=== PATIENT | female | born 1935 | race Caucasian/White ===

== ENCOUNTER 2016-08-09 13:49 | Inpatient (IN) | payer MEDICARE ==
[2016-08-09] MEDS ORDERED: NS 0.9% 1000 ML* 1,000 ML IV ONE (14:40)
[2016-08-09 14:55] LABS: Hematocrit 33 % (35-47); Mean Corpuscular HGB Conc 33 g/dl (31-36); Mean Corpuscular Hemoglobin 29 pg (27-31); Mean Corpuscular Volume 88 fL (80-97); Mean Platelet Volume 8 um3 (7.4-10.4); Red Blood Count 3.73 10^6/ul (4.0-5.4); Red Cell Distribution Width 14 % (10.5-15); White Blood Count 10.8 10^3/ul (3.5-10.8)
[2016-08-09] MEDS ORDERED: Vancomycin(*) 1,500 MG in NS 0.9% 250 ML* 250 ML IVPB ONE (15:04)
[2016-08-09] MEDS ORDERED: Cefepime(*) 2 GM in NS 0.9% 50 ML* 50 ML IVPB ONE (15:05)
[2016-08-09 15:07] LABS: Albumin 3.1 g/dL (3.2-5.2); BUN/Creatinine Ratio 16.7 (8-20); EGFR African American 62.5 (>60); EGFR Non-African American 48.6 (>60); Globulin 3.9 g/dL (2-4); Potassium 2.8 mmol/L (3.5-5.0)
[2016-08-09 15:13] LABS: Troponin I 0.11 ng/mL (<0.04)
[2016-08-09 15:25] LABS: C Reactive Protein 351.78 mg/L (< 5.00)
[2016-08-09] MEDS ORDERED: NS 0.9% 250 ML* 250 ML ONE (15:52)
[2016-08-09 16:05] LABS: Erythrocyte Sed Rate 112 mm/Hr (0-40)
--- NOTE | 2016-08-09 16:09 | RAD ---
INDICATION: Fever COMPARISON: Most recent comparison chest x-ray is dated August 24, 2014 TECHNIQUE: Single AP portable view of the chest was obtained. FINDINGS: Image quality is compromised due to the relative inferiority of a portable chest x-ray. The heart and mediastinum exhibit normal size and contour. There is been interval development of a 8 cm mass overlying the lateral aspect of the right upper lobe. The mass abuts the chest wall. There is no evidence of a large pleural effusion. Visualized bones are normal for the patient's age. IMPRESSION: 8 cm mass overlying the right lateral aspect of the right upper lobe which could represent infectious pneumonia or a neoplastic mass. Follow-up chest x-ray after an appropriate course of therapy is recommended to ascertain resolution.
--- NOTE | 2016-08-09 16:11 | RAD ---
INDICATION: Fever COMPARISON: None TECHNIQUE: 4 view radiograph of the right knee. FINDINGS: The right knee prosthesis is anatomically aligned. There is no evidence of periprosthetic fracture or loosening. There is no joint effusion. IMPRESSION: Normal appearance of anatomically aligned right knee prosthesis. If the patient's symptoms persist, follow-up imaging is recommended.
--- NOTE | 2016-08-09 17:16 | RAD ---
INDICATION: Better characterize right upper lobe mass COMPARISON: Same day chest x-ray that shows an approximately 8 cm mass overlying the lateral aspect of the right upper lobe. TECHNIQUE: Axial source images of the chest were acquired without intravenous contrast from just above the lung apices to the base of the diaphragm. Coronal and sagittal reconstructed images were acquired. FINDINGS: Corresponding to the mass seen on the same day chest x-ray there is patchy density overlying the right upper lobe measuring 4.6 x 9.5 cm in the axial plane at its most confluent portion. There are additional patchy densities neighboring this mass. There are air bronchograms. Linear density in the posterior aspect of the right middle and left lower lobes have a morphology more consistent with atelectasis. There is no large pleural effusion. The heart is normal in size. There is no evidence of pericardial effusion. There is no evidence of aortic aneurysm or dissection. Calcification is noted at the aortic arch and origin of the great arch branching vessels. Mediastinal lymph nodes are visualized but none are pathologically enlarged. There is no pathologic lymphadenopathy in either axilla. Multilevel degenerative changes of the thoracic spine include loss of intervertebral disc height and vacuum disc phenomenon. There is a right of midline fat-containing ventral hernia. Otherwise limited views of the upper abdomen show no acute abnormalities. IMPRESSION: 1. Predominantly right upper lobe density exhibiting air bronchograms exhibits a morphology most consistent with infectious pneumonia, however neoplasm is not excluded on this imaging alone. Follow-up imaging after an appropriate course of therapy is advised to ascertain resolution. 2. Additional chronic and degenerative findings described in the body of the report.
[2016-08-09] MEDS ORDERED: Morphine INJ* 2 MG/ML 1 ML CARPUJECT IV PRN (17:17)
--- NOTE | 2016-08-09 17:17 | ADMNOTE ---
Subjective Date of Service: 08/09/16 Interval History: ADMISSION HISTORY AND PHYSICAL EXAM: Allergies Allergy/AdvReac Type Severity Reaction Status Date / Time Adhesive Tape Allergy Rash Verified 03/09/16 09:51 Ciprofloxacin [From Cipro] AdvReac Vomiting Verified 03/09/16 09:51 Erythromycin AdvReac Vomiting Verified 03/09/16 09:51 Iodine AdvReac Anaphylatic Verified 03/09/16 09:51 Shock Penicillins AdvReac Hives/Diff. Verified 03/09/16 09:51 Breathing/I tching Sulfa Drugs AdvReac Nausea Verified 03/09/16 09:51 Tetracycline AdvReac Nausea Verified 03/09/16 09:51 Home Medications Medication Instructions Recorded Confirmed Type Montelukast Sodium TAB* [Singulair 10 mg PO DAILY 05/09/12 06/26/16 History 5 mg TAB*] Apple Cider Vinegar 600 mg PO DAILY 03/19/14 06/26/16 History Dicyclomine CAP* [Bentyl CAP*] 10 mg PO QID 03/19/14 06/26/16 History Estropipate(NF) [Ogen(NF)] 0.75 mg PO QAM 03/19/14 06/26/16 History Fluticasone NASAL * [Flonase *] 2 spray BOTH NARES DAILY 03/19/14 06/26/16 History Lhrnflhrclw-LCI-Lve C-Manganes 1 tab PO DAILY 03/19/14 06/26/16 History [Glucosamine MSM Complex] Levothyroxine TAB* [Synthroid 100 100 mcg PO 0800 03/19/14 06/26/16 History MCG TAB*] Magnesium Gluconate [Mag-G] 500 mg PO DAILY 03/19/14 06/26/16 History Ondansetron [Zofran Odt] 8 mg SL Q6H PRN 03/19/14 06/26/16 History oxyCODONE TAB* [Roxycodone TAB 5 5 - 10 mg PO Q6H PRN MDD 40 mg 03/19/14 History mg*] Docusate CAP* [Colace Cap*] 100 mg PO BID 08/22/14 06/26/16 History Meclizine TAB* [Antivert 12.5 TAB*] 25 mg PO QID PRN 01/16/16 06/26/16 History Methocarbamol TAB* [Robaxin TAB*] 500 mg PO Q6H PRN 01/16/16 06/26/16 History Mometasone/Formoter 200/5 MDI* 2 puff INH BID 01/16/16 06/26/16 History [Dulera 200/5 MDI*] Multivitamins/Minerals TAB* 1 tab PO DAILY 01/16/16 06/26/16 History [Theragran/minerals TAB*] Potassium Chlor TAB* [Potassium 20 meq PO QID 01/16/16 06/26/16 History Chlor TAB 20 MEQ*] Senna TAB* [Senokot TAB*] 1 tab PO DAILY 01/16/16 06/26/16 History Sertraline* [Zoloft*] 150 mg PO BID 01/16/16 06/26/16 History Triamterene/HCTZ 37.5-25 MG* 1 cap PO DAILY 01/16/16 06/26/16 History [Dyazide CAP*] oxyCODONE SR TAB(*) [Oxycontin 40 40 mg PO Q12HR 01/16/16 06/26/16 History mg (*)] HPI: Patient had temp about 101 and some delirium 2 dys ago. She was prescribed oseltamivir and took 3 doses so far. THis AM her temp at home was 104+ and she was very delirious. She now c/o R sided chest pain. Some cough, little sputum. Family History: Findings - father and brother had lung cancer, mother had colon cancer Social History: Findings - Lives with her son who is her SDM. Never smoked, occ alcohol Past Medical History: Findings - herniorrhaphy 2012, bilateral CTR, colon resection, appy, abdominal hernia repair, bilateral TKA. Asthma, HTN, vertigo. Review of Systems - Measurements Intake and Output: Intake and Output Last 24 Hours 08/07/16 08/08/16 08/09/16 08/10/16 06:59 06:59 06:59 06:59 Weight 160 lb - Review of Systems Constitutional Symptoms: Negative: Weight Gain, Weight Loss, Weakness, Fatigue, Fever, Night Sweats, Unexplained Falls, Other Dermatology: Positive: Rash - R leg rash appeared today HEENT: Positive: Vertigo Eyes: Positive: Normal Thyroid: Positive: Primary Hypothyroidism Pulmonary: Positive: Cough, Shortness of Breath Cardiology: Positive: Normal Gastroenterology: Positive: Anorexia Endocrinology: Positive: Normal Neurology: Positive: Other - delirium with fever Psychiatry: Positive: Normal Allergic/Immunologic: Negative: Hx Anaphylaxis, Hx Angioedema, Hx Environmental, Hx Seasonal, Athsma, Hx HIV, Immunocompromise, Swollen Glands LymphNodes, Other Objective Active Medications: Heparin Sodium (Porcine) (Heparin Vial(*)) 5,000 units SUBCUT Q8HR [facility] Cefepime HCl 2 gm/ Sodium (Chloride) 50 mls @ 100 mls/hr IVPB Q12H [facility] Pharmacy Consult (Vancomycin Per Pharmacy*) 1 note FOLLOW UP .VANC PER PHARMACY [facility] Vital Signs 08/09/16 08/09/16 14:07 16:33 Temperature 98.9 F Pulse Rate 102 64 Respiratory 18 16 Rate Blood Pressure 104/48 102/54 (mmHg) O2 Sat by Pulse 95 98 Oximetry Oxygen Devices in Use Now: Nasal Cannula Appearance: Alert, partly up in bed. Frequent cough. Eyes: No Scleral Icterus Ears/Nose/Mouth/Throat: Clear Oropharnyx, Mucous Membranes Moist Neck: NL Appearance and Movements; NL JVP, No Thyroid Enlargement, Masses Respiratory: Symmetrical Chest Expansion and Respiratory Effort, Clear to Auscultation, Clear to Percussion Cardiovascular: NL Sounds; No Murmurs; No JVD, RRR, No Edema Abdominal: No Hepatosplenomegaly, - - marked hyperpigmentation, surgical scarring, hernia anterior abdominal wall. Lymphatic: No Cervical Adenopathy, No Axillary Adenopathy Extremities: No Edema, No Clubbing, Cyanosis Skin: No Nodules or Sclerosis, - - pink patchy rash lower R leg Neurological: Alert and Oriented x 3, NL Sensation Result Diagrams: 08/09/16 14:25 08/09/16 14:25 Assess/Plan/Problems-Billing Assessment: - Patient Problems (1) Pneumonia Current Visit: Yes Status: Acute Code(s): J18.9 - PNEUMONIA, UNSPECIFIED ORGANISM SNOMED Code(s): 805712540 Comment: Continue cefepimen and vanco, started in ED/ Guaifenesin ordered. (2) Hypothyroidism Current Visit: No Status: Chronic Code(s): E03.9 - HYPOTHYROIDISM, UNSPECIFIED SNOMED Code(s): 66088688 Comment: cont Synthroid (3) Asthma Current Visit: No Status: Chronic Priority: Medium Code(s): J45.909 - UNSPECIFIED ASTHMA, UNCOMPLICATED SNOMED Code(s): 002679734 Comment: continue home pulmonary meds (4) Chronic pain Current Visit: Yes Status: Acute Code(s): G89.29 - OTHER CHRONIC PAIN SNOMED Code(s): 19858340 Comment: Continue oxycodone SR, add IV morphine PRN.
[2016-08-09] MEDS ORDERED: Meclizine TAB* 12.5 MG PO PRN (17:18)
[2016-08-09] MEDS ORDERED: Potassium Chlor TAB* 10 MEQ TAB.ER PO ONE (18:00)
[2016-08-09] MEDS ORDERED: Vancomycin per Pharmacy* NOTE FOLLOW UP SCH (18:00)
[2016-08-09] MEDS: Mometasone/Formoter 200/5 MDI INH SCH (20:02)
[2016-08-09] MEDS: oxyCODONE SR TAB(*) 40 MG TAB.SR PO SCH (20:11)
[2016-08-09] MEDS: Ondansetron ODT TAB* 4 MG PO PRN (20:24)
--- NOTE | 2016-08-09 22:01 | ED ---
Uzair Barajas Claudia, scribed for Basil Chambers MD on 08/09/16 at 1452 . HPI Febrile Illness - HPI Summary HPI Summary: 81 year old female presents to the ED with fever. Pt notes she has been having intermittent fevers of 101 F since Wednesday. Pt also mentions that sudden onset Wednesday she has also been having right knee pain which has been replaced in the past. The right knee pain has been causing her such pain and discomfort that she is unable to ambulate. Pt also admits to chills, persistent cough,skin diaphoresis and some intermittent confusion. Pt family not that her fever spiked to 104 F which brought them to [facility] this pm. Pt family notes that her left LE has been more pink than the leg leg. Pt family also mention that she was up and cooking on and has not been right since. She has been taking ibuprofen for the fevers. Pt is not currently on any blood thinners. - History of Current Complaint Chief Complaint: EDFever Time Seen by Provider: 08/09/16 14:39 Hx Obtained From: Patient Onset/Duration: Started Days Ago - Wednesday08/07/16, Still Present Timing: Intermittent Pain Intensity: 10 Pain Scale Used: 0-10 Numeric Associated Signs and Symptoms: Chills, Cough, Diaphoresis, Joint Pain - right knee - Allergy/Home Medications Allergies/Adverse Reactions: Allergies Allergy/AdvReac Type Severity Reaction Status Date / Time Adhesive Tape Allergy Rash Verified 03/09/16 09:51 Ciprofloxacin [From Cipro] AdvReac Vomiting Verified 03/09/16 09:51 Erythromycin AdvReac Vomiting Verified 03/09/16 09:51 Iodine AdvReac Anaphylatic Verified 03/09/16 09:51 Shock Penicillins AdvReac Hives/Diff. Verified 03/09/16 09:51 Breathing/I tching Sulfa Drugs AdvReac Nausea Verified 03/09/16 09:51 Tetracycline AdvReac Nausea Verified 03/09/16 09:51 PMH/Surg Hx/FS Hx/Imm Hx Previously Healthy: Yes Endocrine/Hematology History: Reports: Hx Thyroid Disease - Hypothyroidism, Hx Anemia - hx of pt taking iron Cardiovascular History: Reports: Hx Deep Vein Thrombosis, Hx Embolism, Hx Hypertension, Other Cardiovascular Problems/Disorders Respiratory History: Reports: Hx Asthma, Hx Pneumonia, Hx Pulmonary Embolism - 2011 AFTER HAVING PNEUMONIA, Hx Seasonal Allergies, Other Respiratory Problems/ Disorders - PNEUMONIA- >2 YEARS AGO GI History: Reports: Hx Gastroesophageal Reflux Disease, Hx Hiatal Hernia Comment Only: Other GI Disorders - hernia repair x3 History: Reports: Other Problems/Disorders - BLADDER INFECTION, CKD stage II - pt. denies CKD, per H+P CKD Musculoskeletal History: Reports: Hx Arthritis, Hx Back Problems - Chronic back pain, spinal stenosis, scoliosis, Hx Scoliosis, Other Musculoskeletal History - osteoarthritis, spinal stenosis Sensory History: Reports: Hx Cataracts, Hx Contacts or Glasses - For reading Denies: Hx Hearing Aid Opthamlomology History: Reports: Hx Cataracts, Hx Contacts or Glasses - For reading Neurological History: Reports: Hx Nerve Disease - "stocking feet" tremors, Other Neuro Impairments/Disorders - PAIN CLINIC PT Psychiatric History: Reports: Hx Anxiety, Hx Depression - Surgical History Surgery Procedure, Year, and Place: Appendectomy. bilat ctr [facility]. L knee scope. lumbar discectomy 30 yrs ago. Abdominal Obstruction/Hernia Repair with Mesh syr 2012 - hernia repair x3 and replacement of infected mesh. Hysterectomy. right tkr 03/2014 [facility]. left TKR 08/23 [facility]. right macular hole repair syr. Bilateral cataract [facility] Hx Anesthesia Reactions: No Infectious Disease History: No Infectious Disease History: Denies: Traveled Outside the [place] in Last 30 Days - Family History Known Family History: Positive: Hypertension - Social History Occupation: Retired Alcohol Use: None Hx Substance Use: No Substance Use Type: Reports: None Hx Tobacco Use: No Smoking Status (MU): Never Smoked Tobacco Have You Smoked in the Last Year: No Review of Systems Positive: Fever, Chills, Skin Diaphoresis Eyes: Negative Positive: Other - congestion Cardiovascular: Negative Positive: Cough Gastrointestinal: Negative Negative: Abdominal Pain Genitourinary: Negative Positive: Other - right knee pain Negative: Rash Neurological: Negative Psychological: Normal All Other Systems Reviewed And Are Negative: Yes Physical Exam Triage Information Reviewed: Yes Vital Signs On Initial Exam: Initial Vitals Temp Pulse Resp BP Pulse Ox 98.9 F 102 18 104/48 95 08/09/16 14:07 08/09/16 14:07 08/09/16 14:07 08/09/16 14:07 08/09/16 14:07 Vital Signs Reviewed: Yes Appearance: Negative: Well-Appearing - generally weak, Eyes: Positive: EOMI ENT: Negative: Pharyngeal erythema Neck: Positive: Supple, Nontender Respiratory/Lung Sounds: Positive: Rhonchi - and congstion in the left lower lung. With good air movement. Negative: Wheezes Cardiovascular: Positive: RRR, S1, S2. Negative: Murmur, Rub Abdomen Description: Positive: Nontender, Soft, Other: - ventral abd wall hernia but is not tender. Negative: Distended, Guarding Musculoskeletal: Positive: Other - Right LE is warmer and a pinkish sin color than the left. The right knee has moderate sized effusion with obvious pain with passive ROM of the right knee. Neurological: Positive: Alert, Oriented to Person Place, Time Psychiatric: Positive: Other - logical and coherent Diagnostics - Vital Signs Vital Signs Temp Pulse Resp BP Pulse Ox 08/09/16 14:07 98.9 F 102 18 104/48 95 - Laboratory Lab Results: Lab Results 08/09/16 08/09/16 08/09/16 Range/Units 14:25 14:25 14:25 WBC 10.8 (3.5-10.8) 10^3/ul RBC 3.73 L (4.0-5.4) 10^6/ul Hgb 11.0 L (12.0-16.0) g/dl Hct 33 L (35-47) % MCV 88 (80-97) fL MCH 29 (27-31) pg MCHC 33 (31-36) g/dl RDW 14 (10.5-15) % Plt Count 250 (150-450) 10^3/ul MPV 8 (7.4-10.4) um3 Neut % (Auto) 91.0 H (38-83) % Lymph % (Auto) 4.7 L (25-47) % Patrick % (Auto) 4.0 (1-9) % Eos % (Auto) 0.1 (0-6) % Baso % (Auto) 0.2 (0-2) % Absolute Neuts (auto) 9.8 H (1.5-7.7) 10^3/ul Absolute Lymphs (auto) 0.5 L (1.0-4.8) 10^3/ul Absolute Monos (auto) 0.4 (0-0.8) 10^3/ul Absolute Eos (auto) 0 (0-0.6) 10^3/ul Absolute Basos (auto) 0 (0-0.2) 10^3/ul Absolute Nucleated RBC 0.01 10^3/ul Nucleated RBC % 0 ESR 112 H (0-40) mm/Hr INR (Anticoag Therapy) (0.89-1.11) APTT (26.0-36.3) seconds Sodium 127 L (133-145) mmol/L Potassium 2.8 L (3.5-5.0) mmol/L Chloride 95 L (101-111) mmol/L Carbon Dioxide 23 (22-32) mmol/L Anion Gap 9 (2-11) mmol/L BUN 18 (6-24) mg/dL Creatinine 1.08 H (0.51-0.95) mg/dL Est GFR ( Amer) 62.5 (>60) Est GFR (Non-Af Amer) 48.6 (>60) BUN/Creatinine Ratio 16.7 (8-20) Glucose 101 H (70-100) mg/dL Lactic Acid 1.0 (0.5-2.0) mmol/L Calcium 9.0 (8.6-10.3) mg/dL Total Bilirubin 1.00 (0.2-1.0) mg/dL AST 38 (13-39) U/L ALT 12 (7-52) U/L Alkaline Phosphatase 73 (34-104) U/L Troponin I 0.11 H* (<0.04) ng/mL C-Reactive Protein 351.78 H (< 5.00) mg/L Total Protein 7.0 (6.4-8.9) g/dL Albumin 3.1 L (3.2-5.2) g/dL Globulin 3.9 (2-4) g/dL Albumin/Globulin Ratio 0.8 L (1-3) 08/09/16 Range/Units 15:00 WBC (3.5-10.8) 10^3/ul RBC (4.0-5.4) 10^6/ul Hgb (12.0-16.0) g/dl Hct (35-47) % MCV (80-97) fL MCH (27-31) pg MCHC (31-36) g/dl RDW (10.5-15) % Plt Count (150-450) 10^3/ul MPV (7.4-10.4) um3 Neut % (Auto) (38-83) % Lymph % (Auto) (25-47) % Patrick % (Auto) (1-9) % Eos % (Auto) (0-6) % Baso % (Auto) (0-2) % Absolute Neuts (auto) (1.5-7.7) 10^3/ul Absolute Lymphs (auto) (1.0-4.8) 10^3/ul Absolute Monos (auto) (0-0.8) 10^3/ul Absolute Eos (auto) (0-0.6) 10^3/ul Absolute Basos (auto) (0-0.2) 10^3/ul Absolute Nucleated RBC 10^3/ul Nucleated RBC % ESR (0-40) mm/Hr INR (Anticoag Therapy) 1.09 (0.89-1.11) APTT 30.6 (26.0-36.3) seconds Sodium (133-145) mmol/L Potassium (3.5-5.0) mmol/L Chloride (101-111) mmol/L Carbon Dioxide (22-32) mmol/L Anion Gap (2-11) mmol/L BUN (6-24) mg/dL Creatinine (0.51-0.95) mg/dL Est GFR ( Amer) (>60) Est GFR (Non-Af Amer) (>60) BUN/Creatinine Ratio (8-20) Glucose (70-100) mg/dL Lactic Acid (0.5-2.0) mmol/L Calcium (8.6-10.3) mg/dL Total Bilirubin (0.2-1.0) mg/dL AST (13-39) U/L ALT (7-52) U/L Alkaline Phosphatase (34-104) U/L Troponin I (<0.04) ng/mL C-Reactive Protein (< 5.00) mg/L Total Protein (6.4-8.9) g/dL Albumin (3.2-5.2) g/dL Globulin (2-4) g/dL Albumin/Globulin Ratio (1-3) Result Diagrams: 08/09/16 14:25 08/09/16 14:25 Lab Statement: Any lab studies that have been ordered have been reviewed, and results considered in the medical decision making process. - Radiology CHEST XRAY Xray Interpretation: Positive (See Comments) - 8CM MASS OVERLYING THE RIGHT LATERAL ASPECT OF THE RIGHT UPPER LOBE WHICH COULD REPRESENT INFECTIOUS PNEUMONIA OR A NEOPLASTIC MASS. FOLLOW-UP CHEST-XRAY AFTER AN APPROPRIATE COURSE OF THERAPY IS RECOMMENDED TO ASCERTIAN RESOLUTION. Radiology Interpretation Completed By: Radiologist RIGHT KNEE XRAY Xray Interpretation: No Acute Changes - NORMAL APPERANCE OF ANATOMICALLY ALIGNED RIGHT KNEE PROTHESIS. IF THE PATIENT'S SYMPTOMS PERSIST, FOLLOW-UP IMAGING IS RECOMMENDED. Radiology Interpretation Completed By: Radiologist - EKG 15:36 Cardiac Rate: NL EKG Rhythm: Sinus Rhythm - 92 beats/min Course/Dx - Course Assessment/Plan: Fever and cough for 2 days. Fever has been as high as 104F, on x-ray there is obvious sign of pneumonia which might be from mass or tumor. Ct has been ordered. I was also concerned about knee pain and leg pain, the distal olsen is red the right knee feels boyd and boggy with negative ballottement. On xray there is clearly, read by myself and the radiologist, no effusion .I don t believe there is enough evidence for septic arthritis. With this clear pneumonia on xray and reported new cough I believe her diagnosis is much more consistent with pneumonia. I do recommend admission for further evaluation and I will call the hospitalist. - Diagnoses Provider Diagnoses: Pneumonia - Provider Notifications Discussed Care Of Patient With: Dr. Aviles accepts patient for admission to [facility]. Discharge - Discharge Plan Condition: Guarded Disposition: ADMITTED TO [facility] The documentation as recorded by the Uzair laureano Claudia accurately reflects the service I personally performed and the decisions made by me, Basil Chambers MD.
[2016-08-09] MEDS: guaiFENesin LIQ* 100 MG/5 ML UDC PO SCH (22:32)
[2016-08-09] MEDS: Senna TAB PO SCH (22:33)
[2016-08-09] MEDS: Docusate CAP* 100 MG PO SCH (22:35)
[2016-08-09] MEDS: Potassium Chlor TAB* 20 MEQ TAB.ER PO SCH (22:35)
[2016-08-09] MEDS: Sertraline* 100 MG TAB PO SCH (22:35)
[2016-08-09] MEDS: Heparin VIAL(*) 5000 UNITS/ML VIAL (FIVE THOUSAND) SUBCUT SCH (22:38)
[2016-08-09] MEDS: Acetaminophen TAB* 325 MG PO PRN (22:52)
[2016-08-09] MEDS: Dicyclomine CAP* 10 MG PO SCH (23:34)
[2016-08-10] MEDS ORDERED: Morphine INJ* 2 MG/ML 1 ML CARPUJECT IV PRN ×2 (01:30→10:11)
[2016-08-10] MEDS: Cefepime(*) 2 GM in NS 0.9% 50 ML* 50 ML IVPB SCH ×2 (06:23→18:01)
[2016-08-10] MEDS: Levothyroxine TAB* 100 MCG TAB PO SCH (06:28)
[2016-08-10] MEDS: Heparin VIAL(*) 5000 UNITS/ML VIAL (FIVE THOUSAND) SUBCUT SCH ×3 (06:28→21:37)
[2016-08-10 06:37] LABS: BUN/Creatinine Ratio 19.5 (8-20); Calcium 8.7 mg/dL (8.6-10.3); EGFR African American 49.1 (>60); EGFR Non-African American 38.2 (>60); Potassium 4.4 mmol/L (3.5-5.0)
[2016-08-10] MEDS: Ondansetron ODT TAB* 4 MG PO PRN (08:13)
[2016-08-10] MEDS: guaiFENesin LIQ* 100 MG/5 ML UDC PO SCH ×4 (08:14→21:29)
[2016-08-10] MEDS: Dicyclomine CAP* 10 MG PO SCH ×3 (08:14→21:28)
[2016-08-10] MEDS: Montelukast Sodium TAB* 10 MG PO SCH (08:15)
[2016-08-10] MEDS: Potassium Chlor TAB* 20 MEQ TAB.ER PO SCH ×4 (08:15→21:28)
[2016-08-10] MEDS: Magnesium Oxide TAB* 400 MG PO SCH (08:15)
[2016-08-10] MEDS: Senna TAB PO SCH ×2 (08:16→21:25)
[2016-08-10] MEDS: Docusate CAP* 100 MG PO SCH ×2 (08:16→21:26)
[2016-08-10] MEDS: Sertraline* 100 MG TAB PO SCH (08:17)
[2016-08-10] MEDS: oxyCODONE SR TAB(*) 40 MG TAB.SR PO SCH ×2 (08:17→21:27)
[2016-08-10] MEDS: Fluticasone NASAL SPRAY 50MCG* 16 gm SPRAY BTL BOTH NARES SCH (08:20)
[2016-08-10] MEDS: Mometasone/Formoter 200/5 MDI INH SCH ×2 (08:20→20:38)
[2016-08-10] MEDS ORDERED: Senna TAB PO SCH (09:00)
[2016-08-10 09:30] LABS: Urine Bacteria 1+ (Absent); Urine Bilirubin Negative (Negative); Urine Glucose Negative (Negative); Urine Nitrite Negative (Negative)
[2016-08-10] MEDS ORDERED: Albuterol HFA INHALER* 8 gm MDI INH PRN (10:05)
[2016-08-10] MEDS: Acetaminophen TAB* 325 MG PO PRN (10:54)
[2016-08-10] MEDS: oxyCODONE TAB* 5 MG TAB PO SCH ×3 (14:25→21:22)
[2016-08-10] MEDS ORDERED: Vancomycin Random Level* NOTE FOLLOW UP ONE (15:00)
[2016-08-10] MEDS ORDERED: Vancomycin(*) 1,250 MG in NS 0.9% 250 ML* 250 ML IVPB SCH (16:00)
[2016-08-10] MEDS: Cetirizine* 10 MG TAB PO SCH (21:28)
[2016-08-11] MEDS: Vancomycin(*) 1,000 MG in NS 0.9% 250 ML* 250 ML IVPB SCH ×2 (04:18→16:21)
[2016-08-11 05:34] LABS: Hematocrit 29 % (35-47); Hemoglobin 9.1 g/dl (12.0-16.0); Mean Corpuscular HGB Conc 31 g/dl (31-36); Mean Corpuscular Hemoglobin 28 pg (27-31); Mean Corpuscular Volume 91 fL (80-97); Mean Platelet Volume 8 um3 (7.4-10.4); Red Blood Count 3.21 10^6/ul (4.0-5.4); Red Cell Distribution Width 15 % (10.5-15); White Blood Count 21.3 10^3/ul (3.5-10.8)
[2016-08-11] MEDS: Heparin VIAL(*) 5000 UNITS/ML VIAL (FIVE THOUSAND) SUBCUT SCH ×3 (05:54→21:17)
[2016-08-11 05:57] LABS: Albumin 2.7 g/dL (3.2-5.2); BUN/Creatinine Ratio 25.3 (8-20); C Reactive Protein 391.28 mg/L (< 5.00); Calcium 8.7 mg/dL (8.6-10.3); EGFR African American 76.1 (>60); EGFR Non-African American 59.2 (>60); Globulin 3.5 g/dL (2-4); Potassium 4.6 mmol/L (3.5-5.0); Total Bilirubin 0.9 mg/dL (0.2-1.0); Total Protein 6.2 g/dL (6.4-8.9)
[2016-08-11] MEDS: Cefepime(*) 2 GM in NS 0.9% 50 ML* 50 ML IVPB SCH ×3 (06:12→21:00)
[2016-08-11] MEDS: oxyCODONE TAB* 5 MG TAB PO SCH ×2 (08:06→14:08)
[2016-08-11] MEDS ORDERED: Sertraline* 50 MG TAB PO SCH (09:00)
[2016-08-11] MEDS: Docusate CAP* 100 MG PO SCH ×2 (09:03→20:34)
[2016-08-11] MEDS: Magnesium Oxide TAB* 400 MG PO SCH (09:03)
[2016-08-11] MEDS: Montelukast Sodium TAB* 10 MG PO SCH (09:03)
[2016-08-11] MEDS: Potassium Chlor TAB* 20 MEQ TAB.ER PO SCH ×4 (09:03→20:33)
[2016-08-11] MEDS: Mometasone/Formoter 200/5 MDI INH SCH ×2 (09:04→20:18)
[2016-08-11] MEDS: Levothyroxine TAB* 100 MCG TAB PO SCH (09:04)
[2016-08-11] MEDS: Fluticasone NASAL SPRAY 50MCG* 16 gm SPRAY BTL BOTH NARES SCH (09:04)
[2016-08-11] MEDS: Dicyclomine CAP* 10 MG PO SCH ×3 (09:04→20:34)
[2016-08-11] MEDS: oxyCODONE SR TAB(*) 40 MG TAB.SR PO SCH ×2 (09:04→20:33)
[2016-08-11] MEDS: Senna TAB PO SCH ×2 (09:04→20:32)
[2016-08-11] MEDS: guaiFENesin LIQ* 100 MG/5 ML UDC PO SCH ×4 (09:05→20:34)
--- NOTE | 2016-08-11 15:25 | RAD ---
INDICATION: Delirium COMPARISON: None. TECHNIQUE: Contiguous axial sections of the brain were obtained from the skull base to the vertex without contrast. FINDINGS: The ventricles, cisterns and sulci are within normal limits. The carmichael-white matter differentiation is adequately maintained and there is no sulcal effacement. No significant focal abnormality or mass effect is present. There is no evidence for intracranial hemorrhage. No significant focal osseous abnormality is present. The visualized portion of the paranasal sinuses and mastoid air cells appear clear. IMPRESSION: Normal CT of the brain.
[2016-08-11] MEDS: Acetaminophen TAB* 325 MG PO PRN (16:22)
[2016-08-11 16:41] LABS: Body Fluid Appearance Cloudy
[2016-08-11 16:53] LABS: Body Fluid WBC 66864 /mcL
[2016-08-11 16:54] LABS: Body Fluid Total Cells Counted 100
--- NOTE | 2016-08-11 19:44 | RAD ---
INDICATION: Sepsis COMPARISON: Most recent chest x-ray August 09, 2016 TECHNIQUE: PA and lateral views of the chest were obtained. FINDINGS: There has been interval increase in the size of the right upper lobe pulmonary mass now measuring 9.1 cm in greatest dimension increased from 8 cm on the previous chest x-ray. Additional patchy densities are seen overlying the right lung similar to the previous chest x-ray and corresponding to findings on the patient's recent CT of the chest. IMPRESSION: THERE HAS BEEN SLIGHT INTERVAL INCREASE IN THE SIZE OF THE RIGHT LATERAL UPPER CHEST MASS RELATIVE TO THE MOST RECENT AUGUST 09, 2016 CHEST X-RAY.
[2016-08-11 19:56] LABS: PCO2 Arterial 37 mmHg (35-45)
[2016-08-11] MEDS: Cetirizine* 10 MG TAB PO SCH (20:33)
[2016-08-11 22:04] LABS: Magnesium 1.9 mg/dL (1.9-2.7); Phosphorus 2.5 mg/dL (2.5-5.0)
--- NOTE | 2016-08-11 22:10 | CONS ---
CONSULTATION NOTE: DATE OF CONSULTATION: 08/11/16 DICTATED FOR: Dr. Grisel Medellin. CHIEF COMPLAINT: Pneumonia and right knee and olsen pain and swelling. HISTORY OF PRESENT ILLNESS: The patient was admitted on 08/09/16 with pneumonia and placed on cefepime and vancomycin. She has also had knee pain and knee and olsen swelling and redness. Redness was more yesterday than today. The patient has bilateral total knee replacements from previous years. Prior to admission, her temp went to 104 and has not been that high since she has been in the hospital. She was admitted and placed on subcu heparin 5000 units q.8h, cefepime 2 g IV q.12h. and vancomycin per pharmacy protocol for pneumonia. MEDICATIONS: Included: 1. Albuterol. 2. Thyroid replacement. 3. Meclizine. 4. OxyContin 40 mg b.i.d. 5. Oxycodone 5 mg 1 to 2 tablets every 6 hours. 6. Zofran as needed for nausea. 7. Multivitamins. 8. Aleve 2 in the morning. 9. Methocarbamol 500 mg 1 to 2 each day as needed. 10. Hydrochlorothiazide/triamterene 37.5/25 mg one a day. 11. Zoloft 100 mg each day. 12. Potassium 20 mEq 4 times a day. ALLERGIES: Include SULFA, PENICILLIN, CIPRO, TETRACYCLINE, IODINE, ERYTHROMYCIN , and ADHESIVE TAPE. The patient is ALSO ALLERGIC TO RASPBERRY AND BLUEBERRY YOGURT. LABORATORY DATA: White count upon admission was 17186, white count on 08/11/16 was 91679, hemoglobin 9.1, hematocrit 29, platelets [id number]. The CRP 391, sed rate 112, albumin 2.7. PHYSICAL EXAMINATION: Vital signs: The temperature since she has been in the hospital 100.2, 98.8 and this afternoon it is 99.9. General: The patient is sleepy appearing, not acutely distress at rest. She has a hacking cough. Extremities: She is able to lift both of her legs and she lifts the left leg more easily than the right. The right knee is larger than the left. The right knee has an effusion with extension to 0, flexion 70 degrees, alignment is satisfactory. The ligaments are stable. The knee has some tenderness. Her calf and olsen are nontender. The dorsalis pedis pulse is present on the right foot. She has active movements of the ankle up and down. When she has been up today, she has been limping on the left. The right knee radiographs on 08/09/2016 were not remarkable. IMPRESSIONS: The patient has staph aureus pneumonia. PLAN: Today, we recommended an aspiration of the knee. The knee was aspirated obtaining two-thirds of an ounce of cloudy yellow fluid, which will be sent for gram staining culture and sensitivity and cell count. I recommended cefepime and vancomycin, continue the right total knee replacement, certainly could be infected and some of the knee replacement may have to be removed if her medical condition will allow it. We will follow with you. [id number]/CPS #: [id number] FUNMILAYO
[2016-08-12] MEDS ORDERED: Vancomycin Trough Check NOTE FOLLOW UP ONE (03:30)
[2016-08-12] MEDS: Vancomycin(*) 1,000 MG in NS 0.9% 250 ML* 250 ML IVPB SCH ×2 (04:19→15:49)
[2016-08-12 05:27] LABS: Hematocrit 28 % (35-47); Hemoglobin 9.2 g/dl (12.0-16.0); Mean Corpuscular HGB Conc 33 g/dl (31-36); Mean Corpuscular Hemoglobin 29 pg (27-31); Mean Corpuscular Volume 88 fL (80-97); Mean Platelet Volume 8 um3 (7.4-10.4); Red Blood Count 3.22 10^6/ul (4.0-5.4); Red Cell Distribution Width 15 % (10.5-15)
[2016-08-12 05:49] LABS: Albumin 2.8 g/dL (3.2-5.2); BUN/Creatinine Ratio 22.7 (8-20); C Reactive Protein 373.52 mg/L (< 5.00); EGFR African American 95.1 (>60); Magnesium 1.9 mg/dL (1.9-2.7); Potassium 4.5 mmol/L (3.5-5.0); Total Protein 6.8 g/dL (6.4-8.9); Uric Acid 2.9 mg/dL (2.3-6.6)
[2016-08-12 06:04] LABS: TSH (Thyroid Stimulating Horm) 0.95 mcIU/mL (0.34-5.60)
[2016-08-12] MEDS: Heparin VIAL(*) 5000 UNITS/ML VIAL (FIVE THOUSAND) SUBCUT SCH ×3 (06:05→20:52)
--- NOTE | 2016-08-12 08:53 | RAD ---
HISTORY: Pneumonia COMPARISONS: August 11, 2016 VIEWS:1: Single frontal portable view of the chest at 8:30 AM FINDINGS: LINES AND TUBES: None. CARDIOMEDIASTINAL SILHOUETTE: The cardiomediastinal silhouette is normal for portable technique. PLEURA: The costophrenic angles are sharp. No pleural abnormalities are noted. LUNG PARENCHYMA: There is persistent and somewhat progressed, confluent alveolar opacification of the right upper lung ABDOMEN: The upper abdomen is clear. There is no subphrenic gas. BONES AND SOFT TISSUES: No bone or soft tissue abnormalities are noted. IMPRESSION: Persistent and somewhat progressed right upper lobe consolidation versus mass. Recommend follow-up until resolution to exclude underlying pulmonary parenchymal pathology
[2016-08-12] MEDS: Mometasone/Formoter 200/5 MDI INH SCH ×2 (10:00→19:09)
[2016-08-12] MEDS: Fluticasone NASAL SPRAY 50MCG* 16 gm SPRAY BTL BOTH NARES SCH (10:16)
[2016-08-12] MEDS: oxyCODONE SR TAB(*) 40 MG TAB.SR PO SCH ×2 (10:16→20:50)
[2016-08-12] MEDS: Senna TAB PO SCH ×2 (10:16→20:53)
[2016-08-12] MEDS: Magnesium Oxide TAB* 400 MG PO SCH (10:17)
[2016-08-12] MEDS: Potassium Chlor TAB* 20 MEQ TAB.ER PO SCH ×4 (10:17→20:46)
[2016-08-12] MEDS: Docusate CAP* 100 MG PO SCH ×2 (10:17→20:50)
[2016-08-12] MEDS: Sertraline* 50 MG TAB PO SCH ×2 (10:18→20:51)
[2016-08-12] MEDS: Levothyroxine TAB* 100 MCG TAB PO SCH (10:18)
[2016-08-12] MEDS: Montelukast Sodium TAB* 10 MG PO SCH (10:18)
[2016-08-12] MEDS: Dicyclomine CAP* 10 MG PO SCH ×3 (10:24→20:49)
[2016-08-12] MEDS: guaiFENesin LIQ* 100 MG/5 ML UDC PO SCH ×4 (10:24→20:47)
--- NOTE | 2016-08-12 10:51 | ECHO ---
Patient: QUENTIN STEWARD [facility] Rec#: [id number] : 1935 Date: 08/12/2016 Age: 81y Height: 147.32 cm / 58.0 in Weight: 72.57 kg / 159.9 lbs Sex: F BSA: 1.66 Room#: [facility] Admit Date#: 08/09/2016 Type: Inpatient Referring: Grisel Medellin MD Reading: Casi Marrero MD [employer]: Carli Sierra [facility] Transthoracic Echocardiogram Indication: Fever/Resp Abn BP: 121/52 HR: 98 Rhythm: NSR Findings History: Pneumonia,septic knee, fever,asthma,vertigo,HTN,hypothyroid, large ventral hernia. Technical Comments: The study quality is fair. Completed at 0918. The study is technically limited due to patient body habitus. Left Ventricle: The left ventricular chamber size is decreased. Mild to moderate concentric left ventricular hypertrophy is observed. Global left ventricular wall motion and contractility are within normal limits. The estimated ejection fraction is 55-60%. Normal left ventricular diastolic filling is observed. Left Atrium: The left atrium is mild to moderately dilated. Right Ventricle: The right ventricular cavity size is normal. The right ventricular global systolic function is normal. Right Atrium: The right atrium is mildly dilated. Aortic Valve: The aortic valve is trileaflet. There is no evidence of aortic regurgitation. There is no evidence of aortic stenosis. Mitral Valve: The mitral valve leaflets are mildly thickened. There is mild mitral regurgitation. There is no evidence of mitral stenosis. Tricuspid Valve: The tricuspid valve leaflets are normal. There is moderate tricuspid regurgitation. There is evidence of mild pulmonary hypertension. There is no tricuspid stenosis. Pulmonic Valve: The pulmonic valve appears normal. There is no evidence of pulmonic regurgitation. There is no pulmonic stenosis. Pericardium: A pericardial fat pad is visualized. Aorta: There is mild dilatation of the ascending aorta. There is no dilatation of the aortic arch. There is no dilation of the aortic root. Pulmonary Artery: The main pulmonary artery appears normal. Venous: The venous system is not well visualized. Conclusions The study is technically limited due to patient body habitus. Mild to moderate concentric left ventricular hypertrophy is observed. Global left ventricular wall motion and contractility are within normal limits. The estimated ejection fraction is 55-60%. The right ventricular global systolic function is normal. The left atrium is mild to moderately dilated. There is mild mitral regurgitation. There is moderate tricuspid regurgitation. There is evidence of mild pulmonary hypertension: 52 mmHg. No evidence of vegetations, but only fair visualization of the valves. Compared with prior echo of 12/22/2011, the degree of TR has increased, PA pressure not significantly changed. Measurements Name Value Normal Range RVIDd (AP) 2D 3.1 cm (0.9 - 2.6) RVDdMajor (2D) 3.5 cm (2.2 - 4.4) RAd ISD 4CH 5.4 cm (3.4 - 4.9) RA (A4C)W 2.6 cm (2.9 - 4.6) IVSd (2D) 1.4 cm (0.6 - 1) LVPWd (2D) 1.2 cm (0.6 - 1) LVIDd (2D) 2.9 cm (3.6 - 5.4) LVIDs (2D) 2.4 cm - LV FS (2D) 17 % (25 - 45) Aortic Annulus 2.3 cm (1.4 - 2.6) Ao root diameter (2D) 3 cm (2.1 - 3.5) Ascending Ao 3.7 cm (2.1 - 3.4) Aortic arch 2.5 cm (1.8 - 3.4) Descending Ao 0.4 cm - LA dimension (AP) 2D 4.7 cm (2.3 - 3.8) LAd ISD 4CH 5.5 cm (2.9 - 5.3) LA ISD 4CH W 3.7 cm (2.5 - 4.5) Name Value Normal Range LA ESV SP 4CH (A/L) 44 ml - LA ESV SP 2CH (A/L) 59 ml - LA ESV BP (A/L) 56 ml - LA ESV BP (A/L) index 33.65 ml/m2 - LA ESV SP 4CH (MOD) 41 ml - LA ESV SP 2CH (MOD) 57 ml - Name Value Normal Range MV E-wave Vmax 1.1 m/sec - MV deceleration time 187 msec - MV A-wave Vmax 1.1 m/sec - MV E:A ratio 1.02 ratio - LV septal e' Vmax 0.08 m/sec - LV lateral e' Vmax 0.1 m/sec - LV E:e' septal ratio 13.75 ratio - LV E:e' lateral ratio 11 ratio - Name Value Normal Range AV Vmax 1.7 m/sec - AV VTI 33 cm - AV peak gradient 10.96 mmHg - AV mean gradient 6.28 mmHg - LVOT Vmax 1.3 m/sec - LVOT VTI 25.8 cm - LVOT peak gradient 6.35 mmHg - LVOT mean gradient 3.17 mmHg - Name Value Normal Range TR Vmax 3.3 m/sec - TR peak gradient 44 mmHg - RAP 8 mmHg - RVSP 52 mmHg - Name Value Normal Range PV Vmax 1 m/sec - PV peak gradient 3.82 mmHg -
[2016-08-12 11:15] LABS: Corrected Retic Count 0.6 % (0.5-1.5)
--- NOTE | 2016-08-12 12:18 | CONS ---
CONSULTATION REPORT: DATE OF CONSULT: 08/12/16 REQUESTING PHYSICIAN: Dr. Medellin. CONSULTING SERVICE: Infectious Disease. REASON FOR CONSULT: Staphylococcal pneumonia and right knee infection. IMPRESSION: 1. Right upper lobe infiltrate with cough, hypoxia, and methicillin-resistant Staphylococcus aureus in the sputum; methicillin-resistant Staphylococcus aureus pneumonia. 2. Right knee pain, swelling, and worsening pain with weightbearing, aspiration showed cloudy fluid and 65,000 white cells, 97% neutrophils, Gram stain showed gram- positive cocci. Cultures pending. The PCR was methicillin- resistant Staphylococcus aureus and Staphylococcus aureus negative. This is an infected prosthetic knee. Microbiologic differential includes staph including coagulase-negative staphylococci. 3. History of deep venous thrombosis and pulmonary embolism. 4. Chronic kidney disease, stage 2. 5. Myoclonus, question cefepime neurotoxicity. RECOMMENDATION: Stop cefepime, continue vancomycin, goal trough 15 to 20 for her pneumonia. At this point, I do not recommend adding prednisone given the complication of her prosthetic knee infection, as well as meta-analysis suggest benefit in critically ill patients, which though she is in the ICU, at this point is not critically ill. She will eventually need washout of the knee when her respiratory status is stable and she can tolerate anesthesia. HISTORY OF PRESENT ILLNESS: This is an 81-year-old woman with a prosthetic right knee, admitted with right knee pain, change in mental status. She came to the hospital August 09, she cannot provide, most of the history was obtained instead from discussion with Dr. Medellin, Dr. Wynn, and review of the medical record. She had had a few days of worsening right knee pain which is worse with weightbearing with some redness and swelling in the leg. She came to the hospital on the . White blood cell count was 10,000. Chest x- ray showed right upper lobe infiltrate, started on vancomycin and cefepime. She was febrile and tachycardic on admission. Chest CT on the confirmed right upper lobe infiltrate, which has progressed somewhat on today's x-ray. Seen by Dr. Wynn last night who aspirated the right knee, got some cloudy fluid with findings as above. The culture is pending. Per Dr. Medellin, the redness and swelling on the knee has improved over the last 48 hours. The patient denies knee pain at this point and has left prosthetic knee as well which has not been bothering her. No other prosthetic material present that she knows of. PAST MEDICAL HISTORY: 1. Status post bilateral knee arthroplasties. 2. Status post multiple abdominal surgeries with ventral hernia. 3. Hypothyroidism. 4. Chronic kidney disease, stage 2. 5. Status post appendectomy and status post colectomy. 6. Asthma. 7. Hypertension. 8. Vertigo. MEDICATIONS: 1. Cefepime 2 g every 12 hours. 2. Cetirizine. 3. Dicyclomine. 4. Fluticasone nasal spray. 5. Levothyroxine. 6. Meclizine. 7. Methocarbamol. 8. Advair inhaler. 9. Singulair. 10. Potassium. 11. Senna. 12. Sertraline. 13. Vancomycin 1 g every 12 hours. 14. Guaifenesin. ALLERGIES: CIPROFLOXACIN, ERYTHROMYCIN, PENICILLIN, IODINE. FAMILY HISTORY: No recurrent infections. SOCIAL HISTORY: No travel or sick contacts. REVIEW OF SYSTEMS: All negative except as noted above. PHYSICAL EXAM: Vital Signs: Temperature is 37.7, heart rate 98, respiratory rate 20, blood pressure 120/50, O2 sat 94% on 2 L. In general, she is awake, in no acute distress. She is not diaphoretic. Neurologically, she is oriented x2, follows all commands, moves all extremities. Strength is 5/5 in quadriceps , tibialis anterior, and gastrocnemius bilaterally. There is no lower extremity clonus. 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 There is no pronator drift. HEENT: There is no conjunctival hemorrhage. Oropharynx is without lesions. Neck is supple without nuchal rigidity. Lymph Nodes: There is no cervical, supraclavicular, inguinal, axillary, or epitrochlear lymphadenopathy. Heart has regular rate and rhythm without murmurs , rubs, or gallops. Lungs have decreased breath sounds at the bases bilaterally. There is no wheeze or rhonchi. Abdomen is soft, mildly distended, nontender. There is midline incision which is healed. There is an eschar in the incision without surrounding erythema or purulent drainage. Musculoskeletal : There is no spine tenderness to palpation. There is right iliac crest tenderness to palpation. There is no SI joint tenderness bilaterally. There is no log roll bilaterally. In the right knee, there is small effusion with warmth. It is nontender. There is warmth extending into the right lower leg with trace erythema. In the left knee, there is a well- healed incision without effusion or tenderness. LABORATORY DATA: White blood cell count 21,000, hemoglobin 9, platelets 326. The creatinine is 0.75. Procalcitonin is 5.5. CRP is 373. Blood cultures from the 1st are negative x4. Please see impressions and recommendations as outlined above, which I have discussed with Dr. Medellin. [id number]/[facility] #: [id number] FUNMILAYO
[2016-08-12] MEDS: Potassium & Sodium Phos 250MG* = 1 PACKET PO SCH ×2 (14:38→20:46)
[2016-08-12] MEDS: Albuterol/Ipratropium NEB.SOL* Albuterol 2.5 MG/Ipratropium 0.5 MG 3 ML INH SCH ×3 (15:18→23:24)
[2016-08-12] MEDS: Cetirizine* 10 MG TAB PO SCH (20:49)
[2016-08-13] MEDS: Albuterol/Ipratropium NEB.SOL* Albuterol 2.5 MG/Ipratropium 0.5 MG 3 ML INH SCH ×6 (03:19→23:04)
[2016-08-13] MEDS ORDERED: NS 0.9% 250 ML* 250 ML ONE (04:59)
[2016-08-13 05:03] LABS: Hematocrit 28 % (35-47); Mean Corpuscular HGB Conc 33 g/dl (31-36); Mean Corpuscular Hemoglobin 28 pg (27-31); Mean Corpuscular Volume 87 fL (80-97); Mean Platelet Volume 8 um3 (7.4-10.4); Red Blood Count 3.21 10^6/ul (4.0-5.4); Red Cell Distribution Width 15 % (10.5-15); White Blood Count 25.3 10^3/ul (3.5-10.8)
[2016-08-13] MEDS: oxyCODONE TAB* 5 MG TAB PO PRN ×2 (05:04→11:22)
[2016-08-13] MEDS: Vancomycin(*) 1,000 MG in NS 0.9% 250 ML* 250 ML IVPB SCH ×2 (05:10→16:03)
[2016-08-13] MEDS: Heparin VIAL(*) 5000 UNITS/ML VIAL (FIVE THOUSAND) SUBCUT SCH ×3 (05:16→22:42)
[2016-08-13 05:19] LABS: Albumin 2.3 g/dL (3.2-5.2); BUN/Creatinine Ratio 18.5 (8-20); C Reactive Protein 315.12 mg/L (< 5.00); Calcium 8.2 mg/dL (8.6-10.3); EGFR African American 112.2 (>60); EGFR Non-African American 87.3 (>60); Potassium 4.4 mmol/L (3.5-5.0); Total Bilirubin 0.9 mg/dL (0.2-1.0); Total Protein 5.3 g/dL (6.4-8.9)
[2016-08-13] MEDS: Cefepime(*) 2 GM in NS 0.9% 50 ML* 50 ML IVPB SCH (07:56)
[2016-08-13] MEDS: Mometasone/Formoter 200/5 MDI INH SCH ×2 (08:01→19:08)
[2016-08-13] MEDS: guaiFENesin LIQ* 100 MG/5 ML UDC PO SCH ×4 (09:33→22:40)
[2016-08-13] MEDS: Potassium & Sodium Phos 250MG* = 1 PACKET PO SCH ×3 (09:33→22:38)
[2016-08-13] MEDS: Dicyclomine CAP* 10 MG PO SCH ×3 (09:33→22:38)
[2016-08-13] MEDS: oxyCODONE SR TAB(*) 40 MG TAB.SR PO SCH ×2 (09:34→22:39)
[2016-08-13] MEDS: Sertraline* 50 MG TAB PO SCH ×2 (09:34→22:44)
[2016-08-13] MEDS: Montelukast Sodium TAB* 10 MG PO SCH (09:35)
[2016-08-13] MEDS: Magnesium Oxide TAB* 400 MG PO SCH (09:35)
[2016-08-13] MEDS: Docusate CAP* 100 MG PO SCH ×2 (09:35→22:40)
[2016-08-13] MEDS: Potassium Chlor TAB* 20 MEQ TAB.ER PO SCH ×4 (09:35→22:40)
[2016-08-13] MEDS: Senna TAB PO SCH ×2 (09:37→22:38)
[2016-08-13] MEDS: Levothyroxine TAB* 100 MCG TAB PO SCH (09:38)
[2016-08-13] MEDS: Fluticasone NASAL SPRAY 50MCG* 16 gm SPRAY BTL BOTH NARES SCH (09:42)
--- NOTE | 2016-08-13 11:01 | PN ---
Progress Note - Progress Note SOAP: Subjective: DOS:08/13/16 CC: pneumonia HPI: 81 year old woman admitted with right knee pain that was worse with walking had been that way a few days, nothing helped. Found to have hypoxia, cough, right sided infiltrate and right knee infection. No fever, rash, or diarrhea. Objective: [] Vital Signs Temp 37.1 C 08/13/16 03:26 Pulse 104 08/13/16 10:00 Resp 19 08/13/16 10:00 BP 121/54 08/13/16 10:00 Pulse Ox 93 08/13/16 10:00 Intake & Output 08/12/16 08/13/16 08/13/16 18:59 06:59 18:59 Intake Total 174 415 320 Output Total 0 Balance 174 415 320 Weight 181 lb 7.047 oz Intake: IV Fluids 174 15 ABX - VANCOMYCIN 15 NS (0.9%) 174 Oral 400 320 Output: Urine 0 Gen:Awake, NAD Neuro: answers questions, moves all extremities, occasional mycolonus upper and lower extremities BL HEENT:MMD, no thrush Heart:RRR no murmur Lungs: no wheeze, decreased BS Right upper lung field Abd:+BS NTND soft Skin: no rash MSK: right knee mild edema and warmth, non tender Laboratory Results - last 24 hr 08/12/16 08/13/16 08/13/16 05:10 04:47 04:47 WBC 25.3 H RBC 3.21 L RBC (Retic) 3.22 L Hgb 9.0 L Hct 28 L HCT (Retic) 28 L MCV 87 MCH 28 MCHC 33 RDW 15 Plt Count 400 MPV 8 Retic Count, Calc 0.9 Corrected Retic Count 0.6 Retic Shift Factor 2.0 Retic Production Index 0.30 Immature Retic Fraction 0.40 Mean Retic Volume 97.5 Sodium 128 L Potassium 4.4 Chloride 98 L Carbon Dioxide 23 Anion Gap 7 BUN 12 Creatinine 0.65 Est GFR ( Amer) 112.2 Est GFR (Non-Af Amer) 87.3 BUN/Creatinine Ratio 18.5 Glucose 110 H Calcium 8.2 L Total Bilirubin 0.90 AST 29 ALT 12 Alkaline Phosphatase 130 H C-Reactive Protein 315.12 H Total Protein 5.3 L Albumin 2.3 L Globulin 3.0 Albumin/Globulin Ratio 0.8 L Blood Type Antibody Screen 08/13/16 04:47 WBC RBC RBC (Retic) Hgb Hct HCT (Retic) MCV MCH MCHC RDW Plt Count MPV Retic Count, Calc Corrected Retic Count Retic Shift Factor Retic Production Index Immature Retic Fraction Mean Retic Volume Sodium Potassium Chloride Carbon Dioxide Anion Gap BUN Creatinine Est GFR ( Amer) Est GFR (Non-Af Amer) BUN/Creatinine Ratio Glucose Calcium Total Bilirubin AST ALT Alkaline Phosphatase C-Reactive Protein Total Protein Albumin Globulin Albumin/Globulin Ratio Blood Type B Positive Antibody Screen Negative Assessment: 1. MRSA pneumonia with acute hypoxemic respiratory failure 2. Infected right prosthetic knee; culture negative, suspect MRSA or Coag neg Staph 3. myoclonus ?cefepime toxicity which can persist 2-3 days vs other toxic/ metabolic, no signs or symptoms of meningitis and CT brain no abscess 4. CKD, stage 2 Plan: 1. continue vancomycin goal trough 15-20, holding on knee I&D pending improvement in respiratory status Discussed with Dr Medellin
[2016-08-13] MEDS: Cetirizine* 10 MG TAB PO SCH (22:40)
[2016-08-14] MEDS: Albuterol/Ipratropium NEB.SOL* Albuterol 2.5 MG/Ipratropium 0.5 MG 3 ML INH SCH ×4 (03:13→19:36)
[2016-08-14] MEDS ORDERED: NS 0.9% 250 ML* 250 ML ONE (05:33)
[2016-08-14] MEDS: Heparin VIAL(*) 5000 UNITS/ML VIAL (FIVE THOUSAND) SUBCUT SCH ×3 (05:45→21:49)
[2016-08-14] MEDS: Vancomycin(*) 1,000 MG in NS 0.9% 250 ML* 250 ML IVPB SCH ×2 (05:45→16:07)
[2016-08-14 06:48] LABS: Hematocrit 27 % (35-47); Hemoglobin 8.5 g/dl (12.0-16.0); Mean Corpuscular HGB Conc 32 g/dl (31-36); Mean Corpuscular Hemoglobin 28 pg (27-31); Mean Corpuscular Volume 88 fL (80-97); Mean Platelet Volume 7 um3 (7.4-10.4); Red Blood Count 3.03 10^6/ul (4.0-5.4); Red Cell Distribution Width 15 % (10.5-15); White Blood Count 24.1 10^3/ul (3.5-10.8)
[2016-08-14] MEDS: Mometasone/Formoter 200/5 MDI INH SCH ×2 (07:14→19:43)
[2016-08-14 07:27] LABS: Albumin 2.4 g/dL (3.2-5.2); BUN/Creatinine Ratio 22.7 (8-20); C Reactive Protein 296.19 mg/L (< 5.00); Calcium 8.6 mg/dL (8.6-10.3); EGFR African American 110.3 (>60); EGFR Non-African American 85.7 (>60); Globulin 3.9 g/dL (2-4); Magnesium 1.6 mg/dL (1.9-2.7); Phosphorus 2.7 mg/dL (2.5-5.0); Potassium 4.5 mmol/L (3.5-5.0); Total Bilirubin 0.9 mg/dL (0.2-1.0); Total Protein 6.3 g/dL (6.4-8.9)
--- NOTE | 2016-08-14 07:34 | RAD ---
INDICATION: Follow-up right upper lobe pneumonia COMPARISON: Most recent chest x-ray dated August 12, 2006, prior to that August 09, 2016 TECHNIQUE: Single AP portable view of the chest was obtained. FINDINGS: Image quality is compromised due to the relative inferiority of a portable chest x-ray. Again seen is a large lateral right upper lobe density measuring up to 8.8 cm in greatest dimension. This appears slightly larger than the 2 previous chest x-rays when it measured approximately 8 cm. There is improved aeration of the remaining right upper lobe relative to the previous chest x-ray. The left lung remains clear. IMPRESSION: Persistence of lateral right upper lobe density appearing slightly larger when compared to the 2 most recent chest x-rays.
[2016-08-14] MEDS: guaiFENesin LIQ* 100 MG/5 ML UDC PO SCH ×4 (09:28→21:47)
[2016-08-14] MEDS: oxyCODONE SR TAB(*) 40 MG TAB.SR PO SCH ×2 (09:29→21:48)
[2016-08-14] MEDS: Dicyclomine CAP* 10 MG PO SCH ×3 (09:29→21:48)
[2016-08-14] MEDS: Levothyroxine TAB* 100 MCG TAB PO SCH (09:29)
[2016-08-14] MEDS: Methocarbamol TAB* 500 MG PO PRN (09:29)
[2016-08-14] MEDS: Senna TAB PO SCH ×2 (09:29→21:48)
[2016-08-14] MEDS: Sertraline* 50 MG TAB PO SCH ×2 (09:29→21:48)
[2016-08-14] MEDS: Potassium Chlor TAB* 20 MEQ TAB.ER PO SCH ×4 (09:29→22:00)
[2016-08-14] MEDS: Docusate CAP* 100 MG PO SCH ×2 (09:29→21:48)
[2016-08-14] MEDS: Montelukast Sodium TAB* 10 MG PO SCH (09:30)
[2016-08-14] MEDS: Fluticasone NASAL SPRAY 50MCG* 16 gm SPRAY BTL BOTH NARES SCH (09:30)
[2016-08-14] MEDS: Potassium & Sodium Phos 250MG* = 1 PACKET PO SCH ×3 (09:30→21:49)
[2016-08-14] MEDS: Magnesium Oxide TAB* 400 MG PO SCH (09:30)
[2016-08-14] MEDS: Magnesium Sulfate 2 GM IV IVPB SCH ×2 (11:16→18:06)
[2016-08-14] MEDS: oxyCODONE TAB* 5 MG TAB PO PRN (16:51)
[2016-08-14] MEDS: Cetirizine* 10 MG TAB PO SCH (21:48)
[2016-08-15] MEDS: Albuterol/Ipratropium NEB.SOL* Albuterol 2.5 MG/Ipratropium 0.5 MG 3 ML INH SCH ×4 (00:45→20:36)
[2016-08-15] MEDS: Vancomycin(*) 1,000 MG in NS 0.9% 250 ML* 250 ML IVPB SCH ×2 (03:30→16:30)
[2016-08-15] MEDS: oxyCODONE TAB* 5 MG TAB PO PRN (05:54)
[2016-08-15] MEDS: Heparin VIAL(*) 5000 UNITS/ML VIAL (FIVE THOUSAND) SUBCUT SCH ×3 (05:56→22:34)
[2016-08-15 06:21] LABS: Hematocrit 26 % (35-47); Hemoglobin 8.3 g/dl (12.0-16.0); Mean Corpuscular HGB Conc 32 g/dl (31-36); Mean Corpuscular Hemoglobin 28 pg (27-31); Mean Corpuscular Volume 87 fL (80-97); Mean Platelet Volume 7 um3 (7.4-10.4); Red Blood Count 2.96 10^6/ul (4.0-5.4); Red Cell Distribution Width 15 % (10.5-15)
[2016-08-15 06:35] LABS: BUN/Creatinine Ratio 22.8 (8-20); C Reactive Protein 270.89 mg/L (< 5.00); Calcium 8.6 mg/dL (8.6-10.3); EGFR African American 130.6 (>60); EGFR Non-African American 101.5 (>60); Potassium 4.9 mmol/L (3.5-5.0)
[2016-08-15] MEDS: Mometasone/Formoter 200/5 MDI INH SCH ×2 (07:21→20:46)
[2016-08-15] MEDS: Levothyroxine TAB* 100 MCG TAB PO SCH (08:24)
[2016-08-15] MEDS: Potassium Chlor TAB* 20 MEQ TAB.ER PO SCH ×4 (08:24→20:32)
[2016-08-15] MEDS: Potassium & Sodium Phos 250MG* = 1 PACKET PO SCH ×4 (08:24→20:45)
[2016-08-15] MEDS: Montelukast Sodium TAB* 10 MG PO SCH (08:25)
[2016-08-15] MEDS: Sertraline* 50 MG TAB PO SCH ×2 (08:25→20:32)
[2016-08-15] MEDS: Docusate CAP* 100 MG PO SCH ×2 (08:25→20:31)
[2016-08-15] MEDS: oxyCODONE SR TAB(*) 40 MG TAB.SR PO SCH ×2 (08:25→20:30)
[2016-08-15] MEDS: Magnesium Oxide TAB* 400 MG PO SCH (08:25)
[2016-08-15] MEDS: Senna TAB PO SCH ×2 (08:26→20:37)
[2016-08-15] MEDS: guaiFENesin LIQ* 100 MG/5 ML UDC PO SCH ×4 (08:26→20:28)
[2016-08-15] MEDS: Fluticasone NASAL SPRAY 50MCG* 16 gm SPRAY BTL BOTH NARES SCH (08:27)
[2016-08-15] MEDS: Dicyclomine CAP* 10 MG PO SCH ×4 (11:52→20:35)
[2016-08-15] MEDS: Cetirizine* 10 MG TAB PO SCH (20:32)
[2016-08-16] MEDS: Albuterol/Ipratropium NEB.SOL* Albuterol 2.5 MG/Ipratropium 0.5 MG 3 ML INH SCH ×4 (01:04→20:31)
[2016-08-16] MEDS: Vancomycin(*) 1,000 MG in NS 0.9% 250 ML* 250 ML IVPB SCH ×2 (04:04→17:09)
[2016-08-16] MEDS: Heparin VIAL(*) 5000 UNITS/ML VIAL (FIVE THOUSAND) SUBCUT SCH ×3 (05:37→21:22)
[2016-08-16 05:51] LABS: Hematocrit 25 % (35-47); Hemoglobin 8.4 g/dl (12.0-16.0); Mean Corpuscular HGB Conc 33 g/dl (31-36); Mean Corpuscular Hemoglobin 29 pg (27-31); Mean Corpuscular Volume 87 fL (80-97); Mean Platelet Volume 7 um3 (7.4-10.4); Red Blood Count 2.91 10^6/ul (4.0-5.4); Red Cell Distribution Width 15 % (10.5-15); White Blood Count 16.4 10^3/ul (3.5-10.8)
[2016-08-16 06:02] LABS: Comments Flag Yes
[2016-08-16 06:03] LABS: Add Diff/Slide Review? Slide Review Added
[2016-08-16 06:05] LABS: BUN/Creatinine Ratio 22.4 (8-20); C Reactive Protein 255.18 mg/L (< 5.00); Calcium 8.4 mg/dL (8.6-10.3); EGFR Non-African American 99.5 (>60); Potassium 4.9 mmol/L (3.5-5.0)
[2016-08-16 06:56] LABS: Eosinophils % 2 % (0-6); Immature Granulocytes 3 % (0-9); Myelocytes % 1 % (0-1); Neutrophil % 71 % (38-83); RBC Morphology Normal (Normal)
[2016-08-16] MEDS: Dicyclomine CAP* 10 MG PO SCH ×3 (07:41→20:21)
[2016-08-16] MEDS: Montelukast Sodium TAB* 10 MG PO SCH (07:47)
[2016-08-16] MEDS: Senna TAB PO SCH ×2 (07:47→21:03)
[2016-08-16] MEDS: Levothyroxine TAB* 100 MCG TAB PO SCH (07:48)
[2016-08-16] MEDS: Sertraline* 50 MG TAB PO SCH ×2 (07:48→21:03)
[2016-08-16] MEDS: oxyCODONE SR TAB(*) 40 MG TAB.SR PO SCH ×2 (07:48→21:03)
[2016-08-16] MEDS: Ondansetron ODT TAB* 4 MG PO PRN (07:48)
[2016-08-16] MEDS: Potassium & Sodium Phos 250MG* = 1 PACKET PO SCH ×3 (07:49→21:04)
[2016-08-16] MEDS: Potassium Chlor TAB* 20 MEQ TAB.ER PO SCH ×4 (07:49→21:03)
[2016-08-16] MEDS: Docusate CAP* 100 MG PO SCH ×2 (07:49→21:03)
[2016-08-16] MEDS: Magnesium Oxide TAB* 400 MG PO SCH (07:49)
[2016-08-16] MEDS: guaiFENesin LIQ* 100 MG/5 ML UDC PO SCH ×4 (07:50→21:03)
[2016-08-16] MEDS: Fluticasone NASAL SPRAY 50MCG* 16 gm SPRAY BTL BOTH NARES SCH (07:51)
[2016-08-16] MEDS: Mometasone/Formoter 200/5 MDI INH SCH ×2 (07:51→20:38)
--- NOTE | 2016-08-16 09:19 | PN ---
Progress Note - Progress Note SOAP: Subjective: [Pt reports minimal pain R knee at rest. Denies calf pain, dizziness, nausea.] Objective: [Mildly confused but alert. NAD. Afebrile R knee with mild erythema anteriorly, Mild TTP. Mild effusion. Able to flex knee to approx 80 degrees with some increase in pain. Calves soft, NT, Distal NV function intact. Vital Signs: Temp Pulse Resp BP Pulse Ox 98.0 F 96 20 143/62 97 08/16/16 07:28 08/16/16 07:28 08/16/16 07:48 08/16/16 07:28 08/16/16 07:28 Laboratory Results - last 24 hr 08/16/16 08/16/16 05:42 05:42 WBC 16.4 H RBC 2.91 L Hgb 8.4 L Hct 25 L MCV 87 MCH 29 MCHC 33 RDW 15 Plt Count 579 H D MPV 7 L Immature Gran % (Auto) 3 Neut % (Auto) 78.8 Lymph % (Auto) 11.2 L [place] % (Auto) 7.4 Eos % (Auto) 2.2 Baso % (Auto) 0.4 Absolute Neuts (auto) 12.9 H Absolute Lymphs (auto) 1.8 Absolute Monos (auto) 1.2 H Absolute Eos (auto) 0.4 Absolute Basos (auto) 0.1 Absolute Nucleated RBC 0 Neutrophils % 71 Band Neutrophils % 2 Lymphocytes % 18 L Monocytes % 6 Eosinophils % 2 Myelocytes % 1 Nucleated RBC % 0 Normal RBC Morphology Normal Sodium 132 L Potassium 4.9 Chloride 96 L Carbon Dioxide 29 Anion Gap 7 BUN 13 Creatinine 0.58 Est GFR ( Amer) 128.0 Est GFR (Non-Af Amer) 99.5 BUN/Creatinine Ratio 22.4 H Glucose 88 Calcium 8.4 L C-Reactive Protein 255.18 H ] Assessment: [81 yo female with pneumonia, s/p R TKA with R knee erythema, questionable infection Hospital day # 7] Plan: [Con't abx per ID] Awaiting improvement in respiratory status Con't to monitor knee for need of any surgical intervention
--- NOTE | 2016-08-16 10:14 | PN ---
Subjective - Subjective Reason for Note: Progress Note History: She continues to have a productive cough. She denies hemoptysis, chest pain, dyspnea at rest. Her main complaint is 8/10 lower back pain that includes sacral and coccyx. She would like some relief. Her right knee is swollen, but not especially painful. She is having no indigestion, diarrhea. 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 Right knee pain (Acute) M25.561 Right upper lobe pneumonia (Acute) J18.1 Severe low back pain (Acute) M54.5 Status post right knee replacement (Acute) Z96.651 Asthma (Chronic) J45.909 continue home pulmonary meds CKD (chronic kidney disease) (Chronic) N18.9 DVT prophylaxis (Chronic 08/23/14) [id number] lovenox HTN (hypertension) (Chronic) I10 History of pulmonary embolism (Chronic) Z86.711 Hypothyroidism (Chronic) E03.9 cont Synthroid Scoliosis deformity of spine (Chronic) M41.9 Spinal stenosis (Chronic) M48.00 Current Medications: Current Medications Acetaminophen (Tylenol Tab*) 650 mg PO Q4H PRN PRN Reason: FEVER/PAIN Last Admin: 08/11/16 16:22 Dose: 650 mg Albuterol (Ventolin Hfa Inhaler*) 2 puff INH Q4H PRN PRN Reason: WHEEZING/SHORTNESS OF BREATH Albuterol/Ipratropium (Duoneb Neb.Becca*) 1 neb INH RT.[id number] AWAKE [facility] Last Admin: 08/16/16 07:51 Dose: 1 neb Cetirizine HCl (Zyrtec*) 10 mg PO BEDTIME [facility] Last Admin: 08/15/16 20:32 Dose: 10 mg Dicyclomine HCl (Bentyl Cap*) 10 mg PO 0730,1230,1930 [facility] Last Admin: 08/16/16 07:41 Dose: 10 mg Docusate Sodium (Colace Cap*) 100 mg PO BID [facility] Last Admin: 08/16/16 07:49 Dose: 100 mg Fluticasone Propionate (Flonase Nasal [place] 50mcg*) 2 spray BOTH NARES DAILY [facility] Last Admin: 08/16/16 07:51 Dose: 2 spray Guaifenesin (Robitussin*) 10 ml PO QID [facility] Last Admin: 08/16/16 07:50 Dose: 10 ml Heparin Sodium (Porcine) (Heparin Vial(*)) 5,000 units SUBCUT Q8HR [facility] Last Admin: 08/16/16 05:37 Dose: 5,000 units Heparin Sodium (Porcine) (Heparin Flush Picc/Ml/Cvc(*)) 0 ml IV FLUSH 0600, 1800 [facility] PRN Reason: Protocol Last Admin: 08/16/16 06:00 Dose: 2 ml Vancomycin HCl 1,000 mg/ (Sodium Chloride) 250 mls @ 166.667 mls/hr IVPB Q12H [facility] Last Admin: 08/16/16 04:04 Dose: 166.667 mls/hr Levothyroxine Sodium (Synthroid Tab*) 100 mcg PO 0800 [facility] Last Admin: 08/16/16 07:48 Dose: 100 mcg Magnesium Oxide (Magox 400 Tab*) 400 mg PO DAILY [facility] Last Admin: 08/16/16 07:49 Dose: 400 mg Meclizine HCl (Antivert Tab*) 25 mg PO QID PRN PRN Reason: DIZZINESS Methocarbamol (Robaxin Tab*) 500 mg PO Q6H PRN PRN Reason: SPASMS - MUSCLE Last Admin: 08/14/16 09:29 Dose: 500 mg Mometasone Furoate/Formoterol Fumar (Dulera 200/5 Mdi*) 2 puff INH BID [facility] Last Admin: 08/16/16 07:51 Dose: 2 puff Montelukast Sodium (Singulair Tab*) 10 mg PO DAILY [facility] Last Admin: 08/16/16 07:47 Dose: 10 mg Morphine Sulfate (Morphine Inj (Syringe)*) 2 mg IV Q2H PRN PRN Reason: PAIN -UNRELIEVED BY OXYCODONE Last Admin: 08/10/16 10:54 Dose: 2 mg Ondansetron HCl (Zofran Odt Tab*) 8 mg PO Q8H PRN PRN Reason: NAUSEA Last Admin: 08/16/16 07:48 Dose: 8 mg Oxycodone HCl (Oxycontin(*)) 40 mg PO Q12HR [facility] Last Admin: 08/16/16 07:48 Dose: 40 mg Oxycodone HCl (Roxycodone Tab*) 10 mg PO Q4H PRN PRN Reason: PAIN Last Admin: 08/15/16 05:54 Dose: 10 mg Pharmacy Consult (Vancomycin Per Pharmacy*) 1 note FOLLOW UP .VANC PER PHARMACY [facility] Pharmacy Profile Note (Vancomycin Trough Check) 1 note FOLLOW UP 1530 ONE Stop: 08/16/16 15:31 Potassium Chloride (Klor Con Er Tab*) 20 meq PO QID [facility] Last Admin: 08/16/16 07:49 Dose: 20 meq Potassium Phos/Sodium Phos (Neutra Phos 250 Mg Manuel*) 250 mg PO TID [facility] Last Admin: 08/16/16 07:49 Dose: Not Given Senna (Senokot Tab*) 2 tab PO BEDTIME [facility] Last Admin: 08/15/16 20:37 Dose: Not Given Senna (Senokot Tab*) 3 tab PO DAILY [facility] Last Admin: 08/16/16 07:47 Dose: 3 tab Sertraline HCl (Zoloft*) 50 mg PO BID [facility] Last Admin: 08/16/16 07:48 Dose: 50 mg Home Medications: Home Medications Medication Instructions Recorded Confirmed Type Montelukast Sodium TAB* [Singulair 10 mg PO DAILY 05/09/12 08/09/16 History 5 mg TAB*] Apple Cider Vinegar 600 mg PO DAILY 03/19/14 08/09/16 History Dicyclomine CAP* [Bentyl CAP*] 10 mg PO QID 03/19/14 08/09/16 History Estropipate(NF) [Ogen(NF)] 0.75 mg PO QAM 03/19/14 08/09/16 History Fluticasone NASAL * [Flonase *] 2 spray BOTH NARES DAILY 03/19/14 08/09/16 History [id number]-HOS-Ukb C-Manganes 1 tab PO DAILY 03/19/14 08/09/16 History [Glucosamine MSM Complex] Levothyroxine TAB* [Synthroid 100 100 mcg PO 0800 03/19/14 08/09/16 History MCG TAB*] Magnesium Gluconate [Mag-G] 500 mg PO DAILY 03/19/14 08/09/16 History Ondansetron [Zofran Odt] 8 mg SL Q6H PRN 03/19/14 08/09/16 History oxyCODONE TAB* [Roxycodone TAB 5 5 - 10 mg PO Q6H PRN MDD 40 mg 03/19/14 History mg*] Docusate CAP* [Colace Cap*] 100 mg PO BID 08/22/14 08/09/16 History Meclizine TAB* [Antivert 12.5 TAB*] 25 mg PO QID PRN 01/16/16 08/09/16 History Methocarbamol TAB* [Robaxin TAB*] 500 mg PO Q6H PRN 01/16/16 08/09/16 History Mometasone/Formoter 200/5 MDI* 2 puff INH BID 01/16/16 08/09/16 History [Dulera 200/5 MDI*] Multivitamins/Minerals TAB* 1 tab PO DAILY 01/16/16 08/09/16 History [Theragran/minerals TAB*] Potassium Chlor TAB* [Potassium 20 meq PO QID 01/16/16 08/09/16 History Chlor TAB 20 MEQ*] Senna TAB* [Senokot TAB*] 1 tab PO DAILY 01/16/16 08/09/16 History Sertraline* [Zoloft*] 150 mg PO BID 01/16/16 08/09/16 History Triamterene/HCTZ 37.5-25 MG* 1 cap PO DAILY 01/16/16 08/09/16 History [Dyazide CAP*] oxyCODONE SR TAB(*) [Oxycontin 40 40 mg PO Q12HR 01/16/16 08/09/16 History mg (*)] Allergies: Allergies Allergy/AdvReac Type Severity Reaction Status Date / Time Adhesive Tape Allergy Rash Verified 03/09/16 09:51 Ciprofloxacin [From Cipro] AdvReac Vomiting Verified 03/09/16 09:51 Erythromycin AdvReac Vomiting Verified 03/09/16 09:51 Iodine AdvReac Anaphylatic Verified 03/09/16 09:51 Shock Penicillins AdvReac Hives/Diff. Verified 03/09/16 09:51 Breathing/I tching Sulfa Drugs AdvReac Nausea Verified 03/09/16 09:51 Tetracycline AdvReac Nausea Verified 03/09/16 09:51 Objective - Vital Signs Vital Signs: Vital Signs 08/15/16 08/15/16 08/15/16 12:15 13:08 15:32 Temperature 98.1 F 98.1 F Pulse Rate 95 78 95 Respiratory 16 18 16 Rate Blood Pressure 127/51 127/51 (mmHg) O2 Sat by Pulse 98 100 98 Oximetry 08/15/16 08/15/16 08/15/16 15:45 15:46 19:55 Temperature 97.8 F 98.9 F Pulse Rate 92 104 Respiratory 16 16 20 Rate Blood Pressure 141/60 155/56 (mmHg) O2 Sat by Pulse 99 96 Oximetry 08/15/16 08/15/16 08/15/16 20:00 20:30 20:35 Temperature Pulse Rate Respiratory 22 24 24 Rate Blood Pressure (mmHg) O2 Sat by Pulse 95 Oximetry 08/15/16 08/15/16 08/15/16 20:39 22:30 23:41 Temperature 98.0 F Pulse Rate 95 97 Respiratory 20 20 18 Rate Blood Pressure 117/42 (mmHg) O2 Sat by Pulse 95 95 Oximetry 08/16/16 08/16/16 08/16/16 03:49 04:19 07:28 Temperature 97.9 F 98.0 F Pulse Rate 102 99 96 Respiratory 18 20 19 Rate Blood Pressure 144/47 143/62 (mmHg) O2 Sat by Pulse 96 95 97 Oximetry 08/16/16 08/16/16 08/16/16 07:41 07:48 08:00 Temperature Pulse Rate Respiratory 20 20 20 Rate Blood Pressure (mmHg) O2 Sat by Pulse 97 Oximetry - Intake and Output Intake and Output: Intake & Output 08/13/16 08/14/16 08/15/16 08/16/16 11:59 11:59 11:59 11:59 Intake Total 909 1663.5 1403 710 Output Total 802 608 4026 800 Balance 359 1013.5 403 -90 Weight 181 lb 7.047 oz 182 lb 5.156 oz 186 lb 8.177 oz Intake: IV Fluids 189 706.5 1073 ABX - VANCOMYCIN 15 270 NS (0.9%) 174 436.5 1073 IVPB 285 ABX - VANCOMYCIN 285 Oral 720 720 330 425 Tube Feeding 237 Output: Urine 531 782 8320 800 Other: Estimated Void Medium Small Large Large Date of Last Bowel 08/16/16 Movement # Bowel Movements 1 Estimated Stool Amount Small # Voids 1 1 1 ADLs: Meal Record Start: 08/09/16 18: 47 Freq: DAILY@0900,1400,1800 Status: Complete Created 08/09/16 18:47 System (Rec: 08/09/16 18:47 System MED-M04) Document 08/10/16 09:00 [id number] (Rec: 08/10/16 09:37 [id number] MED-C11) Document 08/10/16 18:00 [id number] (Rec: 08/10/16 20:22 [id number] MED-C11) Document 08/11/16 09:00 [id number] (Rec: 08/11/16 10:40 [id number] MED-C09) Document 08/11/16 13:38 [id number] (Rec: 08/11/16 13:39 KVW1284 MED-C09) Document 08/11/16 18:00 [id number] (Rec: 08/11/16 21:44 [id number] MED-C09) ADLs: Meal Record Start: 08/12/16 00: 32 Freq: Status: Complete Created 08/12/16 00:32 [id number] (Rec: 08/12/16 00:32 [id number] ICU-C25) Document 08/13/16 10:48 [id number] (Rec: 08/13/16 10:48 [id number] ICU-C07) Document 08/13/16 18:15 [id number] (Rec: 08/13/16 18:16 [id number] ICU-C07) Document 08/13/16 18:28 [id number] (Rec: 08/13/16 18:28 [id number] ICU-C07) ADLs: Meal Record Start: 08/15/16 11: 02 Freq: DAILY@0900,1400,1800 Status: Inactive Created 08/15/16 11:02 [id number] (Rec: 08/15/16 11:02 [id number] ICU-C07) ADLs: Meal Record Start: 08/15/16 15: 28 Freq: Status: Active Created 08/15/16 15:28 [id number] (Rec: 08/15/16 15:28 [id number] SSU-M02) Document 08/15/16 17:44 [id number] (Rec: 08/15/16 17:45 GMP7614 SSU-C08) Intake and Output Start: 08/09/16 18: 47 Freq: DAILY@0600,1400,2200 Status: Complete Created 08/09/16 18:47 System (Rec: 08/09/16 18:47 System MED-M04) Document 08/09/16 22:00 [id number] (Rec: 08/09/16 22:15 [id number] MED-C09) Document 08/10/16 06:00 [id number] (Rec: 08/10/16 06:24 [id number] MEDL-C01) Document 08/10/16 09:09 QKE7095 (Rec: 08/10/16 09:09 [id number] MED-C11) Document 08/10/16 22:00 AUE3036 (Rec: 08/10/16 22:51 [id number] MED-C11) Document 08/11/16 06:00 [id number] (Rec: 08/11/16 06:11 INA3611 MEDL-C01) Document 08/11/16 11:19 [id number] (Rec: 08/11/16 11:19 DZN2316 MED-C09) Document 08/11/16 22:00 NXM1016 (Rec: 08/11/16 22:20 OZV2460 MED-C09) Intake and Output Start: 08/12/16 00: 32 Freq: 06,14,2200 Status: Complete Created 08/12/16 00:32 [id number] (Rec: 08/12/16 00:32 [id number] ICU-C25) Document 08/13/16 05:15 RZL5863 (Rec: 08/13/16 05:15 [id number] ICU-M20) Document 08/13/16 11:47 XQS1907 (Rec: 08/13/16 11:47 [id number] CMC-RDC2) Document 08/13/16 11:47 OKV8241 (Rec: 08/13/16 11:47 IAP0797 CMC-RDC2) Document 08/13/16 14:00 RSB1764 (Rec: 08/13/16 14:08 CAQ9397 ICU-M05) Document 08/13/16 22:00 [id number] (Rec: 08/13/16 23:00 [id number] ICU-C07) Document 08/14/16 03:00 GCA4901 (Rec: 08/14/16 06:45 TRS2946 ICU-C07) Document 08/14/16 06:00 XIH7317 (Rec: 08/14/16 06:45 VWF3746 ICU-C14) Document 08/14/16 09:12 HVO2753 (Rec: 08/14/16 09:12 ZMR6009 ICU-C20) Document 08/14/16 14:00 [id number] (Rec: 08/14/16 14:11 WNT5715 ICU-C20) Document 08/14/16 15:22 REY1993 (Rec: 08/14/16 15:22 ANA1635 ICU-C07) Document 08/14/16 17:00 [id number] (Rec: 08/14/16 18:18 WTI2774 ICU-C07) Document 08/14/16 22:00 NYB4359 (Rec: 08/14/16 22:23 UJQ9582 ICU-C15) Document 08/15/16 05:29 [id number] (Rec: 08/15/16 05:30 [id number] ICU-C07) Document 08/15/16 06:00 WTS2793 (Rec: 08/15/16 06:13 AAL3514 ICU-C16) Document 08/15/16 06:51 IRE2591 (Rec: 08/15/16 06:51 FBI7582 ICU-C07) Intake and Output Start: 08/15/16 11: 02 Freq: DAILY@0600,1400,2200 Status: Inactive Created 08/15/16 11:02 [id number] (Rec: 08/15/16 11:02 [id number] ICU-C07) Intake and Output Start: 08/15/16 15: 28 Freq: DAILY@0600,1400,2200 Status: Active Created 08/15/16 15:28 [id number] (Rec: 08/15/16 15:28 PBG4214 SSU-M02) Document 08/15/16 17:24 RRB4722 (Rec: 08/15/16 17:24 QRT6235 SSU-M10) Document 08/15/16 22:00 ECU9719 (Rec: 08/16/16 00:02 [id number] SSU-C03) Document 08/16/16 04:05 [id number] (Rec: 08/16/16 04:32 HBY2530 SSU-C19) Document 08/16/16 05:55 [id number] (Rec: 08/16/16 05:56 [id number] SSU-C19) - Physical Exam General Physical Exam Comment: Right knee is more swollen and warmer than left knee. She is distracted by her pain General: No Cyanosis, Yes Anemia, No Jaundice, No Lymphadenopathy, No Clubbing Skin: Normal: Rash Lungs and Chest: Yes: Chest Expansion Full, Chest Expansion Symetrica, Percussion Note Resonant, Crackles - right lung. No: Vessicular Breath Sounds - bronchial breathing right upper zone, Wheezes, Respiratory Distress, Use of Accessory Muscles Heart Rate and Rhythm: Regular JVP: Not Elevated Additional Cardiovascular: Yes: Normal Heart Sounds. No: Heart Murmur, Pedal Edema Abdominal Exam: Yes: Soft, Bowel Sounds Present. No: Distention, Abdominal Mass , Hepatomegaly, Abdominal Tenderness - Extremities Cranial Nerves II-XII Intact: Yes - Neuro Orientation: A/O x3 Speech: Normal Results - Results Lab Results: Laboratory Results - last 24 hr 08/16/16 08/16/16 05:42 05:42 WBC 16.4 H RBC 2.91 L Hgb 8.4 L Hct 25 L MCV 87 MCH 29 MCHC 33 RDW 15 Plt Count 579 H D MPV 7 L Immature Gran % (Auto) 3 Neut % (Auto) 78.8 Lymph % (Auto) 11.2 L [place] % (Auto) 7.4 Eos % (Auto) 2.2 Baso % (Auto) 0.4 Absolute Neuts (auto) 12.9 H Absolute Lymphs (auto) 1.8 Absolute Monos (auto) 1.2 H Absolute Eos (auto) 0.4 Absolute Basos (auto) 0.1 Absolute Nucleated RBC 0 Neutrophils % 71 Band Neutrophils % 2 Lymphocytes % 18 L Monocytes % 6 Eosinophils % 2 Myelocytes % 1 Nucleated RBC % 0 Normal RBC Morphology Normal Sodium 132 L Potassium 4.9 Chloride 96 L Carbon Dioxide 29 Anion Gap 7 BUN 13 Creatinine 0.58 Est GFR ( Amer) 128.0 Est GFR (Non-Af Amer) 99.5 BUN/Creatinine Ratio 22.4 H Glucose 88 Calcium 8.4 L C-Reactive Protein 255.18 H Assessment - Problem List Assessment: Patient Problems Infected prosthetic knee joint (Acute) Right knee pain (Acute) Right upper lobe pneumonia (Acute) Severe low back pain (Acute) Status post right knee replacement (Acute) Asthma (Chronic) CKD (chronic kidney disease) (Chronic) DVT prophylaxis (Chronic 08/23/14) HTN (hypertension) (Chronic) History of pulmonary embolism (Chronic) Hypothyroidism (Chronic) Scoliosis deformity of spine (Chronic) Spinal stenosis (Chronic) Pneumonia (Acute) Chronic low back pain (Chronic) Chronic pain (Chronic) Full code status (Chronic 08/23/14) Limping (Chronic) Numbness in feet (Chronic) Physical medicine and rehabilitation procedures (Chronic 08/23/14) Status post left knee replacement (Chronic 08/22/14) Plan: Right upper lobe pneumonia (Acute) Pneumonia (Acute)She has signs of this pneumonia and her CRP remains high - but WBC and neut% coming down suggesting a good choice of antibacterials. Continue current Rx Infected prosthetic knee joint (Acute) Right knee pain (Acute)Status post right knee replacement (Acute) This also requires IV antibacterials with current coverage (I read Dr. Kulkarni's consultation/follow up note)\ Severe low back pain (Acute) Spinal stenosis (Chronic)Scoliosis deformity of spine (Chronic) Chronic low back pain (Chronic) Chronic pain (Chronic) I wonder if she also has spinal osteomyelitis/disciitis. I will check a [employer] 3 phase bone scan. I will find out if there is a more comfortable bed for her Asthma (Chronic) She is not wheezing CKD (chronic kidney disease) (Chronic) Her renal function has recovered DVT prophylaxis (Chronic 08/23/14)History of pulmonary embolism (Chronic) ongoing treatment - highest risk given prior PE. Consider anticoagulation if she is going to have prolonged bedrest HTN (hypertension) (Chronic) stable Hypothyroidism (Chronic) secondary diagnosis Full code status (Chronic 08/23/14) Status post left knee replacement (Chronic 08/22/14) I discussed the above with the patient and she agrees with management plan.
[2016-08-16] MEDS: oxyCODONE TAB* 5 MG TAB PO PRN (13:49)
[2016-08-16] MEDS ORDERED: Vancomycin Trough Check NOTE FOLLOW UP ONE (15:30)
[2016-08-16] MEDS: Cetirizine* 10 MG TAB PO SCH (21:03)
[2016-08-17] MEDS: Albuterol/Ipratropium NEB.SOL* Albuterol 2.5 MG/Ipratropium 0.5 MG 3 ML INH SCH ×4 (02:15→19:22)
[2016-08-17] MEDS: Vancomycin(*) 1,000 MG in NS 0.9% 250 ML* 250 ML IVPB SCH ×2 (04:23→16:50)
[2016-08-17] MEDS: Levothyroxine TAB* 100 MCG TAB PO SCH (06:14)
[2016-08-17] MEDS: Ondansetron ODT TAB* 4 MG PO PRN ×2 (06:14→11:53)
[2016-08-17] MEDS: Heparin VIAL(*) 5000 UNITS/ML VIAL (FIVE THOUSAND) SUBCUT SCH ×3 (06:14→22:47)
[2016-08-17] MEDS: Acetaminophen TAB* 325 MG PO PRN ×2 (06:14→20:11)
[2016-08-17 06:57] LABS: Add Diff/Slide Review? Slide Review Added; Comments Flag Yes; Hematocrit 26 % (35-47); Hemoglobin 8.3 g/dl (12.0-16.0); Mean Corpuscular HGB Conc 33 g/dl (31-36); Mean Corpuscular Hemoglobin 28 pg (27-31); Mean Corpuscular Volume 88 fL (80-97); Mean Platelet Volume 7 um3 (7.4-10.4); Red Blood Count 2.93 10^6/ul (4.0-5.4); Red Cell Distribution Width 15 % (10.5-15)
[2016-08-17 07:29] LABS: C Reactive Protein 209.3 mg/L (< 5.00); Calcium 8.5 mg/dL (8.6-10.3); EGFR African American 118.5 (>60); EGFR Non-African American 92.2 (>60); Potassium 4.9 mmol/L (3.5-5.0)
[2016-08-17] MEDS: Mometasone/Formoter 200/5 MDI INH SCH ×2 (07:31→19:25)
[2016-08-17] MEDS: Dicyclomine CAP* 10 MG PO SCH ×3 (10:02→20:12)
[2016-08-17] MEDS: Potassium Chlor TAB* 20 MEQ TAB.ER PO SCH ×4 (10:02→21:37)
[2016-08-17] MEDS: Magnesium Oxide TAB* 400 MG PO SCH (10:02)
[2016-08-17] MEDS: Docusate CAP* 100 MG PO SCH ×2 (10:02→21:37)
[2016-08-17] MEDS: Senna TAB PO SCH ×2 (10:02→21:37)
[2016-08-17] MEDS: guaiFENesin LIQ* 100 MG/5 ML UDC PO SCH ×4 (10:29→21:37)
[2016-08-17] MEDS: Fluticasone NASAL SPRAY 50MCG* 16 gm SPRAY BTL BOTH NARES SCH (10:29)
[2016-08-17] MEDS: Potassium & Sodium Phos 250MG* = 1 PACKET PO SCH ×3 (10:29→21:37)
[2016-08-17] MEDS: Montelukast Sodium TAB* 10 MG PO SCH (10:29)
[2016-08-17] MEDS: Sertraline* 50 MG TAB PO SCH ×2 (10:30→21:37)
[2016-08-17] MEDS: oxyCODONE SR TAB(*) 40 MG TAB.SR PO SCH ×2 (10:36→22:46)
--- NOTE | 2016-08-17 10:37 | RAD ---
INDICATION: Pneumonia. COMPARISON: Comparison is made with a prior chest x-ray study from August 14 2016. TECHNIQUE: AP and lateral views of the chest were obtained. FINDINGS: The heart is within normal limits in size. Mediastinal contours appear normal. There is a PICC present entering on the right side. The catheter tip projects over the superior vena cava. There is a dense right upper lobe infiltrate which is unchanged significantly from the prior study. There is a linear density within the lingula suggestive of atelectasis. There is a trace right pleural effusion. IMPRESSION: DENSE RIGHT UPPER LOBE INFILTRATE AND TRACE RIGHT PLEURAL EFFUSION, UNCHANGED.
--- NOTE | 2016-08-17 11:44 | PN ---
Progress Note - Progress Note SOAP: Subjective: DOS:08/17/16 CC: pneumonia HPI: 81 year old woman admitted with right knee pain that was worse with walking had been that way a few days, nothing helped. Found to have hypoxia, cough, right sided infiltrate and right knee infection. No fever, rash, or diarrhea. Knee still some knee pain, though not as bad with weight bearing. Ongoing cough, now productive. Low back pain, hurts to move in bed. Pain medicine helps some. Objective: [] Vital Signs Temp 36.8 C 08/17/16 07:23 Pulse 75 08/17/16 07:29 Resp 16 08/17/16 10:36 BP 129/50 08/17/16 07:23 Pulse Ox 98 08/17/16 07:31 Intake & Output 08/16/16 08/17/16 08/17/16 18:59 06:59 18:59 Intake Total 220 440 292 Output Total 920 836 7350 Balance -398 -918 -443 Intake: IV Fluids 25 ABX - VANCOMYCIN 25 IVPB 267 ABX - VANCOMYCIN 267 Oral 220 440 0 Output: Urine 448 477 3180 Gen:Awake, NAD Neuro: answers questions, moves all extremities, occasional mycolonus upper and lower extremities BL HEENT:MMD, no thrush Heart:RRR no murmur Lungs: no wheeze, decreased BS and egophany Right upper lung field Abd:+BS NTND soft Skin: no rash MSK: right knee mild edema and warmth, non tender; L spine tender ABG pH 7.39 (7.35-7.45) 08/11/16 19:48 ABG HCO3 23.1 mmol/L (19-31) 08/11/16 19:48 Sodium 132 mmol/L (133-145) L 08/17/16 06:30 Potassium 4.9 mmol/L (3.5-5.0) 08/17/16 06:30 BUN 13 mg/dL (6-24) 08/17/16 06:30 Creatinine 0.62 mg/dL (0.51-0.95) 08/17/16 06:30 Calcium 8.5 mg/dL (8.6-10.3) L 08/17/16 06:30 Magnesium 2.0 mg/dL (1.9-2.7) 08/15/16 06:00 AST 27 U/L (13-39) 08/14/16 06:30 ALT 12 U/L (7-52) 08/14/16 06:30 Assessment: 1. MRSA pneumonia with acute hypoxemic respiratory failure 2. Infected right prosthetic knee; culture negative, suspect MRSA or Coag neg Staph 3. myoclonus, resolved 4. CKD, stage 2 5. low back pain, agree diffdx does include spine infection Plan: 1. continue vancomycin goal trough 15-20, day 8, tolerating it well 2. Bone scan pending 3. I&D of knee
--- NOTE | 2016-08-17 12:48 | RAD ---
INDICATION: Severe back pain. Pneumonia. Question septic arthritis. COMPARISON: January 11, 2015 CT abdomen pelvis. TECHNIQUE: 20.800 mCi of Tc-99m MDP were injected IV. Angiographic and blood pool images of the of the lumbar sacral spine and pelvis were obtained. Approximately 2 hours after injection, anterior and posterior whole body images and spot images of the lumbar sacral spine and pelvis were obtained. FINDINGS: Unremarkable anterior and posterior angiographic phase and blood pool images of the lumbar sacral spine and pelvis. Mild increased activity at the LEFT margin of the mid lumbar spine corresponds with advanced scoliosis and degenerative arthropathy on prior CT. Whole body images are remarkable for polyarticular increased activity including at the acromioclavicular joints, shoulders, and wrists consistent with presence of arthropathy. Mild increased activity at the margins of the bilateral prosthetic knees. The kidneys are normal in size and position and without evidence for obstructive uropathy. IMPRESSION: No evidence for lumbar sacral spine discitis - osteomyelitis or septic arthritis. CPT II: CPT II Codes: 3570F
[2016-08-17] MEDS: Ondansetron TAB* 4 MG PO PRN (19:14)
[2016-08-17] MEDS: oxyCODONE TAB* 5 MG TAB PO PRN (20:11)
[2016-08-17] MEDS: Cetirizine* 10 MG TAB PO SCH (21:37)
[2016-08-18] MEDS: Albuterol/Ipratropium NEB.SOL* Albuterol 2.5 MG/Ipratropium 0.5 MG 3 ML INH SCH ×4 (01:53→18:39)
[2016-08-18] MEDS: oxyCODONE TAB* 5 MG TAB PO PRN ×3 (03:22→20:57)
[2016-08-18] MEDS: Vancomycin(*) 1,000 MG in NS 0.9% 250 ML* 250 ML IVPB SCH ×2 (03:54→15:33)
[2016-08-18] MEDS: Heparin VIAL(*) 5000 UNITS/ML VIAL (FIVE THOUSAND) SUBCUT SCH ×3 (06:04→21:06)
[2016-08-18 06:44] LABS: Hematocrit 26 % (35-47); Hemoglobin 8.5 g/dl (12.0-16.0); Mean Corpuscular HGB Conc 33 g/dl (31-36); Mean Corpuscular Hemoglobin 29 pg (27-31); Mean Corpuscular Volume 88 fL (80-97); Mean Platelet Volume 7 um3 (7.4-10.4); Red Blood Count 2.94 10^6/ul (4.0-5.4); Red Cell Distribution Width 15 % (10.5-15); White Blood Count 15.6 10^3/ul (3.5-10.8)
[2016-08-18 07:00] LABS: Albumin 2.3 g/dL (3.2-5.2); BUN/Creatinine Ratio 16.2 (8-20); C Reactive Protein 154.37 mg/L (< 5.00); Calcium 8.6 mg/dL (8.6-10.3); EGFR African American 106.5 (>60); EGFR Non-African American 82.8 (>60); Globulin 4.1 g/dL (2-4); Magnesium 1.7 mg/dL (1.9-2.7); Phosphorus 3.8 mg/dL (2.5-5.0); Potassium 4.7 mmol/L (3.5-5.0); Total Bilirubin 0.5 mg/dL (0.2-1.0); Total Protein 6.4 g/dL (6.4-8.9)
[2016-08-18] MEDS: Mometasone/Formoter 200/5 MDI INH SCH ×2 (07:15→20:12)
[2016-08-18] MEDS: Dicyclomine CAP* 10 MG PO SCH ×3 (08:21→22:55)
[2016-08-18] MEDS: guaiFENesin LIQ* 100 MG/5 ML UDC PO SCH ×4 (08:21→21:03)
[2016-08-18] MEDS: Potassium Chlor TAB* 20 MEQ TAB.ER PO SCH ×4 (08:22→22:56)
[2016-08-18] MEDS: Potassium & Sodium Phos 250MG* = 1 PACKET PO SCH ×3 (08:22→22:56)
[2016-08-18] MEDS: Senna TAB PO SCH ×2 (08:22→20:59)
[2016-08-18] MEDS: Levothyroxine TAB* 100 MCG TAB PO SCH (08:22)
[2016-08-18] MEDS: Montelukast Sodium TAB* 10 MG PO SCH (08:23)
[2016-08-18] MEDS: Fluticasone NASAL SPRAY 50MCG* 16 gm SPRAY BTL BOTH NARES SCH (08:23)
[2016-08-18] MEDS: Docusate CAP* 100 MG PO SCH ×2 (08:23→20:58)
[2016-08-18] MEDS: Sertraline* 50 MG TAB PO SCH ×2 (08:23→21:01)
[2016-08-18] MEDS: Magnesium Oxide TAB* 400 MG PO SCH (08:23)
[2016-08-18] MEDS: Ondansetron TAB* 4 MG PO PRN ×2 (08:26→11:50)
[2016-08-18] MEDS: Acetaminophen TAB* 325 MG PO PRN (08:26)
[2016-08-18] MEDS ORDERED: Magnesium Sulfate 2 GM IV IVPB ONE ×2 (09:00→18:00)
[2016-08-18] MEDS: Omeprazole CAP* 20 MG PO SCH (11:21)
[2016-08-18] MEDS: oxyCODONE SR TAB(*) 40 MG TAB.SR PO SCH ×2 (11:21→23:02)
[2016-08-18] MEDS: Nystatin SUSPENSION* 100000 UNITS/ML 5 ML UDC PO SCH ×4 (11:32→22:55)
--- NOTE | 2016-08-18 12:58 | PN ---
Progress Note - Progress Note SOAP: Subjective: [] pt OOB to chair with improved right knee pain Objective: [] Vital Signs Temp Pulse Resp BP Pulse Ox 98.1 F 87 16 133/50 96 08/18/16 12:12 08/18/16 12:18 08/18/16 12:18 08/18/16 12:12 08/18/16 12:18 Laboratory Last Values WBC 15.6 10^3/ul (3.5-10.8) H 08/18/16 06:30 RBC 2.94 10^6/ul (4.0-5.4) L 08/18/16 06:30 RBC (Retic) 3.22 10^6/ul (4.6-6.2) L 08/12/16 05:10 Hgb 8.5 g/dl (12.0-16.0) L 08/18/16 06:30 Hct 26 % (35-47) L 08/18/16 06:30 HCT (Retic) 28 % (35-47) L 08/12/16 05:10 MCV 88 fL (80-97) 08/18/16 06:30 MCH 29 pg (27-31) 08/18/16 06:30 MCHC 33 g/dl (31-36) 08/18/16 06:30 RDW 15 % (10.5-15) 08/18/16 06:30 Plt Count 631 10^3/ul (150-450) H 08/18/16 06:30 MPV 7 um3 (7.4-10.4) L 08/18/16 06:30 Immature Gran % (Auto) 3 % (0-9) 08/16/16 05:42 Neut % (Auto) 81.3 % (38-83) 08/17/16 06:30 Lymph % (Auto) 10.5 % (25-47) L 08/17/16 06:30 Kay % (Auto) 5.8 % (1-9) 08/17/16 06:30 Eos % (Auto) 2.1 % (0-6) 08/17/16 06:30 Baso % (Auto) 0.3 % (0-2) 08/17/16 06:30 Absolute Neuts (auto) 13.0 10^3/ul (1.5-7.7) H 08/17/16 06:30 Absolute Lymphs (auto) 1.7 10^3/ul (1.0-4.8) 08/17/16 06:30 Absolute Monos (auto) 0.9 10^3/ul (0-0.8) H 08/17/16 06:30 Absolute Eos (auto) 0.3 10^3/ul (0-0.6) 08/17/16 06:30 Absolute Basos (auto) 0 10^3/ul (0-0.2) 08/17/16 06:30 Absolute Nucleated RBC 0.01 10^3/ul 08/17/16 06:30 Neutrophils % 71 % (38-83) 08/16/16 05:42 Band Neutrophils % 2 % (0-8) 08/16/16 05:42 Lymphocytes % 18 % (25-47) L 08/16/16 05:42 Monocytes % 6 % (0-13) 08/16/16 05:42 Eosinophils % 2 % (0-6) 08/16/16 05:42 Myelocytes % 1 % (0-1) 08/16/16 05:42 Nucleated RBC % 0.1 08/17/16 06:30 Normal RBC Morphology Normal (Normal) 08/16/16 05:42 ESR 112 mm/Hr (0-40) H 08/09/16 14:25 Retic Count, Calc 0.9 % (0.5-1.5) 08/12/16 05:10 Corrected Retic Count 0.6 % (0.5-1.5) 08/12/16 05:10 Retic Shift Factor 2.0 08/12/16 05:10 Retic Production Index 0.30 08/12/16 05:10 Immature Retic Fraction 0.40 08/12/16 05:10 Mean Retic Volume 97.5 08/12/16 05:10 INR (Anticoag Therapy) 1.09 (0.89-1.11) 08/09/16 15:00 APTT 30.6 seconds (26.0-36.3) 08/09/16 15:00 ABG pH 7.39 (7.35-7.45) 08/11/16 19:48 ABG pCO2 37 mmHg (35-45) 08/11/16 19:48 ABG pO2 82 mmHg (80-100) 08/11/16 19:48 ABG HCO3 23.1 mmol/L (19-31) 08/11/16 19:48 ABG O2 Saturation 96.9 % (95-98) 08/11/16 19:48 ABG Base Excess -2.3 (-2.0-2.0) L 08/11/16 19:48 Sodium 133 mmol/L (133-145) 08/18/16 06:30 Potassium 4.7 mmol/L (3.5-5.0) 08/18/16 06:30 Chloride 99 mmol/L (101-111) L 08/18/16 06:30 Carbon Dioxide 28 mmol/L (22-32) 08/18/16 06:30 Anion Gap 6 mmol/L (2-11) 08/18/16 06:30 BUN 11 mg/dL (6-24) 08/18/16 06:30 Creatinine 0.68 mg/dL (0.51-0.95) 08/18/16 06:30 Est GFR ( Amer) 106.5 (>60) 08/18/16 06:30 Est GFR (Non-Af Amer) 82.8 (>60) 08/18/16 06:30 BUN/Creatinine Ratio 16.2 (8-20) 08/18/16 06:30 Glucose 83 mg/dL (70-100) 08/18/16 06:30 Lactic Acid 0.7 mmol/L (0.5-2.0) 08/11/16 17:15 Uric Acid 2.9 mg/dL (2.3-6.6) 08/12/16 05:10 Calcium 8.6 mg/dL (8.6-10.3) 08/18/16 06:30 Phosphorus 3.8 mg/dL (2.5-5.0) 08/18/16 06:30 Magnesium 1.7 mg/dL (1.9-2.7) L 08/18/16 06:30 Total Bilirubin 0.50 mg/dL (0.2-1.0) 08/18/16 06:30 AST 18 U/L (13-39) 08/18/16 06:30 ALT 9 U/L (7-52) 08/18/16 06:30 Alkaline Phosphatase 101 U/L (34-104) 08/18/16 06:30 Ammonia 52 mol/L (16-53) 08/11/16 14:35 Troponin I 0.05 ng/mL (<0.04) H* 08/10/16 07:38 C-Reactive Protein 154.37 mg/L (< 5.00) H 08/18/16 06:30 Total Protein 6.4 g/dL (6.4-8.9) 08/18/16 06:30 Albumin 2.3 g/dL (3.2-5.2) L 08/18/16 06:30 Globulin 4.1 g/dL (2-4) H 08/18/16 06:30 Albumin/Globulin Ratio 0.6 (1-3) L 08/18/16 06:30 Amylase 26 U/L (29-103) L 08/18/16 06:30 Lipase 36 U/L (11.0-82.0) 08/18/16 06:30 Procalcitonin 1.8 ng/mL (<0.6) H 08/14/16 09:50 TSH 0.95 mcIU/mL (0.34-5.60) 08/12/16 05:10 Urine Color Yudi 08/10/16 09:03 Urine Appearance Cloudy 08/10/16 09:03 Urine pH 5.0 (5-9) 08/10/16 09:03 Ur Specific [place] 1.026 (1.010-1.030) 08/10/16 09:03 Urine Protein 1+(30 mg/dl) (Negative) H 08/10/16 09:03 Urine Ketones Trace (Negative) H 08/10/16 09:03 Urine Blood Negative (Negative) 08/10/16 09:03 Urine Nitrate Negative (Negative) 08/10/16 09:03 Urine Bilirubin Negative (Negative) 08/10/16 09:03 Urine Urobilinogen Negative (Negative) 08/10/16 09:03 Ur Leukocyte Esterase Trace (Negative) H 08/10/16 09:03 Urine WBC (Auto) 3+(>20/hpf) (Absent) H 08/10/16 09:03 Urine RBC (Auto) 2+(6-10/hpf) (Absent) H 08/10/16 09:03 Ur Squamous Epith Cells Present (Absent) H 08/10/16 09:03 Urine Bacteria 1+ (Absent) H 08/10/16 09:03 Hyaline Casts Present (Absent) H 08/10/16 09:03 Urine Glucose Negative (Negative) 08/10/16 09:03 Urine Ascorbic Acid * (Negative) H 08/10/16 09:03 Fluid Source Synovial fluid 08/11/16 15:35 Fluid Volume 4 mL 08/11/16 15:35 Fluid Color Yellow 08/11/16 15:35 Fluid Appearance Cloudy 08/11/16 15:35 Fluid WBC 02464 /mcL (0-148249) 08/11/16 15:35 Fluid RBC 28099 /mcL 08/11/16 15:35 Fluid Tot Cell Count 100 08/11/16 15:35 Fluid Neutrophils 97 % 08/11/16 15:35 Fluid Lymphocytes 2 % 08/11/16 15:35 Fluid Monocytes 1 % 08/11/16 15:35 Fluid Other Cells 3 08/11/16 15:35 Fluid Cell Count Rvw By 08/11/16 15:35 Fluid Crystals None seen 08/11/16 15:35 Fluid Comment 08/11/16 15:35 Vancomycin Trough 16.4 mcg/mL 08/16/16 14:25 Random Vancomycin 7.2 mcg/mL 08/10/16 14:47 Blood Type B Positive 08/17/16 06:30 Antibody Screen Negative 08/17/16 06:30 PE: moderate effusion, no warmth/redness, 2+ DP pulses, 5/5 LE strengths, good ROM Assessment: 81 yo s/p right TKA with questionable infection Plan: 1) continue Abx per ID 2) PT/OT 3) DVT prophylaxis 4) will continue to monitor
--- NOTE | 2016-08-18 15:12 | PN ---
Progress Note - Progress Note SOAP: Subjective: DOS:08/18/16 CC: pneumonia HPI: 81 year old woman admitted with right knee pain that was worse with walking had been that way a few days, nothing helped. Found to have hypoxia, cough, right sided infiltrate and right knee infection. No fever, rash, or diarrhea. Cough is better. Right knee less painful, doesn't hurt with ambulation. Has nausea, no abd pain or vomiting. Objective: [] Vital Signs Temp 36.8 C 08/17/16 07:23 Pulse 75 08/17/16 07:29 Resp 16 08/17/16 10:36 BP 129/50 08/17/16 07:23 Pulse Ox 98 08/17/16 07:31 Intake & Output 08/16/16 08/17/16 08/17/16 18:59 06:59 18:59 Intake Total 220 440 292 Output Total 403 517 5325 Balance -600 -518 -915 Intake: IV Fluids 25 ABX - VANCOMYCIN 25 IVPB 267 ABX - VANCOMYCIN 267 Oral 220 440 0 Output: Urine 650 991 3366 Gen:Awake, NAD Neuro: OX3, CN 2-12 intact HEENT:MMD, no thrush Heart:RRR no murmur Lungs: no wheeze, decreased BS and egophany Right upper lung field Abd:+BS NTND soft Skin: no rash MSK: right knee mild edema, non tender; L spine tender ABG pH 7.39 (7.35-7.45) 08/11/16 19:48 ABG HCO3 23.1 mmol/L (19-31) 08/11/16 19:48 Sodium 132 mmol/L (133-145) L 08/17/16 06:30 Potassium 4.9 mmol/L (3.5-5.0) 08/17/16 06:30 BUN 13 mg/dL (6-24) 08/17/16 06:30 Creatinine 0.62 mg/dL (0.51-0.95) 08/17/16 06:30 Calcium 8.5 mg/dL (8.6-10.3) L 08/17/16 06:30 Magnesium 2.0 mg/dL (1.9-2.7) 08/15/16 06:00 AST 27 U/L (13-39) 08/14/16 06:30 ALT 12 U/L (7-52) 08/14/16 06:30 Assessment: 1. MRSA pneumonia with acute hypoxemic respiratory failure 2. Infected right prosthetic knee; culture negative, suspect MRSA or Coag neg Staph 3. CKD, stage 2 4. low back pain, bone scan negative 5. nausea, benign abdominal exam ?medication side effect though I think vancomycin is less likely a cause Plan: 1. continue vancomycin goal trough 15-20, day 10, tolerating it well. Case discussed with Dr Medellin who had spoken with her son, the family would like to hold off on knee surgery given potential complications of surgery at her age. She had aspiration of the joint and it is improving, so I don't think it is unreasonable to hold off. Will plan on 6 weeks vancomycin and eventually rifampin with likely lifelong suppressive oral abx as I do not think she could tolerate a relapse and she may not have curative therapy.
[2016-08-18] MEDS: Ondansetron ODT TAB* 4 MG PO PRN (20:50)
[2016-08-18] MEDS: Cetirizine* 10 MG TAB PO SCH (20:50)
[2016-08-19] MEDS: Albuterol/Ipratropium NEB.SOL* Albuterol 2.5 MG/Ipratropium 0.5 MG 3 ML INH SCH ×2 (01:26→08:12)
[2016-08-19] MEDS: Heparin VIAL(*) 5000 UNITS/ML VIAL (FIVE THOUSAND) SUBCUT SCH ×3 (05:08→20:49)
[2016-08-19] MEDS: Vancomycin(*) 1,000 MG in NS 0.9% 250 ML* 250 ML IVPB SCH ×2 (05:08→15:51)
[2016-08-19] MEDS: Sertraline* 50 MG TAB PO SCH ×2 (08:03→22:22)
[2016-08-19] MEDS: guaiFENesin LIQ* 100 MG/5 ML UDC PO SCH ×4 (08:03→20:48)
[2016-08-19] MEDS: Nystatin SUSPENSION* 100000 UNITS/ML 5 ML UDC PO SCH ×4 (08:03→22:28)
[2016-08-19] MEDS: Potassium & Sodium Phos 250MG* = 1 PACKET PO SCH ×3 (08:03→22:22)
[2016-08-19] MEDS: Magnesium Oxide TAB* 400 MG PO SCH (08:04)
[2016-08-19] MEDS: Potassium Chlor TAB* 20 MEQ TAB.ER PO SCH ×4 (08:04→22:21)
[2016-08-19] MEDS: Levothyroxine TAB* 100 MCG TAB PO SCH (08:04)
[2016-08-19] MEDS: Dicyclomine CAP* 10 MG PO SCH (08:04)
[2016-08-19] MEDS: Senna TAB PO SCH ×2 (08:04→22:22)
[2016-08-19] MEDS: Omeprazole CAP* 20 MG PO SCH (08:04)
[2016-08-19] MEDS: Docusate CAP* 100 MG PO SCH ×2 (08:04→20:49)
[2016-08-19] MEDS: Montelukast Sodium TAB* 10 MG PO SCH (08:04)
[2016-08-19] MEDS: oxyCODONE TAB* 5 MG TAB PO PRN ×2 (08:05→17:23)
[2016-08-19] MEDS: Fluticasone NASAL SPRAY 50MCG* 16 gm SPRAY BTL BOTH NARES SCH (08:09)
[2016-08-19] MEDS: Mometasone/Formoter 200/5 MDI INH SCH ×2 (08:11→20:49)
[2016-08-19] MEDS: Ondansetron ODT TAB* 4 MG PO PRN (08:19)
[2016-08-19] MEDS: oxyCODONE SR TAB(*) 40 MG TAB.SR PO SCH ×2 (11:09→22:22)
[2016-08-19] MEDS ORDERED: Dicyclomine CAP* 10 MG PO PRN (11:44)
[2016-08-19] MEDS: Cetirizine* 10 MG TAB PO SCH (20:49)
[2016-08-20] MEDS: Ondansetron ODT TAB* 4 MG PO PRN ×2 (00:39→10:39)
[2016-08-20] MEDS: Vancomycin(*) 1,000 MG in NS 0.9% 250 ML* 250 ML IVPB SCH ×2 (04:25→16:21)
[2016-08-20] MEDS: oxyCODONE TAB* 5 MG TAB PO PRN ×2 (04:33→14:25)
[2016-08-20] MEDS: Heparin VIAL(*) 5000 UNITS/ML VIAL (FIVE THOUSAND) SUBCUT SCH ×3 (05:32→21:23)
[2016-08-20 05:59] LABS: Hematocrit 25 % (35-47); Hemoglobin 8.3 g/dl (12.0-16.0); Mean Corpuscular HGB Conc 33 g/dl (31-36); Mean Corpuscular Hemoglobin 29 pg (27-31); Mean Corpuscular Volume 88 fL (80-97); Mean Platelet Volume 6 um3 (7.4-10.4); Red Blood Count 2.88 10^6/ul (4.0-5.4); Red Cell Distribution Width 15 % (10.5-15); White Blood Count 10.4 10^3/ul (3.5-10.8)
[2016-08-20 06:18] LABS: BUN/Creatinine Ratio 14.1 (8-20); C Reactive Protein 116.01 mg/L (< 5.00); Calcium 8.5 mg/dL (8.6-10.3); EGFR African American 90.9 (>60); EGFR Non-African American 70.7 (>60); Magnesium 1.9 mg/dL (1.9-2.7); Potassium 4.6 mmol/L (3.5-5.0)
[2016-08-20] MEDS: Levothyroxine TAB* 100 MCG TAB PO SCH (08:14)
[2016-08-20] MEDS: Mometasone/Formoter 200/5 MDI INH SCH ×2 (08:33→20:31)
[2016-08-20] MEDS: guaiFENesin LIQ* 100 MG/5 ML UDC PO SCH ×4 (10:02→21:22)
[2016-08-20] MEDS: Senna TAB PO SCH ×2 (10:03→21:19)
[2016-08-20] MEDS: Omeprazole CAP* 20 MG PO SCH (10:03)
[2016-08-20] MEDS: Montelukast Sodium TAB* 10 MG PO SCH (10:03)
[2016-08-20] MEDS: Nystatin SUSPENSION* 100000 UNITS/ML 5 ML UDC PO SCH ×4 (10:03→21:23)
[2016-08-20] MEDS: Potassium & Sodium Phos 250MG* = 1 PACKET PO SCH ×3 (10:03→21:16)
[2016-08-20] MEDS: oxyCODONE SR TAB(*) 40 MG TAB.SR PO SCH ×2 (10:04→21:17)
[2016-08-20] MEDS: Magnesium Oxide TAB* 400 MG PO SCH (10:04)
[2016-08-20] MEDS: Potassium Chlor TAB* 20 MEQ TAB.ER PO SCH ×4 (10:04→21:20)
[2016-08-20] MEDS: Docusate CAP* 100 MG PO SCH ×2 (10:04→21:19)
[2016-08-20] MEDS: Sertraline* 50 MG TAB PO SCH ×2 (10:04→21:19)
[2016-08-20] MEDS: Fluticasone NASAL SPRAY 50MCG* 16 gm SPRAY BTL BOTH NARES SCH (10:05)
[2016-08-20] MEDS: Cetirizine* 10 MG TAB PO SCH (21:18)
[2016-08-21] MEDS: Ondansetron ODT TAB* 4 MG PO PRN ×2 (00:04→19:27)
[2016-08-21] MEDS: oxyCODONE TAB* 5 MG TAB PO PRN ×3 (00:05→14:40)
[2016-08-21] MEDS ORDERED: Vancomycin Trough Check NOTE FOLLOW UP ONE (03:30)
[2016-08-21] MEDS: Vancomycin(*) 1,000 MG in NS 0.9% 250 ML* 250 ML IVPB SCH (04:52)
[2016-08-21] MEDS: Heparin VIAL(*) 5000 UNITS/ML VIAL (FIVE THOUSAND) SUBCUT SCH ×3 (07:18→22:13)
[2016-08-21] MEDS: Levothyroxine TAB* 100 MCG TAB PO SCH (07:18)
[2016-08-21] MEDS: Mometasone/Formoter 200/5 MDI INH SCH ×2 (08:20→19:59)
[2016-08-21] MEDS: Vancomycin(*) 750 MG in NS 0.9% 250 ML* 250 ML IVPB SCH ×2 (08:48→20:10)
[2016-08-21] MEDS: guaiFENesin LIQ* 100 MG/5 ML UDC PO SCH ×4 (10:43→20:35)
[2016-08-21] MEDS: Montelukast Sodium TAB* 10 MG PO SCH (10:44)
[2016-08-21] MEDS: Potassium Chlor TAB* 20 MEQ TAB.ER PO SCH ×4 (10:44→20:52)
[2016-08-21] MEDS: Sertraline* 50 MG TAB PO SCH ×2 (10:44→20:53)
[2016-08-21] MEDS: oxyCODONE SR TAB(*) 40 MG TAB.SR PO SCH ×2 (10:44→22:11)
[2016-08-21] MEDS: Magnesium Oxide TAB* 400 MG PO SCH (10:44)
[2016-08-21] MEDS: Senna TAB PO SCH ×2 (10:44→20:52)
[2016-08-21] MEDS: Omeprazole CAP* 20 MG PO SCH (10:45)
[2016-08-21] MEDS: Docusate CAP* 100 MG PO SCH ×2 (10:45→20:41)
[2016-08-21] MEDS: Magic M W2 Ben/Maal/Nyst/Lido* 240 ML MOUTHWASH (alt formulation) SWISH SPIT SCH ×4 (10:46→20:51)
[2016-08-21] MEDS: Fluticasone NASAL SPRAY 50MCG* 16 gm SPRAY BTL BOTH NARES SCH (10:46)
[2016-08-21] MEDS: Potassium & Sodium Phos 250MG* = 1 PACKET PO SCH ×3 (10:46→20:37)
[2016-08-21] MEDS: Ondansetron TAB* 4 MG PO PRN (12:23)
[2016-08-21] MEDS ORDERED: Regadenoson* 0.4 MG/5 ML SYRINGE ONE (13:57)
--- NOTE | 2016-08-21 14:34 | RAD ---
Edited for charges. Indication: Elevated troponins. Myocardial perfusion scan was performed utilizing 1 day protocol. Rest myocardial perfusion was performed after intravenous injection of 9.9 mCi of technetium 99m tetrofosmin. 25.1 mCi of technetium 99 and tetrofosmin was injected for the stress portion of the study. Pharmacological stress was applied. There is homogeneous distribution of the radiotracer throughout the left ventricle. There is a minimal fixed defect in the lateral wall of the left ventricle. No reversible change is identified. The ejection fraction is 80% stress. Evaluation of wall motion demonstrates no focal wall motion abnormality. IMPRESSION: Minimal lateral wall fixed defect. Normal ejection fraction. ASSESSMENT: Low risk Based on imaging criteria from ACC/AHA 2002 Guideline Update for the Management of Patients With Chronic Stable Angina Table 23. Noninvasive Risk Stratification. MTDD
--- NOTE | 2016-08-21 15:42 | PN ---
Progress Note - Progress Note SOAP: Subjective: Pt is doing well. She report minimal pain in her knee. She has been OOB. She has some pain when she is walking. Objective: PE: General- A%O, WDWN 81 y/o F in NAD RLE: well healed midline surgical incision, minimal redness and heat at inferior aspect of incision, moderate effusion, good ROM, +2 DP pulse, sensation intact Vital Signs Temp Pulse Resp BP Pulse Ox 97.8 F 94 20 130/52 97 08/21/16 08:03 08/21/16 08:03 08/21/16 14:40 08/21/16 08:03 08/21/16 08:24 Laboratory Results - last 24 hr 08/21/16 03:45 Vancomycin Trough 21.0 Assessment: Prior Right TKA with possible infection Plan: Abx per ID PT/OT Cont DVT prophylaxis Cont to monitor
[2016-08-21] MEDS: Acetaminophen TAB* 325 MG PO PRN (17:37)
[2016-08-21] MEDS: Cetirizine* 10 MG TAB PO SCH (20:40)
[2016-08-22] MEDS: oxyCODONE TAB* 5 MG TAB PO PRN ×3 (07:31→20:51)
[2016-08-22] MEDS: Heparin VIAL(*) 5000 UNITS/ML VIAL (FIVE THOUSAND) SUBCUT SCH ×3 (07:32→22:43)
[2016-08-22] MEDS: Levothyroxine TAB* 100 MCG TAB PO SCH (07:32)
[2016-08-22] MEDS ORDERED: NS 0.9% 250 ML* 250 ML ONE (08:08)
[2016-08-22] MEDS: Ondansetron TAB* 4 MG PO PRN (08:14)
[2016-08-22] MEDS: Mometasone/Formoter 200/5 MDI INH SCH ×2 (08:15→19:51)
[2016-08-22] MEDS: Senna TAB PO SCH ×2 (08:17→20:53)
[2016-08-22] MEDS: guaiFENesin LIQ* 100 MG/5 ML UDC PO SCH ×4 (08:17→20:52)
[2016-08-22] MEDS: Potassium Chlor TAB* 20 MEQ TAB.ER PO SCH ×4 (08:19→20:53)
[2016-08-22] MEDS: Potassium & Sodium Phos 250MG* = 1 PACKET PO SCH ×3 (08:19→20:52)
[2016-08-22] MEDS: Vancomycin(*) 750 MG in NS 0.9% 250 ML* 250 ML IVPB SCH ×2 (08:19→19:50)
[2016-08-22] MEDS: Sertraline* 50 MG TAB PO SCH ×2 (08:19→20:53)
[2016-08-22] MEDS: Docusate CAP* 100 MG PO SCH ×2 (08:19→20:52)
[2016-08-22] MEDS: Montelukast Sodium TAB* 10 MG PO SCH (09:00)
[2016-08-22] MEDS: Magnesium Oxide TAB* 400 MG PO SCH (09:00)
[2016-08-22] MEDS: Omeprazole CAP* 20 MG PO SCH (09:00)
[2016-08-22] MEDS: Fluticasone NASAL SPRAY 50MCG* 16 gm SPRAY BTL BOTH NARES SCH (09:00)
[2016-08-22] MEDS: Magic M W2 Ben/Maal/Nyst/Lido* 240 ML MOUTHWASH (alt formulation) SWISH SPIT SCH ×4 (10:00→20:52)
[2016-08-22] MEDS: Ondansetron ODT TAB* 4 MG PO PRN ×2 (12:10→20:51)
[2016-08-22] MEDS: oxyCODONE SR TAB(*) 40 MG TAB.SR PO SCH ×2 (15:32→22:43)
[2016-08-22] MEDS: Cetirizine* 10 MG TAB PO SCH (20:52)
[2016-08-22] MEDS ORDERED: Alteplase (CATHFLO)* 2 MG VIAL IV ONE (22:00)
[2016-08-23] MEDS: oxyCODONE TAB* 5 MG TAB PO PRN ×3 (05:50→20:24)
[2016-08-23] MEDS: Levothyroxine TAB* 100 MCG TAB PO SCH (05:51)
[2016-08-23] MEDS: Heparin VIAL(*) 5000 UNITS/ML VIAL (FIVE THOUSAND) SUBCUT SCH ×3 (05:51→22:34)
[2016-08-23] MEDS ORDERED: Vancomycin Trough Check NOTE FOLLOW UP ONE (07:30)
[2016-08-23] MEDS: Mometasone/Formoter 200/5 MDI INH SCH ×2 (08:51→19:06)
[2016-08-23] MEDS: Vancomycin(*) 750 MG in NS 0.9% 250 ML* 250 ML IVPB SCH ×2 (10:03→20:23)
[2016-08-23] MEDS: guaiFENesin LIQ* 100 MG/5 ML UDC PO SCH ×4 (10:08→20:24)
[2016-08-23] MEDS: oxyCODONE SR TAB(*) 40 MG TAB.SR PO SCH ×2 (10:09→22:34)
[2016-08-23] MEDS: Sertraline* 50 MG TAB PO SCH ×2 (10:09→20:25)
[2016-08-23] MEDS: Docusate CAP* 100 MG PO SCH ×2 (10:09→20:25)
[2016-08-23] MEDS: Potassium Chlor TAB* 20 MEQ TAB.ER PO SCH ×4 (10:09→20:25)
[2016-08-23] MEDS: Omeprazole CAP* 20 MG PO SCH (10:09)
[2016-08-23] MEDS: Magnesium Oxide TAB* 400 MG PO SCH (10:09)
[2016-08-23] MEDS: Senna TAB PO SCH ×2 (10:10→20:26)
[2016-08-23] MEDS: Montelukast Sodium TAB* 10 MG PO SCH (10:11)
[2016-08-23] MEDS: Potassium & Sodium Phos 250MG* = 1 PACKET PO SCH ×3 (10:11→20:24)
[2016-08-23] MEDS: Magic M W2 Ben/Maal/Nyst/Lido* 240 ML MOUTHWASH (alt formulation) SWISH SPIT SCH ×4 (10:11→20:26)
[2016-08-23] MEDS: Fluticasone NASAL SPRAY 50MCG* 16 gm SPRAY BTL BOTH NARES SCH (10:12)
[2016-08-23] MEDS: Ondansetron ODT TAB* 4 MG PO PRN ×2 (10:23→20:25)
--- NOTE | 2016-08-23 10:52 | PN ---
Progress Note - Progress Note SOAP: Subjective: Pt doing ok, states that she still has some pain in knee but better than before. Able to ambulate with walker and tolerating pain. Denies CP/SOB Objective: Vital Signs: Temp Pulse Resp BP Pulse Ox 98.0 F 88 16 132/57 94 08/23/16 07:56 08/23/16 07:56 08/23/16 10:09 08/23/16 07:56 08/23/16 07:56 Gen: A & Ox3, NAD at rest, laying in bed RLE: Moderate effusion at knee, no erythema or warmth. Mild ttp. Able to actively flex to about 90 deg before discomfort. N/V intact distally Assessment: Right knee effusion with possible infection Plan: Cont abx per ID Will continue to follow
--- NOTE | 2016-08-23 11:08 | PN ---
Subjective - Subjective Reason for Note: Progress Note History: She is feeling better this morning. She has her usual level of pain, nothing more. Compared with when I saw her last week, it is much improved - she no longer has the severe back pain she complained about then and resulted in my ordering a 3 phase bone scan, that was negative in terms of her back. She has lessened coughing and decreased sputum production. She has no dyspnea. Her bowels are looser, but no increased frequency of defecation and no incontinence. Her right knee is not causing more pain. 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 Right knee pain (Acute) M25.561 Right upper lobe pneumonia (Acute) J18.1 Severe low back pain (Acute) M54.5 Status post right knee replacement (Acute) Z96.651 Asthma (Chronic) J45.909 continue home pulmonary meds CKD (chronic kidney disease) (Chronic) N18.9 DVT prophylaxis (Chronic 08/23/14) [id number] lovenox HTN (hypertension) (Chronic) I10 History of pulmonary embolism (Chronic) Z86.711 Hypothyroidism (Chronic) E03.9 cont Synthroid Scoliosis deformity of spine (Chronic) M41.9 Spinal stenosis (Chronic) M48.00 Current Medications: Current Medications Acetaminophen (Tylenol Tab*) 650 mg PO Q4H PRN PRN Reason: FEVER/PAIN Last Admin: 08/21/16 17:37 Dose: 650 mg Albuterol (Ventolin Hfa Inhaler*) 2 puff INH Q4H PRN PRN Reason: WHEEZING/SHORTNESS OF BREATH Cetirizine HCl (Zyrtec*) 10 mg PO BEDTIME [facility] Last Admin: 08/22/16 20:52 Dose: 10 mg Dicyclomine HCl (Bentyl Cap*) 10 mg PO TID PRN PRN Reason: INTESTINAL SPASM Last Admin: 08/22/16 08:18 Dose: 10 mg Docusate Sodium (Colace Cap*) 100 mg PO BID [facility] Last Admin: 08/23/16 10:09 Dose: 100 mg Fluticasone Propionate (Flonase Nasal [place] 50mcg*) 2 spray BOTH NARES DAILY [facility] Last Admin: 08/23/16 10:12 Dose: 2 spray Guaifenesin (Robitussin*) 10 ml PO QID [facility] Last Admin: 08/23/16 10:08 Dose: 10 ml Heparin Sodium (Porcine) (Heparin Vial(*)) 5,000 units SUBCUT Q8HR [facility] Last Admin: 08/23/16 05:51 Dose: 5,000 units Heparin Sodium (Porcine) (Heparin Flush Picc/Ml/Cvc(*)) 0 ml IV FLUSH 0600, 1800 ZACH PRN Reason: Protocol Last Admin: 08/23/16 05:50 Dose: 2 ml Vancomycin HCl 750 mg/ Sodium (Chloride) 250 mls @ 166.667 mls/hr IVPB Q12H [facility] Last Admin: 08/23/16 10:03 Dose: 166.667 mls/hr Levothyroxine Sodium (Synthroid Tab*) 100 mcg PO DAILY@0600 [facility] Last Admin: 08/23/16 05:51 Dose: 100 mcg Magnesium Oxide (Magox 400 Tab*) 400 mg PO DAILY [facility] Last Admin: 08/23/16 10:09 Dose: 400 mg Meclizine HCl (Antivert Tab*) 25 mg PO QID PRN PRN Reason: DIZZINESS Methocarbamol (Robaxin Tab*) 500 mg PO Q6H PRN PRN Reason: SPASMS - MUSCLE Last Admin: 08/14/16 09:29 Dose: 500 mg Mometasone Furoate/Formoterol Fumar (Dulera 200/5 Mdi*) 2 puff INH BID [facility] Last Admin: 08/23/16 08:51 Dose: 2 puff Montelukast Sodium (Singulair Tab*) 10 mg PO DAILY [facility] Last Admin: 08/23/16 10:11 Dose: 10 mg Multi-Ingredient Mouthwash/Gargle (Magic M W2 Cristian/Maal/Nyst/Lido*) 10 ml SWISH SPIT QID [facility] Last Admin: 08/23/16 10:11 Dose: 10 ml Omeprazole (Prilosec Cap*) 20 mg PO DAILY [facility] Last Admin: 08/23/16 10:09 Dose: 20 mg Ondansetron HCl (Zofran Odt Tab*) 8 mg PO Q8H PRN PRN Reason: NAUSEA Last Admin: 08/23/16 10:23 Dose: 8 mg Ondansetron HCl (Zofran Tab*) 8 mg PO TID PRN PRN Reason: NAUSEA/VOMITING Last Admin: 08/22/16 08:14 Dose: 8 mg Oxycodone HCl (Roxycodone Tab*) 10 mg PO Q4H PRN PRN Reason: PAIN Last Admin: 08/23/16 05:50 Dose: 10 mg Oxycodone HCl (Oxycontin(*)) 40 mg PO Q12H [facility] Last Admin: 08/23/16 10:09 Dose: 40 mg Pharmacy Consult (Vancomycin Per Pharmacy*) 1 note FOLLOW UP .VANC PER PHARMACY [facility] Pharmacy Profile Note (Vancomycin Trough Check) 1 note FOLLOW UP 0730 ONE Stop: 08/26/16 07:31 Potassium Chloride (Klor Con Er Tab*) 20 meq PO QID [facility] Last Admin: 08/23/16 10:09 Dose: 20 meq Potassium Phos/Sodium Phos (Neutra Phos 250 Mg Manuel*) 250 mg PO TID [facility] Last Admin: 08/23/16 10:11 Dose: 250 mg Senna (Senokot Tab*) 2 tab PO BEDTIME [facility] Last Admin: 08/22/16 20:53 Dose: 2 tab Senna (Senokot Tab*) 3 tab PO DAILY [facility] Last Admin: 08/23/16 10:10 Dose: 3 tab Sertraline HCl (Zoloft*) 50 mg PO BID [facility] Last Admin: 08/23/16 10:09 Dose: 50 mg - Review of Systems Constitutional Symptoms: No: Fever, Night Sweats Pulmonary: Positive: Cough, Sputum Negative: Hemoptysis, Respiratory Distress, Shortness of Breath Cardiology: Negative: Chest Pain, Shortness of Breath, Palpitations Gastroenterology: Positive: Anorexia, Change in Bowel Habits Negative: Abdominal Pain, Nausea, Vomiting Home Medications: Home Medications Medication Instructions Recorded Confirmed Type Montelukast Sodium TAB* [Singulair 10 mg PO DAILY 05/09/12 08/09/16 History 5 mg TAB*] Apple Cider Vinegar 600 mg PO DAILY 03/19/14 08/09/16 History Dicyclomine CAP* [Bentyl CAP*] 10 mg PO QID 03/19/14 08/09/16 History Estropipate(NF) [Ogen(NF)] 0.75 mg PO QAM 03/19/14 08/09/16 History Fluticasone NASAL * [Flonase *] 2 spray BOTH NARES DAILY 03/19/14 08/09/16 History Nrjrqjjeeej-NTI-Spz C-Manganes 1 tab PO DAILY 03/19/14 08/09/16 History [Glucosamine MSM Complex] Levothyroxine TAB* [Synthroid 100 100 mcg PO 0800 03/19/14 08/09/16 History MCG TAB*] Magnesium Gluconate [Mag-G] 500 mg PO DAILY 03/19/14 08/09/16 History Ondansetron [Zofran Odt] 8 mg SL Q6H PRN 03/19/14 08/09/16 History oxyCODONE TAB* [Roxycodone TAB 5 5 - 10 mg PO Q6H PRN MDD 40 mg 03/19/14 History mg*] Docusate CAP* [Colace Cap*] 100 mg PO BID 08/22/14 08/09/16 History Meclizine TAB* [Antivert 12.5 TAB*] 25 mg PO QID PRN 01/16/16 08/09/16 History Methocarbamol TAB* [Robaxin TAB*] 500 mg PO Q6H PRN 01/16/16 08/09/16 History Mometasone/Formoter 200/5 MDI* 2 puff INH BID 01/16/16 08/09/16 History [Dulera 200/5 MDI*] Multivitamins/Minerals TAB* 1 tab PO DAILY 01/16/16 08/09/16 History [Theragran/minerals TAB*] Potassium Chlor TAB* [Potassium 20 meq PO QID 01/16/16 08/09/16 History Chlor TAB 20 MEQ*] Senna TAB* [Senokot TAB*] 1 tab PO DAILY 01/16/16 08/09/16 History Sertraline* [Zoloft*] 150 mg PO BID 01/16/16 08/09/16 History Triamterene/HCTZ 37.5-25 MG* 1 cap PO DAILY 01/16/16 08/09/16 History [Dyazide CAP*] oxyCODONE SR TAB(*) [Oxycontin 40 40 mg PO Q12HR 01/16/16 08/09/16 History mg (*)] Allergies: Allergies Allergy/AdvReac Type Severity Reaction Status Date / Time Adhesive Tape Allergy Rash Verified 03/09/16 09:51 Ciprofloxacin [From Cipro] AdvReac Vomiting Verified 03/09/16 09:51 Erythromycin AdvReac Vomiting Verified 03/09/16 09:51 Iodine AdvReac Anaphylatic Verified 03/09/16 09:51 Shock Penicillins AdvReac Hives/Diff. Verified 03/09/16 09:51 Breathing/I tching Sulfa Drugs AdvReac Nausea Verified 03/09/16 09:51 Tetracycline AdvReac Nausea Verified 03/09/16 09:51 Objective - Vital Signs Vital Signs: Vital Signs 08/22/16 08/22/16 08/22/16 12:32 14:32 15:10 Temperature 98.7 F Pulse Rate 93 Respiratory 18 16 17 Rate Blood Pressure 100/41 (mmHg) O2 Sat by Pulse 95 Oximetry 08/22/16 08/22/16 08/22/16 15:32 17:32 20:00 Temperature Pulse Rate Respiratory 18 16 20 Rate Blood Pressure (mmHg) O2 Sat by Pulse 97 Oximetry 08/22/16 08/22/16 08/22/16 20:51 22:43 23:36 Temperature 98.1 F Pulse Rate 84 Respiratory 20 16 20 Rate Blood Pressure 117/50 (mmHg) O2 Sat by Pulse 97 Oximetry 08/23/16 08/23/16 08/23/16 00:43 05:50 07:56 Temperature 98.0 F Pulse Rate 88 Respiratory 20 20 20 Rate Blood Pressure 132/57 (mmHg) O2 Sat by Pulse 94 Oximetry 08/23/16 10:09 Temperature Pulse Rate Respiratory 16 Rate Blood Pressure (mmHg) O2 Sat by Pulse Oximetry - Intake and Output Intake and Output: Intake & Output 08/20/16 08/21/16 08/22/16 08/23/16 11:59 11:59 11:59 11:59 Intake Total 920 960 560 3344 Balance 920 836 126 6518 Intake: IV Fluids 15 NS (0.9%) 15 IVPB 271 250 ABX - VANCOMYCIN 271 250 Oral 920 210 934 1691 Other: Estimated Void Large Medium Medium Small Date of Last Bowel 08/20/2016 08/23/16 Movement # Bowel Movements 1 0 0 1 Estimated Stool Amount Small Small # Voids 1 1 1 1 ADLs: Meal Record Start: 08/09/16 18: 47 Freq: DAILY@0900,1400,1800 Status: Complete Created 08/09/16 18:47 System (Rec: 08/09/16 18:47 System MED-M04) Document 08/10/16 09:00 [id number] (Rec: 08/10/16 09:37 ADJ7000 MED-C11) Document 08/10/16 18:00 JCN6426 (Rec: 08/10/16 20:22 RZU9143 MED-C11) Document 08/11/16 09:00 KFD6059 (Rec: 08/11/16 10:40 PGM0729 MED-C09) Document 08/11/16 13:38 LHJ8785 (Rec: 08/11/16 13:39 ORT2499 MED-C09) Document 08/11/16 18:00 BDK1989 (Rec: 08/11/16 21:44 MNA1327 MED-C09) ADLs: Meal Record Start: 08/12/16 00: 32 Freq: Status: Complete Created 08/12/16 00:32 WQZ2821 (Rec: 08/12/16 00:32 PKG3316 ICU-C25) Document 08/13/16 10:48 TOB2404 (Rec: 08/13/16 10:48 QLX7509 ICU-C07) Document 08/13/16 18:15 DGG8622 (Rec: 08/13/16 18:16 AQI6213 ICU-C07) Document 08/13/16 18:28 TGF4350 (Rec: 08/13/16 18:28 TPR7738 ICU-C07) ADLs: Meal Record Start: 08/15/16 11: 02 Freq: DAILY@0900,1400,1800 Status: Inactive Created 08/15/16 11:02 BYU9586 (Rec: 08/15/16 11:02 QOD6766 ICU-C07) ADLs: Meal Record Start: 08/15/16 15: 28 Freq: Status: Active Created 08/15/16 15:28 KCH3513 (Rec: 08/15/16 15:28 OLI5286 SSU-M02) Document 08/15/16 17:44 DRC1956 (Rec: 08/15/16 17:45 RDX2222 SSU-C08) Document 08/16/16 11:44 RZR8016 (Rec: 08/16/16 11:44 JRH9994 SSU-C08) Document 08/16/16 19:06 SRU3449 (Rec: 08/16/16 19:06 HDD1824 SSU-C12) Document 08/17/16 11:15 IDJ4667 (Rec: 08/17/16 12:18 FAI4072 SSU-C03) Document 08/17/16 23:15 IOG8665 (Rec: 08/17/16 23:18 OCT6027 SSU-C04) Document 08/19/16 09:43 UGR6784 (Rec: 08/19/16 09:43 ITV3014 MED-C11) Document 08/19/16 21:59 KIT6401 (Rec: 08/19/16 22:00 RTC5007 MED-C09) Document 08/20/16 09:21 SOM8476 (Rec: 08/20/16 09:21 GDX6050 MED-C11) Document 08/20/16 13:10 OPW7049 (Rec: 08/20/16 13:10 HMM2835 MED-C11) Document 08/21/16 08:45 MZL8125 (Rec: 08/21/16 08:45 WEH5518 MED-C09) Document 08/21/16 13:48 ZJK0320 (Rec: 08/21/16 13:48 PSJ8030 MED-C09) Document 08/21/16 22:00 UPE3997 (Rec: 08/21/16 22:27 AQT8620 MED-C09) Document 08/22/16 21:53 EZA6262 (Rec: 08/22/16 21:53 AEM3976 MED-C11) Document 08/23/16 10:23 MMK6056 (Rec: 08/23/16 10:23 GOK2687 MED-C42) Intake and Output Start: 08/09/16 18: 47 Freq: DAILY@0600,1400,2200 Status: Complete Created 08/09/16 18:47 System (Rec: 08/09/16 18:47 System MED-M04) Document 08/09/16 22:00 BLW0726 (Rec: 08/09/16 22:15 YVL6158 MED-C09) Document 08/10/16 06:00 OGN5473 (Rec: 08/10/16 06:24 TZI9237 MEDL-C01) Document 08/10/16 09:09 VEH3251 (Rec: 08/10/16 09:09 GTV5882 MED-C11) Document 08/10/16 22:00 RRM3058 (Rec: 08/10/16 22:51 GMJ5133 MED-C11) Document 08/11/16 06:00 VIH0385 (Rec: 08/11/16 06:11 ARJ6356 MEDL-C01) Document 08/11/16 11:19 FUO8332 (Rec: 08/11/16 11:19 UTP6841 MED-C09) Document 08/11/16 22:00 GDA0560 (Rec: 08/11/16 22:20 SRK6578 MED-C09) Intake and Output Start: 08/12/16 00: 32 Freq: 06,14,2200 Status: Complete Created 08/12/16 00:32 DKW4896 (Rec: 08/12/16 00:32 PXD5142 ICU-C25) Document 08/13/16 05:15 OPU3732 (Rec: 08/13/16 05:15 GWO5274 ICU-M20) Document 08/13/16 11:47 AIR1493 (Rec: 08/13/16 11:47 LCY3660 CMC-RDC2) Document 08/13/16 11:47 VSS4333 (Rec: 08/13/16 11:47 XVP3190 CMC-RDC2) Document 08/13/16 14:00 ZGC1832 (Rec: 08/13/16 14:08 MOT4894 ICU-M05) Document 08/13/16 22:00 YOK9998 (Rec: 08/13/16 23:00 UDK7260 ICU-C07) Document 08/14/16 03:00 NDB4491 (Rec: 08/14/16 06:45 DDW7417 ICU-C07) Document 08/14/16 06:00 ANM2610 (Rec: 08/14/16 06:45 ZLG9319 ICU-C14) Document 08/14/16 09:12 LYZ5733 (Rec: 08/14/16 09:12 TTP1262 ICU-C20) Document 08/14/16 14:00 LOA2794 (Rec: 08/14/16 14:11 KRD7897 ICU-C20) Document 08/14/16 15:22 NIB1429 (Rec: 08/14/16 15:22 QYY3699 ICU-C07) Document 08/14/16 17:00 KPW1183 (Rec: 08/14/16 18:18 VRH4992 ICU-C07) Document 08/14/16 22:00 ALO3728 (Rec: 08/14/16 22:23 ZNG2021 ICU-C15) Document 08/15/16 05:29 LRY9927 (Rec: 08/15/16 05:30 KUE2522 ICU-C07) Document 08/15/16 06:00 NLS7091 (Rec: 08/15/16 06:13 AMF0268 ICU-C16) Document 08/15/16 06:51 RJH1423 (Rec: 08/15/16 06:51 JQW7658 ICU-C07) Intake and Output Start: 08/15/16 11: 02 Freq: DAILY@0600,1400,2200 Status: Inactive Created 08/15/16 11:02 EVA4027 (Rec: 08/15/16 11:02 PCQ9481 ICU-C07) Intake and Output Start: 08/15/16 15: 28 Freq: DAILY@0600,1400,2200 Status: Active Created 08/15/16 15:28 DWC8749 (Rec: 08/15/16 15:28 TUH4695 SSU-M02) Document 08/15/16 17:24 ILL8010 (Rec: 08/15/16 17:24 ABK5880 SSU-M10) Document 08/15/16 22:00 IVH3771 (Rec: 08/16/16 00:02 ZKF4178 SSU-C03) Document 08/16/16 04:05 SZF9267 (Rec: 08/16/16 04:32 QQV1648 SSU-C19) Document 08/16/16 05:55 FFD5919 (Rec: 08/16/16 05:56 XCP6916 SSU-C19) Document 08/16/16 16:00 CZT6899 (Rec: 08/16/16 17:41 MXH2366 SSU-C05) Document 08/16/16 19:11 GJU6945 (Rec: 08/16/16 19:11 UDQ1355 SSU-C05) Document 08/16/16 22:47 FEA8826 (Rec: 08/16/16 22:47 DZU3373 SSU-C11) Document 08/17/16 05:00 NCZ5815 (Rec: 08/17/16 05:01 LZE4776 SSU-C11) Document 08/17/16 10:05 PVT7356 (Rec: 08/17/16 10:05 FIB1351 SSU-C03) Document 08/17/16 14:00 FHE2511 (Rec: 08/17/16 14:10 XBA2010 SSU-C01) Document 08/17/16 14:00 UOP8848 (Rec: 08/17/16 19:11 XJC5153 SSU-C04) Document 08/17/16 20:36 GDA1735 (Rec: 08/17/16 20:36 PLM4554 SSU-M12) Document 08/17/16 22:49 HZN3697 (Rec: 08/17/16 22:49 HEV7069 SSU-M12) Document 08/17/16 23:15 EOA3540 (Rec: 08/17/16 23:18 LJS1648 SSU-C04) Document 08/18/16 05:41 DDQ5952 (Rec: 08/18/16 05:41 CPP0076 SSU-C02) Document 08/18/16 06:21 RSH6471 (Rec: 08/18/16 06:21 OIG3754 SSU-M12) Document 08/18/16 10:37 SDX3843 (Rec: 08/18/16 10:38 UNL8431 SSU-C11) Document 08/18/16 14:22 QHA3399 (Rec: 08/18/16 14:22 RVB2250 MED-L05) Document 08/18/16 22:00 RDR5541 (Rec: 08/18/16 22:52 JXA6739 MED-C11) Document 08/19/16 06:00 BDI2648 (Rec: 08/19/16 06:16 XYV6837 MED-C42) Document 08/19/16 12:26 VLC5032 (Rec: 08/19/16 12:27 RGN0487 MED-M04) Document 08/19/16 14:00 QAN4907 (Rec: 08/19/16 15:08 EWM4252 MED-L06) Document 08/19/16 21:59 GOG0535 (Rec: 08/19/16 22:00 HNY1658 MED-C09) Document 08/20/16 06:00 FGA6743 (Rec: 08/20/16 06:32 EPB5768 MEDL-C01) Document 08/20/16 12:04 NQI3244 (Rec: 08/20/16 12:04 JOG2449 MED-C11) Document 08/20/16 22:00 KBQ7844 (Rec: 08/20/16 22:12 WGM7429 MED-C11) Document 08/21/16 06:00 CKZ3634 (Rec: 08/21/16 06:04 GHM4795 MEDL-C01) Document 08/21/16 13:47 CYC4967 (Rec: 08/21/16 13:48 UYI4604 MED-C09) Document 08/21/16 22:00 JRU5039 (Rec: 08/21/16 22:27 ZSC6921 MED-C09) Document 08/22/16 05:45 LKR9590 (Rec: 08/22/16 05:45 RVV4892 MEDL-C01) Document 08/22/16 14:00 IUS5310 (Rec: 08/22/16 14:57 DVU4142 MED-C11) Document 08/22/16 21:53 BEF0829 (Rec: 08/22/16 21:53 HTA5024 MED-C11) Document 08/23/16 06:00 UMF2296 (Rec: 08/23/16 06:01 CWE3129 MEDL-C02) Document 08/23/16 10:22 AYN5943 (Rec: 08/23/16 10:22 XMQ2213 MED-C42) Intake and Output Start: 08/19/16 12: 26 Freq: Status: Active Created 08/19/16 12:26 LBP4333 (Rec: 08/19/16 12:26 HFX4431 MED-M04) - Physical Exam General: No Cyanosis, Yes Anemia, No Jaundice, No Clubbing Skin: Normal: Rash Lungs and Chest: Yes: Chest Expansion Full, Chest Expansion Symetrica, Percussion Note Resonant, Vessicular Breath Sounds, Crackles - a few in the right base. No: Wheezes, Respiratory Distress, Use of Accessory Muscles Heart Rate and Rhythm: Regular JVP: Not Elevated Additional Cardiovascular: Yes: Normal Heart Sounds. No: Heart Murmur Abdominal Exam: Yes: Soft, Bowel Sounds Present. No: Distention, Rigidity, Hepatomegaly, Abdominal Tenderness Results - Results Lab Results: Laboratory Results - last 24 hr 08/23/16 08:15 Vancomycin Trough 19.3 Radiology Results: Patient Name: QUENTIN STEWARD Medical Record#: [id number] Ordering Physician: Elie Quispe MD Acct. #: [id number] : 1935 Age: 81 Sex: F Location: SURGICAL STAY UNIT Exam Date: 08/17/16 ADM Status: ADM IN Order Information: NM BONE SCAN IMAGING 3 PHASE Accession Number: [id number] CPT: 18245 INDICATION: Severe back pain. Pneumonia. Question septic arthritis. COMPARISON: January 11, 2015 CT abdomen pelvis. TECHNIQUE: 20.800 mCi of Tc-99m MDP were injected IV. Angiographic and blood pool images of the of the lumbar sacral spine and pelvis were obtained. Approximately 2 hours after injection, anterior and posterior whole body images and spot images of the lumbar sacral spine and pelvis were obtained. FINDINGS: Unremarkable anterior and posterior angiographic phase and blood pool images of the lumbar sacral spine and pelvis. Mild increased activity at the LEFT margin of the mid lumbar spine corresponds with advanced scoliosis and degenerative arthropathy on prior CT. Whole body images are remarkable for polyarticular increased activity including at the acromioclavicular joints, shoulders, and wrists consistent with presence of arthropathy. Mild increased activity at the margins of the bilateral prosthetic knees. The kidneys are normal in size and position and without evidence for obstructive uropathy. IMPRESSION: No evidence for lumbar sacral spine discitis - osteomyelitis or septic arthritis. CPT II: CPT II Codes: 3570F <Electronically signed by Jose Manuel MD in [place]> 08/17/16 1244 Dictated By: Jose Manuel MD Dictated Date/Time: 08/17/16 1244 Transcribed Date/Time: 08/17/16 1867 Copy to: CC:Elie Quispe MD; Grisel Medellin MD; Andrew Mike MD; Román Wynn MD; Roldan Aviles MD Imaging - [facility] Imaging - [facility] Imaging - [facility] [address] [place] [address] [address] [address] ph [phone]) ph ([phone]) ph ([phone]) 1 of 1 Assessment - Problem List Assessment: Patient Problems Infected prosthetic knee joint (Acute) Right knee pain (Acute) Right upper lobe pneumonia (Acute) Severe low back pain (Acute) Status post right knee replacement (Acute) Asthma (Chronic) CKD (chronic kidney disease) (Chronic) DVT prophylaxis (Chronic 08/23/14) HTN (hypertension) (Chronic) History of pulmonary embolism (Chronic) Hypothyroidism (Chronic) Scoliosis deformity of spine (Chronic) Spinal stenosis (Chronic) Pneumonia (Acute) Chronic low back pain (Chronic) Chronic pain (Chronic) Full code status (Chronic 08/23/14) Limping (Chronic) Numbness in feet (Chronic) Physical medicine and rehabilitation procedures (Chronic 08/23/14) 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 Asthma (Chronic) stable CKD (chronic kidney disease) (Chronic) stable DVT prophylaxis (Chronic 08/23/14) ongoing HTN (hypertension) (Chronic) BP on target History of pulmonary embolism (Chronic) anticoagulated Hypothyroidism (Chronic) continue current Rx Full code status (Chronic 08/23/14) I discussed the above with the patient and she agrees with her ongoing management plan. I have reviewed her polypharmacy and I am not changing anything.
[2016-08-23] MEDS: Ondansetron TAB* 4 MG PO PRN ×2 (14:43→23:00)
[2016-08-23] MEDS: Cetirizine* 10 MG TAB PO SCH (20:26)
[2016-08-23] MEDS: Acetaminophen TAB* 325 MG PO PRN (23:00)
[2016-08-24] MEDS: oxyCODONE TAB* 5 MG TAB PO PRN ×4 (06:00→21:31)
[2016-08-24] MEDS: Heparin VIAL(*) 5000 UNITS/ML VIAL (FIVE THOUSAND) SUBCUT SCH (06:01)
[2016-08-24] MEDS: Levothyroxine TAB* 100 MCG TAB PO SCH (06:01)
[2016-08-24 06:42] LABS: Hematocrit 29 % (35-47); Hemoglobin 9.2 g/dl (12.0-16.0); Mean Corpuscular HGB Conc 32 g/dl (31-36); Mean Corpuscular Hemoglobin 28 pg (27-31); Mean Corpuscular Volume 89 fL (80-97); Mean Platelet Volume 7 um3 (7.4-10.4); Red Blood Count 3.28 10^6/ul (4.0-5.4); Red Cell Distribution Width 15 % (10.5-15); White Blood Count 7.8 10^3/ul (3.5-10.8)
[2016-08-24 06:51] LABS: Albumin 2.8 g/dL (3.2-5.2); C Reactive Protein 109.64 mg/L (< 5.00); Calcium 9.2 mg/dL (8.6-10.3); EGFR African American 75.2 (>60); EGFR Non-African American 58.4 (>60); Globulin 4.8 g/dL (2-4); Magnesium 1.7 mg/dL (1.9-2.7); Phosphorus 4.1 mg/dL (2.5-5.0); Potassium 4.6 mmol/L (3.5-5.0); Total Bilirubin 0.4 mg/dL (0.2-1.0); Total Protein 7.6 g/dL (6.4-8.9)
[2016-08-24] MEDS: Vancomycin(*) 750 MG in NS 0.9% 250 ML* 250 ML IVPB SCH ×2 (07:27→21:13)
[2016-08-24] MEDS: Potassium & Sodium Phos 250MG* = 1 PACKET PO SCH ×3 (07:27→21:21)
[2016-08-24] MEDS: Magnesium Oxide TAB* 400 MG PO SCH (07:27)
[2016-08-24] MEDS: Montelukast Sodium TAB* 10 MG PO SCH (07:27)
[2016-08-24] MEDS: Omeprazole CAP* 20 MG PO SCH (07:27)
[2016-08-24] MEDS: Potassium Chlor TAB* 20 MEQ TAB.ER PO SCH ×4 (07:27→21:24)
[2016-08-24] MEDS: Sertraline* 50 MG TAB PO SCH ×2 (07:27→21:22)
[2016-08-24] MEDS: Docusate CAP* 100 MG PO SCH ×2 (07:28→21:22)
[2016-08-24] MEDS: guaiFENesin LIQ* 100 MG/5 ML UDC PO SCH (07:29)
[2016-08-24] MEDS: Fluticasone NASAL SPRAY 50MCG* 16 gm SPRAY BTL BOTH NARES SCH (07:29)
[2016-08-24] MEDS: Magic M W2 Ben/Maal/Nyst/Lido* 240 ML MOUTHWASH (alt formulation) SWISH SPIT SCH ×4 (07:36→21:32)
[2016-08-24] MEDS: Senna TAB PO SCH ×2 (07:38→21:23)
--- NOTE | 2016-08-24 08:09 | RAD ---
INDICATION: Pneumonia COMPARISON: Most recent chest x-rays dated August 17, 2016 TECHNIQUE: PA and lateral views of the chest were obtained. FINDINGS: The right-sided PICC line with the tip terminating in the superior vena cava is unchanged in position from the most recent chest x-ray. The heart and mediastinum are normal in size and contour. Again seen is density along the lateral aspect of the right upper lung that appears mostly confined to the right upper lobe on the AP and lateral views. There has been interval improvement in aeration when compared to the most recent chest x-ray. The left lung remains clear. There is no evidence of large pleural effusion. Visualized bones are normal for the patient's age. There is no radiographic evidence of free air beneath the diaphragm IMPRESSION: PERSISTENT BUT IMPROVING PNEUMONIA INVOLVING MAINLY THE LATERAL RIGHT UPPER LOBE WHEN COMPARED TO THE MOST RECENT CHEST X-RAY DATED AUGUST 17, 2016.
[2016-08-24] MEDS: Mometasone/Formoter 200/5 MDI INH SCH ×2 (08:23→20:33)
[2016-08-24] MEDS: oxyCODONE SR TAB(*) 40 MG TAB.SR PO SCH ×2 (10:34→22:20)
[2016-08-24] MEDS: guaiFENesin ER TAB 600 MG PO SCH ×2 (12:05→21:23)
[2016-08-24] MEDS: Ondansetron TAB* 4 MG PO PRN ×2 (13:45→21:41)
[2016-08-24] MEDS: Ondansetron ODT TAB* 4 MG PO PRN (16:47)
[2016-08-24] MEDS: Cetirizine* 10 MG TAB PO SCH (21:23)
[2016-08-25] MEDS: oxyCODONE TAB* 5 MG TAB PO PRN ×3 (05:13→21:47)
[2016-08-25] MEDS: Levothyroxine TAB* 100 MCG TAB PO SCH (05:14)
[2016-08-25] MEDS: Sertraline* 50 MG TAB PO SCH ×2 (07:08→20:40)
[2016-08-25] MEDS: Montelukast Sodium TAB* 10 MG PO SCH (07:08)
[2016-08-25] MEDS: Senna TAB PO SCH ×2 (07:08→20:40)
[2016-08-25] MEDS: guaiFENesin ER TAB 600 MG PO SCH ×2 (07:09→20:39)
[2016-08-25] MEDS: Docusate CAP* 100 MG PO SCH ×2 (07:09→20:39)
[2016-08-25] MEDS: Potassium Chlor TAB* 20 MEQ TAB.ER PO SCH ×4 (07:10→20:40)
[2016-08-25] MEDS: Vancomycin(*) 750 MG in NS 0.9% 250 ML* 250 ML IVPB SCH ×2 (07:14→19:56)
[2016-08-25] MEDS: Potassium & Sodium Phos 250MG* = 1 PACKET PO SCH ×3 (07:15→20:40)
[2016-08-25] MEDS: Magnesium Oxide TAB* 400 MG PO SCH (07:15)
[2016-08-25] MEDS: Fluticasone NASAL SPRAY 50MCG* 16 gm SPRAY BTL BOTH NARES SCH (07:15)
[2016-08-25] MEDS: Magic M W2 Ben/Maal/Nyst/Lido* 240 ML MOUTHWASH (alt formulation) SWISH SPIT SCH ×4 (07:15→20:39)
[2016-08-25] MEDS: Omeprazole CAP* 20 MG PO SCH (07:15)
--- NOTE | 2016-08-25 08:34 | RAD ---
INDICATION: Total right knee with infection. COMPARISON: Comparison is made with a prior bone scan from August 17, 2016. TECHNIQUE: 4 views of the right knee were obtained. FINDINGS: The patient is status post total right knee replacement surgery. The bones and prostheses are in normal alignment. There is no evidence for loosening. No significant focal osseous abnormality or erosion is seen. There is suggestion of a small joint effusion. IMPRESSION: STATUS POST TOTAL RIGHT KNEE REPLACEMENT SURGERY. THERE IS SUGGESTION OF A SMALL JOINT EFFUSION.
[2016-08-25] MEDS: Mometasone/Formoter 200/5 MDI INH SCH ×2 (10:34→20:19)
[2016-08-25] MEDS: oxyCODONE SR TAB(*) 40 MG TAB.SR PO SCH ×2 (11:10→22:27)
[2016-08-25] MEDS ORDERED: NS 0.9% 1000 ML* 1,000 ML IV SCH (13:15)
[2016-08-25] MEDS ORDERED: Midazolam* 1 MG/ML 2 ML VIAL (2 MG) ONE (13:26)
[2016-08-25] MEDS ORDERED: fentaNYL* 50 MCG/ML 2 ML VIAL (100 MCG VIAL) ONE ×4 (14:15→17:08)
[2016-08-25] MEDS ORDERED: Cisatracurium* 2 MG/ML MDV 10 ML ONE (15:00)
[2016-08-25] MEDS ORDERED: Lidocaine 2% MPF* 2 ML VIAL ONE (15:02)
[2016-08-25] MEDS ORDERED: Succinylcholine* 20 MG/ML 10 ML VIAL ONE (15:02)
[2016-08-25] MEDS ORDERED: Propofol* 10 MG/ML 20 ML BTL IV PUSH ONE (15:02)
[2016-08-25] MEDS ORDERED: Famotidine IV* 10 MG/ML 2 ML (20 mg) ONE (15:02)
[2016-08-25] MEDS ORDERED: Dexamethasone IV* 4 MG/ML 1 ML (4 MG) ONE (15:02)
[2016-08-25] MEDS ORDERED: Bupivacaine 0.5% W/EPI SDV* 30 ML VIAL ONE (15:40)
[2016-08-25] MEDS ORDERED: Desflurane* 240 ML INH ONE (15:42)
[2016-08-25] MEDS ORDERED: DiMENhydriNATE IV* 50 MG/ML VIAL IV PUSH PRN (15:46)
[2016-08-25] MEDS ORDERED: Ondansetron INJ* 2 MG/ML VIAL IV PRN (15:46)
[2016-08-25] MEDS ORDERED: PROCHLORPERAZINE INJ 5 MG/ML 2 ML VIAL IV PRN (15:46)
[2016-08-25] MEDS ORDERED: oxyCODONE/Acetamin 5/325 MG* TAB PO PRN ×2 (15:46→17:07)
[2016-08-25] MEDS ORDERED: diPHENhydraMINE IV* 50 MG/ML 1 ml VIAL (BENADRYL) IV PRN (17:07)
[2016-08-25] MEDS: fentaNYL* 50 MCG/ML 2 ML VIAL (100 MCG VIAL) IV PRN ×4 (17:10→17:31)
[2016-08-25] MEDS ORDERED: oxyCODONE TAB* 5 MG TAB ONE (17:55)
[2016-08-25] MEDS ORDERED: Morphine INJ* 2 MG/ML 1 ML CARPUJECT ONE (18:58)
[2016-08-25] MEDS: Morphine INJ* 2 MG/ML 1 ML CARPUJECT IV PRN ×2 (19:00→21:16)
[2016-08-25] MEDS: Methocarbamol TAB* 500 MG PO PRN (19:36)
[2016-08-25] MEDS: Ferrous Sulfate TAB* 325 MG PO SCH (20:39)
[2016-08-25] MEDS: Cetirizine* 10 MG TAB PO SCH (20:39)
[2016-08-25] MEDS: Ondansetron ODT TAB* 4 MG PO PRN (21:42)
--- NOTE | 2016-08-25 22:18 | RAD ---
INDICATION: Status post right total knee arthroplasty (revision) COMPARISON: Preoperative x-ray dated August 25, 2016 TECHNIQUE: 2 view radiograph of the right knee. FINDINGS: The right knee prosthesis is anatomically aligned in the AP and lateral projections. Postoperative findings include a percutaneous surgical drain and skin christina. IMPRESSION: Anatomic alignment of right knee prosthesis.
[2016-08-25] MEDS ORDERED: Morphine INJ* 4 MG/ML 1 ML CARPUJECT IV ONE (23:00)
[2016-08-26] MEDS: oxyCODONE/Acetamin 5/325 MG* TAB PO PRN ×2 (00:31→09:44)
[2016-08-26] MEDS: Morphine INJ* 4 MG/ML 1 ML CARPUJECT IV PRN ×8 (01:38→22:29)
[2016-08-26 05:08] LABS: Hematocrit 26 % (35-47); Hemoglobin 8.3 g/dl (12.0-16.0)
[2016-08-26 05:19] LABS: BUN/Creatinine Ratio 13.9 (8-20); EGFR African American 89.6 (>60); EGFR Non-African American 69.7 (>60); Potassium 4.1 mmol/L (3.5-5.0)
[2016-08-26] MEDS: Levothyroxine TAB* 100 MCG TAB PO SCH (05:36)
[2016-08-26] MEDS: Heparin VIAL(*) 5000 UNITS/ML VIAL (FIVE THOUSAND) SUBCUT SCH ×3 (05:37→21:48)
[2016-08-26] MEDS ORDERED: Vancomycin Trough Check NOTE FOLLOW UP ONE (07:30)
[2016-08-26] MEDS: Mometasone/Formoter 200/5 MDI INH SCH ×2 (07:59→20:51)
[2016-08-26] MEDS: Omeprazole CAP* 20 MG PO SCH (09:23)
[2016-08-26] MEDS: Sertraline* 50 MG TAB PO SCH ×2 (09:24→20:12)
[2016-08-26] MEDS: guaiFENesin ER TAB 600 MG PO SCH ×2 (09:24→20:11)
[2016-08-26] MEDS: Ferrous Sulfate TAB* 325 MG PO SCH ×2 (09:24→20:12)
[2016-08-26] MEDS: Senna TAB PO SCH ×2 (09:25→20:12)
[2016-08-26] MEDS: Montelukast Sodium TAB* 10 MG PO SCH (09:25)
[2016-08-26] MEDS: Vitamin THERAPEUTIC TAB PO SCH (09:26)
[2016-08-26] MEDS: Potassium Chlor TAB* 20 MEQ TAB.ER PO SCH ×4 (09:26→20:12)
[2016-08-26] MEDS: Magnesium Oxide TAB* 400 MG PO SCH (09:26)
[2016-08-26] MEDS: Docusate CAP* 100 MG PO SCH ×2 (09:26→20:11)
[2016-08-26] MEDS: Magic M W2 Ben/Maal/Nyst/Lido* 240 ML MOUTHWASH (alt formulation) SWISH SPIT SCH ×4 (09:27→20:17)
[2016-08-26] MEDS: Fluticasone NASAL SPRAY 50MCG* 16 gm SPRAY BTL BOTH NARES SCH (09:27)
[2016-08-26] MEDS: Potassium & Sodium Phos 250MG* = 1 PACKET PO SCH ×3 (09:27→20:12)
[2016-08-26] MEDS: Vancomycin(*) 750 MG in NS 0.9% 250 ML* 250 ML IVPB SCH ×2 (09:44→19:38)
--- NOTE | 2016-08-26 10:29 | OP ---
CC: Dr. Grisel Medellin. OPERATIVE REPORT: DATE OF OPERATION: 08/25/16 DATE OF : 33 SURGICAL CARE: Right total knee. SURGEON: Román Wynn MD TURNING MACHINE OPERATOR: 1. ERIAC Fleming 2. first Day assistant ANESTHESIOLOGIST: Joseph Brown MD ANESTHESIA: Endotracheal tube general. PRE-OP DIAGNOSIS: Acutely infected right total knee replacement. POST-OP DIAGNOSIS: Acutely infected right total knee replacement. OPERATIVE PROCEDURE: Right knee incision and drainage, synovectomy, exchange of the articular surfa ce, and irrigation. COMPLICATIONS: There were no complications. DRAINS: Two drains knee at the end of the case. ESTIMATED BLOOD LOSS: 100 mL. FLUIDS REPLACED: Crystalloid fluids. INDICATIONS: An infected total knee replacement. The patient has been hospitalized since 08/09 to 08/10/16 with a Staph pneumonia and her knee was infected, coincidental with the pneumonia. At the start of this hospitalization, the patient has been on vancomycin since that time and cared for by Marta Medellin and Infectious Diseases, Dr. Kulkarni. The initial culture done from the right knee did not grow any bacteria, but the fluid was pus like. DESCRIPTION OF PROCEDURE: The patient was brought to the operating room and placed on the operating room table in a supine position. Following the administration of the anesthetic and insertion of t he endotracheal tube, a Fernández catheter was inserted. The right proximal thigh was wrapped with a to urniquet. The right leg was prepped from the tourniquet to the tips of the toes and then draped pat e and carefully sealed off in the usual fashion for arthroplasty of the knee. We did our universal protocol time-out confirming, Zaida Duke, and our plan for the above described surgery. We all agr eed and we proceeded. The leg was exsanguinated, the tourniquet elevated to 275. The knee was appr oached with a previous skin incision. Careful hemostasis throughout the case utilizing electrocauter y. The knee was entered medial parapatellar and the intermediate soft tissues on the tibia were ranulfo vated subperiosteally going around to the deep MCL. The knee had some cloudy fluid within it and th ere were some areas of fibrinous material sitting in some of the recesses. A tissue culture was don e of some of this loose fibrinous material. I proceeded with synovectomy anteriorly, medial gutter, lateral gutter, some posteriorly, and some around the patella. The old articular surface was remove d. The knee was spread with a laminar ironer sock and the knee was irrigated throughout with 9 L of kyle ine irrigation solution. All loose fibrinous material was excised. The new articular surface was sn apped into position. The tourniquet was deflated. Careful hemostasis checked and achieved. Drains were brought out the lateral suprapatellar pouch. The quad mechanism was reapproximated with interr upted #1 Polysorb sutures, the same with the medial retinaculum and distally the tissues were closed with interrupted 0 Polysorb sutures. The bursa closed with interrupted 0 Polysorb, the superficial subcu closed with interrupted 3-0 Polysorb, and the skin was closed with christina. The knee was irr igated during closure with saline as well. The skin was washed and dried, and then covered with Xer oform, the surgery and the drains, sterile gauze, sterile Webril, cryotherapy cuff, ABD pads, and th en a 6-inch Asad bandage loosely applied. The dorsalis pedis pulse was 2+ at the end of the case and the procedure was well tolerated. The patient was returned to the recovery room in stable and sati sfactory condition having tolerated the procedure very well. [id number]/[facility] #: [id number]
[2016-08-26] MEDS: oxyCODONE SR TAB(*) 40 MG TAB.SR PO SCH ×2 (10:59→22:28)
[2016-08-26] MEDS: Methocarbamol TAB* 500 MG PO PRN ×2 (13:34→19:36)
[2016-08-26] MEDS ORDERED: Morphine INJ* 2 MG/ML 1 ML CARPUJECT IV ONE (19:00)
[2016-08-26] MEDS: oxyCODONE TAB* 5 MG TAB PO PRN (19:35)
[2016-08-26] MEDS: Cetirizine* 10 MG TAB PO SCH (20:12)
[2016-08-26] MEDS: Ondansetron ODT TAB* 4 MG PO PRN (21:45)
[2016-08-27] MEDS: Morphine INJ* 4 MG/ML 1 ML CARPUJECT IV PRN ×4 (00:38→22:33)
[2016-08-27] MEDS: Heparin VIAL(*) 5000 UNITS/ML VIAL (FIVE THOUSAND) SUBCUT SCH ×3 (05:58→21:58)
[2016-08-27] MEDS: Levothyroxine TAB* 100 MCG TAB PO SCH (05:59)
[2016-08-27 06:13] LABS: Hematocrit 30 % (35-47); Hemoglobin 9.6 g/dl (12.0-16.0)
[2016-08-27 06:31] LABS: BUN/Creatinine Ratio 13.7 (8-20); C Reactive Protein 133.3 mg/L (< 5.00); Calcium 8.9 mg/dL (8.6-10.3); EGFR African American 98.2 (>60); EGFR Non-African American 76.3 (>60); Potassium 4.1 mmol/L (3.5-5.0)
[2016-08-27] MEDS: Vancomycin(*) 750 MG in NS 0.9% 250 ML* 250 ML IVPB SCH ×2 (08:17→19:23)
[2016-08-27] MEDS: Potassium & Sodium Phos 250MG* = 1 PACKET PO SCH ×3 (08:55→20:34)
[2016-08-27] MEDS: Senna TAB PO SCH ×2 (08:55→20:34)
[2016-08-27] MEDS: Omeprazole CAP* 20 MG PO SCH (08:55)
[2016-08-27] MEDS: Potassium Chlor TAB* 20 MEQ TAB.ER PO SCH ×4 (08:56→20:34)
[2016-08-27] MEDS: Sertraline* 50 MG TAB PO SCH ×2 (08:56→20:34)
[2016-08-27] MEDS: oxyCODONE/Acetamin 5/325 MG* TAB PO PRN (08:56)
[2016-08-27] MEDS: oxyCODONE SR TAB(*) 40 MG TAB.SR PO SCH ×2 (08:56→21:57)
[2016-08-27] MEDS: Fluticasone NASAL SPRAY 50MCG* 16 gm SPRAY BTL BOTH NARES SCH (08:57)
[2016-08-27] MEDS: Ferrous Sulfate TAB* 325 MG PO SCH ×2 (08:57→20:34)
[2016-08-27] MEDS: Magic M W2 Ben/Maal/Nyst/Lido* 240 ML MOUTHWASH (alt formulation) SWISH SPIT SCH ×4 (08:57→20:35)
[2016-08-27] MEDS: Magnesium Oxide TAB* 400 MG PO SCH (08:57)
[2016-08-27] MEDS: Montelukast Sodium TAB* 10 MG PO SCH (08:57)
[2016-08-27] MEDS: Vitamin THERAPEUTIC TAB PO SCH (08:57)
[2016-08-27] MEDS: Docusate CAP* 100 MG PO SCH ×2 (08:57→20:33)
[2016-08-27] MEDS: guaiFENesin ER TAB 600 MG PO SCH ×2 (08:57→20:34)
[2016-08-27] MEDS: Mometasone/Formoter 200/5 MDI INH SCH ×2 (09:36→19:39)
[2016-08-27] MEDS: Ondansetron TAB* 4 MG PO PRN ×2 (10:34→16:46)
[2016-08-27] MEDS: Methocarbamol TAB* 500 MG PO PRN (13:27)
[2016-08-27] MEDS: oxyCODONE TAB* 5 MG TAB PO PRN ×3 (13:27→20:44)
[2016-08-27] MEDS ORDERED: Alteplase (CATHFLO)* 2 MG VIAL IV ONE (14:00)
[2016-08-27] MEDS: Cetirizine* 10 MG TAB PO SCH (20:44)
[2016-08-27] MEDS: Ondansetron ODT TAB* 4 MG PO PRN (21:01)
--- NOTE | 2016-08-27 21:12 | PN ---
Progress Note - Progress Note SOAP: Subjective: DOS:08/27/16 CC: pneumonia HPI: 81 year old woman admitted with right knee pain that was worse with walking had been that way a few days, nothing helped. Found to have MRSA PNA and right knee infection, then washout. No fever, rash, or diarrhea. Cough is gone. Right knee less painful, doesn't hurt with ambulation. Has nausea, no abd pain or vomiting. Objective: [] Vital Signs Temp 36.9 C 08/27/16 15:15 Pulse 85 08/27/16 15:15 Resp 19 08/27/16 20:44 BP 118/47 08/27/16 15:15 Pulse Ox 94 08/27/16 19:39 Intake & Output 08/27/16 08/27/16 08/28/16 06:59 18:59 06:59 Intake Total 2085 329 Output Total 2350 675 Balance -265 -346 Intake: IV Fluids 1485 229 NS (0.9%) 1485 229 Oral 600 100 Output: Urine 0 Fernández 2350 675 Other: # Bowel Movements 0 Gen:Awake, NAD Neck:supple Neuro: OX3, CN 2-12 intact HEENT:MMD, no thrush Heart:RRR no murmur Lungs: no wheeze, decreased BS and egophany Right upper lung field Abd:+BS NTND soft Skin: no rash MSK: right knee mild edema, non tender, ice pack on Laboratory Results - last 24 hr 08/27/16 08/27/16 06:02 06:02 Hgb 9.6 L Hct 30 L Sodium 133 Potassium 4.1 Chloride 99 L Carbon Dioxide 27 Anion Gap 7 BUN 10 Creatinine 0.73 Est GFR ( Amer) 98.2 Est GFR (Non-Af Amer) 76.3 BUN/Creatinine Ratio 13.7 Glucose 93 Calcium 8.9 C-Reactive Protein 133.30 H Assessment: 1. MRSA pneumonia, improving 2. Infected right prosthetic knee; culture negative, suspect MRSA or Coag neg Staph s/p I&D 3. CKD, stage 2 Plan: 1. continue vancomycin goal trough 15-20, day , tolerating it well. Eventual rifampin and lifelong suppresion. Outpatient abx ordered with weekly cbc, cmp, crp Case discussed with Dr Medellin.
[2016-08-28] MEDS: Morphine INJ* 4 MG/ML 1 ML CARPUJECT IV PRN ×2 (04:08→22:42)
[2016-08-28 04:22] LABS: Hematocrit 30 % (35-47); Hemoglobin 9.6 g/dl (12.0-16.0)
[2016-08-28] MEDS: Heparin VIAL(*) 5000 UNITS/ML VIAL (FIVE THOUSAND) SUBCUT SCH ×3 (06:03→22:21)
[2016-08-28] MEDS: Levothyroxine TAB* 100 MCG TAB PO SCH (06:04)
[2016-08-28] MEDS: Vancomycin(*) 750 MG in NS 0.9% 250 ML* 250 ML IVPB SCH ×2 (08:04→20:05)
[2016-08-28] MEDS: Magic M W2 Ben/Maal/Nyst/Lido* 240 ML MOUTHWASH (alt formulation) SWISH SPIT SCH ×4 (08:04→20:09)
[2016-08-28] MEDS: Omeprazole CAP* 20 MG PO SCH (08:05)
[2016-08-28] MEDS: Potassium & Sodium Phos 250MG* = 1 PACKET PO SCH ×3 (08:05→20:05)
[2016-08-28] MEDS: Docusate CAP* 100 MG PO SCH ×2 (08:05→20:04)
[2016-08-28] MEDS: Senna TAB PO SCH ×2 (08:05→20:02)
[2016-08-28] MEDS: Potassium Chlor TAB* 20 MEQ TAB.ER PO SCH ×4 (08:05→20:04)
[2016-08-28] MEDS: Vitamin THERAPEUTIC TAB PO SCH (08:05)
[2016-08-28] MEDS: Montelukast Sodium TAB* 10 MG PO SCH (08:06)
[2016-08-28] MEDS: Sertraline* 50 MG TAB PO SCH ×2 (08:06→20:04)
[2016-08-28] MEDS: Magnesium Oxide TAB* 400 MG PO SCH (08:06)
[2016-08-28] MEDS: Fluticasone NASAL SPRAY 50MCG* 16 gm SPRAY BTL BOTH NARES SCH (08:06)
[2016-08-28] MEDS: guaiFENesin ER TAB 600 MG PO SCH ×2 (08:06→20:04)
[2016-08-28] MEDS: Ferrous Sulfate TAB* 325 MG PO SCH ×2 (08:06→20:05)
[2016-08-28] MEDS: oxyCODONE TAB* 5 MG TAB PO PRN ×3 (08:11→20:03)
[2016-08-28] MEDS: Mometasone/Formoter 200/5 MDI INH SCH ×2 (08:51→20:27)
[2016-08-28] MEDS: oxyCODONE SR TAB(*) 40 MG TAB.SR PO SCH ×2 (10:31→22:20)
--- NOTE | 2016-08-28 15:11 | PN ---
Progress Note - Progress Note SOAP: Subjective: [81 y/o female admitted for MRSA PNA and R knee infection s/p I&D 08/25. Patient doign well, deccreased R knee pain/ warmth, swelling. No complaints, pain controlled with pain medication. ] Objective: [GEneral- Well appearing, sitting in chair comfortably, no acute distress MSK- Dressing intact, no drainage noted. Incision C/D/I. PT pulses 2+ b/l, minimal edema R LE. + dorsiflexion/ plnatarflexion ] Laboratory Results - last 24 hr 08/28/16 04:16 Hgb 9.6 L Hct 30 L Active Medications Generic Name Dose Route Start Last Admin Trade Name Freq PRN Reason Stop Dose Admin Acetaminophen 650 mg 08/09/16 20:55 08/23/16 23:00 Tylenol Tab* PO 650 mg Q4H PRN Administration FEVER/PAIN Albuterol 2 puff 08/10/16 10:05 Ventolin Hfa Inhaler* INH Q4H PRN WHEEZING/SHORTNESS OF BREATH Cetirizine HCl 10 mg 08/10/16 21:00 08/27/16 20:44 Zyrtec* PO 10 mg BEDTIME ZACH Administration Dicyclomine HCl 10 mg 08/19/16 11:44 08/22/16 08:18 Bentyl Cap* PO 10 mg TID PRN Administration INTESTINAL SPASM Diphenhydramine HCl 25 mg 08/25/16 17:07 Benadryl Iv* IV Q6H PRN itching Docusate Sodium 100 mg 08/09/16 21:00 08/28/16 08:05 Colace Cap* PO 100 mg BID ZACH Administration Ferrous Sulfate 325 mg 08/25/16 21:00 08/28/16 08:06 Ferrous Sulfate Tab* PO 325 mg BID ZACH Administration Fluticasone Propionate 2 spray 08/10/16 09:00 08/28/16 08:06 Flonase Nasal Hurley 50mcg* BOTH NARES 2 spray DAILY ZACH Administration Guaifenesin 600 mg 08/24/16 11:30 08/28/16 08:06 Mucinex* PO 600 mg Q12HR ZACH Administration Heparin Sodium (Porcine) 0 ml 08/13/16 20:00 08/28/16 06:04 Heparin Flush Picc/Ml/Cvc(*) IV FLUSH 1 ml 0600,1800 ZACH Administration Protocol Heparin Sodium (Porcine) 5,000 units 08/27/16 06:00 08/28/16 13:34 Heparin Vial(*) SUBCUT 5,000 units Q8H ZACH Administration Vancomycin HCl 750 mg/ Sodium 250 mls @ 166.667 mls/hr 08/21/16 08:00 08:04 Chloride IVPB 166.667 mls/hr Q12H ZACH Administration Lactated Ringer's 1,000 mls @ 100 mls/hr 08/25/16 18:00 08/28/16 11:26 Lactated Ringers 1000 Ml Bag* IV 100 mls/hr PER RATE ZACH Administration Levothyroxine Sodium 100 mcg 08/21/16 06:00 08/28/16 06:04 Synthroid Tab* PO 100 mcg DAILY@0600 ZACH Administration Magnesium Oxide 400 mg 08/10/16 09:00 08/28/16 08:06 Magox 400 Tab* PO 400 mg DAILY ZACH Administration Meclizine HCl 25 mg 08/09/16 17:18 Antivert Tab* PO QID PRN DIZZINESS Methocarbamol 500 mg 08/09/16 17:18 08/27/16 13:27 Robaxin Tab* PO 500 mg Q6H PRN Administration SPASMS - MUSCLE Mometasone Furoate/Formoterol Fumar 2 puff 08/09/16 21:00 08/28/16 08:51 Dulera 200/5 Mdi* INH 2 puff BID ZACH Administration Montelukast Sodium 10 mg 08/10/16 09:00 08/28/16 08:06 Singulair Tab* PO 10 mg DAILY ZACH Administration Morphine Sulfate 1.5 mg 08/25/16 17:07 08/25/16 21:16 Morphine Inj (Syringe)* IV 1.5 mg Q2H PRN Administration PAIN - BREAKTHROUGH Morphine Sulfate 4 mg 08/26/16 10:55 08/28/16 04:08 Morphine Inj (Syringe)* IV 4 mg Q2H PRN Administration PAIN Multi-Ingredient Mouthwash/Gargle 10 ml 08/21/16 09:00 08/28/16 13:34 Magic M W2 Cristian/Maal/Nyst/Lido* SWISH SPIT 10 ml QID ZACH Administration Multivitamins 1 tab 08/26/16 09:00 08/28/16 08:05 Theragran Tab* PO 1 tab DAILY ZACH Administration Omeprazole 20 mg 08/18/16 09:00 08/28/16 08:05 Prilosec Cap* PO 20 mg DAILY ZACH Administration Ondansetron HCl 8 mg 08/10/16 16:13 08/27/16 21:01 Zofran Odt Tab* PO 8 mg Q8H PRN Administration NAUSEA Ondansetron HCl 8 mg 08/17/16 18:48 08/27/16 16:46 Zofran Tab* PO 8 mg TID PRN Administration NAUSEA/VOMITING Oxycodone HCl 40 mg 08/17/16 10:30 08/28/16 10:31 Oxycontin(*) PO 40 mg Q12H ZACH Administration Oxycodone HCl 10 mg 08/26/16 02:08 08/28/16 14:26 Roxycodone Tab* PO 10 mg Q4H PRN Administration PAIN Pharmacy Consult 1 note 08/09/16 18:00 Vancomycin Per Pharmacy* FOLLOW UP .VANC PER PHARMACY ZACH Potassium Chloride 20 meq 08/09/16 21:00 08/28/16 13:34 Klor Con Er Tab* PO 20 meq QID ZACH Administration Potassium Phos/Sodium Phos 250 mg 08/12/16 14:00 08/28/16 13:34 Neutra Phos 250 Mg Manuel* PO 250 mg TID ZACH Administration Senna 2 tab 08/09/16 21:00 08/27/16 20:34 Senokot Tab* PO 2 tab BEDTIME ZACH Administration Senna 3 tab 08/10/16 09:00 08/28/16 08:05 Senokot Tab* PO 3 tab DAILY ZACH Administration Sertraline HCl 50 mg 08/12/16 09:00 08/28/16 08:06 Zoloft* PO 50 mg BID ZACH Administration Vital Signs Temp 98.2 F 08/28/16 07:24 Pulse 87 08/28/16 08:53 Resp 16 08/28/16 14:26 BP 138/58 08/28/16 07:24 Pulse Ox 98 08/28/16 08:53 Intake & Output 08/27/16 08/28/16 08/28/16 18:59 06:59 18:59 Intake Total 329 1587 1248 Output Total 675 1925 400 Balance -346 -338 848 Intake: IV Fluids 229 1337 563 LR 652 563 NS (0.9%) 229 685 IVPB 265 ABX - VANCOMYCIN 265 Oral 100 250 420 Output: Urine 0 1925 400 Fernández 675 Other: # Bowel Movements 0 1 Estimated Stool Amount Medium Assessment: [[81 y/o female admitted for MRSA PNA and R knee infection s/p I&D 08/25.] Plan: [- DVT- heparin -= Continue PT/OT - ID consult for ABX - Appreciate hospitalist input. - Continue current care
[2016-08-28] MEDS: Cetirizine* 10 MG TAB PO SCH (20:04)
[2016-08-28] MEDS: Ondansetron TAB* 4 MG PO PRN (22:20)
[2016-08-29] MEDS: Heparin VIAL(*) 5000 UNITS/ML VIAL (FIVE THOUSAND) SUBCUT SCH ×3 (05:20→23:18)
[2016-08-29] MEDS: Levothyroxine TAB* 100 MCG TAB PO SCH (05:20)
[2016-08-29 05:40] LABS: Hematocrit 27 % (35-47); Hemoglobin 8.7 g/dl (12.0-16.0)
[2016-08-29] MEDS: Docusate CAP* 100 MG PO SCH ×2 (07:26→23:15)
[2016-08-29] MEDS: Senna TAB PO SCH ×2 (07:26→23:00)
[2016-08-29] MEDS: Vitamin THERAPEUTIC TAB PO SCH (08:04)
[2016-08-29] MEDS: guaiFENesin ER TAB 600 MG PO SCH ×2 (08:04→23:15)
[2016-08-29] MEDS: Montelukast Sodium TAB* 10 MG PO SCH (08:04)
[2016-08-29] MEDS: Sertraline* 50 MG TAB PO SCH ×2 (08:04→23:17)
[2016-08-29] MEDS: Potassium Chlor TAB* 20 MEQ TAB.ER PO SCH ×4 (08:04→23:16)
[2016-08-29] MEDS: Omeprazole CAP* 20 MG PO SCH (08:04)
[2016-08-29] MEDS: Ferrous Sulfate TAB* 325 MG PO SCH ×2 (08:04→23:16)
[2016-08-29] MEDS: Magnesium Oxide TAB* 400 MG PO SCH (08:05)
[2016-08-29] MEDS: Potassium & Sodium Phos 250MG* = 1 PACKET PO SCH ×3 (08:05→23:18)
[2016-08-29] MEDS: Vancomycin(*) 750 MG in NS 0.9% 250 ML* 250 ML IVPB SCH ×2 (08:05→20:03)
[2016-08-29] MEDS: oxyCODONE TAB* 5 MG TAB PO PRN ×2 (08:05→17:20)
[2016-08-29] MEDS: Magic M W2 Ben/Maal/Nyst/Lido* 240 ML MOUTHWASH (alt formulation) SWISH SPIT SCH ×4 (08:10→23:18)
[2016-08-29] MEDS: Fluticasone NASAL SPRAY 50MCG* 16 gm SPRAY BTL BOTH NARES SCH (08:10)
[2016-08-29] MEDS: Mometasone/Formoter 200/5 MDI INH SCH ×2 (08:11→20:31)
[2016-08-29] MEDS: Ondansetron TAB* 4 MG PO PRN (10:13)
[2016-08-29] MEDS: oxyCODONE SR TAB(*) 40 MG TAB.SR PO SCH ×2 (10:13→23:15)
[2016-08-29] MEDS: Morphine INJ* 2 MG/ML 1 ML CARPUJECT IV PRN ×2 (12:54→23:13)
--- NOTE | 2016-08-29 13:37 | PN ---
Progress Note - Progress Note SOAP: Subjective: Pt states she is doing well. She is having some pain in her knee and her back but it is well controlled with pain medication. She denies CP, SOB, fever or chills. VSS overnight Objective: PE- 81 y/o WDWN F in NAD sitting comfortably in chair RLE- dressing changed, christina intact, some erythema and warmth over distal half of incision, no purulent drainage. +DF/PF at ankle, calf soft nontender. NVI Vital Signs Temp Pulse Resp BP Pulse Ox 97.8 F 78 18 133/37 93 08/29/16 07:56 08/29/16 07:56 08/29/16 12:54 08/29/16 07:56 08/29/16 07:56 Laboratory Results - last 24 hr 08/29/16 05:20 Hgb 8.7 L Hct 27 L Assessment: 81 y/o F admitted for MRSA PNA and infection of prior R TKA, s/p I&D on 08/25 Plan: Cont PT/OT DVT prophyaxis with heparin ID managing abx Hospitalists co-managing Will continue to follow
[2016-08-29] MEDS: Ondansetron ODT TAB* 4 MG PO PRN (17:46)
[2016-08-29] MEDS: Cetirizine* 10 MG TAB PO SCH (23:17)
[2016-08-30] MEDS: oxyCODONE TAB* 5 MG TAB PO PRN ×4 (05:28→22:30)
[2016-08-30] MEDS: Heparin VIAL(*) 5000 UNITS/ML VIAL (FIVE THOUSAND) SUBCUT SCH ×3 (05:29→22:26)
[2016-08-30] MEDS: Levothyroxine TAB* 100 MCG TAB PO SCH (05:29)
[2016-08-30 06:11] LABS: Hematocrit 29 % (35-47); Hemoglobin 9.4 g/dl (12.0-16.0); Mean Corpuscular HGB Conc 32 g/dl (31-36); Mean Corpuscular Hemoglobin 29 pg (27-31); Mean Corpuscular Volume 89 fL (80-97); Mean Platelet Volume 7 um3 (7.4-10.4); Red Blood Count 3.26 10^6/ul (4.0-5.4); Red Cell Distribution Width 14 % (10.5-15); White Blood Count 8.2 10^3/ul (3.5-10.8)
[2016-08-30 06:44] LABS: Albumin 2.7 g/dL (3.2-5.2); BUN/Creatinine Ratio 11.1 (8-20); C Reactive Protein 131.7 mg/L (< 5.00); EGFR African American 99.7 (>60); EGFR Non-African American 77.5 (>60); Globulin 4.5 g/dL (2-4); Potassium 4.2 mmol/L (3.5-5.0); Total Bilirubin 0.4 mg/dL (0.2-1.0); Total Protein 7.2 g/dL (6.4-8.9)
[2016-08-30] MEDS ORDERED: Vancomycin Trough Check NOTE FOLLOW UP ONE (08:00)
[2016-08-30] MEDS: Ondansetron ODT TAB* 4 MG PO PRN (08:22)
[2016-08-30] MEDS: Potassium & Sodium Phos 250MG* = 1 PACKET PO SCH ×3 (08:32→22:29)
[2016-08-30] MEDS: Vitamin THERAPEUTIC TAB PO SCH (08:33)
[2016-08-30] MEDS: Potassium Chlor TAB* 20 MEQ TAB.ER PO SCH ×4 (08:33→22:32)
[2016-08-30] MEDS: Senna TAB PO SCH ×2 (08:33→22:30)
[2016-08-30] MEDS: Montelukast Sodium TAB* 10 MG PO SCH (08:35)
[2016-08-30] MEDS: Omeprazole CAP* 20 MG PO SCH (08:35)
[2016-08-30] MEDS: Sertraline* 50 MG TAB PO SCH ×2 (08:35→22:33)
[2016-08-30] MEDS: Magnesium Oxide TAB* 400 MG PO SCH (08:36)
[2016-08-30] MEDS: guaiFENesin ER TAB 600 MG PO SCH ×2 (08:36→22:29)
[2016-08-30] MEDS: Ferrous Sulfate TAB* 325 MG PO SCH ×2 (08:36→22:31)
[2016-08-30] MEDS: Docusate CAP* 100 MG PO SCH ×2 (08:36→22:31)
[2016-08-30] MEDS: Morphine INJ* 2 MG/ML 1 ML CARPUJECT IV PRN (08:37)
[2016-08-30] MEDS: Fluticasone NASAL SPRAY 50MCG* 16 gm SPRAY BTL BOTH NARES SCH (08:37)
[2016-08-30] MEDS: Magic M W2 Ben/Maal/Nyst/Lido* 240 ML MOUTHWASH (alt formulation) SWISH SPIT SCH ×4 (08:38→22:40)
--- NOTE | 2016-08-30 09:04 | RAD ---
INDICATION: Pneumonia. COMPARISON: Comparison is made with multiple prior chest x-ray studies. The most recent exam is from August 24, 2016. TECHNIQUE: Dual-energy PA and lateral views of the chest were obtained. FINDINGS: The heart is within normal limits in size. Mediastinal and hilar contours appear within normal limits. There is a PICC present on the right side which demonstrates normal course. The catheter tip projects over the superior vena cava. There is a relatively dense peripheral infiltrate present in the right upper lobe which is slightly improved from the prior exam. There is volume loss in the right lung which is unchanged. The left lung appears clear and hyperinflated. There is flattening of the diaphragms consistent with chronic obstructive pulmonary disease. IMPRESSION: RIGHT UPPER LOBE INFILTRATE SLIGHTLY IMPROVED, RECOMMEND CONTINUE FOLLOW-UP CHEST X-RAYS TO RESOLUTION.
[2016-08-30] MEDS: Mometasone/Formoter 200/5 MDI INH SCH ×2 (09:06→19:56)
[2016-08-30] MEDS: Vancomycin(*) 750 MG in NS 0.9% 250 ML* 250 ML IVPB SCH ×2 (09:45→19:49)
--- NOTE | 2016-08-30 10:36 | PN ---
Progress Note - Progress Note SOAP: Subjective: Pt is doing well. PT is going well. Pain is well controlled and improved from yesterday. She denies CP, SOB, fever or chills. Objective: PE- 81 y/o F in NAD sitting comfortably in chair RLE- dressing changed, incision healing well, improved erythema and warmth, christina intact, calf soft nontender, full ankle ROM, NVI Vital Signs Temp Pulse Resp BP Pulse Ox 98.6 F 89 20 117/51 99 08/30/16 09:35 08/30/16 09:35 08/30/16 09:35 08/30/16 09:35 08/30/16 09:35 Laboratory Results - last 24 hr 08/30/16 08/30/16 08/30/16 05:40 05:40 08:30 WBC 8.2 RBC 3.26 L Hgb 9.4 L Hct 29 L MCV 89 MCH 29 MCHC 32 RDW 14 Plt Count 545 H D MPV 7 L Sodium 134 Potassium 4.2 Chloride 101 Carbon Dioxide 27 Anion Gap 6 BUN 8 Creatinine 0.72 Est GFR ( Amer) 99.7 Est GFR (Non-Af Amer) 77.5 BUN/Creatinine Ratio 11.1 Glucose 86 Calcium 9.0 Total Bilirubin 0.40 AST 16 ALT 7 Alkaline Phosphatase 57 C-Reactive Protein 131.70 H Total Protein 7.2 Albumin 2.7 L Globulin 4.5 H Albumin/Globulin Ratio 0.6 L Vancomycin Trough 15.3 Assessment: 81 y/o F admitted for MRSA PNA and R TKA infection, POD 5 s/p I&D Right knee Plan: WBAT RLE-Cont PT/OT heparin for DVT prophylaxis Abx per ID Hospitalist co-managing Will cont to follow
[2016-08-30] MEDS: oxyCODONE SR TAB(*) 40 MG TAB.SR PO SCH ×2 (11:05→22:29)
[2016-08-30] MEDS ORDERED: Prochlorperazine TAB* 10 MG ONE (12:57)
[2016-08-30] MEDS ORDERED: Prochlorperazine TAB* 10 MG PO PRN (13:06)
[2016-08-30] MEDS: Cetirizine* 10 MG TAB PO SCH (22:31)
[2016-08-31] MEDS: oxyCODONE TAB* 5 MG TAB PO PRN ×4 (04:28→22:17)
[2016-08-31] MEDS: Levothyroxine TAB* 100 MCG TAB PO SCH (06:24)
[2016-08-31] MEDS: Heparin VIAL(*) 5000 UNITS/ML VIAL (FIVE THOUSAND) SUBCUT SCH ×3 (06:24→21:52)
[2016-08-31] MEDS: Vancomycin(*) 750 MG in NS 0.9% 250 ML* 250 ML IVPB SCH ×2 (08:40→21:50)
[2016-08-31] MEDS: Fluticasone NASAL SPRAY 50MCG* 16 gm SPRAY BTL BOTH NARES SCH (08:43)
[2016-08-31] MEDS: Magic M W2 Ben/Maal/Nyst/Lido* 240 ML MOUTHWASH (alt formulation) SWISH SPIT SCH ×3 (08:43→17:31)
[2016-08-31] MEDS: Potassium & Sodium Phos 250MG* = 1 PACKET PO SCH ×3 (08:44→21:54)
[2016-08-31] MEDS: guaiFENesin ER TAB 600 MG PO SCH ×2 (08:44→21:53)
[2016-08-31] MEDS: Magnesium Oxide TAB* 400 MG PO SCH (08:45)
[2016-08-31] MEDS: Docusate CAP* 100 MG PO SCH ×2 (08:45→21:52)
[2016-08-31] MEDS: Senna TAB PO SCH ×2 (08:46→21:53)
[2016-08-31] MEDS: Sertraline* 50 MG TAB PO SCH ×2 (08:47→21:54)
[2016-08-31] MEDS: Potassium Chlor TAB* 20 MEQ TAB.ER PO SCH ×4 (08:48→21:54)
[2016-08-31] MEDS: Omeprazole CAP* 20 MG PO SCH (08:48)
[2016-08-31] MEDS: Montelukast Sodium TAB* 10 MG PO SCH (08:48)
[2016-08-31] MEDS: Vitamin THERAPEUTIC TAB PO SCH (08:48)
[2016-08-31] MEDS: Ferrous Sulfate TAB* 325 MG PO SCH ×2 (08:49→21:53)
[2016-08-31] MEDS: oxyCODONE SR TAB(*) 40 MG TAB.SR PO SCH ×2 (10:17→21:52)
[2016-08-31] MEDS: Mometasone/Formoter 200/5 MDI INH SCH ×2 (10:43→20:41)
[2016-08-31] MEDS: Ondansetron ODT TAB* 4 MG PO PRN (11:51)
[2016-08-31 12:09] LABS: Urine Bilirubin Negative (Negative); Urine Glucose Negative (Negative); Urine Nitrite Negative (Negative)
[2016-08-31] MEDS: Cetirizine* 10 MG TAB PO SCH (21:52)
[2016-09-01] MEDS: oxyCODONE TAB* 5 MG TAB PO PRN ×4 (05:31→22:27)
[2016-09-01] MEDS: Levothyroxine TAB* 100 MCG TAB PO SCH (05:32)
[2016-09-01] MEDS: Heparin VIAL(*) 5000 UNITS/ML VIAL (FIVE THOUSAND) SUBCUT SCH ×4 (05:33→20:11)
[2016-09-01] MEDS: Magic M W2 Ben/Maal/Nyst/Lido* 240 ML MOUTHWASH (alt formulation) SWISH SPIT SCH ×5 (05:33→20:12)
[2016-09-01 05:53] LABS: Hematocrit 27 % (35-47); Hemoglobin 8.9 g/dl (12.0-16.0); Mean Corpuscular HGB Conc 33 g/dl (31-36); Mean Corpuscular Hemoglobin 29 pg (27-31); Mean Corpuscular Volume 88 fL (80-97); Mean Platelet Volume 7 um3 (7.4-10.4); Red Blood Count 3.12 10^6/ul (4.0-5.4); Red Cell Distribution Width 14 % (10.5-15); White Blood Count 7.3 10^3/ul (3.5-10.8)
[2016-09-01 06:09] LABS: BUN/Creatinine Ratio 13.3 (8-20); C Reactive Protein 90.46 mg/L (< 5.00); Calcium 9.1 mg/dL (8.6-10.3); EGFR African American 84.6 (>60); EGFR Non-African American 65.8 (>60); Potassium 4.3 mmol/L (3.5-5.0)
[2016-09-01] MEDS: Vancomycin(*) 750 MG in NS 0.9% 250 ML* 250 ML IVPB SCH ×2 (09:02→20:11)
[2016-09-01] MEDS: Potassium & Sodium Phos 250MG* = 1 PACKET PO SCH ×3 (09:04→20:10)
[2016-09-01] MEDS: Montelukast Sodium TAB* 10 MG PO SCH (09:04)
[2016-09-01] MEDS: Ferrous Sulfate TAB* 325 MG PO SCH ×2 (09:05→20:10)
[2016-09-01] MEDS: Potassium Chlor TAB* 20 MEQ TAB.ER PO SCH ×4 (09:05→20:09)
[2016-09-01] MEDS: Vitamin THERAPEUTIC TAB PO SCH (09:05)
[2016-09-01] MEDS: Senna TAB PO SCH ×2 (09:05→20:10)
[2016-09-01] MEDS: guaiFENesin ER TAB 600 MG PO SCH ×2 (09:05→20:10)
[2016-09-01] MEDS: Docusate CAP* 100 MG PO SCH ×2 (09:05→20:11)
[2016-09-01] MEDS: Sertraline* 50 MG TAB PO SCH ×2 (09:05→20:10)
[2016-09-01] MEDS: Magnesium Oxide TAB* 400 MG PO SCH (09:05)
[2016-09-01] MEDS: Omeprazole CAP* 20 MG PO SCH (09:05)
[2016-09-01] MEDS: Mometasone/Formoter 200/5 MDI INH SCH ×2 (09:07→19:43)
--- NOTE | 2016-09-01 09:29 | PN ---
Progress Note - Progress Note SOAP: Subjective: pt OOB to chair with minimal knee pain Objective: Vital Signs Temp Pulse Resp BP Pulse Ox 97.7 F 85 16 131/58 97 09/01/16 08:10 08/31/16 23:45 09/01/16 08:00 08/31/16 23:45 08/31/16 23:45 Laboratory Last Values WBC 7.3 10^3/ul (3.5-10.8) 09/01/16 05:34 RBC 3.12 10^6/ul (4.0-5.4) L 09/01/16 05:34 RBC (Retic) 3.22 10^6/ul (4.6-6.2) L 08/12/16 05:10 Hgb 8.9 g/dl (12.0-16.0) L 09/01/16 05:34 Hct 27 % (35-47) L 09/01/16 05:34 HCT (Retic) 28 % (35-47) L 08/12/16 05:10 MCV 88 fL (80-97) 09/01/16 05:34 MCH 29 pg (27-31) 09/01/16 05:34 MCHC 33 g/dl (31-36) 09/01/16 05:34 RDW 14 % (10.5-15) 09/01/16 05:34 Plt Count 462 10^3/ul (150-450) H D 09/01/16 05:34 MPV 7 um3 (7.4-10.4) L 09/01/16 05:34 Immature Gran % (Auto) 3 % (0-9) 08/16/16 05:42 Neut % (Auto) 81.3 % (38-83) 08/17/16 06:30 Lymph % (Auto) 10.5 % (25-47) L 08/17/16 06:30 [place] % (Auto) 5.8 % (1-9) 08/17/16 06:30 Eos % (Auto) 2.1 % (0-6) 08/17/16 06:30 Baso % (Auto) 0.3 % (0-2) 08/17/16 06:30 Absolute Neuts (auto) 13.0 10^3/ul (1.5-7.7) H 08/17/16 06:30 Absolute Lymphs (auto) 1.7 10^3/ul (1.0-4.8) 08/17/16 06:30 Absolute Monos (auto) 0.9 10^3/ul (0-0.8) H 08/17/16 06:30 Absolute Eos (auto) 0.3 10^3/ul (0-0.6) 08/17/16 06:30 Absolute Basos (auto) 0 10^3/ul (0-0.2) 08/17/16 06:30 Absolute Nucleated RBC 0.01 10^3/ul 08/17/16 06:30 Neutrophils % 71 % (38-83) 08/16/16 05:42 Band Neutrophils % 2 % (0-8) 08/16/16 05:42 Lymphocytes % 18 % (25-47) L 08/16/16 05:42 Monocytes % 6 % (0-13) 08/16/16 05:42 Eosinophils % 2 % (0-6) 08/16/16 05:42 Myelocytes % 1 % (0-1) 08/16/16 05:42 Nucleated RBC % 0.1 08/17/16 06:30 Normal RBC Morphology Normal (Normal) 08/16/16 05:42 ESR 112 mm/Hr (0-40) H 08/09/16 14:25 Retic Count, Calc 0.9 % (0.5-1.5) 08/12/16 05:10 Corrected Retic Count 0.6 % (0.5-1.5) 08/12/16 05:10 Retic Shift Factor 2.0 08/12/16 05:10 Retic Production Index 0.30 08/12/16 05:10 Immature Retic Fraction 0.40 08/12/16 05:10 Mean Retic Volume 97.5 08/12/16 05:10 INR (Anticoag Therapy) 1.09 (0.89-1.11) 08/09/16 15:00 APTT 30.6 seconds (26.0-36.3) 08/09/16 15:00 ABG pH 7.39 (7.35-7.45) 08/11/16 19:48 ABG pCO2 37 mmHg (35-45) 08/11/16 19:48 ABG pO2 82 mmHg (80-100) 08/11/16 19:48 ABG HCO3 23.1 mmol/L (19-31) 08/11/16 19:48 ABG O2 Saturation 96.9 % (95-98) 08/11/16 19:48 ABG Base Excess -2.3 (-2.0-2.0) L 08/11/16 19:48 Sodium 134 mmol/L (133-145) 09/01/16 05:34 Potassium 4.3 mmol/L (3.5-5.0) 09/01/16 05:34 Chloride 102 mmol/L (101-111) 09/01/16 05:34 Carbon Dioxide 27 mmol/L (22-32) 09/01/16 05:34 Anion Gap 5 mmol/L (2-11) 09/01/16 05:34 BUN 11 mg/dL (6-24) 09/01/16 05:34 Creatinine 0.83 mg/dL (0.51-0.95) 09/01/16 05:34 Est GFR ( Amer) 84.6 (>60) 09/01/16 05:34 Est GFR (Non-Af Amer) 65.8 (>60) 09/01/16 05:34 BUN/Creatinine Ratio 13.3 (8-20) 09/01/16 05:34 Glucose 89 mg/dL (70-100) 09/01/16 05:34 Lactic Acid 0.7 mmol/L (0.5-2.0) 08/11/16 17:15 Uric Acid 2.9 mg/dL (2.3-6.6) 08/12/16 05:10 Calcium 9.1 mg/dL (8.6-10.3) 09/01/16 05:34 Phosphorus 4.1 mg/dL (2.5-5.0) 08/24/16 06:11 Magnesium 1.7 mg/dL (1.9-2.7) L 08/24/16 06:11 Total Bilirubin 0.40 mg/dL (0.2-1.0) 08/30/16 05:40 AST 16 U/L (13-39) 08/30/16 05:40 ALT 7 U/L (7-52) 08/30/16 05:40 Alkaline Phosphatase 57 U/L (34-104) 08/30/16 05:40 Ammonia 52 mol/L (16-53) 08/11/16 14:35 Troponin I 0.05 ng/mL (<0.04) H* 08/10/16 07:38 C-Reactive Protein 90.46 mg/L (< 5.00) H 09/01/16 05:34 Total Protein 7.2 g/dL (6.4-8.9) 08/30/16 05:40 Albumin 2.7 g/dL (3.2-5.2) L 08/30/16 05:40 Globulin 4.5 g/dL (2-4) H 08/30/16 05:40 Albumin/Globulin Ratio 0.6 (1-3) L 08/30/16 05:40 Amylase 26 U/L (29-103) L 08/18/16 06:30 Lipase 36 U/L (11.0-82.0) 08/18/16 06:30 Procalcitonin 1.8 ng/mL (<0.6) H 08/14/16 09:50 TSH 0.95 mcIU/mL (0.34-5.60) 08/12/16 05:10 Urine Color Yellow 08/31/16 11:50 Urine Appearance Clear 08/31/16 11:50 Urine pH 7.0 (5-9) 08/31/16 11:50 Ur Specific [place] 1.006 (1.010-1.030) L 08/31/16 11:50 Urine Protein Negative (Negative) 08/31/16 11:50 Urine Ketones Negative (Negative) 08/31/16 11:50 Urine Blood Negative (Negative) 08/31/16 11:50 Urine Nitrate Negative (Negative) 08/31/16 11:50 Urine Bilirubin Negative (Negative) 08/31/16 11:50 Urine Urobilinogen Negative (Negative) 08/31/16 11:50 Ur Leukocyte Esterase Negative (Negative) 08/31/16 11:50 Urine WBC (Auto) 3+(>20/hpf) (Absent) H 08/10/16 09:03 Urine RBC (Auto) 2+(6-10/hpf) (Absent) H 08/10/16 09:03 Ur Squamous Epith Cells Present (Absent) H 08/10/16 09:03 Urine Bacteria 1+ (Absent) H 08/10/16 09:03 Hyaline Casts Present (Absent) H 08/10/16 09:03 Urine Glucose Negative (Negative) 08/31/16 11:50 Urine Ascorbic Acid * (Negative) H 08/10/16 09:03 Fluid Source Synovial fluid 08/11/16 15:35 Fluid Volume 4 mL 08/11/16 15:35 Fluid Color Yellow 08/11/16 15:35 Fluid Appearance Cloudy 08/11/16 15:35 Fluid WBC 56296 /mcL (0-389938) 08/11/16 15:35 Fluid RBC 37557 /mcL 08/11/16 15:35 Fluid Tot Cell Count 100 08/11/16 15:35 Fluid Neutrophils 97 % 08/11/16 15:35 Fluid Lymphocytes 2 % 08/11/16 15:35 Fluid Monocytes 1 % 08/11/16 15:35 Fluid Other Cells 3 08/11/16 15:35 Fluid Cell Count Rvw By 08/11/16 15:35 Fluid Crystals None seen 08/11/16 15:35 Fluid Comment 08/11/16 15:35 Vancomycin Trough 15.3 mcg/mL 08/30/16 08:30 Random Vancomycin 7.2 mcg/mL 08/10/16 14:47 Blood Type B Positive 08/24/16 08:30 Antibody Screen Negative 08/24/16 08:30 Crossmatch See Detail 08/24/16 08:30 incision: c/d PE:NVI Assessment: s/p I & D right knee Plan: 1) cont IV aBX 2) Continue PT/OT 3) Continue DVT prophylaxis
[2016-09-01] MEDS: oxyCODONE SR TAB(*) 40 MG TAB.SR PO SCH ×2 (10:15→22:22)
[2016-09-01] MEDS: Fluticasone NASAL SPRAY 50MCG* 16 gm SPRAY BTL BOTH NARES SCH (10:16)
--- NOTE | 2016-09-01 14:36 | PN ---
Progress Note - Progress Note SOAP: Subjective: DOS:09/01/16 CC: knee infection HPI: 81 year old woman admitted with right knee pain that was worse with walking had been that way a few days, nothing helped. Found to have MRSA PNA and right knee infection, then washout. No fever, rash, or diarrhea. Cough is gone. Right knee less painful, doesn't hurt with ambulation. Has nausea, no abd pain or vomiting. Objective: [] Vital Signs Temp 36.5 C 09/01/16 08:10 Pulse 85 09/01/16 08:03 Resp 18 09/01/16 12:15 BP 146/71 09/01/16 08:03 Pulse Ox 97 09/01/16 08:03 Intake & Output 08/31/16 09/01/16 09/01/16 18:59 06:59 18:59 Intake Total 2004 1835 853 Output Total 1500 1800 1800 Balance 505 35 -947 Intake: IVPB 775 265 393 ABX - VANCOMYCIN 250 265 268 LR 525 125 Oral 1230 1570 460 Output: Urine 1500 1800 1800 Other: # Voids 2 2 Gen:Awake, NAD Neck:supple LN: no visible or palpable LN Neuro: OX3, CN 2-12 intact HEENT:MMD, no thrush Heart:RRR no murmur Lungs: no wheeze, decreased BS and egophany Right upper lung field Abd:+BS NTND soft Skin: no rash MSK: right wrist warmth and mild edema, non tender, normal ROM, right knee incision intact mild edema Laboratory Results - last 24 hr 09/01/16 09/01/16 05:34 05:34 WBC 7.3 RBC 3.12 L Hgb 8.9 L Hct 27 L MCV 88 MCH 29 MCHC 33 RDW 14 Plt Count 462 H D MPV 7 L Sodium 134 Potassium 4.3 Chloride 102 Carbon Dioxide 27 Anion Gap 5 BUN 11 Creatinine 0.83 Est GFR ( Amer) 84.6 Est GFR (Non-Af Amer) 65.8 BUN/Creatinine Ratio 13.3 Glucose 89 Calcium 9.1 C-Reactive Protein 90.46 H Assessment: 1. Infected right prosthetic knee; culture negative, suspect MRSA or Coag neg Staph s/p I&D 2. right wrist inflammation ?gout, pseudogout 3. CKD, stage 2 Plan: 1. continue vancomycin goal trough 15-20, day 24/42, tolerating it well. Eventual rifampin and lifelong suppresion. Awaiting outpatient site for infusion.
[2016-09-01] MEDS: Acetaminophen TAB* 325 MG PO PRN (14:49)
[2016-09-01] MEDS ORDERED: oxyCODONE SR TAB(*) 40 MG TAB.SR PO SCH (17:00)
[2016-09-01] MEDS: Ondansetron ODT TAB* 4 MG PO PRN (17:49)
[2016-09-01] MEDS: Cetirizine* 10 MG TAB PO SCH (20:10)
[2016-09-02] MEDS: Levothyroxine TAB* 100 MCG TAB PO SCH (04:56)
[2016-09-02] MEDS: Heparin VIAL(*) 5000 UNITS/ML VIAL (FIVE THOUSAND) SUBCUT SCH ×2 (04:58→11:20)
[2016-09-02] MEDS: Methocarbamol TAB* 500 MG PO PRN (05:13)
[2016-09-02] MEDS: oxyCODONE TAB* 5 MG TAB PO PRN ×2 (06:07→11:17)
[2016-09-02] MEDS: Vancomycin(*) 750 MG in NS 0.9% 250 ML* 250 ML IVPB SCH (08:26)
[2016-09-02] MEDS: Fluticasone NASAL SPRAY 50MCG* 16 gm SPRAY BTL BOTH NARES SCH (08:29)
[2016-09-02] MEDS: Senna TAB PO SCH (08:29)
[2016-09-02] MEDS: Magnesium Oxide TAB* 400 MG PO SCH (08:30)
[2016-09-02] MEDS: Vitamin THERAPEUTIC TAB PO SCH (08:30)
[2016-09-02] MEDS: Omeprazole CAP* 20 MG PO SCH (08:30)
[2016-09-02] MEDS: Docusate CAP* 100 MG PO SCH (08:30)
[2016-09-02] MEDS: Sertraline* 50 MG TAB PO SCH (08:31)
[2016-09-02] MEDS: guaiFENesin ER TAB 600 MG PO SCH (08:31)
[2016-09-02] MEDS: Ferrous Sulfate TAB* 325 MG PO SCH (08:31)
[2016-09-02] MEDS: Montelukast Sodium TAB* 10 MG PO SCH (08:31)
[2016-09-02] MEDS: Potassium Chlor TAB* 20 MEQ TAB.ER PO SCH ×2 (08:31→13:07)
[2016-09-02] MEDS: Potassium & Sodium Phos 250MG* = 1 PACKET PO SCH ×2 (08:32→13:08)
[2016-09-02] MEDS: Magic M W2 Ben/Maal/Nyst/Lido* 240 ML MOUTHWASH (alt formulation) SWISH SPIT SCH ×2 (08:33→13:08)
[2016-09-02] MEDS: Ondansetron ODT TAB* 4 MG PO PRN (08:33)
[2016-09-02 08:38] VITALS: BP 150/65
[2016-09-02] MEDS: Mometasone/Formoter 200/5 MDI INH SCH (09:00)
[2016-09-02] MEDS: oxyCODONE SR TAB(*) 40 MG TAB.SR PO SCH (10:10)
--- NOTE | 2016-09-02 12:24 | TRS ---
TRANSFER SUMMARY: DATE OF ADMISSION: 08/09/16 DATE OF TRANSFER: 09/02/16 TRANSFER DIAGNOSES: 1. Pneumonia with Methicillin-resistant Staph aureus with sepsis. 2. 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 3. ALLERGIES TO CIPROFLOXACIN, ERYTHROMYCIN, PENICILLIN, SULFA, TETRACYCLINE, ADHESIVE, IODINE. 4. Hypothyroidism. 5. Ventral hernia. 6. Delirium. 7. Osteoarthritis. 8. Asthma. 9. Hypertension. 10. Low back pain. 11. Tremor. 12. Stomatitis. 13. History of anxiety/depression. 14. Status post bilateral knee replacement. 15. Status post colon resection. 16. Status post bilateral carpal tunnel release. 17. Status post bilateral cataract surgery. 18. Status post hysterectomy with aortic rupture at the time of hysterectomy. 19. Spinal stenosis. 20. History of vertigo. 21. History of aortic rupture at the time of hysterectomy. 22. History of pulmonary embolism in 2011. 23. Sepsis. 24. Anemia of acute illness. 25. Stress cardiac ischemia. HISTORY: Zaida Duke is a 81-year-old woman admitted with sepsis on 08/09/16 with MRSA pneumonia and an infected right total knee arthroplasty. Please see the dictated admission note for details of the present illness, past medical history, family history, social and personal history, review of systems and physical examination. LABORATORY DATA: CBC on admission, WBC 10.8, H and H 11/33, MCV 88, PLT 250K, white count subsequently went up to 25.3 on 08/13 was 7.3 on 09/01/16. Hemoglobin went as low as 8.3 on 08/20/16, was up to 9.6 on 08/27/16, was 8.9 on 09/01/16. INR 1.09, PTT 30.6 (normal) on 08/09/16. ABGs on 08/11/16, pH 7.39 , PCO2 of 37, PO2 of 82. Chemistries on admission, sodium 127, potassium 2.8, chloride 95, CO2 of 23, creatinine 1.08, BUN 18, glucose 101. CRP 351.78. Albumin 3.1, otherwise within normal limits. Lactic acid was 1, repeat 0.9, troponin Is repeat was 0.05 on 08/10/16. CRP went up as high as 391.28 on 08/11, subsequently came down gradually was 90.46 on 09/01/16. Urinalysis on 09/25, cari, cloudy, specific gravity 1.026, pH 5, protein 1+, wbc's 3+, rbc's 2+, bacteria 1+. UA on 08/31/16 was normal. Synovial fluid on 08/11/16 volume 4, yellow, cloudy, WBC is 66,864, RBC is 29,695, cell count 100, neutrophils 97 , lymphocytes 2, monocytes 1 other cells 3, acute inflammation present. Vancomycin trough ranged from 15.3 on 08/30/16, the highest was 21 on 08/21/16. During hospitalization, she also had a TSH which was normal. Procalcitonin which was 5.5 on 08/12/16 and 1.8 on 08/14/16. Amylase and lipase were normal. Ammonia was normal at 52. Magnesium was slightly low at 127, on 08/24/16 as high as 2 on 08/15/16. Phosphorous had been slightly low 2 was up to 4.1 on . Uric acid was normal at 2.9 and the chemistries prior to discharge on , sodium 134, potassium 4.3, chloride 102, CO2 of 27, BUN and creatinine 11/0.83, glucose 89. Microbiology studies: Blood cultures x2 on 08/09/16 were no growth. Sputum showed MRSA, yeast, normal althea. PCR on the 17synovial fluid was negative. Wound culture/tissue culture on 08/25/16 was no growth. Urine culture on and on 08/29/16 were no growth. Blood type was B positive. She had 1 unit transfused on 08/26/16. IMAGING: Chest x-ray on 08/09/16 showed a right upper lobe infiltrate. Knee x- ray on 08/09/16 showed normal prosthesis. Chest CT on 08/09/16 showed infiltrate in the right upper lobe. Brain CT on 08/11/16 was unremarkable. Repeat chest x-rays on 08/12/16, 08/14/16, 08/27/16, 08/24/16 showed right upper lobe infiltrate by 08/24/16 had improved. Nuclear bone scan on 08/17/16 showed no evidence for discitis or osteomyelitis of the spine. Nuclear cardiac stress test on 08/21/16 showed minimal lateral wall fixed defect, Normal ejection fraction, low risk. Knee x-rays on 08/25/16 showed suggestion of small joint effusion. Repeat knee x- ray on later in the day showed anatomic alignment of the right knee prosthesis. Chest x-ray 08/30/16 again showed slight improvement in chest x-ray. Pathology report 08/25/16 OF right knee articular surface excision showed an articulate surface right knee, plastic tibial implant and synovium right knee showed irregular rubbery soft tissue fragments with small amount of fibropurulent exudate, showed acute on chronic tenosynovitis. EKG on 08/09/16 showed normal sinus rhythm, probable left atrial enlargement, abnormal inferior Q waves, borderline prolonged QT interval. EKG 08/10/16 showed no significant changes. Transthoracic echocardiogram 08/12/16 showed LVH , EF 55 to 60%, mild to moderate left atrial dilatation, mild mitral regurgitation, moderate tricuspid regurgitation, mild pulmonary hypertension, no evidence of vegetations, but only fair visualization of the valves. Operative report 08/25/16 Dr. Wynn was a right knee incision and drainage, synovectomy, exchange of the articular surface and irrigation of the knee. HOSPITAL COURSE: The patient was initially admitted and started on cefepime and vancomycin. She had had a four day history of fever. She had been started on Tamiflu. This was not continued as it was clear there was another alternate diagnosis. She had a headache on the day following admission. She also complained of right chest and back pain, right leg pain. She was coughing up brown mucus. She had continued, but diminished fever. She was on DVTs prophylaxis with heparin. She was a full code. Pain medication, morphine was used in addition to her oxycodone. She normally takes oxycodone for back pain. She was seen in consultation by Orthopedics. They recommended washing out her knee and replacing the articular surface. The family was hesitant until her medical condition stabilized. This was finally done on 08/25/16 (see above) . Initially, she was quite delirious. On 08/11/16 with worsening chest x-ray and delirium, she was moved to the intensive care unit. She did have some myoclonic jerking. This was felt perhaps due to the cefepime, which was discontinued once the MRSA diagnosis was established. This was discontinued on 08/12/16. She did become anemic and she was transfused in the perioperative period at the time of her knee surgery. She gradually did feel better and was able to eventually come out of the ICU. She did have increased pain after her knee surgery, which was managed. She was seen in consultation by Dr. Kulkarni, who felt that she would need 6 weeks of IV vancomycin and probably lifelong therapy with antibiotics thereafter. Prior to her surgery, she did have a nuclear cardiac stress test because of the stress ischemia she had had at the time of admission. This was low risk and was felt that surgery could be done ( see above). By the time of discharge, she was feeling better. She had some continued nausea, which is a chronic problem for her even at home. She had persistent pain, which is usual in her back. Her knee is feeling better. She is to have christina out of her knee on 09/08/16. She will have a physician at [facility], probably Dr. Dobson, and she will be following up with Dr. Kulkarni the week of 09/14/16. She should call Dr. Wynn's office at some point to figure out when he wants to see her back as well. She will be following up with me after she is discharged from the half-way. Her allergies at the time of discharge are ADHESIVE TAPE, CIPRO, ERYTHROMYCIN, IODINE, PENICILLIN, SULFA, TETRACYCLINE. DIET: Regular. MEDICATIONS: Are as follows: 1. Vancomycin 1250 mg IV daily. 2. Levothyroxine 100 mcg daily. 3. Montelukast 10 mg daily. 4. Dulera 200/5 inhalation twice a day. 5. Albuterol 2 puffs inhalation every 4 hours as needed for asthma. 6. Ondansetron 8 mg p.o. q.8 h. p.r.n. nausea. 7. Bentyl 10 mg p.o. t.i.d. p.r.n. intestinal spasm. 8. Fluticasone 2 sprays each nostril daily for rhinitis. 9. Meclizine 25 mg p.o. q.i.d. p.r.n. dizziness. 10. Potassium chloride 20 mEq p.o. four times a day. 11. Magnesium 500 mg p.o. four times a day. 12. Sertraline 50 mg p.o. b.i.d. 13. Oxycodone extended release 40 mg every 12 hours. 14. Oxycodone 10 mg p.o. q.4 h. p.r.n. pain. 15. Prochlorperazine 10 mg p.o. q.6 h. p.r.n. nausea. 16. MultiVites 1 p.o. q. day. 17. Senna 8.6 mg 1 to 5 daily as needed for constipation. 18. Triam/HCTZ 37.5/25 p.o. q. day. 19. Methocarbamol 500 mg 1 to 2 four times a day as needed for muscle spasm. 20. Lovenox 30 mg subcutaneous q.12h. For 4 weeks for DVT prophylaxis. 21. Colace 100 mg p.o. b.i.d. She is to have physical therapy. CC: [facility]; Dr. Kulkarni; Dr. Grisel [place]. [id number]/CPS #: [id number] MTDD
== END 2016-09-02 13:35 | disposition home health service (06) | DRG 466 ==
LOC: ED 13:49 → MED 17:00 → ICU 08-12 00:30 → SSU 08-15 12:47 → MED 08-18 13:08
PROVIDERS: ADMIT Internal Medicine; ATTEND Internal Medicine Geriatric Medicine
PROC: 0S9C3ZX Drainage of Right Knee Joint, Percutaneous Approach, Diagnostic (ICD-10-PCS; 2016-08-11)
PROC: 02HV33Z Insertion of Infusion Device into Superior Vena Cava, Percutaneous Approach (ICD-10-PCS; 2016-08-13)
PROC: 0SPV0JZ Removal of Synthetic Substitute from Right Knee Joint, Tibial Surface, Open Approach (ICD-10-PCS; 2016-08-25)
PROC: 0SBC0ZZ Excision of Right Knee Joint, Open Approach (ICD-10-PCS; 2016-08-25)
PROC: 0S9C0ZZ Drainage of Right Knee Joint, Open Approach (ICD-10-PCS; 2016-08-25)
PROC: 0SRV0JZ Replacement of Right Knee Joint, Tibial Surface with Synthetic Substitute, Open Approach (ICD-10-PCS; principal; 2016-08-25 11:30)
PROC: 30233N1 Transfusion of Nonautologous Red Blood Cells into Peripheral Vein, Percutaneous Approach (ICD-10-PCS; 2016-08-26)
DX: T84.53XA Infection and inflammatory reaction due to internal right knee prosthesis, initial encounter (principal); J15.212 Pneumonia due to Methicillin resistant Staphylococcus aureus; J96.01 Acute respiratory failure with hypoxia; A41.9 Sepsis, unspecified organism; E83.42 Hypomagnesemia; D62 Acute posthemorrhagic anemia; I27.2 Other secondary pulmonary hypertension; E03.9 Hypothyroidism, unspecified; J45.909 Unspecified asthma, uncomplicated; K21.9 Gastro-esophageal reflux disease without esophagitis; I12.9 Hypertensive chronic kidney disease with stage 1 through stage 4 chronic kidney disease, or unspecified chronic kidney disease; M54.5 Low back pain; N18.2 Chronic kidney disease, stage 2 (mild); K43.9 Ventral hernia without obstruction or gangrene; M19.90 Unspecified osteoarthritis, unspecified site; M41.9 Scoliosis, unspecified; F41.9 Anxiety disorder, unspecified; F32.9 Major depressive disorder, single episode, unspecified; G89.29 Other chronic pain; D47.3 Essential (hemorrhagic) thrombocythemia; K13.70 Unspecified lesions of oral mucosa; R11.0 Nausea; Z88.1 Allergy status to other antibiotic agents; Z88.0 Allergy status to penicillin; Z88.2 Allergy status to sulfonamides; Z91.048 Other nonmedicinal substance allergy status; Z96.653 Presence of artificial knee joint, bilateral; Z86.718 Personal history of other venous thrombosis and embolism; Z86.711 Personal history of pulmonary embolism; Z98.42 Cataract extraction status, left eye; Z98.41 Cataract extraction status, right eye; Z82.49 Family history of ischemic heart disease and other diseases of the circulatory system; G25.3 Myoclonus; Z90.710 Acquired absence of both cervix and uterus; M65.9 Synovitis and tenosynovitis, unspecified; I08.1 Rheumatic disorders of both mitral and tricuspid valves; R51 Headache; Z79.2 Long term (current) use of antibiotics; Y83.8 Other surgical procedures as the cause of abnormal reaction of the patient, or of later complication, without mention of misadventure at the time of the procedure; T36.1X5A Adverse effect of cephalosporins and other beta-lactam antibiotics, initial encounter
CPT/HCPCS: 36415; 70450; 71010; 71020; 71250; 78315; 78452; 80048; 80053; 80202; 81003; 81015; 82140; 82150; 82803; 83605; 83690; 83735; 84100; 84145; 84443; 84484; 84550; 85014; 85018; 85025; 85027; 85045; 85610; 85652; 85730; 86140; 86850; 86900; 86901; 86922; 87040; 87070; 87073; 87077; 87086; 87186; 87205; 87640; 87641; 88300; 88305; 89051; 89060; 93005; 93017; 93306; 94640; 94668; 94760; 94762; 96374; 96375; 96376; 99285; A9270-GY; A9502; A9503; C1751; C1776; J0330; J0692; J1100; J1644; J2250; J2270; J2704; J2785; J2997; J3010; J3370; J3475; P9040; Q0164

== ENCOUNTER 2017-01-14 00:33 | Emergency (ER) | payer MEDICARE ==
[2017-01-14] MEDS ORDERED: HYDROmorphone* 1 MG/ML 1 ML SYR IV ONE ×2 (00:47→00:49)
[2017-01-14] MEDS ORDERED: fentaNYL* 50 MCG/ML 2 ML VIAL (100 MCG VIAL) ONE (01:30)
[2017-01-14] MEDS ORDERED: Midazolam* 1 MG/ML 10 ML VIAL (10 MG) ONE (01:31)
[2017-01-14] MEDS ORDERED: Flumazenil* 0.1 MG/ML 5 ML MDV ONE (01:31)
[2017-01-14] MEDS ORDERED: Ondansetron INJ* 2 MG/ML VIAL ONE (01:31)
[2017-01-14] MEDS ORDERED: Naloxone* 0.4 MG/ML 1 ML VIAL ONE (01:31)
[2017-01-14] MEDS ORDERED: oxyCODONE TAB* 5 MG TAB PO ONE (04:45)
[2017-01-14] MEDS ORDERED: oxyCODONE TAB* 5 MG TAB ONE (04:55)
[2017-01-14 05:30] VITALS: BP 132/60
--- NOTE | 2017-01-14 05:35 | ED ---
Lyndon Barajas Salem, scribed for Justice Negro MD on 01/14/17 at 0050 . Adult Trauma - HPI Summary HPI Summary: Patient is a 81 y/o F who presents to the ED per EMS s/p a fall. She reports left shoulder pain and states that she can no longer move her fingers. Pt has no other complaints. PMHx of HTN and back problems. - History of Current Complaint Chief Complaint: Sandro Stated Complaint: SHOULDER DISLOCATION Time Seen by Provider: 01/14/17 00:40 Hx Obtained From: Patient Mechanism of Injury: Fall Ambulatory at the Scene: Yes Loss of Consciousness: no loss of consciousness Force: Medium Restraints: None Onset/Duration: Started Hours Ago, Traumatic, Still Present Onset of Pain: Immediate Onset Severity: Moderate Current Severity: Moderate Pain Intensity: 10 Pain Scale Used: 0-10 Numeric Location: Extremities - LUE. Aggravating Factor(s): Movement Alleviating Factor(s): Rest Associated Signs & Symptoms: Positive: Negative - Additional Pertinent History Primary Care Physician: [id number] - Allergy/Home Medications Allergies/Adverse Reactions: Allergies Allergy/AdvReac Type Severity Reaction Status Date / Time Adhesive Tape Allergy Rash Verified 10/19/16 15:07 Ciprofloxacin [From Cipro] AdvReac Vomiting Verified 10/19/16 15:07 Erythromycin AdvReac Vomiting Verified 10/19/16 15:07 Iodine AdvReac Anaphylatic Verified 10/19/16 15:07 Shock Penicillins AdvReac Hives/Diff. Verified 10/19/16 15:07 Breathing/I tching Sulfa Drugs AdvReac Nausea Verified 10/19/16 15:07 Tetracycline AdvReac Nausea Verified 10/19/16 15:07 CT CONTRAST Allergy Severe HIVES/DIFFICULTY Uncoded 10/19/16 15:07 BREATHING PMH/Surg Hx/FS Hx/Imm Hx Endocrine/Hematology History: Reports: Hx Thyroid Disease, Hx Anemia Denies: Hx Diabetes Cardiovascular History: Reports: Hx Angina, Hx Deep Vein Thrombosis, Hx Embolism , Hx Hypertension, Other Cardiovascular Problems/Disorders Denies: Hx Coronary Artery Disease, Hx Myocardial Infarction, Hx Pacemaker/ ICD Respiratory History: Reports: Hx Asthma, Hx Pneumonia, Hx Pulmonary Embolism - 2012 AFTER HAVING PNEUMONIA, Hx Seasonal Allergies, Other Respiratory Problems/ Disorders - PNEUMONIA- >2 YEARS AGO GI History: Reports: Hx Gastroesophageal Reflux Disease, Hx Hiatal Hernia Denies: Hx Jaundice Comment Only: Other GI Disorders - hernia repair x3, colon resection History: Reports: Other Problems/Disorders - BLADDER INFECTION, CKD stage II - pt. denies CKD, per H+P CKD Denies: Hx Renal Disease Musculoskeletal History: Reports: Hx Arthritis, Hx Back Problems, Hx Gout, Hx Orthopedic Injury - Recent infection RTK, Hx Scoliosis, Other Musculoskeletal History - bilateral knee replacement, lower right leg cellulitis Sensory History: Reports: Hx Cataracts, Hx Contacts or Glasses - For reading Denies: Hx Hearing Aid Opthamlomology History: Reports: Hx Cataracts, Hx Contacts or Glasses - For reading Neurological History: Reports: Hx Nerve Disease - "stocking feet" tremors, Other Neuro Impairments/Disorders - spinal stenosis. PAIN CLINIC PT Psychiatric History: Reports: Hx Anxiety, Hx Depression Denies: Hx Panic Disorder - Surgical History Surgery Procedure, Year, and Place: Appendectomy. bilat [facility]tr [facility]. L knee scope. lumbar discectomy 30 yrs ago. Abdominal Obstruction/Hernia Repair with Mesh syr 2012 - hernia repair x3 and replacement of infected mesh. Hysterectomy. right tkr 03/2014 [facility]. left TKR 08/23 [facility]. right macular hole repair syr. Bilateral cataract [facility]. Revision right total knee secondary to infection 2016 Hx Anesthesia Reactions: No Infectious Disease History: No Infectious Disease History: Reports: Hx of Known/Suspected MRSA - see above, History Other Infectious Disease Denies: Traveled Outside the [place] in Last 30 Days - Family History Known Family History: Positive: Hypertension - Social History Alcohol Use: Rare Hx Substance Use: No Substance Use Type: Reports: None Hx Tobacco Use: No Smoking Status (MU): Never Smoked Tobacco Have You Smoked in the Last Year: No Review of Systems Negative: Fever Positive: Other - Left shouldr pain. States she cannot move fingers. All Other Systems Reviewed And Are Negative: Yes Physical Exam Triage Information Reviewed: Yes Vital Signs On Initial Exam: Initial Vitals Temp Pulse Resp BP Pulse Ox 96.5 F 84 16 200/107 93 01/14/17 00:35 01/14/17 00:35 01/14/17 00:35 01/14/17 00:35 01/14/17 00:35 Vital Signs Reviewed: Yes Appearance: Positive: Well-Appearing, Pain Distress - Moderate to severe. Skin: Positive: Warm, Skin Color Reflects Adequate Perfusion, Dry Head/Face: Positive: Normal Head/Face Inspection Eyes: Positive: EOMI, REGIS Neck: Positive: Supple, Nontender Respiratory/Lung Sounds: Positive: Clear to Auscultation, Breath Sounds Present Cardiovascular: Positive: RRR, Other - Positive radial pulse. Capillary refill in less than 3sec. Abdomen Description: Positive: Nontender, Soft Bowel Sounds: Positive: Present Musculoskeletal: Positive: Strength/ROM Intact, Other - Obvious deformity of left shoulder. Neurological: Positive: Sensory/Motor Intact, Alert, Oriented to Person Place, Time, Other - Pt reports decreased sensation and numbness of left arm. Psychiatric: Positive: Affect/Mood Appropriate Procedures - Joint Reduction Joint Reduction Site: shoulder (L) Conscious Sedation: Yes Pre-Procedure NV Exam: Yes Post Joint Reduction Film: PROXIMAL HUMERUS FXR SEEN Diagnostics - Vital Signs Vital Signs Temp Pulse Resp BP Pulse Ox 01/14/17 00:35 96.5 F 84 16 200/107 93 - Laboratory Lab Statement: Any lab studies that have been ordered have been reviewed, and results considered in the medical decision making process. - Radiology CXR Radiology Interpretation Completed By: ED Physician - Rotated. No pneumothorax. No rib fracture appreciated. Left shoulder dislocation. SHOULDER, LEFT XR Radiology Interpretation Completed By: ED Physician - Shoulder dislocation. Hill -Sachs fracture. SHOULDER, LEFT XR 2 Radiology Interpretation Completed By: ED Physician - Back in place. Possible nondisplaced proximal humerus fracture., Radiologist - IMPRESSION: see EMR pending radiology reading. Re-Evaluation - Re-Evaluation First Eval Re-Evaluation Time: 01:39 Comment: Informed family and pt of imaging results. Second Eval Re-Evaluation Time: 01:51 Comment: Discussed plan. Adult Trauma Course/Dx - Course Course Of Treatment: SHOULDER IMMOBILIZER PLACED. DISCUSSED FXR WITH PATIENT/ FAMILY. SHE HAS AN ORTHOPEDICS APPOINTMENT THIS AM. FURTHER CARE PER ORTHOPEDICS. DISCHARGE HOME STABLE. - Diagnoses Provider Diagnoses: Dislocation of shoulder, left, closed, Fracture of humerus, proximal, left, closed - Critical Care Time Critical Care Time: 30-74 min Discharge - Discharge Plan Condition: Stable Disposition: HOME Patient Education Materials: Shoulder Dislocation (ED), Proximal Humerus Fracture (ED) Referrals: Grisel Jerome MD [Primary Care Provider] - Additional Instructions: FOLLOW UP WITH YOUR DR JEROME AND ORTHOPEDICS. RETURN TO THE EMERGENCY DEPARTMENT FOR ANY WORSENING OF YOUR CONDITION OR QUESTIONS OR CONCERNS. The documentation as recorded by the Lyndon laureano Salem accurately reflects the service I personally performed and the decisions made by me, Justice Negro MD.
--- NOTE | 2017-01-14 07:43 | RAD ---
INDICATION: Shoulder pain after a fall COMPARISON: None TECHNIQUE: 2 views of the left shoulder were obtained. FINDINGS: There is dislocation of the glenohumeral joint with the humeral head displaced inferiorly and anteriorly relative to the bony glenoid labrum. There is fracture at the left humeral greater tubercle with minimal displacement distal relative to the humeral head. IMPRESSION: DISLOCATION AND GREATER TUBEROSITY FRACTURE INVOLVING THE LEFT SHOULDER.
--- NOTE | 2017-01-14 07:45 | RAD ---
INDICATION: Left shoulder pain after a fall COMPARISON: Most recent comparison chest x-rays dated August 30, 2016 TECHNIQUE: Single AP portable view of the chest was obtained. FINDINGS: Image quality is compromised due to the relative inferiority of a portable chest x-ray. There has been interval resolution of the pneumonia visualized on the previous chest x-ray as well as removal of the left-sided PICC line. The patient appears to be tilted towards her left side but the heart and mediastinum are normal in size and contour. The lungs are grossly clear. Again noted is fracture dislocation of the left humerus described on the same day shoulder radiograph. IMPRESSION: 1. Fracture dislocation of the left shoulder. 2. No radiographic evidence of acute cardiopulmonary abnormality.
--- NOTE | 2017-01-14 07:48 | RAD ---
INDICATION: Status post left shoulder relocation. COMPARISON: Same day radiograph acquired at 0019 hours TECHNIQUE: 2 views of the left shoulder were obtained at 0149 hours. FINDINGS: There has been interval reduction of the dislocated left glenohumeral joint. Again seen is a nondisplaced fracture line at the left humeral greater tuberosity. There is also a fracture line along the anatomical neck of the humerus that extends to the medial humeral head cortex. Remaining visualized bones are intact and appropriately aligned. IMPRESSION: INTERVAL RELOCATION OF DISLOCATED LEFT SHOULDER WITH FRACTURES DESCRIBED ABOVE.
== END 2017-01-14 05:29 | disposition home or self-care (01) ==
LOC: ED 00:33
DX: S42.202A Unspecified fracture of upper end of left humerus, initial encounter for closed fracture (principal); S43.005A Unspecified dislocation of left shoulder joint, initial encounter; W19.XXXA Unspecified fall, initial encounter; Y93.9 Activity, unspecified; Y92.9 Unspecified place or not applicable; Y99.9 Unspecified external cause status
CPT/HCPCS: 71010; 96374; 96375; 99282; 99284; A9270-GY; J1170; J2250; J2310; J2405; J3010

== ENCOUNTER 2017-03-31 20:33 | Inpatient (IN) | payer MEDICARE ==
[2017-03-31] MEDS ORDERED: Ondansetron INJ* 2 MG/ML VIAL IV ONE (20:43)
[2017-03-31] MEDS ORDERED: Morphine INJ* 2 MG/ML 1 ML SYRINGE IV ONE (20:43)
[2017-03-31] MEDS ORDERED: NS 0.9% 1000 ML* 1,000 ML IV ONE (20:43)
--- NOTE | 2017-03-31 20:48 | ED ---
Alexandra Barajsa Thomas, scribed for Thomas Gonzales MD on 03/31/17 at 2047 . Abdominal Pain/Female - HPI Summary HPI Summary: The pt is an 82 y/o F with a ventral hernia that is BIBA c/o lower abd pain that began 3 days ago. The pain has significantly worsened today, prompting an ED visit. She has a ventral hernia that was first diagnosed 3 years ago and has not caused any problems until the last few days. The pain is aggravated and alleviated by nothing. 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 Pt has no other complaints at this time. PMHx: previous hernias. PSHx: previous hernia repairs x3 (per EMR), colon resection (per EMR). SHx: no smoking, rare alcohol use, no illicit drug use. She is accompanied by her daughters. Her PCP is Dr. Medellin, and she had an appointment with her tomorrow at 08:30. - History of Current Complaint Chief Complaint: EDAbdPain Stated Complaint: ABD PAIN Time Seen by Provider: 03/31/17 20:38 Hx Obtained From: Patient, Family/Head Orthopedic Team Physician - daughters present Onset/Duration: Lasting Days - onset 3 days ago, Still Present, Worse Since - earlier today Timing: Constant Severity Currently: Severe Location: Other - lower abd Aggravating Factor(s): Nothing Alleviating Factor(s): Nothing Associated Signs and Symptoms: Positive: Other: - NEG: any other complaints Allergies/Adverse Reactions: Allergies Allergy/AdvReac Type Severity Reaction Status Date / Time Adhesive Tape Allergy Rash Verified 03/31/17 23:36 Ciprofloxacin [From Cipro] AdvReac Vomiting Verified 03/31/17 23:36 Erythromycin AdvReac Vomiting Verified 03/31/17 23:36 Iodine AdvReac Anaphylatic Verified 02/08/17 11:17 Shock Penicillins AdvReac Hives/Diff. Verified 03/31/17 23:36 Breathing/I tching Sulfa Drugs AdvReac Nausea Verified 03/31/17 23:36 Tetracycline AdvReac Nausea Verified 03/31/17 23:36 CT CONTRAST Allergy Severe HIVES/DIFFICULTY Uncoded 03/31/17 23:36 BREATHING Home Medications: Home Medications Albuterol HFA INHALER* [Ventolin HFA Inhaler*] 1 puff INH Q4H PRN 03/31/17 [ History Confirmed 03/31/17] Doxycycline (Monohydrate) [Doxycycline Monohydrate] 100 mg PO BID 03/31/17 [ History Confirmed 03/31/17] PMH/Surg Hx/FS Hx/Imm Hx Previously Healthy: No Endocrine/Hematology History: Reports: Hx Thyroid Disease, Hx Anemia Denies: Hx Diabetes Cardiovascular History: Reports: Hx Angina, Hx Deep Vein Thrombosis, Hx Embolism , Hx Hypertension, Other Cardiovascular Problems/Disorders Denies: Hx Coronary Artery Disease, Hx Myocardial Infarction, Hx Pacemaker/ ICD Respiratory History: Reports: Hx Asthma, Hx Pneumonia, Hx Pulmonary Embolism - 2011 AFTER HAVING PNEUMONIA, Hx Seasonal Allergies, Other Respiratory Problems/ Disorders - PNEUMONIA- >2 YEARS AGO GI History: Reports: Hx Gastroesophageal Reflux Disease Denies: Hx Jaundice Comment Only: Other GI Disorders - hernia repair x3, colon resection History: Reports: Other Problems/Disorders - BLADDER INFECTION, CKD stage II - pt. denies CKD, per H+P CKD Denies: Hx Renal Disease Musculoskeletal History: Reports: Hx Arthritis, Hx Back Problems, Hx Gout, Hx Orthopedic Injury - Recent infection RTK, Hx Scoliosis, Other Musculoskeletal History - bilateral knee replacement, lower right leg cellulitis Sensory History: Reports: Hx Cataracts, Hx Contacts or Glasses - For reading Denies: Hx Hearing Aid Opthamlomology History: Reports: Hx Cataracts, Hx Contacts or Glasses - For reading Neurological History: Reports: Hx Nerve Disease - "stocking feet" tremors, Other Neuro Impairments/Disorders - spinal stenosis. PAIN CLINIC PT Psychiatric History: Reports: Hx Anxiety, Hx Depression Denies: Hx Panic Disorder - Surgical History Surgery Procedure, Year, and Place: Appendectomy. bilat [facility]tr [facility]. L knee scope. lumbar discectomy 30 yrs ago. Abdominal Obstruction/Hernia Repair with Mesh syr 2013 - hernia repair x3 and replacement of infected mesh. Hysterectomy. right tkr 03/2014 [facility]. left TKR 08/23 [facility]. right macular hole repair syr. Bilateral cataract [facility]. Revision right total knee secondary to infection 2016 Hx Anesthesia Reactions: No Infectious Disease History: Reports: Hx of Known/Suspected MRSA - see above, History Other Infectious Disease Denies: Traveled Outside the [place] in Last 30 Days - Family History Known Family History: Positive: Hypertension - Social History Alcohol Use: Rare Hx Substance Use: No Substance Use Type: Reports: None Hx Tobacco Use: No Smoking Status (MU): Never Smoked Tobacco Have You Smoked in the Last Year: No Review of Systems Negative: Fever Positive: Abdominal Pain - lower, ventral hernia, onset 3 days ago but worse today, hernia appeared 3 years ago All Other Systems Reviewed And Are Negative: Yes Physical Exam Triage Information Reviewed: Yes Vital Signs Reviewed: Yes Appearance: Positive: Ill-Appearing, Pain Distress - moerate Skin: Positive: Warm Head/Face: Positive: Normal Head/Face Inspection Eyes: Positive: REGIS ENT: Positive: Hearing grossly normal Neck: Positive: Supple Respiratory/Lung Sounds: Positive: Breath Sounds Present Cardiovascular: Positive: RRR Abdomen Description: Positive: Soft, Distended, Other: - tender ventral hernia Bowel Sounds: Positive: Hypoactive Musculoskeletal: Positive: Strength/ROM Intact Neurological: Positive: Alert, Oriented to Person Place, Time Psychiatric: Positive: Affect/Mood Appropriate Diagnostics - Laboratory Result Diagrams: 03/31/17 20:45 03/31/17 20:45 Lab Statement: Any lab studies that have been ordered have been reviewed, and results considered in the medical decision making process. - CT CT Abd/Pel CT Interpretation: Positive (See Comments) - significant worsening of diastasis recti with new moderate to large left ventral hernia containing multiples loops of bowel and likely causing an early or partial small bowel obstruction, but without abscess or free air. Gallstones. CT Interpretation Completed By: Radiologist Abdominal Pain Fem Course/Dx - Diagnoses Provider Diagnoses: SBO (small bowel obstruction) - Provider Notifications Discussed Care Of Patient With: Terrell Rodriguez Time Discussed With Above Provider: 00:30 Instructed by Provider To: Admit As Inpatient - I consulted with Dr. Rodriguez, surgery, regarding patient care. He advised admitting the patient to the medicine. I consulsted with Dr. Mcfadden, hospitalist, regarding patient care. He [place] the [place] [facility] [place] 00:[place] Discharge - Discharge Plan Condition: Fair Disposition: ADMITTED TO [facility] Referrals: Grisel Medellin MD [Primary Care Provider] - The documentation as recorded by the Alexandra laureano Thomas accurately reflects the service I personally performed and the decisions made by me, Thomas Gonzales MD.
[2017-03-31 21:03] LABS: Hematocrit 34 % (35-47); Hemoglobin 11.3 g/dl (12.0-16.0); Mean Corpuscular HGB Conc 33 g/dl (31-36); Mean Corpuscular Hemoglobin 29 pg (27-31); Mean Corpuscular Volume 89 fL (80-97); Mean Platelet Volume 8 um3 (7.4-10.4); Red Blood Count 3.85 10^6/ul (4.0-5.4); Red Cell Distribution Width 14 % (10.5-15); White Blood Count 7.9 10^3/ul (3.5-10.8)
[2017-03-31] MEDS ORDERED: diPHENhydraMINE IV* 50 MG/ML 1 ml VIAL (BENADRYL) IV ONE (21:15)
[2017-03-31 21:18] LABS: Albumin 3.5 g/dL (3.2-5.2); BUN/Creatinine Ratio 31.9 (8-20); C Reactive Protein 80.66 mg/L (< 5.00); Calcium 9.6 mg/dL (8.6-10.3); EGFR African American 73.1 (>60); EGFR Non-African American 56.9 (>60); Globulin 3.4 g/dL (2-4); Magnesium 1.7 mg/dL (1.9-2.7); Potassium 3.5 mmol/L (3.5-5.0); Total Bilirubin 0.6 mg/dL (0.2-1.0); Total Protein 6.9 g/dL (6.4-8.9)
[2017-03-31 23:16] LABS: Urine Bacteria 1+ (Absent); Urine Bilirubin Negative (Negative); Urine Glucose Negative (Negative); Urine Nitrite Negative (Negative)
[2017-04-01] MEDS ORDERED: Morphine INJ* 2 MG/ML 1 ML SYRINGE IV ONE (00:39)
[2017-04-01] MEDS ORDERED: NS 0.9% 1000 ML* 1,000 ML IV SCH (02:00)
[2017-04-01] MEDS ORDERED: Acetaminophen SUPP* 650 MG SUPP PR PRN (02:00)
[2017-04-01] MEDS ORDERED: Albuterol HFA INHALER* 8 gm MDI INH PRN (02:25)
--- NOTE | 2017-04-01 02:36 | HP ---
H&P (Free Text) History and Physical: PCP: Ciara Medellin MD Date/Time of Evaluation: 04/01/2017 0040 CC: abdominal pain HPI: Mrs Duke is an 82YO female HX numerous abdominal surgeries presents with 4 days of intermittent sharp to cramping abdominal pain which worsened to severe, constant, and associates with subjective fever, but no chills, sweats, N/V, or change in bowel/bladder. Last BM was yesterday and normal. She denies chest pain , SOB, palpitations, light-headedness, or other issues. She has no history of similar. PMedHx pulmonary embolism 2011 asthma HTN hypothyroidism spinal stenosis anxiety/depression Ambulatory Orders Montelukast Sodium TAB* [Singulair 5 mg TAB*] 10 mg PO DAILY 05/09/12 Apple Cider Vinegar 600 mg PO DAILY 03/19/14 Dicyclomine CAP* [Bentyl CAP*] 10 mg PO TID 03/19/14 Estropipate(NF) [Ogen(NF)] 0.75 mg PO QAM 03/19/14 Fluticasone NASAL * [Flonase *] 2 spray BOTH NARES DAILY 03/19/14 Kopbupvfyyo-KGN-Due C-Manganes [Glucosamine MSM Complex] 1 tab PO DAILY Levothyroxine TAB* [Synthroid 100 MCG TAB*] 100 mcg PO 0800 03/19/14 Magnesium Gluconate [Mag-G] 500 mg PO DAILY 03/19/14 Ondansetron [Zofran 8 MG Odt] 8 mg SL Q6H PRN 03/19/14 oxyCODONE TAB* [Roxycodone TAB 5 mg*] 5 - 10 mg PO Q6H PRN MDD 40 mg 03/19/14 Meclizine TAB* [Antivert 12.5 TAB*] 25 mg PO QID PRN 01/16/16 Methocarbamol TAB* [Robaxin 500 MG TAB*] 500 mg PO Q6H PRN 01/16/16 Mometasone/Formoter 200/5 MDI* [Dulera 200/5 MDI*] 2 puff INH BID 01/16/16 Multivitamins/Minerals TAB* [Theragran/minerals TAB*] 1 tab PO DAILY 01/16/16 Potassium Chlor TAB* [Potassium Chlor TAB 20 MEQ*] 20 meq PO QID 01/16/16 Senna TAB* [Senokot TAB*] 1 tab PO DAILY 01/16/16 Sertraline* [Zoloft*] 50 mg PO BID 01/16/16 Triamterene/HCTZ 37.5-25 MG* [Dyazide CAP*] 1 cap PO DAILY 01/16/16 oxyCODONE SR TAB(*) [Oxycontin 40 mg (*)] 40 mg PO Q12HR 01/16/16 Albuterol HFA INHALER* [Ventolin HFA Inhaler*] 1 puff INH Q4H PRN 03/31/17 Doxycycline (Monohydrate) [Doxycycline Monohydrate] 100 mg PO BID 03/31/17 Allergies Iodine Allergy (Verified 04/01/17 01:59) Anaphylatic Shock Penicillins Allergy (Verified 04/01/17 01:59) Hives/Diff.Breathing/Itching Adhesive Tape Adverse Reaction (Verified 04/01/17 01:59) Rash Ciprofloxacin [From Cipro] Adverse Reaction (Verified 03/31/17 23:36) Vomiting Erythromycin Adverse Reaction (Verified 03/31/17 23:36) Vomiting Sulfa Drugs Adverse Reaction (Verified 03/31/17 23:36) Nausea Tetracycline Adverse Reaction (Verified 03/31/17 23:36) Nausea CT CONTRAST Allergy (Severe, Uncoded 03/31/17 23:36) HIVES/DIFFICULTY BREATHING PSurgHx ventral hernia repair x3 B TKA colon resection B carpal tunnel releases OU cataract extraction hysterectomy (complicated by aortic rupture) abdominal aortic rupture repair appendectomy SocHx: no tobacco, rare alcohol, no recreational drugs; lives with her son; full code status FamHx: Mother and father passed of cancer. ROS: as above, otherwise reviewed and all were negative Constitutional: NAD, normally developed, well-nourished elderly white female vitals: Vital Signs Temp 36.1 C 03/31/17 20:35 Pulse 99 04/01/17 01:08 Resp 18 04/01/17 01:15 BP 132/51 03/31/17 22:30 Pulse Ox 97 04/01/17 01:08 Intake & Output 03/31/17 03/31/17 04/01/17 11:59 23:59 11:59 Weight 74.843 kg HEENM: atraumatic; sclera/conjunctiva: non-icteric/clear; oropharynx: clear, mucosa moist Neck: soft tissue: non-tender; thyroid: normal Pulmonary: clear to auscultation bilaterally, good aeration, no accessory muscle use CV: RR/RR, normal S1S2, no carotid bruit, no jugular venous distention, 1+ B DP/ PT, 3+ BLE edema Abdominal: soft, distended, hostile appearing protuberant ventral hernia, moderate diffuse tenderness without rebound/guarding/rigidity, hypoactive bowel sounds, no hepatosplenomegaly or masses, no costovertebral angle tenderness Musculoskeletal: general: grossly intact, no palpable tenderness Integumental: RUQ with 2 ~1cm non-healing wounds from prior ventral hernia repair, mesh is visible in the larger more lateral lesion; otherwise normal appearance and texture of exposed skin Psychiatric orientation: AA&O to PPS affect: calm mood: cooperative eye contact: good content: reliable responses: timely insight: good Testing: Lab Results 03/31/17 03/31/17 03/31/17 Range/Units 20:45 20:45 20:45 WBC 7.9 (3.5-10.8) 10^3/ul RBC 3.85 L (4.0-5.4) 10^6/ul Hgb 11.3 L (12.0-16.0) g/dl Hct 34 L (35-47) % MCV 89 (80-97) fL MCH 29 (27-31) pg MCHC 33 (31-36) g/dl RDW 14 (10.5-15) % Plt Count 325 (150-450) 10^3/ul MPV 8 (7.4-10.4) um3 Neut % (Auto) 68.0 (38-83) % Lymph % (Auto) 18.3 L (25-47) % [place] % (Auto) 11.0 H (1-9) % Eos % (Auto) 2.3 (0-6) % Baso % (Auto) 0.4 (0-2) % Absolute Neuts (auto) 5.4 (1.5-7.7) 10^3/ul Absolute Lymphs (auto) 1.4 (1.0-4.8) 10^3/ul Absolute Monos (auto) 0.9 H (0-0.8) 10^3/ul Absolute Eos (auto) 0.2 (0-0.6) 10^3/ul Absolute Basos (auto) 0 (0-0.2) 10^3/ul Absolute Nucleated RBC 0 10^3/ul Nucleated RBC % 0 INR (Anticoag Therapy) 0.94 (0.89-1.11) Sodium 137 (133-145) mmol/L Potassium 3.5 (3.5-5.0) mmol/L Chloride 99 L (101-111) mmol/L Carbon Dioxide 28 (22-32) mmol/L Anion Gap 10 (2-11) mmol/L BUN 30 H (6-24) mg/dL Creatinine 0.94 (0.51-0.95) mg/dL Est GFR ( Amer) 73.1 (>60) Est GFR (Non-Af Amer) 56.9 (>60) BUN/Creatinine Ratio 31.9 H (8-20) Glucose 100 (70-100) mg/dL Lactic Acid (0.5-2.0) mmol/L Calcium 9.6 (8.6-10.3) mg/dL Magnesium 1.7 L (1.9-2.7) mg/dL Total Bilirubin 0.60 (0.2-1.0) mg/dL AST 47 H (13-39) U/L ALT 20 (7-52) U/L Alkaline Phosphatase 93 (34-104) U/L C-Reactive Protein 80.66 H (< 5.00) mg/L Total Protein 6.9 (6.4-8.9) g/dL Albumin 3.5 (3.2-5.2) g/dL Globulin 3.4 (2-4) g/dL Albumin/Globulin Ratio 1.0 (1-3) Lipase 34 (11.0-82.0) U/L Urine Color Urine Appearance Urine pH (5-9) Ur Specific [place] (1.010-1.030) Urine Protein (Negative) Urine Ketones (Negative) Urine Blood (Negative) Urine Nitrate (Negative) Urine Bilirubin (Negative) Urine Urobilinogen (Negative) Ur Leukocyte Esterase (Negative) Urine WBC (Auto) (Absent) Urine RBC (Auto) (Absent) Ur Squamous Epith Cells (Absent) Urine Bacteria (Absent) Urine Glucose (Negative) 03/31/17 03/31/17 Range/Units 20:45 23:00 WBC (3.5-10.8) 10^3/ul RBC (4.0-5.4) 10^6/ul Hgb (12.0-16.0) g/dl Hct (35-47) % MCV (80-97) fL MCH (27-31) pg MCHC (31-36) g/dl RDW (10.5-15) % Plt Count (150-450) 10^3/ul MPV (7.4-10.4) um3 Neut % (Auto) (38-83) % Lymph % (Auto) (25-47) % [place] % (Auto) (1-9) % Eos % (Auto) (0-6) % Baso % (Auto) (0-2) % Absolute Neuts (auto) (1.5-7.7) 10^3/ul Absolute Lymphs (auto) (1.0-4.8) 10^3/ul Absolute Monos (auto) (0-0.8) 10^3/ul Absolute Eos (auto) (0-0.6) 10^3/ul Absolute Basos (auto) (0-0.2) 10^3/ul Absolute Nucleated RBC 10^3/ul Nucleated RBC % INR (Anticoag Therapy) (0.89-1.11) Sodium (133-145) mmol/L Potassium (3.5-5.0) mmol/L Chloride (101-111) mmol/L Carbon Dioxide (22-32) mmol/L Anion Gap (2-11) mmol/L BUN (6-24) mg/dL Creatinine (0.51-0.95) mg/dL Est GFR ( Amer) (>60) Est GFR (Non-Af Amer) (>60) BUN/Creatinine Ratio (8-20) Glucose (70-100) mg/dL Lactic Acid 1.3 (0.5-2.0) mmol/L Calcium (8.6-10.3) mg/dL Magnesium (1.9-2.7) mg/dL Total Bilirubin (0.2-1.0) mg/dL AST (13-39) U/L ALT (7-52) U/L Alkaline Phosphatase (34-104) U/L C-Reactive Protein (< 5.00) mg/L Total Protein (6.4-8.9) g/dL Albumin (3.2-5.2) g/dL Globulin (2-4) g/dL Albumin/Globulin Ratio (1-3) Lipase (11.0-82.0) U/L Urine Color Yellow Urine Appearance Clear Urine pH 7.0 (5-9) Ur Specific [place] 1.010 (1.010-1.030) Urine Protein Negative (Negative) Urine Ketones Negative (Negative) Urine Blood Negative (Negative) Urine Nitrate Negative (Negative) Urine Bilirubin Negative (Negative) Urine Urobilinogen Negative (Negative) Ur Leukocyte Esterase Trace H (Negative) Urine WBC (Auto) 1+(6-10/hpf) H (Absent) Urine RBC (Auto) Absent (Absent) Ur Squamous Epith Cells Present H (Absent) Urine Bacteria 1+ H (Absent) Urine Glucose Negative (Negative) CT abd/pel, personally reviewed: IMPRESSION: Significant worsening of diastasis recti with new moderate to large left ventral hernia containing multiple loops of bowel likely causing an early or partial small bowel obstruction, but without abscess or free air. Gallstones. Impression: 82F HX multiple abdominal surgeries & chronic hostile abdomen present with SBO DIAGNOSIS & PLAN Primary SBO : NG for decompression : NPO : IVFs : pain control : anti-emetics : Glen Rodriguez MD surgery consulted by ED, will evaluate in AM : supportive care Secondary HX pulmonary embolism 2012 : heparin SQ & SCDs asthma : continue albuterol HFA HTN : hold anti-hypertensives, monitor hypothyroidism : 1/2 dose IV levothyroxine until taking PO Admission Rational: inpatient for SBO not anticipated to resolve adequately w/i 48h to allow for discharge DVTp: heparin SQ & SCDs Code Status: full HCP: son
[2017-04-01] MEDS: HYDROmorphone* 1 MG/ML 1 ML SYR IV PRN ×5 (04:07→21:12)
[2017-04-01] MEDS: Ondansetron INJ* 2 MG/ML VIAL IV PRN ×3 (04:07→20:31)
[2017-04-01 06:52] LABS: Hematocrit 29 % (35-47); Hemoglobin 9.7 g/dl (12.0-16.0); Mean Corpuscular HGB Conc 33 g/dl (31-36); Mean Corpuscular Hemoglobin 30 pg (27-31); Mean Corpuscular Volume 90 fL (80-97); Mean Platelet Volume 9 um3 (7.4-10.4); Red Blood Count 3.22 10^6/ul (4.0-5.4); Red Cell Distribution Width 14 % (10.5-15); White Blood Count 5.3 10^3/ul (3.5-10.8)
[2017-04-01 07:06] LABS: BUN/Creatinine Ratio 30.2 (8-20); Calcium 8.7 mg/dL (8.6-10.3); Potassium 3.4 mmol/L (3.5-5.0)
--- NOTE | 2017-04-01 07:52 | RAD ---
CLINICAL HISTORY: Abdominal pain. Relevant surgical history includes appendectomy, hernia repair x3 and hysterectomy. COMPARISON: CT abdomen pelvis January 11, 2015 TECHNIQUE: Noncontrast CT examination of the abdomen and pelvis from the lung bases through the initial tuberosities. FINDINGS: VISUALIZED LUNG BASES: The visualized lung bases are grossly clear. There is no pleural effusion. ABDOMEN AND PELVIS: Evaluation of the solid organs and vasculature is limited without intravenous contrast. The liver, spleen, pancreas and adrenal glands are grossly normal in appearance. The gallbladder is normal. The kidneys are normal in appearance without focal mass, calcification or signs of hydronephrosis. There is interval worsening in the degree of the patient's diastases recti allowing herniation of small and large bowel further into the vicinity of the subcutaneous fat immediately beneath the dermis. The contrast-filled proximal small bowel is dilated up to 4.2 cm in diameter at its entry point into the hernia. There is decompression of the terminal ileum as it exits the hernia joining with the base of the cecum (axial image 54 of 95). There is gas and stool seen throughout the length of the colon. There is trace ascites and infiltration of the mesenteric fat is herniated into the diastases recti. Mesenteric lymph nodes herniating into the diastases recti along the mesenteric root are top normal in diameter but not pathologically enlarged (for example image 49). The uterus is surgically absent. The mildly calcified abdominal aorta and iliac arteries are normal in course and diameter. Chronic degenerative changes of the lower thoracic and lumbar spine includes a dextroconvex scoliosis of the lumbar spine, multilevel vacuum disc phenomenon, loss of intervertebral disc height and exuberant marginal osteophyte formation. This appearance is similar to the 2015 CT examination. IMPRESSION: 1. Since the most recent CT examination dated January 11, 2015 there has been interval worsening in the size of the diastases recti and volume of bowel loops herniating through the abdominal wall defect and into the pannus. The small bowel entering this hernia sac measures up to 4.1 cm in diameter while the exiting distal terminal ileum is decompressed indicating a degree of partial obstruction. Furthermore there is trace ascites and infiltration of the mesenteric fat that has herniated into the abdominal wall defect. 2. Additional chronic, degenerative and iatrogenic findings described in the body the report.
--- NOTE | 2017-04-01 11:01 | CONS ---
CC: Dr. Grisel Medellin, Internal Medicine * HISTORY AND PHYSICAL: DATE OF ADMISSION: 04/01/17 REFERRING PROVIDER: Victor Hugo Mcfadden MD. REASON FOR CONSULTATION: Abdominal pain, large ventral incisional hernia, and bowel obstruction. HISTORY OF PRESENT ILLNESS: Ms. Zaida Duke is an 82-year-old woman with a complicated abdominal surgical history who presented to the emergency room last night with 3 or 4 days of generalized abdominal discomfort, worsening over the course of the past 24 hours. She states that she had a normal bowel movement on Wednesday, and has been passing flatus through last night, when her abdomen became somewhat more distended and she was brought to the emergency room with her 2 daughters. She has had multiple abdominal surgeries in the past. Most of the records are not available to me. According to her history she has had an appendectomy as well as a hysterectomy and several ventral incisional hernia repairs done, including mesh placement over 20 years ago. Her most recent abdominal surgery was done in [place] for an apparent elective repair with mesh of a large ventral incisional hernia. She believes this was done at the [facility]. This was complicated by a mesh infections and prolonged recovery time. She has had recurrence of the hernia since that time and the last that she has seen the surgeon in [facility], felt that there was not an elective option and stated to her that he would only operate if that became an emergent situation. She also states that she has had two small areas of opening in the right upper quadrant, became chronic, with some exposed mesh, but there has been no redness , drainage or fever. She had been eating well. In the emergency room she was noted to be afebrile, without tachycardia, and normal blood pressure. White blood cell count was noted to be 7.9, with hemoglobin of 11.3. Electrolytes, BUN and creatinine were within normal limits , with a BUN of 30 and creatinine of 0.94. Lactic acid 1.3. She had a C- reactive protein of 80.66. She underwent a CAT scan of her abdomen and pelvis. I did review these images. This shows a massive ventral incisional hernia, with a large amount of both small and large intestine into the hernia sac. There is some proximal distended small bowel and stomach, with what appears to be some relatively collapsed distal small bowel extending down to the terminal ileum and colon. There is air throughout the colon. There is no free air, free fluid, abscess, and there is a large amount of stool throughout the colon itself. She was admitted to hospitalist service and a nasogastric tube was inserted. A surgical consultation was obtained. PAST MEDICAL HISTORY: 1. History of pulmonary embolism. 2. Asthma. 3. Hypertension. 4. Chronic low-back pain with spinal stenosis. 5. Anxiety/depression. MEDICATIONS: Include: 1. Singulair. 2. Bentyl. 3. Ogen. 4. Flonase. 5. Levothyroxine. 6. Zofran. 7. Oxycodone. 8. Antivert. 9. Robaxin. 10. Dulera. 11. Multivitamins. 12. Potassium. 13. Senna. 14. Zoloft. 15. Triamterene/HCTZ. 16. Oxycodone. 17. Albuterol. ALLERGIES: IODINE, PENICILLIN, ADHESIVES, CIPROFLOXACIN, ERYTHROMYCIN, SULFA, TETRACYCLINES SOCIAL HISTORY: She lives at home with her son. She has 2 daughters in the area. She does not use tobacco. Drinks alcohol very rarely. No recreational drugs. She is quite active, although does have chronic back pain. REVIEW OF SYSTEMS: Musculoskeletal: She has chronic low-back pain, seen in the [facility]. She recently dislocated her shoulder, has been wearing a sling. Cardiac: She denies any chest pain or shortness of breath. Pulmonary: There has been no recent wheezing or hemoptysis. GI as per above. : She has no urgency or hematuria. PHYSICAL EXAMINATION: GENERAL: She is a slender, elderly woman, appears to be in no apparent distress. VITAL SIGNS: Temperature 98.6, pulse 89, blood pressure 146/63. HEENT: Nasogastric tube is in position. LUNGS: Clear to auscultation, with diminished breath sounds throughout. HEART: Regular rate and rhythm, without murmurs, rubs, or gallops. ABDOMEN: Multiple abdominal incisions from xiphoid down to the pubis. She has a low transverse incision. There is a widened scar, almost in a transverse orientation, in the upper to mid abdomen. In the right upper quadrant there are 2 areas of chronic superficial skin erosion and one with what appears to be some exposed mesh. There is no redness, drainage, odor or purulence noted. She has bowel sounds that are present throughout, some of which are hyperactive , but they are not high pitched or tinkling, but there are some rushing. She has a massive ventral incisional hernia, which is slightly firm, is soft, but it is not reducible and is uncomfortable on deeper palpation. She has no rebound, guarding or peritoneal signs. PSYCHIATRIC: She is awake, alert, appears to have normal judgment and insight. DIAGNOSTIC STUDIES/LAB DATA: I did review the CT scan of the abdomen and pelvis. This has also been read by our radiologist here. There shows to be a worsening of the size of diastasis recti and ventral incisional hernia, with larger volume of bowel loop herniating through the abdominal wall. There are findings consistent with bowel obstruction within the hernia and a small amount of fluid in the area. IMPRESSION: Chronic large ventral incisional hernia, non-reducible, now presenting with abdominal pain, with an apparent partial small bowel obstruction. She has been passing some flatus. She has not been vomiting and has normal laboratory evaluation. The CT scan shows progression of the size of the ventral incisional hernia from several years ago. Her last operation was in [place] and at that time she was not felt to be an elective candidate for further repair after a complicated postoperative course. At this point there are no emergent indications for surgical intervention. This is obviously a difficult and challenging situation as I am sure that she has lost her "domain" of trying to attempt to reduce this bowel and reconstruct her abdominal wall, and certainly if her condition does not improve or worsens, and she does require emergent operation, I would recommend that she be transferred to a tertiary care center for a higher level of care, for care that includes emergent surgery with possible plastic surgical reconstruction. I discussed all of this with her and I will discuss this with Dr. Grisel Medellin, her primary care provider, or her partners who will be seeing her here in the hospital today. For now I would recommend continuing nasogastric tube, decompression, and keeping her n.p.o. Thank you for the consultation. I will follow her closely with you. [id number]/[facility] #: [id number] FUNMILAYO
[2017-04-01] MEDS: KCL 20 MEQ/100 ML IVPREMIX* 100 ML BAG IV SCH ×2 (13:20→18:05)
[2017-04-01] MEDS: NS 0.9% w/ 20 Meq KCL 1000 ML* 1,000 ML IV SCH (14:50)
[2017-04-01] MEDS: Mometasone/Formoter 200/5 MDI INH SCH (19:56)
[2017-04-02] MEDS: HYDROmorphone* 1 MG/ML 1 ML SYR IV PRN ×7 (01:14→23:06)
[2017-04-02] MEDS: NS 0.9% w/ 20 Meq KCL 1000 ML* 1,000 ML IV SCH ×2 (01:17→17:22)
[2017-04-02] MEDS: PROCHLORPERAZINE INJ 5 MG/ML 2 ML VIAL ONE ×2 (01:41→01:55)
[2017-04-02] MEDS: Ondansetron INJ* 2 MG/ML VIAL IV PRN (05:43)
[2017-04-02] MEDS: Levothyroxine INJ* 100 MCG/5 ML VIAL IV SCH (06:05)
[2017-04-02] MEDS: Heparin VIAL(*) 5000 UNITS/ML VIAL (FIVE THOUSAND) SUBCUT SCH ×3 (06:05→21:43)
[2017-04-02 06:39] LABS: Hematocrit 31 % (35-47); Hemoglobin 10.3 g/dl (12.0-16.0); Mean Corpuscular HGB Conc 33 g/dl (31-36); Mean Corpuscular Hemoglobin 30 pg (27-31); Mean Corpuscular Volume 91 fL (80-97); Mean Platelet Volume 8 um3 (7.4-10.4); Red Blood Count 3.43 10^6/ul (4.0-5.4); Red Cell Distribution Width 14 % (10.5-15)
[2017-04-02 06:55] LABS: Albumin 2.9 g/dL (3.2-5.2); BUN/Creatinine Ratio 22.5 (8-20); C Reactive Protein 74.99 mg/L (< 5.00); Calcium 8.7 mg/dL (8.6-10.3); EGFR African American 101.1 (>60); EGFR Non-African American 78.6 (>60); Globulin 2.8 g/dL (2-4); Magnesium 1.6 mg/dL (1.9-2.7); Phosphorus 2.4 mg/dL (2.5-5.0); Potassium 3.5 mmol/L (3.5-5.0); Total Bilirubin 0.7 mg/dL (0.2-1.0); Total Protein 5.7 g/dL (6.4-8.9)
[2017-04-02] MEDS: Mometasone/Formoter 200/5 MDI INH SCH ×2 (08:30→19:37)
[2017-04-02] MEDS: PROCHLORPERAZINE INJ 5 MG/ML 2 ML VIAL IV PRN ×2 (09:09→15:23)
--- NOTE | 2017-04-02 09:30 | RAD ---
INDICATION: Small bowel obstruction COMPARISON: CT March 31, 2017 TECHNIQUE: A single view of the abdomen is submitted. FINDINGS: Bones: There are no acute bony findings. There is spondylitic change of the visualized thoracic and lumbar spine with a moderate scoliotic deformity Soft tissues: The soft tissues appear normal. The psoas margins are sharp. Bowel gas pattern: Findings suggesting mild partial small bowel obstruction. There are dilated loops of small bowel within the patient's ventral hernia as better documented on recent CT. There is contrast and stool within the colon. The stomach decompressed by the nasogastric tube. Calcifications: There are no abnormal calcifications. Other: None IMPRESSION: SUSPECT MILD PARTIAL SMALL BOWEL OBSTRUCTION. CT CONTRAST HAS PASSED INTO THE RIGHT COLON.
--- NOTE | 2017-04-02 11:37 | PN ---
Progress Note - Progress Note Date of Service: 04/02/17 SOAP: Subjective: She had a small BM this morning and is passing some flatus. She had more abdominal pain last night but is improved today She has been getting out of bed and ambulating without difficulty. Objective: Temp Pulse Resp BP Pulse Ox 98.4 F 78 16 155/73 98 04/02/17 07:55 04/02/17 07:55 04/02/17 10:09 04/02/17 07:55 04/02/17 07:55 Intake & Output 03/31/17 04/01/17 04/02/17 04/03/17 06:59 06:59 06:59 06:59 Intake Total 1000 969 Output Total 0 2625 200 Balance 1000 -1656 -200 Weight 173 lb 4.8 oz Intake: IV Fluids 1000 859 NS (0.9%) 859 IVPB 110 Potassium 20 MeQ/100 ml 110 Oral 0 0 Output: NG Tube Drainage Amount 725 Urine 0 1900 200 Other: Date of Last Bowel 04/02/17 Movement # Bowel Movements 0 Estimated Stool Amount Medium PEX: Comfortable Lungs are clear Abd is soft and distended. There is much less distension this morning. Bowel sounds are present and are slightly hyperactive at times but are not high pitched or tinkling. There is some mild generalized tenderness but no peritoneal irritation. Laboratory Last Values WBC 5.0 10^3/ul (3.5-10.8) 04/02/17 06:16 RBC 3.43 10^6/ul (4.0-5.4) L 04/02/17 06:16 Hgb 10.3 g/dl (12.0-16.0) L 04/02/17 06:16 Hct 31 % (35-47) L 04/02/17 06:16 MCV 91 fL (80-97) 04/02/17 06:16 MCH 30 pg (27-31) 04/02/17 06:16 MCHC 33 g/dl (31-36) 04/02/17 06:16 RDW 14 % (10.5-15) 04/02/17 06:16 Plt Count 268 10^3/ul (150-450) 04/02/17 06:16 MPV 8 um3 (7.4-10.4) 04/02/17 06:16 Neut % (Auto) 68.0 % (38-83) 03/31/17 20:45 Lymph % (Auto) 18.3 % (25-47) L 03/31/17 20:45 [place] % (Auto) 11.0 % (1-9) H 03/31/17 20:45 Eos % (Auto) 2.3 % (0-6) 03/31/17 20:45 Baso % (Auto) 0.4 % (0-2) 03/31/17 20:45 Absolute Neuts (auto) 5.4 10^3/ul (1.5-7.7) 03/31/17 20:45 Absolute Lymphs (auto) 1.4 10^3/ul (1.0-4.8) 03/31/17 20:45 Absolute Monos (auto) 0.9 10^3/ul (0-0.8) H 03/31/17 20:45 Absolute Eos (auto) 0.2 10^3/ul (0-0.6) 03/31/17 20:45 Absolute Basos (auto) 0 10^3/ul (0-0.2) 03/31/17 20:45 Absolute Nucleated RBC 0 10^3/ul 03/31/17 20:45 Nucleated RBC % 0 03/31/17 20:45 INR (Anticoag Therapy) 0.94 (0.89-1.11) 03/31/17 20:45 Sodium 139 mmol/L (133-145) 04/02/17 06:16 Potassium 3.5 mmol/L (3.5-5.0) 04/02/17 06:16 Chloride 105 mmol/L (101-111) 04/02/17 06:16 Carbon Dioxide 23 mmol/L (22-32) 04/02/17 06:16 Anion Gap 11 mmol/L (2-11) 04/02/17 06:16 BUN 16 mg/dL (6-24) 04/02/17 06:16 Creatinine 0.71 mg/dL (0.51-0.95) 04/02/17 06:16 Est GFR ( Amer) 101.1 (>60) 04/02/17 06:16 Est GFR (Non-Af Amer) 78.6 (>60) 04/02/17 06:16 BUN/Creatinine Ratio 22.5 (8-20) H 04/02/17 06:16 Glucose 75 mg/dL (70-100) 04/02/17 06:16 Lactic Acid 1.3 mmol/L (0.5-2.0) 03/31/17 20:45 Calcium 8.7 mg/dL (8.6-10.3) 04/02/17 06:16 Phosphorus 2.4 mg/dL (2.5-5.0) L 04/02/17 06:16 Magnesium 1.6 mg/dL (1.9-2.7) L 04/02/17 06:16 Total Bilirubin 0.70 mg/dL (0.2-1.0) 04/02/17 06:16 AST 28 U/L (13-39) 04/02/17 06:16 ALT 12 U/L (7-52) 04/02/17 06:16 Alkaline Phosphatase 73 U/L (34-104) 04/02/17 06:16 C-Reactive Protein 74.99 mg/L (< 5.00) H 04/02/17 06:16 B-Natriuretic Peptide 170 pg/mL (-100) H 04/02/17 06:16 Total Protein 5.7 g/dL (6.4-8.9) L 04/02/17 06:16 Albumin 2.9 g/dL (3.2-5.2) L 04/02/17 06:16 Globulin 2.8 g/dL (2-4) 04/02/17 06:16 Albumin/Globulin Ratio 1.0 (1-3) 04/02/17 06:16 Amylase 18 U/L (29-103) L 04/02/17 06:16 Lipase 34 U/L (11.0-82.0) 03/31/17 20:45 Urine Color Yellow 03/31/17 23:00 Urine Appearance Clear 03/31/17 23:00 Urine pH 7.0 (5-9) 03/31/17 23:00 Ur Specific [place] 1.010 (1.010-1.030) 03/31/17 23:00 Urine Protein Negative (Negative) 03/31/17 23:00 Urine Ketones Negative (Negative) 03/31/17 23:00 Urine Blood Negative (Negative) 03/31/17 23:00 Urine Nitrate Negative (Negative) 03/31/17 23:00 Urine Bilirubin Negative (Negative) 03/31/17 23:00 Urine Urobilinogen Negative (Negative) 03/31/17 23:00 Ur Leukocyte Esterase Trace (Negative) H 03/31/17 23:00 Urine WBC (Auto) 1+(6-10/hpf) (Absent) H 03/31/17 23:00 Urine RBC (Auto) Absent (Absent) 03/31/17 23:00 Ur Squamous Epith Cells Present (Absent) H 03/31/17 23:00 Urine Bacteria 1+ (Absent) H 03/31/17 23:00 Urine Glucose Negative (Negative) 03/31/17 23:00 AXR reviewed--there remain some distended loops of small bowel but a considerable amount or oral contrast into the colon. Findings consistent with partial small bowel obstruction. Assessment: Large complex ventral incisional hernia with small bowel obstruction. Overall she appears clinically better this morning and is passing some flatus and had a bowel movement. She is much less distended and NGT does not have a significant amount of output. She is a significant operative challenge with her multiple previous abdominal operations and hernia repairs with mesh and she certainly has "loss of domain" as a result of the massive incisional hernias. At present there is no absolute indication for emergent surgery-she has no fever or tachycardia or peritonitis. Her WBC is normal and she has normal renal function. She is less distended and has now passed a small amount of flatus. Plan: Will d/c NGT and continue NPO and follow for now. Continue IVF and repeat labs in the AM If she improves, hopefully can start po in the next several days. If no improvement will plan a repeat CT scan with appropriate management depending on the results. Her last hernia surgery was in [place] and Dr. Medellin has discussed her care with her surgeon there. I feel that if she ultimately requires surgery that she should be transferred to [place] for operative intervention and post- operative care due to the complexity of hernia and the need for reconstruction of her abdominal wall that is beyond the scope of my practice. I discussed all of this with her son on the phone last night and updated her on condition. Discussed with Dr. Medellin this morning. I am director external communications this weekend, I will be seeing her everyday.
[2017-04-03] MEDS: HYDROmorphone* 1 MG/ML 1 ML SYR IV PRN ×4 (02:39→19:18)
[2017-04-03] MEDS: Ondansetron INJ* 2 MG/ML VIAL IV PRN (02:43)
[2017-04-03] MEDS: Heparin VIAL(*) 5000 UNITS/ML VIAL (FIVE THOUSAND) SUBCUT SCH ×3 (05:32→21:35)
[2017-04-03] MEDS: Levothyroxine INJ* 100 MCG/5 ML VIAL IV SCH (05:34)
[2017-04-03] MEDS: NS 0.9% w/ 20 Meq KCL 1000 ML* 1,000 ML IV SCH ×2 (05:47→21:35)
--- NOTE | 2017-04-03 08:18 | PN ---
Progress Note - Progress Note Date of Service: 04/03/17 SOAP: Subjective: Doing well without NGT-no nausea at present, tolerating ice chips. Passing flatus and had two BM's last night Slept in chair last night Objective: Temp Pulse Resp BP Pulse Ox 98.1 F 81 15 141/58 99 04/03/17 07:21 04/03/17 07:21 04/03/17 07:21 04/03/17 07:21 04/03/17 07:21 Intake & Output 04/01/17 04/02/17 04/03/17 04/04/17 06:59 06:59 06:59 06:59 Intake Total 3630 470 4279 0 Output Total 0 2625 2700 700 Balance 1000 -1656 107 -700 Weight 173 lb 4.8 oz 165 lb 12.8 oz Intake: IV Fluids 5029 667 6322 NS (0.9%) 859 NS (0.9%) 20 meq KCL 1037 IVPB 110 800 Potassium 20 MeQ/100 ml 110 800 Oral 0 0 970 0 Output: NG Tube Drainage Amount 725 200 Urine 0 1900 2500 700 Other: Date of Last Bowel 04/02/17 04/02/17 Movement # Bowel Movements 0 Estimated Stool Amount Medium Small PEX: Comfortable in chair Abd is soft and mildly tender. Bowel sounds are present and are normal pitched but somewhat hyperactive. Hernia not reducible as always. Labs and AXR pending Assessment: Large ventral incisional hernia with SBO--she is slowly progressing now having BM's and passing some flatus. Plan: Check AXR this morning Will start sips of clear liquids
[2017-04-03 08:22] LABS: Hematocrit 36 % (35-47); Hemoglobin 11.7 g/dl (12.0-16.0); Mean Corpuscular HGB Conc 33 g/dl (31-36); Mean Corpuscular Hemoglobin 30 pg (27-31); Mean Corpuscular Volume 91 fL (80-97); Mean Platelet Volume 8 um3 (7.4-10.4); Red Blood Count 3.94 10^6/ul (4.0-5.4); Red Cell Distribution Width 14 % (10.5-15); White Blood Count 5.8 10^3/ul (3.5-10.8)
--- NOTE | 2017-04-03 08:37 | RAD ---
HISTORY: Small bowel obstruction COMPARISONS: April 02, 2017, CT dated March 31, 2017 VIEWS: Frontal supine and upright views of the abdomen. FINDINGS: BOWEL: There is a nonspecific bowel gas pattern, with nondilated small bowel gas noted. Again noted are loops of mildly distended small bowel corresponding to those noted within hernia sac on the previous CT examination. Oral contrast is noted within the colon. CALCULI: There are no abnormal calculi. BONES AND SOFT TISSUES: There is a scoliotic curvature of the spine. Degenerative changes are noted. OTHER FINDINGS: The lung bases are clear. There is no subphrenic gas. IMPRESSION: NONSPECIFIC BOWEL GAS PATTERN. ORAL CONTRAST IS NOTED WITHIN THE COLON
[2017-04-03 08:53] LABS: Albumin 3.2 g/dL (3.2-5.2); BUN/Creatinine Ratio 15.9 (8-20); C Reactive Protein 67.05 mg/L (< 5.00); Calcium 9.3 mg/dL (8.6-10.3); EGFR African American 104.5 (>60); EGFR Non-African American 81.3 (>60); Globulin 3.2 g/dL (2-4); Potassium 3.6 mmol/L (3.5-5.0); Total Bilirubin 0.5 mg/dL (0.2-1.0); Total Protein 6.4 g/dL (6.4-8.9)
[2017-04-03] MEDS: Mometasone/Formoter 200/5 MDI INH SCH ×2 (09:08→19:32)
[2017-04-03] MEDS: oxyCODONE SR TAB(*) 40 MG TAB.SR PO SCH ×2 (09:09→21:35)
[2017-04-03] MEDS: Ondansetron ODT TAB* 4 MG SL PRN ×3 (09:10→23:40)
[2017-04-03 13:36] LABS: Magnesium 1.5 mg/dL (1.9-2.7)
[2017-04-03] MEDS: PROCHLORPERAZINE INJ 5 MG/ML 2 ML VIAL IV PRN (14:23)
[2017-04-03] MEDS: oxyCODONE TAB* 5 MG TAB PO PRN ×2 (15:44→23:40)
[2017-04-03 15:52] LABS: Urine Bacteria Absent (Absent); Urine Bilirubin Negative (Negative); Urine Glucose Negative (Negative); Urine Nitrite Negative (Negative)
[2017-04-04] MEDS: oxyCODONE TAB* 5 MG TAB PO PRN ×2 (04:18→13:12)
[2017-04-04] MEDS: Ondansetron INJ* 2 MG/ML VIAL IV PRN ×2 (05:23→22:32)
[2017-04-04] MEDS: Levothyroxine INJ* 100 MCG/5 ML VIAL IV SCH (05:43)
[2017-04-04] MEDS: Heparin VIAL(*) 5000 UNITS/ML VIAL (FIVE THOUSAND) SUBCUT SCH ×3 (05:43→21:39)
[2017-04-04] MEDS: HYDROmorphone* 1 MG/ML 1 ML SYR IV PRN ×2 (05:44→16:37)
[2017-04-04 06:22] LABS: Hematocrit 33 % (35-47); Hemoglobin 10.6 g/dl (12.0-16.0); Mean Corpuscular HGB Conc 33 g/dl (31-36); Mean Corpuscular Hemoglobin 30 pg (27-31); Mean Corpuscular Volume 92 fL (80-97); Mean Platelet Volume 8 um3 (7.4-10.4); Red Blood Count 3.53 10^6/ul (4.0-5.4); Red Cell Distribution Width 14 % (10.5-15); White Blood Count 6.5 10^3/ul (3.5-10.8)
[2017-04-04 06:39] LABS: BUN/Creatinine Ratio 13.6 (8-20); Calcium 8.8 mg/dL (8.6-10.3); EGFR Non-African American 85.5 (>60); Magnesium 1.4 mg/dL (1.9-2.7); Potassium 3.7 mmol/L (3.5-5.0)
[2017-04-04] MEDS: Mometasone/Formoter 200/5 MDI INH SCH ×2 (08:24→20:30)
[2017-04-04] MEDS: oxyCODONE SR TAB(*) 40 MG TAB.SR PO SCH ×2 (09:15→21:38)
[2017-04-04] MEDS: NS 0.9% w/ 20 Meq KCL 1000 ML* 1,000 ML IV SCH (09:15)
--- NOTE | 2017-04-04 09:21 | PN ---
Progress Note - Progress Note Date of Service: 04/04/17 SOAP: Subjective: She had a large bowel movement last night and is passing flatus She tolerated clear liquids-some slight nausea which she says she has frequently Minimal abdominal pain-baseline for her Objective: Temp Pulse Resp BP Pulse Ox 97.8 F 78 16 138/57 100 04/04/17 08:53 04/04/17 08:53 04/04/17 09:15 04/04/17 08:53 04/04/17 08:53 Intake & Output 04/02/17 04/03/17 04/04/17 04/05/17 06:59 06:59 06:59 06:59 Intake Total 969 2807 1096 1585 Output Total 2625 2700 2650 Balance -1656 107 -1554 1585 Weight 165 lb 12.8 oz 164 lb 6.4 oz Intake: IV Fluids 859 4841 221 3665 NS (0.9%) 859 NS (0.9%) 20 meq KCL 7968 864 7897 IVPB 110 800 Potassium 20 MeQ/100 ml 110 800 Oral 0 970 685 Output: NG Tube Drainage Amount 725 200 Urine 1900 2500 2650 Other: Estimated Void Medium Date of Last Bowel 04/02/17 04/02/17 Movement # Bowel Movements 0 1 Estimated Stool Amount Medium Small Large PEX: Comfortable Abd is soft and mildly distended, not firm Bowel sounds are present--normal sounds without high pitch or tinkling. Minimal discomfort, improved from yesterday. No rebound or guarding. Laboratory Results - last 24 hr 04/03/17 04/03/17 04/04/17 08:01 15:10 06:00 WBC 6.5 RBC 3.53 L Hgb 10.6 L Hct 33 L MCV 92 MCH 30 MCHC 33 RDW 14 Plt Count 300 MPV 8 Sodium Potassium Chloride Carbon Dioxide Anion Gap BUN Creatinine Est GFR ( Amer) Est GFR (Non-Af Amer) BUN/Creatinine Ratio Glucose Calcium Magnesium 1.5 L Urine Color Straw Urine Appearance Clear Urine pH 5.0 Ur Specific [place] 1.010 Urine Protein Negative Urine Ketones 2+ H Urine Blood Negative Urine Nitrate Negative Urine Bilirubin Negative Urine Urobilinogen Negative Ur Leukocyte Esterase Trace H Urine WBC (Auto) Trace(0-5/hpf) Urine RBC (Auto) Trace(0-2/hpf) Ur Squamous Epith Cells Present H Urine Bacteria Absent Urine Glucose Negative 04/04/17 06:00 WBC RBC Hgb Hct MCV MCH MCHC RDW Plt Count MPV Sodium 136 Potassium 3.7 Chloride 103 Carbon Dioxide 20 L Anion Gap 13 H BUN 9 Creatinine 0.66 Est GFR ( Amer) 110.0 Est GFR (Non-Af Amer) 85.5 BUN/Creatinine Ratio 13.6 Glucose 61 L Calcium 8.8 Magnesium 1.4 L Urine Color Urine Appearance Urine pH Ur Specific [place] Urine Protein Urine Ketones Urine Blood Urine Nitrate Urine Bilirubin Urine Urobilinogen Ur Leukocyte Esterase Urine WBC (Auto) Urine RBC (Auto) Ur Squamous Epith Cells Urine Bacteria Urine Glucose Assessment: Massive ventral incisional hernia with SBO--obstruction resolving nicely and she is tolerating po and having bowel movements. Plan: Advance diet to full liquids If tolerates, OK for d/c from surgical standpoint.
[2017-04-04] MEDS: Magnesium Sulfate 2 GM IV IVPB SCH ×2 (13:12→16:37)
[2017-04-04] MEDS: Sertraline* 50 MG TAB PO SCH (21:38)
[2017-04-05] MEDS: Calcium Carbonate CHEW TAB* 500 MG (TUMS) PO PRN ×2 (01:13→05:42)
[2017-04-05] MEDS: oxyCODONE TAB* 5 MG TAB PO PRN ×3 (01:16→23:34)
[2017-04-05] MEDS: HYDROmorphone* 1 MG/ML 1 ML SYR IV PRN (04:24)
[2017-04-05] MEDS: Heparin VIAL(*) 5000 UNITS/ML VIAL (FIVE THOUSAND) SUBCUT SCH ×3 (05:42→22:18)
[2017-04-05] MEDS: Levothyroxine TAB* 100 MCG TAB PO SCH (05:48)
[2017-04-05 05:50] LABS: BUN/Creatinine Ratio 9.5 (8-20); EGFR African American 116.1 (>60); EGFR Non-African American 90.2 (>60); Magnesium 1.8 mg/dL (1.9-2.7); Potassium 3.1 mmol/L (3.5-5.0)
[2017-04-05] MEDS: Mometasone/Formoter 200/5 MDI INH SCH ×2 (07:55→20:54)
[2017-04-05] MEDS: oxyCODONE SR TAB(*) 40 MG TAB.SR PO SCH ×2 (08:32→20:49)
--- NOTE | 2017-04-05 08:43 | PN ---
Progress Note - Progress Note Date of Service: 04/05/17 SOAP: Subjective: Large BM and passing flatus last night Tolerating liquids, has some occasional nausea Abdominal pain waxes and wanes Objective: Temp Pulse Resp BP Pulse Ox 97.8 F 75 16 151/58 98 04/05/17 07:26 04/05/17 07:26 04/05/17 08:32 04/05/17 07:26 04/05/17 07:26 Intake & Output 04/03/17 04/04/17 04/05/17 04/06/17 06:59 06:59 06:59 06:59 Intake Total 2807 1096 2905 Output Total 2700 2650 2700 Balance 107 -1554 205 Weight 165 lb 12.8 oz 161 lb 8 oz 161 lb 8 oz Intake: IV Fluids 0888 327 5497 NS (0.9%) 20 meq KCL 6260 220 6737 IVPB 800 Potassium 20 MeQ/100 ml 800 Oral 997 483 7916 Output: NG Tube Drainage Amount 200 Urine 2500 2650 2700 Other: Estimated Void Medium Date of Last Bowel 04/02/17 Movement # Bowel Movements 1 1 Estimated Stool Amount Small Large Large Assessment: Small bowel obstruction with massive ventral incisional hernia-she is doing well with liquids and having bowel movements and passing flatus Plan: Continue present care OK for d/c from surgical standpoint
[2017-04-05] MEDS: Sertraline* 50 MG TAB PO SCH ×2 (08:58→20:48)
[2017-04-05] MEDS ORDERED: KCL 20 MEQ/100 ML IVPREMIX* 20 MEQ/100 ML BAG IV ONE (11:00)
[2017-04-05] MEDS ORDERED: Magnesium Oxide TAB* 400 MG PO SCH (11:00)
[2017-04-05] MEDS: Potassium Chlor TAB* 10 MEQ TAB.ER PO SCH ×3 (14:08→20:50)
[2017-04-05] MEDS: Cetirizine* 10 MG TAB PO SCH (18:05)
[2017-04-05] MEDS: DOXYcycline CAP(*) 100 MG PO SCH (20:51)
[2017-04-05] MEDS ORDERED: Montelukast Sodium TAB* 10 MG PO SCH (21:00)
[2017-04-05] MEDS: Ondansetron INJ* 2 MG/ML VIAL IV PRN (21:35)
[2017-04-06] MEDS: Levothyroxine TAB* 100 MCG TAB PO SCH (06:10)
[2017-04-06] MEDS: Heparin VIAL(*) 5000 UNITS/ML VIAL (FIVE THOUSAND) SUBCUT SCH ×2 (06:11→13:59)
[2017-04-06 06:49] LABS: Hematocrit 33 % (35-47); Hemoglobin 10.6 g/dl (12.0-16.0); Mean Corpuscular HGB Conc 32 g/dl (31-36); Mean Corpuscular Hemoglobin 30 pg (27-31); Mean Corpuscular Volume 93 fL (80-97); Mean Platelet Volume 8 um3 (7.4-10.4); Red Blood Count 3.56 10^6/ul (4.0-5.4); Red Cell Distribution Width 14 % (10.5-15); White Blood Count 6.3 10^3/ul (3.5-10.8)
[2017-04-06 06:56] LABS: BUN/Creatinine Ratio 10.4 (8-20); Calcium 8.5 mg/dL (8.6-10.3); EGFR African American 108.1 (>60); EGFR Non-African American 84.1 (>60); Magnesium 1.6 mg/dL (1.9-2.7); Potassium 4.4 mmol/L (3.5-5.0)
[2017-04-06] MEDS: Ondansetron ODT TAB* 4 MG SL PRN (07:24)
[2017-04-06] MEDS: DOXYcycline CAP(*) 100 MG PO SCH (07:24)
[2017-04-06] MEDS: Sertraline* 50 MG TAB PO SCH (07:24)
[2017-04-06] MEDS: Potassium Chlor TAB* 10 MEQ TAB.ER PO SCH ×3 (07:24→17:38)
[2017-04-06] MEDS: oxyCODONE SR TAB(*) 40 MG TAB.SR PO SCH (07:25)
[2017-04-06] MEDS: oxyCODONE TAB* 5 MG TAB PO PRN ×2 (07:25→13:58)
[2017-04-06] MEDS: Mometasone/Formoter 200/5 MDI INH SCH (07:27)
[2017-04-06] MEDS: MAGNESIUM GLUCONATE 500 MG PO SCH ×3 (07:29→17:38)
--- NOTE | 2017-04-06 13:52 | DS ---
DATE OF ADMISSION: 04/01/2017. DATE OF DISCHARGE: 04/06/2017. DISCHARGE DIAGNOSES: 1. Abdominal pain due to small bowel obstruction and ventral hernia. 2. History of asthma. 3. History of hypertension. 4. Hypothyroidism. 5. History of lower extremity edema. 6. Spinal stenosis, low back pain. 7. Anxiety and depression. 8. Neuropathy. 9. 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 10. History of recent right humerus fracture. 11. Muscular left trapezius pain. 12. Hypomagnesemia. HISTORY: Zaida Duke is an 82-year-old woman admitted with crampy abdominal pain. Please see the dictated admission note for details of the present illness , past medical history, family history, social and personal history, review of systems and physical examination. LABORATORY DATA: Labs on March 31: CBC: WBC 7.9, H and H 11.3/34, MCV 89, PLT 325k. INR 0.94. Chemistries: Sodium 137, potassium 3.5, chloride 99, CO2 28, BUN 30, creatinine 0.94, glucose 100, magnesium 1.7, CRP 80.66, the rest of her comprehensive metabolic panel was normal. Lipase was normal at 34. Subsequent potassium went down as low as 3.1 on April 05 and was repleted. C -reactive protein came down to 67.05 on April 03. Amylase was normal on April 02. BNP was 170 on April 02. Magnesium went down as low as 1.4 on April 04, was 1.8 on April 05, 1.6 on April 06. Urinalysis: Straw, clear, specific gravity 1.010, pH 5, dipstick is positive for trace esterase, 1 + WBC, epithelial cells present, bacteria 1+; on April 03, straw, clear, specific gravity 1.010, ketones 2+, esterase trace, squamous epithelial cells presents. MRSA screen was negative. Urine culture on March 31 showed enterococcus faecalis 50 to 75,000 colonies. She is asymptomatic. A repeat urine culture done on April 03 was no growth. IMAGIN. Abdominal/pelvis CT on 03/31/2017 showed worsening in the size of the diastases recti and volume of bowel loops herniating through the abdominal wall defect and into the pannus. The small bowel entering the hernia sac measured up to 4.1 cm in diameter while the exiting distal terminal ileum was decompressed, indicating a degree of partial obstruction. Trace ascites and infiltration of the mesenteric fat that has herniated into the abdominal wall defect was noted. Additional chronic, degenerative and iatrogenic findings were noted. Surgical absence of the uterus. Mildly calcified abdominal aortic and iliac arteries. Chronic degenerative changes of the lower thoracic and lumbar spine, including a dextroconvex scoliosis. Multilevel vacuum disk phenomenon. Loss of intervertebral disk height. Osteophyte formation. Similar to previous CT in 2014. 2. Abdominal x-ray on 04/02/2017 showed mild partial small bowel obstruction with CT contrast passing into the right colon. 3. Abdominal x-ray on 04/03/2017 showed nonspecific bowel gas pattern. Oral contrast noted in the colon. HOSPITAL COURSE: The patient was initially admitted. She was felt to have a small bowel obstruction. An NG tube was placed for decompression. She was NPO. She received IV fluids, initially with normal saline and then eventually KCL was added because of low potassium. Pain control was given with Hydromorphone initially and then Oxycodone p.o. Surgical consultation was given by Dr. Rodriguez, who followed the patient. He recommended treatment as noted above and then removal of the NG tube and progression of the diet. Her thyroid was treated with half dose Levothyroxine. Heparin subcu and SCD's were ordered for DVT prophylaxis. She gradually improved. Her potassium was repleted. I discussed the case with the surgeon who has operated on her in [place], Dr. Tiwari. He agreed to take her in surgical transfer if she did not improve. By April 02, she was feeling a little bit better, had had a small hard brown stool. Pain still remained 8/10. She was taking Hydromorphone for pain. It was felt that if she had a urinary tract infection it had cleared on its own. Repeat urine was negative and it was felt that the first urine had probably not been a clean catch. As her pain improved and her bowels started to move, her diet was slowly advanced from clear liquids to full liquids to soft. On the night of April 04, she had a bad stomachache, heartburn, and so her diet was cut back from soft to full liquids. She had had a bowel movement on April 04, did not have one on April 05 or , felt to be due to the fact she was not eating much. On exam on April 05, she had slightly more abdominal distention than she had had the previous day , but bowel sounds were present. On the night of April 05, she vomited after taking her potassium. By April 06, she was tolerating diet better. She had eaten a soft diet with eggs. Today, she is tolerating soft diet. She vomited last night after taking KCL and not since. She has taken potassium today with ice cream, kept it down. She denies abdominal pain. Her vital signs are blood pressure 109/43, pulse 82, respirations 16, temperature 97.3, O2 sat 99 percent. Her chest was clear. Her heart is regular. Her abdomen shows the large ventral hernia, distended, mildly tender without rebound. She is complaining of muscular pain in the left trapezius and anterior chest region. It hurts to move her arm. On exam, this area is tender on the left, not tender on the right. She has pain with movement of her left arm. I and O for the past 24 hours was 1487/1250. CBC: WBC 6.3, H and H 10.6/33, PLT 271k, BNP is essentially normal, magnesium is slightly low at 1.6. I feel that her small bowel obstruction has resolved. Her hypokalemia has resolved. She has mild hypomagnesemia which is chronic for her. She is on magnesium replacement. Her chronic back pain is controlled with the Oxycodone. She feels ready for discharge. Her diet should be soft. Activities as tolerated. She will have skilled care with [facility]. MEDICATIONS: 1. Fluticasone two sprays each nostril daily. 2. Furosemide 40 mEq one day as needed for swelling of the legs (take only as needed). 3. Potassium Chloride 20 mEq four times a day. 4. Sertraline 50 mg twice a day. 5. Mag-G four times a day. 6. Singulair 10 mg once a day. 7. [id number]/Hydrochlorothiazide 25 mg once a day. 8. Zofran 8 mg three times a day as needed for nausea. 9. Methocarbamol 500 mg one to two 4 times a day as needed for muscle spasm. 10. Levothyroxine 100 mcg once a day. 11. Doxycycline 100 mg twice a day. 12. Spiriva Respimat two inhalations daily. 13. Oxycodone 5 mg one to two every 6 hours as needed for pain. 14. OxyContin 40 mg every 12 hours. 15. Dulera 200 mcg/5 mcg two puffs twice a day. 16. Levocetirizine 5 mg once a day. She will be followed by [facility]. She will be seeing me in seven days. [id number]/[facility]PS #: [id number] [facility]
[2017-04-06 17:18] VITALS: BP 125/52
[2017-04-06] MEDS: Cetirizine* 10 MG TAB PO SCH (17:53)
== END 2017-04-06 19:06 | disposition home or self-care (01) | DRG 395 ==
LOC: ED 20:33 → SSU 04-01 00:41
PROVIDERS: ADMIT Hospitalist; ATTEND Internal Medicine Geriatric Medicine
DX: K43.0 Incisional hernia with obstruction, without gangrene (principal); T81.89XA Other complications of procedures, not elsewhere classified, initial encounter; G62.9 Polyneuropathy, unspecified; E83.42 Hypomagnesemia; I10 Essential (primary) hypertension; J45.909 Unspecified asthma, uncomplicated; E03.9 Hypothyroidism, unspecified; M48.00 Spinal stenosis, site unspecified; F41.8 Other specified anxiety disorders; E87.6 Hypokalemia; Z86.711 Personal history of pulmonary embolism; Z79.891 Long term (current) use of opiate analgesic; Z79.899 Other long term (current) drug therapy; Z88.1 Allergy status to other antibiotic agents; Z91.041 Radiographic dye allergy status; Z88.0 Allergy status to penicillin; Z88.2 Allergy status to sulfonamides; Z88.8 Allergy status to other drugs, medicaments and biological substances; Z91.048 Other nonmedicinal substance allergy status; Z96.653 Presence of artificial knee joint, bilateral; Z80.9 Family history of malignant neoplasm, unspecified; X58.XXXA Exposure to other specified factors, initial encounter
CPT/HCPCS: 36415; 74020; 74176; 80048; 80053; 81003; 81015; 82150; 83605; 83690; 83735; 83880; 84100; 85025; 85027; 85610; 86140; 87077; 87086; 87186; 87641; 94640; 94760; A9270-GY; J0780; J1170; J1200; J1644; J2270; J2405; J3475; J3480

== ENCOUNTER 2017-08-16 12:58 | Inpatient (IN) | payer MEDICARE ==
--- NOTE | 2017-08-16 15:22 | ED ---
Sepsis HPI - HPI Summary HPI Summary: 82 female presents to ED accompanied by son sent over by Dr Wynn office after being diagnosed with a right lower extremity cellulitis/knee infection that began yesterday 08/15/17. Patient states she had similar infection 1 year ago around the same time. Had bilateral knee replacements without issue up until last year. Patient states she was in the hospital for pneumonia and ended up getting MRSA of her right lower leg. Has been fine since until yesterday when redness, pain and swelling returned in lower right leg/knee. Patient's son states she had a stomach bug this past wednesday08/13/17 and he noticed her leg appeared slightly more swollen than the left. Redness, fever of 101F and pain did not begin until yesterday. Patient states bearing weight and walking increases pain. Denies known fever today. Took ibuprofen yesterday with relief from pain and fever. Denies any recent nausea/vomiting other than Wednesday when she ate rotten chicken liver. No other complaints. Denies numbness/tingling. Total knee replacements were done years ago. Dr Wynn is concerned for infection /sepsis as she has history. Does have history of one DVT ~8years ago. - History of Current Complaint Chief Complaint: EDExtremityLower Time Seen by Provider: 08/16/17 14:46 Stated Complaint: RT KNEE POSSIBLE INFECTION Hx Obtained From: Patient, Family/Associate Software Developer - son Onset/Duration: Started Days Ago - yesterday, Still Present, Worse Since Timing: Constant Onset Severity: Moderate Current Severity: Severe Pain Intensity: 9 Pain Scale Used: 0-10 Numeric Aggravating Symptom(s): Other: - bearing weight, walking Alleviating Factor(s): OTC Meds - ibuprofen Associated Signs & Symptoms: Leg Swelling, Swelling, Other - erythema, pain of lower extremity , fever - Additional Pertinent History Primary Care Physician: [id number] - Allergy/Home Medications Allergies/Adverse Reactions: Allergies Allergy/AdvReac Type Severity Reaction Status Date / Time Iodine Allergy Anaphylatic Verified 07/05/17 09:35 Shock Penicillins Allergy Hives/Diff. Verified 07/05/17 09:35 Breathing/I tching Adhesive Tape AdvReac Rash Verified 07/05/17 09:35 Ciprofloxacin [From Cipro] AdvReac Vomiting Verified 07/05/17 09:35 Erythromycin AdvReac Vomiting Verified 07/05/17 09:35 Sulfa Drugs AdvReac Nausea Verified 07/05/17 09:35 Tetracycline AdvReac Nausea Verified 07/05/17 09:35 CT CONTRAST Allergy Severe HIVES/DIFFICULTY Uncoded 07/05/17 09:35 BREATHING PMH/Surg Hx/FS Hx/Imm Hx Endocrine/Hematology History: Reports: Hx Thyroid Disease, Hx Anemia Denies: Hx Diabetes Cardiovascular History: Reports: Hx Angina, Hx Deep Vein Thrombosis, Hx Embolism , Hx Hypertension, Other Cardiovascular Problems/Disorders Denies: Hx Coronary Artery Disease, Hx Myocardial Infarction, Hx Pacemaker/ ICD Respiratory History: Reports: Hx Asthma, Hx Pneumonia, Hx Pulmonary Embolism - 2012 AFTER HAVING PNEUMONIA, Hx Seasonal Allergies, Other Respiratory Problems/ Disorders - PNEUMONIA- >2 YEARS AGO GI History: Reports: Hx Gastroesophageal Reflux Disease, Hx Hiatal Hernia, Other GI Disorders - hernia repair x3, colon resection Denies: Hx Jaundice History: Reports: Other Problems/Disorders - BLADDER INFECTION, CKD stage II - pt. denies CKD, per H+P CKD Denies: Hx Renal Disease Musculoskeletal History: Reports: Hx Arthritis, Hx Back Problems - chronic low back pain, Hx Gout, Hx Orthopedic Injury - fx left shoulder, Hx Scoliosis, Other Musculoskeletal History - bilateral knee replacement, lower right leg cellulitis Sensory History: Reports: Hx Cataracts Denies: Hx Hearing Aid Comment Only: Hx Contacts or Glasses - For reading Opthamlomology History: Reports: Hx Cataracts Comment Only: Hx Contacts or Glasses - For reading Neurological History: Reports: Hx Nerve Disease - "stocking feet" tremors, Other Neuro Impairments/Disorders - spinal stenosis. PAIN CLINIC PT Psychiatric History: Reports: Hx Anxiety, Hx Depression Denies: Hx Panic Disorder - Surgical History Surgery Procedure, Year, and Place: [place] [facility] [place]. lumbar discectomy 30 yrs ago. Abdominal Obstruction/Hernia Repair with Mesh syr 2012 - hernia repair x3 and replacement of infected mesh. Hysterectomy. right tkr 03/2014 [facility] [place]. left TKR 08/23 [facility] [place]. right macular hole repair syr. [place]ilateral [place] [facility] [place] Revision right total knee secondary to infection 2017 Hx Anesthesia Reactions: No - Immunization History Immunizations Up to Date: Yes Infectious Disease History: Yes Infectious Disease History: Reports: Hx of Known/Suspected MRSA - see above, History Other Infectious Disease Denies: Traveled Outside the [place] in Last 30 Days - Family History Known Family History: Positive: Hypertension - Social History Alcohol Use: Occasionally Hx Substance Use: No Substance Use Type: Reports: Prescribed Hx Tobacco Use: No Smoking Status (MU): Never Smoked Tobacco Have You Smoked in the Last Year: No Review of Systems Positive: Fever, Chills Cardiovascular: Negative Respiratory: Negative Positive: Arthralgia, Myalgia, Edema - right lower extremity Positive: Other - erythem and edeam right lower extremity Neurological: Negative All Other Systems Reviewed And Are Negative: Yes Physical Exam Triage Information Reviewed: Yes Vital Signs On Initial Exam: Initial Vitals Temp Pulse Resp BP Pulse Ox 99.5 F 83 17 130/85 97 08/16/17 13:02 08/16/17 13:02 08/16/17 13:02 08/16/17 13:02 08/16/17 13:02 Vital Signs Reviewed: Yes Appearance: Positive: Well-Appearing, Well-Nourished, Pain Distress - moderate Skin: Positive: Warm, Skin Color Reflects Adequate Perfusion, Dry, Erythema @ - below right knee to foot, warm, tender and edematous, blanchable without drainage or weeping appears cellulitis like. Negative: Cold, Numb, Cyanosis @, Jaundiced Head/Face: Positive: Normal Head/Face Inspection Eyes: Positive: Conjunctiva Clear Neck: Positive: Supple, Nontender Respiratory/Lung Sounds: Positive: Clear to Auscultation, Breath Sounds Present. Negative: Rales, Rhonchi, Wheezes Cardiovascular: Positive: Normal, RRR, Pulses are Symmetrical in both Upper and Lower Extremities - 2+ pedal. Negative: Murmur, Rub Musculoskeletal: Positive: Strength/ROM Intact, Limited @ - RLE below knee, Abnormal @ - skin exam as noted above, Pain @ - with touch and movement of right lower extremity/knee, Edema Right - distal LE Neurological: Positive: Normal, Sensory/Motor Intact, Alert, Oriented to Person Place, Time, NV Bundle Intact Distally, Unable to Assess Gait - due to pain Diagnostics - Vital Signs Vital Signs Temp Pulse Resp BP Pulse Ox 08/16/17 15:01 98 08/16/17 14:47 90 98 08/16/17 14:45 135/54 08/16/17 13:02 99.5 F 83 17 130/85 97 - Laboratory Result Diagrams: 08/16/17 15:20 08/16/17 15:20 Lab Statement: Any lab studies that have been ordered have been reviewed, and results considered in the medical decision making process. - Radiology chest Xray Interpretation: No Acute Changes - NO ACTIVE CARDIOPULMONARY DISEASE. Radiology Interpretation Completed By: Radiologist - and myself - Ultrasound No standard instances Ultrasound Interpretation: Positive (See Comments) - There is nonocclusive thrombus noted within the right posterior tibial vein. Ultrasound Interpretation Completed By: Radiologist - EKG EKG Cardiac Rate: NL EKG Rhythm: Sinus Rhythm ST Segment: Normal Ectopy: None EKG Interpretation: NSR, ventricular premature complex, left atrial enlargement , EKG Comparison: No Significant Change Course/Dx - Course Course Of Treatment: normal vitals. low grade fever 99.5F. given fluids and pain managment. labs, chest xray and EKG obtained. UA obtained. u/s of veins of RLE obtained and negative to rule out DVT. Showed a non occlusive thrombus of right posterior tibial anamaria. Elevated WBC wtih left shift, and showing signs of anemia, which appears chronic when speaking with patient and comparing to previous visits. Spoke with Dr Medellin who stated patient will be admitted by Ginger MALDONADO and she will consulted. Also made aware that patient had + US. - Differential Dx/Clinical Impression Differential Diagnosis/HQI/PQRI: Sepsis, Other - infection of prosthesis, cellulitis, DVT Provider Diagnosis: Cellulitis of lower leg, DVT, lower extremity - Provider Notifications Discussed Care Of Patient With: Ginger Ravi Time Discussed With Above Provider: 16:26 Instructed by Provider To: Admit As Inpatient Discharge - Discharge Plan Condition: Stable Disposition: ADMITTED TO [facility] Referrals: Grisel Medellin MD [Primary Care Provider] -
[2017-08-16 15:33] LABS: ABS Basophils 0 10^3/ul (0-0.2); ABS Eosinophils 0 10^3/ul (0-0.6); ABS Lymphocytes 0.8 10^3/ul (1.0-4.8); ABS Monocytes 0.7 10^3/ul (0-0.8); ABS Neutrophils 11.8 10^3/ul (1.5-7.7); ABS Nucleated RBC 0 10^3/ul; Eosinophil % 0.2 % (0-6); Hematocrit 30 % (35-47); Hemoglobin 9.6 g/dl (12.0-16.0); Lymphocyte % 6.2 % (25-47); Mean Corpuscular HGB Conc 33 g/dl (31-36); Mean Corpuscular Hemoglobin 30 pg (27-31); Mean Corpuscular Volume 90 fL (80-97); Mean Platelet Volume 8 um3 (7.4-10.4); Nucleated Red Blood Cells % 0; Platelet Count 298 10^3/ul (150-450); Red Blood Count 3.27 10^6/ul (4.0-5.4); Red Cell Distribution Width 15 % (10.5-15); White Blood Count 13.4 10^3/ul (3.5-10.8)
[2017-08-16] MEDS ORDERED: Morphine INJ* 2 MG/ML 1 ML CARPUJECT IV ONE (15:48)
[2017-08-16 15:52] LABS: INR 0.92 (0.77-1.02)
[2017-08-16] MEDS ORDERED: NS 0.9% 1000 ML* 1,000 ML IV ONE (15:53)
[2017-08-16 15:55] LABS: EGFR Non-African American 53.6 (>60)
--- NOTE | 2017-08-16 15:56 | RAD ---
HISTORY: Possible knee infection COMPARISONS: January 14, 2017 VIEWS: 1: frontal portable view of the chest at 3:33 PM. The patient is obliqued to the right. FINDINGS: LINES AND TUBES: None. CARDIOMEDIASTINAL SILHOUETTE: The cardiomediastinal silhouette is normal for portable technique. PLEURA: The costophrenic angles are sharp. No pleural abnormalities are noted. LUNG PARENCHYMA: The lungs are clear. ABDOMEN: The upper abdomen is clear. There is no subphrenic gas. BONES AND SOFT TISSUES: There is chronic appearing post traumatic change to the left shoulder. IMPRESSION: NO ACTIVE CARDIOPULMONARY DISEASE.
[2017-08-16] MEDS ORDERED: Magnesium Hydroxide LIQ* 30 ML UDC PO PRN (16:21)
[2017-08-16] MEDS ORDERED: Morphine INJ* 4 MG/ML 1 ML CARPUJECT IV PRN (16:21)
[2017-08-16] MEDS ORDERED: oxyCODONE/Acetamin 5/325 MG* TAB PO PRN (16:21)
[2017-08-16] MEDS ORDERED: diPHENhydraMINE IV* 50 MG/ML 1 ml VIAL (BENADRYL) IV PRN (16:21)
--- NOTE | 2017-08-16 16:36 | RAD ---
HISTORY: Right leg swelling and edema and pain COMPARISONS: March 17, 2017 TECHNIQUE: Multiple transverse and longitudinal ultrasound images were obtained of the right lower extremity from the level of the common femoral vein inferiorly through to the infrapopliteal veins using grayscale, color Doppler, and spectral Doppler imaging with and without compression and with augmentation. Comparison images were obtained of the contralateral common femoral vein. FINDINGS: Evaluation is limited by soft tissue swelling. VEINS: There is nonocclusive thrombus noted within the right posterior tibial vein. The remainder of the venous system of the right lower extremity is compressible throughout its course, with normal flow on color Doppler imaging and normal response to augmentation on spectral Doppler imaging. SOFT TISSUES: There is subcutaneous edema OTHER FINDINGS: None. IMPRESSION: NONOCCLUSIVE THROMBUS OF A CALF VEIN.
[2017-08-16] MEDS ORDERED: Morphine INJ* 2 MG/ML 1 ML SYRINGE (TWO MG - NEW SYRINGE VERSION) ONE (17:22)
[2017-08-16] MEDS ORDERED: oxyCODONE TAB* 5 MG TAB PO PRN (17:46)
[2017-08-16 17:48] LABS: Urine Appearance Cloudy; Urine Blood Negative (Negative); Urine Color Yellow; Urine Ketones Negative (Negative); Urine Protein Negative (Negative); Urine Specific Gravity 1.013 (1.010-1.030); Urine Urobilinogen Negative (Negative)
[2017-08-16] MEDS ORDERED: Vancomycin(*) 1,250 MG IV x ONCE IVPB ONE ×2 (18:00)
[2017-08-16] MEDS ORDERED: Vancomycin per Pharmacy* NOTE FOLLOW UP SCH (18:00)
[2017-08-16] MEDS ORDERED: Vancomycin(*) 1,250 MG in NS 0.9% 250 ML* 250 ML IVPB ONE (18:00)
[2017-08-16] MEDS ORDERED: Albuterol HFA INHALER* 8 gm MDI INH PRN (18:00)
[2017-08-16] MEDS: Potassium Chlor TAB* 20 MEQ TAB.ER PO SCH ×2 (18:49→20:56)
[2017-08-16] MEDS: oxyCODONE/Acetamin 5/325 MG* TAB PO PRN ×2 (18:49→23:08)
[2017-08-16] MEDS: Mometasone/Formoter 200/5 MDI INH SCH (20:55)
[2017-08-16] MEDS: oxyCODONE SR TAB(*) 40 MG TAB.SR PO SCH (20:56)
[2017-08-16] MEDS: Docusate CAP* 100 MG PO SCH (20:56)
[2017-08-16] MEDS: Magnesium Hydroxide LIQ* 30 ML UDC PO SCH (20:57)
[2017-08-16] MEDS: Meclizine TAB* 12.5 MG PO SCH (20:57)
--- NOTE | 2017-08-16 21:47 | CONS ---
CONSULTATION REPORT: DATE OF CONSULT: 08/16/17 PROVIDER: Román Wynn MD HISTORY OF PRESENT ILLNESS: Zaida is an 82-year-old female who presented to the emergency room accompanied by her son, sent over from Dr. Wynn's office after being diagnosed with a right lower extremity cellulitis and potential septic knee joint with symptoms beginning 08/15/17. The patient states that she had a similar infection 1 year ago around the same time of the year with a MRSA positive septic joint. She does have bilateral knee replacements. Last year when she had this infection, she had pneumonia prior to the knee infection. Up until last night, the patient was not having any pain in her knees. She was able to walk regularly, but did have trouble with doing stairs. Last night she developed redness, pain and swelling of her right knee and right lower extremity. The patient's only recent illness has been what is considered to be a stomach bug on 08/13/17 when she complained of cramping and upset stomach, but no diarrhea, constipation or vomiting. She did have nausea. She denies any dysuria and denies any fever or chills aside from on 08/13/17 with her subjective stomach bug and 08/15/17 and 08/16/17, ibuprofen did relieve the pain and fever. She was sent to the emergency room due to concern from Dr. Wynn over a septic joint. The patient also does have a history of DVT 1 year ago. She has had several operative procedures in the past, which she tolerated well. No difficulty with anesthesia. No easy bleeding or bruising. She does have a history of DVT 8 years ago, which was unprovoked. She no longer sees a wholesale representative. No history of SC or CVA. She does have a history of asthma. No other respiratory or cardiac history noted. PAST MEDICAL HISTORY: Endocrine history of thyroid disease. Cardiovascular history of angina, history of DVT, history unsure if she has had pulmonary embolism. Respiratory; history of asthma, history of pneumonia. GI, history of GERD and hiatal hernia. Musculoskeletal; history of bilateral knee replacements, scoliosis. Neuro; paresthesias of bilateral feet, not diabetic associated, history of spinal stenosis. Psych, denies anxiety and depression. PAST SURGICAL HISTORY: Appendectomy, bilateral knee replacements, lumbar diskectomy, abdominal obstruction, hernia repair, hysterectomy, retinacular hole repair, bilateral cataracts, revision of right total knee secondary to infection in 2017. ALLERGIES: IODINE, the patient tolerates on the skin, per patient IV causes anaphylaxis; PENICILLIN causing hives, difficulty breathing and itching; ADHESIVE TAPE causing rash; CIPRO causing vomiting; ERYTHROMYCIN causing vomiting; SULFA causing nausea; TETRACYCLINE causing nausea; CT CONTRAST, hives and difficulty breathing. FAMILY HISTORY: Hypertension. SOCIAL HISTORY: Occasional alcohol use. Does not smoke, does not use drugs. REVIEW OF SYSTEMS: General: Positive for fever and chills. HEENT: No changes in hearing or vision. No headache. Respiratory: No difficulty breathing. Does have a history of asthma. No cough. Cardio: No chest pain, no irregular beats, no known history of arrhythmia. GI: Nausea, cramping, but no vomiting, diarrhea, black or bloody stools. : No dysuria. Hematology: No easy bleeding or bruising. Does have a history of DVT. Psych: No anxiety or depression. PHYSICAL EXAM: General: Well appearing, in no acute distress. HEENT: Normocephalic, atraumatic. Vision and hearing are grossly intact. Respiratory : Clear to auscultation bilaterally without wheezes, rales or rhonchi. Cardiovascular: S1, S2. No audible murmur. Abdomen: Bowel sounds normoactive , no masses, nontender. : No suprapubic tenderness. Musculoskeletal: The patient is lying with right knee in full extension. She lacks any passive or active range of motion of the knee due to pain. She is grossly tender to gentle palpation of all aspects of the knee as well as from the right from the knee down to the toes, area of greatest tenderness over the knee. Skin: Erythematous from the knee to the mid foot, hot to touch. Vascular: No palpable cords. ASSESSMENT: Right lower extremity cellulitis, possible septic joint of right knee. PLAN: The patient will be admitted under Orthopedics. Dr. Grisel Medellin will be consulting. She has been contacted. I did discuss with her starting the patient on vancomycin, which will be dosed by the pharmacy. I will start her on 1 dose of heparin tonight which will then be held until after surgery. She will be n.p.o. at midnight for a washout and possible exchange of the prosthesis in her right knee. Dr. Kulkarni, Infectious Disease, has also been consulted. The patient has had 2 blood cultures. She will be having a culture of her urine prior to starting her antibiotics as well. Her DVT study did show a nonocclusive thrombus in the right popliteal region which Dr. Medellin is also aware of. LEATHA HERNANDEZ, ERICA [id number]/[facility] #: [id number] [facility]
[2017-08-16] MEDS ORDERED: Heparin VIAL(*) 5000 UNITS/ML VIAL (FIVE THOUSAND) SUBCUT SCH (22:00)
[2017-08-17] MEDS: Ondansetron INJ* 2 MG/ML VIAL IV PRN (01:05)
[2017-08-17] MEDS: Meclizine TAB* 12.5 MG PO SCH ×2 (05:15→13:17)
[2017-08-17] MEDS: Levothyroxine TAB* 100 MCG TAB PO SCH (05:15)
[2017-08-17] MEDS: Morphine INJ* 2 MG/ML 1 ML SYRINGE (TWO MG - NEW SYRINGE VERSION) IV PRN ×2 (05:20→13:32)
[2017-08-17 05:53] LABS: ABS Basophils 0 10^3/ul (0-0.2); ABS Eosinophils 0.2 10^3/ul (0-0.6); ABS Lymphocytes 1.4 10^3/ul (1.0-4.8); ABS Monocytes 0.9 10^3/ul (0-0.8); ABS Neutrophils 7.6 10^3/ul (1.5-7.7); ABS Nucleated RBC 0 10^3/ul; Eosinophil % 1.6 % (0-6); Hematocrit 27 % (35-47); Hemoglobin 8.7 g/dl (12.0-16.0); Lymphocyte % 13.4 % (25-47); Mean Corpuscular HGB Conc 33 g/dl (31-36); Mean Corpuscular Hemoglobin 30 pg (27-31); Mean Corpuscular Volume 91 fL (80-97); Mean Platelet Volume 8 um3 (7.4-10.4); Nucleated Red Blood Cells % 0; Platelet Count 259 10^3/ul (150-450); Red Blood Count 2.94 10^6/ul (4.0-5.4); Red Cell Distribution Width 15 % (10.5-15); White Blood Count 10.1 10^3/ul (3.5-10.8)
[2017-08-17] MEDS ORDERED: Vancomycin(*) 750 MG in NS 0.9% 250 ML* 250 ML IVPB SCH (06:00)
[2017-08-17 06:04] LABS: INR 0.93 (0.77-1.02)
[2017-08-17 06:08] LABS: EGFR Non-African American 68.5 (>60)
[2017-08-17] MEDS ORDERED: Chlorthalidone TAB* 50 MG PO SCH (09:00)
[2017-08-17] MEDS: Potassium Chlor TAB* 20 MEQ TAB.ER PO SCH ×3 (09:00→17:11)
[2017-08-17] MEDS: oxyCODONE SR TAB(*) 40 MG TAB.SR PO SCH (09:00)
[2017-08-17] MEDS: Sertraline* 100 MG TAB PO SCH (09:00)
[2017-08-17] MEDS: Triamterene/HCTZ 37.5-25 MG* CAP PO SCH (09:00)
[2017-08-17] MEDS: Docusate CAP* 100 MG PO SCH (09:00)
[2017-08-17] MEDS: Magnesium Hydroxide LIQ* 30 ML UDC PO SCH (09:01)
[2017-08-17] MEDS ORDERED: Methocarbamol TAB* 500 MG PO PRN (09:44)
[2017-08-17] MEDS: ESTROPIPATE 0.75 MG PO SCH (09:51)
[2017-08-17] MEDS: Mometasone/Formoter 200/5 MDI INH SCH ×2 (09:52→22:27)
[2017-08-17] MEDS: Fluticasone NASAL SPRAY 50MCG* 16 gm SPRAY BTL BOTH NARES SCH (10:48)
[2017-08-17] MEDS: Magnesium Chloride EC TAB* 64 MG PO SCH ×3 (10:48→17:11)
--- NOTE | 2017-08-17 12:39 | HP ---
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 Patient states that she was in her usual state of health until Wednesday evening when she developed pain in her right knee. She had been feeling fairly well. At the same time that her knee began to be painful, she developed erythema and swelling of her right leg. She had no other symptoms. She presented to Dr. Wynn who did a joint aspiration, removing purulent fluid from the knee. She was sent to the emergency room and admitted. The patient had been admitted here 08/09 to 09/02/16 with pneumonia with methicillin resistant Staph aureus with sepsis and presumed infected right total knee arthroplasty at that time. She was treated at that time with cefepime and vancomycin. She was seen in consultation by orthopedics at that time. She underwent washing out of the knee and replacing of the articular surface. She was seen in consultation by Dr. Kulkarni at that time and has been followed by him since then. He recommended vancomycin for 6 weeks, eventually rifampin and life long suppression. He followed her subsequently. She had been doing well until recently. Hospital course is otherwise significant for the following medical problems. 1. Hypothyroidism. 2. Asthma. 3. Hypertension. 4. Osteoarthritis. 5. History of bilateral knee replacement. 6. History of spinal stenosis, on chronic narcotics. 7. History of nausea. 8. History of vertigo. 9. Ventral hernia. PAST SURGICAL HISTORY: Includes, hernia repair in 2011, bilateral carpal tunnel release, history of colon resection, history of appendectomy, history of abdominal hernia repair, and cataract extractions. CURRENT MEDICATIONS: 1. Fluticasone 2 sprays each nostril daily. 2. Furosemide 40 mg 1 daily as needed for swelling of the legs. 3. Potassium chloride 20 mEq q.i.d. 4. Sertraline 50 mg twice a day. 5. Mag-G 4 times a day. 6. Singulair 10 mg once a day. 7. Triamterene 37.5/hydrochlorothiazide 25 mg once a day. 8. Zofran 8 mg 3 times a day as needed for nausea. 9. Methocarbamol 500 mg 1 to 2, four times a day as needed for muscle spasm. 10. Levothyroxine 100 mcg once a day. 11. Doxycycline 100 mg twice a day. 12. Spiriva Respimat 2 inhalations daily. 13. Oxycodone 5 mg 1 to 2 every 6 hours as needed for pain. 14. OxyContin 20 mg every 12 hours. 15. Dulera 200/5 two puffs twice a day. 16. Levocetirizine 5 mg once a day. 17. Many supplements which she does not have with her. ALLERGIES: IODINE, PENICILLIN, ADHESIVE TAPE, CIPRO, ERYTHROMYCIN, SULFA, TETRACYCLINE, and IODINATED CONTRAST. FAMILY HISTORY: Positive for cancer. SOCIAL AND PERSONAL HISTORY: The patient is . She lives with her son. REVIEW OF SYSTEMS: Generally, she had been feeling well. Appetite has been good. Weight has been stable. She denied fevers, chills or sweats. Skin: See above. HEENT: Negative. Nodes: Negative. Heme: Negative. Breasts: Negative. Endocrine: See above. Respiratory: See above. Cardiovascular: She had a negative stress test a year ago after she had stress induced ischemia on admission. GI: See above. : Negative. ENGINEER INTERN: Menopausal. Musculoskeletal: See above. She had fractured left shoulder last year. Neuro: Negative. Psychiatric: On chronic sertraline. PHYSICAL EXAMINATION GENERAL: She is an elderly female in no acute distress. Skin: Shows erythema of the right lower extremity. VITAL SIGNS: Blood pressure on admission 130/85, pulse 83, respirations 17, temperature 99.5. O2 sat 97%. SKIN: Erythema right lower leg. Skin of feet are calloused and cracked and dirty. HEENT: Atraumatic, normocephalic. Full EOMs. Mouth: Pharynx unremarkable. NECK: Supple. CHEST: Clear. HEART: Normal S1 and S2. No murmurs, gallops or rubs. ABDOMEN: Soft with large ventral hernia. Nontender. Normal bowel sounds. EXTREMITIES: Showed marked swelling and erythema of the right lower extremity with tenderness of the right knee. NEUROLOGIC: There are no gross focal or lateralizing signs. LABORATORY DATA/DIAGNOSTIC STUDIES: CBC on admission, WBC 13.4, H and H 9.6/30 , MCV 90, PLT 298k. Sed rate 111. INR and PTT are normal. Chemistries on admission, sodium 132, potassium 3.3, chloride 98, CO2 of 27, BUN and creatinine 27/0.99, glucose 121, Rest of her comprehensive metabolic panel was within normal limits. CRP was elevated at 303.01. Lactic acid is normal at 1.6. Microbiology, Gram stain from yesterday showed 4+ neutrophils, 3+ gram- positive cocci, MRSA negative, Staph aureus negative. Venous Doppler study of the right lower extremity showed a non-occlusive thrombus of the right calf vein. IMPRESSION: Patient with prosthetic joint infection. Cultures are pending. PLAN: Plan is to take her to the operating room today per Dr. Wynn. He says he will transfuse her. She is anemic. An ID consultation will be obtained with Dr. Kulkarni. She is full code. DVT prophylaxis/treatment of the nonocclusive thrombus will be ordered postoperatively. [id number] #: [id number] MTDD
[2017-08-17] MEDS ORDERED: Midazolam* 1 MG/ML 2 ML VIAL (2 MG) ONE (14:24)
[2017-08-17] MEDS ORDERED: fentaNYL* 50 MCG/ML 2 ML VIAL (100 MCG VIAL) ONE ×3 (14:24→17:17)
[2017-08-17] MEDS ORDERED: Bupivacaine 0.5% SDV PF* 10-30ML VIAL ONE (16:21)
[2017-08-17] MEDS ORDERED: Vancomycin(*) 1,000 MG VIAL ONE (16:34)
[2017-08-17] MEDS ORDERED: KETAMINE HCL* 50 MG/ML 10 ML VIAL ONE (16:42)
[2017-08-17] MEDS ORDERED: TOBRAMYCIN 1.2 GM ONE (17:00)
[2017-08-17] MEDS: cefTRIAXone(*) 2 GM in NS 0.9% 100 ML* 100 ML IVPB SCH (17:11)
[2017-08-17] MEDS ORDERED: Ondansetron INJ* 2 MG/ML VIAL ONE (17:46)
[2017-08-17] MEDS ORDERED: Succinylcholine* 20 MG/ML 10 ML VIAL ONE (17:46)
[2017-08-17] MEDS ORDERED: DiMENhydriNATE IV* 50 MG/ML VIAL ONE (17:46)
[2017-08-17] MEDS ORDERED: Dexamethasone IV* 4 MG/ML 1 ML (4 MG) ONE (17:46)
[2017-08-17] MEDS ORDERED: Scopolamine 1.5 mg* PATCH ONE (17:46)
[2017-08-17] MEDS ORDERED: Propofol* 10 MG/ML 20 ML BTL IV PUSH ONE ×2 (17:46→19:04)
[2017-08-17] MEDS ORDERED: Ketorolac INJ* 30 MG/ML 1 ML VIAL ONE (17:46)
[2017-08-17] MEDS: Montelukast Sodium TAB* 10 MG PO SCH (18:08)
[2017-08-17] MEDS ORDERED: Acetaminophen TAB* 325 MG PO PRN (19:11)
[2017-08-17] MEDS ORDERED: oxyCODONE TAB* 5 MG TAB PO PRN (19:11)
[2017-08-17] MEDS ORDERED: DiMENhydriNATE IV* 50 MG/ML VIAL IV PUSH PRN (19:11)
[2017-08-17] MEDS ORDERED: HYDROmorphone INJ* 1 MG/ML CARPUJECT SYRINGE ONE (19:14)
[2017-08-17] MEDS ORDERED: HYDROmorphone INJ* 2 MG/ML CARPUJECT SYRINGE ONE (20:08)
[2017-08-17] MEDS: HYDROmorphone INJ* 1 MG/ML CARPUJECT SYRINGE IV PRN ×4 (20:11→20:55)
--- NOTE | 2017-08-17 20:23 | RAD ---
INDICATION: Removal of hardware COMPARISON: August 16, 2017 TECHNIQUE: Portable AP and crosstable lateral views were obtained. FINDINGS: There is interval removal of the right knee prosthesis. There are surgical drains anterior skin christina and an overlying cooling jacket. IMPRESSION: INTERVAL HARDWARE REMOVAL
[2017-08-17] MEDS ORDERED: oxyCODONE TAB* 5 MG TAB ONE (20:41)
[2017-08-17] MEDS ORDERED: Acetaminophen TAB* 325 MG ONE (20:41)
[2017-08-17] MEDS ORDERED: Morphine INJ* 4 MG/ML 1 ML CARPUJECT ONE (21:08)
[2017-08-18] MEDS: Potassium Chlor TAB* 20 MEQ TAB.ER PO SCH ×5 (00:38→21:15)
[2017-08-18] MEDS: Magnesium Chloride EC TAB* 64 MG PO SCH ×5 (00:38→21:15)
[2017-08-18] MEDS: oxyCODONE SR TAB(*) 40 MG TAB.SR PO SCH ×3 (00:39→21:16)
[2017-08-18] MEDS: Meclizine TAB* 12.5 MG PO SCH ×4 (00:41→22:07)
[2017-08-18] MEDS: Docusate CAP* 100 MG PO SCH ×3 (00:43→21:16)
[2017-08-18] MEDS: Magnesium Hydroxide LIQ* 30 ML UDC PO SCH ×3 (00:44→21:16)
[2017-08-18] MEDS ORDERED: Vancomycin Trough Check NOTE FOLLOW UP ONE (05:30)
[2017-08-18] MEDS: Levothyroxine TAB* 100 MCG TAB PO SCH (06:11)
[2017-08-18 06:24] LABS: Hematocrit 27 % (35-47); Hemoglobin 8.7 g/dl (12.0-16.0); Mean Corpuscular HGB Conc 33 g/dl (31-36); Mean Corpuscular Hemoglobin 29 pg (27-31); Mean Corpuscular Volume 89 fL (80-97); Mean Platelet Volume 8 um3 (7.4-10.4); Platelet Count 272 10^3/ul (150-450); Red Blood Count 2.97 10^6/ul (4.0-5.4); Red Cell Distribution Width 16 % (10.5-15); White Blood Count 9.2 10^3/ul (3.5-10.8)
--- NOTE | 2017-08-18 07:22 | PN ---
Progress Note - Progress Note Date of Service: 08/18/17 Note: Awake, responsive, cooperative and breathing easily. She was able to get some rest and pain has been tolerable. Culture is pending and the gram stain had cocci. 98.6 F and H/H 8.7/27% after 1 unit of packed cells. Moves right ankle up and down. Dressing has been reinforced. Drain is in place. Imp: Stable. Acute blood loss anemia Plan: Prophylactic Lovenox dose today and start RX of DVT 08/19 OOB to chair. She is non weight bearing on the right.
[2017-08-18 07:39] LABS: EGFR Non-African American 77.4 (>60)
[2017-08-18] MEDS: Sertraline* 100 MG TAB PO SCH (09:07)
[2017-08-18] MEDS: Triamterene/HCTZ 37.5-25 MG* CAP PO SCH (09:07)
[2017-08-18] MEDS: Fluticasone NASAL SPRAY 50MCG* 16 gm SPRAY BTL BOTH NARES SCH (09:08)
[2017-08-18] MEDS: ESTROPIPATE 0.75 MG PO SCH (09:08)
[2017-08-18] MEDS: Cetirizine* 10 MG TAB PO SCH (09:08)
[2017-08-18] MEDS: Mometasone/Formoter 200/5 MDI INH SCH ×2 (09:09→19:46)
[2017-08-18] MEDS: oxyCODONE/Acetamin 5/325 MG* TAB PO PRN ×2 (09:22→14:35)
[2017-08-18] MEDS: NF:Tiotropium Respimt 2.5 mcg(NF) 1 PUFF MDI INH SCH (10:03)
[2017-08-18] MEDS ORDERED: Enoxaparin(*) 30 MG/0.3 ML SYR SUBCUT ONE (12:00)
[2017-08-18] MEDS: Morphine INJ* 2 MG/ML 1 ML SYRINGE (TWO MG - NEW SYRINGE VERSION) IV PRN (14:40)
[2017-08-18] MEDS: cefTRIAXone(*) 2 GM in NS 0.9% 100 ML* 100 ML IVPB SCH (15:24)
--- NOTE | 2017-08-18 15:56 | OP ---
CC: Dr. Grisel Medellin * DATE OF OPERATION: 08/17/17 - ROOM #338 DATE OF : 33 SURGICAL CARE: Right knee. SURGEON: Román Wynn MD ASSISTANTS: 1. ERICA Reyes 2. Shivani Cerrato, network operations center technician. ANESTHESIOLOGIST: Dr. Emely Walker. ANESTHESIA: Endotracheal tube, general. PRE-OP DIAGNOSIS: Infected right total knee replacement. POST-OP DIAGNOSIS: Infected right total knee replacement. OPERATIVE PROCEDURE: Right knee incision and drainage; limited synovectomy and debridement; cultures; irrigation; removal of all components, femoral, tibial, and patella and removal of all cement; insertion of antibiotic-impregnated spacer (tobramycin and vancomycin), methyl methacrylate. Closure with drains and splint. INDICATIONS: Infected total knee replacement. The patient had an infection of this knee replacement in August of 2016. An organism was not recovered but she received formal treatment during 2017 for bacterial infection, right knee. COMPLICATIONS: There were no complications. DRAINS: Two drains, right knee at the end of the case. ESTIMATED BLOOD LOSS: 200 mL. REPLACEMENT: 1200 cc of crystalloid fluids. CONDITION: Stable to the recovery room. DESCRIPTION OF PROCEDURE: The patient was brought to the operating room and placed on the operating room table in the supine position. The surgical care had been carefully reviewed with the patient and her son on 08/16/17 and . Their questions were answered. After the administration of the anesthetic , the patient's left leg, ankle, and foot, and her right leg, ankle, and foot were scrubbed with chlorhexidine sponges and dried and then the right leg was wrapped with proximal thigh tourniquet and the right leg was given a preliminary chlorhexidine prep at the knee and then a formal ChloraPrep from the tourniquet to the tips of the toes. These were all done after Fernández catheter was inserted shortly after the anesthetic was administered. The right lower extremity was then prepped and draped free and sealed off in the usual manner for arthroplasty of the knee. We did our universal protocol time-out confirming Zaida Duke and a plan for right knee incision and drainage ; cultures; removal of total knee components and cement; insertion of an antibiotic-impregnated spacer, the spacer was impregnated with tobramycin and vancomycin; then closure. The leg was exsanguinated. The tourniquet on the thigh elevated to 275. The knee was approached with previous skin incision anteriorly going from the medial aspect of the tibial tubercle to approximately two fingerbreadths proximal to superior pole of the patella. The knee was entered medial parapatellar and there was pus within the knee in the suprapatellar pouch and at the joint line. The patella could not be everted without undue pull on the tibial tubercle, so I elected to proceed with turndown plasty. The quadriceps was snipped 5 cm proximal to the patella obliquely to allow the patella to be retracted laterally and everted with less difficulty. The anteromedial soft tissues on the tibia were elevated subperiosteally going around to the deep MCL and then into the posteromedial corner of the knee. Some synovectomy was done superiorly, medially, and laterally. The friable tissues were removed with rongeur. The tibial articular surface was removed without difficulty. It was in good condition. The femoral component was then removed using a Gigli saw between the anterior flange going distally anteriorly as far as the Gigli saw would go and then utilizing the narrow flexible osteotome, the femoral component was loosened and then removed without difficulty. The distal femur did not have any pus within it and there was no pus underneath this component and the cement was all removed from the distal femur and gentle curettage was done here. On the tibia, the tibial component was exposed by removing a small 2 to 3 mm of bone around the proximal superior tibia and then the flexible osteotome was sent on to the tibial component medially, laterally, and anteriorly, and the tibial component could then be lifted off with impaction punch. The remainder of the tibia and the cement on the surface and around the tibial stem was then excised completely. The tibia was curetted gently and femoral and tibial areas were irrigated with saline. The patella was removed with microsagittal saw and after removal, then the 3 pegs were removed with surrounding cement. The patella was then gently curetted. None of the total knee components were loose and there was no pus underneath any or the components. At this stage, the knee was extended and irrigated with another 5 L of saline irrigation solution. The soft tissues were inspected for any pockets of pus and none were found. Two bags of cement were then mixed with powered tobramycin 2.4 g and powered vancomycin 2 g mixed within the cement spacer as the cement was hardened, was fashioned around onto the distal femur. A flange was sent anteriorly to go between the patella and the anterior distal femur and a peg was placed on the distal aspect of it to go into the tibia. The tourniquet was deflated and then closure was completed. The turndown was repaired with interrupted #1 Polysorb sutures. The turndown was repaired to the medial rectus femoris and the vastus medialis with interrupted #1 Polysorbs in figure-of-8 fashion going down to and including the medial retinaculum and then distally we closed with 0 figure-of-8 Polysorbs. The deep fascia then closed with interrupted 0 Polysorb. The superficial subcu closed with 3-0 Polysorb. Two drains were brought out through superolateral suprapatellar pouch and the skin was closed with christina. We irrigated with saline several times during the closure. The soft tissues were treated gently and the knee was then dressed with Betadine-soaked release followed by sterile gauze, sterile Webril, cryotherapy cuff, Webril from the ankle to the groin, an anterior 5-inch fiberglass slab was applied, and then this was loosely wrapped with 6-inch Asad bandage. The patient was then carefully returned to the hospital bed into the recovery room in stable and satisfactory condition having tolerated the procedure very well. [id number] #: [id number] FUNMILAYO
--- NOTE | 2017-08-18 16:04 | CONS ---
CONSULTATION REPORT: DATE OF CONSULT: 08/18/17 REQUESTING PHYSICIAN: Dr. Wynn CONSULTING SERVICE: Infectious Disease. REASON FOR CONSULTATION: Prosthetic knee infection. IMPRESSION: 1. Right prosthetic knee infection; aspiration was done 08/16/16. The culture is growing group B strep, resistant to tetracycline; sensitive to ceftriaxone, ampicillin and resistant to clindamycin. This is the part of the process from August 2016 when she had a right knee washout, liner exchange and suppressive antibiotics since then. At that time, Gram stain showed gram-positive cocci, Staph aureus PCR was negative. I suspected a coagulase-negative staph, less likely strep which is what it turned out to be. 2. Nonocclusive thrombus of right calf vein. 3. Penicillin allergy, tolerating ceftriaxone. RECOMMENDATIONS: Ceftriaxone 2 g once a day for 6 weeks and then re- aspiration. If that is negative after 2 weeks off of antibiotics, then would plan potential reimplantation with Dr. Wynn. PICC line which I will order and a weekly CBC, CMP and CRP while on IV antibiotics. HISTORY OF PRESENT ILLNESS: This is an 82-year-old woman that has history bilateral knee arthroplasties, August 2016, admitted with sepsis, pneumonia, right knee infection. She had a washout at that time, was treated with IV antibiotics for 6 weeks and then transitioned to doxycycline, which she had been taking since then and tolerating well. Her knee had been doing well during that time. She relates that over the weekend, she awoke with inability to stand up from a chair, which came on suddenly and her son noticed right leg swelling, redness. She was seen by Dr. Wynn on 08/16/16, had an aspiration, 400,000 white cells, 80% neutrophils, no crystals. The Gram stain showed gram- positive cocci in chains. Cultures growing group B strep. She was taken last night for explantation of the arthroplasty which she tolerated well. This morning she had some pain in the right knee area, but she is eating breakfast, otherwise feels okay. PAST MEDICAL HISTORY: 1. Bilateral knee arthroplasties, complicated by right knee infection 2016, status post incision and debridement. 2. Hypothyroidism. 3. Asthma. 4. Hypertension. 5. Osteoarthritis. 6. Spinal stenosis. 7. Nausea. 8. Vertigo. 9. Ventral hernia. 10. Status post hernia repair 2011. 11. Status post bilateral carpal tunnel release. 12. Status post partial colectomy. 13. Status post appendectomy. 14. Status post abdominal hernia repair. ALLERGIES: PENICILLIN, IODINE, CIPRO, ERYTHROMYCIN, SULFA and TETRACYCLINE. MEDICATIONS: 1. Ceftriaxone 2 g a day. 2. Cetirizine. 3. Enoxaparin. 4. Estropipate. 5. Fluticasone nasal spray. 6. Levothyroxine. 7. Magnesium chloride. 8. Magnesium hydroxide. 9. Meclizine. 10. Methocarbamol. 11. Singulair. 12. Oxycodone. 13. Spiriva. 14. Triamterene/hydrochlorothiazide. SOCIAL HISTORY: She lives independently. She is a nonsmoker. She has no travel. FAMILY HISTORY: Malignancy and no recurrent infection. REVIEW OF SYSTEMS: Negative 14-point review of systems except as noted above. PHYSICAL EXAMINATION: Vital Signs: Temperature 37, heart rate 60, respiration 16, blood pressure 112/40, O2 sat 100% on room air. General: She is awake, not in distress. Neurologic: She is oriented x3. Follows all commands. HEENT : There is no conjunctival hemorrhage. Oropharynx without lesions. Neck: Supple. Lymph Nodes: No inguinal, axillary or epitrochlear lymphadenopathy. Heart: Regular rate and rhythm without murmurs, rubs or gallops. Lungs: Clear to auscultation bilaterally. Abdomen: Soft, nontender and nondistended. There are bowel sounds present. Skin: There is no rash or splinter hemorrhages. Musculoskeletal: Right knee is wrapped. There is bilateral nonpitting edema. There is no erythema or warmth in the bilateral lower extremities. LABORATORY DATA: White blood cell count 9, hemoglobin 8, platelets 272, creatinine 0.7. CRP 250. Please see impressions and recommendations outlined above. Thanks for asking me to Ms. Duke in consultation. [id number]/CPS #: [id number] FUNMILAYO
[2017-08-18] MEDS: Montelukast Sodium TAB* 10 MG PO SCH (17:09)
[2017-08-18] MEDS: Methocarbamol TAB* 500 MG PO PRN (22:06)
[2017-08-19] MEDS: Levothyroxine TAB* 100 MCG TAB PO SCH (05:22)
[2017-08-19] MEDS: Meclizine TAB* 12.5 MG PO SCH ×3 (05:22→23:12)
[2017-08-19] MEDS: oxyCODONE/Acetamin 5/325 MG* TAB PO PRN ×3 (05:22→23:11)
[2017-08-19] MEDS: Mometasone/Formoter 200/5 MDI INH SCH ×2 (07:53→21:18)
--- NOTE | 2017-08-19 08:15 | PN ---
Progress Note - Progress Note Date of Service: 08/19/17 SOAP: Subjective: [] Of note dressing was soaked through 08/18- splint and dressing removed, redressed with telfa and betadine, abd's, kerlix and govind wrap. Immobilizer was placed. Objective: [] Vital Signs Temp 98.8 F 08/19/17 07:44 Pulse 89 08/19/17 07:44 Resp 16 08/19/17 07:44 BP 124/63 08/19/17 07:44 Pulse Ox 92 08/19/17 07:44 Intake & Output 08/18/17 08/19/17 08/19/17 18:59 06:59 18:59 Intake Total 460 1692 Output Total 2350 Balance 460 -658 Intake: IV Fluids 231 LR 231 IVPB 136 ABX - CEFTRIAXONE 136 Oral 460 1325 Output: Hemovac Amount #1 400 Urine 0 Straight Cath 1950 Laboratory Last Values WBC 9.2 10^3/ul (3.5-10.8) 08/18/17 06:06 RBC 2.97 10^6/ul (4.0-5.4) L 08/18/17 06:06 Hgb 8.7 g/dl (12.0-16.0) L 08/18/17 06:06 Hct 27 % (35-47) L 08/18/17 06:06 MCV 89 fL (80-97) 08/18/17 06:06 MCH 29 pg (27-31) 08/18/17 06:06 MCHC 33 g/dl (31-36) 08/18/17 06:06 RDW 16 % (10.5-15) H 08/18/17 06:06 Plt Count 272 10^3/ul (150-450) 08/18/17 06:06 MPV 8 um3 (7.4-10.4) 08/18/17 06:06 Neut % (Auto) 75.7 % (38-83) 08/17/17 05:36 Lymph % (Auto) 13.4 % (25-47) L 08/17/17 05:36 [place] % (Auto) 8.9 % (1-9) 08/17/17 05:36 Eos % (Auto) 1.6 % (0-6) 08/17/17 05:36 Baso % (Auto) 0.4 % (0-2) 08/17/17 05:36 Absolute Neuts (auto) 7.6 10^3/ul (1.5-7.7) 08/17/17 05:36 Absolute Lymphs (auto) 1.4 10^3/ul (1.0-4.8) 08/17/17 05:36 Absolute Monos (auto) 0.9 10^3/ul (0-0.8) H 08/17/17 05:36 Absolute Eos (auto) 0.2 10^3/ul (0-0.6) 08/17/17 05:36 Absolute Basos (auto) 0 10^3/ul (0-0.2) 08/17/17 05:36 Absolute Nucleated RBC 0 10^3/ul 08/17/17 05:36 Nucleated RBC % 0 08/17/17 05:36 ESR 111 mm/Hr (0-40) H 08/16/17 15:20 INR (Anticoag Therapy) 0.93 (0.77-1.02) 08/17/17 05:30 APTT 27.6 seconds (26.0-36.3) 08/17/17 05:30 Sodium 136 mmol/L (133-145) 08/18/17 06:06 Potassium 5.0 mmol/L (3.5-5.0) 08/18/17 06:06 Chloride 105 mmol/L (101-111) 08/18/17 06:06 Carbon Dioxide 23 mmol/L (22-32) 08/18/17 06:06 Anion Gap 8 mmol/L (2-11) 08/18/17 06:06 BUN 16 mg/dL (6-24) 08/18/17 06:06 Creatinine 0.72 mg/dL (0.51-0.95) 08/18/17 06:06 Est GFR ( Amer) 99.5 (>60) 08/18/17 06:06 Est GFR (Non-Af Amer) 77.4 (>60) 08/18/17 06:06 BUN/Creatinine Ratio 22.2 (8-20) H 08/18/17 06:06 Glucose 109 mg/dL (70-100) H 08/18/17 06:06 Lactic Acid 1.6 mmol/L (0.5-2.0) 08/16/17 15:20 Calcium 8.0 mg/dL (8.6-10.3) L 08/18/17 06:06 Total Bilirubin 0.70 mg/dL (0.2-1.0) 08/18/17 06:06 AST 18 U/L (13-39) 08/18/17 06:06 ALT 7 U/L (7-52) 08/18/17 06:06 Alkaline Phosphatase 72 U/L (34-104) 08/18/17 06:06 C-Reactive Protein 247.49 mg/L (< 5.00) H 08/18/17 06:06 Total Protein 4.9 g/dL (6.4-8.9) L 08/18/17 06:06 Albumin 2.2 g/dL (3.2-5.2) L 08/18/17 06:06 Globulin 2.7 g/dL (2-4) 08/18/17 06:06 Albumin/Globulin Ratio 0.8 (1-3) L 08/18/17 06:06 Urine Color Yellow 08/16/17 17:29 Urine Appearance Cloudy 08/16/17 17:29 Urine pH 5.0 (5-9) 08/16/17 17:29 Ur Specific [place] 1.013 (1.010-1.030) 08/16/17 17:29 Urine Protein Negative (Negative) 08/16/17 17:29 Urine Ketones Negative (Negative) 08/16/17 17:29 Urine Blood Negative (Negative) 08/16/17 17:29 Urine Nitrate Negative (Negative) 08/16/17 17:29 Urine Bilirubin Negative (Negative) 08/16/17 17:29 Urine Urobilinogen Negative (Negative) 08/16/17 17:29 Ur Leukocyte Esterase Negative (Negative) 08/16/17 17:29 Urine Glucose Negative (Negative) 08/16/17 17:29 Urine Ascorbic Acid * (Negative) H 08/16/17 17:29 Blood Type B Positive 08/16/17 15:20 Antibody Screen Negative 08/16/17 15:20 Crossmatch See Detail 08/16/17 15:20 Assessment: [] Plan: []Continue consults: ID, Dr Graves NWB RLE
[2017-08-19] MEDS ORDERED: Enoxaparin(*) 60 MG/0.6 ML SYR SUBCUT SCH (09:00)
[2017-08-19 09:13] LABS: ABS Basophils 0.2 10^3/ul (0-0.2); ABS Eosinophils 0.1 10^3/ul (0-0.6); ABS Lymphocytes 2.1 10^3/ul (1.0-4.8); ABS Neutrophils 7.5 10^3/ul (1.5-7.7); ABS Nucleated RBC 0 10^3/ul; Eosinophil % 1.2 % (0-6); Hematocrit 23 % (35-47); Hemoglobin 7.8 g/dl (12.0-16.0); Lymphocyte % 19.2 % (25-47); Mean Corpuscular HGB Conc 33 g/dl (31-36); Mean Corpuscular Hemoglobin 29 pg (27-31); Mean Corpuscular Volume 88 fL (80-97); Mean Platelet Volume 8 um3 (7.4-10.4); Nucleated Red Blood Cells % 0.2; Platelet Count 277 10^3/ul (150-450); Red Blood Count 2.65 10^6/ul (4.0-5.4); Red Cell Distribution Width 16 % (10.5-15); White Blood Count 10.9 10^3/ul (3.5-10.8)
--- NOTE | 2017-08-19 09:37 | PN ---
Progress Note - Progress Note Date of Service: 08/19/17 SOAP: Subjective: Day 2. Has some pain and spasms but feels help with the meds. Dressing was changed yesterday and the surgery looked satisfactory. [] Objective: Ceftriaxone 2gm iv [id number]. Strep infection right knee. DVT right leg as well. Awake, alert, cooperative and breathing easily. Hct is 23%. Able to move left thigh, knee, ankle well and exercises recommended. Right thigh dressing is intact, 2 drains removed from the right knee. Right ankle active up and down movements. Right foot some wrinkles, good color and sensory intact. []Intake 2152ml, Output 2350 she has had some urinary retention. Temp 98.9. Assessment: Stable, acute anemia and we have some concerns regarding further losses right knee and we are starting more formal treatment for DVT right leg. [] Plan: 6 weeks of ceftriaxone 2 gm IV q 24 hours. Lovenox 40 mg sq BID today Lovenox 60 mg sq BID starting 08/20 Transfuse 1 unit PRBCs today. She is agreeable to this. []
[2017-08-19] MEDS: ESTROPIPATE 0.75 MG PO SCH (09:42)
[2017-08-19] MEDS: Magnesium Chloride EC TAB* 64 MG PO SCH ×4 (09:42→21:11)
[2017-08-19] MEDS: Docusate CAP* 100 MG PO SCH ×2 (09:42→21:11)
[2017-08-19] MEDS: Magnesium Hydroxide LIQ* 30 ML UDC PO SCH ×2 (09:42→21:16)
[2017-08-19] MEDS: Sertraline* 100 MG TAB PO SCH (09:42)
[2017-08-19] MEDS: Triamterene/HCTZ 37.5-25 MG* CAP PO SCH (09:42)
[2017-08-19] MEDS: Potassium Chlor TAB* 20 MEQ TAB.ER PO SCH ×4 (09:42→21:12)
[2017-08-19] MEDS: Cetirizine* 10 MG TAB PO SCH (09:42)
[2017-08-19] MEDS: Fluticasone NASAL SPRAY 50MCG* 16 gm SPRAY BTL BOTH NARES SCH (09:42)
[2017-08-19] MEDS: oxyCODONE SR TAB(*) 40 MG TAB.SR PO SCH ×2 (09:43→21:20)
[2017-08-19] MEDS: Enoxaparin(*) 40 MG/0.4 ML SYR SUBCUT SCH ×2 (09:45→21:20)
[2017-08-19] MEDS: NF:Tiotropium Respimt 2.5 mcg(NF) 1 PUFF MDI INH SCH (09:47)
[2017-08-19] MEDS: Ondansetron INJ* 2 MG/ML VIAL IV PRN (10:23)
[2017-08-19] MEDS: cefTRIAXone(*) 2 GM in NS 0.9% 100 ML* 100 ML IVPB SCH (14:56)
[2017-08-19] MEDS ORDERED: Warfarin TAB(*) 4 MG PO ONE (17:00)
[2017-08-19] MEDS: Methocarbamol TAB* 500 MG PO PRN (17:24)
[2017-08-19] MEDS: Montelukast Sodium TAB* 10 MG PO SCH (17:25)
--- NOTE | 2017-08-19 17:34 | PN ---
Progress Note - Progress Note Date of Service: 08/19/17 Note: Patient seen at bedside. Dressing was changed. Scant bloody discharge. Wound edges appear as healthy pink tissue without erythema or discharge. Patient is very tender with dressing change. Calf with some bruising though supple and without palpable cords. DF/PF intact, 1+ DP
--- NOTE | 2017-08-19 19:26 | RAD ---
INDICATION: Change in mental status COMPARISON: August 16, 2017 TECHNIQUE: An AP portable view obtained at 1914 hours is submitted. FINDINGS: Bones/Soft Tissues: There are no acute bony findings. Cardiomediastinal: The heart is top normal in size. The central pulmonary vessels and interstitium are prominent compatible with interstitial congestion. Lungs: There are no infiltrates. Pleura: Small bilateral effusions. Other: None IMPRESSION: MILD TO MODERATE INTERSTITIAL CONGESTION FINDINGS NEW SINCE AUGUST 16, 2017
[2017-08-19 19:36] LABS: Hematocrit 26 % (35-47); Hemoglobin 8.6 g/dl (12.0-16.0); Mean Corpuscular HGB Conc 34 g/dl (31-36); Mean Corpuscular Hemoglobin 30 pg (27-31); Mean Corpuscular Volume 88 fL (80-97); Mean Platelet Volume 7 um3 (7.4-10.4); Platelet Count 336 10^3/ul (150-450); Red Cell Distribution Width 15 % (10.5-15); White Blood Count 9.9 10^3/ul (3.5-10.8)
[2017-08-19 19:46] LABS: EGFR Non-African American 65.7 (>60)
[2017-08-19] MEDS ORDERED: Furosemide IV* 10 MG/ML 2 ML VIAL (20 MG) IV ONE (21:00)
[2017-08-19] MEDS: SENNA PO PRN (21:15)
[2017-08-19 21:54] LABS: Urine Appearance Clear; Urine Blood Negative (Negative); Urine Color Colorless; Urine Ketones Negative (Negative); Urine Protein Negative (Negative); Urine Specific Gravity 1.004 (1.010-1.030); Urine Urobilinogen Negative (Negative)
[2017-08-20] MEDS: oxyCODONE/Acetamin 5/325 MG* TAB PO PRN ×2 (04:34→12:25)
[2017-08-20] MEDS: Ondansetron INJ* 2 MG/ML VIAL IV PRN (04:36)
[2017-08-20] MEDS: Levothyroxine TAB* 100 MCG TAB PO SCH (05:46)
[2017-08-20] MEDS: Meclizine TAB* 12.5 MG PO SCH ×3 (05:47→20:15)
[2017-08-20 05:57] LABS: ABS Basophils 0 10^3/ul (0-0.2); ABS Eosinophils 0.2 10^3/ul (0-0.6); ABS Lymphocytes 1.6 10^3/ul (1.0-4.8); ABS Monocytes 0.9 10^3/ul (0-0.8); ABS Neutrophils 5.9 10^3/ul (1.5-7.7); ABS Nucleated RBC 0 10^3/ul; Hematocrit 24 % (35-47); Hemoglobin 8.1 g/dl (12.0-16.0); Lymphocyte % 19.1 % (25-47); Mean Corpuscular HGB Conc 34 g/dl (31-36); Mean Corpuscular Hemoglobin 30 pg (27-31); Mean Corpuscular Volume 88 fL (80-97); Mean Platelet Volume 7 um3 (7.4-10.4); Nucleated Red Blood Cells % 0.1; Platelet Count 320 10^3/ul (150-450); Red Blood Count 2.73 10^6/ul (4.0-5.4); Red Cell Distribution Width 15 % (10.5-15); White Blood Count 8.6 10^3/ul (3.5-10.8)
[2017-08-20 06:03] LABS: INR 1.03 (0.77-1.02)
[2017-08-20 06:13] LABS: EGFR Non-African American 64.8 (>60)
--- NOTE | 2017-08-20 08:44 | PN ---
Progress Note - Progress Note Date of Service: 08/20/17 SOAP: Subjective: 82 y/o female with infected R TKA s/p removal of hardware with ABX spacer placed 08/[address] Wynn. Tmax overnight 100.5, mild tachy, resolved. -5L yesterday. Patient reports muscle spasms, controlled with at home medication. eating well, seen with daughter at bedside. Objective: General- Well appearing, NAD AO MSK- L LE- Dressing removed, incision c/d/i, no erythema, drainage noted, redressed with betadine soaked telfa, gauze, and DIONNE. No bleeding noted, no blood on gauze. + DF/PF, mild erythema without warmth lower extremity. PT 1+ , moderate edema. Sensation decreased from ankle down in comparison to calf. Vital Signs Temp 97.2 F 08/20/17 07:22 Pulse 74 08/20/17 07:22 Resp 16 08/20/17 09:02 BP 139/62 08/20/17 07:22 Pulse Ox 100 08/20/17 07:22 Intake & Output 08/19/17 08/20/17 08/20/17 18:59 06:59 18:59 Intake Total 1449 800 Output Total 525 7000 1900 Balance 924 -6200 -1900 Intake: IV Fluids 873 LR 815 NS (0.9%) 58 Oral 250 800 Packed Cells 326 Output: Urine 525 Fernández 4600 1900 Residual 2400 16 Fr 2400 Assessment: Stable 82 y/o female with infected R TKA s/p removal of hardware with ABX spacer placed 08/[address] Wynn. Plan: - Cultures- Strep Alag., C&S pending Neg MRSA. Dr. Yu following, Cetriaxone IV - DVT prophyl- coumadin 4mg tonight, INR goal 2-3 w current DVT - PICC line pending - Rehab/ JEFFRY pending - post-op anemia- continue to decline despite -5L, asymp, continue to monitor
[2017-08-20] MEDS: Magnesium Chloride EC TAB* 64 MG PO SCH ×4 (08:53→20:14)
[2017-08-20] MEDS: Sertraline* 100 MG TAB PO SCH (08:53)
[2017-08-20] MEDS: Potassium Chlor TAB* 20 MEQ TAB.ER PO SCH ×4 (08:53→20:15)
[2017-08-20] MEDS: oxyCODONE SR TAB(*) 40 MG TAB.SR PO SCH ×2 (08:53→20:15)
[2017-08-20] MEDS: Docusate CAP* 100 MG PO SCH ×2 (08:54→20:03)
[2017-08-20] MEDS: Triamterene/HCTZ 37.5-25 MG* CAP PO SCH (08:54)
[2017-08-20] MEDS: Cetirizine* 10 MG TAB PO SCH (08:54)
[2017-08-20] MEDS: ESTROPIPATE 0.75 MG PO SCH (08:55)
[2017-08-20] MEDS: SENNA PO PRN (08:57)
[2017-08-20] MEDS: Magnesium Hydroxide LIQ* 30 ML UDC PO SCH ×2 (08:57→20:02)
[2017-08-20] MEDS: Enoxaparin(*) 60 MG/0.6 ML SYR SUBCUT SCH ×2 (08:58→20:16)
[2017-08-20] MEDS: Mometasone/Formoter 200/5 MDI INH SCH ×2 (08:59→20:13)
[2017-08-20] MEDS: TIOTROPIUM INH SCH (09:00)
[2017-08-20] MEDS ORDERED: Furosemide IV* 10 MG/ML 2 ML VIAL (20 MG) IV ONE (09:00)
[2017-08-20] MEDS: Fluticasone NASAL SPRAY 50MCG* 16 gm SPRAY BTL BOTH NARES SCH (09:02)
[2017-08-20] MEDS: [UNRECOGNIZED DRUG - OTHER] PO SCH (11:16)
[2017-08-20] MEDS: GINKGO PO SCH (11:18)
[2017-08-20] MEDS: CHROMIUM PICOLINATE 500 MCG PO SCH (11:18)
[2017-08-20] MEDS: GLUCOSAMINE CHONDROITIN MSM PO SCH (11:18)
[2017-08-20] MEDS: GREEN TEA EXTRACT PO SCH (11:19)
[2017-08-20] MEDS: [UNRECOGNIZED DRUG - OTHER] PO SCH (11:19)
--- NOTE | 2017-08-20 11:19 | PN ---
Progress Note - Progress Note Date of Service: 08/20/17 Note: !00.5, VS stable. Hct 24%, INR is normal. Ceftriaxone 2 gm q 24 h, Starting Coumadin and bridging with lovenox. Better oriented today. She received Lasix 20mg IV last PM and this AM. Intake 2230ml and output 5-7 liters but she has not hemoconcentrated. Right knee surgery checked by Michi Belcher and looked very good on the wound edges. Imp Stable. Volume overload responded nicely to lasix. Anemia being followed carefully and she did not hemoconcentrate after a large diuresis so further losses could be going on. Continue Coumadin. Check H/H and lytes 08/21 with this surgery and large diuresis.
[2017-08-20] MEDS: cefTRIAXone 2 GM in D5W 50 ML BAG IV SCH (14:43)
[2017-08-20] MEDS: oxyCODONE TAB* 5 MG TAB PO PRN (14:48)
--- NOTE | 2017-08-20 16:13 | PN ---
Progress Note - Progress Note Date of Service: 08/20/17 SOAP: Subjective: CC: prosthetic right knee infection HPI: 82 year old woman who removal of right knee arthroplasty, pain is well controlled today. Eating ok, no fever, rash, or diarrhea. Objective: Vital Signs Temp 36.7 C 08/20/17 15:45 Pulse 79 08/20/17 15:45 Resp 16 08/20/17 15:45 BP 113/40 08/20/17 15:45 Pulse Ox 99 08/20/17 15:45 Intake & Output 08/19/17 08/20/17 08/20/17 18:59 06:59 18:59 Intake Total 1449 800 640 Output Total 525 7000 2575 Balance 814 -6826 -6103 Intake: IV Fluids 873 LR 815 NS (0.9%) 58 Oral 250 800 640 Packed Cells 326 Output: Urine 525 Fernández 4600 2575 Residual 2400 16 Fr 2400 Gen:awake, no distress HEENT:PERRL, MMM Heart:RRR no murmur Lungs:CTA BL Abd:+BS NTND soft Skin: no rash MSK: R knee diffuse edema no erythema Laboratory Results - last 24 hr 08/16/17 08/19/17 08/19/17 15:20 19:20 19:20 WBC 9.9 RBC 2.90 L Hgb 8.6 L Hct 26 L MCV 88 MCH 30 MCHC 34 RDW 15 Plt Count 336 MPV 7 L Neut % (Auto) Lymph % (Auto) [place] % (Auto) Eos % (Auto) Baso % (Auto) Absolute Neuts (auto) Absolute Lymphs (auto) Absolute Monos (auto) Absolute Eos (auto) Absolute Basos (auto) Absolute Nucleated RBC Nucleated RBC % INR (Anticoag Therapy) Sodium 132 L Potassium 4.8 Chloride 103 Carbon Dioxide 25 Anion Gap 4 BUN 16 Creatinine 0.83 Est GFR ( Amer) 84.4 Est GFR (Non-Af Amer) 65.7 BUN/Creatinine Ratio 19.3 Glucose 110 H Calcium 8.2 L Total Bilirubin AST ALT Alkaline Phosphatase C-Reactive Protein Total Protein Albumin Globulin Albumin/Globulin Ratio Urine Color Urine Appearance Urine pH Ur Specific [place] Urine Protein Urine Ketones Urine Blood Urine Nitrate Urine Bilirubin Urine Urobilinogen Ur Leukocyte Esterase Urine Glucose Blood Type B Positive Antibody Screen Negative Crossmatch See Detail 08/19/17 08/20/17 08/20/17 21:41 05:44 05:44 WBC 8.6 RBC 2.73 L Hgb 8.1 L Hct 24 L MCV 88 MCH 30 MCHC 34 RDW 15 Plt Count 320 MPV 7 L Neut % (Auto) 68.4 Lymph % (Auto) 19.1 L [place] % (Auto) 9.9 H Eos % (Auto) 2.0 Baso % (Auto) 0.6 Absolute Neuts (auto) 5.9 Absolute Lymphs (auto) 1.6 Absolute Monos (auto) 0.9 H Absolute Eos (auto) 0.2 Absolute Basos (auto) 0 Absolute Nucleated RBC 0 Nucleated RBC % 0.1 INR (Anticoag Therapy) Sodium 135 Potassium 4.1 Chloride 103 Carbon Dioxide 27 Anion Gap 5 BUN 14 Creatinine 0.84 Est GFR ( Amer) 83.3 Est GFR (Non-Af Amer) 64.8 BUN/Creatinine Ratio 16.7 Glucose 107 H Calcium 8.3 L Total Bilirubin 0.40 AST 19 ALT 7 Alkaline Phosphatase 59 C-Reactive Protein 152.72 H Total Protein 5.6 L Albumin 2.4 L Globulin 3.2 Albumin/Globulin Ratio 0.8 L Urine Color Colorless Urine Appearance Clear Urine pH 8.0 Ur Specific [place] 1.004 L Urine Protein Negative Urine Ketones Negative Urine Blood Negative Urine Nitrate Negative Urine Bilirubin Negative Urine Urobilinogen Negative Ur Leukocyte Esterase Negative Urine Glucose Negative Blood Type Antibody Screen Crossmatch 08/20/17 05:44 WBC RBC Hgb Hct MCV MCH MCHC RDW Plt Count MPV Neut % (Auto) Lymph % (Auto) [place] % (Auto) Eos % (Auto) Baso % (Auto) Absolute Neuts (auto) Absolute Lymphs (auto) Absolute Monos (auto) Absolute Eos (auto) Absolute Basos (auto) Absolute Nucleated RBC Nucleated RBC % INR (Anticoag Therapy) 1.03 H Sodium Potassium Chloride Carbon Dioxide Anion Gap BUN Creatinine Est GFR ( Amer) Est GFR (Non-Af Amer) BUN/Creatinine Ratio Glucose Calcium Total Bilirubin AST ALT Alkaline Phosphatase C-Reactive Protein Total Protein Albumin Globulin Albumin/Globulin Ratio Urine Color Urine Appearance Urine pH Ur Specific [place] Urine Protein Urine Ketones Urine Blood Urine Nitrate Urine Bilirubin Urine Urobilinogen Ur Leukocyte Esterase Urine Glucose Blood Type Antibody Screen Crossmatch Microbiology 08/16/17 15:20 Blood Venous Aerobic Blood Culture - Preliminary No Growth Day 4 08/16/17 15:20 Blood Venous Anaerobic Blood Culture - Preliminary No Growth Day 4 08/17/17 17:45 Joint Fluid(Synovial) - Knee Right Gram Stain - Final 08/17/17 17:45 Joint Fluid(Synovial) - Knee Right Body Fluid Culture - Preliminary Strep Agalactiae - (Group B) 08/17/17 17:45 Joint Fluid(Synovial) - Knee Right Skin and Soft Tissue MRSA/ MSSA (PCR - Final Mrsa Negative S.aureus Negative 08/16/17 16:45 Blood Venous Aerobic Blood Culture - Preliminary No Growth Day 3 08/16/17 16:45 Blood Venous Anaerobic Blood Culture - Preliminary No Growth Day 3 Assessment: 1. 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 PCN allergy, tolerating ceftriaxone 3. anemia Plan: 1. ceftriaxone 2 gm daily day via PICC then re-aspirate knee for culture 2. weekly cbc, cmp, crp when discharged 35 minutes floor time >50% face to face with patient and her son discussing next steps in treatment
[2017-08-20] MEDS ORDERED: Warfarin TAB(*) 5 MG PO ONE (17:00)
[2017-08-20] MEDS ORDERED: Warfarin TAB(*) 4 MG PO ONE (17:00)
[2017-08-20] MEDS: Montelukast Sodium TAB* 10 MG PO SCH (17:06)
[2017-08-21] MEDS: oxyCODONE TAB* 5 MG TAB PO PRN ×2 (03:52→15:26)
[2017-08-21] MEDS: Levothyroxine TAB* 100 MCG TAB PO SCH (05:37)
[2017-08-21] MEDS: Meclizine TAB* 12.5 MG PO SCH ×3 (05:37→23:03)
[2017-08-21] MEDS: Methocarbamol TAB* 500 MG PO PRN ×2 (05:40→12:50)
[2017-08-21 06:01] LABS: ABS Basophils 0.1 10^3/ul (0-0.2); ABS Eosinophils 0.3 10^3/ul (0-0.6); ABS Lymphocytes 2.2 10^3/ul (1.0-4.8); ABS Monocytes 0.9 10^3/ul (0-0.8); ABS Neutrophils 6.7 10^3/ul (1.5-7.7); ABS Nucleated RBC 0 10^3/ul; Eosinophil % 3.2 % (0-6); Hematocrit 25 % (35-47); Hemoglobin 8.2 g/dl (12.0-16.0); Lymphocyte % 21.6 % (25-47); Mean Corpuscular HGB Conc 34 g/dl (31-36); Mean Corpuscular Hemoglobin 30 pg (27-31); Mean Corpuscular Volume 89 fL (80-97); Mean Platelet Volume 7 um3 (7.4-10.4); Nucleated Red Blood Cells % 0.1; Platelet Count 352 10^3/ul (150-450); Red Blood Count 2.77 10^6/ul (4.0-5.4); Red Cell Distribution Width 15 % (10.5-15); White Blood Count 10.1 10^3/ul (3.5-10.8)
[2017-08-21 06:04] LABS: INR 1.14 (0.77-1.02)
[2017-08-21 06:12] LABS: EGFR Non-African American 68.5 (>60)
[2017-08-21] MEDS: Mometasone/Formoter 200/5 MDI INH SCH ×2 (07:48→20:10)
[2017-08-21] MEDS: ESTROPIPATE 0.75 MG PO SCH (08:49)
[2017-08-21] MEDS: Multivitamins/Minerals TAB PO SCH (08:50)
[2017-08-21] MEDS: Magnesium Chloride EC TAB* 64 MG PO SCH ×4 (08:52→21:29)
[2017-08-21] MEDS: Cetirizine* 10 MG TAB PO SCH (08:53)
[2017-08-21] MEDS: Triamterene/HCTZ 37.5-25 MG* CAP PO SCH (08:53)
[2017-08-21] MEDS: oxyCODONE SR TAB(*) 40 MG TAB.SR PO SCH ×2 (08:55→21:29)
[2017-08-21] MEDS: Sertraline* 100 MG TAB PO SCH (08:56)
[2017-08-21] MEDS: Docusate CAP* 100 MG PO SCH ×2 (08:56→21:28)
[2017-08-21] MEDS: Potassium Chlor TAB* 20 MEQ TAB.ER PO SCH ×4 (08:56→21:29)
[2017-08-21] MEDS: Magnesium Hydroxide LIQ* 30 ML UDC PO SCH ×2 (08:57→21:25)
[2017-08-21] MEDS: Fluticasone NASAL SPRAY 50MCG* 16 gm SPRAY BTL BOTH NARES SCH (08:58)
[2017-08-21] MEDS: GREEN TEA EXTRACT PO SCH (08:59)
[2017-08-21] MEDS: CHROMIUM PICOLINATE 500 MCG PO SCH (08:59)
[2017-08-21] MEDS: [UNRECOGNIZED DRUG - OTHER] PO SCH (09:00)
[2017-08-21] MEDS: GINKGO PO SCH (09:01)
[2017-08-21] MEDS: GLUCOSAMINE CHONDROITIN MSM PO SCH (09:01)
[2017-08-21] MEDS: [UNRECOGNIZED DRUG - OTHER] PO SCH (09:02)
[2017-08-21] MEDS: Enoxaparin(*) 60 MG/0.6 ML SYR SUBCUT SCH ×2 (09:04→21:28)
[2017-08-21] MEDS: TIOTROPIUM INH SCH (09:10)
[2017-08-21] MEDS: Ondansetron TAB* 4 MG PO PRN (09:15)
--- NOTE | 2017-08-21 10:01 | PN ---
Progress Note - Progress Note Date of Service: 08/21/17 SOAP: Subjective: [Pt reports minimal discomfort R knee. Denies CP, SOB, nausea, dizziness, headache.] Objective: [A and O x 3, NAD R knee dressing c/d/i, knee immobilizer in place. Calf soft, NT. Mild/mod swelling in R foot, toes. + DF/PF, NV function intact. Vital Signs: Temp Pulse Resp BP Pulse Ox 99.6 F 89 16 130/52 95 08/21/17 03:33 08/21/17 03:33 08/21/17 08:55 08/21/17 03:33 08/21/17 03:33 Laboratory Results - last 24 hr 08/21/17 08/21/17 08/21/17 05:47 05:47 05:47 WBC 10.1 RBC 2.77 L Hgb 8.2 L Hct 25 L MCV 89 MCH 30 MCHC 34 RDW 15 Plt Count 352 MPV 7 L Neut % (Auto) 66.0 Lymph % (Auto) 21.6 L [place] % (Auto) 8.6 Eos % (Auto) 3.2 Baso % (Auto) 0.6 Absolute Neuts (auto) 6.7 Absolute Lymphs (auto) 2.2 Absolute Monos (auto) 0.9 H Absolute Eos (auto) 0.3 Absolute Basos (auto) 0.1 Absolute Nucleated RBC 0 Nucleated RBC % 0.1 INR (Anticoag Therapy) 1.14 H Sodium 131 L Potassium 4.3 Chloride 100 L Carbon Dioxide 27 Anion Gap 4 BUN 13 Creatinine 0.80 Est GFR ( Amer) 88.1 Est GFR (Non-Af Amer) 68.5 BUN/Creatinine Ratio 16.3 Glucose 93 Calcium 8.5 L Phosphorus 3.0 Magnesium 2.0 Total Bilirubin 0.30 AST 24 ALT 8 Alkaline Phosphatase 52 C-Reactive Protein 189.89 H Total Protein 5.7 L Albumin 2.4 L Globulin 3.3 Albumin/Globulin Ratio 0.7 L ] Assessment: [82 yo female with infected R TKA s/p removal of HW with abx spacer placed on 08/17/[address] Wynn. Post-op anemia] Plan: [Con't abx (ceftriaxone via PICC) per ID DVT prophylaxis - Coumadin 6 mg today Monitor H/H, lytes Will plan D/C to [facility]]
[2017-08-21] MEDS: cefTRIAXone 2 GM in D5W 50 ML BAG IV SCH (15:19)
[2017-08-21] MEDS ORDERED: Warfarin TAB(*) 6 MG PO ONE (17:00)
[2017-08-21] MEDS: Montelukast Sodium TAB* 10 MG PO SCH (18:05)
[2017-08-21] MEDS: oxyCODONE/Acetamin 5/325 MG* TAB PO PRN (20:40)
[2017-08-22] MEDS: oxyCODONE TAB* 5 MG TAB PO PRN (00:31)
[2017-08-22] MEDS: Levothyroxine TAB* 100 MCG TAB PO SCH (05:52)
[2017-08-22 06:07] LABS: Hematocrit 24 % (35-47); Hemoglobin 7.8 g/dl (12.0-16.0); Mean Corpuscular HGB Conc 33 g/dl (31-36); Mean Corpuscular Hemoglobin 30 pg (27-31); Mean Corpuscular Volume 89 fL (80-97); Mean Platelet Volume 7 um3 (7.4-10.4); Platelet Count 368 10^3/ul (150-450); Red Blood Count 2.65 10^6/ul (4.0-5.4); Red Cell Distribution Width 15 % (10.5-15); White Blood Count 8.6 10^3/ul (3.5-10.8)
[2017-08-22 06:14] LABS: INR 1.22 (0.77-1.02)
[2017-08-22] MEDS: Meclizine TAB* 12.5 MG PO SCH ×3 (06:47→20:47)
[2017-08-22] MEDS: Enoxaparin(*) 60 MG/0.6 ML SYR SUBCUT SCH ×2 (08:26→20:51)
[2017-08-22] MEDS: Mometasone/Formoter 200/5 MDI INH SCH ×2 (08:26→19:17)
[2017-08-22] MEDS: Multivitamins/Minerals TAB PO SCH (08:26)
[2017-08-22] MEDS: oxyCODONE SR TAB(*) 40 MG TAB.SR PO SCH ×2 (08:26→20:47)
[2017-08-22] MEDS: Triamterene/HCTZ 37.5-25 MG* CAP PO SCH (08:26)
[2017-08-22] MEDS: Magnesium Chloride EC TAB* 64 MG PO SCH ×4 (08:26→20:47)
[2017-08-22] MEDS: Docusate CAP* 100 MG PO SCH ×2 (08:26→20:47)
[2017-08-22] MEDS: Cetirizine* 10 MG TAB PO SCH (08:26)
[2017-08-22] MEDS: Potassium Chlor TAB* 20 MEQ TAB.ER PO SCH ×4 (08:26→20:47)
[2017-08-22] MEDS: TIOTROPIUM INH SCH ×2 (08:27→08:29)
[2017-08-22] MEDS: Magnesium Hydroxide LIQ* 30 ML UDC PO SCH ×2 (08:38→20:47)
[2017-08-22] MEDS: Ondansetron TAB* 4 MG PO PRN (08:41)
--- NOTE | 2017-08-22 08:50 | PN ---
Progress Note - Progress Note Date of Service: 08/22/17 SOAP: Subjective: [Reporting some discomfort today R leg -- and some irritation from pressure of knee immobilizer distally. Denies CP, SOB, Dizziness.] Objective: [A and O x3, NAD, VSS R knee dressing c/d/i, immobilizer in place. Moderate edema R foot ankle. + DF /PF, can wiggle toes. NV function intact. Vital Signs: Temp Pulse Resp BP Pulse Ox 98.9 F 81 20 115/45 98 08/22/17 07:39 08/22/17 07:39 08/22/17 08:26 08/22/17 07:39 08/22/17 07:39 Laboratory Results - last 24 hr 08/22/17 08/22/17 08/22/17 05:57 05:57 05:57 WBC 8.6 RBC 2.65 L Hgb 7.8 L Hct 24 L MCV 89 MCH 30 MCHC 33 RDW 15 Plt Count 368 MPV 7 L INR (Anticoag Therapy) 1.22 H C-Reactive Protein 169.50 H ] Assessment: [Con't abx per ID DNT prohylaxis - Coumadin and Lovenox 6 mg of Coumadin today Stop lovenox when INR gets to 2 Monitor h/h, dragan PlanD?C to [facility]] Plan: []
[2017-08-22] MEDS: oxyCODONE/Acetamin 5/325 MG* TAB PO PRN ×2 (09:36→17:10)
[2017-08-22] MEDS: Sertraline* 100 MG TAB PO SCH (09:36)
[2017-08-22] MEDS: GLUCOSAMINE CHONDROITIN MSM PO SCH (09:38)
[2017-08-22] MEDS: [UNRECOGNIZED DRUG - OTHER] PO SCH (09:39)
[2017-08-22] MEDS: [UNRECOGNIZED DRUG - OTHER] PO SCH (09:39)
[2017-08-22] MEDS: GINKGO PO SCH (09:40)
[2017-08-22] MEDS: CHROMIUM PICOLINATE 500 MCG PO SCH (09:40)
[2017-08-22] MEDS: GREEN TEA EXTRACT PO SCH (09:41)
[2017-08-22] MEDS: Fluticasone NASAL SPRAY 50MCG* 16 gm SPRAY BTL BOTH NARES SCH (09:42)
[2017-08-22] MEDS: ESTROPIPATE 0.75 MG PO SCH (09:44)
--- NOTE | 2017-08-22 12:08 | PN ---
Subjective - Subjective Reason for Note: Progress Note History: She is feeling no new symptoms today. Her right knee pain is under control. She has had no problems with adverse effects of her current medication. General: no fevers, sweats, shakes CVS: No chest pain, dyspnea, palpitations Resp: No cough/sputum GIT: No anorexia, nausea or vomiting. Daily bowel movements - no constipation or diarrhea : Fernández [employer]: No headache, disorientation Active Problems: Active Problems Anemia (Acute) D64.9 Infected prosthetic knee joint (Acute) T84.59XA, Z96.659 Right knee pain (Acute) M25.561 Asthma (Chronic) J45.909 continue home pulmonary meds CKD (chronic kidney disease) (Chronic) N18.9 Chronic low back pain (Chronic) M54.5, G89.29 Chronic pain (Chronic) G89.29 Continue oxycodone SR, add IV morphine PRN. DVT prophylaxis (Chronic 08/23/14) [id number] lovenox Full code status (Chronic 08/23/14) Z78.9 HTN (hypertension) (Chronic) I10 History of pulmonary embolism (Chronic) Z86.711 Hypothyroidism (Chronic) E03.9 cont Synthroid Numbness in feet (Chronic) R20.0 Scoliosis deformity of spine (Chronic) M41.9 Spinal stenosis (Chronic) M48.00 Current Medications: Current Medications Albuterol (Ventolin Hfa Inhaler*) 2 puff INH Q4H PRN PRN Reason: SOB/WHEEZING Cetirizine HCl (Zyrtec*) 10 mg PO DAILY [facility] Last Admin: 08/22/17 08:26 Dose: 10 mg Diphenhydramine HCl (Benadryl Iv*) 25 mg IV Q6H PRN PRN Reason: itching Docusate Sodium (Colace Cap*) 100 mg PO BID [facility] Last Admin: 08/22/17 08:26 Dose: 100 mg Enoxaparin Sodium (Lovenox(*)) 60 mg SUBCUT Q12H [facility] Last Admin: 08/22/17 08:26 Dose: 60 mg Estropipate (Ogen(Nf)) 0.75 mg PO DAILY [facility] Last Admin: 08/22/17 09:44 Dose: Not Given Fluticasone Propionate (Flonase Nasal [place] 50mcg*) 2 spray BOTH NARES DAILY [facility] Last Admin: 08/22/17 09:42 Dose: 2 spray Heparin Sodium (Porcine) (Heparin Flush Picc/Ml/Cvc(*)) 1 ml FLUSH 0600,1800 [facility] PRN Reason: Protocol Last Admin: 08/22/17 05:45 Dose: 1 ml Ceftriaxone Sodium 2 gm/ (Dextrose) 50 mls @ 100 mls/hr IV Q24H [facility] Last Admin: 08/21/17 15:19 Dose: 100 mls/hr Levothyroxine Sodium (Synthroid Tab*) 100 mcg PO DAILY@0600 [facility] Last Admin: 08/22/17 05:52 Dose: 100 mcg Magnesium Chloride (Slow Mag Ec Tab*) 64 mg PO QID [facility] Last Admin: 08/22/17 08:26 Dose: 64 mg Magnesium Hydroxide (Milk Of Magnesia Liq*) 30 ml PO BID [facility] Last Admin: 08/22/17 08:38 Dose: Not Given Magnesium Hydroxide (Milk Of Magnesia Liq*) 30 ml PO Q6H PRN PRN Reason: constipation Meclizine HCl (Antivert Tab*) 25 mg PO Q8HR [facility] Last Admin: 08/22/17 06:47 Dose: 25 mg Methocarbamol (Robaxin Tab*) 500 mg PO QID PRN PRN Reason: MUSCLE SPASMS Last Admin: 08/21/17 12:50 Dose: 500 mg Methocarbamol (Robaxin Tab*) 1,000 mg PO QID PRN PRN Reason: MUSCLE SPASMS Mometasone Furoate/Formoterol Fumar (Dulera 200/5 Mdi*) 2 puff INH BID [facility] Last Admin: 08/22/17 08:26 Dose: 2 puff Montelukast Sodium (Singulair Tab*) 10 mg PO QPM [facility] Last Admin: 08/21/17 18:05 Dose: 10 mg Morphine Sulfate (Morphine Inj (Syringe)*) 2 mg IV Q2H PRN PRN Reason: PAIN - SEVERE Last Admin: 08/18/17 14:40 Dose: 2 mg Morphine Sulfate (Morphine Inj (Syringe)*) 4 mg IV Q2H PRN PRN Reason: PAIN - SEVERE Multivitamins/Minerals (Theragran/Minerals Tab*) 1 tab PO DAILY [facility] Last Admin: 08/22/17 08:26 Dose: 1 tab Pto:Nf Med (Spiriva Respimat 1.25mcg/Actuation) 2 dose INH DAILY [facility] Last Admin: 08/22/17 08:29 Dose: 2 dose Pto: Ginseng Complex 2 dose PO DAILY [facility] Last Admin: 08/22/17 09:39 Dose: 2 dose Pto: Glucosamine (Chondroitin Msm) 2 dose PO DAILY [facility] Last Admin: 08/22/17 09:38 Dose: 2 dose Pto: Green Tea (Extract 315mg) 2 dose PO DAILY [facility] Last Admin: 08/22/17 09:41 Dose: 2 dose Pto: Airborne Originial Chewable Tablets 1 dose PO DAILY [facility] Last Admin: 08/22/17 09:39 Dose: 1 dose Pto: Ginko Biloba (120mg) 1 dose PO DAILY [facility] Last Admin: 08/22/17 09:40 Dose: 1 dose Pto: Chromium (Picolinate 500 Mcg) 2 dose PO DAILY [facility] Last Admin: 08/22/17 09:40 Dose: 2 dose Ondansetron HCl (Zofran Inj*) 4 mg IV Q6H PRN PRN Reason: nausea Last Admin: 08/20/17 04:36 Dose: 4 mg Ondansetron HCl (Zofran Tab*) 8 mg PO TID PRN PRN Reason: NAUSEA Last Admin: 08/22/17 08:41 Dose: 8 mg Oxycodone HCl (Roxycodone Tab*) 10 mg PO Q4H PRN PRN Reason: PAIN - SEVERE Last Admin: 08/22/17 00:31 Dose: 10 mg Oxycodone HCl (Roxycodone Tab*) 5 mg PO Q6H PRN PRN Reason: PAIN Oxycodone HCl (Oxycontin(*)) 40 mg PO BID [facility] Last Admin: 08/22/17 08:26 Dose: 40 mg Oxycodone/Acetaminophen (Percocet 5/325 Tab*) 2 tab PO Q4H PRN PRN Reason: PAIN - MODERATE Last Admin: 08/22/17 09:36 Dose: 2 tab Oxycodone/Acetaminophen (Percocet 5/325 Tab*) 1 tab PO Q4H PRN PRN Reason: PAIN - MILD Last Admin: 08/18/17 19:36 Dose: 1 tab Pharmacy Profile Note (Coumadin Daily Reminder*) 0 note FOLLOW UP 1700 [facility] Last Admin: 08/21/17 18:05 Dose: 1 note Potassium Chloride (Klor Con Er Tab*) 20 meq PO QID [facility] Last Admin: 08/22/17 08:26 Dose: 20 meq Senna (Senokot Tab*) 1 tab PO Q4H PRN PRN Reason: CONSTIPATION Last Admin: 08/20/17 08:57 Dose: 1 tab Sertraline HCl (Zoloft*) 100 mg PO DAILY [facility] Last Admin: 08/22/17 09:36 Dose: 100 mg Triamterene/HCTZ (Dyazide Cap*) 1 cap PO DAILY [facility] Last Admin: 08/22/17 08:26 Dose: 1 cap Warfarin Sodium (Coumadin Tab(*)) 6 mg PO ONCE@1700 [facility] PRN Reason: Protocol Stop: 08/22/17 17:01 Home Medications: Home Medications Medication Instructions Recorded Confirmed Type Montelukast Sodium TAB* [Singulair 10 mg PO QAM 05/09/12 08/16/17 History 5 mg TAB*] Apple Cider Vinegar 600 mg PO DAILY 03/19/14 08/16/17 History Dicyclomine CAP* [Bentyl CAP*] 10 mg PO TID 03/19/14 08/16/17 History Estropipate(NF) [Ogen(NF)] 0.75 mg PO QAM 03/19/14 08/16/17 History Fluticasone NASAL * [Flonase *] 2 spray BOTH NARES DAILY 03/19/14 08/16/17 History Lwfxhqoxnft-DXR-Xuw C-Manganes 1 tab PO DAILY 03/19/14 08/16/17 History [Glucosamine MSM Complex] Levothyroxine TAB* [Synthroid 100 [place] [address]/19/14 08/16/17 History MCG TAB*] Magnesium Gluconate [Mag-G] 500 mg PO QID 03/19/14 08/16/17 History oxyCODONE TAB* [Roxycodone TAB 5 5 - 10 mg PO Q6H PRN MDD 40 mg 03/19/14 History mg*] Meclizine TAB* [Antivert 12.5 TAB*] 25 mg PO Q6HR PRN 01/16/16 08/16/17 History Methocarbamol TAB* [Robaxin 500 MG 500 - 1,000 mg PO Q6HR PRN 01/16/16 08/16/17 History TAB*] Mometasone/Formoter 200/5 MDI* 2 puff INH BID 01/16/16 08/16/17 History [Dulera 200/5 MDI*] Multivitamins/Minerals TAB* 1 tab PO DAILY 01/16/16 08/16/17 History [Theragran/minerals TAB*] Potassium Chlor TAB* [Potassium 20 meq PO QID 01/16/16 08/16/17 History Chlor TAB 20 MEQ*] Sertraline* [Zoloft*] 50 mg PO BID 01/16/16 08/16/17 History Triamterene/HCTZ 37.5-25 MG* 1 cap PO DAILY 01/16/16 08/16/17 History [Dyazide CAP*] oxyCODONE SR TAB(*) [Oxycontin 40 40 mg PO Q12HR 01/16/16 08/16/17 History mg (*)] Albuterol HFA INHALER* [Ventolin 1 puff INH Q4H PRN 03/31/17 08/16/17 History HFA Inhaler*] Docusate CAP* [Colace Cap*] 200 mg PO BID 08/16/17 08/16/17 History LevoCETirizine TAB (NF) [Xyzal TAB 5 mg PO DAILY 08/16/17 08/16/17 History (NF)] Naproxen Sodium [Naproxen Sodium 440 mg PO DAILY 08/16/17 08/16/17 History 220 mg] Ondansetron ODT TAB* [Zofran 4 MG 8 mg PO Q6H PRN 08/16/17 08/16/17 History Odt TAB*] Sennosides [Senna Lax] 8.6 mg PO Q4HR PRN MDD 43 mg 08/16/17 08/16/17 History Allergies: Allergies Allergy/AdvReac Type Severity Reaction Status Date / Time Iodinated Diagnostic Agents Allergy Hives/Diff. Verified 08/19/17 09:12 Breathing/I tching Iodine Allergy Anaphylatic Verified 07/05/17 09:35 Shock Penicillins Allergy Hives/Diff. Verified 07/05/17 09:35 Breathing/I tching Adhesive Tape AdvReac Rash Verified 07/05/17 09:35 Ciprofloxacin [From Cipro] AdvReac Vomiting Verified 07/05/17 09:35 Erythromycin AdvReac Vomiting Verified 07/05/17 09:35 Sulfa Drugs AdvReac Nausea Verified 07/05/17 09:35 Tetracycline AdvReac Nausea Verified 07/05/17 09:35 CT CONTRAST Allergy Severe HIVES/DIFFICULTY Uncoded 07/05/17 09:35 BREATHING Objective - Vital Signs Vital Signs: Vital Signs 08/21/17 08/21/17 08/21/17 12:50 12:51 15:26 Temperature Pulse Rate Respiratory 16 16 16 Rate Blood Pressure (mmHg) O2 Sat by Pulse Oximetry 08/21/17 08/21/17 08/21/17 15:31 19:16 20:11 Temperature 98.8 F 99.8 F Pulse Rate 81 88 93 Respiratory 16 16 16 Rate Blood Pressure 108/52 119/36 (mmHg) O2 Sat by Pulse 97 98 95 Oximetry 08/21/17 08/21/17 08/21/17 20:40 21:29 21:40 Temperature Pulse Rate Respiratory 22 16 16 Rate Blood Pressure (mmHg) O2 Sat by Pulse Oximetry 08/21/17 08/21/17 08/22/17 23:05 23:44 00:20 Temperature 99.5 F Pulse Rate 83 Respiratory 14 16 18 Rate Blood Pressure 110/38 (mmHg) O2 Sat by Pulse 98 Oximetry 08/22/17 08/22/17 08/22/17 00:31 02:30 03:41 Temperature 98.9 F Pulse Rate 79 Respiratory 16 16 16 Rate Blood Pressure 113/46 (mmHg) O2 Sat by Pulse 98 Oximetry 08/22/17 08/22/17 08/22/17 07:39 08:00 08:26 Temperature 98.9 F Pulse Rate 81 Respiratory 16 16 20 Rate Blood Pressure 115/45 (mmHg) O2 Sat by Pulse 98 Oximetry 08/22/17 09:36 Temperature Pulse Rate Respiratory 16 Rate Blood Pressure (mmHg) O2 Sat by Pulse Oximetry - Intake and Output Intake and Output: Intake & Output 08/20/17 08/21/17 08/22/17 08/23/17 11:59 11:59 11:59 11:59 Intake Total 1480 0685 800 Output Total 4864 6240 8344 Balance -1497 -997 -4203 Intake: IV Fluids 58 NS (0.9%) 58 Oral 1290 2040 800 Packed Cells 326 Output: Urine 525 875 Fernández 6500 2150 2350 Residual 2400 16 Fr 2400 Other: # Bowel Movements 1 1 Estimated Stool Amount Large Large ADLs: Meal Record Start: 08/16/17 18: 27 Freq: Status: Active Protocol: Created 08/16/17 18:27 System (Rec: 08/16/17 18:27 System SSU-M07) Document 08/18/17 19:07 [id number] (Rec: 08/18/17 19:08 [id number] SSU-C04) Document 08/19/17 18:06 [id number] (Rec: 08/19/17 18:06 [id number] SSU-C01) Document 08/19/17 19:03 [id number] (Rec: 08/19/17 19:03 [id number] SSU-M14) Document 08/20/17 10:00 [id number] (Rec: 08/20/17 11:55 [id number] SSU-C11) Document 08/20/17 18:28 [id number] (Rec: 08/20/17 18:28 [id number] SSU-M06) Intake and Output Start: 08/16/17 16: 21 Freq: 06,14,2200 Status: Active Protocol: Document 08/16/17 22:00 [id number] (Rec: 08/16/17 22:34 [id number] SSU-C11) Document 08/17/17 06:00 [id number] (Rec: 08/17/17 06:35 [id number] SSU-C10) Document 08/17/17 06:54 [id number] (Rec: 08/17/17 06:54 [id number] SSU-C12) Document 08/18/17 05:56 [id number] (Rec: 08/18/17 05:57 [id number] SSU-C08) Document 08/18/17 06:34 [id number] (Rec: 08/18/17 06:34 [id number] SSU-M14) Document 08/18/17 14:00 [id number] (Rec: 08/18/17 14:49 [id number] SSU-C03) Document 08/18/17 19:32 [id number] (Rec: 08/18/17 19:32 [id number] SSU-M07) Document 08/18/17 22:32 [id number] (Rec: 08/18/17 22:32 [id number] SSU-C04) Document 08/19/17 05:39 [id number] (Rec: 08/19/17 05:39 [id number] SSU-C06) Document 08/19/17 06:23 [id number] (Rec: 08/19/17 06:24 [id number] SSU-M07) Document 08/19/17 15:00 [id number] (Rec: 08/19/17 15:00 [id number] SSU-M14) Document 08/19/17 20:47 [id number] (Rec: 08/19/17 20:48 [id number] SSU-C01) Document 08/19/17 21:54 [id number] (Rec: 08/19/17 21:55 [id number] SSU-C01) Document 08/19/17 22:31 [id number] (Rec: 08/19/17 22:31 [id number] SSU-C01) Document 08/20/17 04:05 [id number] (Rec: 08/20/17 04:05 [id number] SSU-C11) Document 08/20/17 05:42 HOT1551 (Rec: 08/20/17 05:42 [id number] SSU-C11) Document 08/20/17 10:42 [id number] (Rec: 08/20/17 10:42 [id number] SSU-M06) Document 08/20/17 14:00 [id number] (Rec: 08/20/17 14:39 [id number] SSU-C11) Document 08/20/17 19:43 [id number] (Rec: 08/20/17 19:44 [id number] SSU-C09) Document 08/20/17 22:00 [id number] (Rec: 08/20/17 22:10 [id number] SSU-C09) Document 08/21/17 06:00 [id number] (Rec: 08/21/17 06:11 QBQ5102 SSU-C19) Document 08/21/17 14:00 [id number] (Rec: 08/21/17 14:33 [id number] SSU-C03) Document 08/21/17 20:18 [id number] (Rec: 08/21/17 20:18 SUV1193 SSU-M12) Document 08/21/17 22:00 [id number] (Rec: 08/21/17 22:19 [id number] SSU-M12) Document 08/22/17 05:26 [id number] (Rec: 08/22/17 05:27 [id number] SSU-C08) Intake and Output Start: 08/16/17 18: 27 Freq: DAILY@0600,1400,2200 Status: Complete Protocol: Created 08/16/17 18:27 System (Rec: 08/16/17 18:27 System SSU-M07) Document 08/16/17 22:00 [id number] (Rec: 08/16/17 22:34 [id number] SSU-C11) Document 08/17/17 06:00 [id number] (Rec: 08/17/17 06:35 [id number] SSU-C10) Document 08/18/17 05:56 [id number] (Rec: 08/18/17 05:57 [id number] SSU-C08) Document 08/18/17 14:00 [id number] (Rec: 08/18/17 16:18 [id number] SSU-M06) Document 08/18/17 22:00 [id number] (Rec: 08/18/17 22:10 [id number] SSU-C04) Document 08/19/17 05:39 [id number] (Rec: 08/19/17 05:39 [id number] SSU-C06) Document 08/19/17 14:00 [id number] (Rec: 08/19/17 15:03 [id number] SSU-C03) Document 08/19/17 21:54 [id number] (Rec: 08/19/17 21:55 [id number] SSU-C01) - Physical Exam General Physical Exam Comment: Sitting in chair with legs elevated. Has drain right knee - I didn't examine her wound. She is comfortable. Warm and well perfused/hydrated General: No Cyanosis, Yes Anemia, No Jaundice, No Clubbing Eye Exam: bilateral: EOMI Skin: Normal: Rash Lungs and Chest: Yes: Chest Expansion Full, Chest Expansion Symetrica, Percussion Note Resonant, Vessicular Breath Sounds. No: Crackles, Wheezes, Respiratory Distress, Use of Accessory Muscles Heart Rate and Rhythm: Regular JVP: Not Elevated Additional Cardiovascular: Yes: Normal Heart Sounds, Pedal Edema. No: Heart Murmur Abdominal Exam: Yes: Soft, Bowel Sounds Present. No: Distention, Abdominal Mass , Abdominal Tenderness, Guarding, Rebound Tenderness - Extremities Cranial Nerves II-XII Intact: Yes Limbs: Normal Power, Normal Tone - Neuro Orientation: A/O x3 Psychiatric: Normal Speech: Normal Results - Results Lab Results: Laboratory Results - last 24 hr 08/22/17 08/22/17 08/22/17 05:57 05:57 05:57 WBC 8.6 RBC 2.65 L Hgb 7.8 L Hct 24 L MCV 89 MCH 30 MCHC 33 RDW 15 Plt Count 368 MPV 7 L INR (Anticoag Therapy) 1.22 H C-Reactive Protein 169.50 H Assessment - Problem List Assessment: Patient Problems Anemia (Acute) Infected prosthetic knee joint (Acute) Right knee pain (Acute) Asthma (Chronic) CKD (chronic kidney disease) (Chronic) Chronic low back pain (Chronic) Chronic pain (Chronic) DVT prophylaxis (Chronic 08/23/14) Full code status (Chronic 08/23/14) HTN (hypertension) (Chronic) History of pulmonary embolism (Chronic) Hypothyroidism (Chronic) Numbness in feet (Chronic) Scoliosis deformity of spine (Chronic) Spinal stenosis (Chronic) Plan: Anemia (Acute) Her hemoglobin has declined back to 7.8. She is asymptomatic. She had 1 unit PRBCS on 08/17 and 08/19 - her Hgb is now back at the level this occurred at before. I presume her anemia is caused by an acute phase reaction/ anemia of chronic disease. She had a high B12 02/18/17 and a normal iron panel , however her ferritin was towards the low end of the range at 28.9 (this is unreliable measure right now as ferritin is an acute phase reactant). Her transfusions are a source of iron. I discussed this with the patient and she agrees to another unit of PRBCs Infected prosthetic knee joint (Acute) She grew Streptococcus agalactiae and is taking appropriate antibacterials. I note today's CRP is finally coming down. Her neut% was 66 yesterday. Both of these suggest her infection is coming under control Right knee pain (Acute) This is being managed well Asthma (Chronic) no exacerbation CKD (chronic kidney disease) (Chronic) secondary diagnosis Chronic low back pain (Chronic) secondary diagnosis Chronic pain (Chronic) secondary diagnosis DVT prophylaxis (Chronic 08/23/14) Full code status (Chronic 08/23/14) HTN (hypertension) (Chronic) Well controlled History of pulmonary embolism (Chronic) Hypothyroidism (Chronic) secondary diagnosis Numbness in feet (Chronic) secondary diagnosis Scoliosis deformity of spine (Chronic) secondary diagnosis Spinal stenosis (Chronic) secondary diagnosis I discussed the above with the patient. She understands the need for a blood transfusion. I anticipate that her anemia will now start to improve as her acute phase process is resolving. She has no other new needs.
[2017-08-22] MEDS ORDERED: diPHENhydraMINE PO* 25 MG PO ONE (12:22)
[2017-08-22] MEDS ORDERED: Warfarin TAB(*) 6 MG PO SCH (17:00)
[2017-08-22] MEDS: Montelukast Sodium TAB* 10 MG PO SCH (17:12)
[2017-08-22] MEDS: cefTRIAXone 2 GM in D5W 50 ML BAG IV SCH (17:15)
[2017-08-23] MEDS: oxyCODONE/Acetamin 5/325 MG* TAB PO PRN (01:29)
[2017-08-23] MEDS: Meclizine TAB* 12.5 MG PO SCH (05:40)
[2017-08-23] MEDS: Levothyroxine TAB* 100 MCG TAB PO SCH (05:41)
[2017-08-23 06:14] LABS: INR 1.6 (0.77-1.02)
--- NOTE | 2017-08-23 07:19 | PN ---
Progress Note - Progress Note Date of Service: 08/23/17 Note: 98.9 Hct 24% (08/22) and INR is l.6. Concerned regarding NH placement. Awake, alert , NAD at rest, spasms/pain with right knee movements. Right knee surgery is clean and dry and skin edges are in good condition, new dressing applied. Moves right ankle up and down and foot is warm and good color and wrinkles. Stable. She is OK for disposition. Plans: Follow up Dr. Wynn in 2-5 weeks and as needed.
[2017-08-23] MEDS: Ondansetron TAB* 4 MG PO PRN (08:11)
[2017-08-23] MEDS: Mometasone/Formoter 200/5 MDI INH SCH (08:13)
[2017-08-23] MEDS: ESTROPIPATE 0.75 MG PO SCH (08:45)
[2017-08-23] MEDS: Sertraline* 100 MG TAB PO SCH (08:57)
[2017-08-23] MEDS: Potassium Chlor TAB* 20 MEQ TAB.ER PO SCH (08:57)
[2017-08-23] MEDS: Fluticasone NASAL SPRAY 50MCG* 16 gm SPRAY BTL BOTH NARES SCH (08:57)
[2017-08-23] MEDS: Magnesium Chloride EC TAB* 64 MG PO SCH (08:57)
[2017-08-23] MEDS: Docusate CAP* 100 MG PO SCH (08:58)
[2017-08-23] MEDS: oxyCODONE SR TAB(*) 40 MG TAB.SR PO SCH (08:58)
[2017-08-23] MEDS: Triamterene/HCTZ 37.5-25 MG* CAP PO SCH (08:58)
[2017-08-23] MEDS: Cetirizine* 10 MG TAB PO SCH (08:58)
[2017-08-23] MEDS: Multivitamins/Minerals TAB PO SCH (08:58)
[2017-08-23] MEDS ORDERED: PTO:Diclofenac 1% GEL (NF) 100 GM TUBE TOPICAL SCH (09:00)
[2017-08-23] MEDS: Enoxaparin(*) 60 MG/0.6 ML SYR SUBCUT SCH (09:00)
[2017-08-23] MEDS: Magnesium Hydroxide LIQ* 30 ML UDC PO SCH (09:06)
[2017-08-23] MEDS: [UNRECOGNIZED DRUG - OTHER] PO SCH (10:37)
[2017-08-23] MEDS: CHROMIUM PICOLINATE 500 MCG PO SCH (10:39)
[2017-08-23] MEDS: [UNRECOGNIZED DRUG - OTHER] PO SCH (10:40)
[2017-08-23] MEDS: GREEN TEA EXTRACT PO SCH (10:40)
[2017-08-23] MEDS: GLUCOSAMINE CHONDROITIN MSM PO SCH (10:41)
[2017-08-23] MEDS: GINKGO PO SCH (10:41)
[2017-08-23] MEDS: TIOTROPIUM INH SCH (10:43)
--- NOTE | 2017-08-23 12:08 | TRS ---
CC: Dr. Román Wynn; Dr. Dimas Kulkarni; [facility] DATE OF ADMISSION: 08/16/2017. DATE OF TRANSFER: 08/23/2017. TRANSFER DIAGNOSES: 1. 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 2. ALLERGIES TO CIPROFLOXACIN, ERYTHROMYCIN, PENICILLIN, SULFA, TETRACYCLINE, ADHESIVE, IODINE. 3. Hypothyroidism. 4. Ventral hernia. 5. Postoperative delirium. 6. Osteoarthritis. 7. Asthma. 8. Hypertension. 9. History of chronic low back pain. 10. History of anxiety/depression. 11. Status post bilateral knee replacements. 12. Status post colon resection. 13. Status post bilateral carpal tunnel release. 14. Status post bilateral cataract surgery. 15. Status post hysterectomy with aortic rupture at the time of hysterectomy. 16. Spinal stenosis. 17. History of vertigo. 18. History of pulmonary embolism in 2011. 19. Non-occlusive deep venous thrombosis of the right lower extremity. 20. Anemia, post-operative and of acute illness. HISTORY: Zaida Duke is an 82-year-old woman admitted with prosthetic joint infection of the right knee. Please see the dictated admission note for details of the present illness, past medical history, family history, social and personal history, review of systems and physical examination. LABORATORY DATA: CBC on admission: WBC 13.4, H and H 9.6/30, MCV 90, PLT 298k , ESR 111. White count subsequently came down to 8.6 on August 22. H and H went down as well at 7.8/20 on August 19. She had several blood transfusions. Most recent H and H prior to transfer was on August 22 when it was 7.8/24 and she had a transfusion after that. INR on admission 0.98, PTT 32.5; INR prior to discharge was 1.60, coming up. Chemistries on admission: Sodium 132, potassium 3.3, chloride 98, CO2 27, BUN and creatinine 27/0.99, glucose 121, rest of her comprehensive metabolic panel was essentially within normal limits, except for albumin slightly low at 2.9. Potassium subsequently came up and was normal by the time of discharge. BUN and creatinine came down and were normal prior to discharge. Total protein and albumin were low. CRP started at 303.01, came down to 152.72 on August 20, went up again to 189.89 on August 21, and was down to 169.50 on August 22. Urinalysis on August 16: Yellow, cloudy, specific gravity 1.013, pH 5, dipstick is negative. Urinalysis on August 19: Color was clear, urine specific gravity 1.004, pH 8 , dipstick is negative on August 19. Joint fluid drawn out prior to admission grew out strep agalactiae group B with MRSA and staph aureus. PCR negative. At the time of surgery on August 17, joint fluid grew out the same. Blood cultures times two were no growth. Blood was B positive and she received three transfusions over the course of her hospitalization on August 17, August 19, and August 22. IMAGING: Chest x-ray on 08/16/2017 showed no acute disease. Venous Doppler study on 08/16/2017 showed a nonocclusive thrombus of the right posterior tibial vein. Knee x-ray on 08/17/2017, done after surgery showed interval hardware removal. Chest x-ray on 08/19/2017 showed mild to moderate interstitial congestion (felt to be due to volume overload). Surgical specimen on 08/17/2017 pathology showed explanted hardware right knee. This was only a gross description. No pathology done. EKG on 08/16/2017 showed sinus rhythm, PVC's, probable LAE. CONSULTATIONS: 1. Orthopedic consultation, 08/16/2017, felt that the patient had a prosthetic knee injection which was recurrent. She had had one the year before. It was felt that she would need explantation of the prosthetic joint. 2. Infectious Disease consultation, Dr. Kulkarni, 08/18/2017. Dr. Kulkarni recommended Ceftriaxone 2 gm once a day for six weeks, but then he adjusted it to be for eight weeks and then re-aspiration. If that is negative, after two weeks off antibiotics then would plan potential reimplantation of a prosthesis. HOSPITAL COURSE: The patient was admitted. She was initially placed on Vancomycin and then once the culture results were known, she was switched to Ceftriaxone. She was seen in consultation by Dr. Kulkarni (see above). She was treated with Ceftriaxone and on date of discharge is day 7 out of 56 days that she will be on IV Ceftriaxone. PICC line was placed. We felt that she had failed p.o. treatment of suppression of the joint infection with Doxycycline , but it was also noted that her feet are very cracked with open areas and that this was another site for entry of bacteria because she walks at home with bare feet. This was discussed with the patient and it was strongly suggested that she no longer do this. She underwent a prosthetic joint explantation as noted above on August 17. She was treated with Oxycodone for pain. She did develop postoperative delirium which might have been due to Morphine. Other causes were ruled out. She was started on Enoxaparin and then Warfarin for treatment of the nonocclusive thrombus in her calf. She was treated with blood transfusion for her anemia. She was a full code. She requested that her at home supplements be restarted while she was in the hospital and this was done. . She did develop volume overload (see chest x-ray above). This resolved as her antibiotics were stopped. Her INR was coming up at the time of discharge. Vital signs at the time of discharge: Blood pressure 139/54, pulse 72, respirations 16, temperature 97.5, O2 sat 100 percent. Chest is clear. Heart shows a regular rhythm. Abdomen shows a large ventral hernia. Extremities show decreased edema in the right leg from admission, decreased erythema. Her skin on her feet is very cracked with open areas. MEDICATIONS: At the time of discharge, her medication orders are as follows: 1. Albuterol two puffs every 4 hours as needed for shortness of breath or wheezing. 2. Ceftriaxone 2 gm IV daily. 3. Levocetirizine (Xyzal) 5 mg p.o. daily. 4. Fluticasone two sprays each nostril daily. 5. Potassium Chloride 20 mEq p.o. q.i.d. 6. Sertraline 50 mg p.o. b.i.d. 7. Mag-G one p.o. q.i.d. 8. Singulair 10 mg p.o. daily. 9. Triamterene Hydrochlorothiazide 37.5/25 mg p.o. daily. 10. Zofran 8 mg p.o. t.i.d. prn nausea. 11. Levothyroxine 100 mcg p.o. daily. 12. Spiriva Respimat two inhalations daily. 13. OxyContin 40 mg p.o. b.i.d. (this is the dose she had been taking at home prior to the infection). 14. Oxycodone 5 mg q.4 hours prn moderate pain and 10 mg p.o. q.4 hours prn severe pain. 15. Docusate 100 mg p.o. b.i.d. 16. Estropipate 0.75 mg p.o. daily. 17. Milk of Magnesia 30 cc p.o. daily prn constipation. 18. Multivits one p.o. daily. 19. Chromium Picolinate 500 mg two p.o. daily. 20. [place]ko Biloba 120 mg p.o. daily. 21. Airborne one p.o. daily. 22. Green tea extract 315 mg two p.o. daily. 23. Ginseng extract two p.o. daily. 24. Glucosamine Chondroitin two p.o. daily. 25. Warfarin 6 mg p.o. daily for DVT treatment or as directed. 26. Methocarbamol 1000 mg p.o. q.i.d. prn muscle spasm. DIET: Regular. ACTIVITY: Per orthopedic instructions. She will get physical therapy. Staple removal is per orthopedic instructions. She should have a weekly CBC, CRP, and CMP. She will need an INR on 08/25/2017 and then as needed per the physician at [facility]. I will be available should any questions arise, . Please feel free to call me. It is expected that she should be seeing Dr. Kulkarni in three to four weeks to follow- up, or at least call his office to get instructions. Follow-up with Dr. Wynn is in 4-6 weeks. She will see me after she is released from [facility]. [id number]/[facility] #: [id number] [facility] CENTERMarta
[2017-08-23 12:20] VITALS: BP 146/61
[2017-08-23] MEDS: oxyCODONE TAB* 5 MG TAB PO PRN (12:32)
--- NOTE | 2017-08-25 02:56 | DS ---
CC: Dr. Dimas Kulkarni; Dr. Grisel Medellin; Dr. Román Wynn * ORTHOPEDIC SUMMARY: DATE OF ADMISSION: 08/16/17 DATE OF DISCHARGE: 08/23/17 FINAL DIAGNOSIS: Prosthetic right total knee infection with Streptococcus agalactiae. SECONDARY DIAGNOSES: 1. Acute blood loss anemia. 2. Hypothyroidism. 3. Postoperative delirium. 4. Fluid overload. 5. Hypertension. 6. Chronic low back pain. 7. Anxiety. 8. Depression. SURGICAL CARE: On 08/17/17, removal of right total knee replacement and all cement and insertion of antibiotic-impregnated spacer with tobramycin and vancomycin. The initial antibiotic coverage was vancomycin as soon as we knew she was growing Strep. Dr. Kulkarni switched her to 2 g of ceftriaxone q.24 hours. The culture done in my office on 08/16/17 grew Strep agalactiae and the culture in the operating room 08/17/17 grew the same. In the postoperative period, the patient received 3 units of packed red blood cells. This was done for losses and some concern regarding continued losses because we had the patient on Lovenox and several dressing changes were necessary on the right knee. The right knee surgery was watched carefully and the wound edges remained viable and she was kept in a splint with Telfa dressings and Betadine solution. The patient mobilized to a chair. The plan is for nonweightbearing on the right side. We do want her exercising her right ankle and she does have permission to weight bear as tolerated on the left lower extremity for transfers. Dr. Kulkarni requested a CBC, a complete metabolic profile and a C-reactive protein to be done each week and the estimated duration of the IV ceftriaxone will be approximately 09/28/17 with a planned aspiration of the right knee 2 weeks after that, which will be approximately 10/12/17. For the DVT of the right lower extremity, the plan is the patient was given Lovenox starting 2 days after the surgical care and then she was started on Coumadin at the same time. The plan is for Coumadin per Dr. Grisel Medellin with a goal INR in the 2 to 3 range. If everything goes satisfactorily, replantation of the right knee could be planned for after 10/16/17 or 10/21/17. [id number]/[facility] #: [id number] [facility]PITALSMarta
== END 2017-08-23 12:35 | DRG 464 ==
LOC: ED 12:58 → SSU 16:21
PROVIDERS: ADMIT Orthopaedic Surgery; ATTEND Orthopaedic Surgery
PROC: 0SPC0JZ Removal of Synthetic Substitute from Right Knee Joint, Open Approach (ICD-10-PCS; 2017-08-17)
PROC: 0SHC08Z Insertion of Spacer into Right Knee Joint, Open Approach (ICD-10-PCS; 2017-08-17)
PROC: 30233N1 Transfusion of Nonautologous Red Blood Cells into Peripheral Vein, Percutaneous Approach (ICD-10-PCS; principal; 2017-08-17 15:00)
PROC: 02HV33Z Insertion of Infusion Device into Superior Vena Cava, Percutaneous Approach (ICD-10-PCS; 2017-08-19)
DX: T84.53XA Infection and inflammatory reaction due to internal right knee prosthesis, initial encounter (principal); L03.115 Cellulitis of right lower limb; E87.70 Fluid overload, unspecified; F05 Delirium due to known physiological condition; I82.4Z2 Acute embolism and thrombosis of unspecified deep veins of left distal lower extremity; D62 Acute posthemorrhagic anemia; M41.9 Scoliosis, unspecified; E03.9 Hypothyroidism, unspecified; Y79.2 Prosthetic and other implants, materials and accessory orthopedic devices associated with adverse incidents; J45.909 Unspecified asthma, uncomplicated; M19.90 Unspecified osteoarthritis, unspecified site; Z96.652 Presence of left artificial knee joint; M48.00 Spinal stenosis, site unspecified; N18.2 Chronic kidney disease, stage 2 (mild); I12.9 Hypertensive chronic kidney disease with stage 1 through stage 4 chronic kidney disease, or unspecified chronic kidney disease; G89.29 Other chronic pain; M54.5 Low back pain; F41.9 Anxiety disorder, unspecified; F32.9 Major depressive disorder, single episode, unspecified; M10.9 Gout, unspecified; M62.838 Other muscle spasm; B95.1 Streptococcus, group B, as the cause of diseases classified elsewhere; R20.0 Anesthesia of skin; Z16.29 Resistance to other single specified antibiotic; Z16.39 Resistance to other specified antimicrobial drug; K43.9 Ventral hernia without obstruction or gangrene; Y92.9 Unspecified place or not applicable; Z87.01 Personal history of pneumonia (recurrent); Z86.14 Personal history of Methicillin resistant Staphylococcus aureus infection; Z98.42 Cataract extraction status, left eye; Z98.41 Cataract extraction status, right eye; Z90.49 Acquired absence of other specified parts of digestive tract; Z88.0 Allergy status to penicillin; Z88.1 Allergy status to other antibiotic agents; Z88.2 Allergy status to sulfonamides; Z80.9 Family history of malignant neoplasm, unspecified; Z91.041 Radiographic dye allergy status; Z91.09 Other allergy status, other than to drugs and biological substances; Z86.718 Personal history of other venous thrombosis and embolism; Z86.711 Personal history of pulmonary embolism; Z90.710 Acquired absence of both cervix and uterus; Z82.49 Family history of ischemic heart disease and other diseases of the circulatory system; Z72.89 Other problems related to lifestyle; Z79.01 Long term (current) use of anticoagulants
CPT/HCPCS: 36415; 71045; 80048; 80051; 80053; 81003; 82565; 83605; 83735; 84100; 84520; 85025; 85027; 85610; 85652; 85730; 86140; 86850; 86900; 86901; 86922; 87040; 87070; 87073; 87077; 87102; 87116; 87186; 87205; 87206; 87640; 87641; 88300; 89051; 89060; 93005; 94640; 99285; A9270-GY; C1751; C1776; J0330; J0696; J1100; J1170; J1240; J1644; J1650; J1885; J1940; J2250; J2270; J2405; J2704; J3010; J3370; P9040

== ENCOUNTER 2017-09-05 15:07 | Inpatient (IN) | payer MEDICARE ==
--- NOTE | 2017-09-05 15:44 | RAD ---
INDICATION: Pneumonia COMPARISON: August 19, 2007 TECHNIQUE: PA and lateral dual-energy views were obtained. FINDINGS: Bones/Soft Tissues: There are no acute bony findings. There is an old left proximal humeral fracture. The patient catheter appears to have pulled back. The tip is traced over the right axilla Cardiomediastinal: The cardiomediastinal silhouette is normal. Lungs: There is scarring or atelectasis in the right middle lobe. There is lingular infiltrate. The remaining lung lutz are clear. Pleura: There is mild biapical scarring.. Other: None IMPRESSION: PICC CATHETER WITH ITS TIP AT THE LEVEL THE RIGHT AXILLA. LINGULAR INFILTRATE
[2017-09-05 16:45] LABS: ABS Basophils 0.1 10^3/ul (0-0.2); ABS Eosinophils 0.4 10^3/ul (0-0.6); ABS Lymphocytes 0.9 10^3/ul (1.0-4.8); ABS Monocytes 0.5 10^3/ul (0-0.8); ABS Neutrophils 3.6 10^3/ul (1.5-7.7); ABS Nucleated RBC 0 10^3/ul; Eosinophil % 8.1 % (0-6); Hematocrit 31 % (35-47); Lymphocyte % 16.5 % (25-47); Mean Corpuscular HGB Conc 33 g/dl (31-36); Mean Corpuscular Hemoglobin 29 pg (27-31); Mean Corpuscular Volume 88 fL (80-97); Mean Platelet Volume 7 um3 (7.4-10.4); Nucleated Red Blood Cells % 0; Platelet Count 523 10^3/ul (150-450); Red Blood Count 3.48 10^6/ul (4.0-5.4); Red Cell Distribution Width 15 % (10.5-15); White Blood Count 5.5 10^3/ul (3.5-10.8)
[2017-09-05 17:03] LABS: EGFR Non-African American 68.5 (>60); INR 1.09 (0.77-1.02)
[2017-09-05] MEDS ORDERED: Vancomycin(*) 1,250 MG in NS 0.9% 250 ML* 250 ML IVPB ONE (17:45)
[2017-09-05] MEDS ORDERED: Cefepime(*) 2 GM in NS 0.9% 50 ML* 50 ML IVPB ONE (17:45)
[2017-09-05] MEDS ORDERED: Levofloxacin 750 MG IVPREMIX(* 750 MG/150 ML BAG IVPB ONE (17:45)
[2017-09-05] MEDS ORDERED: Albuterol HFA INHALER* 8 gm MDI INH PRN (19:56)
[2017-09-05] MEDS ORDERED: CEFEPIME* 2 GM in Dextrose* 50 ml IV ONE (20:00)
[2017-09-05] MEDS: oxyCODONE TAB* 5 MG TAB PO PRN (21:05)
[2017-09-05] MEDS: Senna TAB PO SCH (21:05)
[2017-09-05] MEDS: MAGNESIUM GLUCONATE 500 MG PO SCH (21:05)
[2017-09-05] MEDS: Sertraline* 50 MG TAB PO SCH (21:06)
[2017-09-05] MEDS: oxyCODONE SR TAB(*) 40 MG TAB.SR PO SCH (21:06)
[2017-09-05] MEDS: Potassium Chlor TAB* 20 MEQ TAB.ER PO SCH (21:06)
[2017-09-05] MEDS: Heparin VIAL(*) 5000 UNITS/ML VIAL (FIVE THOUSAND) SUBCUT SCH ×2 (21:07→21:16)
[2017-09-05] MEDS: Methocarbamol TAB* 500 MG PO PRN (21:14)
--- NOTE | 2017-09-05 22:14 | HP ---
CC: Dr. Grisel Medellin * [facility] MEDICINE HISTORY AND PHYSICAL: DATE OF ADMISSION: 09/05/17 PRIMARY CARE PHYSICIAN: Dr. Grisel Medellin. ATTENDING PHYSICIAN: Dr. Binta Hall * (dictation provided by Lexi Schneider NP) . CHIEF COMPLAINT: Clogged PICC line in a patient receiving intervenous antibiotics for septic arthritis. HISTORY OF PRESENT ILLNESS: Ms. Duke is an 82-year-old female with a past medical history of septic arthritis x2 to right knee replacement, most recently 08/16/17 at which time she had Strep agalactiae infection. The joint hardware was removed and the patient is continuing on 2 g of ceftriaxone q.24 hours under the direction of Dr. Kulkarni and Dr. Wynn. The patient had an issue with a clogged PICC line and required transfer to [facility] on 08/30/17 for replacement. Over the past 24 hours or so, the nurses again have been having trouble with the patient's PICC line. Despite multiple rounds of cath flow, the PICC was still clogged and therefore she was transferred to [facility] for evaluation. Ms. Duke's only complaint is of a vague sense of feeling unwell. She was unable to really characterize for me what that feeling was. I note from the nursing staff record that she was similarly unable to explain how she was feeling for them as well. Yesterday, she began to notice a cough. She states it is nonproductive, she feels a chest heaviness. There has been no reported fever. In the emergency room, Ms. Duke had her PICC line removed as it was nonfunctional. As she was complaining of a cough, she did have a chest x-ray, which was initially read to show a lingular infiltrate; however, on comparing it person to previous from earlier this month, the same lingular infiltrate was present and is actually improved now. The patient has no leukocytosis, no fever. PAST MEDICAL HISTORY: 1. History of MRSA infection to right knee, status post right knee replacement , August 2016. 2. History of Strep agalactiae infection to right knee, August 2017, status post removal of hardware. 3. History of nonocclusive DVT to the right leg, August 2017. 4. History of bowel obstruction with ventral hernia, 2016. 5. Asthma. 6. Hypertension. 7. Hypothyroidism. 8. Lower extremity edema. 9. Spinal stenosis. 10. Anxiety. 11. Depression. 12. Neuropathy. MEDICATIONS: 1. Spiriva 1 inhalation daily. 2. Methocarbamol 1000 mg p.o. q.6 hours p.r.n. 3. Levocetirizine 5 mg p.o. daily. 4. Oxycodone 10 mg p.o. q.4 hours p.r.n. 5. Ondansetron 8 mg p.o. q.6 hours p.r.n. 6. Ceftriaxone 2000 mg IV daily. 7. Warfarin 6 mg p.o. daily. 8. Albuterol 1 puff inhaled q.4 hours p.r.n. 9. Senna 2 tabs p.o. b.i.d. 10. Ogen (estropipate) 0.75 mg p.o. q.a.m. 11. Oxycodone SR 40 mg p.o. q.12 hours. 12. Levothyroxine 100 mcg p.o. at 8 o'clock. 13. Triamterene/hydrochlorothiazide 37.5/25 one cap p.o. daily. 14. Montelukast 10 mg p.o. q.a.m. 15. Magnesium gluconate 500 mg p.o. q.i.d. 16. Sertraline 50 mg p.o. b.i.d. 17. Potassium chloride 20 mEq p.o. q.i.d. 18. Flonase 2 sprays both nares daily. ALLERGIES: IODINATED DIAGNOSTIC AGENTS, IODINE, PENICILLIN, ADHESIVE TAPE, CIPROFLOXACIN, ERYTHROMYCIN, SULFA DRUGS, TETRACYCLINE, CT CONTRAST. FAMILY HISTORY: The patient reports her mother related to colon cancer. Dad had oat cell cancer. Brother has lung cancer. SOCIAL HISTORY: The patient denies alcohol or tobacco use. She of course denies drug use. She states that her son, Sam would be their first person to notify as a healthcare proxy. REVIEW OF SYSTEMS: A 14-point review of systems was completed with Ms. Duke and all those not mentioned above were negative. PHYSICAL EXAMINATION GENERAL: Ms. Duke is lying in the bed with the daughter at the bedside. She is in no acute distress. VITAL SIGNS: Temperature 98.5, heart rate 82, respiratory rate 16, O2 saturation 97% on room air, and blood pressure 122/63. LUNGS: Clear to auscultation throughout bilaterally today with no accessory muscle use and good aeration. HEART: S1 and S2. No murmur, rub, or gallop and regular. ABDOMEN: Soft and nontender. There is a large ventral hernia. The bowel sounds are positive. EXTREMITIES: No cyanosis or edema. R knee immobilizer in situ, positive sensation in toes, warm, pulses positive. NEURO: She is alert, she is oriented x3. She moves all extremities equally, although she is not able to move the right leg well due to the right knee infection and presence of a large knee immobilizer. Her face is symmetrical. Her extraocular movements are intact. SKIN: Intact. DIAGNOSTIC STUDIES/LAB DATA: WBC 5.5, hemoglobin 10.0, hematocrit 31, platelet count 523. INR 1.09. Sodium 133, potassium 4.6, chloride 101, serum bicarbonate 27, BUN 15, creatinine 0.80, lactic acid 1.0. Troponin 0.00. CRP 57.40. Chest x- ray shows question of a lingular infiltrate and this was present on previous assessment. ASSESSMENT AND PLAN: Ms. Duke is an 82-year-old female with a past medical history of infection x2 to the right knee, now status post removal of the hardware and most recently with a Streptococcus agalactiae infection. For this , she has been treated with 2 g of ceftriaxone IV daily under the direction of Dr. Kulkarni at [facility]. The patient has had a second episode now where the PICC line is nonfunctional and has required transfer to the emergency room here for placement of a new PICC line. In addition, the patient complaints of a cough. Our plans are for observation in the hospital for the followin. Clogged PICC line. The patient's PICC line was removed in the emergency room, a new PICC line has been ordered. I am not sure what the issue is with the patient's frequent clogging, but we will ask the PICC team to provide any recommendations that might be helpful in preventing this complication again. 2. Cough. Though, the chest x-ray is read as showing a lingular infiltrate, I do see that it was present on the previous chest x-ray on 08/19/17, and was actually more pronounced at that time. The patient's lungs are clear to auscultation bilaterally. She has no fever, no leukocytosis. Her CRP is only minimally elevated and likely more due to her chronic knee infection. I do not think that she has pneumonia. We will continue to watch her closely for development of any further symptoms. She will have guafenisen available prn. 3. History of DVT. The patient had a nonocclusive DVT in August of this year. She has been on warfarin at the correction, I note that they have been adjusting the dose and have most recently held the dose for blood in the urine and INR of 3.2. Today, the INR is 1.09 and I plan to resume at a lower dose. Last dose at the correction was 6 mg daily and I will resume at 5 mg daily. 4. Asthma. Plan to continue home medications of Singulair and Spiriva. She will have albuterol p.r.n. 5. Chronic pain. The patient will have her OxyContin and oxycodone as well as Robaxin available as needed. 6. Hypothyroidism. Continue levothyroxine. 7. Hypertension. Continue triamterene/hydrochlorothiazide. 8. DVT prophylaxis with heparin subcu in this patient on warfarin with an INR in a subtherapeutic range. 9. Code status is full code. MOLST form is on the chart. TIME SPENT: Approximately 60 minutes were spent on the admission of this patient, more than half the time spent with the patient and her daughter at the bedside reviewing the events leading up to this hospitalization, performing the physical examination, and reviewing the plan of care. LEXI SCHNEIDER NP [id number]/[facility] #: [id number] FUNMILAYO
[2017-09-06] MEDS: oxyCODONE TAB* 5 MG TAB PO PRN ×4 (03:45→23:37)
[2017-09-06] MEDS: Methocarbamol TAB* 500 MG PO PRN ×3 (03:48→23:26)
[2017-09-06] MEDS: Levothyroxine TAB* 100 MCG TAB PO SCH (05:57)
[2017-09-06] MEDS: Heparin VIAL(*) 5000 UNITS/ML VIAL (FIVE THOUSAND) SUBCUT SCH ×3 (05:57→20:41)
[2017-09-06 06:05] LABS: Urine Appearance Clear; Urine Blood 2+ (Negative); Urine Color Yellow; Urine Ketones Negative (Negative); Urine Protein Negative (Negative); Urine Specific Gravity 1.009 (1.010-1.030); Urine Urobilinogen Negative (Negative)
[2017-09-06 06:47] LABS: ABS Basophils 0 10^3/ul (0-0.2); ABS Eosinophils 0.4 10^3/ul (0-0.6); ABS Lymphocytes 0.9 10^3/ul (1.0-4.8); ABS Monocytes 0.5 10^3/ul (0-0.8); ABS Neutrophils 2.7 10^3/ul (1.5-7.7); ABS Nucleated RBC 0 10^3/ul; Eosinophil % 8.6 % (0-6); Hematocrit 29 % (35-47); Lymphocyte % 20.3 % (25-47); Mean Corpuscular HGB Conc 34 g/dl (31-36); Mean Corpuscular Hemoglobin 30 pg (27-31); Mean Corpuscular Volume 88 fL (80-97); Mean Platelet Volume 7 um3 (7.4-10.4); Nucleated Red Blood Cells % 0; Platelet Count 416 10^3/ul (150-450); Red Blood Count 3.35 10^6/ul (4.0-5.4); Red Cell Distribution Width 14 % (10.5-15); White Blood Count 4.6 10^3/ul (3.5-10.8)
[2017-09-06] MEDS: Montelukast Sodium TAB* 10 MG PO SCH (08:55)
[2017-09-06] MEDS: Potassium Chlor TAB* 20 MEQ TAB.ER PO SCH ×4 (08:55→20:37)
[2017-09-06] MEDS: Sertraline* 50 MG TAB PO SCH ×2 (08:55→20:39)
[2017-09-06] MEDS: Triamterene/HCTZ 37.5-25 MG* CAP PO SCH (08:55)
[2017-09-06] MEDS: Senna TAB PO SCH ×2 (08:55→20:36)
[2017-09-06] MEDS: oxyCODONE SR TAB(*) 40 MG TAB.SR PO SCH ×2 (08:55→20:37)
[2017-09-06] MEDS ORDERED: cefTRIAXone VIAL(*) 1,000 MG VIAL IVPB SCH (09:00)
[2017-09-06] MEDS ORDERED: Spiriva Inhaler DEVICE* 1 EACH DEVICE INH SCH (09:00)
[2017-09-06] MEDS: MAGNESIUM GLUCONATE 500 MG PO SCH ×4 (09:13→20:25)
[2017-09-06] MEDS: guaiFENesin LIQ* 100 MG/5 ML UDC PO PRN ×2 (09:32→16:49)
[2017-09-06] MEDS: Tiotropium CAP.INH* CAP.INH/18 MCG (USE ORDER SET !) INH SCH (09:33)
--- NOTE | 2017-09-06 14:04 | CONS ---
CONSULTATION REPORT: DATE OF CONSULT: 09/06/17 REQUESTING PROVIDER: Dr. Medellin. CONSULTING SERVICE: Infectious Disease. REASON FOR CONSULT: Cough. IMPRESSION: 1. Three to four days of cough, which is nonproductive. She has had a little bit of postnasal drip. No clear infiltrate on chest x-ray. Lungs sounds are clear without fever or leukocytosis. I think more likely based on upper airway irritation or upper airway infection, i.e., bronchitis including viral or atypical organisms. 2. Prosthetic right knee infection, status post explantation of the joint, on ceftriaxone. 3. Elevated C-reactive protein due to right knee infection down to 57 from 300 at the time of her last admission. 4. History of deep venous thrombosis . 5. Asthma. RECOMMENDATION: 1. Doxycycline 100 mg by mouth twice a day. 2. Influenza PCR. 3. Continue ceftriaxone. HISTORY OF PRESENT ILLNESS: An 82-year-old woman with a cough, currently being treated for right knee infection. The cough had developed over the last 3 or 4 days while she has been in the [facility]. She noted her roommate had a cough and was being treated for pneumonia. Did not have the flu as far as she knows. Zaida has a little bit of muscle ache. No fevers, chills, or sweats. The cough is nonproductive. There is no blood either. She has no chest pain or shortness of breath. The cough is day and night. Cough medicines helped. Her right knee continues to be painful. She is in an immobilizer. Doing some physical therapy. She thinks the swelling is slowly improving. PAST MEDICAL HISTORY: 1. Status post bilateral knee arthroplasty, complicated by right prosthetic knee infection, explanted August 2017, due to group B strep. 2. History of DVT, August 2017. 3. Bowel obstruction and ventral hernia. 4. Asthma. 5. Hypertension. 6. Hypothyroidism. 7. Spinal stenosis. 8. Anxiety. 9. Depression. 10. Peripheral neuropathy. MEDICATIONS: 1. Albuterol inhaler. 2. Ceftriaxone 2 g a day. 3. Guaifenesin. 4. Heparin subcutaneous injection. 5. Levothyroxine. 6. Singulair. 7. Methocarbamol as needed. 8. Oxycodone as needed. 9. OxyContin every 12 hours. 10. Senna. 11. Sertraline. 12. Spiriva. 13. Warfarin. ALLERGIES: IODINATED DIAGNOSTIC AGENTS, IODINE, PENICILLIN, CIPROFLOXACIN, ERYTHROMYCIN, SULFA, TETRACYCLINE. FAMILY HISTORY: No recurrent infections. SOCIAL HISTORY: She is at [facility], couple of people with pneumonia there. She has had no travel. REVIEW OF SYSTEMS: All negative to a 14-point review of systems except as noted above. PHYSICAL EXAM: Vital Signs: Temperature 37, heart rate 80, respiratory rate 16 , blood pressure 140/55, oxygen saturation 99% on room air. In general, she is awake, not in distress. Neurologic: She is oriented x3. Follows commands. HEENT : There is no conjunctival hemorrhage. Oropharynx: Without lesions. Neck is supple without nuchal rigidity. Lymph Nodes: There is no cervical, supraclavicular, inguinal, axillary, or epitrochlear lymphadenopathy. Heart has regular rate and rhythm without murmurs, rubs, or gallops. Lungs are clear to auscultation bilaterally. Abdomen: Soft, nontender, nondistended. There are bowel sounds present. Skin: There is no rash or splinter hemorrhages. Musculoskeletal: Right knee incision has healed. There is mild warmth and tenderness without erythema, crepitus, or fluctuance. LABORATORY DATA: Creatinine is 0.8. ALT is 5. CRP 57. White blood cell count 4, hemoglobin 10, platelets 416. Please see impressions and recommendations as outlined above, which I have discussed with Dr. Medellin. Thanks for asking me to see Ms. Duke in consultation. [id number]/[facility] #: [id number] MTDD
[2017-09-06] MEDS: DOXYcycline CAP(*) 100 MG PO SCH ×2 (14:20→20:36)
--- NOTE | 2017-09-06 14:47 | RAD ---
HISTORY: Cough COMPARISONS: December 21, 2011 TECHNIQUE: Multiple contiguous axial CT scans of the chest were obtained without intravenous contrast. Coronal and sagittal multiplanar reformations are also submitted for review. FINDINGS: NECK AND THYROID: The lower neck and thyroid are unremarkable. CHEST WALL: There is no lower cervical, axillary, or supraclavicular lymphadenopathy by size criteria. HEART AND PERICARDIUM: The heart is unremarkable. AORTA AND PULMONARY VASCULATURE: The aorta and pulmonary vasculature are normal. MEDIASTINUM: There are multiple subcentimeter short axis mediastinal lymph nodes, largest in the pretracheal space on the right measuring up to 0.9 cm in size. These are similar to the previous examination. SANDRA: There is no hilar lymphadenopathy by size criteria. AIRWAY AND ESOPHAGUS: The airway is unremarkable, without endobronchial filling defect. The esophagus is grossly normal. LUNG PARENCHYMA: There is minimal linear opacification of the lung bases consistent with pleuroparenchymal scarring. PLEURA: No pleural abnormalities are noted. UPPER ABDOMEN: The patient is status post cholecystectomy. There is a fat-containing ventral hernia. BONES AND SOFT TISSUES: There is a scoliotic curvature of the spine. Degenerative changes are noted. OTHER: None. IMPRESSION: 1. BIBASILAR PLEUROPARENCHYMAL SCARRING. 2. STABLE PROMINENT MEDIASTINAL LYMPH NODES WITHOUT LYMPHADENOPATHY BY SIZE CRITERIA. 3. SCOLIOSIS. 4. DEGENERATIVE DISC DISEASE AND OSTEOARTHRITIS. 5. FAT-CONTAINING VENTRAL HERNIA
[2017-09-06] MEDS: Ondansetron ODT TAB* 4 MG PO PRN (16:43)
[2017-09-06] MEDS: Warfarin TAB(*) 5 MG PO SCH (16:43)
[2017-09-07] MEDS: Levothyroxine TAB* 100 MCG TAB PO SCH (04:47)
[2017-09-07] MEDS: Heparin VIAL(*) 5000 UNITS/ML VIAL (FIVE THOUSAND) SUBCUT SCH ×3 (04:48→20:43)
[2017-09-07] MEDS: oxyCODONE TAB* 5 MG TAB PO PRN ×4 (04:48→20:42)
[2017-09-07 07:48] LABS: Hematocrit 31 % (35-47); Mean Corpuscular HGB Conc 33 g/dl (31-36); Mean Corpuscular Hemoglobin 28 pg (27-31); Mean Corpuscular Volume 88 fL (80-97); Mean Platelet Volume 7 um3 (7.4-10.4); Platelet Count 380 10^3/ul (150-450); Red Blood Count 3.51 10^6/ul (4.0-5.4); Red Cell Distribution Width 15 % (10.5-15); White Blood Count 4.9 10^3/ul (3.5-10.8)
[2017-09-07 08:07] LABS: EGFR Non-African American 64.8 (>60)
[2017-09-07] MEDS: Triamterene/HCTZ 37.5-25 MG* CAP PO SCH (08:53)
[2017-09-07] MEDS: Potassium Chlor TAB* 20 MEQ TAB.ER PO SCH ×4 (08:53→20:41)
[2017-09-07] MEDS: Sertraline* 50 MG TAB PO SCH ×2 (08:53→20:42)
[2017-09-07] MEDS: Montelukast Sodium TAB* 10 MG PO SCH (08:53)
[2017-09-07] MEDS: DOXYcycline CAP(*) 100 MG PO SCH ×2 (08:53→20:38)
[2017-09-07] MEDS: MAGNESIUM GLUCONATE 500 MG PO SCH ×4 (08:54→20:30)
[2017-09-07] MEDS: oxyCODONE SR TAB(*) 40 MG TAB.SR PO SCH ×2 (08:54→20:41)
[2017-09-07] MEDS: Senna TAB PO SCH ×2 (08:54→20:41)
[2017-09-07] MEDS: Tiotropium CAP.INH* CAP.INH/18 MCG (USE ORDER SET !) INH SCH (10:34)
--- NOTE | 2017-09-07 10:44 | PN ---
Progress Note - Progress Note Date of Service: 09/07/17 Note: 3 weeks since removal right total knee. Here for respiratory distress and PICC line dysfunction. Knee pain is under control. Right knee surgery is clean, dry, non-fluctuant and no drainage. She can lift her leg a little and move her right ankle up and down. Right foot swelling is nil and less than 3 weeks ago. She is on heparin SQ now and Coumadin. IV Ceftriaxone planned through 10/12 (8 weeks) per Dr. Kulkarni. Then an aspiration by me 2 weeks after that (about ) Will make tentative plans for new knee 11/02/17. Impression: Right Total knee infection. Plans: as above
[2017-09-07 11:58] LABS: INR 1.07 (0.77-1.02)
[2017-09-07] MEDS: Methocarbamol TAB* 500 MG PO PRN (14:08)
[2017-09-07] MEDS: Warfarin TAB(*) 5 MG PO SCH (17:01)
[2017-09-07] MEDS: Ondansetron ODT TAB* 4 MG PO PRN (19:18)
[2017-09-07] MEDS: Fluticasone NASAL SPRAY 50MCG* 16 gm SPRAY BTL BOTH NARES SCH (21:33)
--- NOTE | 2017-09-07 23:26 | TRS ---
ADDENDUM TO TRANSFER SUMMARY (original transfer summary dictation below): DATE OF ADMISSION: 09/05/2017. DATE OF TRANSFER: 09/09/2017. HISTORY OF PRESENT ILLNESS: The patient could not be transferred on 09/07/2017 because of delay in placing the PICC line. Because of previous difficulty placing a PICC line, it was decided to place it in Radiology. This could not be done until 09/08/2017. It was done late enough in the day that she could not be transferred on that date. It was placed and it seems to be working properly. The patient is still coughing at the time of discharge. Her lungs sound crackly. She has expiratory wheezes with forced expiration. Her exam is otherwise unchanged. She is on Doxycycline for the respiratory infection. I will add in a short course of steroids as well, Prednisone 20 mg twice a day for five days. Her INR is finally coming up with an INR today of 1.37. This should continue to be monitored closely. Her Warfarin dose at the present time should be 7 mg daily. Otherwise there is no change in her instructions from the time the previous discharge diagnosis was dictated. Please feel free to call me with any questions, [phone]. LABORATORY DATA: Her labs from September 09 showed that her CRP is actually up at 109.07. [id number]/[facility] #: [id number] TRANSFER SUMMARY: DATE OF ADMISSION: 09/05/17 DATE OF POTENTIAL TRANSFER: 09/07/17 TRANSFER DIAGNOSES: 1. Displaced PICC line. 2. Cough, either viral or atypical organisms as etiology. 3. Prosthetic joint infection with Streptococcus agalactiae. 4. Hypothyroidism. 5. Ventral hernia. 6. Osteoarthritis. 7. Asthma. 8. Hypertension. 9. History of chronic low back pain. 10. History of anxiety and depression. 11. Status post bilateral knee replacements. 12. Status post colon resection. 13. Status post bilateral carpal tunnel release. 14. Status post bilateral cataract surgery. 15. Status post hysterectomy with aortic rupture at the time of hysterectomy. 16. Spinal stenosis. 17. History of vertigo. 18. History of pulmonary embolism in 2011. 19. 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 20. Anemia postop and of acute illness. 21. Allergic rhinitis. HISTORY: Zaida Duke is an 82-year-old woman admitted after her PICC line was nonfunctional at the group home and with recent cough. Please see the dictated admission note for details of the present illness, past medical history , family history, social and personal history, review of systems and physical examination. LABORATORY DATA: CBC on admission: WBC 5.5, H and H 06/08, MCV 88, PLT 523, 000. CBC on 09/06/17: WBC 4.6, H and H 06/06, MCV 88, PLT 416,000. CBC on : WBC 4.9, H and H 06/08, PLT 380,000. INR was 1.09 on 09/05/17. PTT was 32.4. INR on 09/07/17 is pending. Chemistries: Sodium 133, potassium 4.6, chloride 101, CO2 27, BUN and creatinine 50/0.80, glucose 98. Rest of the comprehensive metabolic panel was within normal limits except calcium slightly low at 8.5 and alk phos 107 slightly elevated on admission. Albumin was also slightly low at 2.9. Lactic acid normal at 1. Repeat chemistries on 09/07/17: Sodium 133, potassium 4.5, chloride 100, CO2 28, BUN and creatinine 17/0.84, glucose 86. Rest of the comprehensive metabolic panel was within normal limits except for alk phos 111, albumin 2.8, globulin 4.1. CRPs on 09/05/17 was 57.40 and 09/07/17 was 69.36. Urinalysis: Yellow, clear, specific gravity 1.009, pH 6. Dipstick is positive for blood 2+, rbc's 2+. Serology negative for influenza. Blood cultures x2 were no growth. IMAGING: Chest x-ray on admission showed the catheter within its tip at the level of the right axilla. There was felt to be a lingular infiltrate in addition to mild biapical scarring. CT scan of the chest on 09/06/17 did not show any infiltrates. There were basilar pleural parenchymal scarring, stable prominent mediastinal lymph nodes, degenerative disk disease and osteoarthritis and fat containing ventral hernia. EKG on 09/05/17 was sinus rhythm, probable left atrial enlargement, low voltage pericardial leads. CONSULTATIONS: Infectious disease, Dr. Kulkarni, 09/06/17. He stated that the patient had a cough without clear infiltrate and felt it was likely a viral or atypical organism infection, she was responding to IV ceftriaxone with regards to her right knee infection. He recommended doxycycline, influenza PCR which was done, continuing ceftriaxone. HOSPITAL COURSE: The patient was admitted. She is currently awaiting PICC line replacement after the PICC line was removed. She was started on doxycycline for her cough. Her INR is being rechecked today prior to transfer if a bed is available and she can get the PICC line prior to 2 p.m. Other than the cough, she was alright during her hospitalization. Her vital signs remained stable. She was afebrile. DIET: At the time of discharge, she is to be on a regular diet. ACTIVITY: As per Ortho. She is nonweightbearing on the right leg. MEDICATIONS: 1. Albuterol 2 puffs inhaled every 4 hours as needed for shortness of breath and wheezing. 2. Ceftriaxone 2 g IV every day. 3. Levocetirizine 5 mg daily. 4. Fluticasone 2 sprays each nostril daily. 5. Potassium chloride 20 mEq p.o. 4 times a day. 6. Sertraline 50 mg twice a day. 7. Mag G 1 p.o. q.i.d. 8. Singulair 10 mg p.o. daily. 9. Triamterene/hydrochlorothiazide 37.5/25 mg p.o. daily. 10. Zofran 8 mg p.o. t.i.d. p.r.n. nausea. 11. Levothyroxine 100 mcg p.o. daily. 12. Spiriva Respimat 2 inhalations every day. 13. OxyContin 40 mg p.o. q.12h. 14. Oxycodone 5 mg p.o. q.4h. p.r.n. moderate pain and 10 mg q.4h. p.r.n. severe pain. 15. Dulera 200/5 two puffs inhaled twice a day. 16. Docusate 100 mg twice a day. 17. Estropipate 0.75 mg p.o. daily. 18. Milk of magnesia 30 cc p.o. daily p.r.n. constipation. 19. Multivitamins 1 daily. 20. Chromium picolinate 500 mg 2 p.o. daily. 21. Ginkgo biloba 120 mg p.o. daily. 22. Airborne 1 p.o. daily. 23. Green tea extract 315 mg p.o. daily. 24. Ginseng extract 2 p.o. daily. 25. Glucosamine chondroitin 2 p.o. daily. 26. Warfarin 6 mg p.o. daily or as directed. 27. Methocarbamol 1000 mg p.o. q.i.d. 28. Doxycycline 100 mg p.o. b.i.d. for 1 week. 29. Enoxaparin 30 mg subcutaneous every 12 hours until INR over 2. CODE STATUS: She is a full code. DISCHARGE INSTRUCTIONS: She is to have physical therapy. She is to have weekly CBC, CRP, CMP, and INR. Copy of the CBC, CMP, CRPs to Dr. Kulkarni. INR also should be done on 09/10/17. [id number]/[facility] #: [id number] [facility]
[2017-09-08] MEDS: oxyCODONE TAB* 5 MG TAB PO PRN ×4 (03:26→23:25)
[2017-09-08] MEDS: Heparin VIAL(*) 5000 UNITS/ML VIAL (FIVE THOUSAND) SUBCUT SCH ×3 (05:25→20:36)
[2017-09-08] MEDS: Levothyroxine TAB* 100 MCG TAB PO SCH (05:25)
[2017-09-08] MEDS: Ondansetron ODT TAB* 4 MG PO PRN ×3 (08:08→23:59)
[2017-09-08] MEDS: Senna TAB PO SCH ×2 (08:09→20:35)
[2017-09-08] MEDS: Fluticasone NASAL SPRAY 50MCG* 16 gm SPRAY BTL BOTH NARES SCH (08:09)
[2017-09-08] MEDS: DOXYcycline CAP(*) 100 MG PO SCH ×2 (08:09→20:30)
[2017-09-08] MEDS: Sertraline* 50 MG TAB PO SCH ×2 (08:09→20:34)
[2017-09-08] MEDS: Potassium Chlor TAB* 20 MEQ TAB.ER PO SCH ×4 (08:09→20:33)
[2017-09-08] MEDS: oxyCODONE SR TAB(*) 40 MG TAB.SR PO SCH ×2 (08:10→20:50)
[2017-09-08] MEDS: Triamterene/HCTZ 37.5-25 MG* CAP PO SCH (08:10)
[2017-09-08] MEDS: Montelukast Sodium TAB* 10 MG PO SCH (08:10)
[2017-09-08] MEDS: MAGNESIUM GLUCONATE 500 MG PO SCH ×4 (08:11→20:36)
[2017-09-08] MEDS ORDERED: Warfarin TAB(*) 2 MG PO ONE (10:00)
[2017-09-08] MEDS: Tiotropium CAP.INH* CAP.INH/18 MCG (USE ORDER SET !) INH SCH (10:33)
[2017-09-08] MEDS ORDERED: Warfarin TAB(*) 3 MG PO SCH (17:00)
[2017-09-08] MEDS ORDERED: Warfarin TAB(*) 4 MG PO SCH (17:00)
[2017-09-08] MEDS: Methocarbamol TAB* 500 MG PO PRN ×2 (17:23→23:56)
[2017-09-09] MEDS: Ondansetron ODT TAB* 4 MG PO PRN (06:33)
[2017-09-09] MEDS: Levothyroxine TAB* 100 MCG TAB PO SCH (06:33)
[2017-09-09] MEDS: Heparin VIAL(*) 5000 UNITS/ML VIAL (FIVE THOUSAND) SUBCUT SCH (06:35)
[2017-09-09] MEDS: oxyCODONE TAB* 5 MG TAB PO PRN ×2 (06:51→12:40)
[2017-09-09] MEDS: Tiotropium CAP.INH* CAP.INH/18 MCG (USE ORDER SET !) INH SCH (07:50)
--- NOTE | 2017-09-09 08:31 | RAD ---
CPT II Codes: 6045F INDICATION: Necessity for long-term intravenous antibiotic administration COMPARISON: CT chest September 06, 2017 FLUOROSCOPY TIME: 1 minute and 6 seconds TECHNIQUE: The benefits and risks of the procedure were explained to the patient. The patient consented to the exam. A timeout was performed before beginning the procedure. Ultrasound of the right upper arm demonstrates a patent basilic that was selected for PICC line access. Sterile precautions were employed, including standard sterile prep and drape, utilization of sterile gloves, gown, cap and mask. The skin and subcutaneous tissue overlying the vein was anesthetized with 1% lidocaine injected locally. Utilizing sonographic guidance the vein was accessed with a 21-gauge needle. An ultrasound image was recorded. A guidewire was advanced into the superior vena cava under fluoroscopic guidance. The peel-away sheath was advanced over the wire into the lumen of the vein. A 4-Marshallese single lumen PICC catheter was placed over a guidewire. The tip of the catheter was in the cavoatrial junction confirmed with fluoroscopy. The catheter was secured in place with an adhesive device and the percutaneous site was dressed with sterile gauze. The patient tolerated the procedure with no complications. IMPRESSION: PLACEMENT OF A 4-MOHAWK SINGLE LUMEN PICC CATHETER WITHOUT COMPLICATION.
[2017-09-09 08:59] VITALS: BP 121/92
[2017-09-09] MEDS: Montelukast Sodium TAB* 10 MG PO SCH (09:08)
[2017-09-09] MEDS: oxyCODONE SR TAB(*) 40 MG TAB.SR PO SCH (09:08)
[2017-09-09] MEDS: Fluticasone NASAL SPRAY 50MCG* 16 gm SPRAY BTL BOTH NARES SCH (09:08)
[2017-09-09] MEDS: DOXYcycline CAP(*) 100 MG PO SCH (09:08)
[2017-09-09] MEDS: Senna TAB PO SCH (09:08)
[2017-09-09] MEDS: Sertraline* 50 MG TAB PO SCH (09:08)
[2017-09-09] MEDS: Potassium Chlor TAB* 20 MEQ TAB.ER PO SCH (09:09)
[2017-09-09] MEDS: Triamterene/HCTZ 37.5-25 MG* CAP PO SCH (09:09)
[2017-09-09] MEDS: MAGNESIUM GLUCONATE 500 MG PO SCH (09:10)
[2017-09-09 09:14] LABS: Hematocrit 30 % (35-47); Mean Corpuscular HGB Conc 33 g/dl (31-36); Mean Corpuscular Hemoglobin 29 pg (27-31); Mean Corpuscular Volume 87 fL (80-97); Mean Platelet Volume 7 um3 (7.4-10.4); Platelet Count 321 10^3/ul (150-450); Red Cell Distribution Width 14 % (10.5-15); White Blood Count 5.1 10^3/ul (3.5-10.8)
[2017-09-09 09:28] LABS: INR 1.37 (0.77-1.02)
[2017-09-09 09:29] LABS: EGFR Non-African American 82.6 (>60)
--- NOTE | 2017-09-09 11:44 | TRS ---
ADDENDUM TO TRANSFER SUMMARY DATE OF ADMISSION: 09/05/2017. DATE OF TRANSFER: 09/09/2017. HISTORY OF PRESENT ILLNESS: The patient could not be transferred on 09/07/2017 because of delay in placing the PICC line. Because of previous difficulty placing a PICC line, it was decided to place i t in Radiology. This could not be done until 09/08/2017. It was done late enough in the day that sh e could not be transferred on that date. It was placed and it seems to be working properly. The pat ient is still coughing at the time of discharge. Her lungs sound crackly. She has expiratory wheeze s with forced expiration. Her exam is otherwise unchanged. She is on Doxycycline for the respirator y infection. I will add in a short course of steroids as well, Prednisone 20 mg twice a day for five days. Her INR is finally coming up with an INR today of 1.37. This should continue to be monitored closely. Her Warfarin dose at the present time should be 7 mg daily. Otherwise there is no change i n her instructions from the time the previous discharge diagnosis was dictated. Please feel free to call me with any questions, [phone]. LABORATORY DATA: Her labs from September 09 showed that her CRP is actually up at 109.07. [id number]/[facility] #: [id number]
--- NOTE | 2017-09-12 14:18 | ED ---
I, Lluvia Harrison, scribed for Lito Rose MD on 09/05/17 at 1749 . Re-Evaluation - Re-Evaluation First Eval Re-Evaluation Time: 17:52 Change: Unchanged - Pt is on bed gonzalez. Course/Dx - Course Course Of Treatment: [facility]a contacted pts retirement. They reported they cannot administer IV abx. ED physician is concerned that Rocephin is insufficient for her pneumonia. The retirement cannot arrange picc lines. The retirement refuses discharge of the pt to the facility. Admission will be required for triple abx therapy and picc line placement. Dr. Graves agrees with plan for admission. She requests that admission is completed by the hospitalist. - Diagnoses Provider Diagnoses: Healthcare-associated pneumonia, picc line malfunction - Provider Notifications Discussed Care Of Patient With: Myron Queen - Agreed to admit pt. Time Discussed With Above Provider: 18:40 Instructed by Provider To: Admit As Inpatient The documentation as recorded by the Hunter laureano Stephanie accurately reflects the service I personally performed and the decisions made by , Lito Rose MD.
--- NOTE | 2017-09-12 14:18 | ED ---
Aria Barajas Emily, scribed for Lito Rose MD on 09/05/17 at 1539 . Complex/Multi-Sys Presentation - HPI Summary HPI Summary: This patient is an 82 year old F BIBA to [facility] with a chief complaint of a blocked picc line block that began earlier today. The patient rates the pain 0/ 10 in severity. Symptoms aggravated by nothing. Symptoms alleviated by nothing. Patient denies fever. Pt reports having her knee completely removed and replaced with a concrete block. Pt reports having the picc line for antibiotics , due to a streptococcus agalactiae infection associated with her knee surgery. - History Of Current Complaint Chief Complaint: EDExtremityUpper Time Seen by Provider: 09/05/17 15:17 Hx Obtained From: Patient Onset/Duration: Sudden Onset, Lasting Hours, Still Present Timing: Constant Severity Currently: Mild Severity Initially: Mild Aggravating Factor(s): Nothing Alleviating Factor(s): Nothing Associated Signs And Symptoms: Negative: Fever - Allergies/Home Medications Allergies/Adverse Reactions: Allergies Allergy/AdvReac Type Severity Reaction Status Date / Time MS Iodinated Diagnostic Allergy Hives/Diff. Verified 08/19/17 09:12 Agents Breathing/I [Iodinated Diagnostic Agents] tching MS Iodine [Iodine] Allergy Anaphylatic Verified 07/05/17 09:35 Shock MS Penicillins [Penicillins] Allergy Hives/Diff. Verified 07/05/17 09:35 Breathing/I tching Adhesive Tape AdvReac Rash Verified 07/05/17 09:35 MS Ciprofloxacin [From Cipro] AdvReac Vomiting Verified 07/05/17 09:35 MS Erythromycin AdvReac Vomiting Verified 07/05/17 09:35 [Erythromycin] MS Sulfa Drugs [Sulfa Drugs] AdvReac Nausea Verified 07/05/17 09:35 MS Tetracycline AdvReac Nausea Verified 07/05/17 09:35 [Tetracycline] CT CONTRAST Allergy Severe HIVES/DIFFICULTY Uncoded 07/05/17 09:35 BREATHING Home Medications: Home Medications LevoCETirizine TAB (NF) [Xyzal TAB (NF)] 5 mg PO DAILY 09/05/17 [History Confirmed 09/05/17] Senna TAB* [Senokot TAB*] 2 tab PO BID 09/05/17 [History Confirmed 09/05/17] Spiriva Inhaler DEVICE* [Tiotropium Inhaler DEVICE*] 1 inh INH DAILY 09/05/17 [ History Confirmed 09/05/17] Triamterene/HCTZ 37.5-25 MG* [Dyazide CAP*] 1 cap PO DAILY 09/05/17 [History Confirmed 09/05/17] Warfarin TAB(*) [Coumadin TAB(*)] 6 mg PO DAILY 09/05/17 [History Confirmed ] cefTRIAXone VIAL(*) [Rocephin VIAL(*)] 2,000 mg IV DAILY 09/05/17 [History Confirmed 09/05/17] PMH/Surg Hx/FS Hx/Imm Hx Previously Healthy: No Endocrine/Hematology History: Reports: Hx Thyroid Disease, Hx Anemia Denies: Hx Diabetes Cardiovascular History: Reports: Hx Angina, Hx Deep Vein Thrombosis, Hx Embolism , Hx Hypertension, Other Cardiovascular Problems/Disorders Denies: Hx Coronary Artery Disease, Hx Myocardial Infarction, Hx Pacemaker/ ICD Respiratory History: Reports: Hx Asthma, Hx Pneumonia, Hx Pulmonary Embolism - 2011, Hx Seasonal Allergies, Other Respiratory Problems/Disorders - pneumonia GI History: Reports: Hx Hiatal Hernia, Other GI Disorders - hernia repair x3 Denies: Hx Gastroesophageal Reflux Disease, Hx Jaundice History: Reports: Other Problems/Disorders - per H+P CKD Denies: Hx Renal Disease Musculoskeletal History: Reports: Hx Arthritis, Hx Back Problems - chronic low back pain, Hx Gout, Hx Orthopedic Injury - fx left shoulder, Hx Scoliosis, Other Musculoskeletal History - bilateral knee replacement, lower right leg cellulitis Sensory History: Reports: Hx Cataracts, Hx Contacts or Glasses Denies: Hx Hearing Aid Opthamlomology History: Reports: Hx Cataracts, Hx Contacts or Glasses Neurological History: Reports: Hx Nerve Disease - "stocking feet" tremors, Other Neuro Impairments/Disorders - spinal stenosis - pain clinic patient Psychiatric History: Reports: Hx Anxiety, Hx Depression Denies: Hx Panic Disorder - Surgical History Surgery Procedure, Year, and Place: Appendectomy. L knee scope. lumbar discectomy 30 yrs ago. Abdominal Obstruction/Hernia Repair with Mesh syr 2012 - hernia repair x3 and replacement of infected mesh. Hysterectomy. right tkr [facility]. left TKR 08/23 [facility]. right macular hole repair syr. Bilateral cataract [facility]. Revision right total knee secondary to infection 2016 Hx Anesthesia Reactions: No Infectious Disease History: Yes Infectious Disease History: Reports: Hx of Known/Suspected MRSA - see above, History Other Infectious Disease Denies: Traveled Outside the [place] in Last 30 Days - Family History Known Family History: Positive: Hypertension - Social History Occupation: Retired Lives: With Family Alcohol Use: Occasionally Hx Substance Use: No Substance Use Type: Reports: None Hx Tobacco Use: No Smoking Status (MU): Never Smoked Tobacco Have You Smoked in the Last Year: No Review of Systems Negative: Fever, Chills, Skin Diaphoresis Negative: Erythema Negative: Sore Throat Positive: Other - Positive blocked picc line. Negative: Chest Pain Negative: Shortness Of Breath, Cough Negative: Abdominal Pain, Vomiting, Nausea Negative: dysuria, hematuria Negative: Edema Negative: Rash Neurological: Other - Negative dizziness All Other Systems Reviewed And Are Negative: Yes Physical Exam - Summary Physical Exam Summary: Constitutional: Well-developed, Well-nourished, Alert. (-) Distressed Skin: Warm, Dry HENT: Normocephalic; Atraumatic Eyes: Conjunctiva normal Neck: Musculoskeletal ROM normal neck. (-) JVD, (-) Stridor, (-) Tracheal deviation Cardio: Rhythm regular, rate normal, Heart sounds normal; Intact distal pulses; The pedal pulses are 2+ and symmetric. Radial pulses are 2+ and symmetric. (-) Murmur Pulmonary/Chest wall: Effort normal. (-) Respiratory distress, (-) Wheezes, (-) Rales Abd: Soft, (-) Tenderness, (-) Distension, (-) Guarding, (-) Rebound; Soft, reducible ventral hernia Musculoskeletal: (-) Edema Lymph: (-) Cervical adenopathy Neuro: Alert, Oriented x3 Psych: Mood and affect Normal Triage Information Reviewed: Yes Vital Signs On Initial Exam: Initial Vitals Temp Pulse Resp BP Pulse Ox 98.5 F 79 16 126/63 97 09/05/17 15:22 09/05/17 15:22 09/05/17 15:22 09/05/17 15:22 09/05/17 15:22 Vital Signs Reviewed: Yes Diagnostics - Vital Signs Vital Signs Temp Pulse Resp BP Pulse Ox 09/05/17 15:22 98.5 F 79 16 126/63 97 - Laboratory Lab Results: Lab Results 01/28/18 01/28/18 01/28/18 Range/Units 16:35 16:35 16:35 WBC 5.5 (3.5-10.8) 10^3/ul RBC 3.48 L (4.0-5.4) 10^6/ul Hgb 10.0 L (12.0-16.0) g/dl Hct 31 L (35-47) % MCV 88 (80-97) fL MCH 29 (27-31) pg MCHC 33 (31-36) g/dl RDW 15 (10.5-15) % Plt Count 523 H D (150-450) 10^3/ul MPV 7 L (7.4-10.4) um3 Neut % (Auto) 65.8 (38-83) % Lymph % (Auto) 16.5 L (25-47) % [place] % (Auto) 8.6 (1-9) % Eos % (Auto) 8.1 H (0-6) % Baso % (Auto) 1.0 (0-2) % Absolute Neuts (auto) 3.6 (1.5-7.7) 10^3/ul Absolute Lymphs (auto) 0.9 L (1.0-4.8) 10^3/ul Absolute Monos (auto) 0.5 (0-0.8) 10^3/ul Absolute Eos (auto) 0.4 (0-0.6) 10^3/ul Absolute Basos (auto) 0.1 (0-0.2) 10^3/ul Absolute Nucleated RBC 0 10^3/ul Nucleated RBC % 0 INR (Anticoag Therapy) 1.09 H (0.77-1.02) APTT 32.4 (26.0-36.3) seconds Sodium 133 (133-145) mmol/L Potassium 4.6 (3.5-5.0) mmol/L Chloride 101 (101-111) mmol/L Carbon Dioxide 27 (22-32) mmol/L Anion Gap 5 (2-11) mmol/L BUN 15 (6-24) mg/dL Creatinine 0.80 (0.51-0.95) mg/dL Est GFR ( Amer) 88.1 (>60) Est GFR (Non-Af Amer) 68.5 (>60) BUN/Creatinine Ratio 18.8 (8-20) Glucose 98 (70-100) mg/dL Lactic Acid (0.5-2.0) mmol/L Calcium 8.5 L (8.6-10.3) mg/dL Total Bilirubin 0.30 (0.2-1.0) mg/dL AST 14 (13-39) U/L ALT 5 L (7-52) U/L Alkaline Phosphatase 107 H (34-104) U/L Troponin I 0.00 (<0.04) ng/mL C-Reactive Protein 57.40 H (< 5.00) mg/L Total Protein 6.9 (6.4-8.9) g/dL Albumin 2.9 L (3.2-5.2) g/dL Globulin 4.0 (2-4) g/dL Albumin/Globulin Ratio 0.7 L (1-3) Urine Color Urine Appearance Urine pH (5-9) Ur Specific [place] (1.010-1.030) Urine Protein (Negative) Urine Ketones (Negative) Urine Blood (Negative) Urine Nitrate (Negative) Urine Bilirubin (Negative) Urine Urobilinogen (Negative) Ur Leukocyte Esterase (Negative) Urine WBC (Auto) (Absent) Urine RBC (Auto) (Absent) Urine Bacteria (Absent) Urine Glucose (Negative) 09/05/17 09/06/17 09/06/17 Range/Units 16:35 05:30 06:16 WBC 4.6 (3.5-10.8) 10^3/ul RBC 3.35 L (4.0-5.4) 10^6/ul Hgb 10.0 L (12.0-16.0) g/dl Hct 29 L (35-47) % MCV 88 (80-97) fL MCH 30 (27-31) pg MCHC 34 (31-36) g/dl RDW 14 (10.5-15) % Plt Count 416 (150-450) 10^3/ul MPV 7 L (7.4-10.4) um3 Neut % (Auto) 59.5 (38-83) % Lymph % (Auto) 20.3 L (25-47) % [place] % (Auto) 10.8 H (1-9) % Eos % (Auto) 8.6 H (0-6) % Baso % (Auto) 0.8 (0-2) % Absolute Neuts (auto) 2.7 (1.5-7.7) 10^3/ul Absolute Lymphs (auto) 0.9 L (1.0-4.8) 10^3/ul Absolute Monos (auto) 0.5 (0-0.8) 10^3/ul Absolute Eos (auto) 0.4 (0-0.6) 10^3/ul Absolute Basos (auto) 0 (0-0.2) 10^3/ul Absolute Nucleated RBC 0 10^3/ul Nucleated RBC % 0 INR (Anticoag Therapy) (0.77-1.02) APTT (26.0-36.3) seconds Sodium (133-145) mmol/L Potassium (3.5-5.0) mmol/L Chloride (101-111) mmol/L Carbon Dioxide (22-32) mmol/L Anion Gap (2-11) mmol/L BUN (6-24) mg/dL Creatinine (0.51-0.95) mg/dL Est GFR ( Amer) (>60) Est GFR (Non-Af Amer) (>60) BUN/Creatinine Ratio (8-20) Glucose (70-100) mg/dL Lactic Acid 1.0 (0.5-2.0) mmol/L Calcium (8.6-10.3) mg/dL Total Bilirubin (0.2-1.0) mg/dL AST (13-39) U/L ALT (7-52) U/L Alkaline Phosphatase (34-104) U/L Troponin I (<0.04) ng/mL C-Reactive Protein (< 5.00) mg/L Total Protein (6.4-8.9) g/dL Albumin (3.2-5.2) g/dL Globulin (2-4) g/dL Albumin/Globulin Ratio (1-3) Urine Color Yellow Urine Appearance Clear Urine pH 6.0 (5-9) Ur Specific [place] 1.009 L (1.010-1.030) Urine Protein Negative (Negative) Urine Ketones Negative (Negative) Urine Blood 2+ H (Negative) Urine Nitrate Negative (Negative) Urine Bilirubin Negative (Negative) Urine Urobilinogen Negative (Negative) Ur Leukocyte Esterase Negative (Negative) Urine WBC (Auto) Absent (Absent) Urine RBC (Auto) 2+(6-10/hpf) H (Absent) Urine Bacteria Absent (Absent) Urine Glucose Negative (Negative) Result Diagrams: 09/09/17 08:55 09/09/17 08:55 Lab Statement: Any lab studies that have been ordered have been reviewed, and results considered in the medical decision making process. - Radiology CXR Radiology Interpretation Completed By: Radiologist - CXR reveals, per radiologist, picc catheter with its tip at the level the right axilla lingular infiltrate. ED physician has reviewed this radiology report. - EKG 1614 Cardiac Rate: NL EKG Rhythm: Sinus Rhythm - 78 BPM EKG Interpretation: No STEMI Complex Multi-Symp Course/Dx Assessment/Plan: Signoff to Lluvia Harrison upon scribe shift change pending labs , diagnosis, and disposition - Diagnoses Provider Diagnoses: Healthcare-associated pneumonia, picc line malfunction - Physician Notifications Discussed Care Of Patient With: Grisel Medellin Time Discussed With Above Provider: 15:32 Instructed by Provider To: Other - Consult with Dr. Medellin (hospitalist) at 1532. She recommended the pt have a chest XR. Discharge - Discharge Plan Condition: Stable Disposition: OTHER Discharge Disposition Comment: Signoff to Lluvia Harrison upon scribe shift change The documentation as recorded by the Aria laureano Emily accurately reflects the service I personally performed and the decisions made by me, Lito Rose MD.
== END 2017-09-09 13:30 | DRG 315 ==
LOC: ED 15:07 → MED 19:40 → OBSVTOIN 09-06 10:30
PROVIDERS: ADMIT Pediatrics; ATTEND Internal Medicine Geriatric Medicine
PROC: 02HV33Z Insertion of Infusion Device into Superior Vena Cava, Percutaneous Approach (ICD-10-PCS; principal; 2017-09-08)
DX: T82.524A Displacement of infusion catheter, initial encounter (principal); I82.401 Acute embolism and thrombosis of unspecified deep veins of right lower extremity; G62.9 Polyneuropathy, unspecified; R06.03 Acute respiratory distress; M41.9 Scoliosis, unspecified; T84.53XA Infection and inflammatory reaction due to internal right knee prosthesis, initial encounter; J45.909 Unspecified asthma, uncomplicated; B95.4 Other streptococcus as the cause of diseases classified elsewhere; D64.9 Anemia, unspecified; E03.9 Hypothyroidism, unspecified; R05 Cough; Y82.8 Other medical devices associated with adverse incidents; Y92.9 Unspecified place or not applicable; K43.9 Ventral hernia without obstruction or gangrene; M19.90 Unspecified osteoarthritis, unspecified site; G89.29 Other chronic pain; M54.5 Low back pain; F41.9 Anxiety disorder, unspecified; F32.9 Major depressive disorder, single episode, unspecified; Z96.653 Presence of artificial knee joint, bilateral; Z98.42 Cataract extraction status, left eye; Z98.41 Cataract extraction status, right eye; Z90.710 Acquired absence of both cervix and uterus; M48.00 Spinal stenosis, site unspecified; Z86.711 Personal history of pulmonary embolism; J30.9 Allergic rhinitis, unspecified; M47.9 Spondylosis, unspecified; M51.34 Other intervertebral disc degeneration, thoracic region; Y79.2 Prosthetic and other implants, materials and accessory orthopedic devices associated with adverse incidents; Z79.01 Long term (current) use of anticoagulants; I10 Essential (primary) hypertension; Z88.0 Allergy status to penicillin; Z88.1 Allergy status to other antibiotic agents; Z88.2 Allergy status to sulfonamides; Z91.041 Radiographic dye allergy status; Z91.048 Other nonmedicinal substance allergy status; Z80.1 Family history of malignant neoplasm of trachea, bronchus and lung; Z80.0 Family history of malignant neoplasm of digestive organs; Z80.8 Family history of malignant neoplasm of other organs or systems; Z87.01 Personal history of pneumonia (recurrent); M10.9 Gout, unspecified; R09.82 Postnasal drip
CPT/HCPCS: 36415; 36569; 71046; 71250; 76937; 77001; 80048; 80053; 81003; 81015; 83605; 84484; 85025; 85027; 85610; 85730; 86140; 87040; 87502; 87641; 93005; 94640; 99283; A9270-GY; C1751; G0378; J0692; J0696; J1642; J1644; J3370

== ENCOUNTER 2017-11-10 10:29 | Inpatient (IN) | payer MEDICARE ==
--- NOTE | 2017-10-25 18:07 | HP ---
HISTORY AND PHYSICAL: DATE OF ADMISSION: 11/10/17 She will be coming into [facility] on 11/10/17 for a right knee replacement. CHIEF COMPLAINT: Right knee pain and swelling. HISTORY OF PRESENT ILLNESS: The patient had a strep infection in her right total knee replacement that required complete removal of it and the cement in August of this year. She was sent to the [facility] on 09/10/17. She is now being admitted for reimplantation of the right total knee replacement. The current main concerns are the infected total knee replacement. She has had a DVT of the right leg and has been on Coumadin 6 mg each day. At the [facility], she was on ceftriaxone for 2 months that was stopped recently. Her right knee was aspirated by me on 10/25/17 to see the current status of fluid in the right knee and whether it is growing any bacteria at the current time. They were planning to stop the Coumadin on about 11/05/17 in preparations for this upcoming surgery. The patient has also been doing transfers at the [facility], weightbearing as tolerated on her left lower extremity, and on the right lower extremity she has been wearing a knee immobilizer with some padding in it and she has been right foot touchdown during transfers only. PAST MEDICAL/SURGICAL HISTORY: She has had the recent right leg DVT. She has had bilateral total knee replacements. The right knee replacement was infected in August 2016 and in August 2017. The left total knee replacement has not had infection. The patient has had a longstanding chronic ventral hernia, chronic back pain. She is status post left shoulder fracture and still has some pain there. She has hypothyroid, asthma, hypertension, anxiety and depression. She has had a hysterectomy that was complicated by an aortic rupture. MEDICATIONS: 1. Topical Voltaren. 2. Cyclobenzaprine 5 mg 1 to 2 tablets twice a day. 3. Meclizine as needed. 4. Potassium chloride 20 mEq 4 times a day. 5. Thyroid replacement 100 mcg each day. 6. Sertraline 50 mg twice a day. 7. OxyContin 40 mg b.i.d. 8. Oxycodone 5 mg 4 times daily. 9. Coumadin 6 mg each daily with a plan to stop it 11/05/17. 10. Triamterene/hydrochlorothiazide 37.5/25, 1 each day. 11. Albuterol 2 puffs every 4 hours as needed. 12. Levocetirizine 5 mg each day. 13. Methocarbamol 1000 mg 4 times daily. 14. Dulera 2 puffs twice a day. 15. Fluticasone 2 sprays each nostril each day. ALLERGIES: INTRAVENOUS IODINE, PENICILLIN, SULFA DRUGS, ERYTHROMYCIN, , and TETRACYCLINE. PHYSICAL EXAMINATION GENERAL: Not acutely distressed at rest. The right shoulder elevation is 100 degrees and the left shoulder elevation is 50 to 60 degrees. Neurovascularly, the hands are intact bilaterally. HEENT: The head is NC/AT. The cranial nerves are grossly intact. LUNGS: Clear bilaterally. HEART: Regular. S1 and S2 normal. No murmurs or gallops. ABDOMEN: Round, soft. There is a softball size ventral hernia towards the left side, which is nontender. I do not appreciate masses or tenderness. EXTREMITIES: The right lower extremity, she is able to do a leg raise. The right foot has intact pulses by Doppler, dorsalis pedis and posterior tibial. The right knee has minimal swelling. No drainage. No current redness. The left lower extremity, non-swollen, nontender. The left total knee replacement, well-healed surgical scar with full knee extension, she can do a leg raise and the knee flexes to 90 degrees. IMPRESSION: The patient had an infected right total knee replacement. The knee was removed at the end of August 2017 and she received 8 weeks of intravenous ceftriaxone. She was also treated for deep venous thrombosis at the same time with Lovenox and then Coumadin and she has been on 6 mg each day. PLAN: The preoperative plans, check the right regarding the current deep venous thrombosis status. This will be done on the morning of 11/10/17 and the surgical care is planned for afternoon of 11/10/17. I have answered the patient 's questions and discussed with the patient and her son the possible risks and complications of knee replacement surgery including the added complications with this being her 4th operation and that after this surgery, she cannot bend the knee for probably 6 weeks. The plan is for the operating room and new right total knee replacement. [id number]/[facility] #: [id number] FUNMILAYO
[~2017-11-10 10:29] MED LIST: Buffered Lidocaine 0.9% SYRIN* 5 ML/SYR SYRINGE INTRADERM ONE; Famotidine IV* 10 MG/ML 2 ML (20 mg) IV ONE; Gabapentin CAP(*) 300 MG PO ONE; Levalbuterol 0.63MG/3ML NEB* UNIT OF USE INH ONE
[2017-11-10] MEDS ORDERED: Gabapentin CAP(*) 300 MG ONE (11:41)
[2017-11-10] MEDS ORDERED: ceFAZolin 2 GM PREMIX (*) 2 GM/50 ML BAG IVPB ONE (11:41)
[2017-11-10] MEDS ORDERED: Famotidine IV* 10 MG/ML 2 ML (20 mg) ONE (11:41)
[2017-11-10] MEDS ORDERED: Levalbuterol 0.63MG/3ML NEB* UNIT OF USE INH ONE ×2 (11:44→17:53)
[2017-11-10] MEDS ORDERED: Ondansetron INJ* 2 MG/ML VIAL ONE (12:05)
[2017-11-10] MEDS ORDERED: Dexamethasone IV* 4 MG/ML 1 ML (4 MG) ONE (12:05)
[2017-11-10] MEDS ORDERED: ROPIVACAINE 5 MG/ML 30 ML BTL (0.5%) ONE (12:05)
[2017-11-10] MEDS ORDERED: Propofol* 10 MG/ML 20 ML BTL IV PUSH ONE (12:05)
[2017-11-10] MEDS ORDERED: fentaNYL* 50 MCG/ML 2 ML VIAL (100 MCG VIAL) ONE ×5 (12:05→18:37)
[2017-11-10] MEDS ORDERED: Lidocaine 2% PF * 5 ML VIAL ONE (12:05)
[2017-11-10] MEDS ORDERED: Cisatracurium* 2 MG/ML MDV 5 ML ONE (12:06)
[2017-11-10] MEDS ORDERED: Midazolam* 1 MG/ML 10 ML VIAL (10 MG) ONE (12:06)
[2017-11-10 12:54] LABS: INR 0.97 (0.77-1.02)
[2017-11-10 12:57] LABS: ABS Basophils 0 10^3/ul (0-0.2); ABS Eosinophils 0.2 10^3/ul (0-0.6); ABS Lymphocytes 1.3 10^3/ul (1.0-4.8); ABS Monocytes 0.5 10^3/ul (0-0.8); ABS Neutrophils 4.5 10^3/ul (1.5-7.7); ABS Nucleated RBC 0 10^3/ul; Eosinophil % 3.1 % (0-6); Hematocrit 36 % (35-47); Lymphocyte % 19.5 % (25-47); Mean Corpuscular HGB Conc 33 g/dl (31-36); Mean Corpuscular Hemoglobin 28 pg (27-31); Mean Corpuscular Volume 84 fL (80-97); Mean Platelet Volume 7.7 um3 (7.4-10.4); Nucleated Red Blood Cells % 0.1; Platelet Count 340 10^3/ul (150-450); Red Blood Count 4.31 10^6/ul (4.0-5.4); Red Cell Distribution Width 16 % (10.5-15); White Blood Count 6.5 10^3/ul (3.5-10.8)
[2017-11-10 13:02] LABS: EGFR Non-African American 77.4 (>60)
[2017-11-10] MEDS ORDERED: Bupivacaine 0.5%* 50 ML VIAL ONE (14:01)
[2017-11-10] MEDS ORDERED: Lidocaine 1% MPF wEPI 200,000* 30 ML SDV ONE (14:01)
[2017-11-10] MEDS ORDERED: fentaNYL* 50 MCG/ML 5 ML VIAL (250 MCG VIAL) ONE (14:15)
[2017-11-10] MEDS ORDERED: HYDROmorphone INJ* 1 MG/ML CARPUJECT SYRINGE ONE ×2 (14:44→16:37)
--- NOTE | 2017-11-10 15:56 | HP ---
HISTORY AND PHYSICAL INTERVAL NOTE: DATE OF ADMISSION: 11/10/17 CHIEF COMPLAINT: She has had a strep infection of right total knee replacement in August of 2017. The total knee replacement along with all the cement was removed at the end of August of this year. She was then placed on ceftriaxone for 2 months and she has been keeping the right knee straight. She has had an antibiotic cement spacer in the knee and she has been at the [facility]. The knee was aspirated on 10/25/17, and this resulted in some bloody fluid that had no culture growth. Her C-reactive protein has improved to 14.5, and her white blood count is currently normal and her hemoglobin is 12 and her hematocrit 36%. Platelets were satisfactory. She was seen at the [facility] on 10/27/[address] Sutherland and he felt that she was satisfactory for another operation. She has not had chest pain. PAST MEDICAL HISTORY: Included asthma, anemia, DVT on the right side. This morning, DVT testing was done on the right and left lower extremities and both legs appeared to be clear of DVT at the current time, although the right leg was technically more difficult to complete. PHYSICAL EXAMINATION GENERAL: Today, she is awake, alert, and oriented, cooperative. EXTREMITIES: She is able to do a straight leg raise on her right leg with and without the brace on, the previous right knee surgery is clean and dry. She can lift the leg with the brace off. The knee flexion is just 30 to 40 degrees with discomfort. The right popliteal pulse is 2+. The right dorsalis pedis pulse is 2+. The right posterior tibial pulse is present by Doppler. The patient has active up and down movements of the ankle, and sensation is intact. There is minimal swelling of her leg, ankle, and foot. IMPRESSION AND PLAN: Infected right total knee replacement. She has had 8 weeks of antibiotic treatment and now in interval-free period without any antibiotic. She is not becoming sick and there has been no increasing pain in the right knee or swelling in the right knee and the plan is for reimplantation of a revision right total knee replacement with augmentation as necessary. The risks and complications of the surgery have been discussed with the patient and her son and her daughter and will proceed with it today. [id number]/[facility] #: [id number] [facility]
--- NOTE | 2017-11-10 16:25 | RAD ---
INDICATION: Revision of right total knee replacement COMPARISONS: October 25, 2017 TECHNIQUE: Fluoroscopy was provided for a surgical procedure. Total fluoroscopy time is: 4.3 seconds FINDINGS: Spot images of the straight internal fixation of the right knee. IMPRESSION: FLUOROSCOPY WAS PROVIDED FOR A SURGICAL PROCEDURE
[2017-11-10] MEDS ORDERED: hydrALAZINE IV* 20 MG/ML VIAL ONE (17:38)
[2017-11-10] MEDS ORDERED: Ondansetron INJ* 2 MG/ML VIAL IV PRN ×2 (17:53→18:00)
[2017-11-10] MEDS ORDERED: Naloxone* 0.4 MG/ML 1 ML VIAL IV PRN (17:53)
[2017-11-10] MEDS: fentaNYL* 50 MCG/ML 2 ML VIAL (100 MCG VIAL) IV PRN ×5 (17:54→19:04)
[2017-11-10] MEDS ORDERED: HYDROmorphone INJ* 2 MG/ML CARPUJECT SYRINGE ONE (17:58)
[2017-11-10] MEDS ORDERED: diPHENhydraMINE IV* 50 MG/ML 1 ml VIAL (BENADRYL) IV PRN (18:00)
[2017-11-10] MEDS ORDERED: Acetaminophen TAB* 325 MG PO PRN ×2 (18:00→18:12)
[2017-11-10] MEDS ORDERED: oxyCODONE TAB* 5 MG TAB PO PRN ×2 (18:00→18:12)
[2017-11-10] MEDS ORDERED: Bisacodyl SUPP* 10 MG SUPP PR PRN (18:00)
[2017-11-10] MEDS: HYDROmorphone INJ* 1 MG/ML CARPUJECT SYRINGE IV PRN ×4 (18:00→18:44)
[2017-11-10] MEDS ORDERED: Magnesium Hydroxide LIQ* 30 ML UDC PO PRN ×2 (18:00→18:12)
[2017-11-10] MEDS ORDERED: oxyCODONE/Acetamin 5/325 MG* TAB PO PRN (18:00)
[2017-11-10] MEDS ORDERED: Cyclobenzaprine TAB* 10 MG PO PRN (18:00)
[2017-11-10] MEDS ORDERED: Midazolam* 1 MG/ML 2 ML VIAL (2 MG) IV ONE (18:02)
[2017-11-10] MEDS ORDERED: Midazolam* 1 MG/ML 2 ML VIAL (2 MG) ONE (18:06)
[2017-11-10] MEDS ORDERED: Ondansetron ODT TAB* 4 MG PO PRN (18:12)
[2017-11-10] MEDS ORDERED: GuaiFENesin DM* 5 ML UDC PO PRN (18:12)
[2017-11-10] MEDS ORDERED: DICLOFENAC 1% TOPICAL PRN (18:12)
[2017-11-10] MEDS ORDERED: Glycerin ADULT SUPP PR PRN (18:12)
[2017-11-10] MEDS ORDERED: Albuterol HFA INHALER* 8 gm MDI INH PRN (18:12)
[2017-11-10] MEDS ORDERED: oxyCODONE TAB* 5 MG TAB ONE (18:58)
--- NOTE | 2017-11-10 19:47 | RAD ---
HISTORY: Status post right total knee replacement COMPARISONS: October 25, 2017 VIEWS: 2, Frontal and lateral views of the right knee FINDINGS: BONE DENSITY: Normal. BONES: The patient is status post right knee arthroplasty. There is no hardware failure or osteolysis. JOINTS: The patient is status post right knee arthroplasty. ALIGNMENT: There is no dislocation. SOFT TISSUES: There is post surgical change to the soft tissue OTHER FINDINGS: None. . IMPRESSION: STATUS POST RIGHT KNEE ARTHROPLASTY
[2017-11-10] MEDS ORDERED: Morphine VIAL* 4 MG/ML VIAL (1 ml vial) IV ONE (19:54)
[2017-11-10] MEDS ORDERED: Warfarin TAB(*) 6 MG PO ONE (20:00)
[2017-11-10] MEDS: Montelukast Sodium TAB* 10 MG PO SCH (22:02)
[2017-11-10] MEDS: Sertraline* 50 MG TAB PO SCH (22:02)
[2017-11-10] MEDS: Potassium Chlor TAB* 20 MEQ TAB.ER PO SCH (22:03)
[2017-11-10] MEDS: Senna TAB PO SCH (22:04)
[2017-11-10] MEDS: Docusate CAP* 100 MG PO SCH (22:04)
[2017-11-10] MEDS: oxyCODONE SR TAB(*) 40 MG TAB.SR PO SCH (22:04)
[2017-11-10] MEDS: MAGNESIUM GLUCONATE 500 MG PO SCH (22:09)
[2017-11-10] MEDS: Magnesium Hydroxide LIQ* 30 ML UDC PO SCH (22:12)
[2017-11-10] MEDS: ceFAZolin 1 GM in Dextrose (*) 1 GM/50 ML BAG IVPB SCH (22:14)
[2017-11-10] MEDS: Mometasone/Formoter 200/5 MDI INH SCH (22:27)
[2017-11-10] MEDS: Morphine INJ* 2 MG/ML 1 ML CARPUJECT IV PRN (22:34)
[2017-11-10 22:57] LABS: Hematocrit 32 % (35-47); Hemoglobin 10.4 g/dl (12.0-16.0)
[2017-11-10] MEDS: oxyCODONE/Acetamin 5/325 MG* TAB PO PRN (23:18)
[2017-11-10] MEDS: Methocarbamol TAB* 500 MG PO PRN (23:25)
[2017-11-11] MEDS: Morphine INJ* 2 MG/ML 1 ML CARPUJECT IV PRN (02:32)
--- NOTE | 2017-11-11 02:55 | OP ---
ADDENDUM NOW INCLUDED ON THIS REPORT CC: Grisel Medellin MD * DATE OF OPERATION: 11/10/17 - ROOM #339 DATE OF : 33 SURGICAL CARE: Right knee. SURGEONS:Román Wynn MD and Ana Berger MD ASSISTANTS: ERICA Bowden ANESTHESIOLOGIST: Dr. Stanislaw Mustafa. ANESTHESIA: Endotracheal tube, general. PRE-OP DIAGNOSIS: Status post infected right total knee replacement and revision right total knee replacement. POST-OP DIAGNOSIS: Same OPERATIVE PROCEDURE: Right knee removal of cement spacer and revision to Depuy total knee with stems and augments, rotating platform type. DRAINS: Two drains, right knee at the end of the case. ESTIMATED BLOOD LOSS: 250 mL. REPLACEMENT: 1900 mL of crystalloid fluids. CONDITION: Stable to the recovery room. OPERATIVE INDICATION: The total knee replacement had been removed in August of 2017 for Strep infection. The patient received 2 months of intravenous ceftriaxone and latest aspiration of this knee and culture was no growth. The aspiration was done on 10/25/17. The C-reactive protein has improved to 14. DESCRIPTION OF PROCEDURE: The knee was revised with a DePuy Sigma revision knee system, a rotating platform knee, the femoral component size 4 with a 75 x 16 mm stem. The tibial tray rotating platform size 3 with a 75 x 14 mm stem and a porous metaphyseal sleeve. The patient was brought to the operating room, placed on the operating room table in a supine position. The right leg had been checked in the holding area and the dorsalis pedis pulse was noted to be 2+. The posterior tibial pulse was noted to be present by Doppler and the popliteal pulse on the right side was noted to be 2+. The right thigh, knee, leg, ankle, and foot was given a preliminary chlorhexidine prep in the holding area. The right knee was marked and confirmed. In the operating room, Dr. Mustafa induced a general anesthetic. An endotracheal tube was inserted. The Fernández catheter which has been indwelling was drained. The right lower extremity was wrapped with a proximal thigh tourniquet and the right leg was given a preliminary chlorhexidine prep and then prepped and draped free in the usual fashion for arthroplasty of the knee. After prepping, draping, and sealing off we did our [place] protocol time out confirming Zaida Duke and a plan for right total knee replacement. We all agreed and we proceeded. The right knee was approached through the previous skin incision extending it proximally and distally by an inch. The skin and subcutaneous tissues were divided down to the deep fascia. The deep fascia was elevated medially somewhat and elevated somewhat over the lateral patella and patellar tendon for knee exposure. The knee was then entered medial parapatellar and there was some blood tinged fluid as we entered the joint space. A culture was done. The anterior medial soft tissues on the tibia were divided down to the bone and the medial side was elevated subperiosteally going around to the deep MCL and then to the posterior medial corner of the knee. The spacer block was exposed without any difficulty. The quad mechanism was divided at the junction of the rectus femoris and the vastus medialis staying as close to the vastus medialis muscle as possible and then a turn down was done 4 cm proximal to the patella going across the patellar tendon laterally to allow retraction of the patellar laterally. The knee had granulation tissues and the knee at first was flexing just 20 degrees and then as further exposure was obtained, the knee could be flexed to 40 to 50 degrees and the spacer block was removed without difficulty. The patellar, femoral, and tibial bony surfaces and defects were cleaned with currettes down to good bleeding bone. The exposure went posteriorly on the tibia and the posterior femur. The tibia was prepared first. The canal finder was utilized. Reaming of the tibia was done 11 through 14 and at 15 the fit was tight and a 14 was chosen.. Broaching was done for a metaphyseal porous sleeve up to 45. The tibia was then recut and was ready for revision tibial surface size 3, a 45 metaphyseal porous sleeve and stem. The femur was then prepared for revision. The canal finder was used. As on the tibia the reaming was done by hand up to 17 and the 16 was chosen. The distal femur required a 4-mm block laterally and an 8-mm block medially and the bone was recut accordingly. The intracondylar box cut was made with careful attention to rotation. A trial reduction was then done with all of the components noted showing good knee alignment, stable ligaments in extension, and stable ligaments in 90 degrees of flexion. The patellar was exposed. It was cut peripherally circumferentially a few millimeters.. A 35 oval patella was chosen , 3 drill holes were made, these were undercut with small currette. The knee was then cleaned extensively with pulsed saline irrigation including the tibial canal, the femoral canal, all around the exposed tibia and femur and the patella. All bony surfaces to receive cement were dried. Simplex tobramycin impregnated cement was used.The final components were assembled and the size 3 rotating tibial tray platform with the 45 mm porous metaphyseal sleeve and the 75 x 14 stem was carefully cemented into position at the proximal tibial metaphysis and then the sleeve was impacted in the metaphyseal bone as well as the distal stem. Care was taken not to get cement into the metaphyseal porous sleeve interface with bone. The femur was cemented in the same manner, a cementing of the metaphyseal femoral bone and articular surfaces that have been recut and avoiding bone cement further up to shaft and along the stem. Each component was impacted. Excess cement was removed. The tourniquet was deflated. Careful hemostasis was done during closrure. Further saline irrigation was done during clusure. The quad turndown was repaired with figure 8 number one vicryl. The closure was completed on the quadriceps tendon, repairing the vastus medialis tendon with interrupted #1 poly Vicryl sutures all the way down to the distal incision. The knee was irrigated several times during closure with saline. After the joint was closed, the superficial subcutaneous was closed carefully with interrupted 3-0 Vicryl sutures, and then christina on the skin. Two drains were brought out through the superolateral suprapatellar pouch. The knee was then washed and dried. The surgery and the drains sites were covered with Betadine soaked Release, followed by sterile gauze and sterile Webril. Then a cryotherapy cuff, ABD pads, and a 6-inch Asad bandage loosely applied. The dorsalis pedis pulse was 2+ at the end of the case. The skin color was all good. The dressing was completed. The knee immobilizer was applied. The patient was then returned to the recovery room in stable and satisfactory condition, having tolerated the procedure very well. The procedure was well tolerated and the patient was returned to recovery in good stable condition. The right DP pulse was 2 plus at procedures end. This surgery required the care of two surgeons, Dr. Wynn and Dr. Berger, for the care of the skin, subcutaneous tissues, tendons, bone, joint, the bone preparation for revision, the assembly of the revision components, cementing and closure.The combined knowledge and expertise were essential. Copy to Dr. Clinton Medellin. [id number]/[facility] #: [id number] [facility] [id number]/[facility] #: [id number] FUNMILAYO
[2017-11-11] MEDS: ceFAZolin 1 GM in Dextrose (*) 1 GM/50 ML BAG IVPB SCH ×2 (05:10→14:04)
[2017-11-11] MEDS: oxyCODONE/Acetamin 5/325 MG* TAB PO PRN ×5 (05:10→22:18)
--- NOTE | 2017-11-11 05:10 | OP ---
CC: Grisel Medellin MD CONTINUATION OF AN OPERATIVE REPORT: DATE OF SURGERY: 11/10/17. DESCRIPTION OF PROCEDURE: The closure was completed on the quadriceps tendon, repaired to the vastus medialis tendon with interrupted #1 poly Vicryl sutures all the way down to the distal incision. The knee was irrigated several times during closure with saline. After the joint was closed, the superficial subcutaneous was closed carefully with interrupted 3-0 Vicryl sutures, and then christina on the skin. Two drains were brought out through the superolateral suprapatellar pouch. The knee was then washed and dried. The surgery and the drains sites were covered with Betadine soaked Release, followed by sterile gauze and sterile Webril. Then a cryotherapy cuff, ABD pads, and a 6-inch Asad bandage loosely applied. The dorsalis pedis pulse was 2+ at the end of the case. The skin color was all good. The dressing was completed. The knee immobilizer was applied. The patient was then returned to the recovery room in stable and satisfactory condition, having tolerated the procedure very well. [id number]/[facility] #: [id number] [facility]
[2017-11-11] MEDS: Levothyroxine TAB* 100 MCG TAB PO SCH (05:12)
[2017-11-11 05:28] LABS: Hematocrit 28 % (35-47); Mean Platelet Volume 7.3 um3 (7.4-10.4); Platelet Count 277 10^3/ul (150-450)
[2017-11-11 05:33] LABS: INR 1.02 (0.77-1.02)
[2017-11-11 05:42] LABS: EGFR Non-African American 66.6 (>60)
[2017-11-11] MEDS: Methocarbamol TAB* 500 MG PO PRN ×4 (05:58→23:35)
[2017-11-11] MEDS: Mometasone/Formoter 200/5 MDI INH SCH ×2 (07:51→19:21)
[2017-11-11] MEDS ORDERED: Tiotropium Respimt 2.5 mcg(NF) 1 PUFF MDI INH SCH (08:00)
[2017-11-11] MEDS ORDERED: ESTROPIPATE 0.75 MG PO SCH (08:00)
[2017-11-11] MEDS ORDERED: Docusate CAP* 100 MG PO SCH (08:00)
[2017-11-11] MEDS: MAGNESIUM GLUCONATE 500 MG PO SCH ×2 (08:30→21:13)
[2017-11-11] MEDS: Magnesium Hydroxide LIQ* 30 ML UDC PO SCH ×2 (08:30→21:07)
[2017-11-11] MEDS: Senna TAB PO SCH ×2 (08:51→21:12)
[2017-11-11] MEDS: oxyCODONE SR TAB(*) 40 MG TAB.SR PO SCH ×2 (08:51→21:10)
[2017-11-11] MEDS: Fluticasone NASAL SPRAY 50MCG* 16 gm SPRAY BTL BOTH NARES SCH (08:51)
[2017-11-11] MEDS: Triamterene/HCTZ 37.5-25 MG* CAP PO SCH (08:52)
[2017-11-11] MEDS: Docusate CAP* 100 MG PO SCH ×3 (08:52→21:24)
[2017-11-11] MEDS: Potassium Chlor TAB* 20 MEQ TAB.ER PO SCH ×4 (08:52→21:11)
[2017-11-11] MEDS: Cetirizine* 10 MG TAB PO SCH (08:52)
[2017-11-11] MEDS: Sertraline* 50 MG TAB PO SCH ×2 (08:53→21:13)
[2017-11-11] MEDS: Morphine VIAL* 4 MG/ML VIAL (1 ml vial) IV PRN (08:53)
--- NOTE | 2017-11-11 09:57 | PN ---
Progress Note - Progress Note Date of Service: 11/11/17 Note: She feels the pain right knee is being handled satisfactorily. Has rested some. Post Op X-ray right knee is satisfactory. The preop ESR down to 62 from 111 in August and the CRP down to 14 from 109. Todays Hct is 28%. K is 4.5. Awake, alert, cooperative and breathing easily. In 3385, Out 1125. Temp 98.5. Right leg dressing is dry. Right DP is 2 plus. Right ankle active up and down movements. Sensory intact right foot. Drains out per ERICA Dubois. Imp: Stable and doing well so far. Acute blood loss anemia, will follow. Coumadin is re started and will give low dose of lovenox today. Today I discussed with her that the right knee may end up with some stiffness ( may not bend very far). Plans: She has been up with walker. Will keep right knee straight for 6 weeks with the immobilizer. Weight bearing as tolerated right foot with the walker.
[2017-11-11] MEDS ORDERED: Artificial Tears* 15 ML BTL BOTH EYES SCH (10:00)
[2017-11-11] MEDS ORDERED: Spiriva Inhaler DEVICE* 1 EACH DEVICE INH ONE (10:30)
[2017-11-11] MEDS: Dicyclomine CAP* 10 MG PO SCH ×3 (11:34→21:11)
[2017-11-11] MEDS: Tiotropium CAP.INH* CAP.INH/18 MCG (USE ORDER SET !) INH SCH (11:35)
[2017-11-11] MEDS ORDERED: Enoxaparin(*) 30 MG/0.3 ML SYR SUBCUT ONE (12:00)
--- NOTE | 2017-11-11 13:38 | PN ---
Progress Note - Progress Note Date of Service: 11/11/17 Note: Drain x2 removed from right knee with tips intact and without difficulty, patient tolerated procedure well.
[2017-11-11] MEDS: Prenatal Vitamin TAB PO SCH (14:04)
[2017-11-11] MEDS: Montelukast Sodium TAB* 10 MG PO SCH (21:11)
[2017-11-11] MEDS: EYE BOTH EYES SCH (21:17)
[2017-11-11] MEDS: [UNRECOGNIZED DRUG - OTHER] BOTH EYES SCH (21:17)
[2017-11-11] MEDS: Ondansetron TAB* 4 MG PO PRN (22:19)
[2017-11-12] MEDS: oxyCODONE/Acetamin 5/325 MG* TAB PO PRN ×2 (03:36→08:13)
[2017-11-12 05:40] LABS: Hematocrit 23 % (35-47); Hemoglobin 7.9 g/dl (12.0-16.0); Mean Platelet Volume 7.5 um3 (7.4-10.4); Platelet Count 237 10^3/ul (150-450)
[2017-11-12 05:45] LABS: INR 1.2 (0.77-1.02)
[2017-11-12] MEDS: Levothyroxine TAB* 100 MCG TAB PO SCH (05:47)
[2017-11-12] MEDS: Methocarbamol TAB* 500 MG PO PRN (05:50)
[2017-11-12] MEDS: Ondansetron TAB* 4 MG PO PRN (08:12)
[2017-11-12] MEDS: Docusate CAP* 100 MG PO SCH (08:13)
[2017-11-12] MEDS: Senna TAB PO SCH (08:13)
[2017-11-12] MEDS: Triamterene/HCTZ 37.5-25 MG* CAP PO SCH (08:13)
[2017-11-12] MEDS: Sertraline* 50 MG TAB PO SCH (08:14)
[2017-11-12] MEDS: oxyCODONE SR TAB(*) 40 MG TAB.SR PO SCH (08:14)
[2017-11-12] MEDS: Cetirizine* 10 MG TAB PO SCH (08:14)
[2017-11-12] MEDS: Fluticasone NASAL SPRAY 50MCG* 16 gm SPRAY BTL BOTH NARES SCH (08:15)
[2017-11-12] MEDS: MAGNESIUM GLUCONATE 500 MG PO SCH (08:17)
[2017-11-12] MEDS: Magnesium Hydroxide LIQ* 30 ML UDC PO SCH (08:18)
[2017-11-12] MEDS: Mometasone/Formoter 200/5 MDI INH SCH (08:19)
[2017-11-12] MEDS: Dicyclomine CAP* 10 MG PO SCH (08:19)
[2017-11-12] MEDS: Prenatal Vitamin TAB PO SCH (08:20)
[2017-11-12] MEDS: [UNRECOGNIZED DRUG - OTHER] BOTH EYES SCH (08:21)
[2017-11-12] MEDS: EYE BOTH EYES SCH (08:21)
[2017-11-12] MEDS: Tiotropium CAP.INH* CAP.INH/18 MCG (USE ORDER SET !) INH SCH (08:24)
[2017-11-12] MEDS: Potassium Chlor TAB* 20 MEQ TAB.ER PO SCH (08:26)
[2017-11-12] MEDS: Morphine VIAL* 4 MG/ML VIAL (1 ml vial) IV PRN (09:14)
--- NOTE | 2017-11-12 09:17 | PN ---
Progress Note - Progress Note Date of Service: 11/12/17 Note: More pain right knee today. In 361, Out 1550. H/H 7.9/23%. INR is 1.2. Micro: No new reports yet today, no growth yesterday. She is weak, tired and very cold with tachycardia. Awake, responsive and cooperative, but distressed with pain. Dressing changed this AM by MRosemarie and skin edges look satisfactory. Right foot some swelling. Right foot warm and active right ankle movements up and down. Imp: Stable. Will transfuse one unit today and she can go to the [facility] Plans: Transfuse 1 unit today. Continue Coumadin Continue Lovenox 40 mg SQ until INR is equal to or greater than 1.7 Continue knee immobilizer for 6 weeks, keep knee straight. Weight bearing as tolerated right.
[2017-11-12] MEDS ORDERED: Warfarin TAB(*) 6 MG PO ONE (11:00)
[2017-11-12 11:02] VITALS: BP 113/42
[2017-11-12] MEDS ORDERED: Enoxaparin(*) 40 MG/0.4 ML SYR SUBCUT SCH (12:00)
[2017-11-13] MEDS ORDERED: Warfarin TAB(*) 6 MG PO SCH (17:00)
--- NOTE | 2017-11-16 04:31 | DS ---
DISCHARGE SUMMARY: DATE OF ADMISSION: 11/10/17 DATE OF DISCHARGE: 11/12/17 ATTENDING PHYSICIAN: Dr. Wynn.* (DICTATED BY ERICA JAMISON) CHIEF COMPLAINT: 1. Status post infected total knee arthroplasty, status post spacer. 2. Right leg deep vein thrombosis. 3. Ventral hernia. 4. Chronic back pain. 5. Hypothyroidism. 6. Asthma. 7. Hypertension. 8. Anxiety and depression. DISCHARGE DIAGNOSIS: Status post right infected total knee replacement with revision of right total knee replacement. PLANNED PROCEDURE: 1. Right knee removal of cement pacer. 2. Revision of deputy total knee with stems and augment, rotating platform type. CONSULTATIONS: 1. Physical Therapy. 2. Occupational Therapy. 3. Medicine. 4. PMRU. BRIEF HISTORY: Ms. Duek is a very pleasant 82-year-old female who had an infection of her right knee replacement, which was removed in August 2017 for a Strep infection. She underwent a 2-month intravenous antibiotics until cultures were negative. She had a spacer placed in August. She has elected to undergo a right total knee replacement with removal of spacer by Dr. Wynn. HOSPITAL COURSE: Ms. Duke was admitted to [facility] on 11/10/17, where she underwent an uncomplicated right total knee removal of cement pacer and revision of a right total knee with stems and augment by Dr. Wynn assisted by Dr. Berger. She recovered in the surgical short stay unit. Her Fernández was removed on postoperative day 2 and she was voiding on her own without difficulty. She advanced to regular diet and her pain has settled with p.o. Percocet. She was discharged on her home medications. Her vital signs showed some tachycardia on 11/12/17 with associated fatigue and overall feeling cold with her labs showing a decreased H and H of 7.9 and 23. The patient was transfused 1 unit without difficulty. She was able to bear weight as tolerated on the right lower extremity and advanced appropriately with physical therapy and occupational therapy. Her DVT prophylaxis was managed with Lovenox and Coumadin. At postoperative day 2, she was orthopedically and medically stable to be discharged to a [facility] for further rehabilitation. PHYSICAL EXAMINATION: General: Well-appearing, in no acute distress, alert and oriented, appears stated age. Vital Signs: Temperature 98.1, pulse rate 81 , oxygen saturation 100%, blood pressure 113/42, respiratory rate 18. Examination of the right lower extremity demonstrated surgical incision intact with christina without erythema or drainage. Drain had been removed. Mild ecchymosis seen throughout the right lower extremity, negative Homans sign, positive dorsiflexion and plantar flexion. Positive sensation to light touch with hypersensitivity around the incision site. LABORATORY DATA ON DATE OF DISCHARGE: H and H of 7.9 and 23. DISCHARGE MEDICATIONS: 1. 5 mg 1 tablet p.o. q.h.s. 2. Magnesium gluconate 500 mg p.o. b.i.d. 3. Oxycodone 5 mg tablets q.4 hours p.r.n. for pain. 4. Levothyroxine 100 mcg p.o. daily. 5. Estropipate 0.75 mg p.o. daily. 6. Flonase two sprays both nares daily. 7. Sertraline 50 mg p.o. b.i.d. 8. Oxycodone SR 40 mg p.o. b.i.d. 9. Potassium chloride 20 mEq p.o. q.i.d. 10. Robaxin 100 mg p.o. q.i.d. p.r.n. 11. Ventolin HFA inhaler one puff inhalation q.4 hours p.r.n. 12. Zofran 4 mg p.o. t.i.d. p.r.n. 13. Xyzal 5 mg p.o. daily. 14. Coumadin varying dosing due to INR daily. 15. Senokot 2 tablets p.o. b.i.d. 16. Dyazide one capsule p.o. daily. 17. Colace 100 mg p.o. daily. 18. Spiriva 2 puffs inhalation daily. 19. Multivitamin one tablet p.o. daily. 20. Dulera 200/5 MDI 2 puffs inhaled b.i.d. 21. Robitussin 10 mg p.o. q.4 hours p.r.n. 22. Tylenol 650 mg p.o. q.4 hours p.r.n. 23. Milk of magnesia 30 mg p.o. p.r.n. 24. Glycerin adult suppository one suppository p.r. p.r.n. 25. Diclofenac 1% gel one application topically p.r.n. 26. Lovenox 30 mg subcu q.p.m. CONDITION ON DISCHARGE: Stable. DISCHARGE INSTRUCTIONS: Ms. Duke is a very pleasant 82-year-old female, status post removal of spacer with total knee arthroplasty performed on 11/10/[address] Wynn. She is medically and orthopedically stable for transfer to [facility] for further rehabilitation. Her vital signs are stable. She is receiving 1 unit of blood upon transfer with repeat H and H. She is taking Lovenox and Coumadin for DVT prophylaxis until therapeutic above 1.8 on Coumadin. At that time, she will stop the Lovenox. She will continue with physical therapy. She will continue with her current pain regimen as well as take her current bowel regimen for treatment of constipation. She will follow up with Dr. Wynn in approximately two weeks. She was instructed to go into the ER should she develop chest pain or shortness of breath. If she develops fever, increasing pain and redness, she is to call the office immediately. ERICA JAMISON [id number]/[facility] #: [id number] FUNMILAYO
== END 2017-11-12 11:16 | DRG 470 ==
LOC: AA 12:18 → SSU 18:00
PROVIDERS: ADMIT Orthopaedic Surgery; ATTEND Orthopaedic Surgery
PROC: 0SRC0J9 Replacement of Right Knee Joint with Synthetic Substitute, Cemented, Open Approach (ICD-10-PCS; principal; 2017-11-10 13:00)
PROC: 30233N1 Transfusion of Nonautologous Red Blood Cells into Peripheral Vein, Percutaneous Approach (ICD-10-PCS; 2017-11-12)
DX: Z47.33 Aftercare following explantation of knee joint prosthesis (principal); I82.501 Chronic embolism and thrombosis of unspecified deep veins of right lower extremity; I12.9 Hypertensive chronic kidney disease with stage 1 through stage 4 chronic kidney disease, or unspecified chronic kidney disease; N18.9 Chronic kidney disease, unspecified; Z96.653 Presence of artificial knee joint, bilateral; G89.29 Other chronic pain; M54.9 Dorsalgia, unspecified; E03.9 Hypothyroidism, unspecified; J45.909 Unspecified asthma, uncomplicated; K21.9 Gastro-esophageal reflux disease without esophagitis; I27.20 Pulmonary hypertension, unspecified; K43.9 Ventral hernia without obstruction or gangrene; F41.9 Anxiety disorder, unspecified; F32.9 Major depressive disorder, single episode, unspecified; Z90.710 Acquired absence of both cervix and uterus; Z88.0 Allergy status to penicillin; Y92.009 Unspecified place in unspecified non-institutional (private) residence as the place of occurrence of the external cause; Z88.2 Allergy status to sulfonamides; Z88.1 Allergy status to other antibiotic agents; Z91.041 Radiographic dye allergy status; Z86.14 Personal history of Methicillin resistant Staphylococcus aureus infection; Z79.02 Long term (current) use of antithrombotics/antiplatelets; J00 Acute nasopharyngitis [common cold]; R00.0 Tachycardia, unspecified; D64.9 Anemia, unspecified; E83.42 Hypomagnesemia
CPT/HCPCS: 36415; 80048; 84443; 85014; 85018; 85025; 85049; 85610; 85652; 86140; 86850; 86900; 86901; 86922; 87070; 87073; 87205; 88304; 93970; 94640; A9270-GY; C1776; G8978-GP-CL; G8979-GP-CI; G8987-GO-CL; G8988-GO-CI; J0360; J0690; J1100; J1170; J1650; J2001; J2250; J2270; J2405; J2704; J2795; J3010; P9040

== ENCOUNTER 2017-11-12 09:17 | Inpatient (IN) | payer MEDICARE ==
[2017-11-12] MEDS ORDERED: Magnesium Hydroxide LIQ* 30 ML UDC PO PRN (11:56)
[2017-11-12] MEDS ORDERED: Senna TAB PO PRN (11:56)
[2017-11-12] MEDS ORDERED: Bisacodyl SUPP* 10 MG SUPP PR PRN (11:56)
[2017-11-12] MEDS ORDERED: oxyCODONE TAB* 5 MG TAB PO PRN (12:11)
[2017-11-12] MEDS: Enoxaparin(*) 40 MG/0.4 ML SYR SUBCUT SCH (13:29)
[2017-11-12] MEDS: Potassium Chlor TAB* 20 MEQ TAB.ER PO SCH ×3 (13:29→21:10)
[2017-11-12] MEDS: Acetaminophen TAB* 325 MG PO PRN ×2 (13:30→21:16)
[2017-11-12] MEDS: oxyCODONE TAB* 5 MG TAB PO PRN ×3 (13:30→21:53)
[2017-11-12] MEDS: Methocarbamol TAB* 500 MG PO PRN ×2 (16:22→22:37)
[2017-11-12] MEDS: Dicyclomine CAP* 10 MG PO SCH (16:47)
[2017-11-12] MEDS: Docusate CAP* 100 MG PO SCH (21:09)
[2017-11-12] MEDS: Montelukast Sodium TAB* 10 MG PO SCH (21:09)
[2017-11-12] MEDS: Sertraline* 50 MG TAB PO SCH (21:09)
[2017-11-12] MEDS: oxyCODONE SR TAB(*) 40 MG TAB.SR PO SCH (21:09)
[2017-11-12] MEDS: Mometasone/Formoter 200/5 MDI INH SCH (21:12)
[2017-11-12] MEDS: MAGNESIUM GLUCONATE 500 MG PO SCH (21:13)
--- NOTE | 2017-11-12 22:02 | HP ---
ADMISSION HISTORY AND PHYSICAL: DATE OF ADMISSION: 11/12/17 REASON FOR ADMISSION: Right knee replacement. HISTORY OF ILLNESS: Zaida Duke is an 82-year-old white female. She had a right total knee replacement done in 2013 and left total replacement done in 2014. She does have a history of having a DVT in the past. The right knee replacement was infected in 2016. She had complete removal of the prosthesis and the cement in August 2017. She was sent to the [facility] in September. She did receive 2 months of IV antibiotics. The patient was brought back to [facility] on 11/10/17 for reimplantation of prosthesis. She was taken to the operating room that day. She had a revision right total knee with removal of the spacer block. Postoperatively, her course was benign. She was started on Coumadin postoperatively. She has been on Lovenox as well. The patient was felt to have physical therapy and occupational therapy needs. She is in a knee immobilizer and not allowed to bend the knee. She is now being admitted for inpatient rehab so she might return to independent living. PAST MEDICAL HISTORY: Significant for the aforementioned bilateral total knee replacements. She had a right leg DVT. She has chronic ventral hernia, chronic back pain, and sees a pain clinic for that. She has hypothyroidism, asthma, and hypertension as well as anxiety and depression. She had a hysterectomy as well. CURRENT MEDICATIONS: Include: 1. Xyzal. 2. Spiriva. 3. Bentyl. 4. Lovenox. 5. Flonase. 6. Synthroid. 7. Robaxin. 8. Dulera. 9. Singulair. 10. Oxycodone. 11. OxyContin. 12. Potassium. 13. Zoloft. 14. Dyazide. 15. Coumadin. ALLERGIES: The patient has allergies to PENICILLIN. SOCIAL HISTORY: She lives in [place] in [place]. She has a son living with her. She is a nonsmoker, nondrinker. PHYSICAL EXAMINATION VITAL SIGNS: The patient's temperature is 98.5, blood pressure is 116/51, pulse 90, respirations 16. HEENT: Extraocular movements are intact. Tongue is midline. NECK: Supple. LUNGS: Sound clear to auscultation bilaterally. HEART: Sounds are regular. S1 and S2 are audible. ABDOMEN: Soft and nontender. EXTREMITIES: Her right knee is in a knee immobilizer, wrapped. She has edema in both feet. Her peripheral pulses are intact. NEUROLOGIC: She is awake, alert, oriented. Muscle strength is about 5/5 except the right leg, which is 3/5 secondary to pain and prolonged non-use. FUNCTIONAL EXAM: The patient transfers with max assist. ASSESSMENT: Revision, right total knee replacement after an infected right knee. PLAN: Our plan is to integrate her into a comprehensive and therapeutic rehab program with the following goals: 1. Physical Therapy will work with the patient. They are going to work on functional transfer training and ambulation training with a walker. 2. Occupational Therapy will see the patient, work on her activities of daily living including toileting and toilet transfers. 3. Continue Coumadin and Lovenox for DVT prophylaxis. We will stop her Lovenox when her Coumadin approaches therapeutic range. 4. The patient had acute blood loss anemia and had to be transfused on the acute medical floor. We will follow her hemoglobin and hematocrit. 5. For her asthma, we are going to continue her Singulair as well as her Dulera and Spiriva. 6. Continue Zoloft for depression. 7. For chronic pain, we will continue her OxyContin. 8. Adequate analgesia for her knee surgery. 9. For her hypothyroidism, continue Synthroid. 10. Family training as appropriate. 11. Home with appropriate services. ESTIMATED LENGTH OF STAY: 2 weeks. [id number]/[facility] #: [id number] FUNMILAYO
[2017-11-13] MEDS: oxyCODONE TAB* 5 MG TAB PO PRN ×4 (02:40→23:21)
[2017-11-13 05:52] LABS: ABS Basophils 0.1 10^3/ul (0-0.2); ABS Eosinophils 0.4 10^3/ul (0-0.6); ABS Lymphocytes 2.1 10^3/ul (1.0-4.8); ABS Monocytes 0.7 10^3/ul (0-0.8); ABS Neutrophils 5.6 10^3/ul (1.5-7.7); ABS Nucleated RBC 0 10^3/ul; Eosinophil % 4.3 % (0-6); Hematocrit 28 % (35-47); Hemoglobin 9.4 g/dl (12.0-16.0); Lymphocyte % 23.6 % (25-47); Mean Corpuscular HGB Conc 34 g/dl (31-36); Mean Corpuscular Hemoglobin 29 pg (27-31); Mean Corpuscular Volume 86 fL (80-97); Mean Platelet Volume 7.6 um3 (7.4-10.4); Nucleated Red Blood Cells % 0; Platelet Count 270 10^3/ul (150-450); Red Blood Count 3.27 10^6/ul (4.0-5.4); Red Cell Distribution Width 16 % (10.5-15); White Blood Count 8.9 10^3/ul (3.5-10.8)
[2017-11-13 06:00] LABS: INR 1.17 (0.77-1.02)
[2017-11-13] MEDS: Levothyroxine TAB* 100 MCG TAB PO SCH (06:01)
[2017-11-13] MEDS: Acetaminophen TAB* 325 MG PO PRN (06:01)
[2017-11-13] MEDS ORDERED: Ondansetron ODT TAB* 4 MG ONE (07:39)
[2017-11-13] MEDS: Mometasone/Formoter 200/5 MDI INH SCH ×2 (08:17→19:58)
[2017-11-13] MEDS: Tiotropium CAP.INH* CAP.INH/18 MCG (USE ORDER SET !) INH SCH (08:18)
[2017-11-13] MEDS: MAGNESIUM GLUCONATE 500 MG PO SCH ×3 (08:59→21:49)
[2017-11-13] MEDS: oxyCODONE SR TAB(*) 40 MG TAB.SR PO SCH ×2 (09:00→21:44)
[2017-11-13] MEDS: Dicyclomine CAP* 10 MG PO SCH ×3 (09:00→16:27)
[2017-11-13] MEDS: Docusate CAP* 100 MG PO SCH ×2 (09:00→21:48)
[2017-11-13] MEDS ORDERED: Spiriva Inhaler DEVICE* 1 EACH DEVICE INH ONE (09:00)
[2017-11-13] MEDS: Sertraline* 50 MG TAB PO SCH ×2 (09:01→21:48)
[2017-11-13] MEDS: Triamterene/HCTZ 37.5-25 MG* CAP PO SCH (09:01)
[2017-11-13] MEDS: Cetirizine* 10 MG TAB PO SCH (09:01)
[2017-11-13] MEDS: Potassium Chlor TAB* 20 MEQ TAB.ER PO SCH ×4 (09:01→21:48)
[2017-11-13] MEDS: FLUTICASONE 50 MCG BOTH NARES SCH (09:02)
[2017-11-13] MEDS: Enoxaparin(*) 40 MG/0.4 ML SYR SUBCUT SCH (12:01)
[2017-11-13] MEDS: Methocarbamol TAB* 500 MG PO PRN (12:08)
[2017-11-13] MEDS ORDERED: Albuterol HFA INHALER* 8 gm MDI INH PRN (15:32)
--- NOTE | 2017-11-13 15:45 | PN ---
Progress Note Date of Service: 11/13/17 Note: QUENTIN STEWARD was visited. Therapy notes read and reviewed. She wants her Voltaren gel for her left shoulder. Her INR is low, will continue 6 mg. Current Medications: Active Medications Generic Name Dose Route Start Last Admin Trade Name Freq PRN Reason Stop Dose Admin Acetaminophen 650 mg 11/12/17 11:56 11/13/17 06:01 Tylenol Tab* PO 650 mg Q6H PRN Administration FEVER/PAIN Albuterol 2 puff 11/13/17 15:32 Ventolin Hfa Inhaler* INH Q6H PRN SOB/WHEEZING Bisacodyl 10 mg 11/12/17 11:56 Dulcolax Supp* [place] DAILY PRN CONSTIPATION Cetirizine HCl 10 mg 11/13/17 09:00 11/13/17 09:01 Zyrtec* PO 10 mg DAILY ZACH Administration Diclofenac Sodium 1 applic 11/13/17 15:33 Voltaren 1% Gel (Nf) TOPICAL Q6H PRN PAIN Protocol Dicyclomine HCl 10 mg 11/12/17 16:30 11/13/17 11:59 Bentyl Cap* PO 10 mg AC ZACH Administration Docusate Sodium 100 mg 11/12/17 21:00 11/13/17 09:00 Colace Cap* PO 100 mg BID ZACH Administration Enoxaparin Sodium 40 mg 11/12/17 12:00 11/13/17 12:01 Lovenox(*) SUBCUT 40 mg Q24H ZACH Administration Fluticasone Propionate 2 spray 11/13/17 09:00 11/13/17 09:02 Flonase Nasal [place] 50mcg* BOTH NARES 2 spray DAILY ZACH Administration Levothyroxine Sodium 100 mcg 11/13/17 06:00 11/13/17 06:01 Synthroid Tab* PO 100 mcg DAILY@0600 ZACH Administration Magnesium Hydroxide 30 ml 11/12/17 11:56 Milk Of Magnesia Liq* PO Q6H PRN CONSTIPATION Methocarbamol 1,000 mg 11/12/17 15:43 11/13/17 12:08 Robaxin Tab* PO 1,000 mg Q6H PRN Administration SPASMS Mometasone Furoate/Formoterol Fumar 2 puff 11/12/17 21:00 11/13/17 08:17 Dulera 200/5 Mdi* INH 2 puff BID ZACH Administration Montelukast Sodium 10 mg 11/12/17 21:00 11/12/17 21:09 Singulair Tab* PO 10 mg BEDTIME ZACH Administration Pto: Magnesium 500 mg 11/13/17 17:00 Gluconate 500 Mg PO QID ZACH Ondansetron HCl 4 mg 11/13/17 07:46 Zofran Odt Tab* PO Q6H PRN NAUSEA Oxycodone HCl 40 mg 11/12/17 21:00 11/13/17 09:00 Oxycontin(*) PO 40 mg Q12H ZACH Administration Oxycodone HCl 10 mg 11/12/17 12:11 Roxycodone Tab* PO Q4H PRN PAIN - MODERATE TO SEVERE Oxycodone HCl 15 mg 11/12/17 12:13 11/13/17 10:38 Roxycodone Tab* PO 15 mg Q4H PRN Administration PAIN - SEVERE Pharmacy Profile Note 1 note 11/14/17 17:00 Coumadin Daily Reminder* FOLLOW UP 1700 [facility] Potassium Chloride 20 meq 11/12/17 13:00 11/13/17 12:01 Klor Con Er Tab* PO 20 meq QID ZACH Administration Senna 2 tab 11/12/17 11:56 11/12/17 21:16 Senokot Tab* PO 2 tab BEDTIME PRN Administration CONSTIPATION Sertraline HCl 50 mg 11/12/17 21:00 11/13/17 09:01 Zoloft* PO 50 mg Q12H ZACH Administration Tiotropium [place] 1 cap 11/13/17 09:00 11/13/17 08:18 Spiriva Cap.Inh* INH 1 inh DAILY ZACH Administration Triamterene/HCTZ 1 cap 11/13/17 09:00 11/13/17 09:01 Dyazide Cap* PO 1 cap DAILY ZACH Administration Warfarin Sodium 6 mg 11/13/17 17:00 Coumadin Tab(*) PO DAILY@1700 [facility] Protocol Vital Signs: Vital Signs Temp Pulse Resp BP Pulse Ox 98.2 F 85 18 156/55 100 11/13/17 05:58 11/13/17 05:58 11/13/17 14:11 11/13/17 05:58 11/13/17 08:00 Lab Results: Laboratory Results - last 24 hr 11/13/17 11/13/17 05:41 05:41 WBC 8.9 RBC 3.27 L Hgb 9.4 L Hct 28 L MCV 86 MCH 29 MCHC 34 RDW 16 H Plt Count 270 MPV 7.6 Neut % (Auto) 63.0 Lymph % (Auto) 23.6 L [place] % (Auto) 8.3 H Eos % (Auto) 4.3 Baso % (Auto) 0.8 Absolute Neuts (auto) 5.6 Absolute Lymphs (auto) 2.1 Absolute Monos (auto) 0.7 Absolute Eos (auto) 0.4 Absolute Basos (auto) 0.1 Absolute Nucleated RBC 0 Nucleated RBC % 0 INR (Anticoag Therapy) 1.17 H Exam: LUNGS: Clear HEART: reg rhythm ABDOMEN: soft EXTREMITIES: right knee in immobilizer Assessment/Plan: 1. Right TKA reimplant: PT/OT. 2. Asthma: Xyzal/Dulera/Albuterol HFA 3. DVT Prophylaxis: Coumadin/Lovenox 4. Analgesia: OxyContin/oxycodone 5. Hypothyroidism: Synthroid 6. Acute Blood loss Anemia: Transfused yesterday. H/H ok 11/13/17 15:43
[2017-11-13] MEDS: PTO: Diclofenac 1% GEL (NF) 100 GM TUBE TOPICAL PRN (16:26)
[2017-11-13] MEDS: Warfarin TAB(*) 6 MG PO SCH (16:29)
[2017-11-13] MEDS: Montelukast Sodium TAB* 10 MG PO SCH (21:48)
[2017-11-14] MEDS: Levothyroxine TAB* 100 MCG TAB PO SCH (05:21)
[2017-11-14] MEDS: oxyCODONE TAB* 5 MG TAB PO PRN ×3 (05:22→23:31)
[2017-11-14 06:22] LABS: INR 1.16 (0.77-1.02)
[2017-11-14] MEDS: oxyCODONE SR TAB(*) 40 MG TAB.SR PO SCH ×2 (07:36→21:09)
[2017-11-14] MEDS: Potassium Chlor TAB* 20 MEQ TAB.ER PO SCH ×4 (07:36→21:08)
[2017-11-14] MEDS: Cetirizine* 10 MG TAB PO SCH (07:36)
[2017-11-14] MEDS: Tiotropium CAP.INH* CAP.INH/18 MCG (USE ORDER SET !) INH SCH (07:37)
[2017-11-14] MEDS: Docusate CAP* 100 MG PO SCH ×2 (07:37→21:08)
[2017-11-14] MEDS: Dicyclomine CAP* 10 MG PO SCH ×3 (07:37→16:20)
[2017-11-14] MEDS: Sertraline* 50 MG TAB PO SCH ×2 (07:37→21:08)
[2017-11-14] MEDS: Mometasone/Formoter 200/5 MDI INH SCH ×2 (07:39→21:08)
[2017-11-14] MEDS: Triamterene/HCTZ 37.5-25 MG* CAP PO SCH (07:39)
[2017-11-14] MEDS: FLUTICASONE 50 MCG BOTH NARES SCH (07:40)
[2017-11-14] MEDS: MAGNESIUM GLUCONATE 500 MG PO SCH ×4 (07:41→21:19)
[2017-11-14] MEDS: PTO: Diclofenac 1% GEL (NF) 100 GM TUBE TOPICAL PRN (10:54)
[2017-11-14] MEDS: Enoxaparin(*) 40 MG/0.4 ML SYR SUBCUT SCH (11:41)
--- NOTE | 2017-11-14 12:48 | PN ---
Progress Note Date of Service: 11/14/17 Note: QUENTIN STEWARD was visited. Nursing notes read and reviewed. She is upset about her sick brother today. Her INR is still low. Continue Coumadin 6 mg, check tomorrow. Current Medications: Active Medications Generic Name Dose Route Start Last Admin Trade Name Freq PRN Reason Stop Dose Admin Acetaminophen 650 mg 11/12/17 11:56 11/13/17 06:01 Tylenol Tab* PO 650 mg Q6H PRN Administration FEVER/PAIN Albuterol 2 puff 11/13/17 15:32 Ventolin Hfa Inhaler* INH Q6H PRN SOB/WHEEZING Bisacodyl 10 mg 11/12/17 11:56 Dulcolax Supp* [place] DAILY PRN CONSTIPATION Cetirizine HCl 10 mg 11/13/17 09:00 11/14/17 07:36 Zyrtec* PO 10 mg DAILY ZACH Administration Diclofenac Sodium 1 applic 11/13/17 15:33 11/14/17 10:54 Voltaren 1% Gel (Nf) TOPICAL 1 admin Q6H PRN Administration PAIN Protocol Dicyclomine HCl 10 mg 11/12/17 16:30 11/14/17 11:40 Bentyl Cap* PO 10 mg AC ZACH Administration Docusate Sodium 100 mg 11/12/17 21:00 11/14/17 07:37 Colace Cap* PO 100 mg BID ZACH Administration Enoxaparin Sodium 40 mg 11/12/17 12:00 11/14/17 11:41 Lovenox(*) SUBCUT 40 mg Q24H ZACH Administration Estropipate 0.75 mg 11/15/17 09:00 Ogen(Nf) PO DAILY ZACH Fluticasone Propionate 2 spray 11/13/17 09:00 11/14/17 07:40 Flonase Nasal [place] 50mcg* BOTH NARES 2 spray DAILY ZACH Administration Levothyroxine Sodium 100 mcg 11/13/17 06:00 11/14/17 05:21 Synthroid Tab* PO 100 mcg DAILY@0600 ZACH Administration Magnesium Hydroxide 30 ml 11/12/17 11:56 Milk Of Magnesia Liq* PO Q6H PRN CONSTIPATION Methocarbamol 1,000 mg 11/12/17 15:43 11/13/17 12:08 Robaxin Tab* PO 1,000 mg Q6H PRN Administration SPASMS Mometasone Furoate/Formoterol Fumar 2 puff 11/12/17 21:00 11/14/17 07:39 Dulera 200/5 Mdi* INH 2 puff BID ZACH Administration Montelukast Sodium 10 mg 11/12/17 21:00 11/13/17 21:48 Singulair Tab* PO 10 mg BEDTIME ZACH Administration Pto: Magnesium 500 mg 11/13/17 17:00 11/14/17 07:41 Gluconate 500 Mg PO 500 mg QID ZACH Administration Ondansetron HCl 4 mg 11/13/17 07:46 Zofran Odt Tab* PO Q6H PRN NAUSEA Oxycodone HCl 40 mg 11/12/17 21:00 11/14/17 07:36 Oxycontin(*) PO 40 mg Q12H ZACH Administration Oxycodone HCl 10 mg 11/12/17 12:11 Roxycodone Tab* PO Q4H PRN PAIN - MODERATE TO SEVERE Oxycodone HCl 15 mg 11/12/17 12:13 11/14/17 05:22 Roxycodone Tab* PO 15 mg Q4H PRN Administration PAIN - SEVERE Pharmacy Profile Note 1 note 11/14/17 17:00 Coumadin Daily Reminder* FOLLOW UP 1700 [facility] Potassium Chloride 20 meq 11/12/17 13:00 11/14/17 07:36 Klor Con Er Tab* PO 20 meq QID ZACH Administration Senna 2 tab 11/12/17 11:56 11/12/17 21:16 Senokot Tab* PO 2 tab BEDTIME PRN Administration CONSTIPATION Sertraline HCl 50 mg 11/12/17 21:00 11/14/17 07:37 Zoloft* PO 50 mg Q12H ZACH Administration Tiotropium [place] 1 cap 11/13/17 09:00 11/14/17 07:37 Spiriva Cap.Inh* INH 1 inh DAILY ZACH Administration Triamterene/HCTZ 1 cap 11/13/17 09:00 11/14/17 07:39 Dyazide Cap* PO 1 cap DAILY ZACH Administration Warfarin Sodium 6 mg 11/13/17 17:00 11/13/17 16:29 Coumadin Tab(*) PO 6 mg DAILY@1700 ZACH Administration Protocol Vital Signs: Vital Signs Temp Pulse Resp BP Pulse Ox 98.4 F 79 16 146/73 100 11/14/17 05:12 11/14/17 05:12 11/14/17 11:40 11/14/17 05:12 11/13/17 23:18 Lab Results: Laboratory Results - last 24 hr 11/14/17 06:07 INR (Anticoag Therapy) 1.16 H Exam: LUNGS: Clear HEART: reg rhythm ABDOMEN: soft EXTREMITIES: right knee in immobilizer, wiggles toes. PPI Assessment/Plan: 1. Right TKA reimplant: PT/OT. 2. Asthma: Xyzal/Dulera/Albuterol HFA 3. DVT Prophylaxis: Coumadin/Lovenox 4. Analgesia: OxyContin/oxycodone 5. Hypothyroidism: Synthroid 6. Acute Blood loss Anemia: Transfused 4/6. H/H ok 11/14/17 12:48
[2017-11-14] MEDS: Warfarin TAB(*) 6 MG PO SCH (16:56)
[2017-11-14] MEDS: Montelukast Sodium TAB* 10 MG PO SCH (21:08)
[2017-11-14] MEDS: Methocarbamol TAB* 500 MG PO PRN (23:30)
[2017-11-15] MEDS: oxyCODONE TAB* 5 MG TAB PO PRN ×5 (03:34→23:41)
[2017-11-15 05:32] LABS: ABS Basophils 0.1 10^3/ul (0-0.2); ABS Eosinophils 0.4 10^3/ul (0-0.6); ABS Lymphocytes 1.5 10^3/ul (1.0-4.8); ABS Monocytes 0.5 10^3/ul (0-0.8); ABS Neutrophils 4.8 10^3/ul (1.5-7.7); ABS Nucleated RBC 0 10^3/ul; Eosinophil % 5.9 % (0-6); Hematocrit 27 % (35-47); Hemoglobin 8.9 g/dl (12.0-16.0); Mean Corpuscular HGB Conc 33 g/dl (31-36); Mean Corpuscular Hemoglobin 28 pg (27-31); Mean Corpuscular Volume 86 fL (80-97); Mean Platelet Volume 7.5 um3 (7.4-10.4); Nucleated Red Blood Cells % 0; Platelet Count 309 10^3/ul (150-450); Red Blood Count 3.12 10^6/ul (4.0-5.4); Red Cell Distribution Width 17 % (10.5-15); White Blood Count 7.4 10^3/ul (3.5-10.8)
[2017-11-15] MEDS: Levothyroxine TAB* 100 MCG TAB PO SCH (05:35)
[2017-11-15 05:44] LABS: INR 1.32 (0.77-1.02)
[2017-11-15 05:53] LABS: EGFR Non-African American 91.9 (>60)
--- NOTE | 2017-11-15 07:20 | PN ---
Progress Note - Progress Note Date of Service: 11/15/17 Note: POD #5 98.8, Hct 27%, INR 1.32. Micro has been no growth right knee. Awake, alert, cooperative and breathing easily. Right knee surgery: Skin edges look satisfactory and there are some areas of redness. All washed with soap and water and redressed with telfa /betadine. Imp: Possibly some cellulitis Plans: Keep knee straight and keflex 500 TID for 7 days.
[2017-11-15] MEDS: Dicyclomine CAP* 10 MG PO SCH ×3 (08:29→16:42)
[2017-11-15] MEDS: Cephalexin CAP* 500 MG PO SCH ×4 (08:30→20:49)
[2017-11-15] MEDS: Cetirizine* 10 MG TAB PO SCH (08:31)
[2017-11-15] MEDS: ESTROPIPATE 0.75 MG PO SCH (08:31)
[2017-11-15] MEDS: Docusate CAP* 100 MG PO SCH ×2 (08:31→20:54)
[2017-11-15] MEDS: MAGNESIUM GLUCONATE 500 MG PO SCH ×4 (08:32→20:50)
[2017-11-15] MEDS: FLUTICASONE 50 MCG BOTH NARES SCH (08:32)
[2017-11-15] MEDS: Mometasone/Formoter 200/5 MDI INH SCH ×2 (08:33→20:56)
[2017-11-15] MEDS: oxyCODONE SR TAB(*) 40 MG TAB.SR PO SCH ×2 (08:33→20:49)
[2017-11-15] MEDS: Sertraline* 50 MG TAB PO SCH ×2 (08:34→20:49)
[2017-11-15] MEDS: Potassium Chlor TAB* 20 MEQ TAB.ER PO SCH ×4 (08:34→20:50)
[2017-11-15] MEDS: Tiotropium CAP.INH* CAP.INH/18 MCG (USE ORDER SET !) INH SCH (08:35)
[2017-11-15] MEDS: Triamterene/HCTZ 37.5-25 MG* CAP PO SCH (08:36)
[2017-11-15] MEDS: Ondansetron ODT TAB* 4 MG PO PRN (09:16)
[2017-11-15] MEDS: PTO: Diclofenac 1% GEL (NF) 100 GM TUBE TOPICAL PRN (09:47)
[2017-11-15] MEDS: Enoxaparin(*) 40 MG/0.4 ML SYR SUBCUT SCH (12:07)
--- NOTE | 2017-11-15 12:32 | PMRUTEAM ---
PMRU: Team Meeting Current Status: Nursing: Current Status Skin Deviations [Right Knee] Incision Skin Deviation Description [ Dressing changed by . Dressing is clean, Right Knee] dry and intact. Physical Therapy: Current Status Bed Mobility Assistance Mod Assist,2 or More Person Assist Transfer Moblility Assistance Supervision,Contact Guard Assist Transfer/Bed Mobility Rolling Walker Recommended Devices Ambulation Assistance Supervision,Contact Guard Assist Ambulation Assistive Devices Rolling Walker Number of Feet Patient 20' x 2 Ambulated Stairs Assistance Not Tested Stairs Recommended Devices Two Rails Number of Stairs 5 Occupational Therapy: Current Status Upper Body Dressing Min Assist Lower Body Dressing Total Assist Bathing Mod Assist,Max Asst Toileting Total Assist,2 Person Assist Toilet Transfer Min Assist,2 Person Assist Eating Ind with Adaptive Equip Rec Therapy: Current Status Summary of Assessment and Pt. was open to conversation - talkative and Clinical Impression engaged. Pt. states she enjoys her life and was active in leisure prior to admission. Pt. open to continued leisure visits. Treatment Goals Pt. will engage in leisure activities prior to admission. Treatment Plan Provide RT services and encourage involvement. Social Work: Current Status Discharge Plan return home with home care svs and family support Potential for Family Training pt's family are attentive and involved Anticipated Discharge Home Destination Discharge With VNS and family support Goals: Physical Therapy: Initial Goals Bed Mobility Assistance Independent Transfer Mobility Assistance Independent Transfer/Bed Mobility Rolling Walker Recommended Devices Ambulation Independent Ambulation Recommended Devices Rolling Walker Ambulation Distance 150 Physical Therapy: Updated Goals Transfer/Bed Mobility Rolling Walker Recommended Devices Occupational Therapy: Initial Goals Goals to be Completed in (Days 21 ) Upper Body Bathing Routine Independent Lower Body Bathing Routine Modified Independent with Lower Body Bathing Assistive Long handled sponge Devices Comment Upper Body Dressing Routine Independent Lower Body Dressing Routine Moderate Assist Toilet Hygeine and Clothing Modified Independent with Management Routine Toilet Transfer Routine Modified Independent with Step-In Shower Transfer Supervision/Set Up Routine Functional Transfers for ADL Modified Independent with Grooming Routine Independent Feeding Routine Modified Independent with Social Work: Goals Discharge Plan return home with home care svs and family support Potential for Family Training pt's family are attentive and involved Anticipated Discharge Home Destination Discharge With VNS and family support Care Plan: Care Plan ADL's - Improve/Maintain Start: 11/13/17 11:21 Freq: [email or web address] Status: Active Target: Protocol: Activity Type Activity Date Activity User E-Sign Co-Sign Detail Recorded Client Recorded Date Recorded By Document 11/13/17 11:21 [id number] 11/13/17 11:21 [id number] 11/13/17 11:21 PMRU Outcome: ADL's/ADL Transfers Orders/Interventions Occupational Therapy Evaluation & Treatment Device No Patient to receive OT 5x/wk for 60-120 Therex min/day Self Care Management Group Therapy UE/LE ADL's with Assist Yes: Mod I UB, Mod A LB ADL Transfers with Assist Yes Toileting: Transfers,Clothing Management Yes ,Hygeine w/Assist Light Kitchen/Laundry w/Assist No Progression Toward Outcome/Goals Progressing Coping/Psych-Improve/Maintain Start: 11/12/17 18:40 Freq: [email or web address]@1200 Status: Active Target: Protocol: Activity Type Activity Date Activity User E-Sign Co-Sign Detail Recorded Client Recorded Date Recorded By Document 11/14/17 20:00 [id number] 11/14/17 21:10 [id number] 11/14/17 20:00 PMRU Outcome: Coping/Psychosocial Coping Outcome/Goals Verbalization of Acceptance of Rehab Admit Verbalization of Sense of Control Over Health Status Psychosocial Outcome/Goals Maintain/ Improve Emotional Health Cooperate/ Participate in Plan Progression Toward Outcome/Goals - Progressing Coping Progression Toward Outcome/Goals - Progressing Psychosocial DVT Prophylaxis- Improve/Maintain Start: 11/12/17 18:40 Freq: [email or web address] Status: Active Target: Protocol: Activity Type Activity Date Activity User E-Sign Co-Sign Detail Recorded Client Recorded Date Recorded By Document 11/14/17 20:00 [id number] 11/14/17 21:10 [id number] 11/14/17 20:00 PMRU Outcome: DVT Prophylaxis Outcome/Goals Remains Free of DVT Progression Toward Outcome/Goals Progressing Discharge Planning - Improve/Maintain Start: 11/12/17 18:40 Freq: [email or web address]@1200 Status: Active Target: Protocol: Activity Type Activity Date Activity User E-Sign Co-Sign Detail Recorded Client Recorded Date Recorded By Document 11/14/17 12:00 [id number] 11/14/17 15:30 [id number] 11/14/17 12:00 PMRU Outcome: Discharge Planning Update Patient Family No Outcome/Goals Demonstrates Understanding of Discharge Plan Other Outcome/Goals - Education-Improve/Maintain Start: 11/12/17 18:40 Freq: [email or web address]@1200 Status: Active Target: Protocol: Activity Type Activity Date Activity User E-Sign Co-Sign Detail Recorded Client Recorded Date Recorded By Document 11/14/17 20:00 [id number] 11/14/17 21:10 [id number] 11/14/17 20:00 PMRU Outcome: Education Outcome/Goals Demonstrate/ Verbalize Understanding of Written Discharge Instructions Encourage Questions Progression Toward Outcome/Goals Progressing Mobility- Improve/Maintain Start: 11/12/17 18:40 Freq: DAILY@1200 Status: Active Target: Protocol: Activity Type Activity Date Activity User E-Sign Co-Sign Detail Recorded Client Recorded Date Recorded By Document 11/15/17 12:11 [id number] [id number] 11/15/17 12:11 [id number] 11/15/17 12:11 PMRU Outcome: Mobility Physical Therapy Evaluation and Yes Treatment Activity OOB with Assistance Yes WBAT Yes Device Yes Assistance Yes Patient to be seen 5x/wk for 60-120 min/ Therex day for: Mobility Training Gait Training W/C Mobility Balance Outcome/Goals Maintain/ Achieve Baseline Mobility Status Improve Mobility Status Demonstrates Proper Use of Assistive Devices Free from Complications of Immobility Progression Toward Outcome/Goals Progressing Bed Mobility Yes: independent Transfers Yes: independent with RW and GB Gait x ft Yes: independent with RW and GB 150' Up/Down Stairs Yes: 5 with B rails Pain/Comfort- Improve/Maintain Start: 11/12/17 18:40 Freq: DAILY@1200 Status: Active Target: Protocol: Activity Type Activity Date Activity User E-Sign Co-Sign Detail Recorded Client Recorded Date Recorded By Document 11/14/17 20:00 [id number] 11/14/17 21:10 [id number] 11/14/17 20:00 PMRU Outcome: Pain/Comfort Outcome/Goals Demonstrates Knowledge and Use of Available Comfort Measures Progression Toward Outcome/Goals Progressing Safety- Improve/Maintain Start: 11/12/17 18:40 Freq: DAILY@1200 Status: Active Target: Protocol: Activity Type Activity Date Activity User E-Sign Co-Sign Detail Recorded Client Recorded Date Recorded By Document 11/14/17 20:00 [id number] 11/14/17 21:10 [id number] 11/14/17 20:00 PMRU Outcome: Safety Outcome/Goals Remain Free of Injury or Harm Cooperates with Safety Measures for Least Restrictive Environment Progression Toward Outcome/Goals Progressing Skin- Improve/Maintain Start: 11/12/17 18:40 Freq: DAILY@1200 Status: Active Target: Protocol: Activity Type Activity Date Activity User E-Sign Co-Sign Detail Recorded Client Recorded Date Recorded By Document 11/14/17 20:00 [id number] 11/14/17 21:10 [id number] 11/14/17 20:00 PMRU Outcome: Skin Skin Risk Level Medium Skin Orders Dressing Change Outcome/Goals Maintain/ Improve Skin Intergrity Surgical Incisions Healing Progression Toward Outcome/Goals Progressing Medicine Note: Length of Stay: 11 days Anticipated Discharge Destination: Home Tentative Discharge Date: 11/26/17 Discharged to: Home
--- NOTE | 2017-11-15 16:16 | PN ---
Progress Note Date of Service: 11/15/17 Note: QUENTIN STEWARD was visited. Therapy notes read and reviewed. She was discussed in interdisciplinary plan of care rounds. She has a yeasty rash under her breasts. Appreciate Dr. Wynn's help. Current Medications: Active Medications Generic Name Dose Route Start Last Admin Trade Name Freq PRN Reason Stop Dose Admin Acetaminophen 650 mg 11/12/17 11:56 11/13/17 06:01 Tylenol Tab* PO 650 mg Q6H PRN Administration FEVER/PAIN Albuterol 2 puff 11/13/17 15:32 Ventolin Hfa Inhaler* INH Q6H PRN SOB/WHEEZING Bisacodyl 10 mg 11/12/17 11:56 Dulcolax Supp* [place] DAILY PRN CONSTIPATION Cephalexin HCl 500 mg 11/15/17 09:00 11/15/17 13:16 Keflex Cap* PO 11/22/17 09:00 500 mg QID ZACH Administration Cetirizine HCl 10 mg 11/13/17 09:00 11/15/17 08:31 Zyrtec* PO 10 mg DAILY ZACH Administration Diclofenac Sodium 1 applic 11/13/17 15:33 11/15/17 09:47 Voltaren 1% Gel (Nf) TOPICAL 1 admin Q6H PRN Administration PAIN Protocol Dicyclomine HCl 10 mg 11/12/17 16:30 11/15/17 12:08 Bentyl Cap* PO 10 mg AC ZACH Administration Docusate Sodium 100 mg 11/12/17 21:00 11/15/17 08:31 Colace Cap* PO 100 mg BID ZACH Administration Enoxaparin Sodium 40 mg 11/12/17 12:00 11/15/17 12:07 Lovenox(*) SUBCUT 40 mg Q24H ZACH Administration Estropipate 0.75 mg 11/15/17 09:00 11/15/17 08:31 Ogen(Nf) PO 0.75 mg DAILY ZACH Administration Fluticasone Propionate 2 spray 11/13/17 09:00 11/15/17 08:32 Flonase Nasal [place] 50mcg* BOTH NARES 2 spray DAILY ZACH Administration Levothyroxine Sodium 100 mcg 11/13/17 06:00 11/15/17 05:35 Synthroid Tab* PO 100 mcg DAILY@0600 ZACH Administration Magnesium Hydroxide 30 ml 11/12/17 11:56 Milk Of Magnesia Liq* PO Q6H PRN CONSTIPATION Methocarbamol 1,000 mg 11/12/17 15:43 11/14/17 23:30 Robaxin Tab* PO 1,000 mg Q6H PRN Administration SPASMS Mometasone Furoate/Formoterol Fumar 2 puff 11/12/17 21:00 11/15/17 08:33 Dulera 200/5 Mdi* INH 2 puff BID ZACH Administration Montelukast Sodium 10 mg 11/12/17 21:00 11/14/17 21:08 Singulair Tab* PO 10 mg BEDTIME ZACH Administration Pto: Magnesium 500 mg 11/13/17 17:00 11/15/17 13:16 Gluconate 500 Mg PO 500 mg QID ZACH Administration Nystatin 1 applic 11/15/17 21:00 Nystatin Top Powder* TOPICAL BID ZACH Ondansetron HCl 4 mg 11/13/17 07:46 11/15/17 09:16 Zofran Odt Tab* PO 4 mg Q6H PRN Administration NAUSEA Oxycodone HCl 40 mg 11/12/17 21:00 11/15/17 08:33 Oxycontin(*) PO 40 mg Q12H ZACH Administration Oxycodone HCl 10 mg 11/12/17 12:11 Roxycodone Tab* PO Q4H PRN PAIN - MODERATE TO SEVERE Oxycodone HCl 15 mg 11/12/17 12:13 11/15/17 12:11 Roxycodone Tab* PO 15 mg Q4H PRN Administration PAIN - SEVERE Pharmacy Profile Note 1 note 11/14/17 17:00 11/14/17 16:56 Coumadin Daily Reminder* FOLLOW UP 1 note 1700 ZACH Administration Potassium Chloride 20 meq 11/12/17 13:00 11/15/17 13:16 Klor Con Er Tab* PO 20 meq QID ZACH Administration Senna 2 tab 11/12/17 11:56 11/12/17 21:16 Senokot Tab* PO 2 tab BEDTIME PRN Administration CONSTIPATION Sertraline HCl 50 mg 11/12/17 21:00 11/15/17 08:34 Zoloft* PO 50 mg Q12H ZACH Administration Tiotropium [place] 1 cap 11/13/17 09:00 11/15/17 08:35 Spiriva Cap.Inh* INH 1 inh DAILY ZACH Administration Triamterene/HCTZ 1 cap 11/13/17 09:00 11/15/17 08:36 Dyazide Cap* PO 1 cap DAILY ZACH Administration Warfarin Sodium 7.5 mg 11/15/17 17:00 Coumadin Tab(*) PO DAILY@1700 [facility] Protocol Vital Signs: Vital Signs Temp Pulse Resp BP Pulse Ox 98.3 F 82 16 144/62 100 11/15/17 03:34 11/15/17 03:34 11/15/17 12:11 11/15/17 03:34 11/15/17 03:34 Lab Results: Laboratory Results - last 24 hr 11/15/17 11/15/17 11/15/17 05:13 05:13 05:13 WBC 7.4 RBC 3.12 L Hgb 8.9 L Hct 27 L MCV 86 MCH 28 MCHC 33 RDW 17 H Plt Count 309 MPV 7.5 Neut % (Auto) 65.2 Lymph % (Auto) 21.0 L [place] % (Auto) 7.1 H Eos % (Auto) 5.9 Baso % (Auto) 0.8 Absolute Neuts (auto) 4.8 Absolute Lymphs (auto) 1.5 Absolute Monos (auto) 0.5 Absolute Eos (auto) 0.4 Absolute Basos (auto) 0.1 Absolute Nucleated RBC 0 Nucleated RBC % 0 INR (Anticoag Therapy) 1.32 H Sodium 135 L Potassium 4.3 Chloride 103 Carbon Dioxide 25 Anion Gap 7 BUN 15 Creatinine 0.62 Est GFR ( Amer) 118.2 Est GFR (Non-Af Amer) 91.9 BUN/Creatinine Ratio 24.2 H Glucose 88 Calcium 8.9 Total Bilirubin 0.40 AST 23 ALT 7 Alkaline Phosphatase 77 Total Protein 6.8 Albumin 3.3 Globulin 3.5 Albumin/Globulin Ratio 0.9 L Exam: LUNGS: Clear HEART: reg rhythm ABDOMEN: soft EXTREMITIES: right knee in immobilizer, wiggles toes. PPI Assessment/Plan: 1. Right TKA reimplant: PT/OT. 2. Asthma: Xyzal/Dulera/Albuterol HFA 3. DVT Prophylaxis: Coumadin/Lovenox 4. Analgesia: OxyContin/oxycodone 5. Hypothyroidism: Synthroid 6. Acute Blood loss Anemia: Transfused 4/6. H/H ok 7. Yeast-skin: Nystatin powder 11/15/17 16:16
[2017-11-15] MEDS: Warfarin TAB(*) 7.5 MG PO SCH (17:32)
[2017-11-15] MEDS: Montelukast Sodium TAB* 10 MG PO SCH (20:49)
[2017-11-15] MEDS: Nystatin TOP POWDER* 15 GM BTL TOPICAL SCH (21:33)
[2017-11-15] MEDS: Methocarbamol TAB* 500 MG PO PRN (23:41)
[2017-11-16] MEDS: PTO: Diclofenac 1% GEL (NF) 100 GM TUBE TOPICAL PRN (05:10)
[2017-11-16] MEDS: oxyCODONE TAB* 5 MG TAB PO PRN ×3 (05:11→16:17)
[2017-11-16] MEDS: Levothyroxine TAB* 100 MCG TAB PO SCH (05:11)
[2017-11-16 07:42] LABS: INR 1.51 (0.77-1.02)
[2017-11-16] MEDS: Mometasone/Formoter 200/5 MDI INH SCH ×2 (08:44→20:18)
[2017-11-16] MEDS: ESTROPIPATE 0.75 MG PO SCH (08:44)
[2017-11-16] MEDS: MAGNESIUM GLUCONATE 500 MG PO SCH ×4 (08:44→20:17)
[2017-11-16] MEDS: FLUTICASONE 50 MCG BOTH NARES SCH (08:44)
[2017-11-16] MEDS: Docusate CAP* 100 MG PO SCH ×2 (08:45→20:16)
[2017-11-16] MEDS: Dicyclomine CAP* 10 MG PO SCH ×3 (08:45→16:17)
[2017-11-16] MEDS: Cephalexin CAP* 500 MG PO SCH ×4 (08:45→20:16)
[2017-11-16] MEDS: Potassium Chlor TAB* 20 MEQ TAB.ER PO SCH ×4 (08:45→20:16)
[2017-11-16] MEDS: Cetirizine* 10 MG TAB PO SCH (08:46)
[2017-11-16] MEDS: Tiotropium CAP.INH* CAP.INH/18 MCG (USE ORDER SET !) INH SCH (08:46)
[2017-11-16] MEDS: oxyCODONE SR TAB(*) 40 MG TAB.SR PO SCH ×2 (08:46→20:16)
[2017-11-16] MEDS: Sertraline* 50 MG TAB PO SCH ×2 (08:46→20:16)
[2017-11-16] MEDS: Triamterene/HCTZ 37.5-25 MG* CAP PO SCH (08:46)
[2017-11-16] MEDS: Nystatin TOP POWDER* 15 GM BTL TOPICAL SCH ×2 (10:00→22:14)
[2017-11-16] MEDS: Methocarbamol TAB* 500 MG PO PRN (11:09)
[2017-11-16] MEDS: Enoxaparin(*) 40 MG/0.4 ML SYR SUBCUT SCH (12:09)
--- NOTE | 2017-11-16 12:32 | PMRUTEAM ---
PMRU: Team Meeting Current Status: Nursing: Current Status Skin Deviations [Right Knee] Incision Skin Deviation Description [ knee immobilizer and cryo unit in place Right Knee] Physical Therapy: Current Status Bed Mobility Assistance Supervision Transfer Moblility Assistance Supervision Transfer/Bed Mobility Rolling Walker Recommended Devices Ambulation Assistance Supervision Ambulation Assistive Devices Rolling Walker Number of Feet Patient 20' Ambulated Ambulation Comment step to type gait pattern R knee immobilizer in place aat. Stairs Assistance Not Tested Stairs Recommended Devices Two Rails Number of Stairs 5 Occupational Therapy: Current Status Upper Body Dressing Min Assist Lower Body Dressing Total Assist Bathing Max Asst Toileting Max Asst Toilet Transfer Contact Guard Assist Shower Transfer Progress N/T Eating Ind with Adaptive Equip Rec Therapy: Current Status Summary of Assessment and RT assessment complete and pt. is aware of RT Clinical Impression services. Pt. has been social and interactive - open to activities while on the unit. Treatment Goals Pt. will engage in leisure activities while on the unit. Treatment Plan Provide RT services and encourage involvement. Social Work: Current Status Discharge Plan return home with home care svs and family support Potential for Family Training pt's family are involved and supportive Anticipated Discharge Home Destination Discharge With return home with home care svs and family support Nutrition: Current Status Monitoring full nutrition assessment planned 11/22. Pt on regular diet. Initial goals as outlined below. Goals: Physical Therapy: Initial Goals Bed Mobility Assistance Independent Transfer Mobility Assistance Independent Transfer/Bed Mobility Rolling Walker Recommended Devices Ambulation Independent Ambulation Recommended Devices Rolling Walker Ambulation Distance 150 Physical Therapy: Updated Goals Bed Mobility Assistance Independent Transfer Mobility Assistance Independent Transfer/Bed Mobility Rolling Walker Recommended Devices Ambulation Assistance Independent Ambulation Assistive Devices None Ambulation Distance (ft) 150 Occupational Therapy: Initial Goals Goals to be Completed in (Days 21 ) Upper Body Bathing Routine Independent Lower Body Bathing Routine Modified Independent with Lower Body Bathing Assistive Long handled sponge Devices Comment Upper Body Dressing Routine Independent Lower Body Dressing Routine Moderate Assist Toilet Hygeine and Clothing Modified Independent with Management Routine Toilet Transfer Routine Modified Independent with Step-In Shower Transfer Supervision/Set Up Routine Functional Transfers for ADL Modified Independent with Grooming Routine Independent Feeding Routine Modified Independent with Nutrition: Goals Intervention Goals 1. adequate po intake to support post-op healing and maintenance of lean body mass without add'l wt gain 2. maintain bowel regularity w/o constipation or diarrhea Social Work: Goals Discharge Plan return home with home care svs and family support Potential for Family Training pt's family are involved and supportive Anticipated Discharge Home Destination Discharge With return home with home care svs and family support Care Plan: Care Plan ADL's - Improve/Maintain Start: 11/13/17 11:21 Freq: DAILY@1200 Status: Active Target: Protocol: Activity Type Activity Date Activity User E-Sign Co-Sign Detail Recorded Client Recorded Date Recorded By Document 11/15/17 14:59 [id number] 11/15/17 14:59 [id number] 11/15/17 14:59 PMRU Outcome: ADL's/ADL Transfers Orders/Interventions Occupational Therapy Evaluation & Treatment Device No Patient to receive OT 5x/wk for 60-120 Therex min/day Self Care Management Group Therapy UE/LE ADL's with Assist Yes: Mod I UB, Mod A LB ADL Transfers with Assist Yes Toileting: Transfers,Clothing Management Yes ,Hygeine w/Assist Light Kitchen/Laundry w/Assist No Progression Toward Outcome/Goals Progressing Outcome/Goals Met Pt making gains with transfers (now a 1 assist, instead of 2 assist). Putting more weight on RLE. Dynamic standing balance improving gradually. Continues to require extra time for ADL d/ t multiple creams and lotions. Coping/Psych-Improve/Maintain Start: 11/12/17 18:40 Freq: DAILY@1200 Status: Active Target: Protocol: Activity Type Activity Date Activity User E-Sign Co-Sign Detail Recorded Client Recorded Date Recorded By Document 11/16/17 00:32 [id number] [email or web address] 11/16/17 00:33 [id number] 11/16/17 00:32 PMRU Outcome: Coping/Psychosocial Coping Outcome/Goals Verbalization of Acceptance of Rehab Admit Verbalization of Sense of Control Over Health Status Psychosocial Outcome/Goals Maintain/ Improve Emotional Health Cooperate/ Participate in Plan Progression Toward Outcome/Goals - Progressing Coping Progression Toward Outcome/Goals - Progressing Psychosocial DVT Prophylaxis- Improve/Maintain Start: 11/12/17 18:40 Freq: DAILY@1200 Status: Active Target: Protocol: Activity Type Activity Date Activity User E-Sign Co-Sign Detail Recorded Client Recorded Date Recorded By Document 11/16/17 00:32 [id number] 11/16/17 00:33 [id number] 11/16/17 00:32 PMRU Outcome: DVT Prophylaxis Outcome/Goals Remains Free of DVT Progression Toward Outcome/Goals Progressing Discharge Planning - Improve/Maintain Start: 11/12/17 18:40 Freq: DAILY@1200 Status: Active Target: Protocol: Activity Type Activity Date Activity User E-Sign Co-Sign Detail Recorded Client Recorded Date Recorded By Document 11/16/17 00:32 [id number] 11/16/17 00:33 [id number] 11/16/17 00:32 PMRU Outcome: Discharge Planning Update Patient Family No Outcome/Goals Demonstrates Understanding of Discharge Plan Progression Toward Outcome/Goals Progressing Education-Improve/Maintain Start: 11/12/17 18:40 Freq: DAILY@1200 Status: Active Target: Protocol: Activity Type Activity Date Activity User E-Sign Co-Sign Detail Recorded Client Recorded Date Recorded By Document 11/16/17 00:32 [id number] [email or web address] 11/16/17 00:33 [id number] 11/16/17 00:32 PMRU Outcome: Education Outcome/Goals Demonstrate/ Verbalize Understanding of Written Discharge Instructions Encourage Questions Progression Toward Outcome/Goals Progressing Mobility- Improve/Maintain Start: 11/12/17 18:40 Freq: DAILY@1200 Status: Active Target: Protocol: Activity Type Activity Date Activity User E-Sign Co-Sign Detail Recorded Client Recorded Date Recorded By Document 11/15/17 12:11 [id number] 11/15/17 12:11 [id number] 11/15/17 12:11 PMRU Outcome: Mobility Physical Therapy Evaluation and Yes Treatment Activity OOB with Assistance Yes WBAT Yes Device Yes Assistance Yes Patient to be seen 5x/wk for 60-120 min/ Therex day for: Mobility Training Gait Training W/C Mobility Balance Outcome/Goals Maintain/ Achieve Baseline Mobility Status Improve Mobility Status Demonstrates Proper Use of Assistive Devices Free from Complications of Immobility Progression Toward Outcome/Goals Progressing Bed Mobility Yes: independent Transfers Yes: independent with RW and GB Gait x ft Yes: independent with RW and GB 150' Up/Down Stairs Yes: 5 with B rails Pain/Comfort- Improve/Maintain Start: 11/12/17 18:40 Freq: DAILY@1200 Status: Active Target: Protocol: Activity Type Activity Date Activity User E-Sign Co-Sign Detail Recorded Client Recorded Date Recorded By Document 11/16/17 00:32 [id number] 11/16/17 00:33 [id number] 11/16/17 00:32 PMRU Outcome: Pain/Comfort Outcome/Goals Demonstrates Knowledge and Use of Available Comfort Measures Progression Toward Outcome/Goals Progressing Outcome/Goals Met Comment 15mg oxycodone and 1000mg of robaxin given. Cryo unit in place Safety- Improve/Maintain Start: 11/12/17 18:40 Freq: DAILY@1200 Status: Active Target: Protocol: Activity Type Activity Date Activity User E-Sign Co-Sign Detail Recorded Client Recorded Date Recorded By Document 11/16/17 00:32 [id number] 11/16/17 00:33 [id number] 11/16/17 00:32 PMRU Outcome: Safety Outcome/Goals Remain Free of Injury or Harm Cooperates with Safety Measures for Least Restrictive Environment Progression Toward Outcome/Goals Progressing Skin- Improve/Maintain Start: 11/12/17 18:40 Freq: DAILY@1200 Status: Active Target: Protocol: Activity Type Activity Date Activity User E-Sign Co-Sign Detail Recorded Client Recorded Date Recorded By Document 11/16/17 00:32 [id number] 11/16/17 00:33 [id number] 11/16/17 00:32 PMRU Outcome: Skin Skin Risk Level Medium Skin Orders Dressing Change Outcome/Goals Maintain/ Improve Skin Intergrity Surgical Incisions Healing Progression Toward Outcome/Goals Progressing Medicine Note: Length of Stay: 10 days Anticipated Discharge Destination: Home Tentative Discharge Date: 11/26/17 Discharged to: Home
[2017-11-16] MEDS: Acetaminophen TAB* 325 MG PO PRN (14:10)
[2017-11-16] MEDS: Warfarin TAB(*) 7.5 MG PO SCH (17:30)
--- NOTE | 2017-11-16 17:36 | PN ---
Progress Note Date of Service: 11/16/17 Note: QUENTIN STEWARD was visited. Therapy notes read and reviewed. She was discussed in interdisciplinary team rounds. She is doing slightly better. She notes that her brother has , and the is Wednesday morning. She is not sure she will be strong enough by Wednesday to be discharged. INR starting to bump. Current Medications: Active Medications Generic Name Dose Route Start Last Admin Trade Name Freq PRN Reason Stop Dose Admin Acetaminophen 650 mg 11/12/17 11:56 11/16/17 14:10 Tylenol Tab* PO 650 mg Q6H PRN Administration FEVER/PAIN Albuterol 2 puff 11/13/17 15:32 Ventolin Hfa Inhaler* INH Q6H PRN SOB/WHEEZING Bisacodyl 10 mg 11/12/17 11:56 Dulcolax Supp* [place] DAILY PRN CONSTIPATION Cephalexin HCl 500 mg 11/15/17 09:00 11/16/17 17:30 Keflex Cap* PO 11/22/17 09:00 500 mg QID ZACH Administration Cetirizine HCl 10 mg 11/13/17 09:00 11/16/17 08:46 Zyrtec* PO 10 mg DAILY ZACH Administration Diclofenac Sodium 1 applic 11/13/17 15:33 11/16/17 05:10 Voltaren 1% Gel (Nf) TOPICAL 1 admin Q6H PRN Administration PAIN Protocol Dicyclomine HCl 10 mg 11/12/17 16:30 11/16/17 16:17 Bentyl Cap* PO 10 mg AC ZACH Administration Docusate Sodium 100 mg 11/12/17 21:00 11/16/17 08:45 Colace Cap* PO 100 mg BID ZACH Administration Enoxaparin Sodium 40 mg 11/12/17 12:00 11/16/17 12:09 Lovenox(*) SUBCUT 40 mg Q24H ZACH Administration Estropipate 0.75 mg 11/15/17 09:00 11/16/17 08:44 Ogen(Nf) PO 0.75 mg DAILY ZACH Administration Fluticasone Propionate 2 spray 11/13/17 09:00 11/16/17 08:44 Flonase Nasal [place] 50mcg* BOTH NARES 2 spray DAILY ZACH Administration Levothyroxine Sodium 100 mcg 11/13/17 06:00 11/16/17 05:11 Synthroid Tab* PO 100 mcg DAILY@0600 ZACH Administration Magnesium Hydroxide 30 ml 11/12/17 11:56 Milk Of Magnesia Liq* PO Q6H PRN CONSTIPATION Methocarbamol 1,000 mg 11/12/17 15:43 11/16/17 11:09 Robaxin Tab* PO 1,000 mg Q6H PRN Administration SPASMS Mometasone Furoate/Formoterol Fumar 2 puff 11/12/17 21:00 11/16/17 08:44 Dulera 200/5 Mdi* INH 2 puff BID ZACH Administration Montelukast Sodium 10 mg 11/12/17 21:00 11/15/17 20:49 Singulair Tab* PO 10 mg BEDTIME ZACH Administration Pto: Magnesium 500 mg 11/13/17 17:00 11/16/17 17:30 Gluconate 500 Mg PO 500 mg QID ZACH Administration Nystatin 1 applic 11/15/17 21:00 11/16/17 10:00 Nystatin Top Powder* TOPICAL 1 applic BID ZACH Administration Ondansetron HCl 4 mg 11/13/17 07:46 11/15/17 09:16 Zofran Odt Tab* PO 4 mg Q6H PRN Administration NAUSEA Oxycodone HCl 40 mg 11/12/17 21:00 11/16/17 08:46 Oxycontin(*) PO 40 mg Q12H ZACH Administration Oxycodone HCl 10 mg 11/12/17 12:11 Roxycodone Tab* PO Q4H PRN PAIN - MODERATE TO SEVERE Oxycodone HCl 15 mg 11/12/17 12:13 11/16/17 16:17 Roxycodone Tab* PO 15 mg Q4H PRN Administration PAIN - SEVERE Pharmacy Profile Note 1 note 11/14/17 17:00 11/15/17 17:36 Coumadin Daily Reminder* FOLLOW UP 1 note 1700 ZACH Administration Potassium Chloride 20 meq 11/12/17 13:00 11/16/17 17:30 Klor Con Er Tab* PO 20 meq QID ZACH Administration Senna 2 tab 11/12/17 11:56 11/12/17 21:16 Senokot Tab* PO 2 tab BEDTIME PRN Administration CONSTIPATION Sertraline HCl 50 mg 11/12/17 21:00 11/16/17 08:46 Zoloft* PO 50 mg Q12H ZACH Administration Tiotropium [place] 1 cap 11/13/17 09:00 11/16/17 08:46 Spiriva Cap.Inh* INH 1 inh DAILY ZACH Administration Triamterene/HCTZ 1 cap 11/13/17 09:00 11/16/17 08:46 Dyazide Cap* PO 1 cap DAILY ZACH Administration Warfarin Sodium 7.5 mg 11/15/17 17:00 11/16/17 17:30 Coumadin Tab(*) PO 7.5 mg DAILY@1700 ZACH Administration Protocol Vital Signs: Vital Signs Temp Pulse Resp BP Pulse Ox 97.5 F 87 18 140/61 100 11/16/17 16:13 11/16/17 16:13 11/16/17 16:17 11/16/17 16:13 11/16/17 16:13 Lab Results: Laboratory Results - last 24 hr 11/16/17 07:24 INR (Anticoag Therapy) 1.51 H Exam: LUNGS: Clear HEART: reg rhythm ABDOMEN: soft EXTREMITIES: right knee in immobilizer, wiggles toes. PPI Assessment/Plan: 1. Right TKA reimplant: PT/OT. 2. Asthma: Xyzal/Dulera/Albuterol HFA 3. DVT Prophylaxis: Coumadin/Lovenox 4. Analgesia: OxyContin/oxycodone 5. Hypothyroidism: Synthroid 6. Acute Blood loss Anemia: Transfused 4/6. H/H ok 7. Yeast-skin: Nystatin powder 11/16/17 17:36
[2017-11-16] MEDS: Montelukast Sodium TAB* 10 MG PO SCH (20:16)
[2017-11-17] MEDS: oxyCODONE TAB* 5 MG TAB PO PRN ×4 (01:43→20:52)
[2017-11-17] MEDS: Methocarbamol TAB* 500 MG PO PRN ×2 (01:43→23:28)
[2017-11-17] MEDS: Levothyroxine TAB* 100 MCG TAB PO SCH (05:09)
[2017-11-17] MEDS: Acetaminophen TAB* 325 MG PO PRN (05:09)
[2017-11-17] MEDS: Dicyclomine CAP* 10 MG PO SCH ×3 (07:48→16:40)
[2017-11-17] MEDS: Ondansetron ODT TAB* 4 MG PO PRN (07:48)
[2017-11-17 08:32] LABS: INR 1.61 (0.77-1.02)
[2017-11-17] MEDS: Cetirizine* 10 MG TAB PO SCH (09:29)
[2017-11-17] MEDS: Docusate CAP* 100 MG PO SCH ×2 (09:29→19:53)
[2017-11-17] MEDS: Cephalexin CAP* 500 MG PO SCH ×4 (09:29→19:53)
[2017-11-17] MEDS: ESTROPIPATE 0.75 MG PO SCH (09:30)
[2017-11-17] MEDS: FLUTICASONE 50 MCG BOTH NARES SCH (09:30)
[2017-11-17] MEDS: Mometasone/Formoter 200/5 MDI INH SCH ×2 (09:30→19:54)
[2017-11-17] MEDS: MAGNESIUM GLUCONATE 500 MG PO SCH ×4 (09:30→19:54)
[2017-11-17] MEDS: Nystatin TOP POWDER* 15 GM BTL TOPICAL SCH ×2 (09:31→19:53)
[2017-11-17] MEDS: oxyCODONE SR TAB(*) 40 MG TAB.SR PO SCH ×2 (09:31→19:53)
[2017-11-17] MEDS: Sertraline* 50 MG TAB PO SCH ×2 (09:32→19:53)
[2017-11-17] MEDS: Tiotropium CAP.INH* CAP.INH/18 MCG (USE ORDER SET !) INH SCH (09:32)
[2017-11-17] MEDS: Potassium Chlor TAB* 20 MEQ TAB.ER PO SCH ×4 (09:32→19:53)
[2017-11-17] MEDS: Triamterene/HCTZ 37.5-25 MG* CAP PO SCH (09:33)
[2017-11-17] MEDS: Enoxaparin(*) 40 MG/0.4 ML SYR SUBCUT SCH (12:46)
[2017-11-17] MEDS: Warfarin TAB(*) 7.5 MG PO SCH (16:59)
--- NOTE | 2017-11-17 19:34 | PN ---
Progress Note Date of Service: 11/17/17 Note: QUENTIN STEWARD was visited. Therapy notes read and reviewed. A little emotional over the of her brother, but realizes she is not ready for discharge Wednesday (to attend the ). She complains of some tingling in her feet and olsen when she tries to walk. Current Medications: Active Medications Generic Name Dose Route Start Last Admin Trade Name Freq PRN Reason Stop Dose Admin Acetaminophen 650 mg 11/12/17 11:56 11/17/17 05:09 Tylenol Tab* PO 650 mg Q6H PRN Administration FEVER/PAIN Albuterol 2 puff 11/13/17 15:32 Ventolin Hfa Inhaler* INH Q6H PRN SOB/WHEEZING Bisacodyl 10 mg 11/12/17 11:56 Dulcolax Supp* [place] DAILY PRN CONSTIPATION Cephalexin HCl 500 mg 11/15/17 09:00 11/17/17 16:59 Keflex Cap* PO 11/22/17 09:00 500 mg QID ZACH Administration Cetirizine HCl 10 mg 11/13/17 09:00 11/17/17 09:29 Zyrtec* PO 10 mg DAILY ZACH Administration Diclofenac Sodium 1 applic 11/13/17 15:33 11/16/17 05:10 Voltaren 1% Gel (Nf) TOPICAL 1 admin Q6H PRN Administration PAIN Protocol Dicyclomine HCl 10 mg 11/12/17 16:30 11/17/17 16:40 Bentyl Cap* PO 10 mg AC ZACH Administration Docusate Sodium 100 mg 11/12/17 21:00 11/17/17 09:29 Colace Cap* PO 100 mg BID ZACH Administration Enoxaparin Sodium 40 mg 11/12/17 12:00 11/17/17 12:46 Lovenox(*) SUBCUT 40 mg Q24H ZACH Administration Estropipate 0.75 mg 11/15/17 09:00 11/17/17 09:30 Ogen(Nf) PO 0.75 mg DAILY ZACH Administration Fluticasone Propionate 2 spray 11/13/17 09:00 11/17/17 09:30 Flonase Nasal [place] 50mcg* BOTH NARES 2 spray DAILY ZACH Administration Levothyroxine Sodium 100 mcg 11/13/17 06:00 11/17/17 05:09 Synthroid Tab* PO 100 mcg DAILY@0600 ZACH Administration Magnesium Hydroxide 30 ml 11/12/17 11:56 Milk Of Magnesia Liq* PO Q6H PRN CONSTIPATION Methocarbamol 1,000 mg 11/12/17 15:43 11/17/17 01:43 Robaxin Tab* PO 1,000 mg Q6H PRN Administration SPASMS Mometasone Furoate/Formoterol Fumar 2 puff 11/12/17 21:00 11/17/17 09:30 Dulera 200/5 Mdi* INH 2 puff BID ZACH Administration Montelukast Sodium 10 mg 11/12/17 21:00 11/16/17 20:16 Singulair Tab* PO 10 mg BEDTIME ZACH Administration Pto: Magnesium 500 mg 11/13/17 17:00 11/17/17 16:59 Gluconate 500 Mg PO 500 mg QID ZACH Administration Nystatin 1 applic 11/15/17 21:00 11/17/17 09:31 Nystatin Top Powder* TOPICAL 1 applic BID ZACH Administration Ondansetron HCl 4 mg 11/13/17 07:46 11/17/17 07:48 Zofran Odt Tab* PO 4 mg Q6H PRN Administration NAUSEA Oxycodone HCl 40 mg 11/12/17 21:00 11/17/17 09:31 Oxycontin(*) PO 40 mg Q12H ZACH Administration Oxycodone HCl 10 mg 11/12/17 12:11 Roxycodone Tab* PO Q4H PRN PAIN - MODERATE TO SEVERE Oxycodone HCl 15 mg 11/12/17 12:13 11/17/17 16:43 Roxycodone Tab* PO 15 mg Q4H PRN Administration PAIN - SEVERE Pharmacy Profile Note 1 note 11/14/17 17:00 11/17/17 17:00 Coumadin Daily Reminder* FOLLOW UP 1 note 1700 ZACH Administration Potassium Chloride 20 meq 11/12/17 13:00 11/17/17 17:00 Klor Con Er Tab* PO 20 meq QID ZACH Administration Senna 2 tab 11/12/17 11:56 11/12/17 21:16 Senokot Tab* PO 2 tab BEDTIME PRN Administration CONSTIPATION Sertraline HCl 50 mg 11/12/17 21:00 11/17/17 09:32 Zoloft* PO 50 mg Q12H ZACH Administration Tiotropium [place] 1 cap 11/13/17 09:00 11/17/17 09:32 Spiriva Cap.Inh* INH 1 inh DAILY ZACH Administration Triamterene/HCTZ 1 cap 11/13/17 09:00 11/17/17 09:33 Dyazide Cap* PO 1 cap DAILY ZACH Administration Warfarin Sodium 7.5 mg 11/15/17 17:00 11/17/17 16:59 Coumadin Tab(*) PO 7.5 mg DAILY@1700 ZACH Administration Protocol Vital Signs: Vital Signs Temp Pulse Resp BP Pulse Ox 98.2 F 84 16 116/49 100 11/17/17 15:41 11/17/17 15:41 11/17/17 19:06 11/17/17 15:41 11/17/17 15:41 Lab Results: Laboratory Results - last 24 hr 11/17/17 08:09 INR (Anticoag Therapy) 1.61 H Exam: LUNGS: Clear HEART: reg rhythm ABDOMEN: soft EXTREMITIES: right knee in immobilizer, wiggles toes. PPI Assessment/Plan: 1. Right TKA reimplant: PT/OT. 2. Asthma: Xyzal/Dulera/Albuterol HFA 3. DVT Prophylaxis: Coumadin/Lovenox 4. Analgesia: OxyContin/oxycodone 5. Hypothyroidism: Synthroid 6. Acute Blood loss Anemia: Transfused 4/6. H/H ok. Check H/H in am. 7. Yeast-skin: Nystatin powder . 11/17/17 19:34
[2017-11-17] MEDS: Montelukast Sodium TAB* 10 MG PO SCH (19:53)
[2017-11-18] MEDS: Levothyroxine TAB* 100 MCG TAB PO SCH (04:12)
[2017-11-18] MEDS: oxyCODONE TAB* 5 MG TAB PO PRN ×4 (04:12→23:38)
[2017-11-18] MEDS: Acetaminophen TAB* 325 MG PO PRN ×2 (05:59→15:06)
[2017-11-18 06:06] LABS: INR 1.92 (0.77-1.02)
[2017-11-18 06:16] LABS: ABS Basophils 0.1 10^3/ul (0-0.2); ABS Eosinophils 0.5 10^3/ul (0-0.6); ABS Lymphocytes 1.2 10^3/ul (1.0-4.8); ABS Monocytes 0.6 10^3/ul (0-0.8); ABS Neutrophils 4.5 10^3/ul (1.5-7.7); ABS Nucleated RBC 0 10^3/ul; Eosinophil % 6.9 % (0-6); Hematocrit 29 % (35-47); Hemoglobin 9.4 g/dl (12.0-16.0); Lymphocyte % 17.2 % (25-47); Mean Corpuscular HGB Conc 33 g/dl (31-36); Mean Corpuscular Hemoglobin 28 pg (27-31); Mean Corpuscular Volume 86 fL (80-97); Mean Platelet Volume 7.3 um3 (7.4-10.4); Nucleated Red Blood Cells % 0.2; Platelet Count 383 10^3/ul (150-450); Red Blood Count 3.35 10^6/ul (4.0-5.4); Red Cell Distribution Width 17 % (10.5-15); White Blood Count 6.9 10^3/ul (3.5-10.8)
[2017-11-18] MEDS: Dicyclomine CAP* 10 MG PO SCH ×3 (09:00→16:33)
[2017-11-18] MEDS: Cetirizine* 10 MG TAB PO SCH (09:01)
[2017-11-18] MEDS: ESTROPIPATE 0.75 MG PO SCH (09:01)
[2017-11-18] MEDS: Docusate CAP* 100 MG PO SCH ×2 (09:01→20:14)
[2017-11-18] MEDS: Cephalexin CAP* 500 MG PO SCH ×4 (09:01→20:14)
[2017-11-18] MEDS: FLUTICASONE 50 MCG BOTH NARES SCH (09:02)
[2017-11-18] MEDS: MAGNESIUM GLUCONATE 500 MG PO SCH ×4 (09:02→20:13)
[2017-11-18] MEDS: Mometasone/Formoter 200/5 MDI INH SCH ×2 (09:03→20:17)
[2017-11-18] MEDS: oxyCODONE SR TAB(*) 40 MG TAB.SR PO SCH ×2 (09:03→20:14)
[2017-11-18] MEDS: Potassium Chlor TAB* 20 MEQ TAB.ER PO SCH ×4 (09:04→20:14)
[2017-11-18] MEDS: Sertraline* 50 MG TAB PO SCH ×2 (09:04→20:14)
[2017-11-18] MEDS: Triamterene/HCTZ 37.5-25 MG* CAP PO SCH (09:05)
[2017-11-18] MEDS: Tiotropium CAP.INH* CAP.INH/18 MCG (USE ORDER SET !) INH SCH (09:05)
[2017-11-18] MEDS: Nystatin TOP POWDER* 15 GM BTL TOPICAL SCH ×2 (09:57→21:05)
--- NOTE | 2017-11-18 10:07 | PN ---
Progress Note - Progress Note Date of Service: 11/18/17 Note: POD # 8. Temp 98.8. Hct 29%. Right knee surgery is clean and healing well, all washed soap and water and redressed with triple abx ointment and telfa. Oxygen sat. right 2nd toe is 100%. INR is 1.9 so the lovenox can be stopped. Imp: Stable. Her right foot sensitivity is due to the several months of non- weight bearing. Plans: Up with walker Weight as able right foot OK to do surgery care with soap and water washes and abx or betadine dressing and telfa. Keep knee straight in the brace.
[2017-11-18] MEDS: Warfarin TAB(*) 7.5 MG PO SCH (16:34)
[2017-11-18] MEDS: Montelukast Sodium TAB* 10 MG PO SCH (20:14)
[2017-11-18] MEDS: PTO: Diclofenac 1% GEL (NF) 100 GM TUBE TOPICAL PRN ×2 (21:05)
--- NOTE | 2017-11-18 22:02 | PN ---
Progress Note Date of Service: 11/18/17 Note: QUENTIN STEWARD was visited. Therapy notes read and reviewed. Appreciate Dr. Wynn 's help. She is doing fairly well with mobilizing. Current Medications: Active Medications Generic Name Dose Route Start Last Admin Trade Name Freq PRN Reason Stop Dose Admin Acetaminophen 650 mg 11/12/17 11:56 11/18/17 15:06 Tylenol Tab* PO 650 mg Q6H PRN Administration FEVER/PAIN Albuterol 2 puff 11/13/17 15:32 Ventolin Hfa Inhaler* INH Q6H PRN SOB/WHEEZING Bisacodyl 10 mg 11/12/17 11:56 Dulcolax Supp* NM DAILY PRN CONSTIPATION Cephalexin HCl 500 mg 11/15/17 09:00 11/18/17 20:14 Keflex Cap* PO 11/22/17 09:00 500 mg QID ZACH Administration Cetirizine HCl 10 mg 11/13/17 09:00 11/18/17 09:01 Zyrtec* PO 10 mg DAILY ZACH Administration Diclofenac Sodium 1 applic 11/13/17 15:33 11/18/17 21:05 Voltaren 1% Gel (Nf) TOPICAL 1 admin Q6H PRN Administration PAIN Protocol Dicyclomine HCl 10 mg 11/12/17 16:30 11/18/17 16:33 Bentyl Cap* PO 10 mg AC ZACH Administration Docusate Sodium 100 mg 11/12/17 21:00 11/18/17 20:14 Colace Cap* PO 100 mg BID ZACH Administration Estropipate 0.75 mg 11/15/17 09:00 11/18/17 09:01 Ogen(Nf) PO 0.75 mg DAILY ZACH Administration Fluticasone Propionate 2 spray 11/13/17 09:00 11/18/17 09:02 Flonase Nasal [place] 50mcg* BOTH NARES 2 spray DAILY ZACH Administration Levothyroxine Sodium 100 mcg 11/13/17 06:00 11/18/17 04:12 Synthroid Tab* PO 100 mcg DAILY@0600 ZACH Administration Magnesium Hydroxide 30 ml 11/12/17 11:56 Milk Of Magnesia Liq* PO Q6H PRN CONSTIPATION Methocarbamol 1,000 mg 11/12/17 15:43 11/17/17 23:28 Robaxin Tab* PO 1,000 mg Q6H PRN Administration SPASMS Mometasone Furoate/Formoterol Fumar 2 puff 11/12/17 21:00 11/18/17 20:17 Dulera 200/5 Mdi* INH 2 puff BID ZACH Administration Montelukast Sodium 10 mg 11/12/17 21:00 11/18/17 20:14 Singulair Tab* PO 10 mg BEDTIME ZACH Administration Pto: Magnesium 500 mg 11/13/17 17:00 11/18/17 20:13 Gluconate 500 Mg PO 500 mg QID ZACH Administration Nystatin 1 applic 11/15/17 21:00 11/18/17 21:05 Nystatin Top Powder* TOPICAL 1 applic BID ZACH Administration Ondansetron HCl 4 mg 11/13/17 07:46 11/17/17 07:48 Zofran Odt Tab* PO 4 mg Q6H PRN Administration NAUSEA Oxycodone HCl 40 mg 11/12/17 21:00 11/18/17 20:14 Oxycontin(*) PO 40 mg Q12H ZACH Administration Oxycodone HCl 10 mg 11/12/17 12:11 Roxycodone Tab* PO Q4H PRN PAIN - MODERATE TO SEVERE Oxycodone HCl 15 mg 11/12/17 12:13 11/18/17 16:32 Roxycodone Tab* PO 15 mg Q4H PRN Administration PAIN - SEVERE Pharmacy Profile Note 1 note 11/14/17 17:00 11/18/17 19:05 Coumadin Daily Reminder* FOLLOW UP 1 note 1700 ZACH Administration Potassium Chloride 20 meq 11/12/17 13:00 11/18/17 20:14 Klor Con Er Tab* PO 20 meq QID ZACH Administration Senna 2 tab 11/12/17 11:56 11/12/17 21:16 Senokot Tab* PO 2 tab BEDTIME PRN Administration CONSTIPATION Sertraline HCl 50 mg 11/12/17 21:00 11/18/17 20:14 Zoloft* PO 50 mg Q12H ZACH Administration Tiotropium [place] 1 cap 11/13/17 09:00 11/18/17 09:05 Spiriva Cap.Inh* INH 1 inh DAILY ZACH Administration Triamterene/HCTZ 1 cap 11/13/17 09:00 11/18/17 09:05 Dyazide Cap* PO 1 cap DAILY ZACH Administration Warfarin Sodium 7.5 mg 11/15/17 17:00 11/18/17 16:34 Coumadin Tab(*) PO 7.5 mg DAILY@1700 ZACH Administration Protocol Vital Signs: Vital Signs Temp Pulse Resp BP Pulse Ox 98.3 F 64 18 116/50 96 11/18/17 16:50 11/18/17 16:19 11/18/17 21:09 11/18/17 16:50 11/18/17 19:08 Lab Results: Laboratory Results - last 24 hr 11/18/17 11/18/17 05:46 05:46 WBC 6.9 RBC 3.35 L Hgb 9.4 L Hct 29 L MCV 86 MCH 28 MCHC 33 RDW 17 H Plt Count 383 MPV 7.3 L Neut % (Auto) 65.6 Lymph % (Auto) 17.2 L [place] % (Auto) 9.3 H Eos % (Auto) 6.9 H Baso % (Auto) 1.0 Absolute Neuts (auto) 4.5 Absolute Lymphs (auto) 1.2 Absolute Monos (auto) 0.6 Absolute Eos (auto) 0.5 Absolute Basos (auto) 0.1 Absolute Nucleated RBC 0 Nucleated RBC % 0.2 INR (Anticoag Therapy) 1.92 H Exam: LUNGS: Clear HEART: reg rhythm ABDOMEN: soft EXTREMITIES: right knee in immobilizer, wiggles toes. PPI Assessment/Plan: 1. Right TKA reimplant: PT/OT. 2. Asthma: Xyzal/Dulera/Albuterol HFA 3. DVT Prophylaxis: Coumadin. Lovenox d/c'd 4. Analgesia: OxyContin/oxycodone 5. Hypothyroidism: Synthroid 6. Acute Blood loss Anemia: Transfused 4/6. H/H ok. 7. Yeast-skin: Nystatin powder .11/18/17 22:03
[2017-11-18] MEDS: Ondansetron ODT TAB* 4 MG PO PRN (23:41)
[2017-11-19] MEDS: oxyCODONE TAB* 5 MG TAB PO PRN ×5 (04:07→23:40)
[2017-11-19] MEDS: Levothyroxine TAB* 100 MCG TAB PO SCH (05:34)
[2017-11-19 06:58] LABS: INR 2.16 (0.77-1.02)
[2017-11-19] MEDS: Nystatin TOP POWDER* 15 GM BTL TOPICAL SCH ×2 (07:56→21:05)
[2017-11-19] MEDS: PTO: Diclofenac 1% GEL (NF) 100 GM TUBE TOPICAL PRN (07:56)
[2017-11-19] MEDS: Triamterene/HCTZ 37.5-25 MG* CAP PO SCH (07:57)
[2017-11-19] MEDS: oxyCODONE SR TAB(*) 40 MG TAB.SR PO SCH ×2 (07:57→21:12)
[2017-11-19] MEDS: Dicyclomine CAP* 10 MG PO SCH ×3 (07:57→17:06)
[2017-11-19] MEDS: Cetirizine* 10 MG TAB PO SCH (07:57)
[2017-11-19] MEDS: Tiotropium CAP.INH* CAP.INH/18 MCG (USE ORDER SET !) INH SCH (07:57)
[2017-11-19] MEDS: Potassium Chlor TAB* 20 MEQ TAB.ER PO SCH ×4 (07:57→21:07)
[2017-11-19] MEDS: Docusate CAP* 100 MG PO SCH ×2 (07:58→21:01)
[2017-11-19] MEDS: Cephalexin CAP* 500 MG PO SCH ×4 (07:58→21:01)
[2017-11-19] MEDS: Sertraline* 50 MG TAB PO SCH ×2 (07:58→21:07)
[2017-11-19] MEDS: MAGNESIUM GLUCONATE 500 MG PO SCH ×4 (07:58→21:02)
[2017-11-19] MEDS: FLUTICASONE 50 MCG BOTH NARES SCH (07:58)
[2017-11-19] MEDS: ESTROPIPATE 0.75 MG PO SCH (08:00)
[2017-11-19] MEDS: Mometasone/Formoter 200/5 MDI INH SCH ×2 (08:00→21:03)
[2017-11-19] MEDS: Ondansetron ODT TAB* 4 MG PO PRN (08:06)
--- NOTE | 2017-11-19 13:12 | PN ---
Progress Note Date of Service: 11/19/17 Note: QUENTIN STEWARD was visited. Nursing and therapy notes read and reviewed. No chest pain, shortness of breath or abdominal pain. Upset she is not at brother' s today. Denies any new problems. Current Medications: Active Medications Generic Name Dose Route Start Last Admin Trade Name Freq PRN Reason Stop Dose Admin Acetaminophen 650 mg 11/12/17 11:56 11/18/17 15:06 Tylenol Tab* PO 650 mg Q6H PRN Administration FEVER/PAIN Albuterol 2 puff 11/13/17 15:32 Ventolin Hfa Inhaler* INH Q6H PRN SOB/WHEEZING Bisacodyl 10 mg 11/12/17 11:56 Dulcolax Supp* [place] DAILY PRN CONSTIPATION Cephalexin HCl 500 mg 11/15/17 09:00 11/19/17 12:18 Keflex Cap* PO 11/22/17 09:00 500 mg QID ZACH Administration Cetirizine HCl 10 mg 11/13/17 09:00 11/19/17 07:57 Zyrtec* PO 10 mg DAILY ZACH Administration Diclofenac Sodium 1 applic 11/13/17 15:33 11/19/17 07:56 Voltaren 1% Gel (Nf) TOPICAL 1 admin Q6H PRN Administration PAIN Protocol Dicyclomine HCl 10 mg 11/12/17 16:30 11/19/17 12:18 Bentyl Cap* PO 10 mg AC ZACH Administration Docusate Sodium 100 mg 11/12/17 21:00 11/19/17 07:58 Colace Cap* PO 100 mg BID ZACH Administration Estropipate 0.75 mg 11/15/17 09:00 11/19/17 08:00 Ogen(Nf) PO 0.75 mg DAILY ZACH Administration Fluticasone Propionate 2 spray 11/13/17 09:00 11/19/17 07:58 Flonase Nasal [place] 50mcg* BOTH NARES 2 spray DAILY ZACH Administration Levothyroxine Sodium 100 mcg 11/13/17 06:00 11/19/17 05:34 Synthroid Tab* PO 100 mcg DAILY@0600 ZACH Administration Magnesium Hydroxide 30 ml 11/12/17 11:56 Milk Of Magnesia Liq* PO Q6H PRN CONSTIPATION Methocarbamol 1,000 mg 11/12/17 15:43 11/17/17 23:28 Robaxin Tab* PO 1,000 mg Q6H PRN Administration SPASMS Mometasone Furoate/Formoterol Fumar 2 puff 11/12/17 21:00 11/19/17 08:00 Dulera 200/5 Mdi* INH 2 puff BID ZACH Administration Montelukast Sodium 10 mg 11/12/17 21:00 11/18/17 20:14 Singulair Tab* PO 10 mg BEDTIME ZACH Administration Pto: Magnesium 500 mg 11/13/17 17:00 11/19/17 12:18 Gluconate 500 Mg PO 500 mg QID ZACH Administration Nystatin 1 applic 11/15/17 21:00 11/19/17 07:56 Nystatin Top Powder* TOPICAL 1 applic BID ZACH Administration Ondansetron HCl 4 mg 11/13/17 07:46 11/19/17 08:06 Zofran Odt Tab* PO 4 mg Q6H PRN Administration NAUSEA Oxycodone HCl 40 mg 11/12/17 21:00 11/19/17 07:57 Oxycontin(*) PO 40 mg Q12H ZACH Administration Oxycodone HCl 10 mg 11/12/17 12:11 Roxycodone Tab* PO Q4H PRN PAIN - MODERATE TO SEVERE Oxycodone HCl 15 mg 11/12/17 12:13 11/19/17 09:11 Roxycodone Tab* PO 15 mg Q4H PRN Administration PAIN - SEVERE Pharmacy Profile Note 1 note 11/14/17 17:00 11/18/17 19:05 Coumadin Daily Reminder* FOLLOW UP 1 note 1700 ZACH Administration Potassium Chloride 20 meq 11/12/17 13:00 11/19/17 12:18 Klor Con Er Tab* PO 20 meq QID ZACH Administration Senna 2 tab 11/12/17 11:56 11/12/17 21:16 Senokot Tab* PO 2 tab BEDTIME PRN Administration CONSTIPATION Sertraline HCl 50 mg 11/12/17 21:00 11/19/17 07:58 Zoloft* PO 50 mg Q12H ZACH Administration Tiotropium [place] 1 cap 11/13/17 09:00 11/19/17 07:57 Spiriva Cap.Inh* INH 1 inh DAILY ZACH Administration Triamterene/HCTZ 1 cap 11/13/17 09:00 04/13/18 07:57 Dyazide Cap* PO 1 cap DAILY ZACH Administration Warfarin Sodium 7.5 mg 11/15/17 17:00 11/18/17 16:34 Coumadin Tab(*) PO 7.5 mg DAILY@1700 ZACH Administration Protocol Vital Signs: Vital Signs Temp Pulse Resp BP Pulse Ox 97.9 F 77 18 128/48 95 11/19/17 04:29 11/19/17 04:29 11/19/17 12:18 11/19/17 04:29 11/19/17 08:00 Lab Results: Laboratory Results - last 24 hr 11/19/17 06:37 INR (Anticoag Therapy) 2.16 H Exam: GEN: no acute distress. alert and appropriate LUNGS: Clear to auscultation bilaterally HEART: regular rate and rhythm ABDOMEN: soft, + bowel sounds, non-tender, non-distended EXTREMITIES: right knee in immobilizer. no pedal edema. Demonstrates 5/5 motor strength at bilateral EHL and reports chronic peripheral neuropathy to [place] bilaterally Assessment/Plan: 82yo woman s/p reimplantation of right TKR 1. Right TKA reimplant: PT/OT. f/u with Dr. Wynn done yesterday. He felt right foot hypersensitivity due to lack of weight bearing prior to surgery and readjustment. 2. Asthma: Xyzal/Dulera/Albuterol HFA 3. DVT Prophylaxis: Coumadin 7.5mg qday. INR now therapeutic. recheck tomorrow for stability. 4. Analgesia: OxyContin/oxycodone 5. Hypothyroidism: Synthroid 6. Acute Blood loss Anemia: Transfused 4/6. H/H has been stable 7. Yeast-skin: Nystatin powder 8. Advanced directives: full code 9. Estimated LOS: 11/26/17 11/19/17 13:13
[2017-11-19] MEDS: Warfarin TAB(*) 7.5 MG PO SCH (17:07)
[2017-11-19] MEDS: Montelukast Sodium TAB* 10 MG PO SCH (21:04)
[2017-11-19] MEDS: Methocarbamol TAB* 500 MG PO PRN (22:19)
[2017-11-20] MEDS: oxyCODONE TAB* 5 MG TAB PO PRN ×5 (04:57→23:04)
[2017-11-20] MEDS: Levothyroxine TAB* 100 MCG TAB PO SCH (05:02)
[2017-11-20 06:42] LABS: INR 2.59 (0.77-1.02)
[2017-11-20] MEDS: oxyCODONE SR TAB(*) 40 MG TAB.SR PO SCH ×2 (09:09→20:20)
[2017-11-20] MEDS: Tiotropium CAP.INH* CAP.INH/18 MCG (USE ORDER SET !) INH SCH (09:09)
[2017-11-20] MEDS: Cetirizine* 10 MG TAB PO SCH (09:09)
[2017-11-20] MEDS: FLUTICASONE 50 MCG BOTH NARES SCH (09:10)
[2017-11-20] MEDS: Potassium Chlor TAB* 20 MEQ TAB.ER PO SCH ×4 (09:10→20:19)
[2017-11-20] MEDS: Mometasone/Formoter 200/5 MDI INH SCH ×2 (09:10→20:23)
[2017-11-20] MEDS: Docusate CAP* 100 MG PO SCH ×2 (09:10→20:22)
[2017-11-20] MEDS: Sertraline* 50 MG TAB PO SCH ×2 (09:10→20:19)
[2017-11-20] MEDS: Dicyclomine CAP* 10 MG PO SCH ×3 (09:13→16:35)
[2017-11-20] MEDS: Cephalexin CAP* 500 MG PO SCH ×4 (09:14→20:17)
[2017-11-20] MEDS: Triamterene/HCTZ 37.5-25 MG* CAP PO SCH (09:15)
[2017-11-20] MEDS: MAGNESIUM GLUCONATE 500 MG PO SCH ×4 (09:19→20:21)
[2017-11-20] MEDS: ESTROPIPATE 0.75 MG PO SCH (09:19)
[2017-11-20] MEDS: Ondansetron ODT TAB* 4 MG PO PRN (09:22)
--- NOTE | 2017-11-20 10:10 | PN ---
Progress Note Date of Service: 11/20/17 Note: QUENTIN STEWARD was visited. Nursing and therapy notes read and reviewed. She was happy to be able to observe the services of her brother yesterday remotely. No chest pain, shortness of breath or abdominal pain. She has ongoing concerns for right foot and ankle pain. She has known peripheral neuropathy but feels more pain medially in her right ankle and in the foot with weight bearing. Current Medications: Active Medications Generic Name Dose Route Start Last Admin Trade Name Freq PRN Reason Stop Dose Admin Acetaminophen 650 mg 11/12/17 11:56 11/18/17 15:06 Tylenol Tab* PO 650 mg Q6H PRN Administration FEVER/PAIN Albuterol 2 puff 11/13/17 15:32 Ventolin Hfa Inhaler* INH Q6H PRN SOB/WHEEZING Bisacodyl 10 mg 11/12/17 11:56 Dulcolax Supp* [place] DAILY PRN CONSTIPATION Cephalexin HCl 500 mg 11/15/17 09:00 11/20/17 09:14 Keflex Cap* PO 11/22/17 09:00 500 mg QID ZACH Administration Cetirizine HCl 10 mg 11/13/17 09:00 11/20/17 09:09 Zyrtec* PO 10 mg DAILY ZACH Administration Diclofenac Sodium 1 applic 11/13/17 15:33 11/19/17 07:56 Voltaren 1% Gel (Nf) TOPICAL 1 admin Q6H PRN Administration PAIN Protocol Dicyclomine HCl 10 mg 11/12/17 16:30 11/20/17 09:13 Bentyl Cap* PO 10 mg AC ZACH Administration Docusate Sodium 100 mg 11/12/17 21:00 11/20/17 09:10 Colace Cap* PO 100 mg BID ZACH Administration Estropipate 0.75 mg 11/15/17 09:00 11/20/17 09:19 Ogen(Nf) PO 0.75 mg DAILY ZACH Administration Fluticasone Propionate 2 spray 11/13/17 09:00 11/20/17 09:10 Flonase Nasal [place] 50mcg* BOTH NARES 2 spray DAILY ZACH Administration Levothyroxine Sodium 100 mcg 11/13/17 06:00 11/20/17 05:02 Synthroid Tab* PO 100 mcg DAILY@0600 ZACH Administration Magnesium Hydroxide 30 ml 11/12/17 11:56 Milk Of Magnesia Liq* PO Q6H PRN CONSTIPATION Methocarbamol 1,000 mg 11/12/17 15:43 11/19/17 22:19 Robaxin Tab* PO 1,000 mg Q6H PRN Administration SPASMS Mometasone Furoate/Formoterol Fumar 2 puff 11/12/17 21:00 11/20/17 09:10 Dulera 200/5 Mdi* INH 2 puff BID ZACH Administration Montelukast Sodium 10 mg 11/12/17 21:00 11/19/17 21:04 Singulair Tab* PO 10 mg BEDTIME ZACH Administration Pto: Magnesium 500 mg 11/13/17 17:00 11/20/17 09:19 Gluconate 500 Mg PO 500 mg QID ZACH Administration Nystatin 1 applic 11/15/17 21:00 11/19/17 21:05 Nystatin Top Powder* TOPICAL 1 applic BID ZACH Administration Ondansetron HCl 4 mg 11/13/17 07:46 11/20/17 09:22 Zofran Odt Tab* PO 4 mg Q6H PRN Administration NAUSEA Oxycodone HCl 40 mg 11/12/17 21:00 11/20/17 09:09 Oxycontin(*) PO 40 mg Q12H ZACH Administration Oxycodone HCl 10 mg 11/12/17 12:11 Roxycodone Tab* PO Q4H PRN PAIN - MODERATE TO SEVERE Oxycodone HCl 15 mg 11/12/17 12:13 11/20/17 09:09 Roxycodone Tab* PO 15 mg Q4H PRN Administration PAIN - SEVERE Pharmacy Profile Note 1 note 11/14/17 17:00 11/19/17 17:36 Coumadin Daily Reminder* FOLLOW UP 1 note 1700 ZACH Administration Potassium Chloride 20 meq 11/12/17 13:00 11/20/17 09:10 Klor Con Er Tab* PO 20 meq QID ZACH Administration Senna 2 tab 11/12/17 11:56 11/12/17 21:16 Senokot Tab* PO 2 tab BEDTIME PRN Administration CONSTIPATION Sertraline HCl 50 mg 11/12/17 21:00 11/20/17 09:10 Zoloft* PO 50 mg Q12H ZACH Administration Tiotropium [place] 1 cap 11/13/17 09:00 11/20/17 09:09 Spiriva Cap.Inh* INH 1 inh DAILY ZACH Administration Triamterene/HCTZ 1 cap 11/13/17 09:00 11/20/17 09:15 Dyazide Cap* PO 1 cap DAILY ZACH Administration Warfarin Sodium 7.5 mg 11/15/17 17:00 11/19/17 17:07 Coumadin Tab(*) PO 7.5 mg DAILY@1700 ZACH Administration Protocol Vital Signs: Vital Signs Temp Pulse Resp BP Pulse Ox 98.4 F 81 16 133/54 99 11/20/17 04:54 11/20/17 04:54 11/20/17 09:13 11/20/17 04:54 11/20/17 04:54 Lab Results: Laboratory Results - last 24 hr 11/20/17 06:23 INR (Anticoag Therapy) 2.59 H Exam: GEN: no acute distress. alert and appropriate LUNGS: Clear to auscultation bilaterally HEART: regular rate and rhythm ABDOMEN: soft, + bowel sounds, non-tender, non-distended EXTREMITIES: right knee in immobilizer. no pedal edema. Tender to palpation at right medial malleolus with ecchymosis. No specific foot pain otherwise. Demonstrates 5/5 motor strength at bilateral EHL and reports chronic peripheral neuropathy to [place] bilaterally Assessment/Plan: 82yo woman s/p reimplantation of right TKR 1. Right TKA reimplant: PT/OT. f/u with Dr. Wynn as needed. He felt right foot hypersensitivity may be due to lack of weight bearing prior to surgery and readjustment. Check x-ray of right ankle and foot. 2. Asthma: Xyzal/Dulera/Albuterol HFA 3. DVT Prophylaxis: Coumadin 7.5mg qday. INR therapeutic. recheck tomorrow for stability. 4. Analgesia: OxyContin/oxycodone 5. Hypothyroidism: Synthroid 6. Acute Blood loss Anemia: Transfused 4/6. H/H has been stable 7. Yeast-skin: Nystatin powder 8. Advanced directives: full code 9. Estimated LOS: 11/26/17 11/20/17 10:09
--- NOTE | 2017-11-20 11:40 | RAD ---
INDICATION: Signs of infection and/or inflammation of the right lower extremity COMPARISON: None. TECHNIQUE: 3 views of the right foot and 3 views of the right ankle were obtained. FINDINGS: The visualized bones are diffusely demineralized. The bones are intact. There is no acute fracture or dislocation identified. Degenerative changes include mild sclerotic change of the articulating services of the ankle and tarsal joints as well as the tarsometatarsal joints. There is flexion deformity at all of the proximal interphalangeal joints with compensatory extension at the more proximal metatarsophalangeal joints. No definite fracture or dislocation is visualized. Mildly increased density overlying the subcutaneous tissues could be seen in the setting of chronic induration. IMPRESSION: DIFFUSE INCREASED DENSITY OVERLYING THE SUBCUTANEOUS TISSUES OF THE RIGHT FOOT AND ANKLE COULD BE SEEN IN THE SETTING OF CELLULITIS OR EDEMA DEPENDING ON THE CLINICAL PRESENTATION.
[2017-11-20] MEDS: Nystatin TOP POWDER* 15 GM BTL TOPICAL SCH ×2 (11:41→23:47)
[2017-11-20] MEDS: PTO: Diclofenac 1% GEL (NF) 100 GM TUBE TOPICAL PRN ×2 (11:41→23:11)
[2017-11-20] MEDS: Warfarin TAB(*) 7.5 MG PO SCH (17:14)
[2017-11-20] MEDS: Montelukast Sodium TAB* 10 MG PO SCH (20:21)
[2017-11-20] MEDS: Methocarbamol TAB* 500 MG PO PRN (23:44)
[2017-11-21] MEDS: Acetaminophen TAB* 325 MG PO PRN (02:28)
[2017-11-21] MEDS: oxyCODONE TAB* 5 MG TAB PO PRN ×4 (06:41→22:17)
[2017-11-21] MEDS: Levothyroxine TAB* 100 MCG TAB PO SCH (06:41)
[2017-11-21 06:50] LABS: INR 3.28 (0.77-1.02)
[2017-11-21] MEDS ORDERED: Al Hydrox/Mg Hydrox/Simet LIQ* 30 ML UDC PO PRN (09:26)
[2017-11-21] MEDS: MAGNESIUM GLUCONATE 500 MG PO SCH ×4 (09:28→20:19)
[2017-11-21] MEDS: Triamterene/HCTZ 37.5-25 MG* CAP PO SCH (09:29)
[2017-11-21] MEDS: Potassium Chlor TAB* 20 MEQ TAB.ER PO SCH ×4 (09:29→20:18)
[2017-11-21] MEDS: oxyCODONE SR TAB(*) 40 MG TAB.SR PO SCH ×2 (09:29→20:20)
[2017-11-21] MEDS: Cephalexin CAP* 500 MG PO SCH ×4 (09:29→20:19)
[2017-11-21] MEDS: Sertraline* 50 MG TAB PO SCH ×2 (09:29→20:21)
[2017-11-21] MEDS: Docusate CAP* 100 MG PO SCH ×2 (09:29→20:20)
[2017-11-21] MEDS: ESTROPIPATE 0.75 MG PO SCH (09:31)
[2017-11-21] MEDS: FLUTICASONE 50 MCG BOTH NARES SCH (09:31)
[2017-11-21] MEDS: Cetirizine* 10 MG TAB PO SCH (09:32)
[2017-11-21] MEDS: Tiotropium CAP.INH* CAP.INH/18 MCG (USE ORDER SET !) INH SCH (09:33)
[2017-11-21] MEDS: Dicyclomine CAP* 10 MG PO SCH ×3 (09:34→16:52)
[2017-11-21] MEDS: Mometasone/Formoter 200/5 MDI INH SCH ×2 (09:36→20:22)
--- NOTE | 2017-11-21 09:38 | PN ---
Progress Note Date of Service: 11/21/17 Note: QUENTIN STEWARD was visited. Nursing notes read and reviewed. Early this morning she experienced a burning sensation in her throat. She has never has this before. It was relieved with milk. She cannot think of anything unusual she ate yesterday or last night. No chest pain, shortness of breath or abdominal pain. + BM. Current Medications: Active Medications Generic Name Dose Route Start Last Admin Trade Name Freq PRN Reason Stop Dose Admin Acetaminophen 650 mg 11/12/17 11:56 11/21/17 02:28 Tylenol Tab* PO 650 mg Q6H PRN Administration FEVER/PAIN Al Hydrox/Mg Hydrox/Simethicone 30 ml 11/21/17 09:26 Maalox Plus* PO Q6H PRN INDIGESTION Albuterol 2 puff 11/13/17 15:32 Ventolin Hfa Inhaler* INH Q6H PRN SOB/WHEEZING Bisacodyl 10 mg 11/12/17 11:56 Dulcolax Supp* [place] DAILY PRN CONSTIPATION Cephalexin HCl 500 mg 11/15/17 09:00 11/20/17 20:17 Keflex Cap* PO 11/22/17 09:00 500 mg QID ZACH Administration Cetirizine HCl 10 mg 11/13/17 09:00 11/20/17 09:09 Zyrtec* PO 10 mg DAILY ZACH Administration Diclofenac Sodium 1 applic 11/13/17 15:33 11/20/17 23:11 Voltaren 1% Gel (Nf) TOPICAL 1 admin Q6H PRN Administration PAIN Protocol Dicyclomine HCl 10 mg 11/12/17 16:30 11/20/17 16:35 Bentyl Cap* PO 10 mg AC ZACH Administration Docusate Sodium 100 mg 11/12/17 21:00 11/20/17 20:22 Colace Cap* PO 100 mg BID ZACH Administration Estropipate 0.75 mg 11/15/17 09:00 11/20/17 09:19 Ogen(Nf) PO 0.75 mg DAILY ZACH Administration Fluticasone Propionate 2 spray 11/13/17 09:00 11/20/17 09:10 Flonase Nasal [place] 50mcg* BOTH NARES 2 spray DAILY ZACH Administration Levothyroxine Sodium 100 mcg 11/13/17 06:00 11/21/17 06:41 Synthroid Tab* PO 100 mcg DAILY@0600 ZACH Administration Magnesium Hydroxide 30 ml 11/12/17 11:56 Milk Of Magnesia Liq* PO Q6H PRN CONSTIPATION Methocarbamol 1,000 mg 11/12/17 15:43 11/20/17 23:44 Robaxin Tab* PO 1,000 mg Q6H PRN Administration SPASMS Mometasone Furoate/Formoterol Fumar 2 puff 11/12/17 21:00 11/20/17 20:23 Dulera 200/5 Mdi* INH 2 puff BID ZACH Administration Montelukast Sodium 10 mg 11/12/17 21:00 11/20/17 20:21 Singulair Tab* PO 10 mg BEDTIME ZACH Administration Pto: Magnesium 500 mg 11/13/17 17:00 11/20/17 20:21 Gluconate 500 Mg PO 500 mg QID ZACH Administration Nystatin 1 applic 11/15/17 21:00 11/20/17 23:47 Nystatin Top Powder* TOPICAL 1 applic BID ZACH Administration Ondansetron HCl 4 mg 11/13/17 07:46 11/20/17 09:22 Zofran Odt Tab* PO 4 mg Q6H PRN Administration NAUSEA Oxycodone HCl 40 mg 11/12/17 21:00 11/20/17 20:20 Oxycontin(*) PO 40 mg Q12H ZACH Administration Oxycodone HCl 10 mg 11/12/17 12:11 Roxycodone Tab* PO Q4H PRN PAIN - MODERATE TO SEVERE Oxycodone HCl 15 mg 11/12/17 12:13 11/21/17 06:41 Roxycodone Tab* PO 15 mg Q4H PRN Administration PAIN - SEVERE Pharmacy Profile Note 1 note 11/14/17 17:00 11/20/17 17:14 Coumadin Daily Reminder* FOLLOW UP 1 note 1700 ZACH Administration Potassium Chloride 20 meq 11/12/17 13:00 11/20/17 20:19 Klor Con Er Tab* PO 20 meq QID ZACH Administration Senna 2 tab 11/12/17 11:56 11/12/17 21:16 Senokot Tab* PO 2 tab BEDTIME PRN Administration CONSTIPATION Sertraline HCl 50 mg 11/12/17 21:00 11/20/17 20:19 Zoloft* PO 50 mg Q12H ZACH Administration Tiotropium [place] 1 cap 11/13/17 09:00 11/20/17 09:09 Spiriva Cap.Inh* INH 1 inh DAILY ZACH Administration Triamterene/HCTZ 1 cap 11/13/17 09:00 11/20/17 09:15 Dyazide Cap* PO 1 cap DAILY ZACH Administration Warfarin Sodium 5 mg 11/21/17 17:00 Coumadin Tab(*) PO DAILY@1700 [facility] Protocol Vital Signs: Vital Signs Temp Pulse Resp BP Pulse Ox 98.6 F 76 20 139/57 99 11/21/17 06:45 11/21/17 06:45 11/21/17 06:45 11/21/17 06:45 11/21/17 06:45 Lab Results: Laboratory Results - last 24 hr 11/21/17 06:13 INR (Anticoag Therapy) 3.28 H Exam: GEN: no acute distress. alert and appropriate LUNGS: Clear to auscultation bilaterally HEART: regular rate and rhythm ABDOMEN: soft, + bowel sounds, non-tender, non-distended EXTREMITIES: right knee in immobilizer. some pedal edema. Immobilizer and dressing removed with nursing. [place] are c/d/i. Noted decreasing swelling as DIONNE was loose and skin deflated. At proximal incision which was above immobilizer there is slight edema and erythema. No drainage. X-ray of right foot and ankle 11/20/17 shows degenerative changes and subcuatneous swelling. Assessment/Plan: 82yo woman s/p reimplantation of right TKR 1. Right TKA reimplant: PT/OT. f/u with Dr. Wynn as needed. He put her on Kelfex on 11/15/17 for a 7 day course, which should end tomorrow. He felt right foot hypersensitivity may be due to lack of weight bearing prior to surgery and readjustment. X-rays of right ankle and foot 11/20/17 show degenerative changes and no acute findings. 2. Asthma: Xyzal/Dulera/Albuterol HFA 3. DVT Prophylaxis: Decrease Coumadin to 5mg qday. INR may be supratherapeutic due to antibiotics. recheck tomorrow. 4. Analgesia: OxyContin/oxycodone 5. Hypothyroidism: Synthroid 6. Acute Blood loss Anemia: Transfused 11/12. H/H has been stable 7. Yeast-skin: Nystatin powder 8. Heartburn: I d/w pt stress of brother and surgery can cause stress ulcerations and often we prescribe GI ppx. She would just like something prn as it has never happened before. Maalox prn. If happens again may benefit from PPI. 9. Advanced directives: full code 10. Estimated LOS: 11/26/17 11/21/17 09:35
[2017-11-21] MEDS: Nystatin TOP POWDER* 15 GM BTL TOPICAL SCH ×2 (11:09→22:16)
[2017-11-21] MEDS: PTO: Diclofenac 1% GEL (NF) 100 GM TUBE TOPICAL PRN ×2 (11:09→22:19)
[2017-11-21] MEDS: Ondansetron ODT TAB* 4 MG PO PRN (16:57)
[2017-11-21] MEDS ORDERED: Warfarin TAB(*) 7.5 MG PO SCH (17:00)
[2017-11-21] MEDS: Warfarin TAB(*) 5 MG PO SCH (17:46)
[2017-11-21] MEDS: Montelukast Sodium TAB* 10 MG PO SCH (20:21)
[2017-11-22] MEDS: oxyCODONE TAB* 5 MG TAB PO PRN ×4 (05:34→23:40)
[2017-11-22] MEDS: Levothyroxine TAB* 100 MCG TAB PO SCH (05:34)
[2017-11-22 06:37] LABS: ABS Basophils 0.1 10^3/ul (0-0.2); ABS Eosinophils 0.4 10^3/ul (0-0.6); ABS Lymphocytes 1.8 10^3/ul (1.0-4.8); ABS Monocytes 0.6 10^3/ul (0-0.8); ABS Nucleated RBC 0 10^3/ul; Eosinophil % 5.8 % (0-6); Hematocrit 30 % (35-47); Hemoglobin 9.7 g/dl (12.0-16.0); Lymphocyte % 26.1 % (25-47); Mean Corpuscular HGB Conc 32 g/dl (31-36); Mean Corpuscular Hemoglobin 28 pg (27-31); Mean Corpuscular Volume 87 fL (80-97); Mean Platelet Volume 7.1 um3 (7.4-10.4); Nucleated Red Blood Cells % 0; Platelet Count 374 10^3/ul (150-450); Red Blood Count 3.47 10^6/ul (4.0-5.4); Red Cell Distribution Width 17 % (10.5-15); White Blood Count 6.8 10^3/ul (3.5-10.8)
[2017-11-22 06:43] LABS: INR 3.77 (0.77-1.02)
[2017-11-22 06:50] LABS: EGFR Non-African American 68.5 (>60)
[2017-11-22] MEDS: oxyCODONE SR TAB(*) 40 MG TAB.SR PO SCH ×2 (08:45→20:46)
[2017-11-22] MEDS: Potassium Chlor TAB* 20 MEQ TAB.ER PO SCH ×4 (08:46→20:46)
[2017-11-22] MEDS: Triamterene/HCTZ 37.5-25 MG* CAP PO SCH (08:46)
[2017-11-22] MEDS: Sertraline* 50 MG TAB PO SCH ×2 (08:46→20:46)
[2017-11-22] MEDS: Docusate CAP* 100 MG PO SCH ×2 (08:47→20:46)
[2017-11-22] MEDS: Dicyclomine CAP* 10 MG PO SCH ×3 (08:47→16:54)
[2017-11-22] MEDS: Cephalexin CAP* 500 MG PO SCH (08:47)
[2017-11-22] MEDS: Cetirizine* 10 MG TAB PO SCH (08:48)
[2017-11-22] MEDS: MAGNESIUM GLUCONATE 500 MG PO SCH ×4 (08:48→20:46)
[2017-11-22] MEDS: ESTROPIPATE 0.75 MG PO SCH (08:49)
[2017-11-22] MEDS: FLUTICASONE 50 MCG BOTH NARES SCH (08:51)
[2017-11-22] MEDS: Tiotropium CAP.INH* CAP.INH/18 MCG (USE ORDER SET !) INH SCH (08:52)
[2017-11-22] MEDS: Mometasone/Formoter 200/5 MDI INH SCH ×2 (08:53→22:49)
[2017-11-22] MEDS: Ondansetron ODT TAB* 4 MG PO PRN ×2 (08:57→18:12)
[2017-11-22] MEDS: Nystatin TOP POWDER* 15 GM BTL TOPICAL SCH ×2 (09:27→21:15)
[2017-11-22] MEDS: PTO: Diclofenac 1% GEL (NF) 100 GM TUBE TOPICAL PRN ×2 (09:28→21:16)
[2017-11-22] MEDS: Methocarbamol TAB* 500 MG PO PRN ×2 (12:11→20:25)
[2017-11-22] MEDS: Warfarin TAB(*) 5 MG PO SCH ×2 (16:55→18:57)
--- NOTE | 2017-11-22 17:03 | PN ---
Progress Note Date of Service: 11/22/17 Note: ZAIDA STEWARD was visited. Therapy notes read and reviewed. Zaida has few complaints although feels a little down today. INR rising. Current Medications: Active Medications Generic Name Dose Route Start Last Admin Trade Name Freq PRN Reason Stop Dose Admin Acetaminophen 650 mg 11/12/17 11:56 11/21/17 02:28 Tylenol Tab* PO 650 mg Q6H PRN Administration FEVER/PAIN Al Hydrox/Mg Hydrox/Simethicone 30 ml 11/21/17 09:26 Maalox Plus* PO Q6H PRN INDIGESTION Albuterol 2 puff 11/13/17 15:32 11/22/17 05:52 Ventolin Hfa Inhaler* INH 2 puff Q6H PRN Administration SOB/WHEEZING Bisacodyl 10 mg 11/12/17 11:56 Dulcolax Supp* [place] DAILY PRN CONSTIPATION Cetirizine HCl 10 mg 11/13/17 09:00 11/22/17 08:48 Zyrtec* PO 10 mg DAILY ZACH Administration Diclofenac Sodium 1 applic 11/13/17 15:33 11/22/17 09:28 Voltaren 1% Gel (Nf) TOPICAL 1 admin Q6H PRN Administration PAIN Protocol Dicyclomine HCl 10 mg 11/12/17 16:30 11/22/17 16:54 Bentyl Cap* PO 10 mg AC ZACH Administration Docusate Sodium 100 mg 11/12/17 21:00 11/22/17 08:47 Colace Cap* PO 100 mg BID ZACH Administration Estropipate 0.75 mg 11/15/17 09:00 11/22/17 08:49 Ogen(Nf) PO 0.75 mg DAILY ZACH Administration Fluticasone Propionate 2 spray 11/13/17 09:00 11/22/17 08:51 Flonase Nasal [place] 50mcg* BOTH NARES 2 spray DAILY ZACH Administration Levothyroxine Sodium 100 mcg 11/13/17 06:00 11/22/17 05:34 Synthroid Tab* PO 100 mcg DAILY@0600 ZACH Administration Magnesium Hydroxide 30 ml 11/12/17 11:56 Milk Of Magnesia Liq* PO Q6H PRN CONSTIPATION Methocarbamol 1,000 mg 11/12/17 15:43 11/22/17 12:11 Robaxin Tab* PO 1,000 mg Q6H PRN Administration SPASMS Mometasone Furoate/Formoterol Fumar 2 puff 11/12/17 21:00 11/22/17 08:53 Dulera 200/5 Mdi* INH 2 puff BID ZACH Administration Montelukast Sodium 10 mg 11/12/17 21:00 11/21/17 20:21 Singulair Tab* PO 10 mg BEDTIME ZACH Administration Pto: Magnesium 500 mg 11/13/17 17:00 11/22/17 16:56 Gluconate 500 Mg PO 500 mg QID ZACH Administration Nystatin 1 applic 11/15/17 21:00 11/22/17 09:27 Nystatin Top Powder* TOPICAL 1 applic BID ZACH Administration Ondansetron HCl 4 mg 11/13/17 07:46 11/22/17 08:57 Zofran Odt Tab* PO 4 mg Q6H PRN Administration NAUSEA Oxycodone HCl 40 mg 11/12/17 21:00 11/22/17 08:45 Oxycontin(*) PO 40 mg Q12H ZACH Administration Oxycodone HCl 10 mg 11/12/17 12:11 Roxycodone Tab* PO Q4H PRN PAIN - MODERATE TO SEVERE Oxycodone HCl 15 mg 11/12/17 12:13 11/22/17 15:13 Roxycodone Tab* PO 15 mg Q4H PRN Administration PAIN - SEVERE Pharmacy Profile Note 1 note 11/14/17 17:00 11/21/17 17:47 Coumadin Daily Reminder* FOLLOW UP 1 note 1700 ZACH Administration Potassium Chloride 20 meq 11/12/17 13:00 11/22/17 16:56 Klor Con Er Tab* PO 20 meq QID ZACH Administration Senna 2 tab 11/12/17 11:56 11/12/17 21:16 Senokot Tab* PO 2 tab BEDTIME PRN Administration CONSTIPATION Sertraline HCl 50 mg 11/12/17 21:00 11/22/17 08:46 Zoloft* PO 50 mg Q12H ZACH Administration Tiotropium [place] 1 cap 11/13/17 09:00 11/22/17 08:52 Spiriva Cap.Inh* INH 1 inh DAILY ZACH Administration Triamterene/HCTZ 1 cap 11/13/17 09:00 11/22/17 08:46 Dyazide Cap* PO 1 cap DAILY ZACH Administration Warfarin Sodium 5 mg 11/21/17 17:00 11/22/17 16:55 Coumadin Tab(*) PO 5 mg DAILY@1700 ZACH Administration Protocol Vital Signs: Vital Signs Temp Pulse Resp BP Pulse Ox 98.6 F 84 18 144/57 99 11/22/17 05:34 11/22/17 05:34 11/22/17 16:54 11/22/17 05:34 11/22/17 08:00 Lab Results: Laboratory Results - last 24 hr 11/22/17 11/22/17 11/22/17 06:12 06:12 06:12 WBC 6.8 RBC 3.47 L Hgb 9.7 L Hct 30 L MCV 87 MCH 28 MCHC 32 RDW 17 H Plt Count 374 MPV 7.1 L Neut % (Auto) 58.7 Lymph % (Auto) 26.1 [place] % (Auto) 8.5 H Eos % (Auto) 5.8 Baso % (Auto) 0.9 Absolute Neuts (auto) 4.0 Absolute Lymphs (auto) 1.8 Absolute Monos (auto) 0.6 Absolute Eos (auto) 0.4 Absolute Basos (auto) 0.1 Absolute Nucleated RBC 0 Nucleated RBC % 0 INR (Anticoag Therapy) 3.77 H Sodium 134 L Potassium 4.3 Chloride 101 Carbon Dioxide 24 Anion Gap 9 BUN 18 Creatinine 0.80 Est GFR ( Amer) 88.1 Est GFR (Non-Af Amer) 68.5 BUN/Creatinine Ratio 22.5 H Glucose 82 Calcium 9.0 Total Bilirubin 0.40 AST 15 ALT 3 L Alkaline Phosphatase 95 Total Protein 7.2 Albumin 3.5 Globulin 3.7 Albumin/Globulin Ratio 0.9 L Exam: LUNGS: Clear HEART: reg rhythm ABDOMEN: soft EXTREMITIES: right knee in immobilizer, wiggles toes. PPI Assessment/Plan: 1. Right TKA reimplant: PT/OT. f/u with Dr. Wynn as needed. He put her on Kelfex on 11/15/17 for a 7 day course, which should end today 2. Asthma: Xyzal/Dulera/Albuterol HFA 3. DVT Prophylaxis: Decrease Coumadin to 5mg qday. INR may be supratherapeutic due to antibiotics. recheck tomorrow. 4. Analgesia: OxyContin/oxycodone 5. Hypothyroidism: Synthroid 6. Acute Blood loss Anemia: Transfused 11/12. H/H has been stable 7. Yeast-skin: Nystatin powder 8. Heartburn: Maalox prn. If happens again may benefit from PPI. 9. Advanced directives: full code 10. Estimated LOS: 11/26/17 11/22/17 17:03
[2017-11-22] MEDS: Acetaminophen TAB* 325 MG PO PRN (19:48)
[2017-11-22] MEDS: Montelukast Sodium TAB* 10 MG PO SCH (20:46)
[2017-11-23] MEDS: oxyCODONE TAB* 5 MG TAB PO PRN ×4 (03:55→23:21)
[2017-11-23] MEDS: Levothyroxine TAB* 100 MCG TAB PO SCH (06:24)
[2017-11-23 06:47] LABS: INR 3.63 (0.77-1.02)
[2017-11-23] MEDS: Dicyclomine CAP* 10 MG PO SCH ×3 (07:38→17:09)
[2017-11-23] MEDS: Cetirizine* 10 MG TAB PO SCH (07:39)
[2017-11-23] MEDS: Docusate CAP* 100 MG PO SCH ×2 (07:39→20:21)
[2017-11-23] MEDS: MAGNESIUM GLUCONATE 500 MG PO SCH ×4 (07:40→20:21)
[2017-11-23] MEDS: FLUTICASONE 50 MCG BOTH NARES SCH (07:40)
[2017-11-23] MEDS: ESTROPIPATE 0.75 MG PO SCH (07:40)
[2017-11-23] MEDS: Mometasone/Formoter 200/5 MDI INH SCH ×2 (07:41→21:38)
[2017-11-23] MEDS: oxyCODONE SR TAB(*) 40 MG TAB.SR PO SCH ×2 (07:42→20:21)
[2017-11-23] MEDS: Tiotropium CAP.INH* CAP.INH/18 MCG (USE ORDER SET !) INH SCH (07:43)
[2017-11-23] MEDS: Sertraline* 50 MG TAB PO SCH ×2 (07:43→20:21)
[2017-11-23] MEDS: Potassium Chlor TAB* 20 MEQ TAB.ER PO SCH ×4 (07:43→20:20)
[2017-11-23] MEDS: Triamterene/HCTZ 37.5-25 MG* CAP PO SCH (07:44)
[2017-11-23] MEDS: Ondansetron ODT TAB* 4 MG PO PRN ×2 (07:56→18:14)
[2017-11-23] MEDS: PTO: Diclofenac 1% GEL (NF) 100 GM TUBE TOPICAL PRN ×2 (09:36→21:40)
[2017-11-23] MEDS: Nystatin TOP POWDER* 15 GM BTL TOPICAL SCH ×2 (09:38→21:37)
--- NOTE | 2017-11-23 12:42 | PMRUTEAM ---
PMRU: Team Meeting Current Status: Nursing: Current Status Skin Deviations [Right Knee] Incision Skin Deviation Description [ brace and cryounit intact Right Knee] Bladder Current Status continent on the commode Bowel Current Status continent on the commode, BM meds Medication Current Status complient Physical Therapy: Current Status Bed Mobility Assistance Not Tested Transfer Moblility Assistance Supervision Transfer/Bed Mobility Rolling Walker Recommended Devices Ambulation Assistance Supervision Ambulation Assistive Devices Rolling Walker Number of Feet Patient 42' and 38' Ambulated Ambulation Comment step to type gait pattern R knee immobilizer in place aat. Stairs Assistance Not Tested Stairs Recommended Devices Two Rails Number of Stairs 5 Occupational Therapy: Current Status Upper Body Dressing Supervision Lower Body Dressing Total Assist Bathing Min Assist Bathing Progress Assist for buttocks and B feet. Toileting Min Assist Toileting Progress Min A for posterior meagan area hygiene. Pt able to wash anterior meagan area. Toilet Transfer Supervision Toilet Transfer Progress FWW Shower Transfer Progress Has not occurred. Eating Ind with Adaptive Equip Rec Therapy: Current Status Summary of Assessment and RT assessment complete and pt. is aware of RT Clinical Impression services. Pt. has been social and interactive - open to activities while on the unit. Treatment Goals Pt. will engage in leisure activities while on the unit. Treatment Plan Provide RT services and encourage involvement. Social Work: Current Status Discharge Plan return home with home care svs and family support Potential for Family Training pt's daughter is scheduled for family training Wed 11/24 Anticipated Discharge Home Destination Discharge With home care svs and family support Nutrition: Current Status Monitoring pt w/adequate (over) weight, eating satisfactorily w/regular diet. Daily BMs; no c/o constipation. Serum K 4.3 w/daily supplementation. 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 No further specific intervention anticipated. Appears to meeting goals as outlined below. Goals: Physical Therapy: Initial Goals Bed Mobility Assistance Independent Transfer Mobility Assistance Independent Transfer/Bed Mobility Rolling Walker Recommended Devices Ambulation Independent Ambulation Recommended Devices Rolling Walker Ambulation Distance 150 Physical Therapy: Updated Goals Bed Mobility Assistance Independent Transfer Mobility Assistance Independent Transfer/Bed Mobility Rolling Walker Recommended Devices Ambulation Assistance Independent Ambulation Assistive Devices None Ambulation Distance (ft) 150 Occupational Therapy: Initial Goals Goals to be Completed in (Days 21 ) Upper Body Bathing Routine Independent Lower Body Bathing Routine Modified Independent with Lower Body Bathing Assistive Long handled sponge Devices Comment Upper Body Dressing Routine Independent Lower Body Dressing Routine Moderate Assist Toilet Hygeine and Clothing Modified Independent with Management Routine Toilet Transfer Routine Modified Independent with Step-In Shower Transfer Supervision/Set Up Routine Functional Transfers for ADL Modified Independent with Grooming Routine Independent Feeding Routine Modified Independent with Nursing: Goals Bladder Goal walking to the bathroom Bowel Goal walking to the bathroom Medication Goal independent @ home Nutrition: Goals Intervention Goals 1. adequate po intake to support post-op healing and maintenance of lean body mass without add'l wt gain 2. maintain bowel regularity w/o constipation or diarrhea Social Work: Goals Discharge Plan return home with home care svs and family support Potential for Family Training pt's daughter is scheduled for family training Wed 11/24 Anticipated Discharge Home Destination Discharge With home care svs and family support Care Plan: Care Plan ADL's - Improve/Maintain Start: 11/13/17 11:21 Freq: DAILY@1200 Status: Active Target: Protocol: Activity Type Activity Date Activity User E-Sign Co-Sign Detail Recorded Client Recorded Date Recorded By Document 11/23/17 12:02 [id number] 11/23/17 12:02 [id number] 11/23/17 12:02 PMRU Outcome: ADL's/ADL Transfers Orders/Interventions Occupational Therapy Evaluation & Treatment Device No Patient to receive OT 5x/wk for 60-120 Therex min/day Self Care Management Group Therapy UE/LE ADL's with Assist Yes: Mod I UB, Mod A LB ADL Transfers with Assist Yes Toileting: Transfers,Clothing Management Yes ,Hygeine w/Assist Light Kitchen/Laundry w/Assist No Progression Toward Outcome/Goals Progressing Outcome/Goals Met Pt making gains with endurance (ambulation to bathroom) and dynamic standing balance (meagan area hygiene). She is also able to wash under her abdominal fold and hernia today for the first time without assistance. Coping/Psych-Improve/Maintain Start: 11/12/17 18:40 Freq: DAILY@1200 Status: Active Target: Protocol: Activity Type Activity Date Activity User E-Sign Co-Sign Detail Recorded Client Recorded Date Recorded By Document 11/23/17 00:26 [id number] 11/23/17 00:26 [id number] 11/23/17 00:26 PMRU Outcome: Coping/Psychosocial Coping Outcome/Goals Verbalization of Acceptance of Rehab Admit Verbalization of Sense of Control Over Health Status Psychosocial Outcome/Goals Maintain/ Improve Emotional Health Cooperate/ Participate in Plan Progression Toward Outcome/Goals - Progressing Coping Progression Toward Outcome/Goals - Progressing Psychosocial DVT Prophylaxis- Improve/Maintain Start: 11/12/17 18:40 Freq: DAILY@1200 Status: Active Target: Protocol: Activity Type Activity Date Activity User E-Sign Co-Sign Detail Recorded Client Recorded Date Recorded By Document 11/23/17 00:26 [id number] 11/23/17 00:26 [id number] 11/23/17 00:26 PMRU Outcome: DVT Prophylaxis Outcome/Goals Remains Free of DVT Progression Toward Outcome/Goals Progressing Discharge Planning - Improve/Maintain Start: 11/12/17 18:40 Freq: DAILY@1200 Status: Active Target: Protocol: Activity Type Activity Date Activity User E-Sign Co-Sign Detail Recorded Client Recorded Date Recorded By Document 11/21/17 19:43 [id number] 11/21/17 19:43 [id number] 11/21/17 19:43 PMRU Outcome: Discharge Planning Update Patient Family No Outcome/Goals Demonstrates Understanding of Discharge Plan Progression Toward Outcome/Goals Progressing Education-Improve/Maintain Start: 11/12/17 18:40 Freq: DAILY@1200 Status: Active Target: Protocol: Activity Type Activity Date Activity User E-Sign Co-Sign Detail Recorded Client Recorded Date Recorded By Document 11/23/17 00:26 [id number] [email or web address] 11/23/17 00:26 [id number] 11/23/17 00:26 PMRU Outcome: Education Outcome/Goals Demonstrate/ Verbalize Understanding of Written Discharge Instructions Encourage Questions Progression Toward Outcome/Goals Progressing Mobility- Improve/Maintain Start: 11/12/17 18:40 Freq: DAILY@1200 Status: Active Target: Protocol: Activity Type Activity Date Activity User E-Sign Co-Sign Detail Recorded Client Recorded Date Recorded By Document 11/22/17 11:58 [id number] 11/22/17 11:58 [id number] 11/22/17 11:58 PMRU Outcome: Mobility Physical Therapy Evaluation and Yes Treatment Activity OOB with Assistance Yes WBAT Yes Device Yes Assistance Yes Patient to be seen 5x/wk for 60-120 min/ Therex day for: Mobility Training Gait Training W/C Mobility Balance Outcome/Goals Maintain/ Achieve Baseline Mobility Status Improve Mobility Status Demonstrates Proper Use of Assistive Devices Free from Complications of Immobility Progression Toward Outcome/Goals Progressing Bed Mobility Yes: independent Transfers Yes: independent with RW and GB Gait x ft Yes: independent with RW and GB 150' Up/Down Stairs Yes: 5 with B rails Pain/Comfort- Improve/Maintain Start: 11/12/17 18:40 Freq: DAILY@1200 Status: Active Target: Protocol: Activity Type Activity Date Activity User E-Sign Co-Sign Detail Recorded Client Recorded Date Recorded By Document 11/23/17 00:26 [id number] 11/23/17 00:26 [id number] 11/23/17 00:26 PMRU Outcome: Pain/Comfort Outcome/Goals Demonstrates Knowledge and Use of Available Comfort Measures Progression Toward Outcome/Goals Progressing Outcome/Goals Met Comment cryo unit in place, pain medication plan in place Safety- Improve/Maintain Start: 11/12/17 18:40 Freq: DAILY@1200 Status: Active Target: Protocol: Activity Type Activity Date Activity User E-Sign Co-Sign Detail Recorded Client Recorded Date Recorded By Document 11/23/17 00:26 [id number] 11/23/17 00:26 [id number] 11/23/17 00:26 PMRU Outcome: Safety Outcome/Goals Remain Free of Injury or Harm Cooperates with Safety Measures for Least Restrictive Environment Progression Toward Outcome/Goals Progressing Skin- Improve/Maintain Start: 11/12/17 18:40 Freq: DAILY@1200 Status: Active Target: Protocol: Activity Type Activity Date Activity User E-Sign Co-Sign Detail Recorded Client Recorded Date Recorded By Document 11/23/17 00:26 [id number] 11/23/17 00:26 [id number] 11/23/17 00:26 PMRU Outcome: Skin Skin Risk Level Medium Skin Orders Dressing Change Outcome/Goals Maintain/ Improve Skin Intergrity Surgical Incisions Healing Progression Toward Outcome/Goals Progressing Medicine Note: Length of Stay: 3 days Anticipated Discharge Destination: Home Tentative Discharge Date: 11/26/17 Discharged to: Home
[2017-11-23] MEDS: Acetaminophen TAB* 325 MG PO PRN (15:54)
--- NOTE | 2017-11-23 16:59 | PN ---
Progress Note Date of Service: 11/23/17 Note: ZAIDA STEWARD was visited. Therapy notes read and reviewed. Zaida was discussed in interdisiciplinary team rounds. She has been making gains. Overall doing ok. Current Medications: Active Medications Generic Name Dose Route Start Last Admin Trade Name Freq PRN Reason Stop Dose Admin Acetaminophen 650 mg 11/12/17 11:56 11/23/17 15:54 Tylenol Tab* PO 650 mg Q6H PRN Administration FEVER/PAIN Al Hydrox/Mg Hydrox/Simethicone 30 ml 11/21/17 09:26 Maalox Plus* PO Q6H PRN INDIGESTION Albuterol 2 puff 11/13/17 15:32 11/22/17 05:52 Ventolin Hfa Inhaler* INH 2 puff Q6H PRN Administration SOB/WHEEZING Bisacodyl 10 mg 11/12/17 11:56 Dulcolax Supp* [place] DAILY PRN CONSTIPATION Cetirizine HCl 10 mg 11/13/17 09:00 11/23/17 07:39 Zyrtec* PO 10 mg DAILY ZACH Administration Diclofenac Sodium 1 applic 11/13/17 15:33 11/23/17 09:36 Voltaren 1% Gel (Nf) TOPICAL 1 applic Q6H PRN Administration PAIN Protocol Dicyclomine HCl 10 mg 11/12/17 16:30 11/23/17 12:12 Bentyl Cap* PO 10 mg AC ZACH Administration Docusate Sodium 100 mg 11/12/17 21:00 11/23/17 07:39 Colace Cap* PO 100 mg BID ZACH Administration Estropipate 0.75 mg 11/15/17 09:00 11/23/17 07:40 Ogen(Nf) PO 0.75 mg DAILY ZACH Administration Fluticasone Propionate 2 spray 11/13/17 09:00 11/23/17 07:40 Flonase Nasal [place] 50mcg* BOTH NARES 2 spray DAILY ZACH Administration Levothyroxine Sodium 100 mcg 11/13/17 06:00 11/23/17 06:24 Synthroid Tab* PO 100 mcg DAILY@0600 ZACH Administration Magnesium Hydroxide 30 ml 11/12/17 11:56 Milk Of Magnesia Liq* PO Q6H PRN CONSTIPATION Methocarbamol 1,000 mg 11/12/17 15:43 11/22/17 20:25 Robaxin Tab* PO 1,000 mg Q6H PRN Administration SPASMS Mometasone Furoate/Formoterol Fumar 2 puff 11/12/17 21:00 11/23/17 07:41 Dulera 200/5 Mdi* INH 2 puff BID ZACH Administration Montelukast Sodium 10 mg 11/12/17 21:00 11/22/17 20:46 Singulair Tab* PO 10 mg BEDTIME ZACH Administration Pto: Magnesium 500 mg 11/13/17 17:00 11/23/17 13:03 Gluconate 500 Mg PO 500 mg QID ZACH Administration Nystatin 1 applic 11/15/17 21:00 11/23/17 09:38 Nystatin Top Powder* TOPICAL 1 applic BID ZACH Administration Ondansetron HCl 4 mg 11/13/17 07:46 11/23/17 07:56 Zofran Odt Tab* PO 4 mg Q6H PRN Administration NAUSEA Oxycodone HCl 40 mg 11/12/17 21:00 11/23/17 07:42 Oxycontin(*) PO 40 mg Q12H ZACH Administration Oxycodone HCl 10 mg 11/12/17 12:11 Roxycodone Tab* PO Q4H PRN PAIN - MODERATE TO SEVERE Oxycodone HCl 15 mg 11/12/17 12:13 11/23/17 12:12 Roxycodone Tab* PO 15 mg Q4H PRN Administration PAIN - SEVERE Pharmacy Profile Note 1 note 11/14/17 17:00 11/22/17 17:41 Coumadin Daily Reminder* FOLLOW UP Not Given 1700 [facility] Potassium Chloride 20 meq 11/12/17 13:00 11/23/17 13:03 Klor Con Er Tab* PO 20 meq QID ZACH Administration Senna 2 tab 11/12/17 11:56 11/12/17 21:16 Senokot Tab* PO 2 tab BEDTIME PRN Administration CONSTIPATION Sertraline HCl 50 mg 11/12/17 21:00 11/23/17 07:43 Zoloft* PO 50 mg Q12H ZACH Administration Tiotropium [place] 1 cap 11/13/17 09:00 11/23/17 07:43 Spiriva Cap.Inh* INH 1 inh DAILY ZACH Administration Triamterene/HCTZ 1 cap 11/13/17 09:00 11/23/17 07:44 Dyazide Cap* PO 1 cap DAILY ZACH Administration Vital Signs: Vital Signs Temp Pulse Resp BP Pulse Ox 98.4 F 79 21 139/61 100 11/23/17 16:18 11/23/17 16:18 11/23/17 16:18 11/23/17 16:18 11/23/17 16:18 Lab Results: Laboratory Results - last 24 hr 11/23/17 06:02 INR (Anticoag Therapy) 3.63 H Exam: LUNGS: Clear HEART: reg rhythm ABDOMEN: soft EXTREMITIES: right knee in immobilizer, wiggles toes. PPI Assessment/Plan: 1. Right TKA reimplant: PT/OT. f/u with Dr. Wynn as needed. He put her on Kelfex on 11/15/17 for a 7 day course, which should end today 2. Asthma: Xyzal/Dulera/Albuterol HFA 3. DVT Prophylaxis: Decrease Coumadin to 3mg qday. INR may be supratherapeutic due to antibiotics. recheck tomorrow. 4. Analgesia: OxyContin/oxycodone 5. Hypothyroidism: Synthroid 6. Acute Blood loss Anemia: Transfused /. H/H has been stable 7. Yeast-skin: Nystatin powder 8. Heartburn: Maalox prn. If happens again may benefit from PPI. 9. Advanced directives: full code 10. Estimated LOS: 11/26/17 11/23/17 16:59
[2017-11-23] MEDS ORDERED: Warfarin TAB(*) 3 MG PO ONE (17:00)
[2017-11-23] MEDS: Montelukast Sodium TAB* 10 MG PO SCH (20:21)
[2017-11-23] MEDS: Methocarbamol TAB* 500 MG PO PRN (23:21)
[2017-11-24] MEDS: oxyCODONE TAB* 5 MG TAB PO PRN ×4 (03:40→19:48)
[2017-11-24] MEDS: Levothyroxine TAB* 100 MCG TAB PO SCH (05:35)
[2017-11-24 06:13] LABS: INR 2.82 (0.77-1.02)
[2017-11-24] MEDS: Dicyclomine CAP* 10 MG PO SCH ×3 (07:26→16:26)
[2017-11-24] MEDS: Cetirizine* 10 MG TAB PO SCH (07:27)
[2017-11-24] MEDS: ESTROPIPATE 0.75 MG PO SCH (07:27)
[2017-11-24] MEDS: Docusate CAP* 100 MG PO SCH ×2 (07:27→20:05)
[2017-11-24] MEDS: MAGNESIUM GLUCONATE 500 MG PO SCH ×4 (07:28→20:06)
[2017-11-24] MEDS: FLUTICASONE 50 MCG BOTH NARES SCH (07:28)
[2017-11-24] MEDS: Mometasone/Formoter 200/5 MDI INH SCH ×2 (07:29→20:10)
[2017-11-24] MEDS: oxyCODONE SR TAB(*) 40 MG TAB.SR PO SCH ×2 (07:29→20:05)
[2017-11-24] MEDS: Potassium Chlor TAB* 20 MEQ TAB.ER PO SCH ×4 (07:30→20:06)
[2017-11-24] MEDS: Sertraline* 50 MG TAB PO SCH ×2 (07:30→20:06)
[2017-11-24] MEDS: Tiotropium CAP.INH* CAP.INH/18 MCG (USE ORDER SET !) INH SCH (07:31)
[2017-11-24] MEDS: Ondansetron ODT TAB* 4 MG PO PRN ×2 (07:32→13:48)
[2017-11-24] MEDS: Triamterene/HCTZ 37.5-25 MG* CAP PO SCH (07:32)
[2017-11-24] MEDS: Nystatin TOP POWDER* 15 GM BTL TOPICAL SCH ×2 (09:26→22:04)
[2017-11-24] MEDS: PTO: Diclofenac 1% GEL (NF) 100 GM TUBE TOPICAL PRN ×2 (09:27→22:04)
[2017-11-24] MEDS: Warfarin TAB(*) 6 MG PO SCH (17:21)
[2017-11-24] MEDS: Montelukast Sodium TAB* 10 MG PO SCH (20:06)
--- NOTE | 2017-11-24 21:29 | PN ---
Progress Note Date of Service: 11/24/17 Note: QUENTIN STEWARD was visited. Therapy notes read and reviewed. Her knee wound looks clean She feels like she is doing better. INR has fallen. Current Medications: Active Medications Generic Name Dose Route Start Last Admin Trade Name Freq PRN Reason Stop Dose Admin Acetaminophen 650 mg 11/12/17 11:56 11/23/17 15:54 Tylenol Tab* PO 650 mg Q6H PRN Administration FEVER/PAIN Al Hydrox/Mg Hydrox/Simethicone 30 ml 11/21/17 09:26 Maalox Plus* PO Q6H PRN INDIGESTION Albuterol 2 puff 11/13/17 15:32 11/22/17 05:52 Ventolin Hfa Inhaler* INH 2 puff Q6H PRN Administration SOB/WHEEZING Bisacodyl 10 mg 11/12/17 11:56 Dulcolax Supp* [place] DAILY PRN CONSTIPATION Cetirizine HCl 10 mg 11/13/17 09:00 11/24/17 07:27 Zyrtec* PO 10 mg DAILY ZACH Administration Diclofenac Sodium 1 applic 11/13/17 15:33 11/24/17 09:27 Voltaren 1% Gel (Nf) TOPICAL 1 applic Q6H PRN Administration PAIN Protocol Dicyclomine HCl 10 mg 11/12/17 16:30 11/24/17 16:26 Bentyl Cap* PO 10 mg AC ZACH Administration Docusate Sodium 100 mg 11/12/17 21:00 11/24/17 20:05 Colace Cap* PO 100 mg BID ZACH Administration Estropipate 0.75 mg 11/15/17 09:00 11/24/17 07:27 Ogen(Nf) PO 0.75 mg DAILY ZACH Administration Fluticasone Propionate 2 spray 11/13/17 09:00 11/24/17 07:28 Flonase Nasal [place] 50mcg* BOTH NARES 2 spray DAILY ZACH Administration Levothyroxine Sodium 100 mcg 11/13/17 06:00 11/24/17 05:35 Synthroid Tab* PO 100 mcg DAILY@0600 ZACH Administration Magnesium Hydroxide 30 ml 11/12/17 11:56 Milk Of Magnesia Liq* PO Q6H PRN CONSTIPATION Methocarbamol 1,000 mg 11/12/17 15:43 04/17/18 23:21 Robaxin Tab* PO 1,000 mg Q6H PRN Administration SPASMS Mometasone Furoate/Formoterol Fumar 2 puff 11/12/17 21:00 11/24/17 20:10 Dulera 200/5 Mdi* INH 2 puff BID ZACH Administration Montelukast Sodium 10 mg 11/12/17 21:00 11/24/17 20:06 Singulair Tab* PO 10 mg BEDTIME ZACH Administration Pto: Magnesium 500 mg 11/13/17 17:00 11/24/17 20:06 Gluconate 500 Mg PO 500 mg QID ZACH Administration Nystatin 1 applic 11/15/17 21:00 11/24/17 09:26 Nystatin Top Powder* TOPICAL 1 applic BID ZACH Administration Ondansetron HCl 4 mg 11/13/17 07:46 11/24/17 13:48 Zofran Odt Tab* PO 4 mg Q6H PRN Administration NAUSEA Oxycodone HCl 40 mg 11/12/17 21:00 11/24/17 20:05 Oxycontin(*) PO 40 mg Q12H ZACH Administration Oxycodone HCl 10 mg 11/12/17 12:11 Roxycodone Tab* PO Q4H PRN PAIN - MODERATE TO SEVERE Oxycodone HCl 15 mg 11/12/17 12:13 11/24/17 19:48 Roxycodone Tab* PO 15 mg Q4H PRN Administration PAIN - SEVERE Pharmacy Profile Note 1 note 11/14/17 17:00 11/24/17 17:22 Coumadin Daily Reminder* FOLLOW UP 1 note 1700 ZACH Administration Potassium Chloride 20 meq 11/12/17 13:00 11/24/17 20:06 Klor Con Er Tab* PO 20 meq QID ZACH Administration Senna 2 tab 11/12/17 11:56 11/12/17 21:16 Senokot Tab* PO 2 tab BEDTIME PRN Administration CONSTIPATION Sertraline HCl 50 mg 11/12/17 21:00 11/24/17 20:06 Zoloft* PO 50 mg Q12H ZACH Administration Tiotropium [place] 1 cap 11/13/17 09:00 11/24/17 07:31 Spiriva Cap.Inh* INH 1 inh DAILY ZACH Administration Triamterene/HCTZ 1 cap 11/13/17 09:00 11/24/17 07:32 Dyazide Cap* PO 1 cap DAILY ZACH Administration Warfarin Sodium 6 mg 11/24/17 17:00 11/24/17 17:21 Coumadin Tab(*) PO 6 mg DAILY@1700 ZACH Administration Protocol Vital Signs: Vital Signs Temp Pulse Resp BP Pulse Ox 97.6 F 80 18 139/59 100 11/24/17 15:35 11/24/17 15:35 11/24/17 20:05 11/24/17 15:35 11/24/17 18:33 Lab Results: Laboratory Results - last 24 hr 11/24/17 05:53 INR (Anticoag Therapy) 2.82 H Exam: LUNGS: Clear HEART: reg rhythm ABDOMEN: soft EXTREMITIES: right knee in immobilizer, wiggles toes. PPI Assessment/Plan: 1. Right TKA reimplant: PT/OT. f/u with Dr. Wynn as needed. He put her on Kelfex on 11/15/17 for a 7 day course, which should end today 2. Asthma: Xyzal/Dulera/Albuterol HFA 3. DVT Prophylaxis: Increase Coumadin to 6 mg qday. INR may be supratherapeutic due to antibiotics. recheck tomorrow. 4. Analgesia: OxyContin/oxycodone 5. Hypothyroidism: Synthroid 6. Acute Blood loss Anemia: Transfused /6. H/H has been stable 7. Yeast-skin: Nystatin powder 8. Heartburn: Maalox prn. If happens again may benefit from PPI. 9. Advanced directives: full code 10. Estimated LOS: 11/26/17 11/24/17 21:29
[2017-11-25] MEDS: Methocarbamol TAB* 500 MG PO PRN ×2 (00:16→23:36)
[2017-11-25] MEDS: oxyCODONE TAB* 5 MG TAB PO PRN ×5 (00:17→23:37)
[2017-11-25] MEDS: Acetaminophen TAB* 325 MG PO PRN ×2 (03:32→16:25)
[2017-11-25] MEDS: Levothyroxine TAB* 100 MCG TAB PO SCH (06:20)
[2017-11-25] MEDS: Ondansetron ODT TAB* 4 MG PO PRN ×2 (06:28→17:19)
[2017-11-25] MEDS: Dicyclomine CAP* 10 MG PO SCH ×3 (08:22→16:20)
[2017-11-25] MEDS: Cetirizine* 10 MG TAB PO SCH (08:24)
[2017-11-25] MEDS: Docusate CAP* 100 MG PO SCH ×2 (08:24→20:25)
[2017-11-25] MEDS: ESTROPIPATE 0.75 MG PO SCH (08:24)
[2017-11-25] MEDS: MAGNESIUM GLUCONATE 500 MG PO SCH ×4 (08:25→20:27)
[2017-11-25] MEDS: FLUTICASONE 50 MCG BOTH NARES SCH (08:25)
[2017-11-25] MEDS: Mometasone/Formoter 200/5 MDI INH SCH ×2 (08:26→22:05)
[2017-11-25] MEDS: Nystatin TOP POWDER* 15 GM BTL TOPICAL SCH ×2 (08:27→22:05)
[2017-11-25] MEDS: oxyCODONE SR TAB(*) 40 MG TAB.SR PO SCH ×2 (08:27→20:25)
[2017-11-25] MEDS: Potassium Chlor TAB* 20 MEQ TAB.ER PO SCH ×4 (08:28→20:24)
[2017-11-25] MEDS: Tiotropium CAP.INH* CAP.INH/18 MCG (USE ORDER SET !) INH SCH (08:29)
[2017-11-25] MEDS: Sertraline* 50 MG TAB PO SCH ×2 (08:29→20:24)
[2017-11-25] MEDS: Triamterene/HCTZ 37.5-25 MG* CAP PO SCH (08:30)
[2017-11-25] MEDS: PTO: Diclofenac 1% GEL (NF) 100 GM TUBE TOPICAL PRN (08:33)
--- NOTE | 2017-11-25 13:00 | PN ---
Progress Note - Progress Note Date of Service: 11/25/17 Note: POD # 15. Doing well and pain is under control. INR is 2.82 Right knee surgery is dry and edges are satisfactory. All christina and sutures removed and steri strips applied. She is OK to wash the surgery with soap and water and OK to betadine solution or neosporin, telfa. Plans: Office with Dr. Wynn in 4 weeks and as needed.
[2017-11-25] MEDS: Warfarin TAB(*) 6 MG PO SCH (17:13)
--- NOTE | 2017-11-25 17:57 | PN ---
Progress Note Date of Service: 11/25/17 Note: QUENTIN STEWARD was visited. Therapy notes read and reviewed. Patient's christina were removed by Dr. Wynn. She looks good and is ready for discharge. She should have enough pain meds at home. Instructed her to call pain clinic if she needs more. Current Medications: Active Medications Generic Name Dose Route Start Last Admin Trade Name Freq PRN Reason Stop Dose Admin Acetaminophen 650 mg 11/12/17 11:56 11/25/17 16:25 Tylenol Tab* PO 650 mg Q6H PRN Administration FEVER/PAIN Al Hydrox/Mg Hydrox/Simethicone 30 ml 11/21/17 09:26 Maalox Plus* PO Q6H PRN INDIGESTION Albuterol 2 puff 11/13/17 15:32 11/22/17 05:52 Ventolin Hfa Inhaler* INH 2 puff Q6H PRN Administration SOB/WHEEZING Bisacodyl 10 mg 11/12/17 11:56 Dulcolax Supp* [place] DAILY PRN CONSTIPATION Cetirizine HCl 10 mg 11/13/17 09:00 11/25/17 08:24 Zyrtec* PO 10 mg DAILY ZACH Administration Diclofenac Sodium 1 applic 11/13/17 15:33 11/25/17 08:33 Voltaren 1% Gel (Nf) TOPICAL 1 applic Q6H PRN Administration PAIN Protocol Dicyclomine HCl 10 mg 11/12/17 16:30 11/25/17 16:20 Bentyl Cap* PO 10 mg AC ZACH Administration Docusate Sodium 100 mg 11/12/17 21:00 11/25/17 08:24 Colace Cap* PO 100 mg BID ZACH Administration Estropipate 0.75 mg 11/15/17 09:00 11/25/17 08:24 Ogen(Nf) PO 0.75 mg DAILY ZACH Administration Fluticasone Propionate 2 spray 11/13/17 09:00 11/25/17 08:25 Flonase Nasal [place] 50mcg* BOTH NARES 2 spray DAILY ZACH Administration Levothyroxine Sodium 100 mcg 11/13/17 06:00 11/25/17 06:20 Synthroid Tab* PO 100 mcg DAILY@0600 ZACH Administration Magnesium Hydroxide 30 ml 11/12/17 11:56 Milk Of Magnesia Liq* PO Q6H PRN CONSTIPATION Methocarbamol 1,000 mg 11/12/17 15:43 11/25/17 00:16 Robaxin Tab* PO 1,000 mg Q6H PRN Administration SPASMS Mometasone Furoate/Formoterol Fumar 2 puff 11/12/17 21:00 11/25/17 08:26 Dulera 200/5 Mdi* INH 2 puff BID ZACH Administration Montelukast Sodium 10 mg 11/12/17 21:00 11/24/17 20:06 Singulair Tab* PO 10 mg BEDTIME ZACH Administration Pto: Magnesium 500 mg 11/13/17 17:00 11/25/17 16:21 Gluconate 500 Mg PO 500 mg QID ZACH Administration Nystatin 1 applic 11/15/17 21:00 11/25/17 08:27 Nystatin Top Powder* TOPICAL 1 applic BID ZACH Administration Ondansetron HCl 4 mg 11/13/17 07:46 11/25/17 17:19 Zofran Odt Tab* PO 4 mg Q6H PRN Administration NAUSEA Oxycodone HCl 40 mg 11/12/17 21:00 11/25/17 08:27 Oxycontin(*) PO 40 mg Q12H ZACH Administration Oxycodone HCl 10 mg 11/12/17 12:11 Roxycodone Tab* PO Q4H PRN PAIN - MODERATE TO SEVERE Oxycodone HCl 15 mg 11/12/17 12:13 11/25/17 17:13 Roxycodone Tab* PO 15 mg Q4H PRN Administration PAIN - SEVERE Pharmacy Profile Note 1 note 11/14/17 17:00 11/25/17 17:21 Coumadin Daily Reminder* FOLLOW UP 1 note 1700 ZACH Administration Potassium Chloride 20 meq 11/12/17 13:00 11/25/17 16:21 Klor Con Er Tab* PO 20 meq QID ZACH Administration Senna 2 tab 11/12/17 11:56 11/12/17 21:16 Senokot Tab* PO 2 tab BEDTIME PRN Administration CONSTIPATION Sertraline HCl 50 mg 11/12/17 21:00 11/25/17 08:29 Zoloft* PO 50 mg Q12H ZACH Administration Tiotropium [place] 1 cap 11/13/17 09:00 11/25/17 08:29 Spiriva Cap.Inh* INH 1 inh DAILY ZACH Administration Triamterene/HCTZ 1 cap 11/13/17 09:00 11/25/17 08:30 Dyazide Cap* PO 1 cap DAILY ZACH Administration Warfarin Sodium 6 mg 11/24/17 17:00 11/25/17 17:13 Coumadin Tab(*) PO 6 mg DAILY@1700 ZACH Administration Protocol Vital Signs: Vital Signs Temp Pulse Resp BP Pulse Ox 98.2 F 77 18 120/51 97 11/25/17 16:17 11/25/17 16:17 11/25/17 17:21 11/25/17 16:17 11/25/17 17:43 Exam: LUNGS: Clear HEART: reg rhythm ABDOMEN: soft EXTREMITIES: right knee in immobilizer. Wound looks clean. PPI Assessment/Plan: 1. Right TKA reimplant: PT/OT. f/u with Dr. Wynn 2. Asthma: Xyzal/Dulera/Albuterol HFA 3. DVT Prophylaxis: Increased Coumadin to 6 mg qday. 4. Analgesia: OxyContin/oxycodone 5. Hypothyroidism: Synthroid 6. Acute Blood loss Anemia: Transfused 4/6. H/H has been stable 7. Yeast-skin: Nystatin powder 8. Heartburn: Maalox prn. If happens again may benefit from PPI. 9. Advanced directives: full code 10. Disposition: Home tomorrow 11/25/17 17:58 11/25/17 17:59
[2017-11-25] MEDS: Montelukast Sodium TAB* 10 MG PO SCH (20:24)
[2017-11-26] MEDS: oxyCODONE TAB* 5 MG TAB PO PRN (03:26)
[2017-11-26 06:38] LABS: INR 2.76 (0.77-1.02)
[2017-11-26] MEDS: Acetaminophen TAB* 325 MG PO PRN (06:38)
[2017-11-26] MEDS: Levothyroxine TAB* 100 MCG TAB PO SCH (06:39)
[2017-11-26 06:51] VITALS: BP 142/52
[2017-11-26] MEDS: Ondansetron ODT TAB* 4 MG PO PRN (08:24)
[2017-11-26] MEDS: Dicyclomine CAP* 10 MG PO SCH ×2 (08:24→11:50)
[2017-11-26] MEDS: Cetirizine* 10 MG TAB PO SCH (08:25)
[2017-11-26] MEDS: FLUTICASONE 50 MCG BOTH NARES SCH (08:26)
[2017-11-26] MEDS: ESTROPIPATE 0.75 MG PO SCH (08:26)
[2017-11-26] MEDS: Docusate CAP* 100 MG PO SCH (08:26)
[2017-11-26] MEDS: MAGNESIUM GLUCONATE 500 MG PO SCH ×2 (08:27→11:50)
[2017-11-26] MEDS: Mometasone/Formoter 200/5 MDI INH SCH (08:27)
[2017-11-26] MEDS: Nystatin TOP POWDER* 15 GM BTL TOPICAL SCH (08:27)
[2017-11-26] MEDS: oxyCODONE SR TAB(*) 40 MG TAB.SR PO SCH (08:28)
[2017-11-26] MEDS: Potassium Chlor TAB* 20 MEQ TAB.ER PO SCH ×2 (08:29→11:50)
[2017-11-26] MEDS: Sertraline* 50 MG TAB PO SCH (08:30)
[2017-11-26] MEDS: Tiotropium CAP.INH* CAP.INH/18 MCG (USE ORDER SET !) INH SCH (08:30)
[2017-11-26] MEDS: Triamterene/HCTZ 37.5-25 MG* CAP PO SCH (08:31)
[2017-11-26] MEDS: PTO: Diclofenac 1% GEL (NF) 100 GM TUBE TOPICAL PRN (08:36)
--- NOTE | 2017-11-26 11:00 | PN ---
Progress Note Date of Service: 11/26/17 Note: QUENTIN STEWARD was visited. Nursing and therapy notes read and reviewed. No new concerns. No chest pain, shortness of breath or abdominal pain. Family training completed. Current Medications: Active Medications Generic Name Dose Route Start Last Admin Trade Name Freq PRN Reason Stop Dose Admin Acetaminophen 650 mg 11/12/17 11:56 11/26/17 06:38 Tylenol Tab* PO 650 mg Q6H PRN Administration FEVER/PAIN Al Hydrox/Mg Hydrox/Simethicone 30 ml 11/21/17 09:26 Maalox Plus* PO Q6H PRN INDIGESTION Albuterol 2 puff 11/13/17 15:32 11/22/17 05:52 Ventolin Hfa Inhaler* INH 2 puff Q6H PRN Administration SOB/WHEEZING Bisacodyl 10 mg 11/12/17 11:56 Dulcolax Supp* [place] DAILY PRN CONSTIPATION Cetirizine HCl 10 mg 11/13/17 09:00 11/26/17 08:25 Zyrtec* PO 10 mg DAILY ZACH Administration Diclofenac Sodium 1 applic 11/13/17 15:33 11/26/17 08:36 Voltaren 1% Gel (Nf) TOPICAL 1 applic Q6H PRN Administration PAIN Protocol Dicyclomine HCl 10 mg 11/12/17 16:30 11/26/17 08:24 Bentyl Cap* PO 10 mg AC ZACH Administration Docusate Sodium 100 mg 11/12/17 21:00 11/26/17 08:26 Colace Cap* PO 100 mg BID ZACH Administration Estropipate 0.75 mg 11/15/17 09:00 11/26/17 08:26 Ogen(Nf) PO 0.75 mg DAILY ZACH Administration Fluticasone Propionate 2 spray 11/13/17 09:00 11/26/17 08:26 Flonase Nasal [place] 50mcg* BOTH NARES 2 spray DAILY ZACH Administration Levothyroxine Sodium 100 mcg 11/13/17 06:00 11/26/17 06:39 Synthroid Tab* PO 100 mcg DAILY@0600 ZACH Administration Magnesium Hydroxide 30 ml 11/12/17 11:56 Milk Of Magnesia Liq* PO Q6H PRN CONSTIPATION Methocarbamol 1,000 mg 11/12/17 15:43 11/25/17 23:36 Robaxin Tab* PO 1,000 mg Q6H PRN Administration SPASMS Mometasone Furoate/Formoterol Fumar 2 puff 11/12/17 21:00 11/26/17 08:27 Dulera 200/5 Mdi* INH 2 puff BID ZACH Administration Montelukast Sodium 10 mg 11/12/17 21:00 11/25/17 20:24 Singulair Tab* PO 10 mg BEDTIME ZACH Administration Pto: Magnesium 500 mg 11/13/17 17:00 11/26/17 08:27 Gluconate 500 Mg PO 500 mg QID ZACH Administration Nystatin 1 applic 11/15/17 21:00 11/26/17 08:27 Nystatin Top Powder* TOPICAL 1 applic BID ZACH Administration Ondansetron HCl 4 mg 11/13/17 07:46 11/26/17 08:24 Zofran Odt Tab* PO 4 mg Q6H PRN Administration NAUSEA Oxycodone HCl 40 mg 11/12/17 21:00 11/26/17 08:28 Oxycontin(*) PO 40 mg Q12H ZACH Administration Oxycodone HCl 10 mg 11/12/17 12:11 Roxycodone Tab* PO Q4H PRN PAIN - MODERATE TO SEVERE Oxycodone HCl 15 mg 11/12/17 12:13 11/26/17 03:26 Roxycodone Tab* PO 15 mg Q4H PRN Administration PAIN - SEVERE Pharmacy Profile Note 1 note 11/14/17 17:00 11/25/17 17:21 Coumadin Daily Reminder* FOLLOW UP 1 note 1700 ZACH Administration Potassium Chloride 20 meq 11/12/17 13:00 11/26/17 08:29 Klor Con Er Tab* PO 20 meq QID ZACH Administration Senna 2 tab 11/12/17 11:56 11/12/17 21:16 Senokot Tab* PO 2 tab BEDTIME PRN Administration CONSTIPATION Sertraline HCl 50 mg 11/12/17 21:00 11/26/17 08:30 Zoloft* PO 50 mg Q12H ZACH Administration Tiotropium [place] 1 cap 11/13/17 09:00 11/26/17 08:30 Spiriva Cap.Inh* INH 1 inh DAILY ZACH Administration Triamterene/HCTZ 1 cap 11/13/17 09:00 11/26/17 08:31 Dyazide Cap* PO 1 cap DAILY ZACH Administration Warfarin Sodium 6 mg 11/24/17 17:00 11/25/17 17:13 Coumadin Tab(*) PO 6 mg DAILY@1700 ZACH Administration Protocol Vital Signs: Vital Signs Temp Pulse Resp BP Pulse Ox 98.7 F 73 16 142/52 100 11/26/17 06:50 11/26/17 06:50 11/26/17 08:28 11/26/17 06:50 11/26/17 06:50 Lab Results: Laboratory Results - last 24 hr 11/26/17 06:16 INR (Anticoag Therapy) 2.76 H Exam: GEN: no acute distress. alert and appropriate LUNGS: Clear to auscultation bilaterally HEART: regular rate and rhythm ABDOMEN: soft, + bowel sounds, non-tender, non-distended EXTREMITIES: right knee in immobilizer. X-ray of right foot and ankle 11/20/17 shows degenerative changes and subcuatneous swelling. Assessment/Plan: 1. Right TKA reimplant: f/u with Dr. Wynn in 4 week or prn 2. Asthma: Xyzal/Dulera/Albuterol HFA 3. DVT Prophylaxis: Continue Coumadin 6 mg qday. INR Q mon/thurs with results to Dr. Medellin 4. Analgesia: OxyContin/oxycodone 5. Hypothyroidism: Synthroid 6. Acute Blood loss Anemia: Transfused 4/6. H/H has been stable 7. Yeast-skin: Nystatin powder 8. Advanced directives: full code 9. Disposition: discharge home today. 11/26/17 10:59
--- NOTE | 2017-11-26 12:52 | DS ---
CC: Dr. Wynn; Dr. Grisel Medellin REHABILITATION DISCHARGE: DATE OF ADMISSION: 11/12/17 DATE OF DISCHARGE: 11/26/17 ORTHOPEDIC SURGEON: Román Wynn MD. PRIMARY CARE PROVIDER: Grisel Medellin MD. REASON FOR ADMISSION: Status post right total knee replacement reimplantation. HISTORY OF PRESENT ILLNESS: For full details of acute hospitalization leading up to her admission, please see the note dictated by Dr. Josue on 11/12/17. HOSPITAL COURSE: During her time on the [facility], her pain continued to be controlled using OxyContin and oxycodone. If she needs additional refills of this medication, it should be done through the pain clinic. She often uses methocarbamol for muscle spasms as well. Unfortunately, her brother and only sibling during her hospitalization. She missed the due to being on the rehabilitation unit. She did have some time of grieving, however. She had noted that as she began to mobilize, increased sensitivity in her right foot. X-rays of the right foot and ankle did not show any fracture, but she does have some underlying arthritis. She was followed by Dr. Wynn while here and completed a course of Keflex for concerns of possible impending cellulitis at the surgical site. He removed christina on 11/25/17 and plans to followup with her in 4 weeks or sooner if needed. She is to continue using Coumadin for DVT prophylaxis. Today her INR is 2.76 and she is taking 6 mg of Coumadin per day. She will have INR checked on Wednesday and by [facility] with results going to Dr. Grisel Medellin. She participated well with physical therapy and at the time of discharge was independent with bed mobility, transfers with a rolling walker, ambulating with a rolling walker with a knee immobilizer on at all times. For stair climbing, she can go up and down a stair or curb with contact guard. She has a ramp up to her home. She is to keep her knee brace on at all times until cleared by Dr. Wynn. She has been advised to get up and walk short distances or stand about every 30 minutes at least throughout the day. She also participated well with occupational therapy. At the time discharge she was independent with eating with dentures. She needs assistance to wash her feet and left buttock and set up for the remainder of her bathing. She needs assistance to put on and off her socks and shoes and lower body clothing. She is independent toileting with her walker and commode as well as toilet transfers. She has assistance from her son and daughter for home management and cooking as well as with bathing and dressing. They were trained to assist her. She will also need some assistance to apply nystatin powder under her breasts and abdominal folds and cream on her shoulders and right ankle as needed. DISCHARGE CONDITION: Fair. DISCHARGE DISPOSITION: Home with family support. FOLLOWUP: 1. A referral has been sent to visiting nurse services for nursing, home care, blood work every Wednesday and with INR and home therapies. 2. She will follow up with Dr. Grisel Medellin. 3. Follow up with Dr. Wynn on 12/13/17 at 1:15 a.m. DISCHARGE MEDICATIONS: 1. Albuterol 2 puffs q. 6 hours p.r.n. 2. Diclofenac gel 1% topically every 6 hours p.r.n. 3. Dicyclomine 10 mg p.o. before meals. 4. Spiriva one cap inhaled daily. 5. Warfarin 6 mg daily or as directed. 6. Acetaminophen 650 mg q. 6 hours p.r.n. 7. Nystatin topical powder b.i.d. p.r.n. 8. Zofran 4 mg q. 6 hours p.r.n. nausea. 9. Senna 2 tablets q.h.s. p.r.n. constipation. 10. Docusate 100 p.o. b.i.d. p.r.n. constipation. 11. Singulair 10 mg q. p.m. 12. Magnesium gluconate 500 mg b.i.d. 13. Oxycodone 10 mg q. 4 hours p.r.n. pain. 14. Levothyroxine 100 mcg p.o. q.a.m. 15. Estropipate 0.75 mg q.a.m. 16. Flonase 2 sprays both nares q.a.m. 17. Zoloft 50 mg b.i.d. 18. OxyContin 40 mg b.i.d. 19. Potassium chloride 20 mEq 4 times a day. 20. Methocarbamol 1000 mg 4 times a day p.r.n. 21. Xyzal 5 mg q. a.m. 22. Dyazide 37.5/25 one p.o. q.a.m. 23. Multivitamin daily. 24. Dulera 200/5 two puffs b.i.d. [id number]/[facility] #: [id number] [facility]
== END 2017-11-26 13:00 | disposition home health service (06) | DRG 560 ==
LOC: PMRU 11:17
PROVIDERS: ADMIT Physical Medicine & Rehabilitation; ATTEND Physical Medicine & Rehabilitation
PROC: F07Z5ZZ Bed Mobility Treatment (ICD-10-PCS; principal; 2017-11-12)
PROC: F07Z9ZZ Gait Training/Functional Ambulation Treatment (ICD-10-PCS; 2017-11-12)
PROC: F07Z8ZZ Transfer Training Treatment (ICD-10-PCS; 2017-11-12)
PROC: F08Z0ZZ Bathing/Showering Techniques Treatment (ICD-10-PCS; 2017-11-12)
PROC: F08Z1ZZ Dressing Techniques Treatment (ICD-10-PCS; 2017-11-12)
PROC: F08Z3ZZ Feeding/Eating Treatment (ICD-10-PCS; 2017-11-12)
DX: Z47.1 Aftercare following joint replacement surgery (principal); D62 Acute posthemorrhagic anemia; Z96.651 Presence of right artificial knee joint; K43.9 Ventral hernia without obstruction or gangrene; M54.9 Dorsalgia, unspecified; E03.9 Hypothyroidism, unspecified; J45.909 Unspecified asthma, uncomplicated; I10 Essential (primary) hypertension; F41.8 Other specified anxiety disorders; B37.2 Candidiasis of skin and nail; G62.9 Polyneuropathy, unspecified; Z79.01 Long term (current) use of anticoagulants; Z79.891 Long term (current) use of opiate analgesic; Z79.899 Other long term (current) drug therapy; Z88.0 Allergy status to penicillin
CPT/HCPCS: 36415; 80053; 85025; 85610; 94640; A9270-GY; J1650

== ENCOUNTER 2017-12-10 18:30 | Emergency (ER) | payer MEDICARE ==
[2017-12-10] MEDS ORDERED: NS 0.9% 1000 ML* 1,000 ML IV ONE (18:59)
[2017-12-10] MEDS ORDERED: diPHENhydraMINE IV* 50 MG/ML 1 ml VIAL (BENADRYL) IV ONE (19:00)
[2017-12-10] MEDS ORDERED: HYDROmorphone INJ* 2 MG/ML CARPUJECT SYRINGE IV SLOW PU ONE (19:00)
[2017-12-10 19:44] LABS: ABS Basophils 0.1 10^3/ul (0-0.2); ABS Eosinophils 0.4 10^3/ul (0-0.6); ABS Lymphocytes 1.8 10^3/ul (1.0-4.8); ABS Monocytes 0.8 10^3/ul (0-0.8); ABS Neutrophils 5.8 10^3/ul (1.5-7.7); ABS Nucleated RBC 0 10^3/ul; Eosinophil % 4.2 % (0-6); Hematocrit 32 % (35-47); Hemoglobin 10.6 g/dl (12.0-16.0); Lymphocyte % 20.1 % (25-47); Mean Corpuscular HGB Conc 33 g/dl (31-36); Mean Corpuscular Hemoglobin 28 pg (27-31); Mean Corpuscular Volume 83 fL (80-97); Mean Platelet Volume 7.7 um3 (7.4-10.4); Nucleated Red Blood Cells % 0; Platelet Count 356 10^3/ul (150-450); Red Blood Count 3.85 10^6/ul (4.0-5.4); Red Cell Distribution Width 16 % (10.5-15); White Blood Count 8.7 10^3/ul (3.5-10.8)
[2017-12-10 19:50] LABS: INR 1.67 (0.77-1.02)
[2017-12-10 20:02] LABS: EGFR Non-African American 62.2 (>60)
[2017-12-10] MEDS ORDERED: Potassium Chlor TAB* 20 MEQ TAB.ER PO ONE (20:26)
[2017-12-10 20:41] VITALS: BP 166/88
--- NOTE | 2017-12-10 20:41 | RAD ---
CLINICAL HISTORY: Diffuse abdominal pain COMPARISON: CT dated March 31, 2017 TECHNIQUE: Multiple contiguous axial CT scans were obtained of the abdomen and pelvis, without intravenous contrast enhancement. Coronal and sagittal multiplanar reformations are submitted for review. Oral contrast was not administered. FINDINGS: The study is limited by the lack of intravenous contrast. This limits evaluation of the solid organs and vasculature. LUNG BASES: The lung bases are clear. LIVER: The liver is normal in shape, size, contour, and attenuation. BILE DUCTS: There is no intrahepatic or extrahepatic biliary dilatation. GALLBLADDER: The gallbladder is normal, without pericholecystic inflammatory change. PANCREAS: The pancreas is normal, without mass or ductal dilatation. SPLEEN: Normal in size and appearance. UPPER GI TRACT: Evaluation of the gastrointestinal tract is limited by incomplete gastric distention. The upper GI tract is unremarkable. SMALL BOWEL AND MESENTERY: The small bowel is normal in contour, course, and caliber. There is no obstruction or dilatation. COLON: The colon is normal in contour, course, caliber. There is no pericolonic inflammatory change. There is large amount of stool within the colon. ADRENALS: Normal bilaterally. KIDNEYS: There is horizontal deviation of the axis of the right kidney. There is bilateral hydroureter without appreciable nephrolithiasis. BLADDER: The bladder is markedly distended and is smooth in contour. PELVIC ORGANS: The pelvic organs are not visualized. AORTA: There is calcific atherosclerotic disease of the abdominal aorta and its branches, without aneurysmal dilatation IVC: There is dystrophic calcification along the IVC, stable from the previous examination. LYMPH NODES: There is no lymphadenopathy by size criteria. ABDOMINAL WALL: There is a large ventral hernia containing the majority of small bowel and transverse colon. BONES AND SOFT TISSUES: There is a scoliotic curvature of the spine. Degenerative changes are noted. There is diffuse osteopenia. OTHER: None IMPRESSION: 1. LARGE VENTRAL HERNIA CONTAINING MUCH OF THE SMALL BOWEL AND TRANSVERSE COLON. 2. NO OBSTRUCTION. 3. LARGE AMOUNT OF STOOL WITHIN THE COLON. 4. MILD BILATERAL HYDROURETER WITHOUT APPRECIABLE NEPHROLITHIASIS.
[2017-12-10] MEDS ORDERED: Al Hydrox/Mg Hydrox/Simet LIQ* 30 ML UDC ONE (20:42)
[2017-12-10] MEDS ORDERED: Al Hydrox/Mg Hydrox/Simet LIQ* 30 ML UDC PO ONE (20:48)
--- NOTE | 2017-12-10 21:22 | ED ---
Aria Barajas Emily, scribed for Sumanth Walden MD on 12/10/17 at 1900 . Abdominal Pain/Female - HPI Summary HPI Summary: This patient is an 82 year old F BIBA to [facility] accompanied by family with a chief complaint of diffuse abd pain that began earlier today. The patient rates the pain 9/10 in severity. Symptoms aggravated by nothing. Symptoms alleviated by nothing. Patient reports nausea, very large bowel movement (at 1700), and spasms in R leg (that began upon R knee replacement in November 2017). Pt reports missing her dose of pain medication today. Pt reports experiencing similar symptoms previously with low potassium levels. - History of Current Complaint Chief Complaint: EDAbdPain Stated Complaint: ABD PAIN Time Seen by Provider: 12/10/17 18:48 Hx Obtained From: Patient Onset/Duration: Sudden Onset, Lasting Hours, Still Present Timing: Constant Severity Initially: Severe Severity Currently: Severe Pain Intensity: 9 Pain Scale Used: 0-10 Numeric Location: Diffuse Character: Cramping Aggravating Factor(s): Nothing Alleviating Factor(s): Nothing Associated Signs and Symptoms: Positive: Other: - Positive nausea, very large bowel movement (at 1700), and spasms in R leg (that began upon R knee replacement in November 2017 Allergies/Adverse Reactions: Allergies Allergy/AdvReac Type Severity Reaction Status Date / Time Iodinated Contrast- Oral and Allergy Hives/Diff. Verified 11/10/17 12:11 IV Dye Breathing/I tching iodine Allergy ANAPHYLACTIC Verified 11/10/17 12:11 SHOCK Penicillins Allergy Hives/Diff. Verified 11/10/17 12:11 Breathing/I tching Adhesive Tape AdvReac Rash Verified 11/10/17 12:11 ciprofloxacin [From Cipro] AdvReac Vomiting Verified 11/11/17 14:03 erythromycin base AdvReac Vomiting Verified 11/11/17 14:03 Sulfa (Sulfonamide AdvReac Nausea Verified 11/11/17 14:02 Antibiotics) tetracycline AdvReac Nausea Verified 11/11/17 14:03 CT CONTRAST Allergy Severe HIVES/DIFFICULTY Uncoded 11/10/17 12:11 BREATHING PMH/Surg Hx/FS Hx/Imm Hx Previously Healthy: No Endocrine/Hematology History: Reports: Hx Thyroid Disease, Hx Anemia Denies: Hx Diabetes Cardiovascular History: Reports: Hx Angina, Hx Deep Vein Thrombosis, Hx Embolism , Hx Hypertension, Other Cardiovascular Problems/Disorders Denies: Hx Coronary Artery Disease, Hx Myocardial Infarction, Hx Pacemaker/ ICD Respiratory History: Reports: Hx Asthma, Hx Pneumonia, Hx Pulmonary Embolism - 2011, Hx Seasonal Allergies, Other Respiratory Problems/Disorders - pneumonia GI History: Reports: Hx Hiatal Hernia, Other GI Disorders - hernia repair x3 Denies: Hx Gastroesophageal Reflux Disease, Hx Jaundice History: Reports: Other Problems/Disorders - per H+P CKD Denies: Hx Renal Disease Musculoskeletal History: Reports: Hx Arthritis, Hx Back Problems - chronic low back pain, Hx Gout, Hx Orthopedic Injury - fx left shoulder, Hx Scoliosis, Other Musculoskeletal History - bilateral knee replacement, lower right leg cellulitis Sensory History: Reports: Hx Cataracts Denies: Hx Contacts or Glasses, Hx Hearing Aid Opthamlomology History: Reports: Hx Cataracts Denies: Hx Contacts or Glasses Neurological History: Reports: Hx Nerve Disease - "stocking feet" tremors, Other Neuro Impairments/Disorders - spinal stenosis - pain clinic patient Psychiatric History: Reports: Hx Anxiety, Hx Depression Denies: Hx Panic Disorder - Surgical History Surgery Procedure, Year, and Place: Appendectomy. L knee scope. lumbar discectomy 30 yrs ago. Abdominal Obstruction/Hernia Repair with Mesh syr 2013 - hernia repair x3 and replacement of infected mesh. Hysterectomy. right tkr [facility]. left TKR 08/23 [facility]. right macular hole repair syr. Bilateral cataract [facility]. Revision right total knee secondary to infection 2017 Hx Anesthesia Reactions: No Infectious Disease History: No Infectious Disease History: Reports: Hx of Known/Suspected MRSA - see above, History Other Infectious Disease Denies: Traveled Outside the [place] in Last 30 Days - Family History Known Family History: Positive: Hypertension - Social History Occupation: Retired Lives: With Family Alcohol Use: Occasionally Hx Substance Use: No Substance Use Type: Reports: None Hx Tobacco Use: No Smoking Status (MU): Never Smoked Tobacco Have You Smoked in the Last Year: No Review of Systems Positive: Abdominal Pain, Nausea, Other - Positive large bowel movement Positive: Other - Positive R knee muscle spasms All Other Systems Reviewed And Are Negative: Yes Physical Exam - Summary Physical Exam Summary: Appearance: Well appearing, moderate distress due to pain Skin: warm, dry, reflects adequate perfusion Head/face: normal Eyes: EOMI, REGIS ENT: normal Neck: supple, non-tender Respiratory: CTA, breath sounds present Cardiovascular: RRR, pulses symmetrical Abdomen: Large surgical scars. Large, soft hernia. Fullness in RUQ. Diffuse pain , worse in the RUQ without rebound or guarding Bowel Sounds: diminished Musculoskeletal: normal, strength/ROM intact Neuro: normal, sensory motor intact, A&Ox3 Triage Information Reviewed: Yes Vital Signs On Initial Exam: Initial Vitals Temp Pulse Resp BP Pulse Ox 98.2 F 90 22 135/66 97 12/10/17 18:48 12/10/17 18:48 12/10/17 18:48 12/10/17 18:48 12/10/17 18:48 Vital Signs Reviewed: Yes Diagnostics - Vital Signs Vital Signs Temp Pulse Resp BP Pulse Ox 12/10/17 18:48 98.2 F 90 22 135/66 97 - Laboratory Lab Results: Lab Results 12/10/17 12/10/17 12/10/17 Range/Units 19:37 19:37 19:37 WBC 8.7 (3.5-10.8) 10^3/ul RBC 3.85 L (4.0-5.4) 10^6/ul Hgb 10.6 L (12.0-16.0) g/dl Hct 32 L (35-47) % MCV 83 (80-97) fL MCH 28 (27-31) pg MCHC 33 (31-36) g/dl RDW 16 H (10.5-15) % Plt Count 356 (150-450) 10^3/ul MPV 7.7 (7.4-10.4) um3 Neut % (Auto) 66.2 (38-83) % Lymph % (Auto) 20.1 L (25-47) % Fallon % (Auto) 8.9 H (0-7) % Eos % (Auto) 4.2 (0-6) % Baso % (Auto) 0.6 (0-2) % Absolute Neuts (auto) 5.8 (1.5-7.7) 10^3/ul Absolute Lymphs (auto) 1.8 (1.0-4.8) 10^3/ul Absolute Monos (auto) 0.8 (0-0.8) 10^3/ul Absolute Eos (auto) 0.4 (0-0.6) 10^3/ul Absolute Basos (auto) 0.1 (0-0.2) 10^3/ul Absolute Nucleated RBC 0 10^3/ul Nucleated RBC % 0 INR (Anticoag Therapy) 1.67 H (0.77-1.02) Sodium 133 L (139-145) mmol/L Potassium 3.2 L (3.5-5.0) mmol/L Chloride 96 L (101-111) mmol/L Carbon Dioxide 24 (22-32) mmol/L Anion Gap 13 H (2-11) mmol/L BUN 22 (6-24) mg/dL Creatinine 0.87 (0.51-0.95) mg/dL Est GFR ( Amer) 80.0 (>60) Est GFR (Non-Af Amer) 62.2 (>60) BUN/Creatinine Ratio 25.3 H (8-20) Glucose 89 (70-100) mg/dL Lactic Acid (0.5-2.0) mmol/L Calcium 9.2 (8.6-10.3) mg/dL Total Bilirubin 0.30 (0.2-1.0) mg/dL AST 19 (13-39) U/L ALT 5 L (7-52) U/L Alkaline Phosphatase 102 (34-104) U/L Troponin I 0.00 (<0.04) ng/mL C-Reactive Protein 14.64 H (< 5.00) mg/L Total Protein 8.0 (6.4-8.9) g/dL Albumin 3.7 (3.2-5.2) g/dL Globulin 4.3 H (2-4) g/dL Albumin/Globulin Ratio 0.9 L (1-3) Lipase 93 H (11.0-82.0) U/L 12/10/17 Range/Units 19:37 WBC (3.5-10.8) 10^3/ul RBC (4.0-5.4) 10^6/ul Hgb (12.0-16.0) g/dl Hct (35-47) % MCV (80-97) fL MCH (27-31) pg MCHC (31-36) g/dl RDW (10.5-15) % Plt Count (150-450) 10^3/ul MPV (7.4-10.4) um3 Neut % (Auto) (38-83) % Lymph % (Auto) (25-47) % Fallon % (Auto) (0-7) % Eos % (Auto) (0-6) % Baso % (Auto) (0-2) % Absolute Neuts (auto) (1.5-7.7) 10^3/ul Absolute Lymphs (auto) (1.0-4.8) 10^3/ul Absolute Monos (auto) (0-0.8) 10^3/ul Absolute Eos (auto) (0-0.6) 10^3/ul Absolute Basos (auto) (0-0.2) 10^3/ul Absolute Nucleated RBC 10^3/ul Nucleated RBC % INR (Anticoag Therapy) (0.77-1.02) Sodium (139-145) mmol/L Potassium (3.5-5.0) mmol/L Chloride (101-111) mmol/L Carbon Dioxide (22-32) mmol/L Anion Gap (2-11) mmol/L BUN (6-24) mg/dL Creatinine (0.51-0.95) mg/dL Est GFR ( Amer) (>60) Est GFR (Non-Af Amer) (>60) BUN/Creatinine Ratio (8-20) Glucose (70-100) mg/dL Lactic Acid 1.8 (0.5-2.0) mmol/L Calcium (8.6-10.3) mg/dL Total Bilirubin (0.2-1.0) mg/dL AST (13-39) U/L ALT (7-52) U/L Alkaline Phosphatase (34-104) U/L Troponin I (<0.04) ng/mL C-Reactive Protein (< 5.00) mg/L Total Protein (6.4-8.9) g/dL Albumin (3.2-5.2) g/dL Globulin (2-4) g/dL Albumin/Globulin Ratio (1-3) Lipase (11.0-82.0) U/L Result Diagrams: 12/10/17 19:37 12/10/17 19:37 Lab Statement: Any lab studies that have been ordered have been reviewed, and results considered in the medical decision making process. - CT Abdomen/Pelvis CT CT Interpretation Completed By: Radiologist - Abdomen/Pelvis CT reveals, per radiologist, 1. LARGE VENTRAL HERNIA CONTAINING MUCH OF THE SMALL BOWEL AND TRANSVERSE COLON. 2. NO OBSTRUCTION. 3. LARGE AMOUNT OF STOOL WITHIN THE COLON. 4. MILD BILATERAL HYDROURETER WITHOUT APPRECIABLE NEPHROLITHIASIS. ED physician has reviewed this radiology report. - EKG 1955 Cardiac Rate: NL EKG Rhythm: Sinus Rhythm - [address] Segment: Non-Specific EKG Interpretation: Nml axis. Prolonged QTC at 5 15 milliseconds Re-Evaluation - Re-Evaluation First Eval Re-Evaluation Time: 20:45 Change: Improved Comment: Pt is now passing some stool Abdominal Pain Fem Course/Dx - Course Course Of Treatment: Patient on chronic opiates for her knee. She had immense crampy abdominal pain and has been having small hard stools until this afternoon. She did have a large bowel movement prior to her CT scan today shows significant constipation. She had another bowel movement here and was given an enema. She had relief with treatment of her pain. She will be placed on MiraLAX, Dulcolax suppositories. She will discuss with her regular physician about prescribing Relistor for opiate-induced constipation on Wednesday. Also encouraged his home use of enemas. - Diagnoses Differential Diagnosis: Positive: Other - Small bowel obstruction, gallbladder disease, kidney stone, constipation, opiate-induced constipation Provider Diagnoses: Therapeutic opioid induced constipation, Generalized abdominal pain, Status post right knee replacement Discharge - Sign-Out/Discharge Documenting (check all that apply): Discharge/Admit/Transfer - Discharge home - Discharge Plan Condition: Good Disposition: HOME Prescriptions: Bisacodyl SUPP* [Dulcolax Supp*] 10 mg PO BID #10 supp Polyethylene Glycol 3350 BTL* [Miralax] 17 gm PO TID #1 btl Patient Education Materials: Constipation (ED) Referrals: Grisel Medellin MD [Primary Care Provider] - Additional Instructions: Natural fruit juices may help. Drink lots of fluids. Talk to your doctor on Wednesday about prescribing Relistor other medication for opiate related constipation. Home enemas may help. Return with fever, increased pain, worse or other concerns as discussed - Billing Disposition and Condition Condition: GOOD Disposition: HOME The documentation as recorded by the Aria laureano Emily accurately reflects the service I personally performed and the decisions made by , Sumanth Walden MD.
== END 2017-12-10 22:13 | disposition home or self-care (01) ==
LOC: ED 18:30
DX: R10.9 Unspecified abdominal pain (principal); K59.00 Constipation, unspecified; R11.0 Nausea; Z96.651 Presence of right artificial knee joint; M62.838 Other muscle spasm
CPT/HCPCS: 36415; 74176; 80053; 83605; 83690; 84484; 85025; 85610; 86140; 93005; 96374; 96375; 99283; A9270-GY; J1170; J1200

== ENCOUNTER 2019-05-10 13:57 | Inpatient (IN) | payer MEDICARE ==
--- OUTSIDE RECORDS SUMMARY | 2019-05-10 15:15 | XMS REPORT | Continuity of Care Document ---
:1935 External Reference #:[id number] Author Name Lluvia Bella M.D. 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 Onset: 12/05/2014 Tenosynovitis of hand Lluvia Bella M.D. Onset: 01/14/2017 Closed fracture proximal humerus, neck Lluvia Bella M.D. Onset: 2016 Infection and inflammatory reaction due to Román Wynn M.D. Onset: 09/14/2017 internal right knee prosthesis, subsequent encounter Social History Type Date Description Comments Sex Unknown ETOH Use Rarely consumes alcohol Tobacco Use Start: Unknown Patient has never smoked Smoking Status Reviewed: 03/23/19 Patient has never smoked Allergies, Adverse Reactions, Alerts Active Allergies Reaction Severity Comments Date Iodine 10/12/2012 Penicillin SOB, swelling, hives 10/12/2012 Sulfa Antibiotics Nausea and Vomiting 10/12/2012 Erythromycin Nausea and Vomiting 10/12/2012 Cipro Nausea and Vomiting 10/12/2012 Tetracycline Nausea and Vomiting 10/12/2012 Tape 03/26/2014 Medications Active Medications SIG Qnty Indications Ordering Date Provider Diclofenac Sodium apply 1 gram to 300gm Z96.651 Lluvia 02/22/2017 1% Gel affected area 4 Redd Bella times a day Valium take 1 tab by mouth 2tabs Lluvia 10/15/2016 5mg Tablets one half hour prior Redd Bella to mri and one upon arrival if needed. Cyclobenzaprine HCL take 1-2 tabs twice 60tabs Gloria Berger, 05/14/2016 5mg a day as needed for M.D. Tablets spasms Clindamycin HCL 2 tabs one hour 2caps Román Wynn, 05/02/2014 300mg prior to dental M.D. Capsules work Miralax once a day in as Unknown 3350NF Packet needed for constipation Torsemide 1 by mouth every Unknown 20mg Tablets day Methocarbamol Take One To Two 90tabs Dirk Tianna, 500mg Tablets By Mouth Up M.D. Tablets To 4 Times Daily as Needed For Spasm Max/Day-4 Mando-Rite 2 by mouth every Unknown 100mg day Apple Cider Vinegar 2 by mouth every Unknown 600mg day Tablets Glucosamine Sulfate 1 by mouth every Unknown Triple Strength daily 750mg Tablets Albuterol Sulfate as needed Unknown Tablets Chlorthalidone once a day Unknown 50mg Tablets Aleve 2 by mouth every Unknown 220mg Capsules day Multi For Her 50+ One daily Unknown Senna take as needed with Unknown 8.6mg Tablets oxycontin, up to 5 daily Fluticasone Propionate 2 sprays each Unknown nostril daily as 50mcg/Act Suspension needed Zofran every 8 hours as Unknown 8mg Tablets needed Oxycodone HCL 1-2 by mouth four Unknown 5mg Tablets times a day as needed Oxycontin eOne tab by mouth Unknown 40mg Tab ER 12H every 12 hours Abuse-Det Bentyl One by mouth 3 Unknown 10mg Capsules times daily Sertraline HCL 1/2 tab by mouth Unknown 100mg twice a day Tablets Estropipate 1 by mouth every Unknown 0.75mg day Tablets Mag-G 1 tab 4 times daily Unknown 500(27Mg) mg Tablets Montelukast Sodium 1 by mouth every Unknown 10mg day Tablets Levothyroxine Sodium 1 by mouth every Unknown day 100mcg Tablets Klor-Con M20 1 by mouth four Unknown 20Meq times daily Tablets ER Meclizine HCL 1 by mouth three Unknown 25mg times a day Tablets Levocetirizine 1 by mouth every Unknown Dihydrochloride day 5mg Tablets Dulera 2 puff twice a day 13gm Unknown 200-5mcg/Act Aerosol Medications Administered in Office Medication SIG Qnty Indications Ordering Provider Date Depomedrol 40MG Lluvia Bella M.D. 12/24/2016 Injection Depomedrol 40MG Lluvia Bella M.D. 09/17/2016 Injection Depomedrol 40MG Lluvia Bella M.D. 05/27/2016 Injection Depomedrol 40MG Lluvia Bella M.D. 05/27/2016 Injection Depomedrol 40MG Lluvia Bella M.D. 12/25/2015 Injection Depomedrol 80MG Román Wynn M.D. 03/26/2014 Injection Depomedrol 80MG Román Wynn M.D. 12/04/2013 Injection Depomedrol 80MG Oscar Chavira, 09/05/2013 Injection RPA-C Depomedrol 80MG Román Wynn M.D. 05/29/2013 Injection Depomedrol 80MG Román Wynn M.D. 05/29/2013 Injection Depomedrol 80MG Román Wynn M.D. 02/27/2013 Injection Synvisc Or Synvisc-One Román Wynn M.D. 12/02/2012 Injection 1 MG Injection Synvisc Or Synvisc-One Román Wynn M.D. 12/02/2012 Injection 1 MG Injection Synvisc Or Synvisc-One Román Wynn M.D. 12/02/2012 Injection 1 MG Injection Inj, Regadenoson, 0.1 MG Skyler Banks M.D., [facility], 10/18/2012 Injection [facility] Aminophylline Skyler Banks M.D., [facility], 10/18/2012 Injection [facility] Technetium TC 99M Skyler Banks M.D., [facility], 10/18/2012 Tetrofosmin, Per Unit Dose Up [facility] To 40 Millicuries Injection Depomedrol 80MG Erica Henok, RPA-C 06/03/2011 Injection Depomedrol 80MG Erica Henok, RPA-C 06/03/2011 Injection Depomedrol 80MG Erica Henok, RPA-C 01/21/2011 Injection Depomedrol 80MG Erica Henok, RPA-C 09/08/2010 Injection Depomedrol 80MG Erica Henok, RPA-C 05/09/2010 Injection Immunizations CPT Code Status Date Vaccine Lot # [id number] Given 05/02/2018 Influenza Virus Vaccine, Quadrivalent, Split, [id number] Preservative Free Vital Signs Date Vital Result Comment 03/23/2019 10:46am Height 59 inches 4'11" Weight 158.00 lb BP Systolic 130 mmHg BP Diastolic 71 mmHg Respiratory Rate 15 /min Body Temperature 96.1 F Pain Level 9 BMI (Body Mass Index) 31.9 kg/m2 03/03/2019 11:06am Height 59 inches 4'11" Weight 158.00 lb BP Systolic 134 mmHg BP Diastolic 66 mmHg Body Temperature 97.0 F BMI (Body Mass Index) 31.9 kg/m2 Results Description No Information Available Procedures Date Code Description Status 03/03/2019 02591 Pare Hyperkeratotic Lesion Singl Completed 10/21/2018 40419 Debridement Skin,& sq Tissue Completed Medical Devices Description No Information Available Encounters Type Date Location Provider Dx Diagnosis Office Visit 03/03/2019 Sandee Orourke 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 M25.562 Pain in left knee 10:30a [facility] M25.462 Effusion, left knee Z96.652 Presence of left artificial knee joint Office Visit 01/31/2019 Sandee Orourke L97.529 Non-pressure 10:30a [facility] chronic pauline ot Jake prt left foot w unsp severity Office Visit 01/09/2019 Orthopedic Sahil Orourke, L89.899 Pressure ulcer of 1:15p [facility] MD other site, C.[facility].A. unspecified stage M20.12 Hallux valgus (acquired), left foot Office Visit 01/04/2019 10:45a Orthopedic Román Wynn L89.899 Pressure ulcer of Services Of M.D. other site, C.M.A. unspecified stage Office Visit 12/12/2018 11:15a Khurram Rowan89.899 Pressure ulcer of Services Of M.D. other site, C.M.A. unspecified stage M25.562 Pain in left knee Office Visit 11/30/2018 10:45a Orthopedic Román Wynn L97.522 Non-prs chronic Services Of M.D. ulcer oth prt C.M.A. left foot w fat layer exposed Office Visit 11/21/2018 10:30a Khurram Rowan89.899 Pressure ulcer of Services Of M.D. other site, C.M.A. unspecified stage Office Visit 11/16/2018 10:45a Khurram Rowan89.899 Pressure ulcer of Services Of M.D. other site, C.M.A. unspecified stage M25.512 Pain in left shoulder S42.202S Unspecified fracture of upper end of left humerus, sequela Office Visit 11/07/2018 11:15a Khurram Rowan89.899 Pressure ulcer of Services Of M.D. other site, C.M.A. unspecified stage Office Visit 10/31/2018 11:00a Sandee Wynn L97.522 Non-prs chronic Services Of M.D. ulcer oth prt C.M.A. left foot w fat layer exposed Office Visit 10/26/2018 10:30a Sandee Wynn L97.522 Non-prs chronic Services Of M.D. ulcer oth prt C.M.A. left foot w fat layer exposed Office Visit 10/21/2018 9:30a [facility] Raheem Wells L89.899 Pressure ulcer of AT [facility] MD Tammy, other site, FACS unspecified stage Assessments Date Code Description Provider 03/03/2019 L97.529 Non-pressure chronic ulcer of other part Sahil Orourke MD of left foot with u 02/20/2019 M25.562 Pain in left knee Román Wynn M.D. 02/20/2019 M25.462 Effusion, left knee Román Wynn M.D. 02/20/2019 Z96.652 Presence of left artificial knee joint Román Wynn M.D. 01/31/2019 L97.529 Non-pressure chronic ulcer oth prt left Sahil Orourke MD foot w unsp severity 01/09/2019 L89.899 Pressure ulcer of other site, Sahil Orourke MD unspecified stage 01/09/2019 M20.12 Hallux valgus (acquired), left foot Sahil Orourke MD 01/04/2019 L89.899 Pressure ulcer of other site, Román Wynn M.D. unspecified stage 12/12/2018 L89.899 Pressure ulcer of other site, Román Wynn M.D. unspecified stage 12/12/2018 M25.562 Pain in left knee Román Wynn M.D. 11/30/2018 L97.522 Non-pressure chronic ulcer of other part Román Wynn M.D. of left foot with f 11/21/2018 L89.899 Pressure ulcer of other site, Román Wynn M.D. unspecified stage 11/16/2018 L89.899 Pressure ulcer of other site, Román Wynn M.D. unspecified stage 11/16/2018 M25.512 Pain in left shoulder Román Wynn M.D. 11/16/2018 S42.202S Unspecified fracture of upper end of Román Wynn M.D. left humerus, sequela 11/07/2018 L89.899 Pressure ulcer of other site, Román Wynn M.D. unspecified stage 10/31/2018 L97.522 Non-pressure chronic ulcer of other part Román Wynn M.D. of left foot with f 10/26/2018 L97.522 Non-pressure chronic ulcer of other part Román Wynn M.D. of left foot with f 10/21/2018 L89.899 Pressure ulcer of other site, Raheem Munoz MD, FACS unspecified stage Plan of Treatment Future Appointment(s):04/04/2019 10:45 am - Sahil Orourke MD at [facility]A.07/11/2019 11:00 am - Román Wynn M.D. at [facility]. Functional Status Description No Information Available Mental Status Description No Information Available Referrals Description No Information Available
--- OUTSIDE RECORDS SUMMARY | 2019-05-10 15:15 | XMS REPORT | Continuity of Care Document ---
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 to mri and one upon arrival if [...] Provider Date Depomedrol 40MG Lluvia Bella M.D. 03/23/2019 Injection Depomedrol 40MG Lluvia Bella M.D. 03/23/2019 Injection Depomedrol 40MG Lluvia Bella M.D. 12/24/2016 Injection [...] Inj, Regadenoson, 0.1 MG Skyler Banks M.D., [facility], 10/18/2012 Injection [facility] Aminophylline Skyler Banks M.D., [facility], 10/18/2012 Injection [facility] Technetium TC 99M Skyler Banks M.D., [facility], 10/18/2012 Tetrofosmin, Per Unit Dose Up FSCAI To 40 Millicuries Injection Depomedrol 80MG Erica Henok, [facility] 06/03/2011 Injection Depomedrol 80MG Erica Henok, [facility] 06/03/2011 Injection Depomedrol 80MG Erica Henok, [facility] 01/21/2011 Injection Depomedrol 80MG Erica Henok, [facility] 09/08/2010 Injection Depomedrol 80MG Erica Henok, [facility] 05/09/2010 Injection Immunizations CPT Code Status Date Vaccine Lot # [id number] Given 05/02/2018 Influenza Virus Vaccine, Quadrivalent, Split, [id number] Preservative Free Vital Signs Date Vital Result Comment 05/02/2019 11:43am Height 58 inches 4'10" Weight 158.00 lb Heart Rate 84 /min Respiratory Rate 14 /min Body Temperature 96.4 F Pain Level 0 BMI (Body Mass Index) 33.0 kg/m2 04/04/2019 10:55am Height 58 inches 4'10" Weight 158.00 lb Heart Rate 68 /min BP Systolic Sitting 136 mmHg BP Diastolic Sitting 72 mmHg Body Temperature 97.7 F Pain Level 1 BMI (Body Mass Index) 33.0 kg/m2 Results Description No Information Available Procedures Date Code Description Status 03/23/2019 Injection, Carpal Tunnel Completed 03/03/2019 70151 Pare Hyperkeratotic Lesion Singl Completed Medical Devices Description No Information Available Encounters Type Date Location Provider Dx Diagnosis Office Visit 04/04/2019 Sandee Orourke, L97.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 M25.562 Pain in left knee 10:30a Services Of Jake M25.462 Effusion, left knee Z96.652 Presence of left artificial knee joint Office Visit 01/31/2019 Orthopedic Sahil Orourke L97.529 Non-pressure 10:30a Services Of chronic ulcer oth C.M.A. prt left foot w unsp severity Office Visit 01/09/2019 Orthopedic Sahil Orourke L89.899 Pressure ulcer of 1:15p Services Of other site, C.M.A. unspecified stage M20.12 Hallux valgus (acquired), left foot Office Visit 01/04/2019 10:45a Sandee yWnn L89.899 Pressure ulcer of Services Of M.D. other site, C.M.A. unspecified stage Office Visit 12/12/2018 11:15a Khurram Rowan89.899 Pressure ulcer of Services Of M.D. other site, C.M.A. unspecified stage M25.562 Pain in left knee Office Visit 11/30/2018 10:45a Aylin Rowan7.522 Non-prs chronic Services Of M.D. ulcer oth prt C.M.A. left foot w fat layer exposed Office Visit 11/21/2018 10:30a Sandee Wynn L89.899 Pressure ulcer of Services Of M.D. other site, C.M.A. unspecified stage Office Visit 11/16/2018 10:45a Sandee Wynn L89.899 Pressure ulcer of Services Of M.D. other site, C.M.A. unspecified stage M25.512 Pain in left shoulder S42.202S Unspecified fracture of upper end of left humerus, sequela Office Visit 11/07/2018 11:15a Sandee Wynn L89.899 Pressure ulcer of Services Of M.D. other site, C.M.A. unspecified stage Office Visit 10/31/2018 11:00a Sandee Wynn L97.522 Non-prs chronic Services Of M.D. ulcer oth prt C.M.A. left foot w fat layer exposed Assessments Date Code Description Provider 05/02/2019 L97.529 Non-pressure chronic ulcer of other part of Sahil Orourke MD left foot with u 04/04/2019 L97.529 Non-pressure chronic ulcer of other part of Sahil Orourke MD left foot with u 03/23/2019 G56.03 Carpal tunnel syndrome, bilateral upper Lluviafrancia Bella M.D. limbs 03/03/2019 L97.529 Non-pressure chronic ulcer of other part of Sahil Orourke MD left foot with u 02/20/2019 M25.562 Pain in left knee Román Wynn M.D. 02/20/2019 M25.462 Effusion, left knee Román Wynn M.D. 02/20/2019 Z96.652 Presence of left artificial knee joint Román Wynn M.D. 01/31/2019 L97.529 Non-pressure chronic ulcer oth prt left Sahil Orourke MD foot w unsp severity 01/09/2019 L89.899 Pressure ulcer of other site, unspecified Sahil Orourke MD stage 01/09/2019 M20.12 Hallux valgus (acquired), left foot Sahil Orourke MD 01/04/2019 L89.899 Pressure ulcer of other site, unspecified Román Wynn M.D. stage 12/12/2018 L89.899 Pressure ulcer of other site, unspecbradly Wynn M.D. stage 12/12/2018 M25.562 Pain in left knee Román Wynn M.D. 11/30/2018 L97.522 Non-pressure chronic ulcer of other part of Román Wynn M.D. left foot with f 11/21/2018 L89.899 Pressure ulcer of other site, unspecified Román Wynn M.D. stage 11/16/2018 L89.899 Pressure ulcer of other site, unspecified Román Wynn M.D. stage 11/16/2018 M25.512 Pain in left shoulder Román Wynn M.D. 11/16/2018 S42.202S Unspecified fracture of upper end of left Román Wynn M.D. humerus, sequela 11/07/2018 L89.899 Pressure ulcer of other site, unspecified Román Wynn M.D. stage 10/31/2018 L97.522 Non-pressure chronic ulcer of other part of Román Wynn M.D. left foot with f Plan of Treatment Future Appointment(s):05/30/2019 11:15 am - Sahil Orourke MD at [facility].07/11/2019 11:00 am - Román Wynn M.D. at [facility].05/02/2019 - Sahil Orourke MDL97.529 Non-pressure chronic ulcer of other part of left foot with uReferral:Wound Clinic, Clinic/CenterFollow up: Follow Up: 4 weeks Functional Status Description No Information Available Mental Status Description No Information Available Referrals Refer to Dr Reason for Referral Status Appt Date Wound Clinic left foot ulcer Created [address] [place] [phone]
--- OUTSIDE RECORDS SUMMARY | 2019-05-10 15:15 | XMS REPORT | Continuity of Care Document ---
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 09/17/2016 Injection Julianarol 40MG Lluvia Bella M.D. 05/27/2016 Injection Depomedrol [...] Inj, Regadenoson, 0.1 MG Skyler Banks M.D., [facility], 10/18/2012 Injection [facility] Aminophylline Skyler Banks M.D., [facility], 10/18/2012 Injection [facility] Technetium TC 99M Skyler Banks M.D., [facility], 10/18/2012 Tetrofosmin, Per Unit Dose Up [facility] To 40 Millicuries Injection Depomedrol 80MG Erica Henok, [facility] 06/03/2011 Injection Depomedrol 80MG Erica Henok, [facility] 06/03/2011 Injection Depomedrol 80MG Erica Henok, [facility] 01/21/2011 Injection Depomedrol 80MG Erica Henok, [facility] 09/08/2010 Injection Depomedrol 80MG Erica Henok, [facility] 05/09/2010 Injection Immunizations CPT Code Status Date Vaccine Lot # [id number] Given 05/02/2018 Influenza Virus Vaccine, Quadrivalent, Split, [id number] Preservative Free Vital Signs Date Vital Result Comment 04/04/2019 10:55am Height 58 inches 4'10" Weight 158.00 lb Heart Rate 68 /min BP Systolic Sitting 136 mmHg BP Diastolic Sitting 72 mmHg Body Temperature 97.7 F Pain Level 1 BMI (Body Mass Index) 33.0 kg/m2 03/23/2019 10:46am Height 59 inches 4'11" Weight 158.00 lb BP Systolic 130 mmHg BP Diastolic 71 mmHg Respiratory Rate 15 /min Body Temperature 96.1 F Pain Level 9 BMI (Body Mass Index) 31.9 kg/m2 Results Description No Information Available Procedures Date Code Description Status 03/23/2019 Injection, Carpal Tunnel Completed 03/03/2019 55658 Pare Hyperkeratotic Lesion Singl Completed 10/21/2018 70003 Debridement Skin,& sq Tissue Completed Medical Devices Description No Information Available Encounters Type Date Location Provider Dx Diagnosis Office Visit 03/03/2019 Sandee Orourke, L97.529 Non-pressure 10:45a [facility] chronic ulcer oth prt left foot w unsp severity Office Visit 02/20/2019 Orthopedic Román Wynn M.D. M25.562 Pain in left knee 10:30a Services Of Jake M25.462 Effusion, left knee Z96.652 Presence of left artificial knee joint Office Visit 01/31/2019 Sandee Orourke L97.529 Non-pressure 10:30a Services Of chronic ulcer ot C.M.A. prt left foot w unsp severity Office Visit 01/09/2019 Orthopedic Khurram Brooks89.899 Pressure ulcer of 1:15p Services Of other site, C.M.A. unspecified stage M20.12 Hallux valgus (acquired), left foot Office Visit 01/04/2019 10:45a Khurram Rowan89.899 Pressure ulcer of Services Of M.D. other site, C.M.A. unspecified stage Office Visit 12/12/2018 11:15a Khurram Rowan89.899 Pressure ulcer of Services Of M.D. other site, C.M.A. unspecified stage M25.562 Pain in left knee Office Visit 11/30/2018 10:45a Aylin Rowan7.522 Non-prs chronic Services Of M.D. ulcer ot prt C.M.A. left foot w fat layer [...] L97.522 Non-prs chronic Services Of M.D. ulcer ot prt C.M.A. left foot w fat layer exposed Office Visit 10/26/2018 10:30a Aylin Rowan7.522 Non-prs chronic Services Of M.D. ulcer oth prt C.M.A. left foot w fat layer exposed Office Visit 10/21/2018 9:30a [facility] Raheem P. L89.899 Pressure ulcer of AT [facility] MD Tammy, other site, FACS unspecified stage Assessments Date Code Description Provider 04/04/2019 L97.529 Non-pressure chronic ulcer of other part Sahil Orourke MD of left foot with u 03/23/2019 G56.03 Carpal tunnel syndrome, bilateral upper Lluvia Bella M.D. limbs 03/03/2019 L97.529 Non-pressure chronic [...] ulcer of other site, Raheem Munoz MD, [facility] unspecified stage Plan of Treatment Future Appointment(s):05/02/2019 11:30 am - Sahil Orourke MD at [facility]A.07/11/2019 11:00 am - Román Wynn M.D. at [facility].A.04/04/2019 - Sahil Orourke MDL97.529 Non-pressure chronic ulcer of other part of left foot with uFollow up:Follow Up: 4 weeks Functional Status Description No Information Available Mental Status Description No Information Available Referrals Description No Information Available
--- NOTE | 2019-05-10 16:03 | ED ---
Abdominal Pain/Female - HPI Summary HPI Summary: Pt is an 84 y/o F presenting to the ED for a chief complaint of abdominal pain. Pt has a large ventral hernia which she has had for at least 7 years. She previously had a problem with a previous mesh after reconstruction and possible SBO. Pt had constipation before she took an enema on 05/09/19 and subsequently had a small bowel movement. Pt admits nausea and feculent vomiting. Pt denies fever. Pt has a PMHx of scoliosis and spinal stenosis, and PSHx of orthopedic surgery. Pt also had an abdominal surgery with mesh performed approximately [address] Tiwari in [place]. Pt denies FMHx of HTN or DM, but admits FMHx of cancer. Pt has not eaten for 3 days. Pt is present with her son. - History of Current Complaint Chief Complaint: EDAbdPain Stated Complaint: ABDOMINAL PAIN PER SON Time Seen by Provider: 05/10/19 15:47 Hx Obtained From: Patient Onset/Duration: Lasting Days, Still Present Timing: Days Severity Initially: Severe Severity Currently: Severe Pain Intensity: 10 Pain Scale Used: 0-10 Numeric Location: Diffuse Radiates: No Aggravating Factor(s): Nothing Alleviating Factor(s): Other: - Enema Associated Signs and Symptoms: Positive: Constipation, Nausea, Vomiting - Feculent Allergies/Adverse Reactions: Allergies Allergy/AdvReac Type Severity Reaction Status Date / Time Iodinated Contrast Media Allergy Hives/Diff. Verified 03/28/19 11:26 [Iodinated Contrast- Oral Breathing/I and IV Dye] tching iodine Allergy ANAPHYLACTIC Verified 03/28/19 11:26 SHOCK Penicillins Allergy Hives/Diff. Verified 03/28/19 11:26 Breathing/I tching Adhesive Tape AdvReac Rash Verified 03/28/19 11:26 ciprofloxacin [From Cipro] AdvReac Vomiting Verified 03/28/19 11:26 erythromycin base AdvReac Vomiting Verified 03/28/19 11:26 Sulfa (Sulfonamide AdvReac Nausea Verified 03/28/19 11:26 Antibiotics) tetracycline AdvReac Nausea Verified 03/28/19 11:26 CT CONTRAST Allergy Severe HIVES/DIFFICULTY Uncoded 10/27/18 14:11 BREATHING Home Medications: Home Medications Albuterol HFA INHALER* [Ventolin HFA Inhaler*] 2 puff INH Q4HR 05/10/19 [ History Confirmed 05/10/19] Cider Vinegar [Apple Cider Vinegar] 1,200 mg PO DAILY 05/10/19 [History Confirmed 05/10/19] Dicyclomine CAP* [Bentyl CAP*] 10 mg PO TID 05/10/19 [History Confirmed 05/10/19 ] Docusate Sodium [Col-Rite] 200 mg PO DAILY PRN 05/10/19 [History Confirmed 05/10] Estradiol (NF) 0.25 mg PO DAILY 05/10/19 [History Confirmed 05/10/19] Glucosamine/MSM/Chondroitin A [Glucosamine Chondroit MSM Tab] 1 each PO DAILY [History Confirmed 05/10/19] Meclizine TAB* [Antivert 12.5 TAB*] 25 mg PO Q6HR PRN 05/10/19 [History Confirmed 05/10/19] Mometasone/Formoter 200/5 MDI* [Dulera 200/5 MDI*] 1 puff INH BID 05/10/19 [ History Confirmed 05/10/19] Naproxen Sodium [Aleve] 440 mg PO DAILY 05/10/19 [History Confirmed 05/10/19] Ondansetron ODT TAB* [Zofran 4 MG Odt TAB*] 8 mg PO Q6H PRN 05/10/19 [History Confirmed 05/10/19] Senna TAB 8.6 mg* [Senokot 8.6 mg TAB*] 8.6 mg PO QID PRN MDD 5 05/10/19 [ History Confirmed 05/10/19] Torsemide TAB* [Demadex*] 20 mg PO DAILY 05/10/19 [History Confirmed 05/10/19] PMH/Surg Hx/FS Hx/Imm Hx Previously Healthy: Yes Endocrine/Hematology History: Reports: Hx Thyroid Disease, Hx Anemia Denies: Hx Diabetes Cardiovascular History: Reports: Hx Angina, Hx Deep Vein Thrombosis, Hx Embolism , Other Cardiovascular Problems/Disorders Denies: Hx Coronary Artery Disease, Hx Hypertension, Hx Myocardial Infarction , Hx Pacemaker/ICD Respiratory History: Reports: Hx Asthma, Hx Pneumonia, Hx Pulmonary Embolism - 2012, Hx Seasonal Allergies, Other Respiratory Problems/Disorders - pneumonia GI History: Reports: Hx Hiatal Hernia, Other GI Disorders - hernia repair x3 Denies: Hx Gastroesophageal Reflux Disease, Hx Jaundice History: Reports: Other Problems/Disorders - per H+P CKD Denies: Hx Renal Disease Musculoskeletal History: Reports: Hx Arthritis, Hx Back Problems - chronic low back pain, Hx Gout, Hx Orthopedic Injury - fx left shoulder, Hx Scoliosis, Other Musculoskeletal History - bilateral knee replacement, lower right leg cellulitis Sensory History: Reports: Hx Cataracts Denies: Hx Contacts or Glasses, Hx Hearing Aid Opthamlomology History: Reports: Hx Cataracts Denies: Hx Contacts or Glasses Neurological History: Reports: Hx Nerve Disease - "stocking feet" tremors, Other Neuro Impairments/Disorders - spinal stenosis - pain clinic patient Psychiatric History: Reports: Hx Anxiety, Hx Depression Denies: Hx Panic Disorder - Surgical History Surgery Procedure, Year, and Place: right TKR; R knee revision;. Appendectomy. L knee scope. lumbar discectomy 30 yrs ago. Abdominal Obstruction/Hernia Repair with Mesh syr 2013 - hernia repair x3 and replacement of infected mesh. Hysterectomy. right t[place] 03/[facility] left [place] 08[place] [facility] right macular hole repair syr. Bilateral cataract cmc. Revision right total knee secondary to infection 2016. BILATERAL CARPAL TUNNEL Hx Anesthesia Reactions: No Infectious Disease History: No Infectious Disease History: Reports: Hx of Known/Suspected MRSA - see above, History Other Infectious Disease Denies: Traveled Outside the [place] in Last 30 Days - Family History Known Family History: Positive: Hypertension - Social History Alcohol Use: Occasionally Hx Substance Use: No Substance Use Type: Reports: None Hx Tobacco Use: No Smoking Status (MU): Never Smoked Tobacco Have You Smoked in the Last Year: No Review of Systems Negative: Fever Positive: Abdominal Pain, Vomiting - Feculent, Nausea, Other - Ventral hernia; negative preHx of bowel obstruction All Other Systems Reviewed And Are Negative: Yes Physical Exam - Summary Physical Exam Summary: Constitutional: elderly. chronically ill appearing. Skin: Warm, Dry HENT: Normocephalic; Atraumatic, dry MM. Eyes: Conjunctiva normal Neck: Musculoskeletal ROM normal neck. (-) JVD, (-) Stridor, (-) Nuchal rigidity Cardio: Rhythm regular, rate normal, Heart sounds normal; Intact distal pulses; Radial pulses are 2+ and symmetric. (-) Murmur Pulmonary/Chest wall: Effort normal. (-) Respiratory distress, (-) Wheezes, (-) Rales Abd: Soft, (-) Guarding, (-) Rebound. Large ventral hernia, distended, mild diffuse tenderness. Musculoskeletal: (-) Edema Lymph: (-) Cervical adenopathy Neuro: Alert, Oriented x3 Psych: Mood and affect Normal Triage Information Reviewed: Yes Vital Signs On Initial Exam: Initial Vitals Temp Pulse Resp BP Pulse Ox 96.1 F 106 18 140/116 98 05/10/19 14:01 05/10/19 14:01 05/10/19 14:01 05/10/19 14:01 05/10/19 14:01 Vital Signs Reviewed: Yes Procedures - Sedation Patient Received Moderate/Deep Sedation with Procedure: No Diagnostics - Vital Signs Vital Signs Temp Pulse Resp BP Pulse Ox 05/10/19 15:27 97.7 F 99 18 159/79 95 05/10/19 14:01 96.1 F 106 18 140/116 98 - Laboratory Result Diagrams: 05/10/19 16:07 05/10/19 16:07 Lab Statement: Any lab studies that have been ordered have been reviewed, and results considered in the medical decision making process. - CT Abdomen/Pelvis CT CT Interpretation Completed By: Radiologist Summary of CT Findings: Abdomen/Pelvis CT IMPRESSION: 1. Again seen is a large midline abdominal hernia/diastases recti allowing loops of bowel. to herniate into the patient's pannus. There has been interval development of signs of. small bowel obstruction with the small bowel measuring 4.4 cm in diameter. The transition. point potentially occurs in the inferior, left of midline portion of the herniated loops. of bowel within the pannus. 2. Additional chronic and degenerative changes noted in the body the report unlikely to be. directly related to the patient's current ER presentation. Reviewed by ED physician. Re-Evaluation - Re-Evaluation First Eval Re-Evaluation Time: 07:10 Comment: CT w SBO, NG placed. Given morphine for pain and zofran for nausea. Dr. Munoz aware of patient, [place] [facility] Abdominal Pain Fem Course/Dx - Course Course Of Treatment: 84-year-old female with a history of complicated ventral hernia repair who presents with nausea, vomiting and constipation. Physical exam with a large ventral hernia, distended abdomen, no evidence of incarceration however given clinical presentation, concern for bowel obstruction. Check CT abdomen and pelvis, give IV fluids and reassess. - Diagnoses Provider Diagnoses: Small bowel obstruction - Provider Notifications Discussed Care Of Patient With: Raheem Munoz - At 19:01, pt will be admitted [place] [facility] for a diagnosis of small bowel obstruction. Dr. Munoz recommends admission to hospitalist. Will seek consult on floor. Time Discussed With Above Provider: 19:01 - At 19:10, I spoke with Dr. Mensah who accepts the pt with diagnosis of small bowel obstruction. Discharge ED - Sign-Out/Discharge Documenting (check all that apply): Patient Departure - Admit - Discharge Plan Condition: Stable Disposition: ADMITTED TO [facility] Referrals: Grisel Medellin MD [Primary Care Provider] - - Billing Disposition and Condition Condition: STABLE Disposition: Admitted to [facility] - Attestation Statements Document Initiated by Katherineibe: Yes Documenting Scribe: Carli Vaughn Provider For Whom Scribe is Documenting (Include Credential): Lizzy Conroy Scribe Attestation: ICarli, scribed for Lizzy Conroy on 05/10/19 at 1956. Scribe Documentation Reviewed: Yes Provider Attestation: The documentation as recorded by the Carli laureano accurately reflects the service I personally performed and the decisions made by Lizzy meyer Status of Scribe Document: Viewed
[2019-05-10 16:20] LABS: ABS Eosinophils 0.1 10^3/ul (0-0.6); ABS Monocytes 0.8 10^3/ul (0-0.8); ABS Neutrophils 5.7 10^3/ul (1.5-7.7); Eosinophil % 0.9 %; Hematocrit 37 % (35-47); Hemoglobin 11.9 g/dL (12.0-16.0); Lymphocyte % 12.7 %; Mean Corpuscular HGB Conc 33 g/dL (31-36); Mean Corpuscular Hemoglobin 27 pg (27-31); Mean Corpuscular Volume 84 fL (80-97); Mean Platelet Volume 7.6 fL (7.4-10.4); Platelet Count 481 10^3/uL (150-450); Red Blood Count 4.34 10^6 /uL (3.70-4.87); Red Cell Distribution Width 15 % (10-15); White Blood Count 7.6 10^3/uL (3.5-10.8)
[2019-05-10] MEDS ORDERED: NS 0.9% 1000 ML** 1,000 ML IV ONE (16:26)
[2019-05-10] MEDS ORDERED: Ondansetron INJ* 2 MG/ML VIAL IV ONE ×2 (16:26→19:39)
[2019-05-10] MEDS ORDERED: Morphine 4 MG/ML VIAL (1 ml) 4 MG/ML VIAL IV ONE ×2 (16:26→19:11)
[2019-05-10 16:36] LABS: Albumin 3.9 g/dL (3.2-5.2); Albumin/Globulin Ratio 0.8 (1-3); BUN/Creatinine Ratio 26.4 (8-20); C Reactive Protein 125.46 mg/L (<8.01); Calcium 9.9 mg/dL (8.6-10.3); EGFR African American 32.8 (>60); EGFR Non-African American 27.1 (>60); Globulin 4.6 g/dL (2-4); Potassium 4.6 mmol/L (3.5-5.0); Total Bilirubin 0.6 mg/dL (0.2-1.0); Total Protein 8.5 g/dL (6.4-8.9)
[2019-05-10 18:59] LABS: Urine Appearance Clear; Urine Bilirubin Negative (Negative); Urine Blood Negative (Negative); Urine Color Yellow; Urine Glucose Negative (Negative); Urine Ketones Negative (Negative); Urine Nitrite Negative (Negative); Urine Protein Negative (Negative); Urine Specific Gravity 1.011 (1.010-1.030); Urine Urobilinogen Negative (Negative)
[2019-05-10] MEDS ORDERED: Morphine INJ* 2 MG/ML 1 ML SYRINGE (TWO MG - NEW SYRINGE VERSION) IV PRN (20:50)
--- NOTE | 2019-05-10 21:27 | CONS ---
CC: Dr. Grisel Medellin; [facility] * SURGICAL CONSULTATION REPORT: DATE OF CONSULT: 05/10/19 LOCATION: The patient is seen in the emergency room. HISTORY OF PRESENT ILLNESS: I was contacted by the emergency room staff to evaluate Ms. Duke, an 84-year-old female, who presented with a 3-day history of severe abdominal pain, worsening with foul smelling vomitus and obstipation. Workup in the emergency room including labs and CT scan was suggesting a small bowel obstruction. The patient has NG tube placed in the ED. The patient is on IV fluids and is for planned admission. The patient has had something similar in the past, admitted approximately 2 years ago with a small bowel obstruction. She has had multiple abdominal surgeries with abdominal wall reconstruction and notably has a large incisional hernia that has gotten bigger over time. Her last repair was in [place] where she had removal of a large piece of mesh and her followup visits with her previous surgeon suggested that no additional intervention will be done except on an emergent basis. CAT scan is reviewed. It shows no free fluid. Dilated loops of small bowel entering and exiting her hernia that is quite large. Transition zone does not appear to be within the hernia. The patient at this point is comfortable. She is surrounded by family. PAST MEDICAL HISTORY: Reviewed. PHYSICAL EXAM: She is afebrile, vital signs are stable. She is alert and oriented x3, in no apparent distress. NG tube is in with less than 100 cc output. This was just placed. Abdomen is soft, distended, tender in the right upper quadrant and overlying the large abdominal defect, a small open wound, the patient states that it reopens on multiple occasions just right of the midline. It shows no cellulitis. Rectal exam is not performed. DIAGNOSTIC STUDIES/LAB DATA: Labs reviewed show normal white count of 7.6, but an elevated CRP of 125. The patient's creatinine is at 1.78, which is up from her baseline of 1 from earlier the summer. Urinalysis is within normal limits. CAT scan reviewed. IMPRESSION AND PLAN: An 84-year-old female with complex abdominal wall hernia with likely , who presents with small bowel obstruction of unclear etiology possibly from secondary to the hernia versus adhesion. No free fluid. No elevated white blood cell count. Plan would be for observation, NG tube, IV fluids, n.p.o. status, and serial abdominal exams. If the patient did require surgery, it would certainly be after multiple days of watchful waiting due to the fact that we would not be able to perform any good functional closure of the abdomen due to hernia. The patient is aware of this as is the family. We will follow while she is hospitalized. [id number] #: [id number] MTDD
[2019-05-10] MEDS ORDERED: Albuterol HFA INHALER* 8 gm MDI INH PRN (22:00)
[2019-05-10] MEDS: Heparin VIAL(*) 5000 UNITS/ML VIAL (FIVE THOUSAND) SUBCUT SCH (22:39)
[2019-05-10] MEDS: Lactated Ringers 1000 ML Bag* 1,000 ML IV SCH (22:40)
--- NOTE | 2019-05-10 22:44 | HP ---
CC: Dr. Grisel Medellin * ADMISSION HISTORY AND PHYSICAL: DATE OF ADMISSION: 05/10/19 PRIMARY CARE PHYSICIAN: Dr. Grisel Medellin CHIEF COMPLAINT: Abdominal pain and nausea, vomiting. HISTORY OF PRESENT ILLNESS: This is an 84-year-old female with past medical history of asthma, hypertension, hypothyroidism, chronic lower extremity edema, anxiety, depression, neuropathy, and multiple abdominal surgeries including appendectomy, hysterectomy, abdominal wall hernia repair with resection of the mesh for complicated superinfection with colon resection, previous history of small bowel obstruction, comes in again with 3 days of nausea. The patient also has not had bowel movement for almost 4 days. She had the last bowel movement 3 days ago. She had nausea and for the last 2 days she has been having abdominal pain, which was diffuse in nature, nonradiating, similar in nature to her previous episodes of small bowel obstruction. She tried taking enema yesterday, which caused her to have a small bowel movement and then this morning she has had multiple episodes of vomiting, so finally decided to come to the ER for further evaluation. The patient denies any chest pain or shortness of breath, any other numbness, tingling, or weakness. PAST MEDICAL HISTORY: As mentioned asthma; hypertension; hypothyroidism; chronic lower extremity edema; spinal stenosis; and scoliosis with neuropathy; anxiety; depression; osteoarthritis; history of vertigo, on meclizine; and history of large ventral hernia; chronic pain due to spinal stenosis, on narcotics. PAST SURGICAL HISTORY: Includes appendectomy, hysterectomy, abdominal wall hernia repair with complication, which required colon resection and still persistent ventral hernia, also history of right total knee replacement in 2013 , which was infected in 2016, and removed in August 2017 with a fresh new prosthesis put in November 2017 after she finished a course of antibiotics. She has also had left total knee replacement done in 2014, bilateral carpal tunnel surgeries, cataract surgeries. HOME MEDICATIONS: The patient is currently on: 1. Sodium docusate 200 mg a day p.r.n. 2. Triamterene/hydrochlorothiazide 1 tablet every morning. 3. Aleve 440 mg p.o. daily. 4. Robaxin 500 to 1000 mg p.o. q.6 hours p.r.n. 5. Apple cider vinegar 200 mg oral daily. 6. Glucosamine/chondroitin 1 tablet oral daily. 7. Multivitamins 1 tablet oral daily. 8. Senna 8.6 mg p.o. 4 times a day p.r.n. 9. Zofran 8 mg q.6 hours p.r.n. 10. Flonase 2 sprays in both nares at 8 a.m. 11. Bentyl 10 mg p.o. t.i.d. 12. OxyContin 5 to 10 mg p.o. q.6 hours p.r.n. 13. Zoloft 15 mg b.i.d. 14. Montelukast every evening. 15. Potassium chloride 20 mEq tablets 4 times a day. 16. Oxycodone 40 mg p.o. b.i.d. 17. Levothyroxine 100 mcg p.o. every morning. 18. Magnesium gluconate 500 mg p.o. 4 times a day. 19. Meclizine 25 mg q.6 hours p.r.n. 20. Levocetirizine 5 mg p.o. every morning. 21. Estradiol 0.25 mg oral daily. 22. Ventolin HFA 2 puffs by inhalation q.4 hours p.r.n. 23. Dulera 1 puff by inhalation b.i.d. 24. Demadex 20 mg oral daily. ALLERGIES: The patient is allergic to IODINATED CONTRAST MEDIA and IODINE, which caused anaphylactic shock, PENICILLIN causes hives and difficulty breathing, ADHESIVE TAPE causes rash, CIPROFLOXACIN, ERYTHROMYCIN, SULFA ANTIBIOTICS, and TETRACYCLINE all cause nausea, vomiting, and CT CONTRAST MEDIA also causes hives and difficulty breathing. FAMILY HISTORY: Mother due to colon cancer and dad had the ulcerative cancer and brother had lung cancer, but given her age, these are unrelated. SOCIAL HISTORY: The patient is , lives with her son. She is full code and her son Sam is her healthcare proxy. She otherwise denies any smoking alcohol or drug use. REVIEW OF SYSTEMS: A 14-point review of systems did not reveal any new information other than the ones mentioned in the HPI. PHYSICAL EXAMINATION GENERAL: The patient is awake, alert and oriented x3. Does not appear to be in any acute respiratory distress. VITAL SIGNS: In the ER, BP was noted to be 136/66, heart rate 79, respiration rate 20, saturation 96% on room air, temperature was recorded at 97.7. HEAD AND NECK: Atraumatic and normocephalic. Bilateral pupils are reactive. Oral mucosa was dry. There was an NG tube placed on her nares. NECK: Supple. No jugular venous distention. LUNGS: Clear to auscultation bilaterally. No wheezes, rhonchi, or rales. HEART: S1, S2. There was systolic murmur heard. ABDOMEN: There was a large ventral hernia with diffuse tenderness to palpation. Normoactive bowel sounds were heard. EXTREMITIES: No cyanosis, clubbing, or edema. DIAGNOSTIC STUDIES/LAB DATA: CBC was unremarkable with some mild anemia with hemoglobin of 11.9, platelet count was noted to be minimally elevated at 481. Comprehensive metabolic panel shows mild hyponatremia with sodium of 134, potassium was normal. BUN elevated at 47, creatinine elevated at 1.78. C- reactive protein noted to be elevated at 125. LFTs were within normal limits. Urinalysis was negative for any leuk esterase or nitrite, was otherwise clear. CT abdomen and pelvis was showing a large midline abdominal hernia and diastasis recti allowing loops of bowel to herniate into the patient's pannus and there is interval development of signs of small bowel obstruction with the small bowel measuring 4.46 cm in diameter. The transition point potentially occurs in the inferior left of the midline portion of the herniated loops of bowel within pannus. Additional chronic and degenerative changes are noted in the body, unlikely to be directly related to the patient's current ER presentation. Chest x-ray: Portable chest x-ray was showing some mild pulmonary congestion, but otherwise unremarkable. We could not see the gastric bubble, official read by radiologist is still pending. IMPRESSION: This is an 84-year-old female with multiple abdominal surgeries and multiple complications including small bowel obstructions in the past, comes in again with abdominal pain secondary to small bowel obstruction with obstruction site to be in the ventral hernia. ASSESSMENT: 1. Small bowel obstruction. We will start the patient on conservative management with NG tube with suction, which already had drained close to 500 cc. We will continue with low intermittent wall suctioning. Dr. Munoz, the surgeon, already evaluated the patient did not think the patient is a surgical candidate at this point for any repair of fibrous tissues versus hernia repair. We will start the patient on IV fluid and monitor her electrolytes. 2. History of hypertension. We will hold the patient's BP medications in light of her being normotensive and unable to tolerate p.o. and consider starting the patient on BP medication if the blood pressure increases. 3. History of asthma. Resume her inhalers, but hold her p.o. medication. 4. History of hypothyroidism. We will change the levothyroxine from p.o. to IV. 5. History of anxiety, depression, and neuropathy. For now, we will hold these medications and consider IV if needed. 6. History of chronic pain due to spinal stenosis, continue with IV pain medications. 7. DVT prophylaxis: Given history of previous DVT, the patient is at high risk and we will start the patient on heparin subcu q.8 hours for DVT prophylaxis. 8. Acute kidney injury likely secondary to dehydration. We will monitor creatinine with a.m. labs. [id number]/[facility] #: [id number] FUNMILAYO
[2019-05-11] MEDS: Lidocaine 2% VISCOUS* 15 ML UDC SWISH SPIT PRN ×2 (01:16→09:09)
[2019-05-11] MEDS: Morphine INJ* 4 MG/ML 1 ML SYRINGE (NEW SYRINGE VERSION) IV PRN ×4 (01:16→19:18)
[2019-05-11] MEDS: Levothyroxine INJ* 100 MCG/5 ML VIAL IV SCH (05:25)
[2019-05-11] MEDS: Heparin VIAL(*) 5000 UNITS/ML VIAL (FIVE THOUSAND) SUBCUT SCH ×3 (05:25→21:29)
[2019-05-11] MEDS: Mometasone/Formoter 200/5 MDI INH SCH ×4 (05:26→19:43)
[2019-05-11 05:50] LABS: ABS Eosinophils 0.2 10^3/ul (0-0.6); ABS Lymphocytes 1.4 10^3/ul (1.0-4.8); ABS Monocytes 0.7 10^3/ul (0-0.8); ABS Neutrophils 2.8 10^3/ul (1.5-7.7); Eosinophil % 4.4 %; Hematocrit 30 % (35-47); Hemoglobin 10.1 g/dL (12.0-16.0); Lymphocyte % 26.4 %; Mean Corpuscular HGB Conc 33 g/dL (31-36); Mean Corpuscular Hemoglobin 28 pg (27-31); Mean Corpuscular Volume 84 fL (80-97); Mean Platelet Volume 7.7 fL (7.4-10.4); Nucleated Red Blood Cells % 0.1; Platelet Count 391 10^3/uL (150-450); Red Blood Count 3.63 10^6 /uL (3.70-4.87); Red Cell Distribution Width 15 % (10-15); White Blood Count 5.2 10^3/uL (3.5-10.8)
[2019-05-11 06:14] LABS: BUN/Creatinine Ratio 31.7 (8-20); Calcium 8.8 mg/dL (8.6-10.3); EGFR African American 41.5 (>60); EGFR Non-African American 34.3 (>60); Phosphorus 4.1 mg/dL (2.5-5.0); Potassium 3.2 mmol/L (3.5-5.0)
[2019-05-11] MEDS ORDERED: Influenza VAC *QUAD* 2019-20* 0.5 ML SYRINGE IM ONE (08:00)
[2019-05-11] MEDS: Ondansetron INJ* 2 MG/ML VIAL IV PRN ×2 (09:08→19:19)
[2019-05-11] MEDS: Fluticasone NASAL SPRAY 50MCG* 16 gm SPRAY BTL BOTH NARES SCH ×2 (09:09→19:16)
[2019-05-11] MEDS: Lactated Ringers 1000 ML Bag* 1,000 ML IV SCH (09:11)
[2019-05-11] MEDS: KCL 20 MEQ/100 ML IVPREMIX* 20 MEQ/100 ML BAG IV SCH ×3 (10:45→17:30)
[2019-05-11] MEDS ORDERED: Morphine INJ* 4 MG/ML 1 ML SYRINGE (NEW SYRINGE VERSION) IV ONE (11:00)
--- NOTE | 2019-05-11 13:52 | PN ---
Progress Note - Progress Note Date of Service: 05/11/19 SOAP: Subjective: c/o abd pain, and discomfort from the NG Tube[] Objective: Temp Pulse Resp BP Pulse Ox 97.2 F 82 18 120/53 95 05/11/19 02:51 05/11/19 02:51 05/11/19 11:19 05/11/19 02:51 05/11/19 02:51 CT Scan 05/10: IMPRESSION: 1. Again seen is a large midline abdominal hernia/diastases recti allowing loops of bowel to herniate into the patient's pannus. There has been interval development of signs of small bowel obstruction with the small bowel measuring 4.4 cm in diameter. The transition point potentially occurs in the inferior, left of midline portion of the herniated loops of bowel within the pannus. 2. Additional chronic and degenerative changes noted in the body the report unlikely to be directly related to the patient's current ER presentation. HEENT: NGT in place Left nare. tube at 30mm at nare Chest : CTA CVS: RRR ABD: tender large non reducible ventral hernia, soft to palp remaining abdomen with mild tenderness to palpation Assessment: SBO and large non reducible ventral hernia Plan: NGT was advanced at bedside, 120cc of output removed. will get x ray to check positioning will continue to follow. May need replacement of ngt. Above D/W Dr Munoz[]
[2019-05-11] MEDS: D5LR 20 MEQ KCL 1000 ML BAG* 1,000 ML IV SCH (21:50)
[2019-05-12] MEDS: Morphine INJ* 4 MG/ML 1 ML SYRINGE (NEW SYRINGE VERSION) IV PRN ×5 (01:02→19:55)
[2019-05-12] MEDS: Ondansetron INJ* 2 MG/ML VIAL IV PRN ×5 (01:03→20:03)
[2019-05-12] MEDS: Heparin VIAL(*) 5000 UNITS/ML VIAL (FIVE THOUSAND) SUBCUT SCH ×3 (05:59→22:03)
[2019-05-12] MEDS: Levothyroxine INJ* 100 MCG/5 ML VIAL IV SCH (05:59)
[2019-05-12] MEDS: Lidocaine 2% VISCOUS* 15 ML UDC SWISH SPIT PRN ×2 (05:59→22:02)
[2019-05-12 06:40] LABS: ABS Eosinophils 0.1 10^3/ul (0-0.6); ABS Lymphocytes 1.2 10^3/ul (1.0-4.8); ABS Monocytes 0.6 10^3/ul (0-0.8); ABS Neutrophils 4.7 10^3/ul (1.5-7.7); Eosinophil % 1.5 %; Hematocrit 30 % (35-47); Hemoglobin 9.8 g/dL (12.0-16.0); Lymphocyte % 18.6 %; Mean Corpuscular HGB Conc 33 g/dL (31-36); Mean Corpuscular Hemoglobin 28 pg (27-31); Mean Corpuscular Volume 84 fL (80-97); Mean Platelet Volume 7.5 fL (7.4-10.4); Platelet Count 351 10^3/uL (150-450); Red Cell Distribution Width 16 % (10-15); White Blood Count 6.6 10^3/uL (3.5-10.8)
[2019-05-12 06:57] LABS: Albumin 3.1 g/dL (3.2-5.2); Albumin/Globulin Ratio 0.9 (1-3); C Reactive Protein 205.66 mg/L (<8.01); Calcium 8.6 mg/dL (8.6-10.3); EGFR African American 75.9 (>60); EGFR Non-African American 62.7 (>60); Globulin 3.4 g/dL (2-4); Phosphorus 2.1 mg/dL (2.5-5.0); Potassium 3.3 mmol/L (3.5-5.0); Total Bilirubin 0.5 mg/dL (0.2-1.0); Total Protein 6.5 g/dL (6.4-8.9)
[2019-05-12] MEDS: Mometasone/Formoter 200/5 MDI INH SCH ×2 (07:42→20:02)
[2019-05-12] MEDS ORDERED: NS 0.9% 250 ML* 250 ML ONE (10:11)
[2019-05-12] MEDS: Fluticasone NASAL SPRAY 50MCG* 16 gm SPRAY BTL BOTH NARES SCH (10:15)
[2019-05-12] MEDS: fentaNYL PATCH 50 MCG/HR TRANSDERM SCH (10:17)
[2019-05-12] MEDS ORDERED: Potassium Phosphate IV* 15 MMOLE in NS 0.9% 250 ML* 250 ML IVPB ONE (10:30)
[2019-05-12] MEDS: D5LR 20 MEQ KCL 1000 ML BAG* 1,000 ML IV SCH ×2 (11:17→22:05)
--- NOTE | 2019-05-12 15:45 | PN ---
Progress Note - Progress Note Date of Service: 05/12/19 SOAP: Subjective: Pt in bed reports feeling better than yesterday. Still C/O abd pain at ventral hernia site NGT in placxe with Increased output from yesterday[] Objective: Temp Pulse Resp BP Pulse Ox 98.0 F 83 18 147/64 96 05/12/19 11:15 05/12/19 11:15 05/12/19 14:21 05/12/19 11:15 05/12/19 07:47 Intake & Output 05/12/19 05/12/19 05/12/19 06:59 14:59 22:59 Intake Total 863 0 Output Total 1000 1900 Balance -137 -1900 Intake: IV Fluids 863 D5W LR 20 meq KCL 763 KCl/ivpremix 100 Oral 0 0 Output: NG Tube Drainage Amount 1000 Urine 1900 Other: Estimated Void Large Date of Last Bowel [id number] Movement # Bowel Movements 0 0 # Voids 0 1 Laboratory Results - last 24 hr 05/12/19 05/12/19 06:17 06:17 WBC 6.6 RBC 3.50 L Hgb 9.8 L Hct 30 L MCV 84 MCH 28 MCHC 33 RDW 16 H Plt Count 351 MPV 7.5 Neut % (Auto) 71.0 Lymph % (Auto) 18.6 [place] % (Auto) 8.6 Eos % (Auto) 1.5 Baso % (Auto) 0.3 Absolute Neuts (auto) 4.7 Absolute Lymphs (auto) 1.2 Absolute Monos (auto) 0.6 Absolute Eos (auto) 0.1 Absolute Basos (auto) 0.0 Absolute Nucleated RBC 0.0 Nucleated RBC % 0.0 Sodium 141 Potassium 3.3 L Chloride 103 Carbon Dioxide 30 Anion Gap 8 BUN 31 H Creatinine 0.86 Est GFR ( Amer) 75.9 Est GFR (Non-Af Amer) 62.7 BUN/Creatinine Ratio 36.0 H Glucose 96 Calcium 8.6 Phosphorus 2.1 L Magnesium 2.0 Total Bilirubin 0.50 AST 21 ALT 6 L Alkaline Phosphatase 65 C-Reactive Protein 205.66 H Total Protein 6.5 Albumin 3.1 L Globulin 3.4 Albumin/Globulin Ratio 0.9 L HEENT: NGT left nare with dark output Chest: CTA B/L CVS: RRR ABD: soft, Ventral Hernia soft, compressable, not reducible Tender to palpation EXT: calves non tender [] Assessment: 84 yo female with Large Ventral hernia, not reducible, PMH of SBO's with SBO.[] Plan: Continue NGT decompression, IV Fluids, Observation, non operative management.[] repeat abdominal x ray in AM
[2019-05-12] MEDS: fentaNYL Patch Check Q Shift 1 NOTE SCH (19:44)
[2019-05-13] MEDS: Morphine INJ* 4 MG/ML 1 ML SYRINGE (NEW SYRINGE VERSION) IV PRN ×5 (00:17→22:12)
[2019-05-13] MEDS: Ondansetron INJ* 2 MG/ML VIAL IV PRN ×5 (01:45→22:15)
[2019-05-13] MEDS: Heparin VIAL(*) 5000 UNITS/ML VIAL (FIVE THOUSAND) SUBCUT SCH ×3 (06:07→22:13)
[2019-05-13] MEDS: Levothyroxine INJ* 100 MCG/5 ML VIAL IV SCH (06:07)
[2019-05-13] MEDS: D5LR 20 MEQ KCL 1000 ML BAG* 1,000 ML IV SCH ×2 (06:18→15:36)
[2019-05-13] MEDS: Lidocaine 2% VISCOUS* 15 ML UDC SWISH SPIT PRN ×3 (06:18→22:40)
[2019-05-13] MEDS: Mometasone/Formoter 200/5 MDI INH SCH ×2 (07:10→20:37)
[2019-05-13] MEDS: fentaNYL Patch Check Q Shift 1 NOTE SCH ×2 (07:26→19:07)
[2019-05-13 07:43] LABS: ABS Eosinophils 0.3 10^3/ul (0-0.6); ABS Lymphocytes 1.2 10^3/ul (1.0-4.8); ABS Monocytes 0.6 10^3/ul (0-0.8); ABS Neutrophils 4.7 10^3/ul (1.5-7.7); Eosinophil % 3.9 %; Hematocrit 29 % (35-47); Hemoglobin 9.4 g/dL (12.0-16.0); Lymphocyte % 18.2 %; Mean Corpuscular HGB Conc 33 g/dL (31-36); Mean Corpuscular Hemoglobin 28 pg (27-31); Mean Corpuscular Volume 85 fL (80-97); Mean Platelet Volume 7.7 fL (7.4-10.4); Platelet Count 337 10^3/uL (150-450); Red Blood Count 3.34 10^6 /uL (3.70-4.87); Red Cell Distribution Width 15 % (10-15); White Blood Count 6.8 10^3/uL (3.5-10.8)
[2019-05-13 07:58] LABS: Albumin 2.7 g/dL (3.2-5.2); Albumin/Globulin Ratio 0.8 (1-3); BUN/Creatinine Ratio 17.5 (8-20); C Reactive Protein 126.21 mg/L (<8.01); Calcium 8.5 mg/dL (8.6-10.3); EGFR African American 108.7 (>60); EGFR Non-African American 89.8 (>60); Globulin 3.2 g/dL (2-4); Magnesium 1.6 mg/dL (1.9-2.7); Potassium 4.4 mmol/L (3.5-5.0); Total Bilirubin 0.4 mg/dL (0.2-1.0); Total Protein 5.9 g/dL (6.4-8.9)
[2019-05-13] MEDS: Fluticasone NASAL SPRAY 50MCG* 16 gm SPRAY BTL BOTH NARES SCH (08:38)
[2019-05-13] MEDS ORDERED: Magnesium Sulfate 2 GM IV* 2 GM/50 ML BAG IVPB ONE (09:40)
[2019-05-13 10:11] LABS: Phosphorus 1.1 mg/dL (2.5-5.0)
--- NOTE | 2019-05-13 17:38 | PN ---
Progress Note - Progress Note Date of Service: 05/13/19 SOAP: Subjective: Seen this morning. She reported BM and some flatus. Has abdominal pain. Objective: AVSS u/o adequate. Gen: NAD Abd:distended; soft; mild diffuse tenderness. AXR reviewed. Assessment: SBO. Clinically improving. Plan: Cont NGT. Repeat AXR am. Will follow.
[2019-05-13] MEDS: Mupirocin 2% OINT* TUBE TOPICAL SCH (22:12)
[2019-05-14] MEDS: D5LR 20 MEQ KCL 1000 ML BAG* 1,000 ML IV SCH ×3 (00:12→22:51)
[2019-05-14] MEDS: Lidocaine 2% VISCOUS* 15 ML UDC SWISH SPIT PRN ×4 (01:48→19:07)
[2019-05-14] MEDS: Ondansetron INJ* 2 MG/ML VIAL IV PRN ×4 (06:20→19:07)
[2019-05-14] MEDS: Morphine INJ* 4 MG/ML 1 ML SYRINGE (NEW SYRINGE VERSION) IV PRN ×4 (06:24→19:07)
[2019-05-14] MEDS: Levothyroxine INJ* 100 MCG/5 ML VIAL IV SCH (06:25)
[2019-05-14] MEDS: Heparin VIAL(*) 5000 UNITS/ML VIAL (FIVE THOUSAND) SUBCUT SCH ×3 (06:27→22:55)
[2019-05-14] MEDS: Mometasone/Formoter 200/5 MDI INH SCH ×2 (07:00→19:54)
[2019-05-14 07:06] LABS: Hematocrit 33 % (35-47); Hemoglobin 10.7 g/dL (12.0-16.0); Mean Corpuscular HGB Conc 33 g/dL (31-36); Mean Corpuscular Hemoglobin 28 pg (27-31); Mean Corpuscular Volume 86 fL (80-97); Mean Platelet Volume 7.6 fL (7.4-10.4); Platelet Count 360 10^3/uL (150-450); Red Blood Count 3.83 10^6 /uL (3.70-4.87); Red Cell Distribution Width 15 % (10-15); White Blood Count 8.2 10^3/uL (3.5-10.8)
[2019-05-14 07:23] LABS: Albumin 3.2 g/dL (3.2-5.2); Albumin/Globulin Ratio 0.9 (1-3); BUN/Creatinine Ratio 10.9 (8-20); C Reactive Protein 97.82 mg/L (<8.01); EGFR African American 106.7 (>60); EGFR Non-African American 88.2 (>60); Globulin 3.7 g/dL (2-4); Magnesium 1.6 mg/dL (1.9-2.7); Phosphorus 1.2 mg/dL (2.5-5.0); Potassium 3.6 mmol/L (3.5-5.0); Total Bilirubin 0.4 mg/dL (0.2-1.0); Total Protein 6.9 g/dL (6.4-8.9)
[2019-05-14] MEDS: fentaNYL Patch Check Q Shift 1 NOTE SCH ×2 (07:23→19:06)
[2019-05-14] MEDS ORDERED: Magnesium Sulfate 2 GM IV* 2 GM/50 ML BAG IVPB ONE (08:36)
[2019-05-14] MEDS ORDERED: Potassium Phosphate IV* 15 MMOLE in NS 0.9% 250 ML* 250 ML IVPB ONE (09:00)
--- NOTE | 2019-05-14 10:43 | PN ---
Progress Note - Progress Note Date of Service: 05/14/19 SOAP: Subjective: Did well overnight, passing flatus. Reports more pain this morning. Feels like need to go to BR now. Objective: Vital Signs Temp 97.2 F 05/14/19 07:41 Pulse 79 05/14/19 07:41 Resp 16 05/14/19 07:44 BP 140/61 05/14/19 07:41 Pulse Ox 97 05/14/19 07:41 Abd: distended with large hernia; soft but tender. Intake & Output 05/13/19 05/14/19 05/14/19 18:59 06:59 18:59 Intake Total 711 2110 653 Output Total 600 3000 Balance 111 -890 653 Intake: IV Fluids 591 1750 653 D5W LR 20 meq KCL 591 1750 653 IVPB 60 MG 60 Oral 0 300 NG Tube Irrigate Amount 60 60 Output: NG Tube Drainage Amount 800 Urine 600 2200 Other: Estimated Void Large Medium # Bowel Movements 1 Estimated Stool Amount Small # Voids 1 2 Laboratory Results - last 24 hr 05/14/19 05/14/19 05/14/19 06:45 06:45 06:45 WBC 8.2 RBC 3.83 Hgb 10.7 L Hct 33 L MCV 86 MCH 28 MCHC 33 RDW 15 Plt Count 360 MPV 7.6 Sodium 139 Potassium 3.6 Chloride 104 Carbon Dioxide 30 Anion Gap 5 BUN 7 Creatinine 0.64 Est GFR ( Amer) 106.7 Est GFR (Non-Af Amer) 88.2 BUN/Creatinine Ratio 10.9 Glucose 103 H Calcium 9.0 Ionized Calcium 1.19 Phosphorus 1.2 L Magnesium 1.6 L Total Bilirubin 0.40 AST 22 ALT 8 Alkaline Phosphatase 66 C-Reactive Protein 97.82 H Total Protein 6.9 Albumin 3.2 Globulin 3.7 Albumin/Globulin Ratio 0.9 L AXR no change Assessment: pSBO due to adhesions with large ventral hernia. Not improved on HD#4. Plan: Discussed with patient and daughter. She had last surgery at [facility] with Dr. Tiwari who told her hernia surgery of too great risk at that time. Consideration for needing surgical exploration and GATO +/- hernia repair. Complexity of her case warrants further discussion regarding possible transfer if she fails to improve, but favor conservative management and would continue NGT for now.
[2019-05-14] MEDS: Fluticasone NASAL SPRAY 50MCG* 16 gm SPRAY BTL BOTH NARES SCH (10:55)
[2019-05-14] MEDS: Mupirocin 2% OINT* TUBE TOPICAL SCH ×2 (11:01→20:35)
[2019-05-15] MEDS: Lidocaine 2% VISCOUS* 15 ML UDC SWISH SPIT PRN ×3 (00:16→13:51)
[2019-05-15] MEDS: Ondansetron INJ* 2 MG/ML VIAL IV PRN ×3 (00:17→13:51)
[2019-05-15] MEDS: Morphine INJ* 4 MG/ML 1 ML SYRINGE (NEW SYRINGE VERSION) IV PRN ×3 (00:17→13:51)
[2019-05-15] MEDS: Levothyroxine INJ* 100 MCG/5 ML VIAL IV SCH (06:54)
[2019-05-15] MEDS: Heparin VIAL(*) 5000 UNITS/ML VIAL (FIVE THOUSAND) SUBCUT SCH ×3 (06:55→21:05)
[2019-05-15] MEDS: fentaNYL Patch Check Q Shift 1 NOTE SCH ×2 (07:23→19:25)
[2019-05-15 08:15] LABS: ABS Eosinophils 0.4 10^3/ul (0-0.6); ABS Lymphocytes 1.2 10^3/ul (1.0-4.8); ABS Monocytes 0.8 10^3/ul (0-0.8); Eosinophil % 4.7 %; Hematocrit 31 % (35-47); Hemoglobin 9.9 g/dL (12.0-16.0); Lymphocyte % 14.4 %; Mean Corpuscular HGB Conc 32 g/dL (31-36); Mean Corpuscular Hemoglobin 28 pg (27-31); Mean Corpuscular Volume 86 fL (80-97); Mean Platelet Volume 7.6 fL (7.4-10.4); Nucleated Red Blood Cells % 0.1; Platelet Count 344 10^3/uL (150-450); Red Blood Count 3.58 10^6 /uL (3.70-4.87); Red Cell Distribution Width 15 % (10-15); White Blood Count 8.5 10^3/uL (3.5-10.8)
[2019-05-15 08:20] LABS: Albumin/Globulin Ratio 0.9 (1-3); BUN/Creatinine Ratio 9.2 (8-20); C Reactive Protein 81.64 mg/L (<8.01); Calcium 8.7 mg/dL (8.6-10.3); EGFR African American 104.8 (>60); EGFR Non-African American 86.6 (>60); Globulin 3.4 g/dL (2-4); Magnesium 1.6 mg/dL (1.9-2.7); Phosphorus 2.3 mg/dL (2.5-5.0); Potassium 4.1 mmol/L (3.5-5.0); Total Bilirubin 0.4 mg/dL (0.2-1.0); Total Protein 6.4 g/dL (6.4-8.9)
[2019-05-15] MEDS: Mometasone/Formoter 200/5 MDI INH SCH ×2 (08:30→19:24)
[2019-05-15] MEDS: fentaNYL PATCH 50 MCG/HR TRANSDERM SCH (08:43)
[2019-05-15] MEDS: Fluticasone NASAL SPRAY 50MCG* 16 gm SPRAY BTL BOTH NARES SCH (08:45)
[2019-05-15] MEDS: Mupirocin 2% OINT* TUBE TOPICAL SCH ×2 (08:46→21:04)
[2019-05-15] MEDS: D5LR 20 MEQ KCL 1000 ML BAG* 1,000 ML IV SCH ×2 (09:07→18:11)
--- NOTE | 2019-05-15 10:46 | PN ---
Progress Note - Progress Note Date of Service: 05/15/19 SOAP: Subjective: Comfortable in Bed. NAD Reports flatus yesterday and BM's over the weekend of formed stool[] Objective: Temp Pulse Resp BP Pulse Ox 97.6 F 94 18 150/57 97 05/15/19 06:00 05/15/19 08:32 05/15/19 10:25 05/15/19 06:00 05/15/19 08:32 Intake & Output 05/13/19 05/14/19 05/15/19 05/16/19 06:59 06:59 06:59 06:59 Intake Total 2985 2821 3084 0 Output Total 3100 3600 900 Balance -115 -779 2184 0 Intake: IV Fluids 2303 2341 3084 D5W LR 20 meq KCL 2303 2341 2829 k+phosphate 255 IVPB 222 60 KCl/ivpremix 222 MG 60 Oral 400 300 0 0 NG Tube Irrigate Amount 60 120 Output: NG Tube Drainage Amount 800 800 Urine 2300 2800 900 Other: Estimated Void Large Medium Large Date of Last Bowel [id number] Movement # Bowel Movements 1 1 0 Estimated Stool Amount Medium Small Small # Voids 1 2 0 AXR of 05/13 showed worsening SBO vs Ileus and AXR 05/14 was unchanged ABD: Large ventral hernia, not reducible, + BS's, soft, non tender, compressible, + flatus during exam EXT: calves soft, non tender Assessment: 84 yo female with PSBO due to adhesions and large ventral hernia, responding well to conservative non operative management, now with + flatus and BM's, improved Physical Exam on HD#5 compared to my exam on HD #2[] Plan: Pt and daughter discussed mgmnt with Dr Wu yesterday, continued conservative non operative mgmnt and NGT was the plan due to the complex nature of her condition. Do to her improved physical exam, I would continue same. Will D/W surgeon. []
[2019-05-15] MEDS ORDERED: Magnesium Sulfate 2 GM IV* 2 GM/50 ML BAG IVPB ONE (10:49)
[2019-05-15] MEDS ORDERED: Potassium Phosphate IV* 10 MMOLE in NS 0.9% 250 ML* 250 ML IVPB ONE (10:49)
--- NOTE | 2019-05-15 16:26 | PN ---
Progress Note - Progress Note Date of Service: 05/15/19 SOAP: Subjective: She has less pain today Some more flatus today, BM yesterday Objective: Temp Pulse Resp BP Pulse Ox 97.1 F 78 16 138/68 100 05/15/19 14:00 05/15/19 14:00 05/15/19 14:56 05/15/19 14:00 05/15/19 14:00 PEX: Large ventral incisional hernia-not completely reducible and mildly tender-- Assessment: SBO with large incisional hernia Plan: Overall slightly better-passing some flatus, NGT output slightly less No urgent indication for surgical intervention at present, continue present course Consider repeat CT scan if no improvement in next 24-48 hours.
[2019-05-16] MEDS: Lidocaine 2% VISCOUS* 15 ML UDC SWISH SPIT PRN ×5 (00:38→19:08)
[2019-05-16] MEDS: Ondansetron INJ* 2 MG/ML VIAL IV PRN ×6 (00:39→23:46)
[2019-05-16] MEDS: Morphine INJ* 4 MG/ML 1 ML SYRINGE (NEW SYRINGE VERSION) IV PRN ×4 (00:50→23:47)
[2019-05-16] MEDS: D5LR 20 MEQ KCL 1000 ML BAG* 1,000 ML IV SCH ×2 (02:20→12:29)
[2019-05-16] MEDS: Heparin VIAL(*) 5000 UNITS/ML VIAL (FIVE THOUSAND) SUBCUT SCH ×3 (05:42→23:47)
[2019-05-16] MEDS: Levothyroxine INJ* 100 MCG/5 ML VIAL IV SCH (06:03)
[2019-05-16 06:24] LABS: Calcium 8.9 mg/dL (8.6-10.3); Magnesium 1.8 mg/dL (1.9-2.7); Potassium 4.6 mmol/L (3.5-5.0)
[2019-05-16 06:30] LABS: BUN/Creatinine Ratio 8.2 (8-20); EGFR African American 91.7 (>60); EGFR Non-African American 75.8 (>60); Phosphorus 2.8 mg/dL (2.5-5.0)
[2019-05-16] MEDS: Mometasone/Formoter 200/5 MDI INH SCH ×2 (07:55→19:34)
[2019-05-16] MEDS ORDERED: Magnesium Sulfate 1 GM IV* 1 GM/100 ML BAG IV ONE (08:49)
[2019-05-16] MEDS: Fluticasone NASAL SPRAY 50MCG* 16 gm SPRAY BTL BOTH NARES SCH (09:26)
[2019-05-16] MEDS: fentaNYL Patch Check Q Shift 1 NOTE SCH ×2 (09:37→19:08)
[2019-05-16] MEDS: Mupirocin 2% OINT* TUBE TOPICAL SCH (10:09)
--- NOTE | 2019-05-16 10:20 | PN ---
Progress Note - Progress Note Date of Service: 05/16/19 SOAP: Subjective: pt seen and examined. Feeling bnetter. No abdo pain. back pain at baseline. no nausea, some flatus. BM yesterday, none today. Objective: Temp Pulse Resp BP Pulse Ox 97.2 F 96 18 144/68 96 05/16/19 06:34 05/16/19 07:58 05/16/19 09:27 05/16/19 06:34 05/16/19 07:58 Intake & Output 05/15/19 05/16/19 05/16/19 22:59 06:59 14:59 Intake Total 0 1486 Output Total 1999 Balance -1999 1486 NGT 700cc / 24 hrs ( tube being flushed approx 100cc per shift A and ox3, nad abdo: soft/ ND/ NT hypoactive, but not high pitched BS Assessment: resolving SBO Plan: d/c NGT cont NPO for now IVF
[2019-05-16] MEDS: Morphine 10 MG/ML VIAL (1 ml) IV PRN ×2 (14:02→19:09)
--- NOTE | 2019-05-16 18:55 | CONSULT ---
Subjective Date of Service: 05/16/19 Interval History: Ms. Duke is an 84 yo female with PMH significant for asthma, HTN, hypothyroidism , chronic LE edema, spinal stenosis, scoliosis with neuropathy, anxiety, depression, osteoarthritis, and chronic pain. She presented to the hospital with complaints of ABD, nausea, and vomiting; she was admitted to the hospital for a small bowel obstruction. She presented to the hospital with a chronic wound to the left foot, this wound has been present for 3 months. She follows with Dr. Orourke for this. She treats the area with ABX ointment and a bandaid at home. Patient seen and examined at bedside. Family History: Unchanged from Admission Social History: Unchanged from Admission Past Medical History: Unchanged from Admission Review of Systems - Measurements Intake and Output: Intake and Output Last 24 Hours 05/14/19 05/15/19 05/16/19 05/17/19 06:59 06:59 06:59 06:59 Intake Total 2821 3084 1486 1800 Output Total 3600 900 2000 1600 Balance -779 2184 -514 200 Intake: IV Fluids 2341 3084 1410 1700 D5W LR 20 meq KCL 2341 2829 1410 1600 MG 100 k+phosphate 255 IVPB 60 76 100 D5W LR 20 meq KCL 76 MG 60 100 Oral 300 0 0 0 NG Tube Irrigate Amount 120 Output: NG Tube Drainage Amount 800 700 Urine 2800 900 1300 1600 Other: Estimated Void Medium Large Medium Date of Last Bowel 05/14/19 Movement # Bowel Movements 1 0 0 Estimated Stool Amount Small Small # Voids 2 0 2 - Review of Systems Constitutional Symptoms: Negative: Fever, Other - Chills Dermatology: Positive: Other - 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 Neurology: Positive: Other - Peripheral neuropathy Objective Active Medications: Albuterol (Ventolin Hfa Inhaler*) 2 puff INH Q4HR PRN Reason: SHORTNESS OF BREATH Fentanyl (Duragesic Patch 50 Mcg/Hr*) 50 mcg TRANSDERM Q72H ZACH Fluticasone Propionate (Flonase Nasal [place] 50mcg*) 2 spray BOTH NARES 0800 ZACH Heparin Sodium (Porcine) (Heparin Vial(*)) 5,000 units SUBCUT Q8HR ZACH Potassium Cl/Dextrose/Lact Ringer's (D5lr 20 Meq Kcl 1000 Ml Bag*) 1,000 mls @ 125 mls/hr IV PER RATE ZACH Levothyroxine Sodium (Synthroid Inj*) 50 mcg IV 0600 [facility] Lidocaine (Xylocaine 2% Viscous*) 15 ml SWISH SPIT Q4H PRN Reason: Throat pain Mometasone Furoate/Formoterol Fumar (Dulera 200/5 Mdi*) 1 puff INH BID ZACH Morphine Sulfate (Morphine Inj (Syringe)*) 8 mg IV Q4H PRN Reason: PAIN - SEVERE Morphine Sulfate (Morphine 10 Mg/Ml Vial (1 Ml)) 6 mg IV Q4H PRN Reason: PAIN - MODERATE Mupirocin (Bactroban 2 % Oint*) 1 applic TOPICAL BID ZACH Ondansetron HCl (Zofran Inj*) 4 mg IV Q4H PRN Reason: NAUSEA/VOMITING Pharmacy Profile Note (Fentanyl Patch Check Q Shift) 1 note N/A 0700,1900 [facility] Vital Signs 05/16/19 05/16/19 05/16/19 11:00 14:02 15:00 Temperature 97.5 F 97.6 F Pulse Rate 88 87 Respiratory 18 18 18 Rate Blood Pressure 130/62 149/62 (mmHg) O2 Sat by Pulse 97 100 Oximetry Oxygen Devices in Use Now: None Appearance: NAD, laying in bed Ears/Nose/Mouth/Throat: Mucous Membranes Moist Respiratory: Symmetrical Chest Expansion and Respiratory Effort Extremities: - - 2+ bilateral DP pulses Skin: - - See skin note below Neurological: Alert and Oriented x 3 Result Diagrams: 05/19/19 05:56 05/19/19 05:56 Additional Lab and Data: Above labs were pulled into the note when edited prior to signing, please see labs from the day of consultation below. Laboratory Tests 05/15/19 05/15/19 05/16/19 07:19 07:19 05:39 WBC 8.5 Hgb 9.9 L Hct 31 L Plt Count 344 Sodium 137 Potassium 4.6 Chloride 106 Carbon Dioxide 24 BUN 6 Creatinine 0.73 Glucose 87 C-Reactive Protein 81.64 H Diagnostic Imagin. Exam Date: 11/01/18 - MRI LOWER EXTREMITY LEFT W/O IMPRESSION: #. No evidence for loculated soft tissue plane abscess collection. Extensive soft tissue swelling as noted. #. No evidence for osteomyelitis. #. Mild osteoarthritis at the first metatarsal phalangeal joint and small nonspecific joint effusion. #. Flexor digitorum longus and flexor hallucis longus tenosynovitis. 2. Exam Date: 10/25/18 - VL ANK/BRACHIAL INDICES REPORT: Ankle-brachial indices: Right: Value (SBP) Index Brachial: 127 Posterior tibialis: 130 1.0 Dorsalis pedis: 141 1.11 Left: Value (SBP) Index Brachial: 116 Posterior tibialis: 107 0.84 Dorsalis pedis: 127 1.00 Doppler waveforms (acquired at rest): In the interrogated lower extremity arteries, Doppler waveforms are triphasic in the right lower extremity and biphasic with wide waveforms in the left lower extremity. Volume pulse recordings (acquired at rest): Borderline claudication values measured at the right posterior tibial artery with mildly deranged and/or reduced amplitude arterial waveforms in the left leg relative to the right leg. IMPRESSION: No evidence of claudication or significant arterial insufficiency by vascular ultrasound [place] standards. Skin Deviation Note - Skin Deviation Findings Left medial foot - Ulcer measures 1 cm x 0.9 cm x 0.1 cm. The wound base and periwound is calloused. THe surrounding skin is intact. No drainage. Wound Problem/Plan Assessment: Ms. Duke is an 84 yo female with PMH significant for asthma, HTN, hypothyroidism , chronic LE edema, spinal stenosis, scoliosis with neuropathy, anxiety, depression, osteoarthritis, and chronic pain. She presented to the hospital with complaints of ABD, nausea, and vomiting; she was admitted to the hospital for a small bowel obstruction. She presented to the hospital with a chronic wound to the left foot. 1. Left medial foot ulcer, suspect neuropathic non pressure ulcer. This wound has been present for 3 months. She had an MRI in October 2018, with no signs of osteomyelitis. Normal ABIs in October 2018. Recommend applying ABX ointment and a bandage, change daily. Consider updating ABIs and MRI to evaluate for osteomyelitis. Consider referral to the wound clinic outpatient. 2. Scoliosis with neuropathy. 3. Diet. NPO. 4. Code Status. Full Code. 5. Disposition. Inpatient, disposition per primary medicine team. Is Patient a Wound Clinic Patient: No - Has an upcoming appointment per Pt Counseling and/or Coordination of Care Minutes: 20 Points of Discussion: TIME SPENT: Time for this wound consultation was 20 minutes and 10 minutes was spent at bedside discussing history with the patient; removing the old dressing ; assessing, measuring, and photographing the wound; reapplying a dressing. Attending: Astrid Das
[2019-05-17] MEDS: D5LR 20 MEQ KCL 1000 ML BAG* 1,000 ML IV SCH (00:15)
[2019-05-17] MEDS: Lidocaine 2% VISCOUS* 15 ML UDC SWISH SPIT PRN (00:18)
[2019-05-17] MEDS: Mupirocin 2% OINT* TUBE TOPICAL SCH ×3 (01:39→21:57)
[2019-05-17] MEDS: Levothyroxine INJ* 100 MCG/5 ML VIAL IV SCH (05:49)
[2019-05-17] MEDS: Heparin VIAL(*) 5000 UNITS/ML VIAL (FIVE THOUSAND) SUBCUT SCH ×3 (05:50→21:56)
[2019-05-17 06:53] LABS: ABS Eosinophils 0.6 10^3/ul (0-0.6); ABS Lymphocytes 1.9 10^3/ul (1.0-4.8); ABS Monocytes 0.9 10^3/ul (0-0.8); ABS Neutrophils 5.3 10^3/ul (1.5-7.7); Eosinophil % 6.5 %; Hematocrit 30 % (35-47); Hemoglobin 9.7 g/dL (12.0-16.0); Lymphocyte % 21.9 %; Mean Corpuscular HGB Conc 33 g/dL (31-36); Mean Corpuscular Hemoglobin 28 pg (27-31); Mean Corpuscular Volume 85 fL (80-97); Mean Platelet Volume 7.4 fL (7.4-10.4); Platelet Count 334 10^3/uL (150-450); Red Blood Count 3.53 10^6 /uL (3.70-4.87); Red Cell Distribution Width 15 % (10-15); White Blood Count 8.7 10^3/uL (3.5-10.8)
[2019-05-17 07:10] LABS: BUN/Creatinine Ratio 10.1 (8-20); Calcium 8.7 mg/dL (8.6-10.3); EGFR African American 97.8 (>60); EGFR Non-African American 80.9 (>60); Magnesium 1.7 mg/dL (1.9-2.7); Phosphorus 3.1 mg/dL (2.5-5.0); Potassium 4.1 mmol/L (3.5-5.0); Total Protein 6.4 g/dL (6.4-8.9)
[2019-05-17 07:11] LABS: Albumin/Globulin Ratio 0.9 (1-3); Globulin 3.4 g/dL (2-4); Total Bilirubin 0.4 mg/dL (0.2-1.0)
[2019-05-17] MEDS: fentaNYL Patch Check Q Shift 1 NOTE SCH ×2 (07:14→18:51)
[2019-05-17] MEDS: Mometasone/Formoter 200/5 MDI INH SCH ×2 (07:22→20:51)
[2019-05-17] MEDS: Fluticasone NASAL SPRAY 50MCG* 16 gm SPRAY BTL BOTH NARES SCH (08:53)
[2019-05-17] MEDS: Ondansetron INJ* 2 MG/ML VIAL IV PRN ×4 (09:06→23:00)
[2019-05-17] MEDS: Morphine 10 MG/ML VIAL (1 ml) IV PRN ×3 (09:07→23:00)
[2019-05-17] MEDS ORDERED: Magnesium Sulfate 2 GM IV* 2 GM/50 ML BAG IVPB ONE (10:29)
[2019-05-17] MEDS ORDERED: D5LR 20 MEQ KCL 1000 ML BAG* 1,000 ML IV SCH (10:33)
[2019-05-17] MEDS: Polyethylene Glycol 3350* 17 GM PACKET PO SCH (11:08)
--- NOTE | 2019-05-17 12:48 | PN ---
Progress Note - Progress Note Date of Service: 05/17/19 SOAP: Subjective: Comfortable in bed, NAD. NGT has been removed, Pt reports + BM today [] Objective: Temp Pulse Resp BP Pulse Ox 98.5 F 81 16 132/53 100 05/17/19 11:00 05/17/19 11:00 05/17/19 11:00 05/17/19 11:00 05/17/19 11:00 Laboratory Last Values Abnormal Lab Results 05/17/19 05/17/19 06:22 06:22 WBC 8.7 RBC 3.53 L Hgb 9.7 L Hct 30 L MCV 85 MCH 28 MCHC 33 RDW 15 Plt Count 334 MPV 7.4 Neut % (Auto) 60.9 Lymph % (Auto) 21.9 [place] % (Auto) 10.2 Eos % (Auto) 6.5 Baso % (Auto) 0.5 Absolute Neuts (auto) 5.3 Absolute Lymphs (auto) 1.9 Absolute Monos (auto) 0.9 H Absolute Eos (auto) 0.6 Absolute Basos (auto) 0.0 Absolute Nucleated RBC 0.0 Nucleated RBC % 0.0 Sodium 138 Potassium 4.1 Chloride 108 Carbon Dioxide 24 Anion Gap 6 BUN 7 Creatinine 0.69 Est GFR ( Amer) 97.8 Est GFR (Non-Af Amer) 80.9 BUN/Creatinine Ratio 10.1 Glucose 91 Calcium 8.7 Phosphorus 3.1 Magnesium 1.7 L Total Bilirubin 0.40 AST 21 ALT 8 Alkaline Phosphatase 73 Total Protein 6.4 Albumin 3.0 L Globulin 3.4 Albumin/Globulin Ratio 0.9 L PE: Chest: CTA B/L ABD: Large ventral incisional hernia, soft, compressible, non tender, + BS's EXT: calves soft, non tender [] Assessment: 84 yo female with hx mult abd surgeries, PSBO's,Chronic pain meds, with resolving SBO now with + Flatus and BM's tolerating clears. [] Plan: continue non surgical management, Miralax daily, advance diet as tolerated []
[2019-05-17] MEDS: Morphine INJ* 4 MG/ML 1 ML SYRINGE (NEW SYRINGE VERSION) IV PRN (13:51)
[2019-05-18] MEDS: Morphine 10 MG/ML VIAL (1 ml) IV PRN ×2 (04:05→09:45)
[2019-05-18] MEDS: Ondansetron INJ* 2 MG/ML VIAL IV PRN ×2 (04:06→09:45)
[2019-05-18] MEDS: Levothyroxine INJ* 100 MCG/5 ML VIAL IV SCH (06:38)
[2019-05-18] MEDS: Heparin VIAL(*) 5000 UNITS/ML VIAL (FIVE THOUSAND) SUBCUT SCH ×4 (06:38→20:55)
[2019-05-18] MEDS: Mometasone/Formoter 200/5 MDI INH SCH ×2 (07:21→19:23)
[2019-05-18] MEDS: fentaNYL Patch Check Q Shift 1 NOTE SCH ×2 (07:29→19:43)
[2019-05-18 07:32] LABS: Calcium 8.4 mg/dL (8.6-10.3); Magnesium 1.9 mg/dL (1.9-2.7); Potassium 4.5 mmol/L (3.5-5.0)
[2019-05-18 07:37] LABS: EGFR African American 84.9 (>60); EGFR Non-African American 70.2 (>60)
[2019-05-18] MEDS: Polyethylene Glycol 3350* 17 GM PACKET PO SCH (09:46)
[2019-05-18] MEDS: Mupirocin 2% OINT* TUBE TOPICAL SCH ×2 (09:50→20:56)
[2019-05-18] MEDS: Fluticasone NASAL SPRAY 50MCG* 16 gm SPRAY BTL BOTH NARES SCH (09:50)
[2019-05-18] MEDS: fentaNYL PATCH 50 MCG/HR TRANSDERM SCH (10:53)
[2019-05-18] MEDS: Ondansetron ODT TAB* 4 MG PO PRN ×2 (11:51→20:54)
[2019-05-18] MEDS: Morphine ORAL.SOLN 10 mg* 2 MG/ML UDC 5 ml PO PRN ×3 (11:53→21:19)
--- NOTE | 2019-05-18 12:57 | PN ---
Progress Note - Progress Note Date of Service: 05/18/19 SOAP: Subjective: Pt seen and examined. Feeling better. Difficult night with some vomiting ( about 30cc). pos flatus and BM. Some abdo pain, but mostly her typical back pain Objective: Temp Pulse Resp BP Pulse Ox 98.2 F 86 20 125/54 100 05/18/19 11:10 05/18/19 11:10 05/18/19 11:53 05/18/19 11:10 05/18/19 11:10 NGt out abdo: soft/ ND/ NT soft ventral hernia -reduces but likely loss of domain CT contrast in colon. SB caliber wnl; resolvin SBO Assessment: resolving SBO, minimal vomit overnight not outreach representative of obstruction Plan: [advance diet PT d/c planning
[2019-05-18] MEDS: Prochlorperazine TAB* 10 MG PO PRN ×2 (16:37→22:02)
[2019-05-18] MEDS: Pantoprazole TAB * 40 MG TAB PO SCH (16:37)
--- NOTE | 2019-05-18 22:49 | PN ---
PROGRESS NOTE: DATE OF SERVICE: 05/18/19 HISTORY: The patient is feeling somewhat better. She did vomit last night. She has been able to take in liquids today. She still has pain, most of it is in her back but some also in the abdomen. The patient was seen with daughter, Carli. She has not had a bowel movement today but did have one yesterday. She is passing gas. PHYSICAL EXAMINATION: Vital Signs: Blood pressure 136/55, pulse 80, respirations 20, temperature afebrile. O2 sat 98%. She looks well. Chest is clear. Heart: Normal S1, S2. Abdomen: Large ventral hernia, bowel sounds active. Mild tenderness over the ventral hernia. Extremities: Without calf tenderness or edema. DIAGNOSTIC STUDIES/LAB DATA: Chemistries: Sodium 125, potassium 4.5, chloride 108, CO2 of 19, BUN/creatinine 7/0.78, glucose 85, calcium 8.4, magnesium is up to 1.9. CT scan report shows resolution of the small bowel obstruction. IMPRESSION: Resolving small bowel obstruction. We discussed pain control. The patient does not want to go back on oxycodone or OxyContin. She will continue the fentanyl patch. Her IV is infiltrated. We will start her on oral morphine and see if that works for her. We will continue advancing her diet. She is currently on clear liquids and will move to a full liquid diet. The patient continues to be followed by Surgery. Hopefully, she will be able to go home soon if she tolerates eating. [id number]/[facility] #: [id number] FUNMILAYO
[2019-05-19] MEDS: Morphine ORAL.SOLN 10 mg* 2 MG/ML UDC 5 ml PO PRN ×4 (02:20→21:26)
[2019-05-19] MEDS: Levothyroxine INJ* 100 MCG/5 ML VIAL IV SCH (06:10)
[2019-05-19] MEDS: Levothyroxine TAB* 100 MCG TAB PO SCH (06:11)
[2019-05-19] MEDS: Heparin VIAL(*) 5000 UNITS/ML VIAL (FIVE THOUSAND) SUBCUT SCH ×3 (06:12→21:26)
[2019-05-19 06:22] LABS: ABS Basophils 0.1 10^3/ul (0-0.2); ABS Eosinophils 0.5 10^3/ul (0-0.6); ABS Lymphocytes 2.1 10^3/ul (1.0-4.8); ABS Monocytes 0.9 10^3/ul (0-0.8); ABS Neutrophils 5.1 10^3/ul (1.5-7.7); Eosinophil % 6.3 %; Hematocrit 29 % (35-47); Hemoglobin 9.5 g/dL (12.0-16.0); Lymphocyte % 24.7 %; Mean Corpuscular HGB Conc 33 g/dL (31-36); Mean Corpuscular Hemoglobin 28 pg (27-31); Mean Corpuscular Volume 85 fL (80-97); Mean Platelet Volume 7.4 fL (7.4-10.4); Platelet Count 388 10^3/uL (150-450); Red Blood Count 3.45 10^6 /uL (3.70-4.87); Red Cell Distribution Width 15 % (10-15); White Blood Count 8.7 10^3/uL (3.5-10.8)
[2019-05-19 06:34] LABS: Albumin 2.9 g/dL (3.2-5.2); Albumin/Globulin Ratio 0.7 (1-3); BUN/Creatinine Ratio 10.4 (8-20); C Reactive Protein 59.33 mg/L (<8.01); Calcium 8.6 mg/dL (8.6-10.3); EGFR African American 86.2 (>60); EGFR Non-African American 71.2 (>60); Globulin 3.9 g/dL (2-4); Potassium 3.6 mmol/L (3.5-5.0); Total Bilirubin 0.4 mg/dL (0.2-1.0); Total Protein 6.8 g/dL (6.4-8.9)
[2019-05-19] MEDS: fentaNYL Patch Check Q Shift 1 NOTE SCH ×2 (07:12→18:34)
[2019-05-19] MEDS: Mometasone/Formoter 200/5 MDI INH SCH ×2 (07:48→19:37)
[2019-05-19] MEDS: Pantoprazole TAB * 40 MG TAB PO SCH (08:54)
[2019-05-19] MEDS: Prochlorperazine TAB* 10 MG PO PRN ×2 (08:54→13:45)
[2019-05-19] MEDS: Ondansetron ODT TAB* 4 MG PO PRN ×2 (08:55→21:42)
[2019-05-19] MEDS: Polyethylene Glycol 3350* 17 GM PACKET PO SCH (09:03)
--- NOTE | 2019-05-19 10:41 | PN ---
Progress Note - Progress Note Date of Service: 05/19/19 SOAP: Subjective: Comfortable, had just ambulated to the door with assist. C/O pain in right hand ? Reports tolerating diet, + BM's[] Objective: Vital Signs Temp Pulse Resp BP Pulse Ox 97.7 F 88 18 132/62 95 05/19/19 07:21 05/19/19 07:52 05/19/19 08:57 05/19/19 07:21 05/19/19 07:52 Intake & Output 05/18/19 05/19/19 05/19/19 22:59 06:59 14:59 Intake Total 0 0 Output Total 140 Balance -140 0 PE: CHEST: CTA ABD: Large hernia soft, not reducible, non tender [] Assessment: 84 yo female with hx mult abd surgeries, PSBO's,Chronic pain meds, with resolving SBO now with + Flatus and +BM's tolerating diet Resolved PSBO/SBO responded to conservative management, NGT[] Plan: Continue Miralax daily no surgical issues[]
[2019-05-19] MEDS: Mupirocin 2% OINT* TUBE TOPICAL SCH ×2 (10:43→21:34)
[2019-05-19] MEDS: Fluticasone NASAL SPRAY 50MCG* 16 gm SPRAY BTL BOTH NARES SCH (10:43)
[2019-05-19] MEDS: Colchicine* 0.6 MG TAB PO SCH ×3 (13:46→21:32)
--- NOTE | 2019-05-19 14:27 | PN ---
PROGRESS NOTE: DATE OF SERVICE: 05/19/19 HISTORY: The patient is feeling better with regards to her abdomen. She continues to have her usual abdominal and back pain. Her chief complaint today is that her right wrist is very painful. This h appened when she woke up this morning. She cannot move it without extreme pain. She is having bowel movements and eating. PHYSICAL EXAMINATION: Vital Signs: Blood pressure 137/60, pulse 87, respirations 18, temperature 98 .5, O2 sat 96%. She is lying in bed. She is seen with her daughter Carli. Skin is warm and dry. S he has swelling and marked tenderness of the wrist with pain with slight movement. There is some war mth there. Chest is clear. Heart: Regular. Abdomen is distended with her usual ventral hernia. Th ere is mild tenderness without rebound. Bowel sounds are active. Lower extremities are without calf tenderness or edema. LABORATORY DATA: CBC: WBC 8.7, H and H 9.5/29, MCV 85, PLT 388,000. Chemistries: Sodium 138, potas sium 3.6, chloride 106, CO2 of 25, BUN/creatinine 8/0.77. Rest of the comprehensive metabolic panel is within normal limits except for albumin slightly low at 2.9. CRP is down to 59.33. I/O 589/740. IMPRESSION: 1. Small bowel obstruction, resolving. 2. Right wrist pain, likely pseudogout. We will start colchicine and get an x-ray of the right wris t. We will check uric acid. [id number]/[facility] #: [id number]
[2019-05-19] MEDS ORDERED: Morphine ORAL.SOLN 10 mg* 2 MG/ML UDC 5 ml PO ONE (15:38)
[2019-05-20] MEDS: Morphine ORAL.SOLN 10 mg* 2 MG/ML UDC 5 ml PO PRN ×6 (02:08→23:39)
[2019-05-20] MEDS: Levothyroxine TAB* 100 MCG TAB PO SCH (06:01)
[2019-05-20] MEDS: Heparin VIAL(*) 5000 UNITS/ML VIAL (FIVE THOUSAND) SUBCUT SCH ×3 (06:03→22:06)
[2019-05-20] MEDS: fentaNYL Patch Check Q Shift 1 NOTE SCH ×2 (07:06→18:09)
[2019-05-20] MEDS: Mometasone/Formoter 200/5 MDI INH SCH ×3 (07:14→19:02)
[2019-05-20] MEDS ORDERED: methylPREDNISolone ACETATE 80* 80 MG/ML 1 ML VIAL INTRAARTIC ONE (08:00)
[2019-05-20] MEDS: Polyethylene Glycol 3350* 17 GM PACKET PO SCH (08:24)
[2019-05-20 08:32] LABS: ABS Basophils 0.1 10^3/ul (0-0.2); ABS Eosinophils 0.2 10^3/ul (0-0.6); ABS Lymphocytes 2.1 10^3/ul (1.0-4.8); ABS Neutrophils 7.5 10^3/ul (1.5-7.7); Eosinophil % 1.9 %; Hematocrit 31 % (35-47); Hemoglobin 10.3 g/dL (12.0-16.0); Mean Corpuscular HGB Conc 33 g/dL (31-36); Mean Corpuscular Hemoglobin 28 pg (27-31); Mean Corpuscular Volume 84 fL (80-97); Mean Platelet Volume 6.8 fL (7.4-10.4); Nucleated Red Blood Cells % 0.1; Platelet Count 403 10^3/uL (150-450); Red Blood Count 3.69 10^6 /uL (3.70-4.87); Red Cell Distribution Width 15 % (10-15); White Blood Count 10.9 10^3/uL (3.5-10.8)
--- NOTE | 2019-05-20 08:35 | PN ---
Progress Note - Progress Note Date of Service: 05/20/19 Note: Pt seen and examined. Full note being dictated. 84 yo F admitted with hernia/ bowel obstruction with acute left wrist pain. Concern for pseudogout. Today increasing pain and erythema beyond wrist. Agree likely pseudogout but will hold on an injection until erythema resolved. Ordered wrist brace and labs. Will follow.
[2019-05-20] MEDS ORDERED: predniSONE TAB* 20 MG PO ONE (08:36)
[2019-05-20] MEDS ORDERED: Lidocaine 1% MPF ** 5 ML VIAL INJ ONE (09:00)
--- NOTE | 2019-05-20 10:39 | CONS ---
CONSULTATION REPORT: DATE OF CONSULT: 05/20/19 CHIEF COMPLAINT: Right wrist pain. HISTORY OF PRESENT ILLNESS: The patient was admitted for she has a abdominal hernia with possible small bowel obstruction. She was doing well, was getting ready for discharge and woke up with acute right wrist pain that was so severe. She has had a history of right wrist pain in the past and underwent a previous injection by my colleague Dr. Bella in the past. She has severe arthritis and that she probably had a pseudogout. Labs, CRP was slowly trending down yesterday was about 59, but she has had increasing pain she now has redness and erythema. She has difficulty moving her wrist. She is sensate to light touch grossly distally with the right brisk cap refill but tender volarly dorsally. There is concern for pseudogout and an injection was requested. 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 PAST SURGICAL HISTORY: Appendectomy; hysterectomy; abdominal wall hernia repair complication, required colon resection; persistent ventral hernia; right total knee replacement, infected in 2016, removed with antibiotic spacer, then new prosthesis put in November 2017, she had finished antibiotics; left total knee replacement done in 2014; bilateral carpal tunnel surgeries; cataract surgery. CURRENT MEDICATIONS: 1. Albuterol. 2. Colchicine. 3. Fentanyl patch. 4. Fluticasone. 5. Flonase. 6. Heparin. 7. Levothyroxine. 8. Mometasone. 9. Morphine. 10. Mupirocin, 11. Pantoprazole. 12. Polyethylene glycol. 13. Prednisone, which is ordered today. 14. Compazine. ALLERGIES: Allergies to IODINE cause anaphylactic shock, PENICILLIN causes hives, ADHESIVE TAPE causes RASH, CIPRO, ERYTHROMYCIN, SULFA, TETRACYCLINE cause nausea and vomiting. FAMILY HISTORY: Mother with colon cancer. Father with ulcerative colitis. Brother with lung cancer. SOCIAL HISTORY: She is , lives with her son. She is full code. Sam is her healthcare proxy. She has a community ambulator. REVIEW OF SYSTEMS: A 14 points of review of systems reviewed with the patient significant for recent nausea, abdominal distension, bowel obstruction as well as right wrist pain. No fevers or chills. No history of infection. She does have an open left great toe wound. PHYSICAL EXAM: She is in no acute distress. She is lying in the bed. She is uncomfortable, but in no acute distress. Vitals: Temperature of 98.2, pulse 86 , respiratory rate 18, O2 saturation 98 on room air, blood pressure 111/42. Examination of the right wrist demonstrates that she has swelling and erythema and warmth, the erythema tracks approximately about the middle aspect of the forearm and and proximally to the MCP joint. She also has a tracing volarly. She has difficulty with flexion and extension of the wrist passively and can move it, flexing and extending it, when I elevate it, it is a little bit easier for her to flex and extend. She is sensate to light touch about the first dorsal web space, index, long finger, and small finger. She has 2+ radial pulse , diffusely tender about the area of swelling. No specific tender spot and again it is quite warm. She does have a left great toe wound as well that is being dressed with a Band-Aid. DIAGNOSTIC STUDIES/LAB DATA: X-rays were reviewed that demonstrates severe osteoarthritis of the STT joint. Repeat labs were ordered today that demonstrated a white count of 10.9, which is elevated from 8.7, hematocrit of 31, platelet of 403, CRP of 131, which is up from 59.33 yesterday. ASSESSMENT AND PLAN: She does have possibly pseudogout, although she has had several doses of colchicine and it has not seemed to make a difference, which seems to be getting worse. She does overlying erythema and redness. At this point, I do not feel safe injecting her wrist because of the surrounding erythema there could be a possible early cellulitis, although this did not present like typical cellulitis. I would recommend antiinflammatory, ice, heat, I am giving her a brace, elevation. I wanted her to work on range of motion of the wrist and I will evaluate her again to see if she is a candidate for an injection, but I am concerned about the elevated CRP and the overlying erythema. I discussed this with Dr. Medellin. I will see the patient back tomorrow. [id number]/[facility] #: [id number] [facility]PITAL[facility]
[2019-05-20] MEDS: Ondansetron ODT TAB* 4 MG PO PRN ×2 (10:40→19:15)
[2019-05-20] MEDS: Pantoprazole TAB * 40 MG TAB PO SCH (10:43)
[2019-05-20] MEDS: Mupirocin 2% OINT* TUBE TOPICAL SCH ×2 (10:43→22:05)
[2019-05-20] MEDS: Fluticasone NASAL SPRAY 50MCG* 16 gm SPRAY BTL BOTH NARES SCH (10:43)
[2019-05-20] MEDS: Colchicine* 0.6 MG TAB PO SCH ×2 (10:44→22:05)
[2019-05-20] MEDS: Prochlorperazine TAB* 10 MG PO PRN (23:39)
[2019-05-21] MEDS ORDERED: Lidocaine 1% MPF ** 5 ML VIAL INJ SCH (06:00)
[2019-05-21] MEDS ORDERED: methylPREDNISolone ACETATE 80* 80 MG/ML 1 ML VIAL INTRAARTIC SCH (06:00)
[2019-05-21] MEDS: Morphine ORAL.SOLN 10 mg* 2 MG/ML UDC 5 ml PO PRN ×3 (06:16→18:07)
[2019-05-21] MEDS: Ondansetron ODT TAB* 4 MG PO PRN (06:16)
[2019-05-21] MEDS: Levothyroxine TAB* 100 MCG TAB PO SCH (06:16)
[2019-05-21] MEDS: Heparin VIAL(*) 5000 UNITS/ML VIAL (FIVE THOUSAND) SUBCUT SCH ×3 (06:18→21:27)
[2019-05-21] MEDS: fentaNYL Patch Check Q Shift 1 NOTE SCH ×3 (06:42→19:07)
[2019-05-21] MEDS: Mometasone/Formoter 200/5 MDI INH SCH ×2 (07:08→19:22)
--- NOTE | 2019-05-21 09:44 | PN ---
Progress Note - Progress Note Date of Service: 05/21/19 Note: Pt seen and examined. Doing better. Icing and elevating. Temp Pulse Resp BP Pulse Ox 97.2 F 85 18 127/57 98 05/21/19 04:11 05/21/19 07:09 05/21/19 07:09 05/21/19 04:11 05/21/19 07:09 NAD. AAOx3. right wrist with less proximal erythema. shredder tender peat and erythematous spreading to MCPs. Swelling decreased. SILT grossly distally. able to move digits a little easier. A/P 84 yo F with likely pseudogout doing better ice elevate nsaids if able wrist brace as needed offered injection to patient. The patient agreed The right wrist was prepped and draped in the usual sterile fashion. A 22 g needle was used to inject 1 cc of 80 mg of depomedrol and 2 cc of lidocaine into the dorsum of the wrist. she tolerated the injection well. should follow up outpatient with myself or dr pillai in 1 weeks
[2019-05-21] MEDS: Polyethylene Glycol 3350* 17 GM PACKET PO SCH (09:47)
[2019-05-21] MEDS: Mupirocin 2% OINT* TUBE TOPICAL SCH ×2 (09:48→21:02)
[2019-05-21] MEDS: Pantoprazole TAB * 40 MG TAB PO SCH (09:49)
[2019-05-21] MEDS: Colchicine* 0.6 MG TAB PO SCH ×2 (09:49→21:00)
[2019-05-21] MEDS: fentaNYL PATCH 50 MCG/HR TRANSDERM SCH (09:51)
[2019-05-21] MEDS: Fluticasone NASAL SPRAY 50MCG* 16 gm SPRAY BTL BOTH NARES SCH (10:00)
--- NOTE | 2019-05-21 10:09 | PN ---
Subjective Date of Service: 05/21/19 Interval History: Patient doing well status post steroid injection at the right hand- tolerated procedure well. Has occasional abdominal discomfort. tolerating full liquid diet. Family History: Unchanged from Admission Social History: Unchanged from Admission Past Medical History: Unchanged from Admission Objective Active Medications: Albuterol (Ventolin Hfa Inhaler*) 2 puff INH Q4HR PRN PRN Reason: SHORTNESS OF BREATH Colchicine (Colcrys*) 0.6 mg PO BID [facility] Last Admin: 05/21/19 09:49 Dose: 0.6 mg Fentanyl (Duragesic Patch 50 Mcg/Hr*) 50 mcg TRANSDERM Q72H [facility] Last Admin: 05/21/19 09:51 Dose: 50 mcg Fluticasone Propionate (Flonase Nasal [place] 50mcg*) 2 spray BOTH NARES 0800 [facility] Last Admin: 05/20/19 10:43 Dose: 2 spray Heparin Sodium (Porcine) (Heparin Vial(*)) 5,000 units SUBCUT Q8HR [facility] Last Admin: 05/21/19 06:18 Dose: 5,000 units Levothyroxine Sodium (Synthroid Tab*) 100 mcg PO DAILY@0600 [facility] Last Admin: 05/21/19 06:16 Dose: 100 mcg Lidocaine (Xylocaine 2% Viscous*) 15 ml SWISH SPIT Q4H PRN PRN Reason: Throat pain Last Admin: 05/17/19 00:18 Dose: 15 ml Lidocaine HCl (Xylocaine Mpf 1%) 0 ml INJ ONCE [facility] Stop: 05/21/19 23:59 Methylprednisolone Acetate (Depo-Medrol 80 Mg/1ml Vial*) 80 mg INTRAARTIC ONCE [facility] Stop: 05/21/19 23:59 Mometasone Furoate/Formoterol Fumar (Dulera 200/5 Mdi*) 1 puff INH BID [facility] Last Admin: 05/21/19 07:08 Dose: 1 puff Morphine Sulfate (Morphine Oral.Soln 10 Mg*) 15 mg PO Q4H PRN PRN Reason: PAIN - SEVERE Last Admin: 05/21/19 06:16 Dose: 15 mg Mupirocin (Bactroban 2 % Oint*) 1 applic TOPICAL BID [facility] Last Admin: 05/21/19 09:48 Dose: 1 applic Ondansetron HCl (Zofran Odt Tab*) 8 mg PO Q8H PRN PRN Reason: NAUSEA/VOMITING Last Admin: 05/21/19 06:16 Dose: 8 mg Pantoprazole Sodium (Protonix Tab*) 40 mg PO DAILY [facility] Last Admin: 05/21/19 09:49 Dose: 40 mg Pharmacy Profile Note (Fentanyl Patch Check Q Shift) 1 note N/A 0700,1900 [facility] Last Admin: 05/21/19 09:53 Dose: 1 note Polyethylene Glycol/Electrolytes (Miralax*) 17 gm PO DAILY [facility] Last Admin: 05/21/19 09:47 Dose: 17 gm Prochlorperazine (Compazine Tab*) 10 mg PO Q6HR PRN PRN Reason: NAUSEA Last Admin: 05/20/19 23:39 Dose: 10 mg Vital Signs - 8 hr 05/21/19 05/21/19 05/21/19 02:15 04:11 06:16 Temperature 97.2 F Pulse Rate 75 Respiratory 16 16 16 Rate Blood Pressure 127/57 (mmHg) O2 Sat by Pulse 98 Oximetry 05/21/19 05/21/19 07:09 09:51 Temperature Pulse Rate 85 Respiratory 18 16 Rate Blood Pressure (mmHg) O2 Sat by Pulse 98 Oximetry Oxygen Devices in Use Now: None Appearance: Elderly female lying in bed, not in distress Eyes: PERRLA Ears/Nose/Mouth/Throat: Mucous Membranes Moist Respiratory: Symmetrical Chest Expansion and Respiratory Effort, Clear to Auscultation Cardiovascular: RRR, - - trace lower extermity edema bilateral lower extremities. Abdominal: - - mild generalized abdominal tenderness, abdomen is soft, non- distended. Skin: - - right hand- erythema with swelling noted. Neurological: Alert and Oriented x 3 Result Diagrams: 05/20/19 08:21 05/19/19 05:56 Assess/Plan/Problems-Billing Assessment: - Patient Problems (1) SBO (small bowel obstruction) Current Visit: Yes Status: Acute Code(s): K56.609 - UNSP INTESTNL OBST, UNSP TO PARTIAL VERSUS COMPLETE OBST SNOMED Code(s): 455418180 Comment: resolved. tolerating full liquid diet, will advance to soft. will decrease frequency of the morphine. (2) JUAQUIN (acute kidney injury) Current Visit: Yes Status: Acute Code(s): N17.9 - ACUTE KIDNEY FAILURE, UNSPECIFIED SNOMED Code(s): 81943453 Comment: resolved (3) Pseudogout Current Visit: Yes Status: Acute Code(s): M11.20 - OTHER CHONDROCALCINOSIS, UNSPECIFIED SITE SNOMED Code(s): 132947912 Comment: ortho following. status post steroid injection today. will monitor uric acid was 4.0 (4) DVT prophylaxis Current Visit: Yes Status: Acute Code(s): Z29.9 - ENCOUNTER FOR PROPHYLACTIC MEASURES, UNSPECIFIED SNOMED Code(s): 919285408 Comment: Heparin subQ
[2019-05-21] MEDS: Prochlorperazine TAB* 10 MG PO PRN (13:55)
[2019-05-22] MEDS: Morphine ORAL.SOLN 10 mg* 2 MG/ML UDC 5 ml PO PRN ×4 (00:17→21:39)
[2019-05-22] MEDS: Ondansetron ODT TAB* 4 MG PO PRN ×3 (00:17→21:39)
[2019-05-22] MEDS: Heparin VIAL(*) 5000 UNITS/ML VIAL (FIVE THOUSAND) SUBCUT SCH ×3 (05:01→21:39)
[2019-05-22] MEDS: Levothyroxine TAB* 100 MCG TAB PO SCH (05:02)
[2019-05-22] MEDS: fentaNYL Patch Check Q Shift 1 NOTE SCH ×2 (07:17→18:51)
[2019-05-22] MEDS: Fluticasone NASAL SPRAY 50MCG* 16 gm SPRAY BTL BOTH NARES SCH (07:53)
[2019-05-22] MEDS: Colchicine* 0.6 MG TAB PO SCH ×2 (07:53→20:47)
[2019-05-22] MEDS: Polyethylene Glycol 3350* 17 GM PACKET PO SCH (07:54)
[2019-05-22] MEDS: Mupirocin 2% OINT* TUBE TOPICAL SCH ×2 (07:54→20:47)
[2019-05-22] MEDS: Pantoprazole TAB * 40 MG TAB PO SCH (07:54)
[2019-05-22] MEDS: Prochlorperazine TAB* 10 MG PO PRN (07:54)
[2019-05-22] MEDS: Mometasone/Formoter 200/5 MDI INH SCH ×2 (08:01→20:31)
--- NOTE | 2019-05-22 16:13 | PN ---
Subjective Date of Service: 05/22/19 Interval History: Pt is doing ok today. She is complaining of diarrhea/loose stools last night, but none today. She started eating yesterday, without vomiting. She does admit to nausea, which she states is chronic. She c/o R hand soreness and numbness to distal digits 1-2. No other complaints today. Objective Active Medications: Albuterol (Ventolin Hfa Inhaler*) 2 puff INH Q4HR PRN Colchicine (Colcrys*) 0.6 mg PO BID [facility] Fentanyl (Duragesic Patch 50 Mcg/Hr*) 50 mcg TRANSDERM Q72H [facility] Fluticasone Propionate (Flonase Nasal [place] 50mcg*) 2 spray BOTH NARES 0800 [facility] Heparin Sodium (Porcine) (Heparin Vial(*)) 5,000 units SUBCUT Q8HR [facility] Levothyroxine Sodium (Synthroid Tab*) 100 mcg PO DAILY@0600 [facility] Lidocaine (Xylocaine 2% Viscous*) 15 ml SWISH SPIT Q4H PRN Mometasone Furoate/Formoterol Fumar (Dulera 200/5 Mdi*) 1 puff INH BID [facility] Morphine Sulfate (Morphine Oral.Soln 10 Mg*) 15 mg PO Q6H PRN Mupirocin (Bactroban 2 % Oint*) 1 applic TOPICAL BID [facility] Ondansetron HCl (Zofran Odt Tab*) 8 mg PO Q8H PRN Pantoprazole Sodium (Protonix Tab*) 40 mg PO DAILY [facility] Pharmacy Profile Note (Fentanyl Patch Check Q Shift) 1 note N/A 0700,1900 [facility] Polyethylene Glycol/Electrolytes (Miralax*) 17 gm PO DAILY [facility] Prochlorperazine (Compazine Tab*) 10 mg PO Q6HR PRN Vital Signs - 8 hr 05/22/19 05/22/19 05/22/19 09:00 11:14 11:48 Temperature 98.1 F Pulse Rate 81 Respiratory 18 16 18 Rate Blood Pressure 115/47 (mmHg) O2 Sat by Pulse 100 Oximetry 05/22/19 05/22/19 13:40 15:36 Temperature Pulse Rate Respiratory 16 16 Rate Blood Pressure (mmHg) O2 Sat by Pulse Oximetry Oxygen Devices in Use Now: None Appearance: Pt sitting up in bed with HOB elevated. She appears mildly uncomfortable. No acute distress. Eyes: No Scleral Icterus, PERRLA Ears/Nose/Mouth/Throat: NL Teeth, Lips, Gums, Clear Oropharnyx, Mucous Membranes Moist Neck: NL Appearance and Movements; NL JVP, Trachea Midline Respiratory: Symmetrical Chest Expansion and Respiratory Effort, Clear to Auscultation Cardiovascular: NL Sounds; No Murmurs; No JVD, RRR, No Edema Abdominal: - - Abd mildly distended. BS hyperactive throughout. Large ventral hernia that is easily reversible. Mildly tender to palpation throughout entire abdomen. Extremities: No Edema, No Clubbing, Cyanosis, - - R wrist brace in place. Decreased sensation to distal digits 1, 2. Neurological: Alert and Oriented x 3 Result Diagrams: 05/20/19 08:21 05/19/19 05:56 Additional Lab and Data: Above labs were pulled into the note when edited prior to signing, please see labs from the day of consultation below. Laboratory Tests 05/15/19 05/15/19 05/16/19 07:19 07:19 05:39 WBC 8.5 Hgb 9.9 L Hct 31 L Plt Count 344 Sodium 137 Potassium 4.6 Chloride 106 Carbon Dioxide 24 BUN 6 Creatinine 0.73 Glucose 87 C-Reactive Protein 81.64 H Diagnostic Imaging: . Assess/Plan/Problems-Billing Assessment: 84 PMHx HTN, asthma, hypothyroidism, chronic LE edema, neuropathy presents with SBO. - Patient Problems (1) SBO (small bowel obstruction) Comment: -Pt now with BM, tolerating soft diet -Reduce frequency of morphine (2) Pseudogout Comment: -ortho following -status post depomedrol + lidocaine injection 05/21 -Ice, elevate, wrist brace -uric acid was 4.0 (3) DVT prophylaxis Comment: -Heparin subQ (4) Full code status Status and Disposition: Inpatient. Discharge when stable.
[2019-05-23] MEDS: Heparin VIAL(*) 5000 UNITS/ML VIAL (FIVE THOUSAND) SUBCUT SCH ×3 (05:39→21:15)
[2019-05-23] MEDS: Levothyroxine TAB* 100 MCG TAB PO SCH (05:39)
[2019-05-23] MEDS: fentaNYL Patch Check Q Shift 1 NOTE SCH ×2 (06:57→18:54)
[2019-05-23] MEDS: Morphine ORAL.SOLN 10 mg* 2 MG/ML UDC 5 ml PO PRN ×3 (07:16→18:27)
[2019-05-23] MEDS: Ondansetron ODT TAB* 4 MG PO PRN ×2 (07:17→18:57)
[2019-05-23] MEDS: Mupirocin 2% OINT* TUBE TOPICAL SCH ×2 (07:22→21:17)
[2019-05-23] MEDS: Fluticasone NASAL SPRAY 50MCG* 16 gm SPRAY BTL BOTH NARES SCH (07:23)
[2019-05-23] MEDS: Mometasone/Formoter 200/5 MDI INH SCH ×2 (07:37→19:41)
[2019-05-23] MEDS: Polyethylene Glycol 3350* 17 GM PACKET PO SCH (08:37)
[2019-05-23] MEDS: Colchicine* 0.6 MG TAB PO SCH (08:37)
[2019-05-23] MEDS: Pantoprazole TAB * 40 MG TAB PO SCH (08:37)
[2019-05-23] MEDS: Prochlorperazine TAB* 10 MG PO PRN (13:55)
[2019-05-24] MEDS: Morphine ORAL.SOLN 10 mg* 2 MG/ML UDC 5 ml PO PRN ×3 (00:46→12:14)
[2019-05-24] MEDS: Prochlorperazine TAB* 10 MG PO PRN ×2 (00:48→14:27)
[2019-05-24] MEDS: Heparin VIAL(*) 5000 UNITS/ML VIAL (FIVE THOUSAND) SUBCUT SCH ×2 (07:21→14:28)
[2019-05-24] MEDS: Levothyroxine TAB* 100 MCG TAB PO SCH (07:21)
[2019-05-24] MEDS: fentaNYL Patch Check Q Shift 1 NOTE SCH (07:30)
[2019-05-24] MEDS: Mometasone/Formoter 200/5 MDI INH SCH (07:57)
[2019-05-24] MEDS: Fluticasone NASAL SPRAY 50MCG* 16 gm SPRAY BTL BOTH NARES SCH (08:08)
[2019-05-24] MEDS: Mupirocin 2% OINT* TUBE TOPICAL SCH (08:08)
[2019-05-24] MEDS: Ondansetron ODT TAB* 4 MG PO PRN (08:09)
[2019-05-24] MEDS: Pantoprazole TAB * 40 MG TAB PO SCH (08:09)
[2019-05-24] MEDS: Polyethylene Glycol 3350* 17 GM PACKET PO SCH ×2 (08:10→14:28)
[2019-05-24] MEDS: fentaNYL PATCH 50 MCG/HR TRANSDERM SCH (11:42)
[2019-05-24 11:58] VITALS: BP 125/51
--- NOTE | 2019-05-25 21:58 | DS ---
CC: [facility] DISCHARGE SUMMARY: DATE OF ADMISSION: 05/10/19 DATE OF DISCHARGE: 05/24/19 DISCHARGE DIAGNOSES: 1. Small bowel obstruction. 2. Ventral hernia. 3. Pseudogout. 4. Chronic low back pain, on chronic narcotics. 5. Constipation related to narcotics. 6. History of asthma. 7. History of hypertension. 8. Hypothyroidism. 9. Chronic lower extremity edema. 10. History of anxiety and depression. 11. History of vertigo. 12. 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 13. Status post bilateral carpal tunnel surgeries. 14. Status post cataract extractions. 15. Anemia of acute illness. 16. Hypomagnesemia. 17. Hypophosphatemia. HISTORY: The patient is an 84-year-old woman admitted with small bowel obstruction. Please see the dictated admission note for details of the present illness, past medical history, family history, social and personal history, review of systems and physical examination. LABORATORY DATA: CBC on admission: WBC 7.6, H and H 11.9/37, MCV 84, PLT 481K. White count remained normal throughout her hospitalization until 05/20/19 when it went to 10.9 secondary to steroids. Hematocrit came down as well to 29 on 05/13/19. CBC prior to discharge was WBC 10.9, H and H 10.3/31, MCV 84, PLT 403 K. Platelet count was normal after initial admission. Chemistries on admission: Sodium 134, potassium 4.6, chloride 92, CO2 31, BUN and creatinine 47 /1.78, glucose 112. Rest of her comprehensive metabolic panel was essentially within normal limits except for globulin 4.6 on admission, which resolved. Lipase was normal at 39. CRP started at 125.46, went up to 205.66 on 05/12/19, was down to 59.33 on 05/19/19 and then went up to 131.38 on 05/20/19 (due to pseudogout). Phosphorus went down as low as 1.1 on 05/13/19, came up to 3.1 on 05/17/19. Magnesium went down as low as 1.6 on 05/13/19, was up to 1.9 prior to discharge on 05/18/19. Uric acid was normal at 4.0 on 05/19/19. Lactic acid was normal on admission. Urinalysis: Yellow, clear, specific gravity of 1.011, pH 6, dipsticks negative. Imaging: On abdominal and pelvic CT on 05/10/19 showed large infraumbilical hernia with dilated loops of bowel up to 4.4 cm diameter, decompressed loops of small bowel were noted left of midline inferior portion of the hernia within the pannus with mild infiltration of the mesenteric fat within the hernia. Chest x-ray 05/10/19 showed nasogastric tube. Abdominal x-ray 05/11/19 showed dilated loops of bowel. Chest x-rays 05/11/19 showed gastric tube, tip not well visualized. Chest x-ray 05/11/19 showing gastric tube overlying the midline mediastinum and terminating below the level of the diaphragm. Abdominal x-ray on 05/13/19 showed worsening of the distal small bowel obstruction. Abdominal x-ray on 05/14/19 showed partial small bowel obstruction unchanged. Abdominal x-ray on 05/16/19 showed persistent small bowel obstruction. CT 05/18/19 showed resolution of the small bowel obstruction, moderate to severe lumbar scoliosis, diffuse thickening of the wall of the urinary bladder due to incomplete distension. Wrist x-ray showed marked degenerative changes between the scaphoid, trapezium and scaphoid and trapezoid of the right wrist. CONSULTATIONS: Surgery 05/16/19, Dr. Das. This was for her left medial foot ulcer, which had been present for 3 months. Recommended applying antibiotic ointment and a bandage, changing daily (consultation done by nurse practitioner). Surgical consultation, Dr. Munoz, 05/10/19 for small bowel obstruction, recommended conservative treatment, NG tube drainage, avoiding surgery. There were multiple followup consultations by Surgery which recommended similar treatment. Orthopedic saw in consultation, Dr. Crowder, 07/27, recommended acute right wrist pain due to pseudogout, subsequent consultation, she was given injection of the right wrist by Dr. Crowder. HOSPITAL COURSE: The patient was initially admitted with small bowel obstruction. She was started on NG tube with suction. She had a surgical consultation. She had severe pain related to this. It was felt by her family specifically her son Bronson, that the reason this had happened was because she had missed a week or week and a half of taking MiraLAX because of the expense of buying it. She had prolonged small bowel obstruction, eventually she did clear with NG tube drainage and did avoid surgery. She was treated with IV fluids when she had the NG tube. She had low potassium, magnesium, phosphorus and these were repleted. She had elevated CRP, no clear signs of infection. This eventually improved. She received pain control with morphine. It was difficult to control her pain because she took significant amounts of oxycodone and OxyContin at home. A fentanyl patch was therefore added. This helped in controlling her pain. It was felt that if she did need surgery that she might need to be transferred to [facility] but this did not occur. Her MiraLAX was restarted. She had a PT referral for ambulation. Her IV fluids were eventually cut back. At this point, by 05/18/19, it was felt that her small bowel obstruction had largely resolved and her diet was advanced. By 05/19/19, she was able to eat. She developed severe right wrist pain, felt to be pseudogout, started on colchicine. This caused diarrhea. I asked Dr. Crowder to see her in orthopedic consultation. Initially she was concerned about doing an injection in the wrist because of concern that there might be infection there, but then she did perform a corticosteroid injection into the right wrist on . Her wrist pain improved. It was felt she could be discharged on . At the time of discharge, she is eating a regular diet. Activity as tolerated. She is going home in improved condition. She decided that she wanted to go home on fentanyl and morphine rather than oxycodone. DISCHARGE MEDICATIONS: Her medications are as follows: 1. Fentanyl patch 50 mcg daily. 2. Levothyroxine 100 mcg daily. 3. MiraLAX 17 g daily. 4. Morphine 15 mg every 4 hours as needed. 5. Singulair 10 mg daily. 6. Magnesium gluconate 500 mg 2 pills 4 times a day. 7. Levocetirizine 5 mg daily. 8. Triamterene/hydrochlorothiazide 37.5/25 mg 1 a day. 9. MultiVites 1 a day. 10. Docusate sodium 200 mg every day as needed. 11. Apple cider vinegar 1200 mg every day. 12. Glucosamine MSM chondroitin 1 each everyday. 13. Meclizine 25 mg every 6 hours as needed. 14. Estradiol 0.25 mg daily. 15. Mometasone/formoterol, Dulera 200/5 one puff twice daily. 16. Torsemide 20 mg every day. 17. Naproxen. 18. Aleve 2 daily as needed. 19. Senna 8.6 mg 4 times daily as needed. 20. Ondansetron 8 mg every 6 hours as needed for nausea. 21. Dicyclomine 10 mg 3 times a day daily as needed. 22. Albuterol 2 puffs every 4 hours as needed. She was told to stop oxycodone, OxyContin. She will be following up with me in 4 to 7 days. She will follow up with pain clinic as planned. [id number]/[facility] #: [id number] MTDD
== END 2019-05-24 14:50 | disposition home health service (06) | DRG 394 ==
LOC: ED 13:57 → MED 20:50
PROVIDERS: ADMIT Internal Medicine; ATTEND Internal Medicine Geriatric Medicine
PROC: 0D9670Z Drainage of Stomach with Drainage Device, Via Natural or Artificial Opening (ICD-10-PCS; principal; 2019-05-10)
DX: K43.6 Other and unspecified ventral hernia with obstruction, without gangrene (principal); K56.51 Intestinal adhesions [bands], with partial obstruction; E87.1 Hypo-osmolality and hyponatremia; N17.9 Acute kidney failure, unspecified; K52.1 Toxic gastroenteritis and colitis; F41.9 Anxiety disorder, unspecified; F32.9 Major depressive disorder, single episode, unspecified; M48.00 Spinal stenosis, site unspecified; M19.90 Unspecified osteoarthritis, unspecified site; G89.29 Other chronic pain; Z96.653 Presence of artificial knee joint, bilateral; M10.9 Gout, unspecified; J45.909 Unspecified asthma, uncomplicated; I10 Essential (primary) hypertension; E03.9 Hypothyroidism, unspecified; G62.9 Polyneuropathy, unspecified; R60.0 Localized edema; R42 Dizziness and giddiness; D64.9 Anemia, unspecified; E86.0 Dehydration; M11.231 Other chondrocalcinosis, right wrist; L97.529 Non-pressure chronic ulcer of other part of left foot with unspecified severity; E83.42 Hypomagnesemia; E83.39 Other disorders of phosphorus metabolism; T50.4X5A Adverse effect of drugs affecting uric acid metabolism, initial encounter; Y92.239 Unspecified place in hospital as the place of occurrence of the external cause; K59.03 Drug induced constipation; M41.86 Other forms of scoliosis, lumbar region; T40.605A Adverse effect of unspecified narcotics, initial encounter; Z88.0 Allergy status to penicillin; Z88.2 Allergy status to sulfonamides; Z88.8 Allergy status to other drugs, medicaments and biological substances; Z86.14 Personal history of Methicillin resistant Staphylococcus aureus infection; Z88.1 Allergy status to other antibiotic agents; Z91.041 Radiographic dye allergy status; Z72.89 Other problems related to lifestyle; Z90.710 Acquired absence of both cervix and uterus; Z98.42 Cataract extraction status, left eye; Z98.41 Cataract extraction status, right eye; Z86.711 Personal history of pulmonary embolism; Z86.718 Personal history of other venous thrombosis and embolism; Z80.0 Family history of malignant neoplasm of digestive organs; Z80.1 Family history of malignant neoplasm of trachea, bronchus and lung; Y92.9 Unspecified place or not applicable
CPT/HCPCS: 36415; 71045; 74018; 74176; 80048; 80053; 81003; 82330; 83605; 83690; 83735; 84100; 84550; 85025; 85027; 86140; 90686; 94640; 96372; 96374; 96375; 99284; A9270-GY; G8978-GP-CJ; G8978-GP-CK; G8979-GP-CI; J1040; J1644; J2270; J2405; J3475; J3480; J7512; Q0164

== ENCOUNTER 2020-07-17 12:53 | Inpatient (IN) ==
[2020-07-17] MEDS ORDERED: Magnesium Hydroxide LIQ 30 ML UDC PO PRN (15:28)
[2020-07-17] MEDS ORDERED: Vancomycin per Pharmacy 1 EA NOTE FOLLOW UP SCH (16:00)
[2020-07-17] MEDS: Morphine ORAL.SOLN 10 mg 2 mg/ml UDC 5 ml (10 mg) PO PRN ×2 (16:33→23:20)
[2020-07-17] MEDS: Vancomycin 750 MG in NS 0.9% 250 ML IVPB SCH (17:28)
[2020-07-17] MEDS: Ondansetron ODT 4 mg TAB 4 MG TAB PO PRN (18:04)
[2020-07-17] MEDS ORDERED: Potassium Chlor 20 meq TAB.ER PO SCH (21:00)
[2020-07-17] MEDS: Magnesium Chloride EC 64 mgTAB PO SCH (21:19)
[2020-07-17] MEDS: Potassium Chlor 20 meq TAB.ER PO SCH (21:20)
[2020-07-17] MEDS: Mometasone/Formoter 200/5 MDI INH SCH (21:21)
[2020-07-17] MEDS: Senna TAB 8.6 mg TAB PO PRN (21:22)
[2020-07-17] MEDS: fentaNYL Patch Check Q Shift NOTE FOLLOW UP SCH (23:20)
[2020-07-18] MEDS: Vancomycin 750 MG in NS 0.9% 250 ML IVPB SCH ×4 (01:15→17:27)
[2020-07-18] MEDS: Morphine ORAL.SOLN 10 mg 2 mg/ml UDC 5 ml (10 mg) PO PRN ×4 (05:03→23:04)
[2020-07-18 06:47] LABS: EGFR African American 104.6 (>60); EGFR Non-African American 86.4 (>60); Vancomycin Trough 20.1 mcg/mL
[2020-07-18] MEDS: fentaNYL Patch Check Q Shift NOTE FOLLOW UP SCH ×2 (07:07→23:05)
[2020-07-18] MEDS ORDERED: Magnesium Chloride EC 64 mgTAB PO SCH (09:00)
[2020-07-18] MEDS: Mometasone/Formoter 200/5 MDI INH SCH ×2 (09:47→19:48)
[2020-07-18] MEDS: Collagenase 250 units/gm OINT 1 tube TOPICAL SCH (10:17)
[2020-07-18] MEDS: Fluticasone NASAL SPRAY 50MCG 16 gm SPRAY BTL BOTH NARES SCH (10:17)
[2020-07-18] MEDS: Polyethylene Glycol 3350 17 GM PACKET PO SCH (10:18)
[2020-07-18] MEDS: Magnesium Chloride EC 64 mgTAB PO SCH ×2 (10:18→19:47)
[2020-07-18] MEDS: Potassium Chlor 20 meq TAB.ER PO SCH ×3 (10:18→19:47)
[2020-07-18] MEDS ORDERED: Vancomycin Trough Check NOTE FOLLOW UP ONE (15:30)
[2020-07-18] MEDS: Vancomycin 500 MG in NS 0.9% 250 ML IVPB SCH (17:23)
[2020-07-18] MEDS: Senna TAB 8.6 mg TAB PO PRN (19:47)
[2020-07-19] MEDS: Vancomycin 500 MG in NS 0.9% 250 ML IVPB SCH ×3 (02:03→18:01)
[2020-07-19] MEDS: Morphine ORAL.SOLN 10 mg 2 mg/ml UDC 5 ml (10 mg) PO PRN ×4 (05:59→23:39)
[2020-07-19] MEDS: fentaNYL Patch Check Q Shift NOTE FOLLOW UP SCH ×2 (06:53→23:40)
[2020-07-19 07:11] LABS: ABS Eosinophils 0.4 10^3/ul (0-0.6); ABS Lymphocytes 1.5 10^3/ul (1.0-4.8); ABS Monocytes 0.6 10^3/ul (0-0.8); ABS Neutrophils 4.5 10^3/ul (1.5-7.7); Eosinophil % 5.1 %; Hematocrit 22 % (35-47); Hemoglobin 7.1 g/dL (12.0-16.0); Lymphocyte % 21.4 %; Mean Corpuscular HGB Conc 33 g/dL (31-36); Mean Corpuscular Hemoglobin 28 pg (27-31); Mean Corpuscular Volume 86 fL (80-97); Mean Platelet Volume 7.2 fL (7.4-10.4); Nucleated Red Blood Cells % 0.1; Platelet Count 410 10^3/uL (150-450); Red Blood Count 2.51 10^6 /uL (3.70-4.87); Red Cell Distribution Width 14 % (10-15)
[2020-07-19 07:27] LABS: Albumin 2.8 g/dL (3.2-5.2); Albumin/Globulin Ratio 0.8 (1-3); BUN/Creatinine Ratio 16.7 (8-20); Calcium 8.4 mg/dL (8.6-10.3); EGFR African American 102.7 (>60); EGFR Non-African American 84.9 (>60); Globulin 3.7 g/dL (2-4); Potassium 3.9 mmol/L (3.5-5.0); Total Bilirubin 0.2 mg/dL (0.2-1.0); Total Protein 6.5 g/dL (6.4-8.9)
[2020-07-19] MEDS: Mometasone/Formoter 200/5 MDI INH SCH ×2 (08:57→20:58)
[2020-07-19] MEDS: Polyethylene Glycol 3350 17 GM PACKET PO SCH (09:01)
[2020-07-19] MEDS: Collagenase 250 units/gm OINT 1 tube TOPICAL SCH (09:02)
[2020-07-19] MEDS: Magnesium Chloride EC 64 mgTAB PO SCH ×2 (09:02→20:56)
[2020-07-19] MEDS: Potassium Chlor 20 meq TAB.ER PO SCH ×3 (09:02→20:56)
[2020-07-19] MEDS: Fluticasone NASAL SPRAY 50MCG 16 gm SPRAY BTL BOTH NARES SCH (09:03)
[2020-07-19] MEDS: Senna TAB 8.6 mg TAB PO PRN (10:35)
[2020-07-19] MEDS: Ondansetron ODT 4 mg TAB 4 MG TAB PO PRN ×2 (11:11→23:40)
[2020-07-19] MEDS: Senna TAB 8.6 mg TAB PO SCH (20:56)
[2020-07-19] MEDS: fentaNYL PATCH 75 MCG/HR 1 PATCH TRANSDERM SCH (21:23)
[2020-07-20] MEDS: Vancomycin 500 MG in NS 0.9% 250 ML IVPB SCH ×3 (02:12→18:11)
[2020-07-20] MEDS: fentaNYL Patch Check Q Shift NOTE FOLLOW UP SCH ×2 (07:13→20:10)
[2020-07-20] MEDS: Ondansetron ODT 4 mg TAB 4 MG TAB PO PRN ×2 (08:10→15:39)
[2020-07-20] MEDS: Fluticasone NASAL SPRAY 50MCG 16 gm SPRAY BTL BOTH NARES SCH (08:12)
[2020-07-20] MEDS: Collagenase 250 units/gm OINT 1 tube TOPICAL SCH (08:12)
[2020-07-20] MEDS: Magnesium Chloride EC 64 mgTAB PO SCH ×2 (08:13→20:21)
[2020-07-20] MEDS: Polyethylene Glycol 3350 17 GM PACKET PO SCH (08:14)
[2020-07-20] MEDS: Potassium Chlor 20 meq TAB.ER PO SCH ×3 (08:14→20:21)
[2020-07-20] MEDS: Senna TAB 8.6 mg TAB PO SCH ×2 (08:14→20:21)
[2020-07-20] MEDS: Mometasone/Formoter 200/5 MDI INH SCH ×2 (08:16→20:22)
[2020-07-20] MEDS: Morphine ORAL.SOLN 10 mg 2 mg/ml UDC 5 ml (10 mg) PO PRN ×3 (09:24→22:57)
[2020-07-20 10:51] LABS: ABS Basophils 0.1 10^3/ul (0-0.2); ABS Eosinophils 0.4 10^3/ul (0-0.6); ABS Lymphocytes 1.2 10^3/ul (1.0-4.8); ABS Monocytes 0.7 10^3/ul (0-0.8); ABS Neutrophils 5.8 10^3/ul (1.5-7.7); Eosinophil % 4.5 %; Hematocrit 24 % (35-47); Hemoglobin 7.7 g/dL (12.0-16.0); Lymphocyte % 14.5 %; Mean Corpuscular HGB Conc 32 g/dL (31-36); Mean Corpuscular Hemoglobin 27 pg (27-31); Mean Corpuscular Volume 85 fL (80-97); Mean Platelet Volume 7.2 fL (7.4-10.4); Platelet Count 498 10^3/uL (150-450); Red Blood Count 2.87 10^6 /uL (3.70-4.87); Red Cell Distribution Width 14 % (10-15)
[2020-07-20 15:35] LABS: Activated Partial Thrombo Time 33.4 seconds (26.0-38.0); INR 1.23 (0.82-1.09)
[2020-07-20 15:42] LABS: EGFR Non-African American 79.3 (>60)
[2020-07-20] MEDS: Heparin 5000 UNITS/ML 1 mL VIAL SUBCUT SCH (20:22)
[2020-07-21] MEDS: Vancomycin 500 MG in NS 0.9% 250 ML IVPB SCH ×3 (02:42→18:17)
[2020-07-21] MEDS: fentaNYL Patch Check Q Shift NOTE FOLLOW UP SCH ×2 (07:22→18:56)
[2020-07-21] MEDS: Ondansetron ODT 4 mg TAB 4 MG TAB PO PRN (07:46)
[2020-07-21] MEDS: Morphine ORAL.SOLN 10 mg 2 mg/ml UDC 5 ml (10 mg) PO PRN ×3 (09:08→23:19)
[2020-07-21] MEDS: Heparin 5000 UNITS/ML 1 mL VIAL SUBCUT SCH ×2 (09:10→20:34)
[2020-07-21] MEDS: Potassium Chlor 20 meq TAB.ER PO SCH ×3 (09:10→20:32)
[2020-07-21] MEDS: Senna TAB 8.6 mg TAB PO SCH ×2 (09:10→20:32)
[2020-07-21] MEDS: Polyethylene Glycol 3350 17 GM PACKET PO SCH (09:11)
[2020-07-21] MEDS: Collagenase 250 units/gm OINT 1 tube TOPICAL SCH (09:11)
[2020-07-21] MEDS: Mometasone/Formoter 200/5 MDI INH SCH ×2 (09:12→20:34)
[2020-07-21] MEDS: Magnesium Chloride EC 64 mgTAB PO SCH ×2 (09:12→20:35)
[2020-07-21] MEDS: Fluticasone NASAL SPRAY 50MCG 16 gm SPRAY BTL BOTH NARES SCH (09:12)
[2020-07-21] MEDS ORDERED: Vancomycin Trough Check NOTE FOLLOW UP ONE (09:30)
[2020-07-21 10:02] LABS: EGFR African American 92.9 (>60); EGFR Non-African American 76.8 (>60)
[2020-07-21 10:30] LABS: Vancomycin Trough 17.7 mcg/mL
[2020-07-22] MEDS: Vancomycin 500 MG in NS 0.9% 250 ML IVPB SCH ×3 (02:53→18:01)
[2020-07-22] MEDS: Ondansetron ODT 4 mg TAB 4 MG TAB PO PRN ×2 (04:56→16:05)
[2020-07-22 05:11] LABS: ABS Basophils 0.1 10^3/ul (0-0.2); ABS Eosinophils 0.3 10^3/ul (0-0.6); ABS Lymphocytes 1.7 10^3/ul (1.0-4.8); ABS Monocytes 0.7 10^3/ul (0-0.8); ABS Neutrophils 5.1 10^3/ul (1.5-7.7); Eosinophil % 4.1 %; Hematocrit 23 % (35-47); Hemoglobin 7.4 g/dL (12.0-16.0); Lymphocyte % 22.2 %; Mean Corpuscular HGB Conc 32 g/dL (31-36); Mean Corpuscular Hemoglobin 27 pg (27-31); Mean Corpuscular Volume 84 fL (80-97); Mean Platelet Volume 7.1 fL (7.4-10.4); Platelet Count 490 10^3/uL (150-450); Red Blood Count 2.77 10^6 /uL (3.70-4.87); Red Cell Distribution Width 14 % (10-15); White Blood Count 7.9 10^3/uL (3.5-10.8)
[2020-07-22] MEDS: fentaNYL Patch Check Q Shift NOTE FOLLOW UP SCH ×2 (06:53→22:55)
[2020-07-22] MEDS: Morphine ORAL.SOLN 10 mg 2 mg/ml UDC 5 ml (10 mg) PO PRN ×3 (07:39→22:54)
[2020-07-22] MEDS: Mometasone/Formoter 200/5 MDI INH SCH ×2 (08:44→21:40)
[2020-07-22] MEDS: Potassium Chlor 20 meq TAB.ER PO SCH ×3 (09:19→19:41)
[2020-07-22] MEDS: Fluticasone NASAL SPRAY 50MCG 16 gm SPRAY BTL BOTH NARES SCH (09:19)
[2020-07-22] MEDS: Magnesium Chloride EC 64 mgTAB PO SCH ×2 (09:19→19:42)
[2020-07-22] MEDS: Polyethylene Glycol 3350 17 GM PACKET PO SCH (09:19)
[2020-07-22] MEDS: Senna TAB 8.6 mg TAB PO SCH ×2 (09:19→19:41)
[2020-07-22] MEDS: Heparin 5000 UNITS/ML 1 mL VIAL SUBCUT SCH ×2 (09:20→21:40)
[2020-07-22] MEDS: Collagenase 250 units/gm OINT 1 tube TOPICAL SCH (09:27)
[2020-07-22] MEDS: fentaNYL PATCH 75 MCG/HR 1 PATCH TRANSDERM SCH (20:06)
[2020-07-23] MEDS: Vancomycin 500 MG in NS 0.9% 250 ML IVPB SCH ×3 (02:28→17:52)
[2020-07-23] MEDS: Morphine ORAL.SOLN 10 mg 2 mg/ml UDC 5 ml (10 mg) PO PRN ×3 (06:15→23:03)
[2020-07-23 06:44] LABS: ABS Basophils 0.1 10^3/ul (0-0.2); ABS Eosinophils 0.4 10^3/ul (0-0.6); ABS Monocytes 0.7 10^3/ul (0-0.8); ABS Neutrophils 5.4 10^3/ul (1.5-7.7); Eosinophil % 4.4 %; Hematocrit 24 % (35-47); Hemoglobin 7.6 g/dL (12.0-16.0); Mean Corpuscular HGB Conc 32 g/dL (31-36); Mean Corpuscular Hemoglobin 27 pg (27-31); Mean Corpuscular Volume 84 fL (80-97); Mean Platelet Volume 7.1 fL (7.4-10.4); Platelet Count 546 10^3/uL (150-450); Red Cell Distribution Width 14 % (10-15); White Blood Count 8.5 10^3/uL (3.5-10.8)
[2020-07-23] MEDS: fentaNYL Patch Check Q Shift NOTE FOLLOW UP SCH ×2 (07:08→23:04)
[2020-07-23] MEDS: Polyethylene Glycol 3350 17 GM PACKET PO SCH (08:18)
[2020-07-23] MEDS: Fluticasone NASAL SPRAY 50MCG 16 gm SPRAY BTL BOTH NARES SCH (08:18)
[2020-07-23] MEDS: Magnesium Chloride EC 64 mgTAB PO SCH ×2 (08:19→21:34)
[2020-07-23] MEDS: Senna TAB 8.6 mg TAB PO SCH ×2 (08:19→21:34)
[2020-07-23] MEDS: Potassium Chlor 20 meq TAB.ER PO SCH ×3 (08:20→21:34)
[2020-07-23] MEDS: Mometasone/Formoter 200/5 MDI INH SCH ×2 (08:35→21:36)
[2020-07-23] MEDS: Heparin 5000 UNITS/ML 1 mL VIAL SUBCUT SCH ×2 (09:13→21:37)
[2020-07-23] MEDS: Collagenase 250 units/gm OINT 1 tube TOPICAL SCH (09:13)
[2020-07-23] MEDS ORDERED: Vancomycin Trough Check NOTE FOLLOW UP ONE (09:30)
[2020-07-23 10:45] LABS: EGFR African American 97.6 (>60); EGFR Non-African American 80.7 (>60)
[2020-07-23] MEDS: Ondansetron ODT 4 mg TAB 4 MG TAB PO PRN (13:33)
[2020-07-23 18:06] LABS: ABS Basophils 0.1 10^3/ul (0-0.2); ABS Eosinophils 0.3 10^3/ul (0-0.6); ABS Lymphocytes 1.6 10^3/ul (1.0-4.8); ABS Monocytes 0.7 10^3/ul (0-0.8); ABS Neutrophils 7.6 10^3/ul (1.5-7.7); Hematocrit 22 % (35-47); Hemoglobin 7.2 g/dL (12.0-16.0); Lymphocyte % 15.9 %; Mean Corpuscular HGB Conc 33 g/dL (31-36); Mean Corpuscular Hemoglobin 27 pg (27-31); Mean Corpuscular Volume 84 fL (80-97); Mean Platelet Volume 7.3 fL (7.4-10.4); Nucleated Red Blood Cells % 0.1; Platelet Count 527 10^3/uL (150-450); Red Blood Count 2.62 10^6 /uL (3.70-4.87); Red Cell Distribution Width 14 % (10-15); White Blood Count 10.3 10^3/uL (3.5-10.8)
[2020-07-23] MEDS: Albuterol HFA INHALER 8 gm MDI INH PRN (21:36)
[2020-07-24] MEDS: Vancomycin 500 MG in NS 0.9% 250 ML IVPB SCH ×2 (02:59→10:55)
[2020-07-24] MEDS: Morphine ORAL.SOLN 10 mg 2 mg/ml UDC 5 ml (10 mg) PO PRN ×4 (06:42→23:25)
[2020-07-24] MEDS: fentaNYL Patch Check Q Shift NOTE FOLLOW UP SCH ×2 (06:43→23:25)
[2020-07-24] MEDS: Albuterol HFA INHALER 8 gm MDI INH PRN (07:17)
[2020-07-24] MEDS: Heparin 5000 UNITS/ML 1 mL VIAL SUBCUT SCH ×2 (10:11→20:10)
[2020-07-24] MEDS: Fluticasone NASAL SPRAY 50MCG 16 gm SPRAY BTL BOTH NARES SCH (10:11)
[2020-07-24] MEDS: Magnesium Chloride EC 64 mgTAB PO SCH ×2 (10:11→20:08)
[2020-07-24] MEDS: Senna TAB 8.6 mg TAB PO SCH ×2 (10:11→20:09)
[2020-07-24] MEDS: Mometasone/Formoter 200/5 MDI INH SCH ×2 (10:12→20:11)
[2020-07-24] MEDS: Collagenase 250 units/gm OINT 1 tube TOPICAL SCH (10:12)
[2020-07-24] MEDS: Potassium Chlor 20 meq TAB.ER PO SCH ×3 (10:14→20:09)
[2020-07-24] MEDS: Polyethylene Glycol 3350 17 GM PACKET PO SCH (10:31)
[2020-07-24] MEDS: Ondansetron ODT 4 mg TAB 4 MG TAB PO PRN (12:21)
[2020-07-24] MEDS: Vancomycin 750 MG in NS 0.9% 250 ML IVPB SCH (21:49)
[2020-07-25] MEDS: Morphine ORAL.SOLN 10 mg 2 mg/ml UDC 5 ml (10 mg) PO PRN ×3 (06:12→20:44)
[2020-07-25 06:49] LABS: ABS Basophils 0.1 10^3/ul (0-0.2); ABS Eosinophils 0.4 10^3/ul (0-0.6); ABS Lymphocytes 1.8 10^3/ul (1.0-4.8); ABS Monocytes 0.6 10^3/ul (0-0.8); ABS Neutrophils 7.2 10^3/ul (1.5-7.7); Eosinophil % 3.6 %; Hematocrit 24 % (35-47); Hemoglobin 7.8 g/dL (12.0-16.0); Lymphocyte % 18.2 %; Mean Corpuscular HGB Conc 32 g/dL (31-36); Mean Corpuscular Hemoglobin 27 pg (27-31); Mean Corpuscular Volume 84 fL (80-97); Mean Platelet Volume 7.1 fL (7.4-10.4); Platelet Count 529 10^3/uL (150-450); Red Blood Count 2.92 10^6 /uL (3.70-4.87); Red Cell Distribution Width 14 % (10-15); White Blood Count 10.1 10^3/uL (3.5-10.8)
[2020-07-25] MEDS: Senna TAB 8.6 mg TAB PO SCH ×2 (08:09→19:50)
[2020-07-25] MEDS: Magnesium Chloride EC 64 mgTAB PO SCH ×2 (08:10→20:00)
[2020-07-25] MEDS: Polyethylene Glycol 3350 17 GM PACKET PO SCH (08:10)
[2020-07-25] MEDS: Potassium Chlor 20 meq TAB.ER PO SCH ×3 (08:11→19:51)
[2020-07-25] MEDS: Mometasone/Formoter 200/5 MDI INH SCH ×2 (08:12→19:51)
[2020-07-25] MEDS: Fluticasone NASAL SPRAY 50MCG 16 gm SPRAY BTL BOTH NARES SCH (08:13)
[2020-07-25] MEDS: Heparin 5000 UNITS/ML 1 mL VIAL SUBCUT SCH ×2 (08:14→22:35)
[2020-07-25] MEDS: fentaNYL Patch Check Q Shift NOTE FOLLOW UP SCH ×3 (08:51→23:19)
[2020-07-25] MEDS: Vancomycin 750 MG in NS 0.9% 250 ML IVPB SCH ×2 (10:34→22:35)
[2020-07-25] MEDS: Collagenase 250 units/gm OINT 1 tube TOPICAL SCH (10:35)
[2020-07-25] MEDS: Ondansetron ODT 4 mg TAB 4 MG TAB PO PRN ×2 (13:09→18:43)
[2020-07-25] MEDS: fentaNYL PATCH 75 MCG/HR 1 PATCH TRANSDERM SCH (22:36)
[2020-07-26] MEDS: Morphine ORAL.SOLN 10 mg 2 mg/ml UDC 5 ml (10 mg) PO PRN ×3 (00:52→23:20)
[2020-07-26 06:06] LABS: ABS Basophils 0.1 10^3/ul (0-0.2); ABS Eosinophils 0.3 10^3/ul (0-0.6); ABS Lymphocytes 1.7 10^3/ul (1.0-4.8); ABS Monocytes 0.7 10^3/ul (0-0.8); ABS Neutrophils 5.8 10^3/ul (1.5-7.7); Eosinophil % 3.9 %; Hematocrit 22 % (35-47); Lymphocyte % 19.9 %; Mean Corpuscular HGB Conc 32 g/dL (31-36); Mean Corpuscular Hemoglobin 27 pg (27-31); Mean Corpuscular Volume 84 fL (80-97); Mean Platelet Volume 7.3 fL (7.4-10.4); Platelet Count 470 10^3/uL (150-450); Red Blood Count 2.61 10^6 /uL (3.70-4.87); Red Cell Distribution Width 14 % (10-15); White Blood Count 8.6 10^3/uL (3.5-10.8)
[2020-07-26 06:11] LABS: Potassium 4.1 mmol/L (3.5-5.0)
[2020-07-26 06:12] LABS: Albumin/Globulin Ratio 0.8 (1-3); BUN/Creatinine Ratio 19.7 (8-20); Calcium 8.8 mg/dL (8.6-10.3); EGFR African American 87.3 (>60); EGFR Non-African American 72.2 (>60); Globulin 3.7 g/dL (2-4); Total Bilirubin 0.3 mg/dL (0.2-1.0); Total Protein 6.7 g/dL (6.4-8.9)
[2020-07-26] MEDS: fentaNYL Patch Check Q Shift NOTE FOLLOW UP SCH ×2 (06:56→22:55)
[2020-07-26] MEDS: Fluticasone NASAL SPRAY 50MCG 16 gm SPRAY BTL BOTH NARES SCH (09:07)
[2020-07-26] MEDS: Polyethylene Glycol 3350 17 GM PACKET PO SCH (09:09)
[2020-07-26] MEDS: Heparin 5000 UNITS/ML 1 mL VIAL SUBCUT SCH ×2 (09:10→22:04)
[2020-07-26] MEDS: Senna TAB 8.6 mg TAB PO SCH ×2 (09:10→22:04)
[2020-07-26] MEDS: Magnesium Chloride EC 64 mgTAB PO SCH ×2 (09:10→22:03)
[2020-07-26] MEDS: Potassium Chlor 20 meq TAB.ER PO SCH ×3 (09:10→22:03)
[2020-07-26] MEDS: Collagenase 250 units/gm OINT 1 tube TOPICAL SCH (09:16)
[2020-07-26] MEDS: Mometasone/Formoter 200/5 MDI INH SCH ×2 (09:20→22:02)
[2020-07-26] MEDS ORDERED: Vancomycin Trough Check NOTE FOLLOW UP ONE ×2 (09:30)
[2020-07-26] MEDS: Vancomycin 750 MG in NS 0.9% 250 ML IVPB SCH ×2 (13:30→22:54)
[2020-07-26] MEDS: Ondansetron ODT 4 mg TAB 4 MG TAB PO PRN (17:07)
[2020-07-27 05:55] LABS: ABS Basophils 0.1 10^3/ul (0-0.2); ABS Eosinophils 0.4 10^3/ul (0-0.6); ABS Lymphocytes 1.9 10^3/ul (1.0-4.8); ABS Monocytes 0.7 10^3/ul (0-0.8); ABS Neutrophils 4.9 10^3/ul (1.5-7.7); Eosinophil % 5.4 %; Hematocrit 25 % (35-47); Hemoglobin 7.7 g/dL (12.0-16.0); Mean Corpuscular HGB Conc 31 g/dL (31-36); Mean Corpuscular Hemoglobin 26 pg (27-31); Mean Corpuscular Volume 84 fL (80-97); Mean Platelet Volume 6.9 fL (7.4-10.4); Platelet Count 512 10^3/uL (150-450); Red Blood Count 2.96 10^6 /uL (3.70-4.87); Red Cell Distribution Width 14 % (10-15)
[2020-07-27] MEDS: fentaNYL Patch Check Q Shift NOTE FOLLOW UP SCH ×2 (07:22→19:21)
[2020-07-27] MEDS: Morphine ORAL.SOLN 10 mg 2 mg/ml UDC 5 ml (10 mg) PO PRN ×3 (07:33→19:29)
[2020-07-27] MEDS: Magnesium Chloride EC 64 mgTAB PO SCH ×2 (08:21→21:50)
[2020-07-27] MEDS: Senna TAB 8.6 mg TAB PO SCH ×2 (08:21→21:49)
[2020-07-27] MEDS: Potassium Chlor 20 meq TAB.ER PO SCH ×3 (08:21→21:50)
[2020-07-27] MEDS: Polyethylene Glycol 3350 17 GM PACKET PO SCH (08:22)
[2020-07-27] MEDS: Mometasone/Formoter 200/5 MDI INH SCH ×2 (08:26→21:54)
[2020-07-27] MEDS: Fluticasone NASAL SPRAY 50MCG 16 gm SPRAY BTL BOTH NARES SCH (08:26)
[2020-07-27] MEDS: Heparin 5000 UNITS/ML 1 mL VIAL SUBCUT SCH ×2 (08:29→21:55)
[2020-07-27] MEDS: Vancomycin 750 MG in NS 0.9% 250 ML IVPB SCH ×2 (09:51→22:15)
[2020-07-27] MEDS: Collagenase 250 units/gm OINT 1 tube TOPICAL SCH (11:15)
[2020-07-28] MEDS: Ondansetron ODT 4 mg TAB 4 MG TAB PO PRN ×2 (06:26→13:33)
[2020-07-28] MEDS: Albuterol HFA INHALER 8 gm MDI INH PRN ×2 (06:52→22:52)
[2020-07-28] MEDS: Morphine ORAL.SOLN 10 mg 2 mg/ml UDC 5 ml (10 mg) PO PRN ×3 (07:31→22:21)
[2020-07-28] MEDS: fentaNYL Patch Check Q Shift NOTE FOLLOW UP SCH ×2 (07:32→19:35)
[2020-07-28] MEDS: Fluticasone NASAL SPRAY 50MCG 16 gm SPRAY BTL BOTH NARES SCH (08:55)
[2020-07-28] MEDS: Polyethylene Glycol 3350 17 GM PACKET PO SCH (08:55)
[2020-07-28] MEDS: Senna TAB 8.6 mg TAB PO SCH ×2 (08:56→22:24)
[2020-07-28] MEDS: Potassium Chlor 20 meq TAB.ER PO SCH ×3 (08:57→22:25)
[2020-07-28] MEDS: Magnesium Chloride EC 64 mgTAB PO SCH ×2 (08:57→22:24)
[2020-07-28] MEDS: Collagenase 250 units/gm OINT 1 tube TOPICAL SCH (09:00)
[2020-07-28] MEDS: Heparin 5000 UNITS/ML 1 mL VIAL SUBCUT SCH ×2 (09:01→22:26)
[2020-07-28] MEDS: Mometasone/Formoter 200/5 MDI INH SCH ×2 (09:02→22:27)
[2020-07-28] MEDS: Vancomycin 750 MG in NS 0.9% 250 ML IVPB SCH ×2 (10:17→22:58)
[2020-07-28] MEDS: Lidocaine PATCH 5% PATCH TRANSDERM SCH (13:28)
[2020-07-28] MEDS: fentaNYL PATCH 75 MCG/HR 1 PATCH TRANSDERM SCH (19:54)
[2020-07-28] MEDS: Lidocaine Patch REMOVE PATCH PATCH OFF SCH (22:32)
[2020-07-29] MEDS: Albuterol HFA INHALER 8 gm MDI INH PRN ×2 (06:17→11:45)
[2020-07-29] MEDS: fentaNYL Patch Check Q Shift NOTE FOLLOW UP SCH ×2 (06:53→23:33)
[2020-07-29] MEDS: Morphine ORAL.SOLN 10 mg 2 mg/ml UDC 5 ml (10 mg) PO PRN ×3 (08:39→16:14)
[2020-07-29] MEDS: Lidocaine PATCH 5% PATCH TRANSDERM SCH (08:41)
[2020-07-29] MEDS: Mometasone/Formoter 200/5 MDI INH SCH ×2 (08:44→22:18)
[2020-07-29] MEDS: Fluticasone NASAL SPRAY 50MCG 16 gm SPRAY BTL BOTH NARES SCH (08:44)
[2020-07-29] MEDS: Senna TAB 8.6 mg TAB PO SCH ×2 (10:15→22:16)
[2020-07-29] MEDS: Heparin 5000 UNITS/ML 1 mL VIAL SUBCUT SCH ×2 (10:15→22:16)
[2020-07-29] MEDS: Potassium Chlor 20 meq TAB.ER PO SCH ×3 (10:15→22:16)
[2020-07-29] MEDS: Polyethylene Glycol 3350 17 GM PACKET PO SCH (10:16)
[2020-07-29] MEDS: Magnesium Chloride EC 64 mgTAB PO SCH ×2 (10:17→22:16)
[2020-07-29] MEDS: Collagenase 250 units/gm OINT 1 tube TOPICAL SCH (10:17)
[2020-07-29] MEDS: Vancomycin 750 MG in NS 0.9% 250 ML IVPB SCH ×2 (11:33→22:18)
[2020-07-29] MEDS: Lidocaine Patch REMOVE PATCH PATCH OFF SCH (22:29)
[2020-07-29] MEDS: Ondansetron ODT 4 mg TAB 4 MG TAB PO PRN (22:38)
[2020-07-30] MEDS: Morphine ORAL.SOLN 10 mg 2 mg/ml UDC 5 ml (10 mg) PO PRN ×3 (01:57→13:54)
[2020-07-30] MEDS: Albuterol HFA INHALER 8 gm MDI INH PRN (02:14)
[2020-07-30 06:12] LABS: ABS Basophils 0.1 10^3/ul (0-0.2); ABS Eosinophils 0.3 10^3/ul (0-0.6); ABS Lymphocytes 1.5 10^3/ul (1.0-4.8); ABS Monocytes 0.6 10^3/ul (0-0.8); ABS Neutrophils 4.5 10^3/ul (1.5-7.7); Eosinophil % 4.7 %; Hematocrit 23 % (35-47); Hemoglobin 7.2 g/dL (12.0-16.0); Lymphocyte % 21.4 %; Mean Corpuscular HGB Conc 32 g/dL (31-36); Mean Corpuscular Hemoglobin 27 pg (27-31); Mean Corpuscular Volume 84 fL (80-97); Mean Platelet Volume 7.1 fL (7.4-10.4); Platelet Count 441 10^3/uL (150-450); Red Blood Count 2.69 10^6 /uL (3.70-4.87); Red Cell Distribution Width 14 % (10-15); White Blood Count 6.9 10^3/uL (3.5-10.8)
[2020-07-30 06:22] VITALS: BP 129/54
[2020-07-30] MEDS: fentaNYL Patch Check Q Shift NOTE FOLLOW UP SCH (06:55)
[2020-07-30] MEDS: Fluticasone NASAL SPRAY 50MCG 16 gm SPRAY BTL BOTH NARES SCH (08:35)
[2020-07-30] MEDS: Lidocaine PATCH 5% PATCH TRANSDERM SCH (08:36)
[2020-07-30] MEDS: Senna TAB 8.6 mg TAB PO SCH (08:44)
[2020-07-30] MEDS: Potassium Chlor 20 meq TAB.ER PO SCH ×2 (08:44→12:46)
[2020-07-30] MEDS: Magnesium Chloride EC 64 mgTAB PO SCH (08:45)
[2020-07-30] MEDS: Collagenase 250 units/gm OINT 1 tube TOPICAL SCH (08:46)
[2020-07-30] MEDS: Heparin 5000 UNITS/ML 1 mL VIAL SUBCUT SCH (08:46)
[2020-07-30] MEDS: Polyethylene Glycol 3350 17 GM PACKET PO SCH (08:48)
[2020-07-30] MEDS: Mometasone/Formoter 200/5 MDI INH SCH (08:49)
[2020-07-30 10:01] LABS: EGFR African American 81.1 (>60)
[2020-07-30 10:35] LABS: Vancomycin Trough 18.5 mcg/mL
[2020-07-30] MEDS: Vancomycin 750 MG in NS 0.9% 250 ML IVPB SCH (10:44)
== END 2020-07-30 14:25 | disposition home health service (06) | DRG 561 ==
LOC: PMRU 14:15
PROVIDERS: ADMIT Physical Medicine & Rehabilitation; ATTEND Physical Medicine & Rehabilitation

== ENCOUNTER 2020-11-20 14:31 | Inpatient (IN) ==
[2020-11-20] MEDS ORDERED: Lactulose 30 ml UDC PO PRN (15:13)
[2020-11-20] MEDS ORDERED: Magnesium Hydroxide LIQ 30 ML UDC PO PRN (15:13)
[2020-11-20] MEDS ORDERED: diPHENhydraMINE 25 mg TAB PO PRN (15:13)
[2020-11-20] MEDS ORDERED: diPHENhydraMINE IV 50 MG/ML 1 ml VIAL (BENADRYL) IV PRN (15:13)
[2020-11-20] MEDS ORDERED: Vancomycin per Pharmacy 1 EA NOTE FOLLOW UP SCH (16:00)
[2020-11-20] MEDS ORDERED: Vancomycin 1,250 MG in NS 0.9% 250 ml 250 ML IVPB ONE (16:00)
[2020-11-20 17:07] LABS: ABS Eosinophils 0.4 10^3/ul (0-0.6); ABS Lymphocytes 1.6 10^3/ul (1.0-4.8); ABS Monocytes 0.8 10^3/ul (0-0.8); ABS Neutrophils 3.6 10^3/ul (1.5-7.7); Hematocrit 26 % (35-47); Hemoglobin 7.9 g/dL (12.0-16.0); Mean Corpuscular HGB Conc 31 g/dL (31-36); Mean Corpuscular Hemoglobin 23 pg (27-31); Mean Corpuscular Volume 74 fL (80-97); Mean Platelet Volume 7.7 fL (7.4-10.4); Platelet Count 392 10^3/uL (150-450); Red Blood Count 3.48 10^6 /uL (3.70-4.87); Red Cell Distribution Width 19 % (10-15); White Blood Count 6.3 10^3/uL (3.5-10.8)
[2020-11-20 17:13] LABS: Activated Partial Thrombo Time 32.3 seconds (26.0-38.0); INR 1.07 (0.82-1.09)
[2020-11-20 17:22] LABS: BUN/Creatinine Ratio 30.7 (8-20); C Reactive Protein 65.31 mg/L (<8.01); EGFR African American 62.9 (>60); Potassium 3.9 mmol/L (3.5-5.0)
[2020-11-20] MEDS ORDERED: Fluticasone NASAL SPRAY 50MCG 16 gm SPRAY BTL BOTH NARES PRN (17:33)
[2020-11-20] MEDS ORDERED: Albuterol HFA INHALER 8 gm MDI INH PRN (17:33)
[2020-11-20 18:16] LABS: Microcytosis 1+
[2020-11-20 18:17] LABS: Polychromasia 1+
[2020-11-20] MEDS: Morphine ORAL.SOLN 10 mg 2 mg/ml UDC 5 ml (10 mg) PO SCH (18:58)
[2020-11-20] MEDS: fentaNYL PATCH 75 MCG/HR 1 PATCH TRANSDERM SCH (19:16)
[2020-11-20] MEDS: fentaNYL Patch Check Q Shift NOTE FOLLOW UP SCH (19:34)
[2020-11-20] MEDS: Mometasone/Formoter 200/5 MDI INH SCH (19:44)
[2020-11-20] MEDS ORDERED: Heparin 5000 UNITS/ML 1 mL VIAL SUBCUT SCH (21:00)
[2020-11-20] MEDS: Potassium Chloride LIQUID 20 MEQ/15 ML LIQUID PO SCH (22:01)
[2020-11-20] MEDS: Magnesium Hydroxide LIQ 30 ML UDC PO SCH (22:02)
[2020-11-20] MEDS: Senna TAB 8.6 mg TAB PO PRN (22:09)
[2020-11-21] MEDS: Morphine ORAL.SOLN 10 mg 2 mg/ml UDC 5 ml (10 mg) PO SCH ×5 (01:07→22:28)
[2020-11-21] MEDS ORDERED: Buffered Lidocaine 1% SYRIN 1 ml INTRADERM ONE (06:00)
[2020-11-21 06:52] LABS: Hematocrit 22 % (35-47); Hemoglobin 6.7 g/dL (12.0-16.0); Mean Platelet Volume 7.7 fL (7.4-10.4); Platelet Count 347 10^3/uL (150-450)
[2020-11-21 07:08] LABS: Anion Gap 6 mmol/L (2-11); Blood Urea Nitrogen 24 mg/dL (6-24); CO2 Carbon Dioxide 29 mmol/L (22-32); Calcium 8.4 mg/dL (8.6-10.3); Chloride 103 mmol/L (101-111); EGFR African American 72.8 (>60); EGFR Non-African American 60.1 (>60); Glucose 79 mg/dL (70-100); Potassium 3.9 mmol/L (3.5-5.0); Sodium 138 mmol/L (135-145)
[2020-11-21] MEDS: fentaNYL Patch Check Q Shift NOTE FOLLOW UP SCH ×2 (07:12→18:38)
[2020-11-21] MEDS: Lactated Ringers 1000 ml BAG 1,000 ML IV SCH (07:14)
[2020-11-21] MEDS: Mometasone/Formoter 200/5 MDI INH SCH ×2 (07:52→19:40)
[2020-11-21] MEDS: Polyethylene Glycol 3350 17 GM PACKET PO SCH (10:30)
[2020-11-21] MEDS: Magnesium Hydroxide LIQ 30 ML UDC PO SCH ×2 (10:31→22:39)
[2020-11-21] MEDS: Vitamin THERAPEUTIC TAB PO SCH (10:32)
[2020-11-21] MEDS: Potassium Chloride LIQUID 20 MEQ/15 ML LIQUID PO SCH ×4 (10:32→22:39)
[2020-11-21] MEDS: MAGNESIUM GLUCONATE 500 MG PO SCH ×4 (10:48→22:39)
[2020-11-21 14:19] LABS: Total Iron Binding Capacity 311 mcg/dL (250-450); Transferrin 222 mg/dL (203-362)
[2020-11-21 14:20] LABS: % Iron Saturation 6 % (15-55); Iron < 20 ug/dL (50-212); Unsaturated Iron Binding < 296 ug/dL
[2020-11-21 15:31] LABS: Ferritin 23.2 ng/mL (11-307)
[2020-11-21 15:33] LABS: Folate > 20.00 ng/mL (5.90-24.80)
[2020-11-21 15:35] LABS: Vitamin B12 865 pg/mL (180-914)
[2020-11-21] MEDS ORDERED: Propofol 10 MG/ML 20 ML BTL ONE (16:23)
[2020-11-21] MEDS ORDERED: Lidocaine 2% PF 5 ML VIAL ONE (16:23)
[2020-11-21] MEDS: Vancomycin 1,250 MG in NS 0.9% 250 ml 250 ML IVPB SCH (16:31)
[2020-11-21] MEDS ORDERED: fentaNYL 100 mcg/2 ml 50 MCG/ML VIAL ONE ×3 (16:36→19:18)
[2020-11-21 17:02] LABS: Hematocrit 30 % (35-47); Hemoglobin 9.2 g/dL (12.0-16.0)
[2020-11-21] MEDS ORDERED: Ropivacaine 5 MG/ML 20 ML VIAL 0.5% (100 MG) ONE (18:25)
[2020-11-21] MEDS ORDERED: Bacitracin INJECTION 50,000 UNITS ONE (18:26)
[2020-11-21] MEDS ORDERED: Phenylephrine 40 mcg/mL 10mL (400mcg) SYRINGE ONE (19:06)
[2020-11-21] MEDS ORDERED: Dexamethasone IV 4 MG/ML VIAL 1 ml VIAL ONE (19:46)
[2020-11-21] MEDS ORDERED: Ondansetron 4 mg VIAL 2 MG/ML 2 ml VIAL ONE (19:46)
[2020-11-21] MEDS ORDERED: Naloxone 0.4 mg VIAL 0.4 mg/ml 1 ml VIAL IV PRN ×2 (20:22→21:36)
[2020-11-21] MEDS ORDERED: diPHENhydraMINE IV 50 MG/ML 1 ml VIAL (BENADRYL) IV PRN (20:22)
[2020-11-21] MEDS ORDERED: HYDROmorphone 1 MG/1 ML SYRINGE ONE (20:23)
[2020-11-21] MEDS: HYDROmorphone 1 MG/1 ML SYRINGE IV PRN ×5 (20:25→20:55)
[2020-11-21] MEDS ORDERED: fentaNYL 100 mcg/2 ml 50 MCG/ML VIAL IV PRN (21:36)
[2020-11-21] MEDS: Morphine 2 MG/ML SYRINGE IV PRN (22:32)
[2020-11-21] MEDS: Ondansetron 4 mg VIAL 2 MG/ML 2 ml VIAL IV PRN (22:32)
[2020-11-21] MEDS: Senna TAB 8.6 mg TAB PO PRN (22:38)
[2020-11-22] MEDS: Morphine ORAL.SOLN 10 mg 2 mg/ml UDC 5 ml (10 mg) PO SCH ×4 (01:20→18:23)
[2020-11-22] MEDS: Morphine 2 MG/ML SYRINGE IV PRN (04:32)
[2020-11-22] MEDS: Lactated Ringers 1000 ml BAG 1,000 ML IV SCH (06:34)
[2020-11-22 06:45] LABS: ABS Lymphocytes 1.2 10^3/ul (1.0-4.8); ABS Monocytes 0.3 10^3/ul (0-0.8); ABS Neutrophils 3.5 10^3/ul (1.5-7.7); Eosinophil % 0.5 %; Hematocrit 30 % (35-47); Hemoglobin 9.3 g/dL (12.0-16.0); Lymphocyte % 23.5 %; Mean Corpuscular HGB Conc 31 g/dL (31-36); Mean Corpuscular Hemoglobin 24 pg (27-31); Mean Corpuscular Volume 78 fL (80-97); Mean Platelet Volume 7.7 fL (7.4-10.4); Platelet Count 383 10^3/uL (150-450); Red Blood Count 3.82 10^6 /uL (3.70-4.87); Red Cell Distribution Width 20 % (10-15)
[2020-11-22 07:02] LABS: BUN/Creatinine Ratio 20.8 (8-20); Calcium 8.9 mg/dL (8.6-10.3); EGFR Non-African American 71.1 (>60); Potassium 4.4 mmol/L (3.5-5.0)
[2020-11-22] MEDS: Mometasone/Formoter 200/5 MDI INH SCH ×2 (07:16→19:19)
[2020-11-22] MEDS: fentaNYL Patch Check Q Shift NOTE FOLLOW UP SCH ×2 (07:22→20:56)
[2020-11-22] MEDS: Vitamin THERAPEUTIC TAB PO SCH (10:35)
[2020-11-22] MEDS: Heparin 5000 UNITS/ML 1 mL VIAL SUBCUT SCH ×2 (10:35→21:13)
[2020-11-22] MEDS: Potassium Chloride LIQUID 20 MEQ/15 ML LIQUID PO SCH ×4 (10:37→21:15)
[2020-11-22] MEDS: Polyethylene Glycol 3350 17 GM PACKET PO SCH (10:37)
[2020-11-22] MEDS: Magnesium Hydroxide LIQ 30 ML UDC PO SCH ×2 (10:47→21:16)
[2020-11-22] MEDS: MAGNESIUM GLUCONATE 500 MG PO SCH ×4 (10:47→21:29)
[2020-11-22] MEDS: Vancomycin 1,250 MG in NS 0.9% 250 ml 250 ML IVPB SCH (15:56)
[2020-11-23] MEDS: Morphine ORAL.SOLN 10 mg 2 mg/ml UDC 5 ml (10 mg) PO SCH ×4 (00:23→17:58)
[2020-11-23 06:08] LABS: ABS Basophils 0.1 10^3/ul (0-0.2); ABS Eosinophils 0.4 10^3/ul (0-0.6); ABS Lymphocytes 2.4 10^3/ul (1.0-4.8); ABS Monocytes 0.6 10^3/ul (0-0.8); ABS Neutrophils 3.6 10^3/ul (1.5-7.7); Eosinophil % 5.7 %; Hematocrit 27 % (35-47); Hemoglobin 8.5 g/dL (12.0-16.0); Lymphocyte % 33.5 %; Mean Corpuscular HGB Conc 31 g/dL (31-36); Mean Corpuscular Hemoglobin 24 pg (27-31); Mean Corpuscular Volume 78 fL (80-97); Mean Platelet Volume 7.2 fL (7.4-10.4); Platelet Count 364 10^3/uL (150-450); Red Blood Count 3.51 10^6 /uL (3.70-4.87); Red Cell Distribution Width 21 % (10-15)
[2020-11-23 06:29] LABS: BUN/Creatinine Ratio 25.6 (8-20); Calcium 8.6 mg/dL (8.6-10.3); EGFR African American 75.7 (>60); EGFR Non-African American 62.6 (>60); Magnesium 1.9 mg/dL (1.9-2.7)
[2020-11-23] MEDS: fentaNYL Patch Check Q Shift NOTE FOLLOW UP SCH ×2 (06:54→19:16)
[2020-11-23] MEDS: Mometasone/Formoter 200/5 MDI INH SCH ×2 (07:38→22:14)
[2020-11-23] MEDS: Magnesium Hydroxide LIQ 30 ML UDC PO SCH ×2 (08:47→22:00)
[2020-11-23] MEDS: Potassium Chloride LIQUID 20 MEQ/15 ML LIQUID PO SCH ×4 (08:47→22:00)
[2020-11-23] MEDS: Polyethylene Glycol 3350 17 GM PACKET PO SCH (08:47)
[2020-11-23] MEDS: Vitamin THERAPEUTIC TAB PO SCH (08:48)
[2020-11-23] MEDS: Senna TAB 8.6 mg TAB PO PRN (08:48)
[2020-11-23] MEDS: Heparin 5000 UNITS/ML 1 mL VIAL SUBCUT SCH (08:50)
[2020-11-23] MEDS: MAGNESIUM GLUCONATE 500 MG PO SCH (08:50)
[2020-11-23] MEDS: MAGNESIUM GLYCINATE 400 MG PO SCH (12:46)
[2020-11-23] MEDS ORDERED: Vancomycin Trough Check NOTE FOLLOW UP ONE (14:30)
[2020-11-23] MEDS: Vancomycin 1,250 MG in NS 0.9% 250 ml 250 ML IVPB SCH (16:42)
[2020-11-23] MEDS: fentaNYL PATCH 75 MCG/HR 1 PATCH TRANSDERM SCH (17:58)
[2020-11-24] MEDS: Morphine ORAL.SOLN 10 mg 2 mg/ml UDC 5 ml (10 mg) PO SCH ×4 (00:39→17:39)
[2020-11-24 06:06] LABS: ABS Basophils 0.1 10^3/ul (0-0.2); ABS Eosinophils 0.5 10^3/ul (0-0.6); ABS Lymphocytes 1.6 10^3/ul (1.0-4.8); ABS Monocytes 0.6 10^3/ul (0-0.8); ABS Neutrophils 3.7 10^3/ul (1.5-7.7); Eosinophil % 7.4 %; Hematocrit 28 % (35-47); Hemoglobin 8.8 g/dL (12.0-16.0); Lymphocyte % 25.2 %; Mean Corpuscular HGB Conc 32 g/dL (31-36); Mean Corpuscular Hemoglobin 24 pg (27-31); Mean Corpuscular Volume 78 fL (80-97); Mean Platelet Volume 7.3 fL (7.4-10.4); Platelet Count 370 10^3/uL (150-450); Red Blood Count 3.59 10^6 /uL (3.70-4.87); Red Cell Distribution Width 20 % (10-15); White Blood Count 6.5 10^3/uL (3.5-10.8)
[2020-11-24 06:23] LABS: BUN/Creatinine Ratio 28.9 (8-20); Calcium 8.7 mg/dL (8.6-10.3); EGFR African American 78.9 (>60); EGFR Non-African American 65.2 (>60); Potassium 3.8 mmol/L (3.5-5.0)
[2020-11-24] MEDS: fentaNYL Patch Check Q Shift NOTE FOLLOW UP SCH ×2 (06:54→18:54)
[2020-11-24] MEDS: Magnesium Hydroxide LIQ 30 ML UDC PO SCH ×2 (07:46→20:09)
[2020-11-24] MEDS: Polyethylene Glycol 3350 17 GM PACKET PO SCH (07:47)
[2020-11-24] MEDS: Vancomycin 750 MG in NS 0.9% 250 ML IVPB SCH ×2 (07:54→20:12)
[2020-11-24] MEDS: Mometasone/Formoter 200/5 MDI INH SCH ×2 (08:18→19:56)
[2020-11-24] MEDS: Potassium Chloride LIQUID 20 MEQ/15 ML LIQUID PO SCH ×4 (09:32→20:11)
[2020-11-24] MEDS: Vitamin THERAPEUTIC TAB PO SCH (09:32)
[2020-11-24] MEDS: MAGNESIUM GLYCINATE 400 MG PO SCH (09:32)
[2020-11-24] MEDS: Ondansetron ODT 4 mg TAB 4 MG TAB PO PRN (13:39)
[2020-11-25] MEDS: Morphine ORAL.SOLN 10 mg 2 mg/ml UDC 5 ml (10 mg) PO SCH ×4 (00:03→18:09)
[2020-11-25 06:49] LABS: ABS Basophils 0.1 10^3/ul (0-0.2); ABS Eosinophils 0.5 10^3/ul (0-0.6); ABS Lymphocytes 1.7 10^3/ul (1.0-4.8); ABS Monocytes 0.7 10^3/ul (0-0.8); ABS Neutrophils 3.2 10^3/ul (1.5-7.7); Eosinophil % 8.4 %; Hematocrit 28 % (35-47); Hemoglobin 8.8 g/dL (12.0-16.0); Lymphocyte % 27.4 %; Mean Corpuscular HGB Conc 31 g/dL (31-36); Mean Corpuscular Hemoglobin 24 pg (27-31); Mean Corpuscular Volume 78 fL (80-97); Mean Platelet Volume 7.4 fL (7.4-10.4); Platelet Count 374 10^3/uL (150-450); Red Blood Count 3.64 10^6 /uL (3.70-4.87); Red Cell Distribution Width 21 % (10-15); White Blood Count 6.2 10^3/uL (3.5-10.8)
[2020-11-25 07:01] LABS: BUN/Creatinine Ratio 24.7 (8-20); Calcium 8.9 mg/dL (8.6-10.3); EGFR African American 69.2 (>60); EGFR Non-African American 57.2 (>60); Potassium 4.2 mmol/L (3.5-5.0)
[2020-11-25] MEDS: fentaNYL Patch Check Q Shift NOTE FOLLOW UP SCH ×2 (07:05→18:42)
[2020-11-25] MEDS: Ondansetron 4 mg VIAL 2 MG/ML 2 ml VIAL IV PRN (08:12)
[2020-11-25] MEDS: Vitamin THERAPEUTIC TAB PO SCH (08:17)
[2020-11-25] MEDS: Potassium Chloride LIQUID 20 MEQ/15 ML LIQUID PO SCH ×3 (08:17→20:08)
[2020-11-25] MEDS: Polyethylene Glycol 3350 17 GM PACKET PO SCH (08:17)
[2020-11-25] MEDS: MAGNESIUM GLYCINATE 400 MG PO SCH (08:19)
[2020-11-25] MEDS: Vancomycin 750 MG in NS 0.9% 250 ML IVPB SCH ×2 (08:19→20:13)
[2020-11-25] MEDS: Magnesium Hydroxide LIQ 30 ML UDC PO SCH ×2 (10:05→20:08)
[2020-11-25] MEDS: Mometasone/Formoter 200/5 MDI INH SCH ×2 (11:26→20:33)
[2020-11-25] MEDS: Senna TAB 8.6 mg TAB PO PRN (20:13)
[2020-11-26] MEDS: Morphine ORAL.SOLN 10 mg 2 mg/ml UDC 5 ml (10 mg) PO SCH ×4 (00:23→17:15)
[2020-11-26] MEDS: Morphine 2 MG/ML SYRINGE IV PRN (05:20)
[2020-11-26 05:26] LABS: ABS Eosinophils 0.6 10^3/ul (0-0.6); ABS Lymphocytes 1.8 10^3/ul (1.0-4.8); ABS Monocytes 0.6 10^3/ul (0-0.8); ABS Neutrophils 3.5 10^3/ul (1.5-7.7); Eosinophil % 8.6 %; Hematocrit 27 % (35-47); Hemoglobin 8.5 g/dL (12.0-16.0); Mean Corpuscular HGB Conc 32 g/dL (31-36); Mean Corpuscular Hemoglobin 25 pg (27-31); Mean Corpuscular Volume 77 fL (80-97); Mean Platelet Volume 7.2 fL (7.4-10.4); Platelet Count 337 10^3/uL (150-450); Red Blood Count 3.46 10^6 /uL (3.70-4.87); Red Cell Distribution Width 20 % (10-15); White Blood Count 6.6 10^3/uL (3.5-10.8)
[2020-11-26 05:42] LABS: BUN/Creatinine Ratio 29.2 (8-20); Calcium 8.8 mg/dL (8.6-10.3); EGFR African American 66.7 (>60); EGFR Non-African American 55.1 (>60); Potassium 3.5 mmol/L (3.5-5.0)
[2020-11-26] MEDS ORDERED: Buffered Lidocaine 1% SYRIN 1 ml INTRADERM ONE (06:00)
[2020-11-26] MEDS ORDERED: Lactated Ringers 1000 ml BAG 1,000 ML IV SCH (06:00)
[2020-11-26] MEDS ORDERED: fentaNYL 100 mcg/2 ml 50 MCG/ML VIAL ONE ×3 (06:56→09:28)
[2020-11-26] MEDS ORDERED: Lidocaine 2% PF 5 ML VIAL ONE (06:57)
[2020-11-26] MEDS ORDERED: Propofol 10 MG/ML 20 ML BTL ONE (07:02)
[2020-11-26] MEDS ORDERED: ROPIVACAINE 5 MG/ML 30 ML BTL (0.5%) ONE (07:12)
[2020-11-26] MEDS ORDERED: Vancomycin Trough Check NOTE FOLLOW UP ONE (07:30)
[2020-11-26] MEDS: fentaNYL Patch Check Q Shift NOTE FOLLOW UP SCH ×3 (07:47→18:47)
[2020-11-26] MEDS ORDERED: Ondansetron 4 mg VIAL 2 MG/ML 2 ml VIAL ONE (07:49)
[2020-11-26] MEDS ORDERED: Dexamethasone IV 4 MG/ML VIAL 1 ml VIAL ONE (07:49)
[2020-11-26] MEDS ORDERED: EPHEDrine (Pressors) 50 MG/ML VIAL ONE (08:04)
[2020-11-26] MEDS ORDERED: oxyCODONE/Acetamin 5/325 mg TAB PO PRN (08:32)
[2020-11-26] MEDS ORDERED: Ondansetron 4 mg VIAL 2 MG/ML 2 ml VIAL IV PRN (08:32)
[2020-11-26] MEDS ORDERED: DiMENhydriNATE IV 50 mg/ml 1 ml VIAL IV PUSH PRN (08:32)
[2020-11-26] MEDS ORDERED: Naloxone 0.4 mg VIAL 0.4 mg/ml 1 ml VIAL IV PRN (08:32)
[2020-11-26] MEDS: fentaNYL 100 mcg/2 ml 50 MCG/ML VIAL IV PRN ×4 (09:06→09:35)
[2020-11-26] MEDS ORDERED: oxyCODONE/Acetamin 5/325 mg TAB ONE (09:33)
[2020-11-26 11:42] LABS: Albumin 2.3 g/dL (3.4-4.7); Albumin/Globulin Ratio 0.61; Gamma Globulin 1.7 g/dL (0.6-1.6)
[2020-11-26] MEDS: Polyethylene Glycol 3350 17 GM PACKET PO SCH (11:48)
[2020-11-26] MEDS: Magnesium Hydroxide LIQ 30 ML UDC PO SCH ×2 (11:49→21:05)
[2020-11-26] MEDS: Vitamin THERAPEUTIC TAB PO SCH (11:49)
[2020-11-26] MEDS: Mometasone/Formoter 200/5 MDI INH SCH ×2 (11:49→20:09)
[2020-11-26] MEDS: Vancomycin 750 MG in NS 0.9% 250 ML IVPB SCH (11:50)
[2020-11-26] MEDS: Potassium Chloride LIQUID 20 MEQ/15 ML LIQUID PO SCH (11:50)
[2020-11-26] MEDS: MAGNESIUM GLYCINATE 400 MG PO SCH (11:51)
[2020-11-26] MEDS ORDERED: Vancomycin 750 MG in NS 0.9% 250 ml 250 ML IVPB SCH (14:00)
[2020-11-26] MEDS: fentaNYL PATCH 75 MCG/HR 1 PATCH TRANSDERM SCH (17:13)
[2020-11-26] MEDS: Potassium Chlor 20 meq TAB.ER PO SCH (21:04)
[2020-11-26] MEDS: Senna TAB 8.6 mg TAB PO PRN (21:09)
[2020-11-26] MEDS ORDERED: LACTATED RINGERS 1000 ML BAG IV SCH (23:00)
[2020-11-27] MEDS: Morphine ORAL.SOLN 10 mg 2 mg/ml UDC 5 ml (10 mg) PO SCH ×4 (00:40→18:15)
[2020-11-27 05:33] LABS: ABS Eosinophils 0.3 10^3/ul (0-0.6); ABS Monocytes 0.7 10^3/ul (0-0.8); ABS Neutrophils 4.5 10^3/ul (1.5-7.7); Eosinophil % 4.5 %; Hematocrit 26 % (35-47); Hemoglobin 8.3 g/dL (12.0-16.0); Lymphocyte % 26.8 %; Mean Corpuscular HGB Conc 32 g/dL (31-36); Mean Corpuscular Hemoglobin 24 pg (27-31); Mean Corpuscular Volume 77 fL (80-97); Mean Platelet Volume 7.5 fL (7.4-10.4); Platelet Count 366 10^3/uL (150-450); Red Cell Distribution Width 20 % (10-15); White Blood Count 7.6 10^3/uL (3.5-10.8)
[2020-11-27 05:42] LABS: Calcium 8.8 mg/dL (8.6-10.3); EGFR African American 70.9 (>60); EGFR Non-African American 58.6 (>60)
[2020-11-27] MEDS: fentaNYL Patch Check Q Shift NOTE FOLLOW UP SCH ×2 (07:14→19:15)
[2020-11-27] MEDS ORDERED: Enoxaparin 40 MG/0.4 ML SYR SUBCUT SCH (08:00)
[2020-11-27] MEDS: Magnesium Hydroxide LIQ 30 ML UDC PO SCH ×3 (08:25→19:56)
[2020-11-27] MEDS: MAGNESIUM GLYCINATE 400 MG PO SCH (08:26)
[2020-11-27] MEDS: Polyethylene Glycol 3350 17 GM PACKET PO SCH (08:26)
[2020-11-27] MEDS: Vitamin THERAPEUTIC TAB PO SCH (08:28)
[2020-11-27] MEDS: Potassium Chlor 20 meq TAB.ER PO SCH ×2 (08:28→19:55)
[2020-11-27] MEDS: Mometasone/Formoter 200/5 MDI INH SCH ×2 (08:29→19:25)
[2020-11-27] MEDS: Vancomycin 1,250 MG in NS 0.9% 250 ml 250 ML IVPB SCH (08:30)
[2020-11-27] MEDS: Senna TAB 8.6 mg TAB PO PRN ×2 (08:33→20:00)
[2020-11-27] MEDS: Enoxaparin 40 MG/0.4 ML SYR SUBCUT SCH (12:37)
[2020-11-27] MEDS ORDERED: Potassium Chlor 20 meq TAB.ER PO ONE (13:45)
[2020-11-28] MEDS: Morphine ORAL.SOLN 10 mg 2 mg/ml UDC 5 ml (10 mg) PO SCH ×3 (00:44→12:27)
[2020-11-28] MEDS: fentaNYL Patch Check Q Shift NOTE FOLLOW UP SCH (07:45)
[2020-11-28] MEDS: Vancomycin 1,250 MG in NS 0.9% 250 ml 250 ML IVPB SCH (07:48)
[2020-11-28] MEDS: Ondansetron ODT 4 mg TAB 4 MG TAB PO PRN (07:48)
[2020-11-28] MEDS: Mometasone/Formoter 200/5 MDI INH SCH (07:54)
[2020-11-28 08:20] LABS: ABS Basophils 0.1 10^3/ul (0-0.2); ABS Eosinophils 0.5 10^3/ul (0-0.6); ABS Lymphocytes 1.9 10^3/ul (1.0-4.8); ABS Monocytes 0.8 10^3/ul (0-0.8); ABS Neutrophils 4.4 10^3/ul (1.5-7.7); Eosinophil % 6.2 %; Hematocrit 29 % (35-47); Hemoglobin 9.4 g/dL (12.0-16.0); Lymphocyte % 25.1 %; Mean Corpuscular HGB Conc 32 g/dL (31-36); Mean Corpuscular Hemoglobin 25 pg (27-31); Mean Corpuscular Volume 78 fL (80-97); Mean Platelet Volume 7.8 fL (7.4-10.4); Platelet Count 365 10^3/uL (150-450); Red Blood Count 3.76 10^6 /uL (3.70-4.87); Red Cell Distribution Width 21 % (10-15); White Blood Count 7.6 10^3/uL (3.5-10.8)
[2020-11-28 08:24] LABS: Calcium 9.1 mg/dL (8.6-10.3); EGFR African American 72.8 (>60); EGFR Non-African American 60.1 (>60); Potassium 3.5 mmol/L (3.5-5.0)
[2020-11-28] MEDS: MAGNESIUM GLYCINATE 400 MG PO SCH (09:54)
[2020-11-28] MEDS: Potassium Chlor 20 meq TAB.ER PO SCH (09:57)
[2020-11-28] MEDS: Vitamin THERAPEUTIC TAB PO SCH (09:57)
[2020-11-28] MEDS: Polyethylene Glycol 3350 17 GM PACKET PO SCH (10:01)
[2020-11-28] MEDS: Magnesium Hydroxide LIQ 30 ML UDC PO SCH (10:02)
[2020-11-28 11:26] VITALS: BP 119/63
[2020-11-28] MEDS: Enoxaparin 40 MG/0.4 ML SYR SUBCUT SCH (11:42)
[2020-11-30] MEDS ORDERED: Vancomycin Trough Check NOTE FOLLOW UP ONE (07:30)
[2020-12-02 10:58] LABS: Flag, M-protein Isotype Positive (Negative)
== END 2020-11-28 15:25 | disposition home health service (06) | DRG 486 ==
LOC: ED 14:31 → SSU 17:11
PROVIDERS: ADMIT Orthopaedic Surgery Adult Reconstructive Orthopaedic Surgery; ATTEND Orthopaedic Surgery Adult Reconstructive Orthopaedic Surgery

== ENCOUNTER 2022-03-12 11:19 | Inpatient (IN) ==
[~2022-03-12 11:19] MED LIST changes: -Buffered Lidocaine 0.9% SYRIN* 5 ML/SYR SYRINGE INTRADERM ONE; +Buffered Lidocaine 1% SYRIN 1 ml INTRADERM ONE; +Dexamethasone IV 4 MG/ML VIAL 1 ml VIAL IV SLOW PU ONE; +Famotidine IV 10 MG/ML 2 ml VIAL (20 mg) IV ONE; -Famotidine IV* 10 MG/ML 2 ML (20 mg) IV ONE; -Gabapentin CAP(*) 300 MG PO ONE; +Lactated Ringers 1000 ml BAG 1,000 ML IV SCH; -Levalbuterol 0.63MG/3ML NEB* UNIT OF USE INH ONE; +Lidocaine 2% PF 5 ML VIAL ONE; +Propofol 10 MG/ML 20 ML BTL ONE; +Vancomycin 1,000 MG in NS 0.9% 250 ml 250 ML IVPB ONE; +fentaNYL 100 mcg/2 ml 50 MCG/ML VIAL ONE
[2022-03-12] MEDS ORDERED: Dexamethasone IV 4 MG/ML VIAL 1 ml VIAL ONE ×3 (11:37→14:24)
[2022-03-12] MEDS ORDERED: Famotidine IV 10 MG/ML 2 ml VIAL (20 mg) ONE ×3 (11:37→14:18)
[2022-03-12] MEDS ORDERED: Buffered Lidocaine 1% SYRIN 1 ml INTRADERM ONE (12:59)
[2022-03-12] MEDS ORDERED: Acetaminophen IV 1 GM/100ML 100 ML IV ONE (13:56)
[2022-03-12] MEDS ORDERED: HYDROmorphone 0.5 MG/0.5 ML SYRINGE ONE ×2 (14:27→14:28)
[2022-03-12] MEDS ORDERED: fentaNYL 100 mcg/2 ml 50 MCG/ML VIAL ONE ×5 (15:05→18:07)
[2022-03-12] MEDS ORDERED: Ketamine HCL 50 mg/ml 10 ml VIAL (500 MG) ONE (15:10)
[2022-03-12] MEDS ORDERED: Vancomycin 1,000 MG VIAL ONE (15:25)
[2022-03-12] MEDS ORDERED: Lactulose 30 ml UDC PO PRN (15:26)
[2022-03-12] MEDS ORDERED: Magnesium Hydroxide LIQ 30 ML UDC PO PRN (15:26)
[2022-03-12] MEDS ORDERED: Ondansetron 4 mg VIAL 2 MG/ML 2 ml VIAL IV PRN (15:26)
[2022-03-12] MEDS ORDERED: ROPIVACAINE 5 MG/ML 30 ML BTL (0.5%) ONE (15:35)
[2022-03-12] MEDS ORDERED: Morphine 2 MG/ML SYRINGE IV PRN (15:39)
[2022-03-12] MEDS ORDERED: Albuterol HFA INHALER 8 gm MDI INH PRN (15:59)
[2022-03-12] MEDS ORDERED: Lactated Ringers 1000 ml BAG 1,000 ML IV SCH (16:00)
[2022-03-12] MEDS ORDERED: Vancomycin per Pharmacy 1 EA NOTE FOLLOW UP SCH (16:00)
[2022-03-12] MEDS ORDERED: Prochlorperazine 5 mg/ml 2 ml VIAL (10 mg) IV PRN (17:24)
[2022-03-12] MEDS ORDERED: Naloxone 0.4 mg VIAL 0.4 mg/ml 1 ml VIAL IV PRN (17:24)
[2022-03-12] MEDS: HYDROmorphone 1 MG/1 ML SYRINGE IV PRN ×4 (17:27→17:47)
[2022-03-12] MEDS ORDERED: HYDROmorphone 1 MG/1 ML SYRINGE ONE ×3 (17:27→17:50)
[2022-03-12] MEDS: fentaNYL 100 mcg/2 ml 50 MCG/ML VIAL IV PRN ×5 (17:39→18:11)
[2022-03-12] MEDS ORDERED: HYDROmorphone 1 MG/1 ML SYRINGE IV SLOW PU PRN (17:52)
[2022-03-12] MEDS ORDERED: Naloxone Nasal Spray 4 MG/0.1 ML NASAL.SPR INTRANASAL PRN (19:03)
[2022-03-12] MEDS: Morphine ORAL.SOLN 10 mg 2 mg/ml UDC 5 ml (10 mg) PO SCH (21:22)
[2022-03-12] MEDS: Potassium Chlor 20 meq TAB.ER PO SCH (21:23)
[2022-03-12] MEDS: Magnesium Hydroxide LIQ 30 ML UDC PO SCH (21:24)
[2022-03-12] MEDS: MAGNESIUM GLYCINATE 400 MG PO SCH (23:04)
[2022-03-12] MEDS: Fluticasone NASAL SPRAY 50MCG 16 gm SPRAY BTL BOTH NARES SCH (23:06)
[2022-03-13] MEDS: fentaNYL PATCH 75 MCG/HR 1 PATCH TRANSDERM SCH (00:02)
[2022-03-13 06:25] LABS: Hematocrit 32 % (35-47); Hemoglobin 10.7 g/dL (12.0-16.0); Mean Platelet Volume 7.5 fL (7.4-10.4); Platelet Count 434 10^3/uL (150-450)
[2022-03-13] MEDS ORDERED: Lidocaine 2% JELLY 6 ML Topical TOPICAL ONE (06:30)
[2022-03-13] MEDS: HYDROmorphone 0.5 MG/0.5 ML SYRINGE IV SLOW PU PRN (06:36)
[2022-03-13 06:37] LABS: Calcium 9.3 mg/dL (8.6-10.3); Magnesium 2.4 mg/dL (1.9-2.7); Potassium 4.3 mmol/L (3.5-5.0); eGFR CKD-EPI 62.3 (>60)
[2022-03-13] MEDS: CMCS:FLUTICAS/UMECLI/VILANT 200-62.5-25 MDI (NF) INH SCH ×2 (07:24→08:34)
[2022-03-13] MEDS: fentaNYL Patch Check Q Shift NOTE FOLLOW UP SCH ×2 (08:43→23:31)
[2022-03-13] MEDS ORDERED: LevoCETirizine 5 mg TAB (NF) PO SCH (09:00)
[2022-03-13] MEDS ORDERED: ESTROPIPATE 0.75 MG PO SCH (09:00)
[2022-03-13] MEDS: MAGNESIUM GLYCINATE 400 MG PO SCH ×5 (10:08→20:54)
[2022-03-13] MEDS: Morphine ORAL.SOLN 10 mg 2 mg/ml UDC 5 ml (10 mg) PO SCH ×4 (10:10→20:55)
[2022-03-13] MEDS: Vitamin THERAPEUTIC TAB PO SCH (10:12)
[2022-03-13] MEDS: Potassium Chlor 20 meq TAB.ER PO SCH ×4 (10:12→20:51)
[2022-03-13] MEDS: Magnesium Hydroxide LIQ 30 ML UDC PO SCH ×2 (10:14→20:51)
[2022-03-13] MEDS: Fluticasone NASAL SPRAY 50MCG 16 gm SPRAY BTL BOTH NARES SCH ×2 (10:16→22:02)
[2022-03-13] MEDS: Vancomycin 750 MG in NS 0.9% 250 ML IVPB SCH (13:28)
[2022-03-13] MEDS: Ondansetron ODT 4 mg TAB 4 MG TAB PO PRN (18:03)
[2022-03-14] MEDS: HYDROmorphone 0.5 MG/0.5 ML SYRINGE IV SLOW PU PRN ×4 (01:24→11:51)
[2022-03-14 06:01] LABS: ABS Eosinophils 0.2 10^3/ul (0-0.6); ABS Lymphocytes 1.1 10^3/ul (1.0-4.8); ABS Monocytes 0.8 10^3/ul (0-0.8); ABS Neutrophils 7.2 10^3/ul (1.5-7.7); Eosinophil % 1.7 %; Hematocrit 30 % (35-47); Hemoglobin 10.3 g/dL (12.0-16.0); Lymphocyte % 11.8 %; Mean Corpuscular HGB Conc 34 g/dL (31-36); Mean Corpuscular Hemoglobin 31 pg (27-31); Mean Corpuscular Volume 92 fL (80-97); Mean Platelet Volume 7.1 fL (7.4-10.4); Platelet Count 383 10^3/uL (150-450); Red Blood Count 3.33 10^6 /uL (3.70-4.87); Red Cell Distribution Width 13 % (10-15); White Blood Count 9.3 10^3/uL (3.5-10.8)
[2022-03-14 06:48] LABS: Urine Appearance Clear; Urine Bilirubin Negative (Negative); Urine Blood Negative (Negative); Urine Color Yellow; Urine Glucose Negative (Negative); Urine Ketones Negative (Negative); Urine Protein Negative (Negative); Urine Specific Gravity 1.015 (1.005-1.030); Urine Urobilinogen 0.2 (Negative) (Negative)
[2022-03-14 06:49] LABS: Urine Nitrite Negative (Negative)
[2022-03-14] MEDS: CMCS:FLUTICAS/UMECLI/VILANT 200-62.5-25 MDI (NF) INH SCH (07:04)
[2022-03-14] MEDS: fentaNYL Patch Check Q Shift NOTE FOLLOW UP SCH ×2 (09:27→19:29)
[2022-03-14] MEDS: Magnesium Hydroxide LIQ 30 ML UDC PO SCH ×2 (09:36→21:51)
[2022-03-14] MEDS: Morphine ORAL.SOLN 10 mg 2 mg/ml UDC 5 ml (10 mg) PO SCH ×4 (09:37→21:47)
[2022-03-14] MEDS: Fluticasone NASAL SPRAY 50MCG 16 gm SPRAY BTL BOTH NARES SCH ×2 (09:38→21:31)
[2022-03-14] MEDS: Potassium Chlor 20 meq TAB.ER PO SCH ×4 (09:38→21:27)
[2022-03-14] MEDS: Vitamin THERAPEUTIC TAB PO SCH (09:39)
[2022-03-14] MEDS: MAGNESIUM GLYCINATE 400 MG PO SCH ×4 (09:49→21:49)
[2022-03-14] MEDS: Ondansetron ODT 4 mg TAB 4 MG TAB PO PRN (10:18)
[2022-03-14] MEDS: Vancomycin 750 MG in NS 0.9% 250 ML IVPB SCH (13:49)
[2022-03-15 05:38] LABS: Hematocrit 27 % (35-47); Mean Platelet Volume 7.2 fL (7.4-10.4); Platelet Count 349 10^3/uL (150-450)
[2022-03-15] MEDS: fentaNYL Patch Check Q Shift NOTE FOLLOW UP SCH ×2 (06:55→19:57)
[2022-03-15] MEDS: CMCS:FLUTICAS/UMECLI/VILANT 200-62.5-25 MDI (NF) INH SCH ×2 (06:56→07:05)
[2022-03-15] MEDS: Vitamin THERAPEUTIC TAB PO SCH (07:54)
[2022-03-15] MEDS: Potassium Chlor 20 meq TAB.ER PO SCH ×4 (07:56→20:11)
[2022-03-15] MEDS: Fluticasone NASAL SPRAY 50MCG 16 gm SPRAY BTL BOTH NARES SCH ×2 (07:58→20:13)
[2022-03-15] MEDS: Magnesium Hydroxide LIQ 30 ML UDC PO SCH ×2 (07:59→20:09)
[2022-03-15] MEDS: MAGNESIUM GLYCINATE 400 MG PO SCH ×4 (08:06→20:09)
[2022-03-15] MEDS: Morphine ORAL.SOLN 10 mg 2 mg/ml UDC 5 ml (10 mg) PO SCH ×4 (08:07→20:07)
[2022-03-15] MEDS ORDERED: Vancomycin Trough Check NOTE FOLLOW UP ONE (13:30)
[2022-03-15] MEDS: fentaNYL PATCH 75 MCG/HR 1 PATCH TRANSDERM SCH (15:04)
[2022-03-15] MEDS: Vancomycin 750 MG in NS 0.9% 250 ML IVPB SCH (15:09)
[2022-03-15] MEDS: Vancomycin 1,250 MG in NS 0.9% 250 ml 250 ML IVPB SCH (16:13)
[2022-03-15] MEDS: Ondansetron ODT 4 mg TAB 4 MG TAB PO PRN (16:19)
[2022-03-16 05:54] LABS: Hematocrit 27 % (35-47); Hemoglobin 9.1 g/dL (12.0-16.0); Mean Platelet Volume 7.2 fL (7.4-10.4); Platelet Count 354 10^3/uL (150-450)
[2022-03-16] MEDS: fentaNYL Patch Check Q Shift NOTE FOLLOW UP SCH ×2 (07:24→19:02)
[2022-03-16] MEDS: CMCS:FLUTICAS/UMECLI/VILANT 200-62.5-25 MDI (NF) INH SCH (07:58)
[2022-03-16] MEDS: Magnesium Hydroxide LIQ 30 ML UDC PO SCH (09:27)
[2022-03-16] MEDS: Fluticasone NASAL SPRAY 50MCG 16 gm SPRAY BTL BOTH NARES SCH ×2 (10:00→20:19)
[2022-03-16] MEDS: MAGNESIUM GLYCINATE 400 MG PO SCH ×4 (10:01→20:16)
[2022-03-16] MEDS: Potassium Chlor 20 meq TAB.ER PO SCH ×4 (10:02→20:18)
[2022-03-16] MEDS: Morphine ORAL.SOLN 10 mg 2 mg/ml UDC 5 ml (10 mg) PO SCH ×4 (10:02→20:14)
[2022-03-16] MEDS: Vitamin THERAPEUTIC TAB PO SCH (10:02)
[2022-03-16 11:34] LABS: INR 1.07 (0.89-1.11)
[2022-03-16 13:03] LABS: Rapid COVID-19 Molecular Undetected (Undetected)
[2022-03-16] MEDS ORDERED: fentaNYL 100 mcg/2 ml 50 MCG/ML VIAL ONE (13:57)
[2022-03-16] MEDS: Ondansetron ODT 4 mg TAB 4 MG TAB PO PRN ×2 (15:37→22:16)
[2022-03-16] MEDS: Vancomycin 1,250 MG in NS 0.9% 250 ml 250 ML IVPB SCH (18:50)
[2022-03-17 05:01] LABS: Hematocrit 28 % (35-47); Hemoglobin 8.8 g/dL (12.0-16.0); Mean Platelet Volume 7.2 fL (7.4-10.4); Platelet Count 465 10^3/uL (150-450)
[2022-03-17] MEDS: Ondansetron ODT 4 mg TAB 4 MG TAB PO PRN (05:09)
[2022-03-17 07:38] VITALS: BP 145/61
[2022-03-17] MEDS: CMCS:FLUTICAS/UMECLI/VILANT 200-62.5-25 MDI (NF) INH SCH (07:58)
[2022-03-17 08:11] LABS: ABS Basophils 0.1 10^3/ul (0-0.2); ABS Eosinophils 0.4 10^3/ul (0-0.6); ABS Lymphocytes 1.5 10^3/ul (1.0-4.8); ABS Monocytes 0.8 10^3/ul (0-0.8); Eosinophil % 3.6 %; Lymphocyte % 14.2 %; Mean Corpuscular HGB Conc 32 g/dL (31-36); Mean Corpuscular Hemoglobin 29 pg (27-31); Mean Corpuscular Volume 91 fL (80-97); Red Blood Count 3.04 10^6 /uL (3.70-4.87); Red Cell Distribution Width 14 % (10-15); White Blood Count 10.9 10^3/uL (3.5-10.8)
[2022-03-17] MEDS: Fluticasone NASAL SPRAY 50MCG 16 gm SPRAY BTL BOTH NARES SCH (08:33)
[2022-03-17] MEDS: Morphine ORAL.SOLN 10 mg 2 mg/ml UDC 5 ml (10 mg) PO SCH (08:34)
[2022-03-17] MEDS: Potassium Chlor 20 meq TAB.ER PO SCH (08:36)
[2022-03-17] MEDS: Vitamin THERAPEUTIC TAB PO SCH (08:37)
[2022-03-17] MEDS: MAGNESIUM GLYCINATE 400 MG PO SCH (11:00)
[2022-03-17] MEDS: fentaNYL Patch Check Q Shift NOTE FOLLOW UP SCH (11:01)
[2022-03-17] MEDS ORDERED: Vancomycin Trough Check NOTE FOLLOW UP ONE (15:30)
== END 2022-03-17 11:45 | disposition home or self-care (01) | DRG 464 ==
LOC: AA 11:19 → SSU 20:21
PROVIDERS: ADMIT Orthopaedic Surgery Adult Reconstructive Orthopaedic Surgery; ATTEND Internal Medicine

== ENCOUNTER 2022-08-28 13:21 | Inpatient (IN) ==
[2022-08-30] MEDS ORDERED: Vancomycin per Pharmacy 1 EA NOTE FOLLOW UP SCH (14:00)
[2022-08-30] MEDS: fentaNYL PATCH 75 MCG/HR 1 PATCH TRANSDERM SCH (15:42)
[2022-08-30] MEDS: fentaNYL Patch Check Q Shift NOTE FOLLOW UP SCH ×3 (15:44→23:39)
[2022-08-30] MEDS: Potassium Chlor 20 meq TAB.ER PO SCH ×2 (17:02→21:01)
[2022-08-30] MEDS ORDERED: Albuterol HFA INHALER 8 gm MDI INH PRN (17:43)
[2022-08-30] MEDS: MAGNESIUM GLYCINATE PO SCH ×2 (19:59→21:19)
[2022-08-30] MEDS: Fluticasone NASAL SPRAY 50MCG 16 gm SPRAY BTL BOTH NARES SCH (21:02)
[2022-08-30] MEDS: [UNRECOGNIZED DRUG - OTHER] TOPICAL SCH (21:19)
[2022-08-30] MEDS: Morphine ORAL.SOLN 10 mg 2 mg/ml UDC 5 ml (10 mg) PO PRN (22:52)
[2022-08-31] MEDS: Vancomycin 750 MG in NS 0.9% 250 ML IVPB SCH ×2 (01:22→14:29)
[2022-08-31] MEDS: fentaNYL Patch Check Q Shift NOTE FOLLOW UP SCH ×3 (07:17→23:30)
[2022-08-31] MEDS: Morphine ORAL.SOLN 10 mg 2 mg/ml UDC 5 ml (10 mg) PO PRN ×3 (09:22→23:58)
[2022-08-31] MEDS: Fluticasone NASAL SPRAY 50MCG 16 gm SPRAY BTL BOTH NARES SCH ×2 (09:24→20:11)
[2022-08-31] MEDS: ESTRADIOL 0.5 MG PO SCH (09:24)
[2022-08-31] MEDS: MAGNESIUM GLYCINATE PO SCH ×4 (09:25→20:08)
[2022-08-31] MEDS: Vitamin THERAPEUTIC TAB PO SCH (09:26)
[2022-08-31] MEDS: Potassium Chlor 20 meq TAB.ER PO SCH ×4 (09:26→20:09)
[2022-08-31] MEDS: FLUTICAS/UMECLI/VILANT 200-62.5-25 MDI (NF) INH SCH (09:32)
[2022-08-31] MEDS: [UNRECOGNIZED DRUG - OTHER] TOPICAL SCH ×2 (10:43→20:11)
[2022-08-31] MEDS ORDERED: Polyethylene Glycol 3350 17 GM PACKET PO ONE (12:27)
[2022-08-31] MEDS ORDERED: Vancomycin Trough Check NOTE FOLLOW UP ONE (12:30)
[2022-08-31 13:24] LABS: Creatinine, Serum 0.9 mg/dL (0.51-0.95); Vancomycin Trough 17.6 mcg/mL; eGFR CKD-EPI 61.5 (>60)
[2022-08-31 13:28] LABS: Hematocrit 27 % (35-47); Hemoglobin 8.7 g/dL (12.0-16.0); Mean Corpuscular HGB Conc 32 g/dL (31-36); Mean Corpuscular Hemoglobin 29 pg (27-31); Mean Corpuscular Volume 91 fL (80-97); Red Blood Count 3.02 10^6 /uL (3.70-4.87); Red Cell Distribution Width 15 % (10-15); White Blood Count 11.7 10^3/uL (3.5-10.8)
[2022-08-31 21:05] LABS: ABS Basophils 0.1 10^3/ul (0-0.2); ABS Eosinophils 0.4 10^3/ul (0-0.6); ABS Lymphocytes 1.4 10^3/ul (1.0-4.8); ABS Monocytes 0.8 10^3/ul (0-0.8); ABS Neutrophils 9.1 10^3/ul (1.5-7.7); Eosinophil % 3.2 %; Lymphocyte % 12.2 %; Nucleated Red Blood Cells % 0.2; Platelet Count 316 10^3/uL (150-450)
[2022-09-01] MEDS: Vancomycin 1,250 MG in NS 0.9% 250 ml 250 ML IVPB SCH (05:47)
[2022-09-01] MEDS: fentaNYL Patch Check Q Shift NOTE FOLLOW UP SCH ×4 (06:53→23:30)
[2022-09-01] MEDS: FLUTICAS/UMECLI/VILANT 200-62.5-25 MDI (NF) INH SCH (07:17)
[2022-09-01] MEDS: Morphine ORAL.SOLN 10 mg 2 mg/ml UDC 5 ml (10 mg) PO PRN ×2 (08:07→18:20)
[2022-09-01] MEDS: Polyethylene Glycol 3350 17 GM PACKET PO SCH (10:03)
[2022-09-01] MEDS: Potassium Chlor 20 meq TAB.ER PO SCH ×4 (10:04→20:45)
[2022-09-01] MEDS: Vitamin THERAPEUTIC TAB PO SCH (10:04)
[2022-09-01] MEDS: Fluticasone NASAL SPRAY 50MCG 16 gm SPRAY BTL BOTH NARES SCH ×2 (10:08→20:44)
[2022-09-01] MEDS: MAGNESIUM GLYCINATE PO SCH ×4 (10:09→20:44)
[2022-09-01] MEDS: [UNRECOGNIZED DRUG - OTHER] TOPICAL SCH ×2 (10:11→20:45)
[2022-09-01] MEDS: ESTRADIOL 0.5 MG PO SCH (10:11)
[2022-09-01] MEDS: Magnesium Hydroxide LIQ 30 ML UDC PO PRN (18:19)
[2022-09-01] MEDS: Ondansetron ODT 4 mg TAB 4 MG TAB PO PRN (19:48)
[2022-09-02] MEDS: Morphine ORAL.SOLN 10 mg 2 mg/ml UDC 5 ml (10 mg) PO PRN ×5 (00:05→23:43)
[2022-09-02] MEDS ORDERED: Vancomycin Trough Check NOTE FOLLOW UP ONE (05:30)
[2022-09-02 07:04] LABS: Creatinine, Serum 0.84 mg/dL (0.51-0.95); Vancomycin Trough 14.8 mcg/mL; eGFR CKD-EPI 66.8 (>60)
[2022-09-02] MEDS: fentaNYL Patch Check Q Shift NOTE FOLLOW UP SCH ×2 (07:11→23:19)
[2022-09-02] MEDS: Vancomycin 1,250 MG in NS 0.9% 250 ml 250 ML IVPB SCH (07:43)
[2022-09-02 08:08] LABS: Albumin 3.2 g/dL (3.2-5.2); Albumin/Globulin Ratio 1.1 (1-3); C Reactive Protein 99.16 mg/L (<8.01); Calcium 8.7 mg/dL (8.6-10.3); Globulin 2.8 g/dL (2-4); Potassium 4.1 mmol/L (3.5-5.0); Total Bilirubin 0.4 mg/dL (0.2-1.0)
[2022-09-02] MEDS: Polyethylene Glycol 3350 17 GM PACKET PO SCH (09:45)
[2022-09-02] MEDS: Fluticasone NASAL SPRAY 50MCG 16 gm SPRAY BTL BOTH NARES SCH ×2 (09:46→21:29)
[2022-09-02] MEDS: FLUTICAS/UMECLI/VILANT 200-62.5-25 MDI (NF) INH SCH (09:47)
[2022-09-02] MEDS: Vitamin THERAPEUTIC TAB PO SCH (09:47)
[2022-09-02] MEDS: Potassium Chlor 20 meq TAB.ER PO SCH ×4 (09:48→21:34)
[2022-09-02] MEDS: ESTRADIOL 0.5 MG PO SCH (09:54)
[2022-09-02] MEDS: MAGNESIUM GLYCINATE PO SCH ×4 (09:54→21:33)
[2022-09-02] MEDS: [UNRECOGNIZED DRUG - OTHER] TOPICAL SCH ×2 (09:54→21:34)
[2022-09-02] MEDS: Ondansetron ODT 4 mg TAB 4 MG TAB PO PRN (11:07)
[2022-09-02] MEDS: Senna TAB 8.6 mg TAB PO PRN (14:48)
[2022-09-02] MEDS: fentaNYL PATCH 75 MCG/HR 1 PATCH TRANSDERM SCH (15:26)
[2022-09-02] MEDS: Magnesium Hydroxide LIQ 30 ML UDC PO PRN (17:50)
[2022-09-03] MEDS: Vancomycin 1,250 MG in NS 0.9% 250 ml 250 ML IVPB SCH (05:52)
[2022-09-03] MEDS: fentaNYL Patch Check Q Shift NOTE FOLLOW UP SCH ×2 (07:03→19:58)
[2022-09-03] MEDS: Morphine ORAL.SOLN 10 mg 2 mg/ml UDC 5 ml (10 mg) PO PRN ×2 (07:15→19:53)
[2022-09-03] MEDS: [UNRECOGNIZED DRUG - OTHER] TOPICAL SCH ×2 (08:30→19:55)
[2022-09-03] MEDS: Polyethylene Glycol 3350 17 GM PACKET PO SCH (09:10)
[2022-09-03] MEDS: FLUTICAS/UMECLI/VILANT 200-62.5-25 MDI (NF) INH SCH (09:12)
[2022-09-03] MEDS: Fluticasone NASAL SPRAY 50MCG 16 gm SPRAY BTL BOTH NARES SCH ×2 (09:13→22:32)
[2022-09-03] MEDS: MAGNESIUM GLYCINATE PO SCH ×4 (09:13→19:54)
[2022-09-03] MEDS: ESTRADIOL 0.5 MG PO SCH (09:14)
[2022-09-03] MEDS: Potassium Chlor 20 meq TAB.ER PO SCH ×4 (09:15→19:54)
[2022-09-03] MEDS: Vitamin THERAPEUTIC TAB PO SCH (09:15)
[2022-09-03] MEDS: fentaNYL PATCH 75 MCG/HR 1 PATCH TRANSDERM SCH (15:04)
[2022-09-03] MEDS: Senna TAB 8.6 mg TAB PO PRN (20:02)
[2022-09-04] MEDS: Morphine ORAL.SOLN 10 mg 2 mg/ml UDC 5 ml (10 mg) PO PRN ×3 (01:17→23:19)
[2022-09-04] MEDS: Vancomycin 1,250 MG in NS 0.9% 250 ml 250 ML IVPB SCH (05:12)
[2022-09-04 06:58] LABS: Creatinine, Serum 0.81 mg/dL (0.51-0.95); eGFR CKD-EPI 69.8 (>60)
[2022-09-04] MEDS: fentaNYL Patch Check Q Shift NOTE FOLLOW UP SCH ×3 (07:05→23:07)
[2022-09-04] MEDS: [UNRECOGNIZED DRUG - OTHER] TOPICAL SCH ×2 (07:43→21:24)
[2022-09-04] MEDS: Polyethylene Glycol 3350 17 GM PACKET PO SCH (09:34)
[2022-09-04] MEDS: FLUTICAS/UMECLI/VILANT 200-62.5-25 MDI (NF) INH SCH (09:35)
[2022-09-04] MEDS: Fluticasone NASAL SPRAY 50MCG 16 gm SPRAY BTL BOTH NARES SCH ×2 (09:35→21:24)
[2022-09-04] MEDS: MAGNESIUM GLYCINATE PO SCH ×4 (09:36→21:24)
[2022-09-04] MEDS: ESTRADIOL 0.5 MG PO SCH (09:36)
[2022-09-04] MEDS: Vitamin THERAPEUTIC TAB PO SCH (09:37)
[2022-09-04] MEDS: Potassium Chlor 20 meq TAB.ER PO SCH ×4 (09:37→21:25)
[2022-09-04] MEDS: fentaNYL PATCH 75 MCG/HR 1 PATCH TRANSDERM SCH (15:17)
[2022-09-05] MEDS: Vancomycin 1,250 MG in NS 0.9% 250 ml 250 ML IVPB SCH (04:35)
[2022-09-05] MEDS: fentaNYL Patch Check Q Shift NOTE FOLLOW UP SCH ×3 (07:02→23:55)
[2022-09-05] MEDS: Morphine ORAL.SOLN 10 mg 2 mg/ml UDC 5 ml (10 mg) PO PRN ×2 (09:17→22:44)
[2022-09-05] MEDS: MAGNESIUM GLYCINATE PO SCH ×4 (09:18→21:13)
[2022-09-05] MEDS: ESTRADIOL 0.5 MG PO SCH (09:18)
[2022-09-05] MEDS: Polyethylene Glycol 3350 17 GM PACKET PO SCH (09:19)
[2022-09-05] MEDS: Potassium Chlor 20 meq TAB.ER PO SCH ×4 (09:21→21:13)
[2022-09-05] MEDS: Vitamin THERAPEUTIC TAB PO SCH (09:21)
[2022-09-05] MEDS: FLUTICAS/UMECLI/VILANT 200-62.5-25 MDI (NF) INH SCH (09:24)
[2022-09-05] MEDS: Fluticasone NASAL SPRAY 50MCG 16 gm SPRAY BTL BOTH NARES SCH ×2 (09:24→21:14)
[2022-09-05] MEDS: [UNRECOGNIZED DRUG - OTHER] TOPICAL SCH ×2 (09:25→21:14)
[2022-09-05] MEDS: Ondansetron ODT 4 mg TAB 4 MG TAB PO PRN (10:05)
[2022-09-05] MEDS: fentaNYL PATCH 75 MCG/HR 1 PATCH TRANSDERM SCH (15:02)
[2022-09-05] MEDS: Senna TAB 8.6 mg TAB PO PRN (21:12)
[2022-09-06] MEDS: Vancomycin 1,250 MG in NS 0.9% 250 ml 250 ML IVPB SCH (05:19)
[2022-09-06] MEDS: fentaNYL Patch Check Q Shift NOTE FOLLOW UP SCH ×3 (07:31→22:27)
[2022-09-06] MEDS: Morphine ORAL.SOLN 10 mg 2 mg/ml UDC 5 ml (10 mg) PO PRN ×2 (09:12→23:34)
[2022-09-06] MEDS: Polyethylene Glycol 3350 17 GM PACKET PO SCH (09:13)
[2022-09-06] MEDS: Vitamin THERAPEUTIC TAB PO SCH (09:15)
[2022-09-06] MEDS: Potassium Chlor 20 meq TAB.ER PO SCH ×4 (09:15→22:24)
[2022-09-06] MEDS: MAGNESIUM GLYCINATE PO SCH ×4 (09:15→22:26)
[2022-09-06] MEDS: ESTRADIOL 0.5 MG PO SCH (09:17)
[2022-09-06] MEDS: [UNRECOGNIZED DRUG - OTHER] TOPICAL SCH ×2 (09:19→23:35)
[2022-09-06] MEDS: Fluticasone NASAL SPRAY 50MCG 16 gm SPRAY BTL BOTH NARES SCH ×2 (09:19→22:30)
[2022-09-06] MEDS: FLUTICAS/UMECLI/VILANT 200-62.5-25 MDI (NF) INH SCH (09:19)
[2022-09-06] MEDS: Senna TAB 8.6 mg TAB PO SCH ×2 (11:30→22:24)
[2022-09-07] MEDS: fentaNYL Patch Check Q Shift NOTE FOLLOW UP SCH ×4 (07:10→23:15)
[2022-09-07] MEDS: FLUTICAS/UMECLI/VILANT 200-62.5-25 MDI (NF) INH SCH (07:36)
[2022-09-07] MEDS: Morphine ORAL.SOLN 10 mg 2 mg/ml UDC 5 ml (10 mg) PO PRN ×2 (08:13→22:30)
[2022-09-07] MEDS: Polyethylene Glycol 3350 17 GM PACKET PO SCH (08:14)
[2022-09-07] MEDS: Vitamin THERAPEUTIC TAB PO SCH (08:17)
[2022-09-07] MEDS: Senna TAB 8.6 mg TAB PO SCH ×2 (08:17→19:48)
[2022-09-07] MEDS: Potassium Chlor 20 meq TAB.ER PO SCH ×4 (08:18→19:48)
[2022-09-07] MEDS: ESTRADIOL 0.5 MG PO SCH (08:20)
[2022-09-07] MEDS: Fluticasone NASAL SPRAY 50MCG 16 gm SPRAY BTL BOTH NARES SCH ×2 (08:24→19:55)
[2022-09-07] MEDS: MAGNESIUM GLYCINATE PO SCH ×4 (08:24→19:52)
[2022-09-07] MEDS: Vancomycin 1,250 MG in NS 0.9% 250 ml 250 ML IVPB SCH (09:00)
[2022-09-07] MEDS: [UNRECOGNIZED DRUG - OTHER] TOPICAL SCH ×2 (10:34→19:48)
[2022-09-08] MEDS: Vancomycin 1,250 MG in NS 0.9% 250 ml 250 ML IVPB SCH (05:00)
[2022-09-08] MEDS: fentaNYL Patch Check Q Shift NOTE FOLLOW UP SCH ×2 (07:19→23:20)
[2022-09-08] MEDS: FLUTICAS/UMECLI/VILANT 200-62.5-25 MDI (NF) INH SCH (07:56)
[2022-09-08] MEDS: [UNRECOGNIZED DRUG - OTHER] TOPICAL SCH ×2 (08:04→20:19)
[2022-09-08] MEDS: Morphine ORAL.SOLN 10 mg 2 mg/ml UDC 5 ml (10 mg) PO PRN ×2 (08:05→22:50)
[2022-09-08] MEDS: Senna TAB 8.6 mg TAB PO SCH ×2 (09:19→20:18)
[2022-09-08] MEDS: Polyethylene Glycol 3350 17 GM PACKET PO SCH (09:19)
[2022-09-08] MEDS: Potassium Chlor 20 meq TAB.ER PO SCH ×4 (09:20→20:22)
[2022-09-08] MEDS: ESTRADIOL 0.5 MG PO SCH (09:21)
[2022-09-08] MEDS: Vitamin THERAPEUTIC TAB PO SCH (09:22)
[2022-09-08] MEDS: Fluticasone NASAL SPRAY 50MCG 16 gm SPRAY BTL BOTH NARES SCH ×2 (09:22→20:19)
[2022-09-08] MEDS: MAGNESIUM GLYCINATE PO SCH ×4 (09:26→20:18)
[2022-09-08] MEDS: fentaNYL PATCH 75 MCG/HR 1 PATCH TRANSDERM SCH (14:58)
[2022-09-09] MEDS: Vancomycin 1,250 MG in NS 0.9% 250 ml 250 ML IVPB SCH (05:20)
[2022-09-09] MEDS ORDERED: Vancomycin Trough Check NOTE FOLLOW UP ONE (06:00)
[2022-09-09 06:49] LABS: Creatinine, Serum 0.88 mg/dL (0.51-0.95); eGFR CKD-EPI 63.2 (>60)
[2022-09-09] MEDS: fentaNYL Patch Check Q Shift NOTE FOLLOW UP SCH ×3 (06:52→23:24)
[2022-09-09 06:53] LABS: Vancomycin Trough 40.6 mcg/mL
[2022-09-09] MEDS: Polyethylene Glycol 3350 17 GM PACKET PO SCH (08:00)
[2022-09-09] MEDS: FLUTICAS/UMECLI/VILANT 200-62.5-25 MDI (NF) INH SCH (08:01)
[2022-09-09] MEDS: Fluticasone NASAL SPRAY 50MCG 16 gm SPRAY BTL BOTH NARES SCH ×2 (08:01→21:07)
[2022-09-09] MEDS: MAGNESIUM GLYCINATE PO SCH ×4 (08:02→21:07)
[2022-09-09] MEDS: ESTRADIOL 0.5 MG PO SCH (08:02)
[2022-09-09] MEDS: Senna TAB 8.6 mg TAB PO SCH ×2 (08:03→21:11)
[2022-09-09] MEDS: Potassium Chlor 20 meq TAB.ER PO SCH ×4 (08:03→21:08)
[2022-09-09] MEDS: Morphine ORAL.SOLN 10 mg 2 mg/ml UDC 5 ml (10 mg) PO PRN ×2 (08:05→23:26)
[2022-09-09] MEDS: Vitamin THERAPEUTIC TAB PO SCH (08:05)
[2022-09-09] MEDS: [UNRECOGNIZED DRUG - OTHER] TOPICAL SCH ×2 (08:09→23:26)
[2022-09-09] MEDS: Ondansetron ODT 4 mg TAB 4 MG TAB PO PRN (18:01)
[2022-09-10] MEDS ORDERED: Vancomycin Trough Check NOTE FOLLOW UP ONE (05:30)
[2022-09-10] MEDS: fentaNYL Patch Check Q Shift NOTE FOLLOW UP SCH ×3 (07:25→23:21)
[2022-09-10] MEDS: Vancomycin 1,250 MG in NS 0.9% 250 ml 250 ML IVPB SCH (08:05)
[2022-09-10] MEDS: Morphine ORAL.SOLN 10 mg 2 mg/ml UDC 5 ml (10 mg) PO PRN ×3 (08:25→23:22)
[2022-09-10] MEDS: Potassium Chlor 20 meq TAB.ER PO SCH ×4 (08:27→21:50)
[2022-09-10] MEDS: Senna TAB 8.6 mg TAB PO SCH ×2 (08:27→21:50)
[2022-09-10] MEDS: Polyethylene Glycol 3350 17 GM PACKET PO SCH (08:28)
[2022-09-10] MEDS: Vitamin THERAPEUTIC TAB PO SCH (08:28)
[2022-09-10] MEDS: MAGNESIUM GLYCINATE PO SCH ×4 (08:35→21:49)
[2022-09-10] MEDS: Fluticasone NASAL SPRAY 50MCG 16 gm SPRAY BTL BOTH NARES SCH ×2 (08:36→21:49)
[2022-09-10] MEDS: [UNRECOGNIZED DRUG - OTHER] TOPICAL SCH ×2 (08:38→22:20)
[2022-09-10] MEDS: ESTRADIOL 0.5 MG PO SCH (08:39)
[2022-09-10] MEDS: FLUTICAS/UMECLI/VILANT 200-62.5-25 MDI (NF) INH SCH (08:45)
[2022-09-11 04:29] VITALS: BP 147/76
[2022-09-11] MEDS: fentaNYL Patch Check Q Shift NOTE FOLLOW UP SCH (07:15)
[2022-09-11] MEDS: FLUTICAS/UMECLI/VILANT 200-62.5-25 MDI (NF) INH SCH (07:38)
[2022-09-11] MEDS ORDERED: Vancomycin 1000 MG in NS 0.9% 250 ML IVPB SCH (08:00)
[2022-09-11] MEDS: Polyethylene Glycol 3350 17 GM PACKET PO SCH (08:33)
[2022-09-11] MEDS: Fluticasone NASAL SPRAY 50MCG 16 gm SPRAY BTL BOTH NARES SCH (08:34)
[2022-09-11] MEDS: [UNRECOGNIZED DRUG - OTHER] TOPICAL SCH (08:34)
[2022-09-11] MEDS: MAGNESIUM GLYCINATE PO SCH ×2 (08:34→12:44)
[2022-09-11] MEDS: ESTRADIOL 0.5 MG PO SCH (08:35)
[2022-09-11] MEDS: Morphine ORAL.SOLN 10 mg 2 mg/ml UDC 5 ml (10 mg) PO PRN (08:36)
[2022-09-11] MEDS: Senna TAB 8.6 mg TAB PO SCH (08:37)
[2022-09-11] MEDS: Potassium Chlor 20 meq TAB.ER PO SCH ×2 (08:38→12:45)
[2022-09-11] MEDS: Vitamin THERAPEUTIC TAB PO SCH (08:38)
[2022-09-11] MEDS: Ondansetron ODT 4 mg TAB 4 MG TAB PO PRN (09:15)
[2022-09-11] MEDS: fentaNYL PATCH 75 MCG/HR 1 PATCH TRANSDERM SCH (12:54)
[2022-09-14] MEDS ORDERED: Vancomycin Trough Check NOTE FOLLOW UP ONE (07:30)
== END 2022-09-11 13:00 | disposition home or self-care (01) | DRG 560 ==
LOC: PMRU 08-30 13:59 → UNDODISIN 08-30 14:00
PROVIDERS: ADMIT Physical Medicine & Rehabilitation; ATTEND Physical Medicine & Rehabilitation

== ENCOUNTER 2022-09-30 13:55 | Inpatient (IN) ==
[2022-09-30] MEDS ORDERED: Morphine 4 MG/ML VIAL (1 ml) IV ONE (14:41)
[2022-09-30 14:59] LABS: ABS Basophils 0.1 10^3/ul (0-0.2); ABS Lymphocytes 0.8 10^3/ul (1.0-4.8); ABS Monocytes 0.5 10^3/ul (0-0.8); ABS Neutrophils 11.9 10^3/ul (1.5-7.7); Eosinophil % 0.3 %; Hematocrit 31 % (35-47); Hemoglobin 9.7 g/dL (12.0-16.0); Mean Corpuscular HGB Conc 32 g/dL (31-36); Mean Corpuscular Hemoglobin 27 pg (27-31); Mean Corpuscular Volume 84 fL (80-97); Mean Platelet Volume 7.7 fL (7.4-10.4); Nucleated Red Blood Cells % 0.1; Platelet Count 397 10^3/uL (150-450); Red Blood Count 3.66 10^6 /uL (3.70-4.87); Red Cell Distribution Width 16 % (10-15); White Blood Count 13.3 10^3/uL (3.5-10.8)
[2022-09-30 15:56] LABS: Albumin 3.9 g/dL (3.2-5.2); Calcium 9.6 mg/dL (8.6-10.3); Creatinine, Serum 0.83 mg/dL (0.51-0.95); Potassium 4.3 mmol/L (3.5-5.0); Total Bilirubin 0.5 mg/dL (0.2-1.0); Total Protein 7.9 g/dL (6.4-8.9); eGFR CKD-EPI 67.8 (>60)
[2022-09-30 16:52] LABS: Urine Appearance Cloudy; Urine Bilirubin Negative (Negative); Urine Blood Negative (Negative); Urine Color Yellow; Urine Glucose Negative (Negative); Urine Ketones Negative (Negative); Urine Nitrite Negative (Negative); Urine Protein Negative (Negative); Urine Specific Gravity 1.013 (1.002-1.030); Urine Urobilinogen Negative (Negative)
[2022-09-30 16:53] LABS: INR 1.14 (0.88-1.18)
[2022-09-30 16:55] LABS: Urine Bacteria 3+ (Absent); Urine Red Blood Cell 1+(3-5/hpf) (Absent); Urine Squamous Epithelial Cell Present (Absent); Urine White Blood Cell 3+(>20/hpf) (Absent)
[2022-09-30] MEDS ORDERED: HYDROmorphone 0.5 MG/0.5 ML SYRINGE IV ONE (17:17)
[2022-09-30 17:20] LABS: Activated Partial Thrombo Time 36.6 seconds (26.0-38.0)
[2022-09-30] MEDS ORDERED: Enoxaparin 40 MG/0.4 ML SYR SUBCUT ONE (18:01)
[2022-09-30] MEDS ORDERED: Albuterol HFA INHALER 8 gm MDI INH PRN (18:01)
[2022-09-30] MEDS: HYDROmorphone 0.5 MG/0.5 ML SYRINGE IV SLOW PU PRN ×2 (18:26→22:30)
[2022-09-30] MEDS: fentaNYL PATCH 75 MCG/HR 1 PATCH TRANSDERM SCH (20:12)
[2022-09-30] MEDS: fentaNYL Patch Check Q Shift NOTE FOLLOW UP SCH (20:12)
[2022-09-30] MEDS: MAGNESIUM GLYCINATE PO SCH (20:23)
[2022-09-30] MEDS: Potassium Chlor 20 meq TAB.ER PO SCH (20:24)
[2022-09-30] MEDS ORDERED: Magnesium Hydroxide LIQ 30 ML UDC PO PRN (21:37)
[2022-09-30] MEDS ORDERED: Senna TAB 8.6 mg TAB PO PRN (21:37)
[2022-09-30] MEDS ORDERED: Polyethylene Glycol 3350 17 GM PACKET PO PRN (21:37)
[2022-10-01] MEDS: HYDROmorphone 0.5 MG/0.5 ML SYRINGE IV SLOW PU PRN ×2 (03:38→08:22)
[2022-10-01 05:46] LABS: ABS Eosinophils 0.3 10^3/ul (0-0.6); ABS Monocytes 0.5 10^3/ul (0-0.8); ABS Neutrophils 6.2 10^3/ul (1.5-7.7); Eosinophil % 4.1 %; Hematocrit 27 % (35-47); Hemoglobin 8.5 g/dL (12.0-16.0); Lymphocyte % 12.5 %; Mean Corpuscular HGB Conc 31 g/dL (31-36); Mean Corpuscular Hemoglobin 26 pg (27-31); Mean Corpuscular Volume 83 fL (80-97); Mean Platelet Volume 7.8 fL (7.4-10.4); Platelet Count 328 10^3/uL (150-450); Red Blood Count 3.26 10^6 /uL (3.70-4.87); Red Cell Distribution Width 16 % (10-15); White Blood Count 8.1 10^3/uL (3.5-10.8)
[2022-10-01 06:08] LABS: Creatinine, Serum 1.02 mg/dL (0.51-0.95); Potassium 4.5 mmol/L (3.5-5.0); eGFR CKD-EPI 52.9 (>60)
[2022-10-01] MEDS: fentaNYL Patch Check Q Shift NOTE FOLLOW UP SCH ×2 (07:21→21:34)
[2022-10-01] MEDS: Potassium Chlor 20 meq TAB.ER PO SCH ×4 (08:25→21:35)
[2022-10-01] MEDS: Estradiol 0.5 mg TAB (NF) PO SCH (08:30)
[2022-10-01] MEDS: CMC:FLUTICAS/UMECLI/VILANT 200-62.5-25 MDI (NF) INH SCH (08:34)
[2022-10-01] MEDS ORDERED: NS 0.9% 1000 ml BAG 1,000 ML IV SCH ×2 (09:15→09:23)
[2022-10-01] MEDS: Polyethylene Glycol 3350 17 GM PACKET PO SCH (10:14)
[2022-10-01] MEDS: Acetaminophen IV 1 GM/100ML 1,000 MG/100 ML BAG IV SCH ×3 (10:14→21:39)
[2022-10-01] MEDS: MAGNESIUM GLYCINATE PO SCH ×4 (10:40→21:39)
[2022-10-01] MEDS: HYDROmorphone 1 MG/1 ML SYRINGE IV PRN ×7 (17:30→19:43)
[2022-10-01] MEDS ORDERED: Naloxone 0.4 mg VIAL 0.4 mg/ml 1 ml VIAL IV PRN ×2 (17:37→17:39)
[2022-10-01 17:55] LABS: PCO2 Arterial 41 mmHg (35-45); PO2 Arterial 92 mmHg (80-100)
[2022-10-01 18:04] LABS: Hematocrit 30 % (35-47); Hemoglobin 9.4 g/dL (12.0-16.0)
[2022-10-01 18:12] LABS: Creatinine, Serum 1.1 mg/dL (0.51-0.95); eGFR CKD-EPI 48.3 (>60)
[2022-10-01] MEDS ORDERED: HYDROmorphone 1 MG/1 ML SYRINGE ONE (19:39)
[2022-10-01] MEDS ORDERED: Senna TAB 8.6 mg TAB PO SCH (21:00)
[2022-10-01] MEDS: Morphine ORAL.SOLN 10 mg 2 mg/ml UDC 5 ml (10 mg) PO PRN (21:47)
[2022-10-01 23:30] LABS: ABS Lymphocytes 0.6 10^3/ul (1.0-4.8); ABS Monocytes 0.6 10^3/ul (0-0.8); ABS Neutrophils 9.8 10^3/ul (1.5-7.7); Eosinophil % 0.1 %; Hematocrit 26 % (35-47); Lymphocyte % 5.3 %; Mean Corpuscular HGB Conc 31 g/dL (31-36); Mean Corpuscular Hemoglobin 26 pg (27-31); Mean Corpuscular Volume 84 fL (80-97); Mean Platelet Volume 7.6 fL (7.4-10.4); Platelet Count 326 10^3/uL (150-450); Red Blood Count 3.11 10^6 /uL (3.70-4.87); Red Cell Distribution Width 16 % (10-15); White Blood Count 11.1 10^3/uL (3.5-10.8)
[2022-10-02 00:06] LABS: Calcium 8.5 mg/dL (8.6-10.3); Creatinine, Serum 1.02 mg/dL (0.51-0.95); Magnesium 2.3 mg/dL (1.9-2.7); Potassium 3.7 mmol/L (3.5-5.0); eGFR CKD-EPI 52.9 (>60)
[2022-10-02] MEDS: Vancomycin 1000 MG in NS 0.9% 250 ML IVPB SCH ×2 (02:27→14:07)
[2022-10-02] MEDS: Acetaminophen IV 1 GM/100ML 1,000 MG/100 ML BAG IV SCH ×4 (02:37→21:24)
[2022-10-02] MEDS: HYDROmorphone 0.5 MG/0.5 ML SYRINGE IV SLOW PU PRN ×3 (05:43→19:47)
[2022-10-02 06:08] LABS: Hematocrit 25 % (35-47); Hemoglobin 7.8 g/dL (12.0-16.0); Mean Platelet Volume 8.1 fL (7.4-10.4); Platelet Count 321 10^3/uL (150-450)
[2022-10-02] MEDS: fentaNYL Patch Check Q Shift NOTE FOLLOW UP SCH ×2 (06:56→20:20)
[2022-10-02 07:30] LABS: Calcium 8.6 mg/dL (8.6-10.3); Creatinine, Serum 0.95 mg/dL (0.51-0.95); Potassium 4.1 mmol/L (3.5-5.0); eGFR CKD-EPI 57.6 (>60)
[2022-10-02] MEDS: Estradiol 0.5 mg TAB (NF) PO SCH (09:17)
[2022-10-02] MEDS: MAGNESIUM GLYCINATE PO SCH ×4 (09:17→21:16)
[2022-10-02] MEDS: Polyethylene Glycol 3350 17 GM PACKET PO SCH (09:17)
[2022-10-02] MEDS: Potassium Chlor 20 meq TAB.ER PO SCH ×4 (09:18→21:14)
[2022-10-02] MEDS: Morphine ORAL.SOLN 10 mg 2 mg/ml UDC 5 ml (10 mg) PO PRN ×2 (10:28→20:23)
[2022-10-02] MEDS: CMC:FLUTICAS/UMECLI/VILANT 200-62.5-25 MDI (NF) INH SCH (10:44)
[2022-10-02] MEDS: Enoxaparin 40 MG/0.4 ML SYR SUBCUT SCH (11:43)
[2022-10-02] MEDS: Ondansetron ODT 4 mg TAB 4 MG TAB PO PRN (18:02)
[2022-10-02] MEDS ORDERED: Morphine ORAL.SOLN 10 mg 2 mg/ml UDC 5 ml (10 mg) ONE (20:22)
[2022-10-02] MEDS: Senna TAB 8.6 mg TAB PO SCH (21:14)
[2022-10-03] MEDS: Acetaminophen IV 1 GM/100ML 1,000 MG/100 ML BAG IV SCH ×4 (03:40→21:04)
[2022-10-03] MEDS: Morphine ORAL.SOLN 10 mg 2 mg/ml UDC 5 ml (10 mg) PO PRN ×4 (04:04→23:25)
[2022-10-03] MEDS: Ondansetron ODT 4 mg TAB 4 MG TAB PO PRN (04:12)
[2022-10-03 05:53] LABS: ABS Basophils 0.1 10^3/ul (0-0.2); ABS Eosinophils 0.4 10^3/ul (0-0.6); ABS Lymphocytes 1.1 10^3/ul (1.0-4.8); ABS Monocytes 0.8 10^3/ul (0-0.8); ABS Neutrophils 4.9 10^3/ul (1.5-7.7); Eosinophil % 5.5 %; Hematocrit 26 % (35-47); Hemoglobin 8.1 g/dL (12.0-16.0); Lymphocyte % 15.6 %; Mean Corpuscular HGB Conc 31 g/dL (31-36); Mean Corpuscular Hemoglobin 26 pg (27-31); Mean Corpuscular Volume 83 fL (80-97); Platelet Count 340 10^3/uL (150-450); Red Blood Count 3.11 10^6 /uL (3.70-4.87); Red Cell Distribution Width 16 % (10-15); White Blood Count 7.2 10^3/uL (3.5-10.8)
[2022-10-03 06:16] LABS: CO2 Carbon Dioxide 29 mmol/L (22-32); Calcium 8.9 mg/dL (8.6-10.3); Chloride 102 mmol/L (101-111); Magnesium 2.4 mg/dL (1.9-2.7); Sodium 135 mmol/L (135-145)
[2022-10-03 06:21] LABS: Blood Urea Nitrogen 29 mg/dL (6-24); Creatinine, Serum 1.05 mg/dL (0.51-0.95); Glucose 93 mg/dL (70-100); eGFR CKD-EPI 51.1 (>60)
[2022-10-03 06:25] LABS: Anion Gap 4 mmol/L (2-11)
[2022-10-03] MEDS: fentaNYL Patch Check Q Shift NOTE FOLLOW UP SCH ×2 (06:56→19:14)
[2022-10-03] MEDS: CMC:FLUTICAS/UMECLI/VILANT 200-62.5-25 MDI (NF) INH SCH (07:52)
[2022-10-03] MEDS: Estradiol 0.5 mg TAB (NF) PO SCH (09:14)
[2022-10-03] MEDS: MAGNESIUM GLYCINATE PO SCH ×4 (09:14→21:08)
[2022-10-03] MEDS: Potassium Chlor 20 meq TAB.ER PO SCH ×4 (09:15→21:03)
[2022-10-03] MEDS: Polyethylene Glycol 3350 17 GM PACKET PO SCH (09:16)
[2022-10-03] MEDS: Enoxaparin 40 MG/0.4 ML SYR SUBCUT SCH (09:16)
[2022-10-03] MEDS ORDERED: Polyethylene Glycol 3350 17 GM PACKET PO PRN (15:41)
[2022-10-03] MEDS: Senna TAB 8.6 mg TAB PO SCH (21:03)
[2022-10-03] MEDS: fentaNYL PATCH 75 MCG/HR 1 PATCH TRANSDERM SCH (21:12)
[2022-10-04] MEDS: Acetaminophen IV 1 GM/100ML 1,000 MG/100 ML BAG IV SCH ×2 (03:16→09:56)
[2022-10-04] MEDS: Morphine ORAL.SOLN 10 mg 2 mg/ml UDC 5 ml (10 mg) PO PRN ×2 (05:47→12:28)
[2022-10-04 06:13] LABS: Calcium 8.9 mg/dL (8.6-10.3)
[2022-10-04 06:15] LABS: Potassium 5.1 mmol/L (3.5-5.0)
[2022-10-04 06:18] LABS: Creatinine, Serum 1.06 mg/dL (0.51-0.95); eGFR CKD-EPI 50.5 (>60)
[2022-10-04 06:25] LABS: Hematocrit 26 % (35-47); Hemoglobin 7.9 g/dL (12.0-16.0); Mean Corpuscular HGB Conc 30 g/dL (31-36); Mean Corpuscular Hemoglobin 26 pg (27-31); Mean Corpuscular Volume 85 fL (80-97); Platelet Count 338 10^3/uL (150-450); Red Blood Count 3.07 10^6 /uL (3.70-4.87); Red Cell Distribution Width 16 % (10-15); White Blood Count 7.4 10^3/uL (3.5-10.8)
[2022-10-04] MEDS: fentaNYL Patch Check Q Shift NOTE FOLLOW UP SCH (06:48)
[2022-10-04] MEDS: CMC:FLUTICAS/UMECLI/VILANT 200-62.5-25 MDI (NF) INH SCH (07:55)
[2022-10-04] MEDS: Ondansetron ODT 4 mg TAB 4 MG TAB PO PRN (08:06)
[2022-10-04] MEDS: Enoxaparin 40 MG/0.4 ML SYR SUBCUT SCH (08:30)
[2022-10-04] MEDS: Estradiol 0.5 mg TAB (NF) PO SCH (08:31)
[2022-10-04] MEDS: MAGNESIUM GLYCINATE PO SCH (08:32)
[2022-10-04] MEDS: Potassium Chlor 20 meq TAB.ER PO SCH (09:55)
[2022-10-04 12:42] VITALS: BP 122/54
[2022-10-04] MEDS ORDERED: TROLAMINE SALICYLATE TOPICAL SCH (13:00)
[2022-10-04] MEDS ORDERED: Senna TAB 8.6 mg TAB PO PRN (19:00)
== END 2022-10-04 13:10 | DRG 498 ==
LOC: ED 13:55 → EDHOLD 16:32 → SUATTDRO 16:32 → SSU 17:17
PROVIDERS: ADMIT Internal Medicine; ATTEND Internal Medicine

== ENCOUNTER 2022-10-04 10:17 | Inpatient (IN) ==
[2022-10-04] MEDS ORDERED: Senna TAB 8.6 mg TAB PO PRN (16:30)
[2022-10-04] MEDS ORDERED: Albuterol HFA INHALER 8 gm MDI INH PRN (16:37)
[2022-10-04] MEDS: MAGNESIUM GLYCINATE 665 MG PO SCH ×2 (19:03→21:16)
[2022-10-04] MEDS: Morphine ORAL.SOLN 10 mg 2 mg/ml UDC 5 ml (10 mg) PO PRN (19:04)
[2022-10-04] MEDS: [UNRECOGNIZED DRUG - OTHER] TOPICAL PRN (20:00)
[2022-10-04] MEDS ORDERED: HYDROmorphone 1 MG/1 ML SYRINGE IV SLOW PU ONE (20:29)
[2022-10-05] MEDS: Morphine ORAL.SOLN 10 mg 2 mg/ml UDC 5 ml (10 mg) PO PRN ×3 (06:09→20:00)
[2022-10-05 06:28] LABS: ABS Basophils 0.1 10^3/ul (0-0.2); ABS Eosinophils 0.5 10^3/ul (0-0.6); ABS Lymphocytes 1.7 10^3/ul (1.0-4.8); ABS Monocytes 0.9 10^3/ul (0-0.8); ABS Neutrophils 4.5 10^3/ul (1.5-7.7); Eosinophil % 6.9 %; Hematocrit 27 % (35-47); Hemoglobin 8.6 g/dL (12.0-16.0); Lymphocyte % 22.1 %; Mean Corpuscular HGB Conc 32 g/dL (31-36); Mean Corpuscular Hemoglobin 27 pg (27-31); Mean Corpuscular Volume 83 fL (80-97); Mean Platelet Volume 7.8 fL (7.4-10.4); Nucleated Red Blood Cells % 0.1; Platelet Count 387 10^3/uL (150-450); Red Blood Count 3.23 10^6 /uL (3.70-4.87); Red Cell Distribution Width 17 % (10-15); White Blood Count 7.7 10^3/uL (3.5-10.8)
[2022-10-05 06:45] LABS: Albumin 3.3 g/dL (3.2-5.2); Calcium 9.3 mg/dL (8.6-10.3); Creatinine, Serum 1.03 mg/dL (0.51-0.95); Globulin 3.4 g/dL (2-4); Potassium 3.9 mmol/L (3.5-5.0); Total Bilirubin 0.4 mg/dL (0.2-1.0); Total Protein 6.7 g/dL (6.4-8.9); eGFR CKD-EPI 52.3 (>60)
[2022-10-05] MEDS: MAGNESIUM GLYCINATE 665 MG PO SCH ×4 (09:09→20:00)
[2022-10-05] MEDS: ESTRADIOL 0.5 MG PO SCH (09:09)
[2022-10-05] MEDS: FLUTICAS/UMECLI/VILANT 200-62.5-25 MDI (NF) INH SCH (09:15)
[2022-10-05] MEDS: Enoxaparin 40 MG/0.4 ML SYR SUBCUT SCH (12:38)
[2022-10-05] MEDS ORDERED: fentaNYL PATCH 75 MCG/HR 1 PATCH TRANSDERM SCH (16:00)
[2022-10-05] MEDS: fentaNYL Patch Check Q Shift NOTE FOLLOW UP SCH ×2 (17:19→23:23)
[2022-10-05] MEDS: Potassium Chlor 20 meq TAB.ER PO SCH ×2 (17:23→20:03)
[2022-10-06] MEDS: Morphine ORAL.SOLN 10 mg 2 mg/ml UDC 5 ml (10 mg) PO PRN ×5 (00:11→20:51)
[2022-10-06] MEDS: fentaNYL Patch Check Q Shift NOTE FOLLOW UP SCH ×3 (07:05→23:19)
[2022-10-06] MEDS: FLUTICAS/UMECLI/VILANT 200-62.5-25 MDI (NF) INH SCH (08:33)
[2022-10-06] MEDS: ESTRADIOL 0.5 MG PO SCH (08:35)
[2022-10-06] MEDS: Potassium Chlor 20 meq TAB.ER PO SCH ×4 (08:37→20:50)
[2022-10-06] MEDS: MAGNESIUM GLYCINATE 665 MG PO SCH ×4 (08:59→20:51)
[2022-10-06] MEDS: [UNRECOGNIZED DRUG - OTHER] TOPICAL PRN ×2 (09:18→22:41)
[2022-10-06] MEDS: Enoxaparin 40 MG/0.4 ML SYR SUBCUT SCH (13:41)
[2022-10-06] MEDS: fentaNYL PATCH 75 MCG/HR 1 PATCH TRANSDERM SCH (16:55)
[2022-10-07] MEDS: Morphine ORAL.SOLN 10 mg 2 mg/ml UDC 5 ml (10 mg) PO PRN ×4 (02:53→21:24)
[2022-10-07] MEDS: fentaNYL Patch Check Q Shift NOTE FOLLOW UP SCH ×3 (06:48→23:20)
[2022-10-07] MEDS: ESTRADIOL 0.5 MG PO SCH (08:22)
[2022-10-07] MEDS: Polyethylene Glycol 3350 17 GM PACKET PO SCH (08:22)
[2022-10-07] MEDS: MAGNESIUM GLYCINATE 665 MG PO SCH ×4 (08:22→21:31)
[2022-10-07] MEDS: FLUTICAS/UMECLI/VILANT 200-62.5-25 MDI (NF) INH SCH (08:25)
[2022-10-07] MEDS: Potassium Chlor 20 meq TAB.ER PO SCH ×4 (08:28→21:31)
[2022-10-07] MEDS: [UNRECOGNIZED DRUG - OTHER] TOPICAL PRN ×3 (08:30→21:32)
[2022-10-07] MEDS ORDERED: Pentafluoroprop/Tetrafluoro 1 SPRAY TOP.SPRAY TOPICAL ONE (11:18)
[2022-10-07] MEDS: Enoxaparin 40 MG/0.4 ML SYR SUBCUT SCH (12:49)
[2022-10-08] MEDS: Morphine ORAL.SOLN 10 mg 2 mg/ml UDC 5 ml (10 mg) PO PRN ×5 (02:40→21:49)
[2022-10-08] MEDS: fentaNYL Patch Check Q Shift NOTE FOLLOW UP SCH ×3 (07:23→23:20)
[2022-10-08] MEDS: FLUTICAS/UMECLI/VILANT 200-62.5-25 MDI (NF) INH SCH (07:43)
[2022-10-08] MEDS: Polyethylene Glycol 3350 17 GM PACKET PO SCH (07:44)
[2022-10-08] MEDS: MAGNESIUM GLYCINATE 665 MG PO SCH ×4 (07:46→21:52)
[2022-10-08] MEDS: ESTRADIOL 0.5 MG PO SCH (07:47)
[2022-10-08] MEDS: Potassium Chlor 20 meq TAB.ER PO SCH ×4 (07:48→21:51)
[2022-10-08] MEDS: [UNRECOGNIZED DRUG - OTHER] TOPICAL PRN ×2 (08:27→21:52)
[2022-10-08] MEDS: Enoxaparin 40 MG/0.4 ML SYR SUBCUT SCH (11:59)
[2022-10-08] MEDS: Magnesium Hydroxide LIQ 30 ML UDC PO PRN (12:10)
[2022-10-08] MEDS ORDERED: Lactulose 30 ml UDC PO PRN (19:36)
[2022-10-08] MEDS: Senna TAB 8.6 mg TAB PO SCH (21:51)
[2022-10-09] MEDS: Morphine ORAL.SOLN 10 mg 2 mg/ml UDC 5 ml (10 mg) PO PRN ×5 (02:43→21:39)
[2022-10-09] MEDS: fentaNYL Patch Check Q Shift NOTE FOLLOW UP SCH ×3 (07:22→22:58)
[2022-10-09 07:49] LABS: Creatinine, Serum 0.96 mg/dL (0.51-0.95); Potassium 4.6 mmol/L (3.5-5.0); eGFR CKD-EPI 56.9 (>60)
[2022-10-09] MEDS: [UNRECOGNIZED DRUG - OTHER] TOPICAL PRN ×2 (08:07→21:40)
[2022-10-09] MEDS: Polyethylene Glycol 3350 17 GM PACKET PO SCH (09:19)
[2022-10-09] MEDS: ESTRADIOL 0.5 MG PO SCH (09:25)
[2022-10-09] MEDS: FLUTICAS/UMECLI/VILANT 200-62.5-25 MDI (NF) INH SCH (09:25)
[2022-10-09] MEDS: Potassium Chlor 20 meq TAB.ER PO SCH ×4 (09:26→21:39)
[2022-10-09] MEDS: Senna TAB 8.6 mg TAB PO SCH ×2 (09:26→21:39)
[2022-10-09] MEDS: MAGNESIUM GLYCINATE 665 MG PO SCH ×4 (09:29→21:39)
[2022-10-09 10:57] LABS: C Reactive Protein 78.85 mg/L (<8.01)
[2022-10-09] MEDS: Enoxaparin 40 MG/0.4 ML SYR SUBCUT SCH (13:03)
[2022-10-09] MEDS: fentaNYL PATCH 75 MCG/HR 1 PATCH TRANSDERM SCH (17:20)
[2022-10-10] MEDS: Morphine ORAL.SOLN 10 mg 2 mg/ml UDC 5 ml (10 mg) PO PRN ×5 (01:51→23:35)
[2022-10-10] MEDS: fentaNYL Patch Check Q Shift NOTE FOLLOW UP SCH ×2 (07:08→22:31)
[2022-10-10] MEDS: FLUTICAS/UMECLI/VILANT 200-62.5-25 MDI (NF) INH SCH (09:12)
[2022-10-10] MEDS: ESTRADIOL 0.5 MG PO SCH (09:13)
[2022-10-10] MEDS: Potassium Chlor 20 meq TAB.ER PO SCH ×4 (09:15→20:31)
[2022-10-10] MEDS: Polyethylene Glycol 3350 17 GM PACKET PO SCH (09:15)
[2022-10-10] MEDS: Senna TAB 8.6 mg TAB PO SCH ×2 (09:15→20:31)
[2022-10-10] MEDS: MAGNESIUM GLYCINATE 665 MG PO SCH ×4 (09:21→20:31)
[2022-10-10] MEDS: Enoxaparin 40 MG/0.4 ML SYR SUBCUT SCH (12:56)
[2022-10-11] MEDS: Morphine ORAL.SOLN 10 mg 2 mg/ml UDC 5 ml (10 mg) PO PRN ×5 (06:05→23:45)
[2022-10-11] MEDS: fentaNYL Patch Check Q Shift NOTE FOLLOW UP SCH ×2 (06:59→18:49)
[2022-10-11] MEDS: FLUTICAS/UMECLI/VILANT 200-62.5-25 MDI (NF) INH SCH (08:26)
[2022-10-11] MEDS: Senna TAB 8.6 mg TAB PO SCH ×2 (09:11→20:03)
[2022-10-11] MEDS: Potassium Chlor 20 meq TAB.ER PO SCH ×4 (09:12→20:03)
[2022-10-11] MEDS: Polyethylene Glycol 3350 17 GM PACKET PO SCH (09:14)
[2022-10-11] MEDS: ESTRADIOL 0.5 MG PO SCH (09:45)
[2022-10-11] MEDS: MAGNESIUM GLYCINATE 665 MG PO SCH ×4 (09:45→20:02)
[2022-10-11] MEDS: [UNRECOGNIZED DRUG - OTHER] TOPICAL PRN (09:54)
[2022-10-11] MEDS: Enoxaparin 40 MG/0.4 ML SYR SUBCUT SCH (12:00)
[2022-10-12] MEDS: Morphine ORAL.SOLN 10 mg 2 mg/ml UDC 5 ml (10 mg) PO PRN ×5 (04:05→20:56)
[2022-10-12] MEDS: fentaNYL Patch Check Q Shift NOTE FOLLOW UP SCH ×3 (07:00→23:33)
[2022-10-12 07:14] LABS: Albumin 3.1 g/dL (3.2-5.2); Creatinine, Serum 1.08 mg/dL (0.51-0.95); Globulin 3.2 g/dL (2-4); Potassium 4.5 mmol/L (3.5-5.0); Total Bilirubin 0.3 mg/dL (0.2-1.0); Total Protein 6.3 g/dL (6.4-8.9); eGFR CKD-EPI 49.4 (>60)
[2022-10-12 07:16] LABS: ABS Basophils 0.1 10^3/ul (0-0.2); ABS Eosinophils 0.4 10^3/ul (0-0.6); ABS Lymphocytes 1.5 10^3/ul (1.0-4.8); ABS Monocytes 0.8 10^3/ul (0-0.8); ABS Neutrophils 6.1 10^3/ul (1.5-7.7); Eosinophil % 4.2 %; Hematocrit 25 % (35-47); Hemoglobin 8.2 g/dL (12.0-16.0); Lymphocyte % 17.3 %; Mean Corpuscular HGB Conc 33 g/dL (31-36); Mean Corpuscular Hemoglobin 28 pg (27-31); Mean Corpuscular Volume 82 fL (80-97); Mean Platelet Volume 7.4 fL (7.4-10.4); Platelet Count 462 10^3/uL (150-450); Red Blood Count 2.97 10^6 /uL (3.70-4.87); Red Cell Distribution Width 17 % (10-15); White Blood Count 8.8 10^3/uL (3.5-10.8)
[2022-10-12] MEDS: Polyethylene Glycol 3350 17 GM PACKET PO SCH (07:32)
[2022-10-12] MEDS: ESTRADIOL 0.5 MG PO SCH (07:34)
[2022-10-12] MEDS: MAGNESIUM GLYCINATE 665 MG PO SCH ×4 (07:34→20:57)
[2022-10-12] MEDS: FLUTICAS/UMECLI/VILANT 200-62.5-25 MDI (NF) INH SCH (07:35)
[2022-10-12] MEDS: Potassium Chlor 20 meq TAB.ER PO SCH ×4 (07:36→20:57)
[2022-10-12] MEDS: Senna TAB 8.6 mg TAB PO SCH ×2 (07:37→20:57)
[2022-10-12] MEDS: [UNRECOGNIZED DRUG - OTHER] TOPICAL PRN ×2 (07:41→22:29)
[2022-10-12] MEDS: Enoxaparin 40 MG/0.4 ML SYR SUBCUT SCH (11:48)
[2022-10-12] MEDS: fentaNYL PATCH 75 MCG/HR 1 PATCH TRANSDERM SCH (17:29)
[2022-10-13] MEDS: Morphine ORAL.SOLN 10 mg 2 mg/ml UDC 5 ml (10 mg) PO PRN ×5 (04:04→22:08)
[2022-10-13] MEDS: fentaNYL Patch Check Q Shift NOTE FOLLOW UP SCH ×3 (07:12→23:14)
[2022-10-13] MEDS: FLUTICAS/UMECLI/VILANT 200-62.5-25 MDI (NF) INH SCH (08:35)
[2022-10-13] MEDS: Senna TAB 8.6 mg TAB PO SCH ×2 (08:36→21:17)
[2022-10-13] MEDS: ESTRADIOL 0.5 MG PO SCH (08:36)
[2022-10-13] MEDS: Potassium Chlor 20 meq TAB.ER PO SCH ×4 (08:36→21:19)
[2022-10-13] MEDS: [UNRECOGNIZED DRUG - OTHER] TOPICAL PRN ×2 (08:36→22:11)
[2022-10-13] MEDS: Polyethylene Glycol 3350 17 GM PACKET PO SCH (09:05)
[2022-10-13] MEDS: MAGNESIUM GLYCINATE 665 MG PO SCH ×4 (09:05→21:17)
[2022-10-13] MEDS: Enoxaparin 40 MG/0.4 ML SYR SUBCUT SCH (12:32)
[2022-10-13] MEDS ORDERED: fentaNYL PATCH 75 MCG/HR 1 PATCH TRANSDERM SCH (19:00)
[2022-10-14] MEDS: Morphine ORAL.SOLN 10 mg 2 mg/ml UDC 5 ml (10 mg) PO PRN ×5 (02:25→21:51)
[2022-10-14] MEDS: fentaNYL Patch Check Q Shift NOTE FOLLOW UP SCH ×2 (07:09→23:29)
[2022-10-14] MEDS: FLUTICAS/UMECLI/VILANT 200-62.5-25 MDI (NF) INH SCH (08:15)
[2022-10-14] MEDS: Polyethylene Glycol 3350 17 GM PACKET PO SCH (08:15)
[2022-10-14] MEDS: ESTRADIOL 0.5 MG PO SCH (08:16)
[2022-10-14] MEDS: MAGNESIUM GLYCINATE 665 MG PO SCH ×4 (08:16→21:15)
[2022-10-14] MEDS: Senna TAB 8.6 mg TAB PO SCH ×2 (08:18→21:15)
[2022-10-14] MEDS: Potassium Chlor 20 meq TAB.ER PO SCH ×4 (08:18→21:15)
[2022-10-14] MEDS: [UNRECOGNIZED DRUG - OTHER] TOPICAL PRN ×3 (08:23→22:50)
[2022-10-14] MEDS ORDERED: Enoxaparin 30 MG/0.3 ML SYR SUBCUT SCH (12:00)
[2022-10-15] MEDS: Morphine ORAL.SOLN 10 mg 2 mg/ml UDC 5 ml (10 mg) PO PRN ×5 (05:04→21:45)
[2022-10-15] MEDS: fentaNYL Patch Check Q Shift NOTE FOLLOW UP SCH ×4 (07:06→22:57)
[2022-10-15] MEDS: Polyethylene Glycol 3350 17 GM PACKET PO SCH (08:42)
[2022-10-15] MEDS: [UNRECOGNIZED DRUG - OTHER] TOPICAL PRN ×2 (08:42→22:07)
[2022-10-15] MEDS: ESTRADIOL 0.5 MG PO SCH (08:43)
[2022-10-15] MEDS: MAGNESIUM GLYCINATE 665 MG PO SCH ×4 (08:43→20:37)
[2022-10-15] MEDS: FLUTICAS/UMECLI/VILANT 200-62.5-25 MDI (NF) INH SCH (08:43)
[2022-10-15] MEDS: Potassium Chlor 20 meq TAB.ER PO SCH ×4 (08:45→20:38)
[2022-10-15] MEDS: Senna TAB 8.6 mg TAB PO SCH ×2 (08:45→20:38)
[2022-10-15] MEDS: Enoxaparin 30 MG/0.3 ML SYR SUBCUT SCH (08:51)
[2022-10-15] MEDS: fentaNYL PATCH 75 MCG/HR 1 PATCH TRANSDERM SCH (17:11)
[2022-10-16] MEDS: Morphine ORAL.SOLN 10 mg 2 mg/ml UDC 5 ml (10 mg) PO PRN ×4 (06:01→22:41)
[2022-10-16] MEDS: fentaNYL Patch Check Q Shift NOTE FOLLOW UP SCH ×3 (07:22→23:09)
[2022-10-16] MEDS: ESTRADIOL 0.5 MG PO SCH (08:28)
[2022-10-16] MEDS: MAGNESIUM GLYCINATE 665 MG PO SCH ×4 (08:28→21:12)
[2022-10-16] MEDS: FLUTICAS/UMECLI/VILANT 200-62.5-25 MDI (NF) INH SCH (08:28)
[2022-10-16] MEDS: Polyethylene Glycol 3350 17 GM PACKET PO SCH (08:29)
[2022-10-16] MEDS: Senna TAB 8.6 mg TAB PO SCH ×2 (08:30→21:15)
[2022-10-16] MEDS: Potassium Chlor 20 meq TAB.ER PO SCH ×4 (08:30→21:11)
[2022-10-16] MEDS: Enoxaparin 30 MG/0.3 ML SYR SUBCUT SCH (08:34)
[2022-10-16] MEDS: [UNRECOGNIZED DRUG - OTHER] TOPICAL PRN ×2 (09:39→22:41)
[2022-10-17] MEDS: Morphine ORAL.SOLN 10 mg 2 mg/ml UDC 5 ml (10 mg) PO PRN ×5 (05:10→23:31)
[2022-10-17] MEDS: fentaNYL Patch Check Q Shift NOTE FOLLOW UP SCH ×3 (07:28→21:36)
[2022-10-17] MEDS: Polyethylene Glycol 3350 17 GM PACKET PO SCH (09:44)
[2022-10-17] MEDS: Potassium Chlor 20 meq TAB.ER PO SCH ×4 (09:45→21:36)
[2022-10-17] MEDS: Senna TAB 8.6 mg TAB PO SCH ×2 (09:45→21:35)
[2022-10-17] MEDS: FLUTICAS/UMECLI/VILANT 200-62.5-25 MDI (NF) INH SCH (09:47)
[2022-10-17] MEDS: MAGNESIUM GLYCINATE 665 MG PO SCH ×4 (09:47→21:37)
[2022-10-17] MEDS: ESTRADIOL 0.5 MG PO SCH (09:47)
[2022-10-17] MEDS: [UNRECOGNIZED DRUG - OTHER] TOPICAL PRN ×2 (09:48→23:32)
[2022-10-17] MEDS: Enoxaparin 30 MG/0.3 ML SYR SUBCUT SCH (09:49)
[2022-10-18] MEDS: Morphine ORAL.SOLN 10 mg 2 mg/ml UDC 5 ml (10 mg) PO PRN ×4 (05:20→21:36)
[2022-10-18] MEDS: fentaNYL Patch Check Q Shift NOTE FOLLOW UP SCH ×3 (07:07→19:44)
[2022-10-18] MEDS: Polyethylene Glycol 3350 17 GM PACKET PO SCH (08:09)
[2022-10-18] MEDS: MAGNESIUM GLYCINATE 665 MG PO SCH ×4 (08:12→20:01)
[2022-10-18] MEDS: Potassium Chlor 20 meq TAB.ER PO SCH ×4 (08:12→20:00)
[2022-10-18] MEDS: Senna TAB 8.6 mg TAB PO SCH ×2 (08:12→20:00)
[2022-10-18] MEDS: ESTRADIOL 0.5 MG PO SCH (08:14)
[2022-10-18] MEDS: FLUTICAS/UMECLI/VILANT 200-62.5-25 MDI (NF) INH SCH (08:15)
[2022-10-18] MEDS: Enoxaparin 30 MG/0.3 ML SYR SUBCUT SCH (08:18)
[2022-10-18] MEDS: [UNRECOGNIZED DRUG - OTHER] TOPICAL PRN ×2 (09:35→23:24)
[2022-10-18] MEDS: fentaNYL PATCH 75 MCG/HR 1 PATCH TRANSDERM SCH (17:13)
[2022-10-19] MEDS: Morphine ORAL.SOLN 10 mg 2 mg/ml UDC 5 ml (10 mg) PO PRN ×5 (05:20→23:52)
[2022-10-19] MEDS: [UNRECOGNIZED DRUG - OTHER] TOPICAL PRN ×2 (05:23→21:56)
[2022-10-19 07:04] LABS: Hematocrit 26 % (35-47); Hemoglobin 8.2 g/dL (12.0-16.0); Mean Corpuscular HGB Conc 31 g/dL (31-36); Mean Corpuscular Hemoglobin 26 pg (27-31); Mean Corpuscular Volume 82 fL (80-97); Red Blood Count 3.21 10^6 /uL (3.70-4.87); Red Cell Distribution Width 17 % (10-15)
[2022-10-19 07:08] LABS: Albumin 3.3 g/dL (3.2-5.2); Calcium 9.2 mg/dL (8.6-10.3); Potassium 4.4 mmol/L (3.5-5.0); Total Bilirubin 0.3 mg/dL (0.2-1.0)
[2022-10-19 07:14] LABS: Creatinine, Serum 0.87 mg/dL (0.51-0.95); Globulin 3.4 g/dL (2-4); Total Protein 6.7 g/dL (6.4-8.9)
[2022-10-19] MEDS: fentaNYL Patch Check Q Shift NOTE FOLLOW UP SCH ×3 (07:21→23:00)
[2022-10-19 07:49] LABS: ABS Basophils 0.1 10^3/ul (0-0.2); ABS Eosinophils 0.7 10^3/ul (0-0.6); ABS Lymphocytes 2.8 10^3/ul (1.0-4.8); ABS Monocytes 1.1 10^3/ul (0-0.8); Eosinophil % 5.2 %; Lymphocyte % 22.5 %; Mean Platelet Volume 7.8 fL (7.4-10.4); Nucleated Red Blood Cells % 0.3; Platelet Count 557 10^3/uL (150-450); White Blood Count 12.7 10^3/uL (3.5-10.8)
[2022-10-19] MEDS: Polyethylene Glycol 3350 17 GM PACKET PO SCH (08:52)
[2022-10-19] MEDS: Enoxaparin 30 MG/0.3 ML SYR SUBCUT SCH (08:52)
[2022-10-19] MEDS: MAGNESIUM GLYCINATE 665 MG PO SCH ×4 (08:53→19:54)
[2022-10-19] MEDS: ESTRADIOL 0.5 MG PO SCH (08:54)
[2022-10-19] MEDS: Senna TAB 8.6 mg TAB PO SCH ×2 (08:55→19:52)
[2022-10-19] MEDS: Potassium Chlor 20 meq TAB.ER PO SCH ×4 (08:57→19:54)
[2022-10-19] MEDS: FLUTICAS/UMECLI/VILANT 200-62.5-25 MDI (NF) INH SCH (08:58)
[2022-10-19] MEDS ORDERED: Calcium Carb (TUMS) 500 mg CHEW TAB PO PRN (20:02)
[2022-10-20] MEDS: Morphine ORAL.SOLN 10 mg 2 mg/ml UDC 5 ml (10 mg) PO PRN ×4 (05:45→20:44)
[2022-10-20] MEDS: fentaNYL Patch Check Q Shift NOTE FOLLOW UP SCH ×3 (06:57→23:07)
[2022-10-20] MEDS: MAGNESIUM GLYCINATE 665 MG PO SCH ×4 (08:19→20:42)
[2022-10-20] MEDS: [UNRECOGNIZED DRUG - OTHER] TOPICAL PRN ×2 (08:20→23:11)
[2022-10-20] MEDS: Senna TAB 8.6 mg TAB PO SCH ×2 (08:20→20:42)
[2022-10-20] MEDS: Potassium Chlor 20 meq TAB.ER PO SCH ×4 (08:20→20:43)
[2022-10-20] MEDS: FLUTICAS/UMECLI/VILANT 200-62.5-25 MDI (NF) INH SCH (08:20)
[2022-10-20] MEDS: Enoxaparin 30 MG/0.3 ML SYR SUBCUT SCH (08:21)
[2022-10-20] MEDS: ESTRADIOL 0.5 MG PO SCH (08:21)
[2022-10-20] MEDS: Polyethylene Glycol 3350 17 GM PACKET PO SCH (08:21)
[2022-10-21] MEDS: Morphine ORAL.SOLN 10 mg 2 mg/ml UDC 5 ml (10 mg) PO PRN ×5 (04:23→23:23)
[2022-10-21] MEDS: fentaNYL Patch Check Q Shift NOTE FOLLOW UP SCH ×2 (06:57→23:03)
[2022-10-21] MEDS: Enoxaparin 30 MG/0.3 ML SYR SUBCUT SCH (07:41)
[2022-10-21] MEDS: FLUTICAS/UMECLI/VILANT 200-62.5-25 MDI (NF) INH SCH (07:42)
[2022-10-21] MEDS: Potassium Chlor 20 meq TAB.ER PO SCH ×4 (07:44→21:31)
[2022-10-21] MEDS: Senna TAB 8.6 mg TAB PO SCH ×2 (07:44→21:32)
[2022-10-21] MEDS: Polyethylene Glycol 3350 17 GM PACKET PO SCH (07:46)
[2022-10-21] MEDS: ESTRADIOL 0.5 MG PO SCH (07:55)
[2022-10-21] MEDS: MAGNESIUM GLYCINATE 665 MG PO SCH ×4 (07:59→21:39)
[2022-10-21] MEDS: Magnesium Hydroxide LIQ 30 ML UDC PO PRN (13:03)
[2022-10-21] MEDS: fentaNYL PATCH 75 MCG/HR 1 PATCH TRANSDERM SCH (17:57)
[2022-10-21] MEDS: [UNRECOGNIZED DRUG - OTHER] TOPICAL PRN (23:23)
[2022-10-22] MEDS: Morphine ORAL.SOLN 10 mg 2 mg/ml UDC 5 ml (10 mg) PO PRN ×5 (05:32→23:39)
[2022-10-22] MEDS: fentaNYL Patch Check Q Shift NOTE FOLLOW UP SCH ×3 (07:01→23:36)
[2022-10-22] MEDS: MAGNESIUM GLYCINATE 665 MG PO SCH ×4 (08:41→20:47)
[2022-10-22] MEDS: Potassium Chlor 20 meq TAB.ER PO SCH ×4 (08:42→20:47)
[2022-10-22] MEDS: Polyethylene Glycol 3350 17 GM PACKET PO SCH (08:42)
[2022-10-22] MEDS: Senna TAB 8.6 mg TAB PO SCH ×2 (08:43→20:47)
[2022-10-22] MEDS: FLUTICAS/UMECLI/VILANT 200-62.5-25 MDI (NF) INH SCH (08:43)
[2022-10-22] MEDS: ESTRADIOL 0.5 MG PO SCH (08:44)
[2022-10-22] MEDS: [UNRECOGNIZED DRUG - OTHER] TOPICAL PRN ×2 (08:50→22:46)
[2022-10-22] MEDS: Enoxaparin 30 MG/0.3 ML SYR SUBCUT SCH (08:50)
[2022-10-23] MEDS: Morphine ORAL.SOLN 10 mg 2 mg/ml UDC 5 ml (10 mg) PO PRN ×4 (06:03→21:45)
[2022-10-23] MEDS: fentaNYL Patch Check Q Shift NOTE FOLLOW UP SCH ×2 (07:09→19:46)
[2022-10-23] MEDS: Polyethylene Glycol 3350 17 GM PACKET PO SCH (08:49)
[2022-10-23] MEDS: MAGNESIUM GLYCINATE 665 MG PO SCH ×4 (08:51→21:41)
[2022-10-23] MEDS: [UNRECOGNIZED DRUG - OTHER] TOPICAL PRN (08:51)
[2022-10-23] MEDS: ESTRADIOL 0.5 MG PO SCH (08:51)
[2022-10-23] MEDS: FLUTICAS/UMECLI/VILANT 200-62.5-25 MDI (NF) INH SCH (08:51)
[2022-10-23] MEDS: Senna TAB 8.6 mg TAB PO SCH ×2 (08:53→21:39)
[2022-10-23] MEDS: Potassium Chlor 20 meq TAB.ER PO SCH ×4 (08:53→21:41)
[2022-10-23] MEDS: Enoxaparin 30 MG/0.3 ML SYR SUBCUT SCH (08:55)
[2022-10-23 11:06] LABS: ABS Basophils 0.1 10^3/ul (0-0.2); ABS Eosinophils 0.2 10^3/ul (0-0.6); ABS Lymphocytes 1.2 10^3/ul (1.0-4.8); ABS Monocytes 0.7 10^3/ul (0-0.8); ABS Neutrophils 6.1 10^3/ul (1.5-7.7); Eosinophil % 2.9 %; Hematocrit 28 % (35-47); Hemoglobin 8.6 g/dL (12.0-16.0); Lymphocyte % 14.9 %; Mean Corpuscular HGB Conc 31 g/dL (31-36); Mean Corpuscular Hemoglobin 25 pg (27-31); Mean Corpuscular Volume 80 fL (80-97); Mean Platelet Volume 7.2 fL (7.4-10.4); Platelet Count 494 10^3/uL (150-450); Red Blood Count 3.49 10^6 /uL (3.70-4.87); Red Cell Distribution Width 17 % (10-15); White Blood Count 8.3 10^3/uL (3.5-10.8)
[2022-10-24] MEDS: Morphine ORAL.SOLN 10 mg 2 mg/ml UDC 5 ml (10 mg) PO PRN ×4 (05:27→21:32)
[2022-10-24] MEDS: [UNRECOGNIZED DRUG - OTHER] TOPICAL PRN ×3 (05:31→22:21)
[2022-10-24] MEDS: fentaNYL Patch Check Q Shift NOTE FOLLOW UP SCH ×2 (07:17→19:00)
[2022-10-24] MEDS: Polyethylene Glycol 3350 17 GM PACKET PO SCH (09:30)
[2022-10-24] MEDS: Potassium Chlor 20 meq TAB.ER PO SCH ×4 (10:05→21:31)
[2022-10-24] MEDS: Senna TAB 8.6 mg TAB PO SCH ×2 (10:05→21:31)
[2022-10-24] MEDS: Enoxaparin 30 MG/0.3 ML SYR SUBCUT SCH (10:06)
[2022-10-24] MEDS: FLUTICAS/UMECLI/VILANT 200-62.5-25 MDI (NF) INH SCH (10:07)
[2022-10-24] MEDS: MAGNESIUM GLYCINATE 665 MG PO SCH ×4 (10:08→21:31)
[2022-10-24] MEDS: ESTRADIOL 0.5 MG PO SCH (10:09)
[2022-10-24] MEDS: Magnesium Hydroxide LIQ 30 ML UDC PO PRN (11:34)
[2022-10-24] MEDS: fentaNYL PATCH 75 MCG/HR 1 PATCH TRANSDERM SCH (17:44)
[2022-10-25] MEDS: Morphine ORAL.SOLN 10 mg 2 mg/ml UDC 5 ml (10 mg) PO PRN ×4 (04:47→22:02)
[2022-10-25] MEDS: fentaNYL Patch Check Q Shift NOTE FOLLOW UP SCH ×3 (06:54→22:41)
[2022-10-25] MEDS: FLUTICAS/UMECLI/VILANT 200-62.5-25 MDI (NF) INH SCH (08:53)
[2022-10-25] MEDS: Polyethylene Glycol 3350 17 GM PACKET PO SCH (10:36)
[2022-10-25] MEDS: ESTRADIOL 0.5 MG PO SCH (10:36)
[2022-10-25] MEDS: Senna TAB 8.6 mg TAB PO SCH ×2 (10:37→20:54)
[2022-10-25] MEDS: Potassium Chlor 20 meq TAB.ER PO SCH ×4 (10:37→20:55)
[2022-10-25] MEDS: MAGNESIUM GLYCINATE 665 MG PO SCH ×4 (10:41→20:55)
[2022-10-25] MEDS: Enoxaparin 30 MG/0.3 ML SYR SUBCUT SCH (10:45)
[2022-10-25] MEDS: [UNRECOGNIZED DRUG - OTHER] TOPICAL PRN ×2 (10:46→23:05)
[2022-10-26] MEDS: Morphine ORAL.SOLN 10 mg 2 mg/ml UDC 5 ml (10 mg) PO PRN ×5 (04:28→23:08)
[2022-10-26 06:10] LABS: ABS Eosinophils 0.3 10^3/ul (0-0.6); ABS Lymphocytes 1.4 10^3/ul (1.0-4.8); ABS Monocytes 0.7 10^3/ul (0-0.8); ABS Neutrophils 3.9 10^3/ul (1.5-7.7); Eosinophil % 4.9 %; Hematocrit 25 % (35-47); Hemoglobin 7.6 g/dL (12.0-16.0); Lymphocyte % 22.6 %; Mean Corpuscular HGB Conc 31 g/dL (31-36); Mean Corpuscular Hemoglobin 25 pg (27-31); Mean Corpuscular Volume 81 fL (80-97); Mean Platelet Volume 7.5 fL (7.4-10.4); Platelet Count 356 10^3/uL (150-450); Red Blood Count 3.07 10^6 /uL (3.70-4.87); Red Cell Distribution Width 17 % (10-15); White Blood Count 6.3 10^3/uL (3.5-10.8)
[2022-10-26 06:37] LABS: Albumin 3.2 g/dL (3.2-5.2); Albumin/Globulin Ratio 1.1 (1-3); Calcium 9.1 mg/dL (8.6-10.3); Creatinine, Serum 0.8 mg/dL (0.51-0.95); Globulin 2.9 g/dL (2-4); Potassium 4.2 mmol/L (3.5-5.0); Total Bilirubin 0.2 mg/dL (0.2-1.0); Total Protein 6.1 g/dL (6.4-8.9); eGFR CKD-EPI 70.8 (>60)
[2022-10-26] MEDS: fentaNYL Patch Check Q Shift NOTE FOLLOW UP SCH ×3 (07:17→23:08)
[2022-10-26] MEDS: [UNRECOGNIZED DRUG - OTHER] TOPICAL PRN ×2 (08:15→22:27)
[2022-10-26] MEDS: FLUTICAS/UMECLI/VILANT 200-62.5-25 MDI (NF) INH SCH (08:17)
[2022-10-26] MEDS: MAGNESIUM GLYCINATE 665 MG PO SCH ×4 (08:17→20:20)
[2022-10-26] MEDS: Polyethylene Glycol 3350 17 GM PACKET PO SCH (08:18)
[2022-10-26] MEDS: ESTRADIOL 0.5 MG PO SCH (08:18)
[2022-10-26] MEDS: Potassium Chlor 20 meq TAB.ER PO SCH ×4 (08:19→20:21)
[2022-10-26] MEDS: Senna TAB 8.6 mg TAB PO SCH ×2 (08:19→20:21)
[2022-10-26] MEDS: Enoxaparin 30 MG/0.3 ML SYR SUBCUT SCH (08:21)
[2022-10-26] MEDS ORDERED: DALBAVANCIN HCL (NF) 500 MG/25 ML VIAL IVPB ONE (10:00)
[2022-10-26] MEDS ORDERED: DALVANCE 1500 MG IV ONCE (for CrCl >/= 30 or regular HD) IVPB ONE (10:00)
[2022-10-26 11:08] LABS: C Reactive Protein 43.65 mg/L (<8.01)
[2022-10-27] MEDS: Morphine ORAL.SOLN 10 mg 2 mg/ml UDC 5 ml (10 mg) PO PRN ×3 (04:40→13:38)
[2022-10-27 05:32] VITALS: BP 152/77
[2022-10-27] MEDS: fentaNYL Patch Check Q Shift NOTE FOLLOW UP SCH (07:11)
[2022-10-27] MEDS: FLUTICAS/UMECLI/VILANT 200-62.5-25 MDI (NF) INH SCH (10:07)
[2022-10-27] MEDS: Senna TAB 8.6 mg TAB PO SCH (10:08)
[2022-10-27] MEDS: Potassium Chlor 20 meq TAB.ER PO SCH (10:08)
[2022-10-27] MEDS: MAGNESIUM GLYCINATE 665 MG PO SCH (10:09)
[2022-10-27] MEDS: Polyethylene Glycol 3350 17 GM PACKET PO SCH (10:10)
[2022-10-27] MEDS: ESTRADIOL 0.5 MG PO SCH (10:10)
[2022-10-27] MEDS: [UNRECOGNIZED DRUG - OTHER] TOPICAL PRN (10:32)
[2022-10-27] MEDS: fentaNYL PATCH 75 MCG/HR 1 PATCH TRANSDERM SCH (10:52)
== END 2022-10-27 13:30 | disposition home or self-care (01) | DRG 561 ==
LOC: PMRU 13:43
PROVIDERS: ADMIT Physical Medicine & Rehabilitation; ATTEND Physical Medicine & Rehabilitation